=== PATIENT | female | born 1950 | race Caucasian/White ===

== ENCOUNTER → 2017-07-27 16:54 | Outpatient (CLI) | payer MEDICARE, OTHER, SELFPAY | PROVIDERS: Family Provider Family Medicine Geriatric Medicine; PCP Family Medicine Geriatric Medicine; Visit Provider Family Medicine Geriatric Medicine | DX: R68.83 Chills (without fever) (principal) | CPT/HCPCS: 87633 ==

== ENCOUNTER → 2017-08-10 13:49 | Outpatient (CLI) | payer MEDICARE, OTHER, SELFPAY ==
[2017-08-10 16:22] LABS: Absolute Lymphocyte Count 2.77 X10^3/ul (0.83-4.51); Absolute Neutrophil Count 4.8 X10^3/uL (2.0-7.7); Basophil# 0.03 X10^3/uL; Basophil% 0.4 % (0-1); Eosinophil# 0.08 X10^3/uL; Hematocrit 43.8 % (37-47); Hemoglobin 14.6 g/dl (12.0-15.0); Lymphocyte # 2.77 X10^3/ul (4.0); Lymphocyte % 32.9 % (19-41); Mean Corp Hgb Conc 33.3 g/gl (32-36); Mean Corpuscular Hgb 30.9 pg (27.0-32.0); Mean Corpuscular Volume 92.8 fL (81-99); Mean Platelet Vol. 9.9 fl (6.2-12.0); Monocyte# 0.74 X10^3/uL; Monocyte% 8.8 % (0-10); Neutrophil # 4.77 X10^3/uL (2.7-7.7); Neutrophil % 56.5 % (47-70); Platelet Count 322 K/mm3 (150-450); RBC Distribution Width SD 46.1 fl (35.1-43.9); Red Blood Count 4.72 M/mm3 (4.2-5.4); White Blood Count 8.4 K/mm3 (4.4-11.0)
[2017-08-10 16:23] LABS: POSITIVE COUNT NO; POSITIVE DIFFERENTIAL NO; POSITIVE MORPHOLOGY NO
[2017-08-10 16:40] LABS: Vitamin D,25 Hydroxy 31.4 ng/mL (29.95-100.01)
[2017-08-10 16:51] LABS: ALB/GLOB Ratio 1.1 RATIO (0.9-2.4); AST(SGOT) 26 U/L (15-37); Alanine Aminotransfer ALT/SGPT 38 U/L (13-56); Albumin, Serum 4.1 g/dL (3.2-5.0); Alkaline Phosphatase 57 U/L (45-117); Anion Gap 7 (5-15); BUN 14 mg/dL (7-18); BUN/Creat Ratio 15.4 RATIO (10-20); Calcium,Total 9.4 mg/dL (8.5-10.1); Chloride 105 mmol/L (98-107); Creatinine, Serum 0.91 mg/dL (0.55-1.02); EST Glomerular Filtration Rate 65 mL/min (>60); Est Glom Filt Rate - Afr Amer 79 mL/min (>60); Globulin 3.9 g/dL (2.2-4.2); Glucose 89 mg/dL (74-106); Potassium 4.2 mmol/L (3.5-5.1); Sodium Level 140 mmol/L (136-145)
== END ==
PROVIDERS: Family Provider Family Medicine Geriatric Medicine; PCP Family Medicine Geriatric Medicine; Visit Provider Family Medicine Geriatric Medicine
DX: I10 Essential (primary) hypertension (principal); E55.9 Vitamin D deficiency, unspecified
CPT/HCPCS: 36415; 80053; 82306; 84443; 85025

== ENCOUNTER 2017-08-17 18:15 | Observation (INO) | payer MEDICARE, OTHER, SELFPAY ==
[2017-08-17] VITALS (10 sets, daily range): BP systolic 149–161; BP diastolic 74–91; PULSE 78–101; RESP 16–18; TEMP 36.4–36.8; O2SAT 96–98; BMI 26.8; BMI 26.4
--- NOTE | 2017-08-17 18:31 | EKG12_ITS ---
Test Reason : CP Blood Pressure : / mmHG Vent. Rate : 090 BPM Atrial Rate : 090 BPM P-R Int : 138 ms QRS Dur : 082 ms QT Int : 392 ms P-R-T Axes : 065 -27 083 degrees QTc Int : 479 ms Normal sinus rhythm Nonspecific ST and T wave abnormality Abnormal ECG Confirmed by RADHA CAROLINA, GERARDO ([id number]), city editor NICANOR SANCHEZ ([id number]) on 08/23/2017 9:00:01 AM Referred By: DR RAMON Confirmed By:GERARDO GARCIA MD
--- NOTE | 2017-08-17 18:35 | RAD_ITS ---
STUDY: X-RAY CHEST REASON FOR EXAM: Female, 67 years old. Chest pain. TECHNIQUE: Single AP portable upright view of the chest. COMPARISON: PA and lateral chest x-ray December 09, 2016; CT chest/thorax March 30, 2017. FINDINGS: The lungs are clear and expanded. There is no demonstrated pleural abnormality. Normal size heart. Normal mediastinum and thomas. Normal visualized pulmonary arteries. There is stable atherosclerotic calcification of the aortic arch. There is a stable minor S-shaped scoliosis of the thoracic spine. There is an old healed fracture deformity of the posterolateral left seventh rib. There is no demonstrated abnormality of the visualized soft tissue structures of the upper abdomen. RAD/Chest 1 View (Portable) IMPRESSION: No acute cardiopulmonary disease. Electronically Signed: Shawn Mai MD at 19:22 EDT , Service support ,
[2017-08-17 18:43] LABS: Absolute Lymphocyte Count 3.29 X10^3/ul (0.83-4.51); Absolute Neutrophil Count 5.1 X10^3/uL (2.0-7.7); Basophil# 0.03 X10^3/uL; Basophil% 0.3 % (0-1); Eosinophil# 0.08 X10^3/uL; Eosinophils% 0.9 % (0-5); Hematocrit 44.1 % (37-47); Hemoglobin 15.2 g/dl (12.0-15.0); Lymphocyte # 3.29 X10^3/ul (4.0); Lymphocyte % 35.5 % (19-41); Mean Corp Hgb Conc 34.5 g/gl (32-36); Mean Corpuscular Hgb 31.6 pg (27.0-32.0); Mean Corpuscular Volume 91.7 fL (81-99); Mean Platelet Vol. 9.3 fl (6.2-12.0); Monocyte# 0.72 X10^3/uL; Monocyte% 7.8 % (0-10); Neutrophil # 5.13 X10^3/uL (2.7-7.7); Neutrophil % 55.3 % (47-70); POSITIVE COUNT NO; POSITIVE DIFFERENTIAL NO; POSITIVE MORPHOLOGY NO; Platelet Count 307 K/mm3 (150-450); RBC Distribution Width SD 46.2 fl (35.1-43.9); Red Blood Count 4.81 M/mm3 (4.2-5.4); White Blood Count 9.3 K/mm3 (4.4-11.0)
[2017-08-17] MEDS: Aspirin 81 MG TAB.CHEW 324 MG PO (18:49)
[2017-08-17] MEDS: 0.9% Normal Saline 1,000 ML 150 ML IV (18:50)
[2017-08-17 19:00] LABS: D-Dimer Quantitative (DVT/PE) 0.69 FEU/ug/m (0.27-0.49)
[2017-08-17 19:01] LABS: Anion Gap 9 (5-15); BUN 15 mg/dL (7-18); BUN/Creat Ratio 16.5 RATIO (10-20); Calcium,Total 9.3 mg/dL (8.5-10.1); Chloride 108 mmol/L (98-107); Creatinine, Serum 0.91 mg/dL (0.55-1.02); EST Glomerular Filtration Rate 65 mL/min (>60); Est Glom Filt Rate - Afr Amer 79 mL/min (>60); Estimated Creatinine Clearance 44.65 ml/min; Glucose 98 mg/dL (74-106); Lipase 191 U/L (73-393); Potassium 3.6 mmol/L (3.5-5.1); Sodium Level 143 mmol/L (136-145)
--- NOTE | 2017-08-17 19:02 | CT_ITS ---
STUDY: CTA CHEST REASON FOR EXAM: Female, 67 years old. Chest tightness. RADIATION DOSAGE (If Supplied By Facility): CTDIvol = ( 12.67 ) mGy, DLP = ( 508.29 ) mGycm TECHNIQUE: The examination was performed with the intravenous administration of 75ML ml of Isovue 370 contrast material. Post-processing of the angiographic images was performed, with multiplanar reformation and 3D reconstruction. Individualized dose optimization techniques were used for this CT. COMPARISON: September 13, 2016 FINDINGS: There are postsurgical changes within the left hemithorax. There are emphysematous changes present. There is minimal stable dependent atelectasis within the right lower lobe. Normal enhancement of the main pulmonary artery and right and left pulmonary arteries. Normal enhancement of the bilateral peripheral pulmonary arteries. There is no demonstrated pulmonary embolism. There is atherosclerotic calcification of the aortic arch and descending aorta. There is no demonstrated aortic dissection. Normal heart and pericardium. Normal mediastinum. Normal hilar regions. Normal visualized trachea and bronchi. There are degenerative changes of thoracic spine. The bones are appear demineralized. Normal visualized upper abdomen. CT/CTA Chest W/WO Contrast IMPRESSION: No demonstrated pulmonary embolism or arterial dissection. Emphysema. Atherosclerosis. Postsurgical changes within the left hemithorax. Electronically Signed: Birgit Ridley MD at 19:57 EDT Tel , Service support ,
--- NOTE | 2017-08-17 19:05 | ED.RN ---
dr. fernando aware elevated ddimer of 0.69
--- NOTE | 2017-08-17 20:21 | ED.VISSUMM ---
- ER Visit Summary Date of Service: 08/17/17 Chief Complaint: [Chest pain] History of Present Illness: The patient is a 67 F [presents to the emergency department with left-sided chest pain. Patient has had discomfort to the left side of her chest for several years. Patient states that she had her left lower lobe removed due to cancer of the lung. Patient states since that time she has had discomfort underneath her left breast. Symptoms have progressively worsened to the point now where with exertion she is feeling short of breath and having exacerbation of her symptoms. Patient at times feels like there is a band around her chest. Patient denies any nausea or vomiting. Patient denies diaphoresis.] Physical Examination: [HEENT-PERRLA, EOMI. Cranial nerves II through XII grossly intact. TMs clear. Mucous membranes moist. No adenopathy. Cardiovascular-regular rate and rhythm without murmur or ectopy Lungs-clear to auscultation, chest wall stable without crepitus or subcu emphysema. Patient has some tenderness palpation over the left anterior chest wall into the mid axillary region. Abdomen-normoactive bowel sounds, soft. Patient has some tenderness to palpation over the left upper abdomen. No rebound, rigidity, or perineal signs. Extremities-intact ?4, normal range of motion, normal pulses, atraumatic] Test Results: [EKG obtained showed a sinus rhythm with a ventricular rate of 90 bpm with some nonspecific ST changes noted laterally. CBC with differential was normal. Chemistries unremarkable. Troponin was less than 0.02. D-dimer was 0.69. CTA of the chest showed no evidence of PE or dissection.] Emergency Department Course and Treatment: [Patient received aspirin in the emergency department] Treatment Plan: [Case was discussed with hospitalist will evaluate patient for admission] Disposition: [Admit] Impression: [Chest pain-rule out acute coronary syndrome] This note was generated with [employer] dictation software. It may contain incorrect words, spelling, and punctuation that were not noted in review of the chart prior to signing ED Disposition - Plan for ED Patient: Chief Complaint: Chest Pain Referrals: Tim Hernandez Chi, MD [Primary Care Provider] -
--- NOTE | 2017-08-17 20:54 | PCM.HP.STD ---
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 She reports that since that time she has had incisional pain radiating from the thoracic back laterally around to the left upper quadrant, positional, worse when she moves it, with spasm in the left upper quadrant which sometimes radiates to the chest. She called primary care physician and was scheduled for physiotherapy next week, but was advised to come in to the emergency room if the pain worsened. She reports she has tried Tylenol and Advil. She does not like narcotics. She had similar presentation in 2015 for same; CAT scan of abdomen was unrevealing, and she was treated with opioid analgesics for short time. The patient denies exertional chest disomfort, but sometimes feels it when going up stairs. Medications prior to admission include levothyroxine, felodipine, Xanax at bedtime as needed, atorvastatin ED Evaluation: Vital signs stable, 98% room air, BP 149/84, afebrile Lab to include CBC, BMP, troponin, lipase are unrevealing CT chest contrast (indication elevated d-dimer) --> postsurgical changes left hemithorax, COPD changes, right lower lobe atelectasis, no evidence of thromboembolic issue or aortic dissection, no fractures, osteopenia, degenerative changes of thoracic spine EKG reveals normal sinus rhythm with nonspecific ST-T wave changes ED Course: Aspirin 324 mg p.o., fluids Patient is referred for observation. [] Past Medical History Past Medical History (Chronic Problems): Chronic Problems Non-small cell lung cancer (NSCLC) (Chronic) Acquired hypothyroidism (Chronic) Benign essential HTN (Chronic) Dizziness (Chronic) Hypertriglyceridemia (Chronic) Allergies doxycycline Allergy (Verified 08/17/17 18:19) Itching cephalexin Adverse Reaction (Verified 08/17/17 18:19) Other citalopram Adverse Reaction (Verified 08/17/17 18:19) Other metoclopramide [From Reglan] Adverse Reaction (Verified 04/04/18 18:19) Other morphine Adverse Reaction (Verified 08/17/17 18:19) Low blood pressure pregabalin Adverse Reaction (Verified 08/17/17 18:19) Other Home Medications: Ambulatory Orders Medication Instructions Recorded ALPRAZolam [Xanax] 0.5 mg PO QHS PRN 02/13/15 Felodipine [Plendil] 10 mg PO DAILY 02/13/15 Levothyroxine [Synthroid] 50 mcg PO DAILY 02/13/15 Ubidecarenone [Coq10] 50 mg PO DAILY 04/05/17 Atorvastatin Calcium [Lipitor] 10 mg PO QHS 08/17/17 Surgical History: appendectomy, cholecystectomy, hysterectomy Smoking Status: Former smoker - *Family History Paternal History Items: No pertinent history Review of Systems Comment: else as per HPI VTE Information - Inpt Only VTE Present on Admission: No VTE Mechan Device Prophylaxis: SCD's VTE Pharm Prophylaxis ordered?: Yes Patient Problems: Active and Suspected Problems Atypical chest pain (Acute) Thoracic back pain (Acute) - Physical Exam General: Alert, Oriented x3, Cooperative, No apparent distress HEENT: Atraumatic, PERRLA, EOMI Neck: Supple, No JVD, Negative Carotid Bruits Lungs: Clear to auscultation Cardiovascular: Regular rate, Regular Rhythm, Normal S1, Normal S2 Abdomen: Bowel Sounds Present, Soft, Non Tender, Non-Distended Extremities: No edema Musculoskeletal: - - tenderness along L thoracic paraspinal area wtih possible spasm L parathoracic; when she gets spasm pain wraps around to L upper abdomen in to L chest Vital Signs Temp Pulse Resp BP Pulse Ox 98.3 F 87 17 158/74 H 97 08/17/17 18:16 08/17/17 20:22 08/17/17 20:22 08/17/17 20:22 08/17/17 20:22 Oxygen Delivery Method Room Air Weight: 142 lb Body Mass Index (BMI) 26.8 Laboratory Tests Past 24 Hrs 08/17/17 08/17/17 08/17/17 18:25 18:25 18:25 WBC 9.3 RBC 4.81 Hgb 15.2 H Hct 44.1 MCV 91.7 MCH 31.6 MCHC 34.5 RDW 14.0 RDW Differential 46.2 H Plt Count 307 MPV 9.3 Immature Gran % (Auto) 0.200 Neut % (Auto) 55.3 Lymph % (Auto) 35.5 [place] % (Auto) 7.8 Eos % (Auto) 0.9 Baso % (Auto) 0.3 Absolute Neuts (auto) 5.1 Absolute Lymphs (auto) 3.29 Total Counted Not Reportable D-Dimer Quant (PE/DVT) 0.69 H* Sodium 143 Potassium 3.6 Chloride 108 H Carbon Dioxide 26.0 Anion Gap 9 BUN 15 Creatinine 0.91 Estim Creat Clear Calc 44.65 Est GFR (MDRD) Af Amer 79 Est GFR (MDRD) Non-Af 65 BUN/Creatinine Ratio 16.5 Glucose 98 Calcium 9.3 Troponin I < 0.02 Lipase 191 Assessment/Plan Active and Suspected Problems Atypical chest pain (Acute) Thoracic back pain (Acute) 67 year old F past medical history of fibromyalgia, HTN, HPL, back pain, postmenopausal, hypothyroid, status post cholecystectomy, appendectomy, hysterectomy, and 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 She reports that since that time she has had incisional pain radiating from the thoracic back laterally around to the left upper quadrant, positional, worse when she moves it, with spasm in the left upper quadrant which sometimes radiates to the chest. She called primary care physician and was scheduled for physiotherapy next week, but was advised to come in to the emergency room if the pain worsened. She reports she has tried Tylenol and Advil. She does not like narcotics. She had similar presentation in 2015 for same; CAT scan of abdomen was unrevealing, and she was treated with opioid analgesics for short time. Physical exam seems most consistent with musculoskeletal type thoracic back pain, radiating along the incision towards anterior abdomen, worse with positional changes. EKG reveals non specific changes Heart score = 3 - 4 1. chest pain with typical and atypical features (favor musculoskeletal) 2. thoracic back pain/spasm 3. Hypertension 4. Hypothyroidism 5. Hyperlipidemia 6. Status post left lobectomy for squamous cell carcinoma of the lung PLAN: observe telemetry serial cardiac biomarkers Tylenol prn, Advil prn, tizanidine prn, lidoderm patch q12 hr prn PT evaluation given risk factors.heart score, lexiscan in AM
[2017-08-17] MEDS: Atorvastatin Calcium 10 MG Tablet PO (22:05)
[2017-08-17] MEDS: Acetaminophen 325 MG Tablet 650 MG PO (23:12)
[2017-08-17] MEDS: ALPRAZolam 0.5 MG Tablet PO (23:12)
[2017-08-18] VITALS (8 sets, daily range): BP systolic 138–154; BP diastolic 58–86; PULSE 57–69; RESP 16–18; TEMP 36.4–36.6; O2SAT 95–98
[2017-08-18 02:43] LABS: Absolute Lymphocyte Count 2.39 X10^3/ul (0.83-4.51); Absolute Neutrophil Count 3.8 X10^3/uL (2.0-7.7); Basophil# 0.02 X10^3/uL; Basophil% 0.3 % (0-1); Eosinophil# 0.07 X10^3/uL; Hematocrit 38.2 % (37-47); Hemoglobin 12.8 g/dl (12.0-15.0); Lymphocyte # 2.39 X10^3/ul (4.0); Mean Corp Hgb Conc 33.5 g/gl (32-36); Mean Corpuscular Hgb 30.8 pg (27.0-32.0); Mean Platelet Vol. 9.3 fl (6.2-12.0); Monocyte% 7.3 % (0-10); Neutrophil # 3.84 X10^3/uL (2.7-7.7); Neutrophil % 56.3 % (47-70); Platelet Count 232 K/mm3 (150-450); RBC Distribution Width SD 47.2 fl (35.1-43.9); Red Blood Count 4.15 M/mm3 (4.2-5.4); White Blood Count 6.8 K/mm3 (4.4-11.0)
[2017-08-18 02:46] LABS: POSITIVE COUNT NO; POSITIVE DIFFERENTIAL NO; POSITIVE MORPHOLOGY NO
[2017-08-18 02:57] LABS: Prothrombin Time (Protime)PT. 13.4 SECONDS (11.7-14.9)
[2017-08-18 02:58] LABS: Partial Thromboplast Time 35.4 Seconds (24.1-36.2)
[2017-08-18 02:59] LABS: Anion Gap 8 (5-15); BUN 14 mg/dL (7-18); BUN/Creat Ratio 21.5 RATIO (10-20); Calcium,Total 8.4 mg/dL (8.5-10.1); Chloride 109 mmol/L (98-107); Cholesterol 137 mg/dL (200); Creatinine, Serum 0.65 mg/dL (0.55-1.02); EST Glomerular Filtration Rate 96 mL/min (>60); Est Glom Filt Rate - Afr Amer 116 mL/min (>60); Estimated Creatinine Clearance 40.63 ml/min; Glucose 83 mg/dL (74-106); High Density Lipoprotein 51 mg/dL; Potassium 3.7 mmol/L (3.5-5.1); Sodium Level 141 mmol/L (136-145); Triglycerides 273 mg/dL; Very Low Density Lipoprotein 55 mg/dL (5-40)
[2017-08-18] MEDS: Ibuprofen 600 MG Tablet PO ×2 (03:30→11:50)
[2017-08-18] MEDS: Levothyroxine 50 MCG Tablet PO (05:53)
--- NOTE | 2017-08-18 05:55 | EKG12_ITS ---
Test Reason : AM EKG Blood Pressure : / mmHG Vent. Rate : 064 BPM Atrial Rate : 064 BPM P-R Int : 150 ms QRS Dur : 076 ms QT Int : 446 ms P-R-T Axes : 071 -25 063 degrees QTc Int : 460 ms Normal sinus rhythm Nonspecific ST abnormality Abnormal ECG When compared with ECG of 17-AUG-2017 18:24, MANUAL COMPARISON REQUIRED, DATA IS UNCONFIRMED Confirmed by RADHA CAROLINA, GERARDO ([id number]), make up editor NICANOR SANCHEZ ([id number]) on 08/26/2017 12:50:08 PM Referred By: KAMAR Confirmed By:GERARDO GARCIA MD
[2017-08-18] MEDS: amLODIPine 10 MG Tablet PO (09:49)
--- NOTE | 2017-08-18 12:10 | STRESSREP_ITS ---
Stress Test Report Exercise myocardial perfusion stress test. 67-year-old lady with a history of chest pain. Stress protocol: Resting EKG demonstrates normal sinus rhythm with a rate of 61 bpm normal intervals and noted resting blood pressure is 152/84 mmHg. The patient exercised according to the regular Vincent protocol for a total duration of 4 minutes and 16 seconds. The maximum heart rate attained was 142 bpm which was 93% of the maximum predicted heart rate. The maximum workload attained was 6.1 metabolic equivalents. At rest there were no ST or T-wave changes noted suggest ischemia at peak exercise upsloping ST changes were noted we did not meet the criteria for ischemia. The patient did have shortness of breath and tightness in the mid chest though. The importance of the above is unclear at this time. The resting blood pressure is 152/84 with a peak blood pressure 182/ 84 mmHg. Myocardial perfusion protocol. 11.5 mCi of technetium 99m sestamibi was injected at rest. The patient exercised according to regular Vincent protocol for 4 minutes and 15 seconds attaining 93% maximum predicted heart rate and a workload of 6.1 metabolic equivalents. At peak exercise 32.8 mCi of technetium 99m sestamibi was injected stress images were obtained stress and rest images were reconstructed and compared in the short axis vertical long and horizontal long axis. Gated images were also obtained. Perfusion SPECT analysis. Review of the stress images demonstrate normal uptake of tracer noted in all areas of the myocardium. The resting images similarly demonstrate normal uptake of tracer noted in all areas of the myocardium. No areas of reversibility are noted suggest ischemia no previous infarct is noted. Gated SPECT analysis. The gated ejection fraction is noted to be 76%. Conclusion: Exercise stress test with no evidence of ischemia noted at a moderate workload. Shortness of breath and chest discomfort of unknown significance. Preserved ejection fraction.
--- NOTE | 2017-08-18 13:34 | PCM.DC ---
- Discharge Diagnoses Current Active Problems: Current Active and Chronic Problems Atypical chest pain (Acute) Thoracic back pain (Acute) You will use the following diet at home:: Cardiac Your food should be the consistency of: Regular Your liquids should be the consistency of: Regular/Thin Discharge Activity: Return to Normal Activity Allergies/Adverse Reactions: Allergies doxycycline Allergy (Verified 08/17/17 18:19) Itching cephalexin Adverse Reaction (Verified 08/17/17 18:19) Other citalopram Adverse Reaction (Verified 08/17/17 18:19) Other metoclopramide [From Reglan] Adverse Reaction (Verified 08/17/17 18:19) Other morphine Adverse Reaction (Verified 08/17/17 18:19) Low blood pressure pregabalin Adverse Reaction (Verified 08/17/17 18:19) Other Medications to take at Discharge ALPRAZolam [Xanax] 0.5 mg PO QHS PRN 02/13/15 Felodipine [Plendil] 10 mg PO DAILY 02/13/15 Levothyroxine [Synthroid] 50 mcg PO DAILY 02/13/15 Acetaminophen [Tylenol] 500 mg PO QHS PRN PRN 08/17/17 Atorvastatin Calcium [Lipitor] 10 mg PO QHS 08/17/17 Melatonin 5 - 10 mg PO PRN PRN 08/17/17 Primary Care Physician: Tim Hernandez Chi, MD [Primary Care Provider] - Please follow up with your Primary Care Physician in: 2 weeks Proposed Discharge Date: 08/18/17
--- NOTE | 2017-08-18 13:36 | PCM.DC.SUM ---
Discharge Date and Diagnosis - Problem List Patient Problems: Active and Suspected Problems Atypical chest pain (Acute) Thoracic back pain (Acute) Date of Admission: 08/17/17 Date of Discharge: 08/18/17 - Primary Discharge Diagnosis Active and Suspected Problems Atypical chest pain (Acute) - musculoskeletal HTN Hypothyroidism HLD Left squamous cell lung CA in remission s/p left lobectomy. - Secondary Discharge Diagnosis Chronic Problems Non-small cell lung cancer (NSCLC) (Chronic) Acquired hypothyroidism (Chronic) Benign essential HTN (Chronic) Dizziness (Chronic) Hypertriglyceridemia (Chronic) Hospital Course and Treatment Imaging Results: 08/18/17 05:55 Nuclear Stress Test - Treadmil [NM] Routine - negative Conclusion: Exercise stress test with no evidence of ischemia noted at a moderate workload. Shortness of breath and chest discomfort of unknown significance. Preserved ejection fraction. RAD/Chest 1 View (Portable) IMPRESSION: No acute cardiopulmonary disease. CT/CTA Chest W/WO Contrast IMPRESSION: No demonstrated pulmonary embolism or arterial dissection. Emphysema. Atherosclerosis. Postsurgical changes within the left hemithorax. Operations: None Procedures: Stress test Summary of Care Provided: The patient is a 67 year old F with a hx of HLD, HTN, left squamous cell lung cancer in remission status post left lower lobectomy presented to the emergency room with midsternal and left sided chest discomfort and pressure. She reported this was worse with climbing stairs. She had a negative EKG, negative troponin and was admitted for chest pain rule out. She was maintained on telemetry and no abnormalities were seen. EKG in the morning was negative. Stress test in the morning was negative. Troponins were negative ?3. She did develop some chest discomfort and shortness of breath on the treadmill but there is no evidence of ischemia. Her symptoms were felt to be musculoskeletal possibly secondary to prior surgery. She had stated that she had had issues with left-sided chest pain and nerve pain since her prior surgery. She was discharged in stable condition to home. Please follow up with your PCP in 2 weeks. This patient was seen by Shekhar Whiteside PA-C under the supervision of Doctor Persaud. [] Discharge Diet: Low fat/ Low Cholesterol, 2000 mg Sodium Diet Discharge Activity: Return to Normal Activity Home Medications: Medications to take at Discharge ALPRAZolam [Xanax] 0.5 mg PO QHS PRN 02/13/15 Felodipine [Plendil] 10 mg PO DAILY 02/13/15 Levothyroxine [Synthroid] 50 mcg PO DAILY 02/13/15 Acetaminophen [Tylenol] 500 mg PO QHS PRN PRN 08/17/17 Atorvastatin Calcium [Lipitor] 10 mg PO QHS 08/17/17 Melatonin 5 - 10 mg PO PRN PRN 08/17/17 Primary Care Physician: Tim Hernandez Chi, MD [Primary Care Provider] - Please follow up with your Primary Care Physician in: 2 weeks Disposition: Home Minutes spent on discharge:: 35 Patient Condition:: Stable Medical Necessity - Tobacco Use Smoking Status: Former smoker Meaningful Use Info Meaningful Use Diagnoses (Choose all that apply): None applicable
== END 2017-08-18 13:35 | disposition home or self-care (01) ==
LOC: ED 19:53 → PCU 21:02
PROVIDERS: Internal Medicine; Admitting Provider Hospitalist; Emergency Provider Emergency Medicine; Family Provider Family Medicine Geriatric Medicine; PCP Family Medicine Geriatric Medicine; Visit Provider Internal Medicine
DX: R07.89 Other chest pain (principal); M54.6 Pain in thoracic spine; M79.7 Fibromyalgia; I10 Essential (primary) hypertension; E03.9 Hypothyroidism, unspecified; J44.9 Chronic obstructive pulmonary disease, unspecified; R42 Dizziness and giddiness; E78.5 Hyperlipidemia, unspecified; Z85.118 Personal history of other malignant neoplasm of bronchus and lung; Z79.899 Other long term (current) drug therapy; Z87.891 Personal history of nicotine dependence
CPT/HCPCS: 36415; 71045; 71275; 78452; 80048; 80061; 83690; 84484; 85025; 85379; 85610; 85730; 93005; 93017; 96360; 96361; 96372; 99218; 99283; A9500; J7030; Q9967; A4216; G0378; J2785

== ENCOUNTER → 2017-12-20 18:17 | Outpatient (CLI) | payer MEDICARE, OTHER, SELFPAY | PROVIDERS: Family Provider Family Medicine Geriatric Medicine; PCP Family Medicine Geriatric Medicine; Visit Provider Nurse Practitioner Women's Health | DX: N76.0 Acute vaginitis (principal) | CPT/HCPCS: 87070; 87075; 87205 ==

== ENCOUNTER → 2018-01-03 16:44 | Outpatient (CLI) | payer MEDICARE, OTHER, SELFPAY ==
[2018-01-03 17:15] LABS: Absolute Lymphocyte Count 2.66 X10^3/ul (0.83-4.51); Absolute Neutrophil Count 3.8 X10^3/uL (2.0-7.7); Basophil# 0.03 X10^3/uL; Basophil% 0.4 % (0-1); Eosinophil# 0.11 X10^3/uL; Eosinophils% 1.5 % (0-5); Hematocrit 43.2 % (37-47); Hemoglobin 14.3 g/dl (12.0-15.0); Lymphocyte # 2.66 X10^3/ul (4.0); Lymphocyte % 36.4 % (19-41); Mean Corp Hgb Conc 33.1 g/gl (32-36); Mean Corpuscular Hgb 30.5 pg (27.0-32.0); Mean Corpuscular Volume 92.1 fL (81-99); Mean Platelet Vol. 9.5 fl (6.2-12.0); Monocyte# 0.68 X10^3/uL; Monocyte% 9.3 % (0-10); Neutrophil # 3.82 X10^3/uL (2.7-7.7); Neutrophil % 52.3 % (47-70); Platelet Count 296 K/mm3 (150-450); RBC Distribution Width CV 13.2 % (11.6-14.6); RBC Distribution Width SD 43.8 fl (35.1-43.9); Red Blood Count 4.69 M/mm3 (4.2-5.4); White Blood Count 7.3 K/mm3 (4.4-11.0)
[2018-01-03 17:19] LABS: POSITIVE COUNT NO; POSITIVE DIFFERENTIAL NO; POSITIVE MORPHOLOGY NO
[2018-01-03 18:01] LABS: AST(SGOT) 25 U/L (15-37); Alanine Aminotransfer ALT/SGPT 32 U/L (13-56); Albumin, Serum 3.9 g/dL (3.2-5.0); Alkaline Phosphatase 77 U/L (45-117); Anion Gap 12 (5-15); BUN 11 mg/dL (7-18); BUN/Creat Ratio 13.3 RATIO (10-20); Calcium,Total 9.4 mg/dL (8.5-10.1); Chloride 106 mmol/L (98-107); Creatinine, Serum 0.82 mg/dL (0.55-1.02); EST Glomerular Filtration Rate 73 mL/min (>60); Est Glom Filt Rate - Afr Amer 88 mL/min (>60); Globulin 4.1 g/dL (2.2-4.2); Glucose 94 mg/dL (74-106); Potassium 3.8 mmol/L (3.5-5.1); Sodium Level 143 mmol/L (136-145)
== END ==
PROVIDERS: Family Provider Family Medicine Geriatric Medicine; PCP Family Medicine Geriatric Medicine; Visit Provider Family Medicine Geriatric Medicine
DX: R10.9 Unspecified abdominal pain (principal)
CPT/HCPCS: 36415; 80053; 85025

== ENCOUNTER → 2018-01-03 17:00 | Outpatient (CLI) | payer MEDICARE, OTHER, SELFPAY | PROVIDERS: Family Provider Family Medicine Geriatric Medicine; PCP Family Medicine Geriatric Medicine; Visit Provider Family Medicine Geriatric Medicine | DX: N39.0 Urinary tract infection, site not specified (principal) | CPT/HCPCS: 36415; 80053; 85025; 87086; 87088 ==

== ENCOUNTER → 2018-01-03 18:08 | Outpatient (CLI) | payer MEDICARE, OTHER, SELFPAY | PROVIDERS: Family Provider Family Medicine Geriatric Medicine; PCP Family Medicine Geriatric Medicine; Visit Provider Family Medicine Geriatric Medicine | DX: R10.9 Unspecified abdominal pain (principal); N39.0 Urinary tract infection, site not specified | CPT/HCPCS: 36415; 74177; 80053; 85025; 87086; 87088; Q9967 ==

== ENCOUNTER 2018-03-24 16:43 | Inpatient (IN) | payer MEDICARE, OTHER, SELFPAY ==
[2018-03-24 16:44] VITALS: BP 137/52; PULSE 100; RESP 17; TEMP 36.6; O2SAT 96; BMI 27.3
[2018-03-24 16:51] VITALS: BP 150/103; PULSE 111; RESP 22
--- NOTE | 2018-03-24 17:03 | CT_ITS ---
STUDY: CT ABDOMEN AND PELVIS WITH CONTRAST REASON FOR EXAM: Female, 68 years old. Low to mid abdominal pain nausea GI bleed RADIATION DOSAGE (If Supplied By Facility): CTDIvol = ( 15.95 ) mGy, DLP = ( 744.68 ) mGycm TECHNIQUE: Transaxial images were obtained from the dome of the diaphragm to the symphysis pubis without oral contrast. 100ML ml of Isovue 300 contrast was administered. Sagittal and coronal images were reconstructed. Individualized dose optimization techniques were used for this CT. COMPARISON: December 15, 2016 CT scan abdomen and pelvis, January 03, 2018 CT scan abdomen and pelvis FINDINGS: The visualized lung bases are unremarkable. The visualized portions of the heart are within normal limits. Normal liver. There is non-visualization of the gallbladder, which may be secondary to either contraction or a prior cholecystectomy. Normal spleen. Normal pancreas. Normal bilateral adrenal glands. There is [id number] right hydronephrosis and right hydroureter which is new since December 15, 2016 and persisting and worse since January 03, 2018. There is minimal left hydroureter. The bladder is distended. There is a small hiatal hernia. Normal small intestine. There are numerous diverticula present within the descending colon. There is visualized focal mild mucosal thickening and a featureless appearance of the bowel within the distal transverse colon to the distal descending colon. The appendix is visualized and appears normal. The aorta is partially calcified. There is a narrowed appearance of the aortic lumen and caliber measuring approximately 7.0 x 1.0 mm. There is calcification in the bilateral iliac arteries. Normal inferior vena cava. Normal retroperitoneum. The bladder is overdistended. The bladder measures 12 x 5.6 x 10.8 cm. There is absence of the uterus consistent with a prior hysterectomy. Normal abdominal wall. Normal osseous structures. CT/Abdomen/Pelvis WITH Contrast IMPRESSION: There is persistent right-sided hydronephrosis. There is a suggestion of a possible focus of punctate stone or other potentially intraluminal material infection or mass within the distal right ureter image #83 of the axial views. It is at this level that there is abrupt narrowing of the right ureter. Recommend consideration for follow-up urology study consideration for urogram. There is a decompressed mildly thick-walled appearance of the colon from the distal transverse colon to the descending colon. Findings are suspicious for mild colitis. Status post cholecystectomy. Status post hysterectomy. Diverticulosis no visualized diverticulitis. Electronically Signed: Elizabet Quinones MD at 19:17 EST Tel , Service support ,
--- NOTE | 2018-03-24 17:07 | ED.DCSUM_ITS ---
- ER Visit Summary Date of Service: 03/24/18 Chief Complaint: Abdominal pain History of Present Illness: The patient is a 68 F who presents with abdominal pain that began approximate 2 hours prior to arrival. Patient describes the pain is cramping and burning. Patient states the pain is over the lower abd omen. Patient states she did have a bowel movement and noted blood in her stools. She admits to some nausea but denies any vomiting. Patient admits to subjective chills but denies any fevers. Patient denies any dysuria or hematuria. Physical Examination: Vital signs are stable. Patient is afebrile. Patient is in no acute distress. Oral mucosa is pink and moist. Oropharynx is clear. Neck is supple. Trachea is midline. There is no JVD noted. Heart was regular rate and rhythm. Lungs are clear and equal bilaterally. Abdomen is soft. Bowel sounds are normal. There is no tenderness. There is no guarding noted. There are no masses palpated. Rectal exam showed good sphincter tone. There is minimal stool on exam. There is no gross blood noted. There were no masses palpated. Cranial nerves II through XII are intact. There are no focal motor or sensory deficits noted. The remaining physical exam is within normal limits. Test Results: CBC shows a normal hemoglobin at 14.4 and a normal white blood cell count. Comprehensive metabolic profile showed mild hypokalemia of 3.4. Urinalysis was normal. CT scan of the abdomen and pelvis with oral and IV contrast showed mild colitis and a possible stone at the right distal ureter with right hydronephrosis and hydroureter. Emergency Department Course and Treatment: Patient was given Bentyl initially. Patient had minimal relief with this. Patient was then given a dose of Dilaudid and Phenergan. Case was discussed with Dr. Hernandez. He will admit the patient to his service. Case was also discussed with Dr. Hardy. He will see the patient in consultation. Disposition: Admit to hospital Impression: 1. Lower GI bleed 2. Colitis 3. Right distal ureteral calculus This note was generated with [employer] software. It may contain incorrect words, spelling, and punctuation that were not noted in review of the chart prior to signing ED Disposition - Plan for ED Patient: Disposition: Acute Care Hospital [facility] Chief Complaint: GI Bleed Diagnosis: Lower gastrointestinal bleeding, Colitis, Right distal ureteral calculus Referrals: Yadira Alston MD [Primary Care Provider] -
[2018-03-24] MEDS: 0.9% Normal Saline 1,000 ML 1000 ML IV (17:19)
[2018-03-24] MEDS: Dicyclomine 20 MG/2 ML Vial IM (17:19)
[2018-03-24 17:20] LABS: Absolute Lymphocyte Count 3.79 X10^3/ul (0.83-4.51); Absolute Neutrophil Count 4.3 X10^3/uL (2.0-7.7); Basophil# 0.03 X10^3/uL; Basophil% 0.3 % (0-1); Eosinophil# 0.15 X10^3/uL; Eosinophils% 1.6 % (0-5); Hematocrit 43.3 % (37-47); Hemoglobin 14.4 g/dl (12.0-15.0); Lymphocyte # 3.79 X10^3/ul (4.0); Lymphocyte % 41.2 % (19-41); Mean Corp Hgb Conc 33.3 g/gl (32-36); Mean Corpuscular Hgb 30.6 pg (27.0-32.0); Mean Corpuscular Volume 92.1 fL (81-99); Mean Platelet Vol. 9.7 fl (6.2-12.0); Monocyte# 0.87 X10^3/uL; Monocyte% 9.5 % (0-10); Neutrophil # 4.34 X10^3/uL (2.7-7.7); Neutrophil % 47.3 % (47-70); Platelet Count 342 K/mm3 (150-450); RBC Distribution Width CV 13.4 % (11.6-14.6); White Blood Count 9.2 K/mm3 (4.4-11.0)
[2018-03-24 17:25] LABS: POSITIVE COUNT NO; POSITIVE DIFFERENTIAL NO; POSITIVE MORPHOLOGY NO
--- NOTE | 2018-03-24 17:41 | ED.RN ---
occult stool pos called from the lab. dr eagle aware
[2018-03-24 17:57] LABS: BUN 12 mg/dL (7-18); Creatinine, Serum 0.97 mg/dL (0.55-1.02); Glucose 188 mg/dL (74-106)
[2018-03-24 17:58] LABS: AST(SGOT) 23 U/L (15-37); Alanine Aminotransfer ALT/SGPT 34 U/L (13-56); Albumin, Serum 4.1 g/dL (3.2-5.0); Alkaline Phosphatase 94 U/L (45-117); Anion Gap 10 (5-15); BUN/Creat Ratio 12.3 RATIO (10-20); Chloride 106 mmol/L (98-107); EST Glomerular Filtration Rate 60 mL/min (>60); Est Glom Filt Rate - Afr Amer 73 mL/min (>60); Globulin 4.1 g/dL (2.2-4.2); Lipase 170 U/L (73-393); Potassium 3.4 mmol/L (3.5-5.1); Protein, Total 8.2 g/dL (6.4-8.2); Sodium Level 140 mmol/L (136-145)
[2018-03-24 18:03] LABS: Bacteria 0 SEEN /hpf (None Seen); Mucous, Urine 0 SEEN /hpf (<or=2+); Red Blood Cells-Urine 0 SEEN /hpf (0-5); Squamous Epithelial Cells - UA 0 SEEN /hpf (5-10); White Blood Cells 0 SEEN /hpf (0-5)
[2018-03-24 18:15] LABS: Glucose, Dipstick Normal (Normal); Ketone-Dipstick Negative (Negative); Leukocyte Esterase-Dipstick Negative /ul (Negative); Nitrite-Dipstick Negative (Negative); Occult Blood-Urine Negative /ul (Negative); Protein-Dipstick Negative (Negative); Urine Bilirubin Dipstick Negative (Negative); Urine Urobilinogen Normal (Normal); Urine pH 6.5 (5.0 - 8.0)
[2018-03-24 18:25] LABS: Color, Urine Yellow (Yellow); Urine Clarity Clear (Clear)
[2018-03-24 18:53] VITALS: BP 156/67; PULSE 90; RESP 13; O2SAT 96
[2018-03-24] MEDS: HYDROmorphone 0.5 MG/0.5 ML SYRINGE IV (20:08)
[2018-03-24] MEDS: proMETHazine 25 MG/ML Syringe 6.25 MG IV (20:09)
[2018-03-24 20:11] VITALS: BP 159/73; PULSE 97; RESP 22; O2SAT 94
--- NOTE | 2018-03-24 20:57 | HP.PCM_ITS ---
Problem List (1) Left sided colitis Status: Acute (2) Lower gastrointestinal bleeding Status: Acute (3) Right distal ureteral calculus Status: Acute (4) Fibromyalgia Status: Chronic (5) IBS (irritable bowel syndrome) Status: Chronic (6) Thoracic neuritis Status: Chronic (7) Segmental and somatic dysfunction of lumbar region Status: Chronic (8) Segmental and somatic dysfunction of thoracic region Status: Chronic (9) Atypical chest pain Status: Resolved (10) Thoracic back pain Status: Chronic (11) Non-small cell lung cancer (NSCLC) Status: Chronic Qualifiers: (12) Acquired hypothyroidism Status: Chronic (13) Benign essential HTN Status: Chronic (14) Dizziness Status: Chronic (15) Hypertriglyceridemia Status: Chronic (16) Odynophagia Status: Chronic History of Present Illness Date of Admission: 03/24/18 Chief Complaint: Abdominal pain and lower GI bleed The patient is a 68 year old F with multiple comorbidities including left lungs, cell carcinoma, follows Dr. Canas came to ED with abdominal pain and bright red blood per rectum since morning today. Patient further said she felt little nauseated yesterday but today in the morning she started having abdominal pain mainly in the mid abdomen got diffuse with cramps. She had 2-3 loose bowel movements and bright red rectal bleed. She had completed H pylori triple treatment about 3-4 months ago. She also had colonoscopy by Dr. Troy Ochoa about year ago and polypectomy was done which is reported as benign. Patient denies vomiting but has nausea. She feels dehydrated, thirsty. She denies fever or chills. In ED, she is tachycardic heart rate in 110s, respiratory [address] abdomen and pelvis with IV contrast was done and reported as required left-sided colon from the distal transverse to descending colon suspicious of mild colitis. Incidental finding of persistent right-sided hydronephrosis with suggestion of possible focus of punctate stone in the distal right ureter with abrupt narrowing of right ureter beyond this level. The patient denies prior history of urinary tract stone or renal angle pain or hematuria. Patient has not followed any urologist in the past. Patient was further admitted [] Past Medical History Past Medical History (Chronic Problems): Chronic Problems (Last Reviewed 12/20/17 @ 13:48 by Carissa Falcon) Fibromyalgia (Chronic) IBS (irritable bowel syndrome) (Chronic) Thoracic neuritis (Chronic) Segmental and somatic dysfunction of lumbar region (Chronic) Segmental and somatic dysfunction of thoracic region (Chronic) Thoracic back pain (Chronic) Non-small cell lung cancer (NSCLC) (Chronic) Acquired hypothyroidism (Chronic) Benign essential HTN (Chronic) Dizziness (Chronic) Hypertriglyceridemia (Chronic) Odynophagia (Chronic) Medical History: Medical History (Last Reviewed 12/20/17 @ 13:48 by Carissa Falcon) Fibromyalgia (Chronic) M79.7 IBS (irritable bowel syndrome) (Chronic) K58.9 Allergies doxycycline Allergy (Verified 03/24/18 16:44) Itching cephalexin Adverse Reaction (Verified 03/24/18 16:44) Other citalopram Adverse Reaction (Verified 03/24/18 16:44) Other metoclopramide [From Reglan] Adverse Reaction (Verified 03/24/18 16:44) Other morphine Adverse Reaction (Verified 03/24/18 16:44) Low blood pressure pregabalin Adverse Reaction (Verified 03/24/18 16:44) Other Home Medications: Ambulatory Orders Medication Instructions Recorded ALPRAZolam [Xanax] 0.5 mg PO QHS PRN 02/13/15 Felodipine [Plendil] 10 mg PO DAILY 02/13/15 Levothyroxine [Synthroid] 50 mcg PO DAILY 02/13/15 Atorvastatin Calcium [Lipitor] 10 mg PO QHS 08/17/17 Albuterol Sulfate [Ventolin Hfa] 1 - 2 puff INHALATION PRN PRN 03/24/18 Ergocalciferol (Vitamin D2) 50,000 unit PO QMONTH 03/24/18 [Drisdol] Ibuprofen/Diphenhydramine Cit 2 tab PO QHS 03/24/18 [Advil Pm Caplet] Surgical History: Surgical History (Last Reviewed 12/20/17 @ 13:48 by Carissa Falcon) H/O cataract extraction Z98.49 bilateral S/P appendectomy Z90.49 S/P bilateral foot surgery Z98.890 S/P breast biopsy, bilateral Z98.890 with clip in left breast S/P cholecystectomy Z90.49 S/P partial lobectomy of lung Z90.2 left due to lung cancer S/P removal of ovarian cyst Z98.890, Z87.42 Surgical History: appendectomy, cholecystectomy, hysterectomy Smoking Status: Former smoker - *Family History Paternal Family History: Family History (Last Reviewed 12/20/17 @ 13:48 by Carissa Falcon) Mother Diabetes Lung cancer CHF (congestive heart failure) Hypertension Father CHF (congestive heart failure) Hypertension Brother Hypertension Sister Hypertension Diabetes Aunt Breast cancer Other Heart disease History Items: No pertinent history Review of Systems Constitutional: Reports: Anorexia, Weakness, Fatigue. Denies: Chills, Fever, Weight Change HEENT: Denies: Head Aches, Sinus Congestion, Sinus Drainage Cardiovascular: Denies: Chest Pain, Palpitations Respiratory: Denies: Cough, Shortness of breath at rest, Sputum production Gastrointestinal: Reports: Abdominal Pain, Diarrhea, Hematochezia, Nausea. Denies: Vomiting Genitourinary: Denies: Dysuria, Frequency, Hematuria Musculoskeletal: Reports: Back Pain, Joint Pain. Denies: Joint Tenderness Skin: Denies: Rash, Wounds Neurological: Denies: Numbness, Tingling, Focal weakness Psychiatric: Reports: Anxiety. Denies: Depression, Homicidal Ideations, Suicidal Ideations Hematologic/ Lymphatic: Denies: Easy Bruising, Easy Bleeding VTE Information - Inpt Only VTE Present on Admission: No VTE Mechan Device Prophylaxis: SCD's VTE Pharm Prophylaxis ordered?: No Reason prophylaxis not ordered:: Medical Contraindication - Lower GI bleed Patient Problems: Active and Suspected Problems (Last Reviewed 12/20/17 @ 13:48 by Carissa Falcon) Lower gastrointestinal bleeding (Acute) Right distal ureteral calculus (Acute) Left sided colitis (Acute) - Physical Exam General: Alert, Oriented x3, Cooperative HEENT: Atraumatic, PERRLA, EOMI, Normocephalic Oral: Dry Mucosa Neck: Supple, No JVD, Negative Carotid Bruits Lungs: Clear to auscultation, No rhonchi, No wheeze, No rales, Diminished - Air entry diminished in bilateral lung bases Cardiovascular: Regular rate, No murmurs Abdomen: Bowel Sounds Present, Soft, Tender - diffuse tenderness but predominantly over left upper and left lower quadrant. No rebound tenderness/guarding or rigidity. Extremities: Capillary Refill Less than 3 Seconds, Edema Skin: No rashes, No breakdown Musculoskeletal: No Tenderness to Palpation of Joints or Extremities, Arthritic Changes, Muscle Wasting Neurological: Cranial nerves II-XII grossly intact, Deep Tendon Reflexes 2+/4 and Symmetrical, Neuro grossly intact Psych/Mental Status: Normal Affect, Appropriate Vital Signs Temp Pulse Resp BP Pulse Ox 97.9 F 97 22 H 159/73 H 94 03/24/18 16:44 03/24/18 20:11 03/24/18 20:11 03/24/18 20:11 03/24/18 20:11 Oxygen Delivery Method Room Air Weight: 144 lb 9.972 oz Body Mass Index (BMI) 27.3 Microbiology Past 72 Hours 03/24/18 17:00 Stool Occult Blood ([facility]) - Final Stool Occult Blood Positive Laboratory Tests Past 24 Hrs 03/24/18 03/24/18 03/24/18 17:00 17:00 17:54 WBC 9.2 RBC 4.70 Hgb 14.4 Hct 43.3 MCV 92.1 MCH 30.6 MCHC 33.3 RDW 13.4 RDW Differential 45.0 H Plt Count 342 MPV 9.7 Immature Gran % (Auto) 0.100 Neut % (Auto) 47.3 Lymph % (Auto) 41.2 H [place] % (Auto) 9.5 Eos % (Auto) 1.6 Baso % (Auto) 0.3 Absolute Neuts (auto) 4.3 Absolute Lymphs (auto) 3.79 Total Counted Not Reportable Sodium 140 Potassium 3.4 L Chloride 106 Carbon Dioxide 24.0 Anion Gap 10 BUN 12 Creatinine 0.97 Estim Creat Clear Calc 41.30 Est GFR (MDRD) Af Amer 73 Est GFR (MDRD) Non-Af 60 BUN/Creatinine Ratio 12.3 Glucose 188 H Calcium 9.0 Total Bilirubin 0.30 AST 23 ALT 34 Alkaline Phosphatase 94 Total Protein 8.2 Albumin 4.1 Globulin 4.1 Albumin/Globulin Ratio 1.0 Lipase 170 Urine Color Yellow Urine Clarity Clear Urine pH 6.5 Ur Specific [place] 1.010 Urine Protein Negative Urine Glucose (UA) Normal Urine Ketones Negative Urine Occult Blood Negative Urine Nitrite Negative Urine Bilirubin Negative Urine Urobilinogen Normal Ur Leukocyte Esterase Negative Urine RBC 0 SEEN Urine WBC 0 SEEN Ur Squamous Epith Cells 0 SEEN Urine Bacteria 0 SEEN Urine Mucus 0 SEEN Assessment/Plan All Active Problems (Last Reviewed 12/20/17 @ 13:48 by Carissa Falcon) Lower gastrointestinal bleeding (Acute) Right distal ureteral calculus (Acute) Left sided colitis (Acute) Atypical chest pain (Resolved) The patient is a 68 year old F with multiple comorbidities including left lung squamous cell carcinoma, follows Dr. Canas came to ED with abdominal pain and bright red blood per rectum since morning today. Patient further said she felt little nauseated yesterday but today in the morning she started having abdominal pain mainly in the mid abdomen got diffuse with cramps. She had 2-3 loose bowel movements and bright red rectal bleed. She had completed H pylori triple treatment about 3-4 months ago. She also had colonoscopy by Dr. Troy Ochoa about year ago and polypectomy was done which is reported as benign. Patient denies vomiting but has nausea. She feels dehydrated, thirsty. She denies fever or chills. In ED, she is tachycardic heart rate in 110s, respiratory [address] abdomen and pelvis with IV contrast was done and reported as required left-sided colon from the distal transverse to descending colon suspicious of mild colitis. Incidental finding of persistent right-sided hydronephrosis with suggestion of possible focus of punctate stone in the distal right ureter with abrupt narrowing of right ureter beyond this level. The patient denies prior history of urinary tract stone or renal angle pain or hematuria. Patient has not followed any urologist in the past. Patient was further admitted 1. Acute left-sided distal colitis, most probably infectious colitis: Patient is being admitted on the regular [facility] floor. H&H 14.4/43.4. Baseline hemoglobin 12.8/38.2, therefore most likely hemoconcentration. IV fluid normal saline 150 mL/h. ER physician consulted Dr. Keith. Stool studies including leukocytes, C. difficile and enteric [place] panel ordered. Empirically, started on IV Cipro and Flagyl. Monitor intake and output. 2. Acute lower GI bleed, most probably secondary to infectious colitis: Monitor H&H. Rest as above. 3. Mild hypokalemia: Potassium being replaced 4. Right distal ureteric obstruction possible punctate stone with proximal right hydronephrosis: UA is negative of hematuria. Patient is on IV antibiotics. Consult urology for further opinion and recommendation. 5 Left left lung squamous cell carcinoma, follows Dr. Canas. Patient does not have respiratory symptoms now 6. Benign essential hypertension, acquired hypothyroidism: Continue home medication. TSH and free T4 ordered. 7. Mild hyperglycemia: Glucose in [facility] is 188. Previous glucose in [facility] were normal. A1c ordered for tomorrow a.m. 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 DVT prophylaxis: Pharmacological prophylaxis contraindicated because of acute lower GI bleed. Bilateral SCDs This note was generated with [employer] dictation software. Every effort was made to ensure accuracy, however computerized graphic art designer mistakes may persist. Code Visit Inpatient E&M: 71951 Init Hosp L3
[2018-03-24 22:38] VITALS: BP 152/77; PULSE 82; RESP 16; TEMP 36.3; O2SAT 93; BMI 27.6
[2018-03-24] MEDS: 0.9% Normal Saline 1,000 ML 150 ML IV (23:11)
[2018-03-24] MEDS: Tamsulosin HCl 0.4 MG Capsule PO (23:16)
[2018-03-24] MEDS: Atorvastatin Calcium 10 MG Tablet PO (23:17)
[2018-03-25] MEDS: Ciprofloxacin 400 MG/200 ML BAG 200 MG IV ×3 (00:27→21:48)
[2018-03-25 06:00] VITALS: BP 150/68; PULSE 75; RESP 18; TEMP 36.4; O2SAT 97
[2018-03-25] MEDS: Levothyroxine 50 MCG Tablet PO (06:04)
[2018-03-25 07:19] LABS: Absolute Lymphocyte Count 2.02 X10^3/ul (0.83-4.51); Absolute Neutrophil Count 3.8 X10^3/uL (2.0-7.7); Basophil# 0.03 X10^3/uL; Basophil% 0.5 % (0-1); Eosinophil# 0.15 X10^3/uL; Eosinophils% 2.3 % (0-5); Hematocrit 39.1 % (37-47); Hemoglobin 12.7 g/dl (12.0-15.0); Lymphocyte # 2.02 X10^3/ul (4.0); Lymphocyte % 30.6 % (19-41); Mean Corp Hgb Conc 32.5 g/gl (32-36); Mean Corpuscular Hgb 30.1 pg (27.0-32.0); Mean Corpuscular Volume 92.7 fL (81-99); Mean Platelet Vol. 9.9 fl (6.2-12.0); Monocyte# 0.55 X10^3/uL; Monocyte% 8.3 % (0-10); Neutrophil # 3.84 X10^3/uL (2.7-7.7); Neutrophil % 58.1 % (47-70); Platelet Count 261 K/mm3 (150-450); RBC Distribution Width CV 13.4 % (11.6-14.6); RBC Distribution Width SD 44.3 fl (35.1-43.9); Red Blood Count 4.22 M/mm3 (4.2-5.4); White Blood Count 6.6 K/mm3 (4.4-11.0)
[2018-03-25 07:20] LABS: POSITIVE COUNT NO; POSITIVE DIFFERENTIAL NO; POSITIVE MORPHOLOGY NO
--- NOTE | 2018-03-25 07:34 | PCM.PN.HOSP ---
Patient Problems: Active and Suspected Problems (Last Reviewed 12/20/17 @ 13:48 by Carissa Falcon) Lower gastrointestinal bleeding (Acute) Right distal ureteral calculus (Acute) Left sided colitis (Acute) Colitis (Acute) Subjective: Patient is a 68-year-old lady who presented with lower abdominal pain associated with right straight blood per rectum CT of the abdomen on admission demonstrated features consistent with transverse and descending colon colitis. Admitted to regular nursing floor where patient has been managed Objective: GENERAL: cooperative HEENT: Atraumatic; moist oral mucosa EYES; Anicteric, Normal Conjunctiva NECK; supple, normal thyroid, no distended JVD. RESPIRATORY: Diminished to auscultation bilaterally, CARDIOVASCULAR: Regular S1 S2, no audible murmurs GI: soft, non-tender, normoactive bowel sounds, : No Renal angle tenderness; EXTREMITIES: No edema, no clubbing, no cyanosis. MUSCULOSKELETAL: No Joint Tenderness; no muscle waisting NEURO: Awake; no lateralizing signs. SKIN: No Rash PSYCH; Normal affect Vitals/I&O's: Vital Signs Temp Pulse Resp BP Pulse Ox 97.6 F L 75 18 150/68 H 97 03/25/18 06:00 03/25/18 06:00 03/25/18 06:00 03/25/18 06:00 03/25/18 06:00 Oxygen Delivery Method Room Air Weight: 66.451 kg Body Mass Index (BMI) 27.6 Intake and Output for Last 24 Hours 03/23/18 03/24/18 03/25/18 23:59 23:59 23:59 Intake Total 1400 / 1400 Balance 1400 / 1400 Microbiology Past 72 Hours 03/24/18 17:00 Stool Stool Occult Blood ([facility]) - Final Occult Blood Positive Laboratory Results 03/24/18 17:00: WBC 9.2, RBC 4.70, Hgb 14.4, Hct 43.3, MCV 92.1, MCH 30.6, MCHC 33.3, RDW 13.4, RDW Differential 45.0 H, Plt Count 342, MPV 9.7, Immature Gran % (Auto) 0.100, Neut % (Auto) 47.3, Lymph % (Auto) 41.2 H, [place] % (Auto) 9.5, Eos % (Auto) 1.6, Baso % (Auto) 0.3, Absolute Neuts (auto) 4.3, Absolute Lymphs (auto) 3.79, Total Counted Not Reportable 03/24/18 17:00: Sodium 140, Potassium 3.4 L, Chloride 106, Carbon Dioxide 24.0, Anion Gap 10, BUN 12, Creatinine 0.97, Estim Creat Clear Calc 41.30, Est GFR (MDRD) Af Amer 73, Est GFR (MDRD) Non-Af 60, BUN/Creatinine Ratio 12.3, Glucose 188 H, Calcium 9.0, Total Bilirubin 0.30, AST 23, ALT 34, Alkaline Phosphatase 94, Total Protein 8.2, Albumin 4.1, Globulin 4.1, Albumin/Globulin Ratio 1.0, Lipase 170 03/24/18 17:54: Urine Color Yellow, Urine Clarity Clear, Urine pH 6.5, Ur Specific [place] 1.010, Urine Protein Negative, Urine Glucose (UA) Normal, Urine Ketones Negative, Urine Occult Blood Negative, Urine Nitrite Negative, Urine Bilirubin Negative, Urine Urobilinogen Normal, Ur Leukocyte Esterase Negative, Urine RBC 0 SEEN, Urine WBC 0 SEEN, Ur Squamous Epith Cells 0 SEEN, Urine Bacteria 0 SEEN, Urine Mucus 0 SEEN 03/25/18 06:29: WBC 6.6, RBC 4.22, Hgb 12.7, Hct 39.1, MCV 92.7, MCH 30.1, MCHC 32.5, RDW 13.4, RDW Differential 44.3 H, Plt Count 261, MPV 9.9, Immature Gran % (Auto) 0.200, Neut % (Auto) 58.1, Lymph % (Auto) 30.6, [place] % (Auto) 8.3, Eos % (Auto) 2.3, Baso % (Auto) 0.5, Absolute Neuts (auto) 3.8, Absolute Lymphs (auto) 2.02, Total Counted Not Reportable 03/25/18 06:29: Sodium Pending, Potassium Pending, Chloride Pending, Carbon Dioxide Pending, Anion Gap Pending, BUN Pending, Creatinine Pending, Est GFR (MDRD) Af Amer Pending, Est GFR (MDRD) Non-Af Pending, BUN/Creatinine Ratio Pending, Glucose Pending, Calcium Pending, TSH Pending, Free T4 Pending 03/25/18 06:29: Hemoglobin A1c Pending Current Medications Albuterol Sulfate (Ventolin Aerosols) 2.5 mg INHALATION Q4H PRN PRN Alprazolam (Xanax) 0.5 mg PO QHS PRN PRN Reason: ANXIETY Amlodipine Besylate (Norvasc) 10 mg PO DAILY [facility] Atorvastatin Calcium (Lipitor) 10 mg PO QHS [facility] Last Admin: 03/24/18 23:17 Dose: 10 mg Ciprofloxacin (Cipro) 400 mg in 200 mls @ 200 mls/hr IV Q12 [facility] Last Admin: 03/25/18 00:27 Dose: 200 mls/hr Metronidazole (Flagyl) 500 mg in 100 mls @ 100 mls/hr IV Q8 [facility] Last Admin: 03/25/18 06:03 Dose: 100 mls/hr Levothyroxine Sodium (Synthroid) 50 mcg PO DAILY@0600 [facility] Last Admin: 03/25/18 06:04 Dose: 50 mcg Morphine Sulfate () 2 mg IV Q3H PRN PRN PRN Reason: SEVERE PAIN (6-10) Sodium Chloride () 5 - 30 ml IV UD PRN PRN Reason: SALINE FLUSH Tamsulosin HCl (Flomax) 0.4 mg PO DAILY@1730 [facility] Last Admin: 03/24/18 23:16 Dose: 0.4 mg Medical Necessity - Tobacco Use Smoking Status: Former smoker Assessment/Plan All Active Problems (Last Reviewed 12/20/17 @ 13:48 by Carissa Falcon) Lower gastrointestinal bleeding (Acute) Right distal ureteral calculus (Acute) Left sided colitis (Acute) Colitis (Acute) Atypical chest pain (Resolved) Patient is a 68-year-old lady who presented with lower abdominal pain associated with right straight blood per rectum CT of the abdomen on admission demonstrated features consistent with transverse and descending colon colitis. Admitted to regular nursing floor where patient has been managed 1. Acute colitis suspected to be infectious in origin imaging studies demonstrated features consistent with transverse and descending colon colitis consultation was placed to general surgery Dr. Keith in view of patient presenting with hematochezia plan is for endoscopic evaluation prior to patient being discharged 2. Acute lower GI bleed secondary to above 3. Hypokalemia: Corrected per 4. Squamous cell carcinoma involving the lung patient patient was treated with lobectomy has since remained in remission for 3 years. Patient is is followed by oncology Dr. Law as outpatient 5. Essential hypertension-blood pressure controlled, home medications continued with dose adjustment as needed 6. Right distal ureteric obstruction possible punctate stone with proximal right hydronephrosis consult was placed to urology on admission 7. Irritable bowel syndrome 8. History of fibromyalgia 9. Chronic pain syndrome 10. Hypothyroidism-patient is on levothyroxine home dose continued 11. Dyslipidemia-patient is on statin therapy, continued at home dose 12. Depression with anxiety 13. Previous history of H. pylori gastritis 14. DVT prophylaxis SCDs for now Active Medications Albuterol Sulfate (Ventolin Aerosols) 2.5 mg INHALATION Q4H PRN PRN Alprazolam (Xanax) 0.5 mg PO QHS PRN PRN Reason: ANXIETY Amlodipine Besylate (Norvasc) 10 mg PO DAILY [facility] Atorvastatin Calcium (Lipitor) 10 mg PO QHS [facility] Last Admin: 03/24/18 23:17 Dose: 10 mg Ciprofloxacin (Cipro) 400 mg in 200 mls @ 200 mls/hr IV Q12 [facility] Last Admin: 03/25/18 00:27 Dose: 200 mls/hr Metronidazole (Flagyl) 500 mg in 100 mls @ 100 mls/hr IV Q8 [facility] Last Admin: 03/25/18 06:03 Dose: 100 mls/hr Levothyroxine Sodium (Synthroid) 50 mcg PO DAILY@0600 [facility] Last Admin: 03/25/18 06:04 Dose: 50 mcg Morphine Sulfate () 2 mg IV Q3H PRN PRN PRN Reason: SEVERE PAIN (6-10/10) Sodium Chloride () 5 - 30 ml IV UD PRN PRN Reason: SALINE FLUSH Tamsulosin HCl (Flomax) 0.4 mg PO DAILY@1730 [facility] Last Admin: 03/24/18 23:16 Dose: 0.4 mg Clinical Impression(s) from Imaging Studies Abdomen/Pelvis CT 03/24/18 17:03 IMPRESSION: There is persistent right-sided hydronephrosis. There is a suggestion of a possible focus of punctate stone or other potentially intraluminal material infection or mass within the distal right ureter image #83 of the axial views. It is at this level that there is abrupt narrowing of the right ureter. Recommend consideration for follow-up urology study consideration for urogram. There is a decompressed mildly thick-walled appearance of the colon from the distal transverse colon to the descending colon. Findings are suspicious for mild colitis. Status post cholecystectomy. Status post hysterectomy. Diverticulosis no visualized diverticulitis. Electronically Signed: Elizabet Quinones MD at 19:17 EST Tel , Service support , Code Visit Inpatient E&M: 54538 Subs Hosp L3
--- NOTE | 2018-03-25 07:37 | PN_ITS ---
Patient Problems: Active and Suspected Problems (Last Reviewed 12/20/17 @ 13:48 by Carissa Falcon) Lower gastrointestinal bleeding (Acute) Right distal ureteral calculus (Acute) Left sided colitis (Acute) Colitis (Acute) Subjective: Patient is a 68-year-old lady who presented with lower abdominal pain associated with right straight blood per rectum CT of the abdomen on admission demonstrated features consistent with transverse and descending colon colitis. Admitted to regular nursing floor where patient has been managed Objective: GENERAL: cooperative HEENT: Atraumatic; moist oral mucosa EYES; Anicteric, Normal Conjunctiva NECK; supple, normal thyroid, no distended JVD. RESPIRATORY: Diminished to auscultation bilaterally, CARDIOVASCULAR: Regular S1 S2, no audible murmurs GI: soft, non-tender, normoactive bowel sounds, : No Renal angle tenderness; EXTREMITIES: No edema, no clubbing, no cyanosis. MUSCULOSKELETAL: No Joint Tenderness; no muscle waisting NEURO: Awake; no lateralizing signs. SKIN: No Rash PSYCH; Normal affect Vitals/I&O's: Vital Signs Temp Pulse Resp BP Pulse Ox 97.6 F L 75 18 150/68 H 97 03/25/18 06:00 03/25/18 06:00 03/25/18 06:00 03/25/18 06:00 03/25/18 06:00 Oxygen Delivery Method Room Air Weight: 66.451 kg Body Mass Index (BMI) 27.6 Intake and Output for Last 24 Hours 03/23/18 03/24/18 03/25/18 23:59 23:59 23:59 Intake Total 1400 / 1400 Balance 1400 / 1400 Microbiology Past 72 Hours 03/24/18 17:00 Stool Stool Occult Blood ([place]) - Final Occult Blood Positive Laboratory Results 03/24/18 17:00: WBC 9.2, RBC 4.70, Hgb 14.4, Hct 43.3, MCV 92.1, MCH 30.6, MCHC 33.3, RDW 13.4, RDW Differential 45.0 H, Plt Count 342, MPV 9.7, Immature Gran % (Auto) 0.100, Neut % (Auto) 47.3, Lymph % (Auto) 41.2 H, [place] % (Auto) 9.5, Eos % (Auto) 1.6, Baso % (Auto) 0.3, Absolute Neuts (auto) 4.3, Absolute Lymphs (auto) 3.79, Total Counted Not Reportable 03/24/18 17:00: Sodium 140, Potassium 3.4 L, Chloride 106, Carbon Dioxide 24.0, Anion Gap 10, BUN 12, Creatinine 0.97, Estim Creat Clear Calc 41.30, Est GFR (MDRD) Af Amer 73, Est GFR (MDRD) Non-Af 60, BUN/Creatinine Ratio 12.3, Glucose 188 H, Calcium 9.0, Total Bilirubin 0.30, AST 23, ALT 34, Alkaline Phosphatase 94, Total Protein 8.2, Albumin 4.1, Globulin 4.1, Albumin/Globulin Ratio 1.0, Lipase 170 03/24/18 17:54: Urine Color Yellow, Urine Clarity Clear, Urine pH 6.5, Ur Specific [place] 1.010, Urine Protein Negative, Urine Glucose (UA) Normal, Urine Ketones Negative, Urine Occult Blood Negative, Urine Nitrite Negative, Urine Bilirubin Negative, Urine Urobilinogen Normal, Ur Leukocyte Esterase Negative, Urine RBC 0 SEEN, Urine WBC 0 SEEN, Ur Squamous Epith Cells 0 SEEN, Urine Bacteria 0 SEEN, Urine Mucus 0 SEEN 03/25/18 06:29: WBC 6.6, RBC 4.22, Hgb 12.7, Hct 39.1, MCV 92.7, MCH 30.1, MCHC 32.5, RDW 13.4, RDW Differential 44.3 H, Plt Count 261, MPV 9.9, Immature Gran % (Auto) 0.200, Neut % (Auto) 58.1, Lymph % (Auto) 30.6, [place] % (Auto) 8.3, Eos % (Auto) 2.3, Baso % (Auto) 0.5, Absolute Neuts (auto) 3.8, Absolute Lymphs (auto) 2.02, Total Counted Not Reportable 03/25/18 06:29: Sodium Pending, Potassium Pending, Chloride Pending, Carbon Dioxide Pending, Anion Gap Pending, BUN Pending, Creatinine Pending, Est GFR (MDRD) Af Amer Pending, Est GFR (MDRD) Non-Af Pending, BUN/Creatinine Ratio Pending, Glucose Pending, Calcium Pending, TSH Pending, Free T4 Pending 03/25/18 06:29: Hemoglobin A1c Pending Current Medications Albuterol Sulfate (Ventolin Aerosols) 2.5 mg INHALATION Q4H PRN PRN Alprazolam (Xanax) 0.5 mg PO QHS PRN PRN Reason: ANXIETY Amlodipine Besylate (Norvasc) 10 mg PO DAILY [facility] Atorvastatin Calcium (Lipitor) 10 mg PO QHS [facility] Last Admin: 03/24/18 23:17 Dose: 10 mg Ciprofloxacin (Cipro) 400 mg in 200 mls @ 200 mls/hr IV Q12 [facility] Last Admin: 03/25/18 00:27 Dose: 200 mls/hr Metronidazole (Flagyl) 500 mg in 100 mls @ 100 mls/hr IV Q8 [facility] Last Admin: 03/25/18 06:03 Dose: 100 mls/hr Levothyroxine Sodium (Synthroid) 50 mcg PO DAILY@0600 [facility] Last Admin: 03/25/18 06:04 Dose: 50 mcg Morphine Sulfate () 2 mg IV Q3H PRN PRN PRN Reason: SEVERE PAIN (6-10) Sodium Chloride () 5 - 30 ml IV UD PRN PRN Reason: SALINE FLUSH Tamsulosin HCl (Flomax) 0.4 mg PO DAILY@1730 [facility] Last Admin: 03/24/18 23:16 Dose: 0.4 mg Medical Necessity - Tobacco Use Smoking Status: Former smoker Assessment/Plan All Active Problems (Last Reviewed 12/20/17 @ 13:48 by Carissa Falcon) Lower gastrointestinal bleeding (Acute) Right distal ureteral calculus (Acute) Left sided colitis (Acute) Colitis (Acute) Atypical chest pain (Resolved) Patient is a 68-year-old lady who presented with lower abdominal pain associated with right straight blood per rectum CT of the abdomen on admission demonstrated features consistent with transverse and descending colon colitis. Admitted to regular nursing floor where patient has been managed 1. Acute colitis suspected to be infectious in origin imaging studies demonstrated features consistent with transverse and descending colon colitis consultation was placed to general surgery Dr. Keith in view of patient presenting with hematochezia plan is for endoscopic evaluation prior to patient being discharged 2. Acute lower GI bleed secondary to above 3. Hypokalemia: Corrected per 4. Squamous cell carcinoma involving the lung patient patient was treated with lobectomy has since remained in remission for 3 years. Patient is is followed by oncology Dr. Law as outpatient 5. Essential hypertension-blood pressure controlled, home medications continued with dose adjustment as needed 6. Right distal ureteric obstruction possible punctate stone with proximal right hydronephrosis consult was placed to urology on admission 7. Irritable bowel syndrome 8. History of fibromyalgia 9. Chronic pain syndrome 10. Hypothyroidism-patient is on levothyroxine home dose continued 11. Dyslipidemia-patient is on statin therapy, continued at home dose 12. Depression with anxiety 13. Previous history of H. pylori gastritis 14. DVT prophylaxis SCDs for now Active Medications Albuterol Sulfate (Ventolin Aerosols) 2.5 mg INHALATION Q4H PRN PRN Alprazolam (Xanax) 0.5 mg PO QHS PRN PRN Reason: ANXIETY Amlodipine Besylate (Norvasc) 10 mg PO DAILY [facility] Atorvastatin Calcium (Lipitor) 10 mg PO QHS [facility] Last Admin: 03/24/18 23:17 Dose: 10 mg Ciprofloxacin (Cipro) 400 mg in 200 mls @ 200 mls/hr IV Q12 [facility] Last Admin: 03/25/18 00:27 Dose: 200 mls/hr Metronidazole (Flagyl) 500 mg in 100 mls @ 100 mls/hr IV Q8 [facility] Last Admin: 03/25/18 06:03 Dose: 100 mls/hr Levothyroxine Sodium (Synthroid) 50 mcg PO DAILY@0600 [facility] Last Admin: 03/25/18 06:04 Dose: 50 mcg Morphine Sulfate () 2 mg IV Q3H PRN PRN PRN Reason: SEVERE PAIN (6-10/10) Sodium Chloride () 5 - 30 ml IV UD PRN PRN Reason: SALINE FLUSH Tamsulosin HCl (Flomax) 0.4 mg PO DAILY@1730 [facility] Last Admin: 03/24/18 23:16 Dose: 0.4 mg Clinical Impression(s) from Imaging Studies Abdomen/Pelvis CT 03/24/18 17:03 IMPRESSION: There is persistent right-sided hydronephrosis. There is a suggestion of a possible focus of punctate stone or other potentially intraluminal material infection or mass within the distal right ureter image #83 of the axial views. It is at this level that there is abrupt narrowing of the right ureter. Recommend consideration for follow-up urology study consideration for urogram. There is a decompressed mildly thick-walled appearance of the colon from the distal transverse colon to the descending colon. Findings are suspicious for mild colitis. Status post cholecystectomy. Status post hysterectomy. Diverticulosis no visualized diverticulitis. Electronically Signed: Elizabet Quinones MD at 19:17 EST Tel , Service support , Code Visit Inpatient E&M: [id number] Subs Hosp L3
[2018-03-25 07:47] LABS: Anion Gap 8 (5-15); BUN 8 mg/dL (7-18); BUN/Creat Ratio 13.6 RATIO (10-20); Chloride 110 mmol/L (98-107); Creatinine, Serum 0.59 mg/dL (0.55-1.02); EST Glomerular Filtration Rate 107 mL/min (>60); Est Glom Filt Rate - Afr Amer 130 mL/min (>60); Estimated Creatinine Clearance 40.07 ml/min; Glucose 97 mg/dL (74-106); Potassium 3.4 mmol/L (3.5-5.1); Sodium Level 142 mmol/L (136-145); T4 Free Direct 1.06 ng/dL (0.76-1.46); Thyroid Stim Hormone (TSH) 3.66 uIU/mL (0.358-3.74)
--- NOTE | 2018-03-25 09:12 | CON.PCM_ITS ---
Reason for Consult Date of Consultation: 03/25/18 Reason for Consultation: hematochezia History of Present Illness: The patient is a 68 year old F who presents with a complaint of abdominal pain and hematochezia. The patient noted onset of abdominal cramping one half days previously and then noticed bloody diarrhea. She denied dizziness or other diffuse complaints. She presented emergency department. She was noted to have a normal white blood cell count. Digital exam was positive for occult blood. The patient has not had enough stool since presentation the hospital to send for cultures. CT scan of the abdomen and pelvis was obtained which demonstrated transverse colon to descending colon thickening consistent with colitis. This did not seem to be consistent with arterial occlusive colitis. One month previously, the patient had epigastric symptoms evaluated by her primary care provider. She had a stool test she recalls for H. pylori which was positive and treated with antibiotics. She completed those antibiotics at least 3 weeks previously. She notes no other recent antibiotic use. She notes no unusual travel or unusual foods or other people at home with similar illnesses. She does note a prior history again of epigastric complaints. She has never had previous upper endoscopy. She carries a diagnosis of irritable bowel syndrome and fibromyalgia. Interestingly she also has a right sided hydronephrosis on CT scan with a suspicion for a renal stone but is not complaining of right-sided symptoms. Past Medical History Past Medical History (Chronic Problems): Chronic Problems (Last Reviewed 12/20/17 @ 13:48 by Carissa Falcon) Fibromyalgia (Chronic) IBS (irritable bowel syndrome) (Chronic) Thoracic neuritis (Chronic) Segmental and somatic dysfunction of lumbar region (Chronic) Segmental and somatic dysfunction of thoracic region (Chronic) Thoracic back pain (Chronic) Non-small cell lung cancer (NSCLC) (Chronic) Acquired hypothyroidism (Chronic) Benign essential HTN (Chronic) Dizziness (Chronic) Hypertriglyceridemia (Chronic) Odynophagia (Chronic) Medical History: Medical History (Last Reviewed 12/20/17 @ 13:48 by Carissa Falcon) Fibromyalgia (Chronic) M79.7 IBS (irritable bowel syndrome) (Chronic) K58.9 Allergies doxycycline Allergy (Verified 03/24/18 16:44) Itching cephalexin Adverse Reaction (Verified 03/24/18 16:44) Other citalopram Adverse Reaction (Verified 03/24/18 16:44) Other metoclopramide [From Reglan] Adverse Reaction (Verified 03/24/18 16:44) Other morphine Adverse Reaction (Verified 03/24/18 16:44) Low blood pressure pregabalin Adverse Reaction (Verified 03/24/18 16:44) Other Home Medications: Ambulatory Orders Medication Instructions Recorded ALPRAZolam [Xanax] 0.5 mg PO QHS PRN 02/13/15 Felodipine [Plendil] 10 mg PO DAILY 02/13/15 Levothyroxine [Synthroid] 50 mcg PO DAILY 02/13/15 Atorvastatin Calcium [Lipitor] 10 mg PO QHS 08/17/17 Albuterol Sulfate [Ventolin Hfa] 1 - 2 puff INHALATION PRN PRN 03/24/18 Ergocalciferol (Vitamin D2) 50,000 unit PO QMONTH 03/24/18 [Drisdol] Ibuprofen/Diphenhydramine Cit 2 tab PO QHS 03/24/18 [Advil Pm Caplet] Surgical History: Surgical History (Last Reviewed 12/20/17 @ 13:48 by Carissa Falcon) H/O cataract extraction Z98.49 bilateral S/P appendectomy Z90.49 S/P bilateral foot surgery Z98.890 S/P breast biopsy, bilateral Z98.890 with clip in left breast S/P cholecystectomy Z90.49 S/P partial lobectomy of lung Z90.2 left due to lung cancer S/P removal of ovarian cyst Z98.890, Z87.42 Surgical History: appendectomy, cholecystectomy, hysterectomy Smoking Status: Former smoker - *Family History Paternal Family History: Family History (Last Reviewed 12/20/17 @ 13:48 by Carissa Falcon) Mother Diabetes Lung cancer CHF (congestive heart failure) Hypertension Father CHF (congestive heart failure) Hypertension Brother Hypertension Sister Hypertension Diabetes Aunt Breast cancer Other Heart disease History Items: No pertinent history Review of Systems Constitutional: Denies: Chills, Fever, Weight Change HEENT: Denies: Head Aches, Sinus Congestion, Sinus Drainage Cardiovascular: Denies: Chest Pain, Palpitations Respiratory: Denies: Cough, Shortness of breath at rest, Sputum production Gastrointestinal: Reports: Abdominal Pain, Hematochezia. Denies: Nausea, Vomiting Genitourinary: Denies: Dysuria Musculoskeletal: Denies: Joint Pain, Joint Tenderness Skin: Denies: Rash, Wounds Neurological: Denies: Numbness, Tingling, Focal weakness Psychiatric: Denies: Anxiety, Depression, Homicidal Ideations, Suicidal Ideations Hematologic/ Lymphatic: Denies: Easy Bruising, Easy Bleeding Patient Problems: Active and Suspected Problems (Last Reviewed 12/20/17 @ 13:48 by Carissa Falcon) Lower gastrointestinal bleeding (Acute) Right distal ureteral calculus (Acute) Left sided colitis (Acute) Colitis (Acute) - Physical Exam General: Alert, Oriented x3, Cooperative HEENT: Atraumatic, PERRLA, EOMI, Normocephalic Neck: Supple, No JVD, Negative Carotid Bruits Lungs: Clear to auscultation, Normal air movement Cardiovascular: Regular rate, No murmurs Abdomen: Bowel Sounds Present, Soft, Tender - in the epigastrium to the left side-mild, no peritoneal signs Extremities: No edema, Capillary Refill Less than 3 Seconds Skin: No rashes, No breakdown Musculoskeletal: No Tenderness to Palpation of Joints or Extremities Neurological: Cranial nerves II-XII grossly intact Psych/Mental Status: Normal Affect, Appropriate Vital Signs Temp Pulse Resp BP Pulse Ox 97.6 F L 75 18 150/68 H 97 03/25/18 06:00 03/25/18 06:00 03/25/18 06:00 03/25/18 06:00 03/25/18 06:00 Oxygen Delivery Method Room Air Weight: 66.451 kg Body Mass Index (BMI) 27.6 Intake and Output for Last 24 Hours 03/23/18 03/24/18 03/25/18 23:59 23:59 23:59 Intake Total 1400 / 1400 Balance 1400 / 1400 Microbiology Past 72 Hours 03/24/18 17:00 Stool Occult Blood ([place]) - Final Stool Occult Blood Positive Laboratory Tests Past 24 Hrs 03/24/18 03/24/18 03/24/18 17:00 17:00 17:54 WBC 9.2 RBC 4.70 Hgb 14.4 Hct 43.3 MCV 92.1 MCH 30.6 MCHC 33.3 RDW 13.4 RDW Differential 45.0 H Plt Count 342 MPV 9.7 Immature Gran % (Auto) 0.100 Neut % (Auto) 47.3 Lymph % (Auto) 41.2 H [place] % (Auto) 9.5 Eos % (Auto) 1.6 Baso % (Auto) 0.3 Absolute Neuts (auto) 4.3 Absolute Lymphs (auto) 3.79 Total Counted Not Reportable Sodium 140 Potassium 3.4 L Chloride 106 Carbon Dioxide 24.0 Anion Gap 10 BUN 12 Creatinine 0.97 Estim Creat Clear Calc 41.30 Est GFR (MDRD) Af Amer 73 Est GFR (MDRD) Non-Af 60 BUN/Creatinine Ratio 12.3 Glucose 188 H Hemoglobin A1c Calcium 9.0 Total Bilirubin 0.30 AST 23 ALT 34 Alkaline Phosphatase 94 Total Protein 8.2 Albumin 4.1 Globulin 4.1 Albumin/Globulin Ratio 1.0 Lipase 170 TSH Free T4 Urine Color Yellow Urine Clarity Clear Urine pH 6.5 Ur Specific [place] 1.010 Urine Protein Negative Urine Glucose (UA) Normal Urine Ketones Negative Urine Occult Blood Negative Urine Nitrite Negative Urine Bilirubin Negative Urine Urobilinogen Normal Ur Leukocyte Esterase Negative Urine RBC 0 SEEN Urine WBC 0 SEEN Ur Squamous Epith Cells 0 SEEN Urine Bacteria 0 SEEN Urine Mucus 0 SEEN 03/25/18 03/25/18 03/25/18 06:29 06:29 06:29 WBC 6.6 RBC 4.22 Hgb 12.7 Hct 39.1 MCV 92.7 MCH 30.1 MCHC 32.5 RDW 13.4 RDW Differential 44.3 H Plt Count 261 MPV 9.9 Immature Gran % (Auto) 0.200 Neut % (Auto) 58.1 Lymph % (Auto) 30.6 [place] % (Auto) 8.3 Eos % (Auto) 2.3 Baso % (Auto) 0.5 Absolute Neuts (auto) 3.8 Absolute Lymphs (auto) 2.02 Total Counted Not Reportable Sodium 142 Potassium 3.4 L Chloride 110 H Carbon Dioxide 24.0 Anion Gap 8 BUN 8 Creatinine 0.59 Estim Creat Clear Calc 40.07 Est GFR (MDRD) Af Amer 130 Est GFR (MDRD) Non-Af 107 BUN/Creatinine Ratio 13.6 Glucose 97 Hemoglobin A1c 6.0 Calcium 8.0 L Total Bilirubin AST ALT Alkaline Phosphatase Total Protein Albumin Globulin Albumin/Globulin Ratio Lipase TSH 3.66 Free T4 1.06 Urine Color Urine Clarity Urine pH Ur Specific [place] Urine Protein Urine Glucose (UA) Urine Ketones Urine Occult Blood Urine Nitrite Urine Bilirubin Urine Urobilinogen Ur Leukocyte Esterase Urine RBC Urine WBC Ur Squamous Epith Cells Urine Bacteria Urine Mucus Assessment/Plan All Active Problems (Last Reviewed 12/20/17 @ 13:48 by Carissa Falcon) Lower gastrointestinal bleeding (Acute) Right distal ureteral calculus (Acute) Left sided colitis (Acute) Colitis (Acute) Atypical chest pain (Resolved) colitis, hematochezia, epigastric symptoms I would like to see stool cultures-C. difficile, enteric pathogens, fecal WBCs and over and parasites if the patient has a bowel movement. The patient feels hungry. I am comfortable with clear liquids for a lower residue diet currently to provide bowel rest given the colitis of unknown etiology. If the patient remains in the hospital I would plan for bowel prep Tuesday with upper and lower endoscopy on Tuesday. The patient says the risks, benefits, possible complications alternatives to endoscopy and consents to the planned procedures.
[2018-03-25] MEDS: amLODIPine 10 MG Tablet PO (10:45)
[2018-03-25 10:46] VITALS: BP 126/73; PULSE 67; RESP 18; TEMP 36.7; O2SAT 97
--- NOTE | 2018-03-25 11:56 | NURSING ---
pt c/o feeling sick from not eating states her blood glucose drops at home if she doesn't eat and she feels sick. OT checked after primary RN informed. meal tray also came after OT checked. pt denies further needs. call light alessandro abdalla. Primary RN updated.
[2018-03-25 12:01] LABS: Bedside Glucose 103 mg/dL (70-110)
--- NOTE | 2018-03-25 12:01 | CM.UR ---
See attached RN assmt. Met face to face with patient and daughter. Denies any anticipated needs at this time. Patient is aware of diverticulosis. States she used to take a fiber supplement but had stopped. Reinforced dietary considerations to follow for dx of diverticulosis. States the nurse did obtain a stool specimen. Will await specimen results. Plan for scope on Tuesday. Plan: home, no needs anticipated. Norma Chowdhury RN, CCM.
[2018-03-25] MEDS: Tamsulosin HCl 0.4 MG Capsule PO (13:49)
[2018-03-25 15:25] VITALS: BP 138/70; PULSE 70; RESP 18; TEMP 36.7; O2SAT 98
[2018-03-25 20:33] VITALS: BP 154/72; PULSE 72; RESP 18; TEMP 36.5; O2SAT 98
[2018-03-25] MEDS: Atorvastatin Calcium 10 MG Tablet PO (21:48)
[2018-03-25] MEDS: Sodium Chloride 0.65% 1 SPRAY SPRAY.BTL 2 SPRAY NASAL (22:57)
[2018-03-26] MEDS: Mag Hydrox/Al Hydrox/Simeth 30 ML UDC PO (01:00)
[2018-03-26 02:30] VITALS: BP 155/80; PULSE 72; RESP 16; TEMP 36.9; O2SAT 97
[2018-03-26] MEDS: Levothyroxine 50 MCG Tablet PO (06:30)
[2018-03-26 06:51] LABS: Hematocrit 40.3 % (37-47); Hemoglobin 12.9 g/dl (12.0-15.0); Mean Corpuscular Hgb 29.7 pg (27.0-32.0); Mean Corpuscular Volume 92.6 fL (81-99); Mean Platelet Vol. 9.8 fl (6.2-12.0); Platelet Count 240 K/mm3 (150-450); RBC Distribution Width CV 13.5 % (11.6-14.6); RBC Distribution Width SD 46.2 fl (35.1-43.9); Red Blood Count 4.35 M/mm3 (4.2-5.4)
[2018-03-26 07:04] LABS: Scan Indicated on CBC? Y/N NO
[2018-03-26 07:13] LABS: Anion Gap 10 (5-15); BUN 6 mg/dL (7-18); BUN/Creat Ratio 10.7 RATIO (10-20); Calcium,Total 8.5 mg/dL (8.5-10.1); Chloride 110 mmol/L (98-107); Creatinine, Serum 0.56 mg/dL (0.55-1.02); EST Glomerular Filtration Rate 114 mL/min (>60); Est Glom Filt Rate - Afr Amer 138 mL/min (>60); Estimated Creatinine Clearance 40.07 ml/min; Glucose 103 mg/dL (74-106); Magnesium 2.2 mg/dL (1.6-2.6); Potassium 3.5 mmol/L (3.5-5.1); Sodium Level 144 mmol/L (136-145)
[2018-03-26 08:08] VITALS: BP 149/63; PULSE 75; RESP 18; TEMP 36.6; O2SAT 96
--- NOTE | 2018-03-26 08:34 | PN_ITS ---
Patient Problems: Active and Suspected Problems (Last Reviewed 12/20/17 @ 13:48 by Carissa Falcon) Lower gastrointestinal bleeding (Acute) Right distal ureteral calculus (Acute) Left sided colitis (Acute) Colitis (Acute) Subjective: Patient seen still complains of abdominal cramping. Patient is scheduled to undergo endoscopic evaluation with both EGD and colonoscopy on 03/27/2018. Preparation to start this evening. Objective: GENERAL: cooperative HEENT: Atraumatic; moist oral mucosa EYES; Anicteric, Normal Conjunctiva NECK; supple, normal thyroid, no distended JVD. RESPIRATORY: Diminished to auscultation bilaterally, CARDIOVASCULAR: Regular S1 S2, no audible murmurs GI: soft, non-tender, normoactive bowel sounds, : No Renal angle tenderness; EXTREMITIES: No edema, no clubbing, no cyanosis. MUSCULOSKELETAL: No Joint Tenderness; no muscle waisting NEURO: Awake; no lateralizing signs. SKIN: No Rash PSYCH; Normal affect Vitals/I&O's: Vital Signs Temp Pulse Resp BP Pulse Ox 97.8 F 75 18 149/63 H 96 03/26/18 08:08 03/26/18 08:08 03/26/18 08:08 03/26/18 08:08 03/26/18 08:08 Oxygen Delivery Method Room Air Weight: 66.45 kg Body Mass Index (BMI) 27.6 Intake and Output for Last 24 Hours 03/24/18 03/25/18 03/26/18 23:59 23:59 23:59 Intake Total 3205 / 3205 537 / 537 Output Total 200 / 200 Balance 3005 / 3005 537 / 537 Microbiology Past 72 Hours 03/25/18 12:30 Stool Enteric Bacteriology - Final 03/25/18 12:30 Stool C. difficile DNA Amplification - Final 03/25/18 12:30 Stool Stool Lactoferrin - Final 03/24/18 17:00 Stool Stool Occult Blood (SANTIAGO) - Final Occult Blood Positive Laboratory Results 03/25/18 11:56: POC Glucose 103 03/26/18 05:34: WBC 7.0, RBC 4.35, Hgb 12.9, Hct 40.3, MCV 92.6, MCH 29.7, MCHC 32.0, RDW 13.5, RDW Differential 46.2 H, Plt Count 240, MPV 9.8 03/26/18 05:34: Sodium 144, Potassium 3.5, Chloride 110 H, Carbon Dioxide 24.0, Anion Gap 10, BUN 6 L, Creatinine 0.56, Estim Creat Clear Calc 40.07, Est GFR (MDRD) Af Amer 138, Est GFR (MDRD) Non-Af 114, BUN/Creatinine Ratio 10.7, Gl ucose 103, Calcium 8.5, Magnesium 2.2 Current Medications Al Hydroxide/Mg Hydroxide (Mylanta Ii) 30 ml PO Q4H PRN PRN PRN Reason: BELCHING Last Admin: 03/26/18 01:00 Dose: 30 ml Albuterol Sulfate (Ventolin Aerosols) 2.5 mg INHALATION Q4H PRN PRN Alprazolam (Xanax) 0.5 mg PO QHS PRN PRN Reason: ANXIETY Amlodipine Besylate (Norvasc) 10 mg PO DAILY [facility] Last Admin: 03/25/18 10:45 Dose: 10 mg Atorvastatin Calcium (Lipitor) 10 mg PO QHS [facility] Last Admin: 03/25/18 21:48 Dose: 10 mg Ciprofloxacin (Cipro) 400 mg in 200 mls @ 200 mls/hr IV Q12 [facility] Last Admin: 03/25/18 21:48 Dose: 200 mls/hr Metronidazole (Flagyl) 500 mg in 100 mls @ 100 mls/hr IV Q8 [facility] Last Admin: 03/26/18 06:30 Dose: 100 mls/hr Potassium Chloride/Dextrose/Sod Cl (Kcl 20meq In D5.45ns 1000ml) 1,000 mls @ 100 mls/hr IV .Q10H [facility] Levothyroxine Sodium (Synthroid) 50 mcg PO DAILY@0600 [facility] Last Admin: 03/26/18 06:30 Dose: 50 mcg Morphine Sulfate () 2 mg IV Q3H PRN PRN PRN Reason: SEVERE PAIN (-02/22) Potassium Chloride (K-Dur) 20 meq PO BIDCM [facility] Sodium Chloride () 5 - 30 ml IV UD PRN PRN Reason: SALINE FLUSH Sodium Chloride ([place] Nasal Terrell) 2 spray NASAL Q4H PRN PRN Reason: NASAL DRYNESS Last Admin: 03/25/18 22:57 Dose: 2 spray Tamsulosin HCl (Flomax) 0.4 mg PO DAILY@1730 [facility] Last Admin: 03/25/18 13:49 Dose: 0.4 mg Medical Necessity - Tobacco Use Smoking Status: Former smoker Assessment/Plan All Active Problems (Last Reviewed 12/20/17 @ 13:48 by Carissa Falcon) Lower gastrointestinal bleeding (Acute) Right distal ureteral calculus (Acute) Left sided colitis (Acute) Colitis (Acute) Atypical chest pain (Resolved) Patient is a 68-year-old lady who presented with lower abdominal pain associated with right straight blood per rectum CT of the abdomen on admission demonstrated features consistent with transverse and descending colon colitis. Admitted to regular nursing floor where patient has been managed 1. Acute colitis suspected to be infectious in origin imaging studies demonstrated features consistent with transverse and descending colon colitis consultation was placed to general surgery Dr. Keith in view of patient presenting with hematochezia plan is for endoscopic evaluation prior to patient being discharged she had endoscopic evaluation scheduled 03/27/2018 2. Acute lower GI bleed secondary to above 3. Hypokalemia: Corrected per protocol; K 3.5 on the morning of 03/26/2018 4. Squamous cell carcinoma involving the lung patient patient was treated with lobectomy has since remained in remission for 3 years. Patient is is followed by oncology Dr. Canas as outpatient 5. Essential hypertension-blood pressure controlled, home medications continued with dose adjustment as needed 6. Right distal ureteric obstruction possible punctate stone with proximal right hydronephrosis consult was placed to urology on admission 7. Irritable bowel syndrome 8. History of fibromyalgia 9. Chronic pain syndrome 10. Hypothyroidism-patient is on levothyroxine home dose continued 11. Dyslipidemia-patient is on statin therapy, continued at home dose 12. Depression with anxiety 13. Previous history of H. pylori gastritis 14. DVT prophylaxis SCDs for now Active Medications Al Hydroxide/Mg Hydroxide (Mylanta Ii) 30 ml PO Q4H PRN PRN PRN Reason: BELCHING Last Admin: 03/26/18 01:00 Dose: 30 ml Albuterol Sulfate (Ventolin Aerosols) 2.5 mg INHALATION Q4H PRN PRN Alprazolam (Xanax) 0.5 mg PO QHS PRN PRN Reason: ANXIETY Amlodipine Besylate (Norvasc) 10 mg PO DAILY [facility] Last Admin: 03/25/18 10:45 Dose: 10 mg Atorvastatin Calcium (Lipitor) 10 mg PO QHS [facility] Last Admin: 03/25/18 21:48 Dose: 10 mg Ciprofloxacin (Cipro) 400 mg in 200 mls @ 200 mls/hr IV Q12 [facility] Last Admin: 03/25/18 21:48 Dose: 200 mls/hr Metronidazole (Flagyl) 500 mg in 100 mls @ 100 mls/hr IV Q8 [facility] Last Admin: 03/26/18 06:30 Dose: 100 mls/hr Potassium Chloride/Dextrose/Sod Cl (Kcl 20meq In D5.45ns 1000ml) 1,000 mls @ 100 mls/hr IV .Q10H [facility] Levothyroxine Sodium (Synthroid) 50 mcg PO DAILY@0600 [facility] Last Admin: 03/26/18 06:30 Dose: 50 mcg Morphine Sulfate () 2 mg IV Q3H PRN PRN PRN Reason: SEVERE PAIN (-02/22) Potassium Chloride (K-Dur) 20 meq PO BIDCM [facility] Sodium Chloride () 5 - 30 ml IV UD PRN PRN Reason: SALINE FLUSH Sodium Chloride ([place] Nasal Terrell) 2 spray NASAL Q4H PRN PRN Reason: NASAL DRYNESS Last Admin: 03/25/18 22:57 Dose: 2 spray Tamsulosin HCl (Flomax) 0.4 mg PO DAILY@1730 [facility] Last Admin: 03/25/18 13:49 Dose: 0.4 mg Code Visit Inpatient E&M: 64041 Subs Hosp L2
[2018-03-26] MEDS: amLODIPine 10 MG Tablet PO (09:03)
[2018-03-26] MEDS: Ciprofloxacin 400 MG/200 ML BAG 200 MG IV ×2 (09:03→22:47)
[2018-03-26] MEDS: LORazepam 0.5 MG Tablet PO (09:03)
--- NOTE | 2018-03-26 09:56 | PN.SURG_ITS ---
Patient Problems: Active and Suspected Problems (Last Reviewed 12/20/17 @ 13:48 by Carissa Falcon) Lower gastrointestinal bleeding (Acute) Right distal ureteral calculus (Acute) Left sided colitis (Acute) Colitis (Acute) Subjective: patient still complaining of cramping and bloating,patient has anxiety concerning possibility of malignancy given her abdominal symptoms and personal history of malignancy - Physical Exam General: Alert, Oriented x3 Lungs: Clear to auscultation, Normal air movement Cardiovascular: Regular rate, Regular Rhythm Abdomen: Bowel Sounds Present, Soft, Non Tender Vital Signs Temp Pulse Resp BP Pulse Ox 97.8 F 75 18 149/63 H 96 03/26/18 08:08 03/26/18 08:08 03/26/18 08:08 03/26/18 08:08 03/26/18 08:08 Oxygen Delivery Method Room Air Weight: 66.45 kg Body Mass Index (BMI) 27.6 Intake and Output for Last 24 Hours 03/24/18 03/25/18 03/26/18 23:59 23:59 23:59 Intake Total 3205 / 3205 537 / 537 Output Total 200 / 200 Balance 3005 / 3005 537 / 537 Microbiology Past 72 Hours 03/25/18 12:30 Enteric Bacteriology - Final Stool 03/25/18 12:30 C. difficile DNA Amplification - Final Stool 03/25/18 12:30 Stool Lactoferrin - Final Stool 03/24/18 17:00 Stool Occult Blood (SANTIAGO) - Final Stool Occult Blood Positive Laboratory Tests Past 24 Hrs 03/26/18 03/26/18 05:34 05:34 WBC 7.0 RBC 4.35 Hgb 12.9 Hct 40.3 MCV 92.6 MCH 29.7 MCHC 32.0 RDW 13.5 RDW Differential 46.2 H Plt Count 240 MPV 9.8 Sodium 144 Potassium 3.5 Chloride 110 H Carbon Dioxide 24.0 Anion Gap 10 BUN 6 L Creatinine 0.56 Estim Creat Clear Calc 40.07 Est GFR (MDRD) Af Amer 138 Est GFR (MDRD) Non-Af 114 BUN/Creatinine Ratio 10.7 Glucose 103 Calcium 8.5 Magnesium 2.2 POC Glucose 03/25/18 11:56 POC Glucose 103 Medical Necessity - Tobacco Use Smoking Status: Former smoker Assessment/Plan All Active Problems (Last Reviewed 12/20/17 @ 13:48 by Carissa Falcon) Lower gastrointestinal bleeding (Acute) Right distal ureteral calculus (Acute) Left sided colitis (Acute) Colitis (Acute) Atypical chest pain (Resolved) colitis, hematochezia, epigastric symptoms stool cultures negative fecal leukocytes positive. The patient feels hungry but noted bloating and discomfort with clear liquids. patient noted anxiety and overall continued GI symptoms overnight. The patient's anxiety is-given her history of lung cancer does she have intra- abdominal malignancy. I reassured her that I don't believe this is related all and not a malignant process in her abdomen. She seems somewhat relieved by that but still somewhat anxious area at this time, I'm uncertain whether her abdominal symptoms are now anxiety or continued slow bowel transit. I gave her Ativan to see if this improved her overall symptoms and renewed her Xanax for overnight. If her abdominal symptoms improve throughout the day, will try a bowel prep later tonight. Otherwise if she still having bloating with liquids I don't feel she will tolerate an oral prep and we'll postpone endoscopy for now. Patient states she had a left complete pneumonectomy. Review of previous studies seem more consistent with a lower lobectomy. Lung exam is clear If the patient remains in the hospital I would plan for bowel prep Tuesday with upper and lower endoscopy on Tuesday. The patient says the risks, benefits, possible complications alternatives to endoscopy and consents to the planned procedures.
[2018-03-26] MEDS: Tamsulosin HCl 0.4 MG Capsule PO (14:22)
--- NOTE | 2018-03-26 15:48 | NURSING ---
MIKE BRAGG HAS STILL NOT ARRIVED FROM PHARMACY TO START PT PREP
[2018-03-26] MEDS: Electrolyte Solution/Peg's 4000 ML PO (16:36)
[2018-03-26 20:09] VITALS: BP 149/72; PULSE 74; RESP 16; TEMP 36.4; O2SAT 97
[2018-03-26] MEDS: Atorvastatin Calcium 10 MG Tablet PO (21:38)
[2018-03-26] MEDS: ALPRAZolam 0.5 MG Tablet PO (22:46)
[2018-03-27] VITALS (10 sets, daily range): BP systolic 118–138; BP diastolic 45–78; PULSE 65–80; RESP 14–18; TEMP 36.2–37.2; O2SAT 94–98
--- NOTE | 2018-03-27 | IMM_PTH ---
PATIENT: CARYN OCASIO LOC: MS3 U#:[id number] AGE/SX: 68/F ROOM: [facility] – [place] RE03/24/[address]: Dr. Courtney Rodgers MD : 1950 BED: 1 DIS: 03/28/2018 SPEC #: [id number] RECD: 03/29/18 07:53 STATUS: SAMIRA REQ #: [id number] JIMI: 03/27/18 00:[address]: Courtney Rodgers DEPT: IMMUNOHISTOCHEMISTRY RECD BY: Ryan Day ENTERED: 03/29/18 07:53 SP TYPE: IMMUNO OTHR DR: MD Dr. Carlos Alberto Aguirre MD Dr. Prakash Chand, MD Dr. Richard Guttman, MD Tissues: Gastric mucous membrane Procedures: H Pylori (initial) PHYSICIAN & INSTITUTION [place] [id number] SPECIMEN INFORMATION: Tissue Source: Distal esophagus Clinical Info: Epigastric symptoms, and left sided colitis Specimen Number: [id number] CPT code: 00935 METHODOLOGY: Deparaffinized sections of prefer/formalin-fixed tissue or PAP/DQ stained slides are incubated with monoclonal/polyclonal antibodies/oligonucleotide probes. Localization is made via biotin free immunoperoxidase method. Appropriate controls are performed and reacted as expected. Results on target cell population are indicated in the following table: RESULTS: ANTIBODY / CLONE RESULT H Pylori (polyclonal) negative These tests were developed and their performance characteristics determined by [facility]. They may not have been cleared or approved by the U.S. Food and Drug Administration. The FDA has determined that such clearance or approval is not necessary. INTERPRETATION: Distal esophagus: Gastric mucosa fragment is negative for Helicobacter pylori organisms. AM:mary beth
[2018-03-27] MEDS: Levothyroxine 50 MCG Tablet PO (05:16)
[2018-03-27 05:34] LABS: Hematocrit 37.9 % (37-47); Hemoglobin 12.6 g/dl (12.0-15.0); Mean Corp Hgb Conc 33.2 g/gl (32-36); Mean Corpuscular Hgb 30.7 pg (27.0-32.0); Mean Corpuscular Volume 92.2 fL (81-99); Mean Platelet Vol. 9.9 fl (6.2-12.0); Platelet Count 227 K/mm3 (150-450); RBC Distribution Width CV 13.2 % (11.6-14.6); RBC Distribution Width SD 43.9 fl (35.1-43.9); Red Blood Count 4.11 M/mm3 (4.2-5.4); White Blood Count 5.7 K/mm3 (4.4-11.0)
[2018-03-27 05:50] LABS: Anion Gap 7 (5-15); BUN 5 mg/dL (7-18); BUN/Creat Ratio 7.8 RATIO (10-20); Calcium,Total 8.3 mg/dL (8.5-10.1); Chloride 111 mmol/L (98-107); Creatinine, Serum 0.64 mg/dL (0.55-1.02); EST Glomerular Filtration Rate 98 mL/min (>60); Est Glom Filt Rate - Afr Amer 118 mL/min (>60); Estimated Creatinine Clearance 40.07 ml/min; Glucose 131 mg/dL (74-106); Potassium 3.4 mmol/L (3.5-5.1); Sodium Level 144 mmol/L (136-145)
[2018-03-27 06:05] LABS: Scan Indicated on CBC? Y/N NO
--- NOTE | 2018-03-27 08:41 | PN_ITS ---
Patient Problems: Active and Suspected Problems (Last Reviewed 12/20/17 @ 13:48 by Carissa Falcon) Lower gastrointestinal bleeding (Acute) Left sided colitis (Acute) Subjective: Chief complaint: Follow-up after admission for acute colitis of the distal transverse colon and descending colon as well as right-sided hydronephrosis. Patient seen and examined. No acute events overnight. This morning, she mentioned that her lower abdominal pain and left lower quadrant abdominal pain has improved. She denies any more hematochezia. Denied nausea or vomiting. She complains of mild left flank pain. Denies urinary symptoms. Denies fever or chills. Her vital signs stable, afebrile. - Physical Exam General: Alert, Oriented x3, Cooperative, No apparent distress HEENT: Atraumatic, PERRLA, EOMI, Normocephalic Oral: Moist Mucosa, No Gingival or Mucosal Lesions/ Ulcerations Neck: Supple, No JVD, Negative Carotid Bruits, Trachea Midline, Thyroid Normal Size and Texture Lungs: Clear to auscultation, No rhonchi, No wheeze, No rales, Diminished Cardiovascular: Regular rate, Regular Rhythm, Normal S1, Normal S2, PMI Normal Abdomen: Bowel Sounds Present, Soft, Non Tender, Non-Distended, No Hepato- splenomegaly Extremities: No clubbing, No cyanosis, No edema Skin: No rashes, No breakdown Lymphatic: No Cervical, Supraclavicular, or Inguinal Adenopathy Neurological: Cranial nerves II-XII grossly intact, Motor Exam 5/5 strength throughout Psych/Mental Status: Normal Affect, Appropriate, Alert and oriented to time, place, person, mood and affect Vital Signs Temp Pulse Resp BP Pulse Ox 98 F 70 16 130/74 H 96 03/27/18 07:58 03/27/18 08:02 03/27/18 08:02 03/27/18 07:58 03/27/18 08:02 Oxygen Delivery Method Room Air Weight: 146 lb 7.955 oz Body Mass Index (BMI) 27.6 Intake and Output for Last 24 Hours 03/25/18 03/26/18 03/27/18 23:59 23:59 23:59 Intake Total 3205 / 3205 4351 / 4351 870 / 870 Output Total 200 / 200 1600 / 1600 Balance 3005 / 3005 2751 / 2751 870 / 870 Microbiology Past 72 Hours 03/25/18 12:30 Enteric Bacteriology - Final Stool 03/25/18 12:30 C. difficile DNA Amplification - Final Stool 03/25/18 12:30 Stool Lactoferrin - Final Stool 03/24/18 17:00 Stool Occult Blood (SANTIAGO) - Final Stool Occult Blood Positive Laboratory Tests Past 24 Hrs 03/27/18 03/27/18 05:08 05:08 WBC 5.7 RBC 4.11 L Hgb 12.6 Hct 37.9 MCV 92.2 MCH 30.7 MCHC 33.2 RDW 13.2 RDW Differential 43.9 Plt Count 227 MPV 9.9 Sodium 144 Potassium 3.4 L Chloride 111 H Carbon Dioxide 26.0 Anion Gap 7 BUN 5 L Creatinine 0.64 Estim Creat Clear Calc 40.07 Est GFR (MDRD) Af Amer 118 Est GFR (MDRD) Non-Af 98 BUN/Creatinine Ratio 7.8 L Glucose 131 H Calcium 8.3 L Clinical Impression(s) from Imaging Studies Abdomen/Pelvis CT 03/24/18 17:03 IMPRESSION: There is persistent right-sided hydronephrosis. There is a suggestion of a possible focus of punctate stone or other potentially intraluminal material infection or mass within the distal right ureter image #83 of the axial views. It is at this level that there is abrupt narrowing of the right ureter. Recommend consideration for follow-up urology study consideration for urogram. There is a decompressed mildly thick-walled appearance of the colon from the distal transverse colon to the descending colon. Findings are suspicious for mild colitis. Status post cholecystectomy. Status post hysterectomy. Diverticulosis no visualized diverticulitis. Electronically Signed: Elizabet Quinones MD at 19:17 EST Tel , Service support , Medical Necessity - Tobacco Use Smoking Status: Former smoker Assessment/Plan All Active Problems (Last Reviewed 12/20/17 @ 13:48 by Carissa Falcon) Lower gastrointestinal bleeding (Acute) Left sided colitis (Acute) This is a 68 years old female patient presented to the emergency room because of lower abdominal pain and rectal bleeding, found to have findings consistent with acute colitis of the transverse and descending colon and also found to have right hydronephrosis on CT scan abdomen. #1 acute colitis of the distal transverse and descending colon: She is on IV ciprofloxacin and Flagyl. Her vital signs are stable, afebrile. Her symptoms improved. She has been afebrile, no leukocytosis. Stool for C. difficile was negative. Stool for enteric pathogen was negative as well. She was kept on n.p.o. because she is going for colonoscopy today. General surgery on the case. Plan to continue same treatment. #2 lower GI bleed: Secondary to above. Today, she denies any more hematochezia. Her hematocrit and hemoglobin are stable. Plan for colonoscopy and upper EGD today. #3 hypokalemia: She is on potassium replacement. Today's potassium is still 3.4, still low. Plan to increase K Dur to 40 mEq twice daily, repeat BMP tomorrow morning. #4 persistent right-sided hydronephrosis: CT scan abdomen and pelvis with contrast revealed persistent right-sided hydronephrosis, possible punctate stone or mass within the distal right ureter. Her kidney function is normal. Urinalysis revealed no evidence of acute cystitis. Urology was consulted, awaiting recommendations. #5 history of squamous cell carcinoma of the lung: Status post lobectomy, in remission. She has been following up with oncology as outpatient. #6 hypertension: Blood pressure stable, continue Norvasc. #7 hyperlipidemia: Continue statins. #6 irritable bowel syndrome: Stable, no acute issues. #9 hypothyroidism: Continue levothyroxine. #10 chronic pain syndrome/fibromyalgia: She is on IV morphine as needed for pain. #11 DVT prophylaxis: SCDs. This note was generated with [employer]ota[employer] dictation software. It may contain incorrect words, spelling, and punctuation that were not noted in checking the note before signing. Code Visit Inpatient E&M: 86448 Subs Hosp L2
[2018-03-27] MEDS: Ciprofloxacin 400 MG/200 ML BAG 200 MG IV ×2 (08:56→22:25)
[2018-03-27] MEDS: amLODIPine 10 MG Tablet PO (08:58)
--- NOTE | 2018-03-27 13:44 | NURSING ---
Pt off of floor for Upper/ lower scope @ this time
--- NOTE | 2018-03-27 14:00 | EGD_PTH ---
PATIENT: CARYN OCASIO LOC: MS3 U#:[id number] AGE/SX: 68/F [place]OM: [facility] [place]03/24/[address]: Dr. Courtney Rodgers MD : 1950 BED: 1 DIS: 03/28/2018 SPEC #: [id number] RECD: 03/27/18 15:12 STATUS: SAMIRA [place] #: [id number] JIMI: 03/27/18 14:[address]: Courtney Rodgers DEPT: SURGICAL PATHOLOGY RECD BY: Anuj Davis ENTERED: 03/28/18 10:16 SP TYPE: EGD BIOPSY OT DR: MD Dr. Carlos Alberto Aguirre MD Dr. Prakash Chand, MD Dr. Richard Guttman, MD Tissues: A - Jejunum, NOS B - Gastric mucous membrane C - Esophageal mucous membrane D - Esophageal mucous membrane E - Ileum, NOS F - COLON BIOPSY G - SPLENIC FLEXURE Procedures: Surgery Specimen Level IV HEADER OPERATION: Colonoscopy, EGD [place] [place] PRE-OP DIAGNOSIS: Epigastric symptoms, and left sided colitis TISSUE SUBMITTED: A. Jejunum biopsy, B. Antrum biopsy for H. Pylori, C. Distal esophagus biopsy, D. Mid esophagus biopsy, E. Biopsy of terminal ileum, F. Random colon biopsies, G. Splenic flexure biopsy MICROSCOPIC DIAGNOSIS A. Jejunum, biopsy: No pathologic diagnosis. B. Gastric antrum, biopsy: Rare benign glandular epithelium. C. Distal esophagus, biopsy: Focal changes of reflux. Gastroesophageal junction with mild chronic inflammation. D. Mid esophagus, biopsy: Benign fragments of superficial squamous mucosa. E. Terminal ileum, biopsy: No pathologic diagnosis. F. Random biopsy: No pathologic change. G. Splenic flexure, biopsy: No pathologic diagnosis. AM:shaun 03/29/18 COMMENT The results of immunohistochemistry for Helicobacter pylori will be reported separately ([id number]). B. The majority of the specimen appears to have been lost in processing. MICROSCOPIC DESCRIPTION Slides are reviewed. GROSS DESCRIPTION A. Received is one container labeled with the patient name and designated jejunum biopsy. The specimen consists of one irregular fragment of light marquez soft tissue that measures 0.3 x 0.3 x 0.1 cm. The specimen is totally submitted in one cassette. B. Received is one container labeled with the patient name and designated antrum biopsy for H. pylori. The specimen consists of one irregular fragment of light marquez soft tissue that measures 0.4 x 0.3 x 0.1 cm. The specimen is totally submitted in one cassette. C. Received is one container labeled with the patient name and designated distal esophagus biopsy. The specimen consists of two irregular fragments of light marquez soft tissue that in aggregate measure 0.6 x 0.3 x 0.1 cm. The specimen is totally submitted in one cassette. D. Received is one container labeled with the patient name and designated mid esophagus biopsy. The specimen consists of one irregular fragment of light marquez soft tissue that measures 0.4 x 0.3 x 0.1 cm. The specimen is totally submitted in one cassette. E. Received is one container labeled with the patient name and designated biopsy of terminal ileum. The specimen consists of multiple irregular fragments of light marquez soft tissue that in aggregate measure 1 x 0.3 x 0.1 cm. The specimen is totally submitted in one cassette. F. Received is one container labeled with the patient name and designated random biopsy. The specimen consists of two irregular fragments of light marquez soft tissue that measure in aggregate 0.6 x 0.3 x 0.1 cm. The specimen is totally submitted in one cassette. G. Received is one container labeled with the patient name and designated splenic flexure biopsy. The specimen consists of one irregular fragment of light marquez soft tissue that measures 0.6 x 0.2 x 0.1 cm. The specimen is totally submitted in one cassette. SJ:sp 03/28/18 TC: 3 CPT: 52446 x7
--- NOTE | 2018-03-27 14:54 | OP.ENDO_ITS ---
Patient Name: Kathy Smith Procedure Date: 03/27/2018 2:13 PM Date of : 1950 Age: 68 Procedure: Upper GI endoscopy Indications: Epigastric abdominal pain, Suspected esophageal reflux Providers: Willie Villagran MD Medicines: Monitored Anesthesia Care Patient Profile: This is a 68 year old female. Refer to note in patient chart for documentation of history and physical. Patient has symptoms. Complications: No immediate complications. Procedure: Pre-Anesthesia Assessment: - Prior to the procedure, a History and Physical was performed, and patient medications and allergies were reviewed. The patient is competent. The risks and benefits of the procedure and the sedation options and risks were discussed with the patient. All questions were answered and informed consent was obtained. Patient identification and proposed procedure were verified by the physician, the nurse and the audience coordinator in the procedure room. Mental Status Examination: alert and oriented. Airway Examination: normal oropharyngeal airway and neck mobility. Respiratory Examination: clear to auscultation. CV Examination: normal. Prophylactic Antibiotics: The patient does not require prophylactic antibiotics. Prior Anticoagulants: The patient has taken no previous anticoagulant or antiplatelet agents. ASA Grade Assessment: II - A patient with mild systemic disease. After reviewing the risks and benefits, the patient was deemed in satisfactory condition to undergo the procedure. The anesthesia plan was to use monitored anesthesia care (MAC). Immediately prior to administration of medications, the patient was re-assessed for adequacy to receive sedatives. The heart rate, respiratory rate, oxygen saturations, blood pressure, adequacy of pulmonary ventilation, and response to care were monitored throughout the procedure. The physical status of the patient was re-assessed after the procedure. After obtaining informed consent, the endoscope was passed under direct vision. Throughout the procedure, the patient's blood pressure, pulse, and oxygen saturations were monitored continuously. The gastroscope was introduced through the mouth, and advanced to the jejunum. The upper GI endoscopy was accomplished without difficulty. The patient tolerated the procedure well. Scope In: 2:25:49 PM Scope Out: 2:30:56 PM Total Procedure Duration Time 0 hours 5 minutes 7 seconds Findings: The examined jejunum was normal. Biopsies for histology were taken with a cold forceps for evaluation of celiac disease. The examined duodenum was normal. Patchy mild inflammation characterized by erythema and friability was found in the gastric antrum. Biopsies were taken with a cold forceps for Helicobacter pylori testing using PyloriTek test. Biopsies were taken with a cold forceps for histology. Mildly severe esophagitis with no bleeding was found. Biopsies were taken with a cold forceps for histology. The middle third of the esophagus was normal. Biopsies were taken with a cold forceps for histology. Impression: - Normal examined jejunum. Biopsied. - Normal examined duodenum. - Gastritis. Biopsied. - Mildly severe reflux esophagitis. Rule out Llanos's esophagus. Biopsied. - Normal middle third of esophagus. Biopsied. Recommendation: - Return to my office in 1 week. - Continue present medications. Procedure Code(s): --- Professional --- 65007, Esophagogastroduodenoscopy, flexible, transoral; with biopsy, single or multiple CPT copyright 2017 [employer] [place] [employer] [employer]. All rights reserved. The codes documented in this report are preliminary and upon food general manager review may be revised to meet current compliance requirements. Willie Villagran MD 03/27/2018 2:54:10 PM This report has been signed electronically. Number of Addenda: 0 Note Initiated On: 03/27/2018 2:13 PM
--- NOTE | 2018-03-27 14:56 | OP.ENDO_ITS ---
Patient Name: Kathy Smith Procedure Date: 03/27/2018 2:32 PM Date of : 1950 Age: 68 Procedure: Colonoscopy Indications: Hematochezia, Abnormal CT of the GI tract Providers: Willie Villagran MD Medicines: Monitored Anesthesia Care Patient Profile: This is a 68 year old female. Refer to note in patient chart for documentation of history and physical. Patient has symptoms. Last Colonoscopy: date unknown. Complications: No immediate complications. Procedure: Pre-Anesthesia Assessment: - Prior to the procedure, a History and Physical was performed, and patient medications and allergies were reviewed. The patient is competent. The risks and benefits of the procedure and the sedation options and risks were discussed with the patient. All questions were answered and informed consent was obtained. Patient identification and proposed procedure were verified by the physician, the nurse and the finish sander in the procedure room. Mental Status Examination: alert and oriented. Airway Examination: normal oropharyngeal airway and neck mobility. Respiratory Examination: clear to auscultation. CV Examination: normal. Prophylactic Antibiotics: The patient does not require prophylactic antibiotics. Prior Anticoagulants: The patient has taken no previous anticoagulant or antiplatelet agents. ASA Grade Assessment: II - A patient with mild systemic disease. After reviewing the risks and benefits, the patient was deemed in satisfactory condition to undergo the procedure. The anesthesia plan was to use monitored anesthesia care (MAC). Immediately prior to administration of medications, the patient was re-assessed for adequacy to receive sedatives. The heart rate, respiratory rate, oxygen saturations, blood pressure, adequacy of pulmonary ventilation, and response to care were monitored throughout the procedure. The physical status of the patient was re-assessed after the procedure. After I obtained informed consent, the scope was passed under direct vision. Throughout the procedure, the patient's blood pressure, pulse, and oxygen saturations were monitored continuously. The pediatric colonoscope was introduced through the anus and advanced to 5 cm into the ileum. The colonoscopy was performed without difficulty. The patient tolerated the procedure well. The quality of the bowel preparation was good. Scope In: 2:34:14 PM Scope Withdrawal Time 0 hours 10 minutes 49 seconds Scope Out: 2:50:15 PM Total Procedure Duration Time 0 hours 16 minutes 1 second Findings: The perianal and digital rectal examinations were normal. The terminal ileum appeared normal. Biopsies were taken with a cold forceps for histology. The colon (entire examined portion) appeared normal. Biopsies for histology were taken with a cold forceps from the cecum and sigmoid colon for evaluation of microscopic colitis. The splenic flexure appeared normal. Biopsies were taken with a cold forceps for histology. Many small and large-mouthed diverticula were found in the sigmoid colon. The retroflexed view of the distal rectum and anal verge was normal and showed no anal or rectal abnormalities. Impression: - The examined portion of the ileum was normal. Biopsied. - The entire examined colon is normal. Biopsied. - The splenic flexure is normal. Biopsied. - Diverticulosis in the sigmoid colon. - The distal rectum and anal verge are normal on retroflexion view. Recommendation: - Return patient to hospital [facility]. - Resume regular diet. - Continue present medications. - Return to my office in 1 week. - Repeat colonoscopy is recommended. The colonoscopy date will be determined after pathology results from today's exam become available for review. Procedure Code(s): --- Professional --- 21609, Colonoscopy, flexible; with biopsy, single or multiple CPT copyright 2017 [employer]. All rights reserved. The codes documented in this report are preliminary and upon pig lead melter helper review may be revised to meet current compliance requirements. Willie Villagran MD 03/27/2018 2:56:33 PM This report has been signed electronically. Number of Addenda: 0 Note Initiated On: 03/27/2018 2:32 PM
[2018-03-27] MEDS: proMETHazine 25 MG/ML Syringe 6.25 MG IV (16:12)
[2018-03-27] MEDS: Tamsulosin HCl 0.4 MG Capsule PO (16:14)
--- NOTE | 2018-03-27 17:24 | CON.PCM_ITS ---
Reason for Consult Date of Consultation: 03/27/18 Reason for Consultation: Bilateral hydronephrosis History of Present Illness: The patient is a 68 year old female came in with gastrointestinal bleeding she had workup by general surgery. On CAT scan she had a possible stone in the di stal right ureter as read by CAT scan also appears to have dilated both the left and right ureters she does relate having several UTIs this past year has not had a female gynecological exam in the last year. Has a history of prior lung cancer. Currently describes having some lower back pain. Denies any gross hematuria. Past Medical History Past Medical History (Chronic Problems): Chronic Problems (Last Reviewed 12/20/17 @ 13:48 by Carissa Falcon) Fibromyalgia (Chronic) IBS (irritable bowel syndrome) (Chronic) Thoracic neuritis (Chronic) Segmental and somatic dysfunction of lumbar region (Chronic) Segmental and somatic dysfunction of thoracic region (Chronic) Thoracic back pain (Chronic) Non-small cell lung cancer (NSCLC) (Chronic) Acquired hypothyroidism (Chronic) Benign essential HTN (Chronic) Hypertriglyceridemia (Chronic) Odynophagia (Chronic) Medical History: Medical History (Last Reviewed 12/20/17 @ 13:48 by Carissa Falcon) Fibromyalgia (Chronic) M79.7 IBS (irritable bowel syndrome) (Chronic) K58.9 Allergies doxycycline Allergy (Verified 03/24/18 16:44) Itching cephalexin Adverse Reaction (Verified 03/24/18 16:44) Other citalopram Adverse Reaction (Verified 03/24/18 16:44) Other metoclopramide [From Reglan] Adverse Reaction (Verified 03/24/18 16:44) Other morphine Adverse Reaction (Verified 03/24/18 16:44) Low blood pressure pregabalin Adverse Reaction (Verified 03/24/18 16:44) Other Home Medications: Ambulatory Orders Medication Instructions Recorded ALPRAZolam [Xanax] 0.5 mg PO QHS PRN 02/13/15 Felodipine [Plendil] 10 mg PO DAILY 02/13/15 Levothyroxine [Synthroid] 50 mcg PO DAILY 02/13/15 Atorvastatin Calcium [Lipitor] 10 mg PO QHS 08/17/17 Albuterol Sulfate [Ventolin Hfa] 1 - 2 puff INHALATION PRN PRN 03/24/18 Ergocalciferol (Vitamin D2) 50,000 unit PO QMONTH 03/24/18 [Drisdol] Ibuprofen/Diphenhydramine Cit 2 tab PO QHS 03/24/18 [Advil Pm Caplet] Surgical History: Surgical History (Last Reviewed 12/20/17 @ 13:48 by Carissa Falcon) H/O cataract extraction Z98.49 bilateral S/P appendectomy Z90.49 S/P bilateral foot surgery Z98.890 S/P breast biopsy, bilateral Z98.890 with clip in left breast S/P cholecystectomy Z90.49 S/P partial lobectomy of lung Z90.2 left due to lung cancer S/P removal of ovarian cyst Z98.890, Z87.42 Surgical History: appendectomy, cholecystectomy, hysterectomy Psychiatric History: No pertinent psych hx 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 Smoking Status: Former smoker - *Family History Paternal Family History: Family History (Last Reviewed 12/20/17 @ 13:48 by Carissa Falcon) Mother Diabetes Lung cancer CHF (congestive heart failure) Hypertension Father CHF (congestive heart failure) Hypertension Brother Hypertension Sister Hypertension Diabetes Aunt Breast cancer Other Heart disease History Items: No pertinent history Review of Systems Constitutional: Denies: Chills, Fever, Weight Change HEENT: Denies: Head Aches, Sinus Congestion, Sinus Drainage Cardiovascular: Denies: Chest Pain, Palpitations Respiratory: Denies: Cough, Shortness of breath at rest, Sputum production Gastrointestinal: Reports: Abdominal Pain. Denies: Nausea, Vomiting Genitourinary: Denies: Dysuria Musculoskeletal: Reports: Back Pain. Denies: Joint Pain, Joint Tenderness Skin: Denies: Rash, Wounds Neurological: Denies: Numbness, Tingling, Focal weakness Psychiatric: Denies: Anxiety, Depression, Homicidal Ideations, Suicidal Ideations Hematologic/ Lymphatic: Denies: Easy Bruising, Easy Bleeding Physical Exam - Physical Exam Vital Signs Temp 98.2 F 03/27/18 15:49 Pulse 68 03/27/18 15:49 Resp 18 03/27/18 15:49 BP 136/74 H 03/27/18 15:49 Pulse Ox 94 03/27/18 15:49 Intake & Output 03/25/18 03/26/18 03/27/18 23:59 23:59 23:59 Intake Total 3205 / 3205 4351 / 4351 2839 / 2839 Output Total 200 / 200 1600 / 1600 700 / 700 Balance 3005 / 3005 2751 / 2751 2139 / 2139 Weight: 66.45 kg Intake: Oral 1310 / 1310 2400 / 2400 480 / 480 IV fluid/meds 1895 / 1895 1951 / 195 2359 / 2359 IV #1 800 / 800 Output: Urine 200 / 200 1600 / 1600 700 / 700 Other: Number of Voids 2 Incontinent Amount Moderate Number of Bowel Movements 1 3 General: Alert, Oriented x3 HEENT: Atraumatic Oral: Moist Mucosa Neck: Supple Lungs: Normal air movement Cardiovascular: Regular rate Abdomen: Soft, Obese Microbiology Past 72 Hours 03/25/18 12:30 Enteric Bacteriology - Final Stool 03/25/18 12:30 C. difficile DNA Amplification - Final Stool 03/25/18 12:30 Stool Lactoferrin - Final Stool 03/24/18 17:00 Stool Occult Blood ([facility]) - Final Stool Occult Blood Positive Laboratory Tests Past 24 Hrs 03/27/18 03/27/18 05:08 05:08 WBC 5.7 RBC 4.11 L Hgb 12.6 Hct 37.9 MCV 92.2 MCH 30.7 MCHC 33.2 RDW 13.2 RDW Differential 43.9 Plt Count 227 MPV 9.9 Sodium 144 Potassium 3.4 L Chloride 111 H Carbon Dioxide 26.0 Anion Gap 7 BUN 5 L Creatinine 0.64 Estim Creat Clear Calc 40.07 Est GFR (MDRD) Af Amer 118 Est GFR (MDRD) Non-Af 98 BUN/Creatinine Ratio 7.8 L Glucose 131 H Calcium 8.3 L Assessment/Plan All Active Problems (Last Reviewed 12/20/17 @ 13:48 by Carissa Falcon) Lower gastrointestinal bleeding (Acute) Left sided colitis (Acute) 68-year-old female with bilateral hydronephrosis etiology is unclear if possible for the kidney stone recommend she follow-up with me in the office will do further workup may repeat the CAT scan and do CT scan with contrast, he can follow-up in the office probably will repeat the CAT scan with contrast dye to further evaluate she has normal creatinine. May have to do cystoscopy need to do retrogrades and ureteroscopy if he forgot the etiology of the hydronephrosis currently did state able to think she needs to stay in the hospital but she can follow-up in the office.
--- NOTE | 2018-03-27 20:23 | PN.SURG_ITS ---
Patient Problems: Active and Suspected Problems (Last Reviewed 12/20/17 @ 13:48 by Carissa Falcon) Lower gastrointestinal bleeding (Acute) Left sided colitis (Acute) Subjective: was much more relaxed after having been given Ativan yesterday. No current abdominal complaints - Physical Exam General: Alert, Oriented x3, Cooperative Lungs: Clear to auscultation, Normal air movement Cardiovascular: Regular rate, No murmurs Abdomen: Bowel Sounds Present, Soft, Non Tender Vital Signs Temp Pulse Resp BP Pulse Ox 98 F 76 16 118/45 L 96 03/27/18 19:54 03/27/18 19:54 03/27/18 19:54 03/27/18 19:54 03/27/18 19:54 Oxygen Delivery Method Room Air Weight: 66.45 kg Body Mass Index (BMI) 27.6 Intake and Output for Last 24 Hours 03/25/18 03/26/18 03/27/18 23:59 23:59 23:59 Intake Total 3205 / 3205 4351 / 4351 3630 / 3630 Output Total 200 / 200 1600 / 1600 700 / 700 Balance 3005 / 3005 2751 / 2751 2930 / 2930 Microbiology Past 72 Hours 03/25/18 12:30 Enteric Bacteriology - Final Stool 03/25/18 12:30 C. difficile DNA Amplification - Final Stool 03/25/18 12:30 Stool Lactoferrin - Final Stool 03/24/18 17:00 Stool Occult Blood ([facility]) - Final Stool Occult Blood Positive Laboratory Tests Past 24 Hrs 03/27/18 03/27/18 05:08 05:08 WBC 5.7 RBC 4.11 L Hgb 12.6 Hct 37.9 MCV 92.2 MCH 30.7 MCHC 33.2 RDW 13.2 RDW Differential 43.9 Plt Count 227 MPV 9.9 Sodium 144 Potassium 3.4 L Chloride 111 H Carbon Dioxide 26.0 Anion Gap 7 BUN 5 L Creatinine 0.64 Estim Creat Clear Calc 40.07 Est GFR (MDRD) Af Amer 118 Est GFR (MDRD) Non-Af 98 BUN/Creatinine Ratio 7.8 L Glucose 131 H Calcium 8.3 L Medical Necessity - Tobacco Use Smoking Status: Former smoker Assessment/Plan All Active Problems (Last Reviewed 12/20/17 @ 13:48 by Carissa Falcon) Lower gastrointestinal bleeding (Acute) Left sided colitis (Acute) colitis, hematochezia, epigastric symptoms stool cultures negative fecal leukocytes positive. The patient feels hungry but noted bloating and discomfort with clear liquids. patient noted anxiety and overall continued GI symptoms overnight. The patient's anxiety is-given her history of lung cancer does she have intra- abdominal malignancy. I reassured her that I don't believe this is related all and not a malignant process in her abdomen. She seems somewhat relieved by that but still somewhat anxious area at this time, I'm uncertain whether her abdominal symptoms are now anxiety or continued slow bowel transit. I gave her Ativan to see if this improved her overall symptoms and renewed her Xanax for overnight. she called yesterday afternoon stating she was overall feeling much better with minimal abdominal discomfort after she was given the Ativan. She wished undergo the bowel prep and have endoscopy today. She tolerated the bowel prep well. Patient states she had a left complete pneumonectomy. Review of previous studies seem more consistent with a lower lobectomy. Lung exam is clear I performed upper and lower endoscopy. Upper endoscopy demonstrated gastritis and distal esophagitis. Biopsies were taken and are currently pending. Lower endoscopy interestingly enough demonstrated no specific abnormalities. The terminal ileum was intubated and this was normal. Biopsies of the terminal ileum random colon biopsies and specifically biopsies at the splenic flexure given the patient's CT scan findings were obtained. Currently-I recommend the patient was started on a proton pump inhibitor. I'm comfortable with being discharged when this is okay with the medicine service and follow up in my office next week for pathology results.
[2018-03-27] MEDS: Atorvastatin Calcium 10 MG Tablet PO (20:59)
[2018-03-28 02:04] VITALS: BP 110/41; PULSE 73; RESP 16; TEMP 36.8; O2SAT 94
--- NOTE | 2018-03-28 05:55 | PN.SURG_ITS ---
Patient Problems: Active and Suspected Problems (Last Reviewed 12/20/17 @ 13:48 by Carissa Falcon) Lower gastrointestinal bleeding (Acute) Left sided colitis (Acute) Subjective: no complaints - Physical Exam Abdomen: Bowel Sounds Present, Soft, Non Tender Vital Signs Temp Pulse Resp BP Pulse Ox 98.2 F 73 16 110/41 L 94 03/28/18 02:04 03/28/18 02:04 03/28/18 02:04 03/28/18 02:04 03/28/18 02:04 Oxygen Delivery Method Room Air Weight: 66.45 kg Body Mass Index (BMI) 27.6 Intake and Output for Last 24 Hours 03/26/18 03/27/18 03/28/18 23:59 23:59 23:59 Intake Total 4351 / 4351 3630 / 3630 1885 / 1885 Output Total 1600 / 1600 700 / 700 Balance 2751 / 2751 2930 / 2930 1885 / 1885 Microbiology Past 72 Hours 03/25/18 12:30 Enteric Bacteriology - Final Stool 03/25/18 12:30 C. difficile DNA Amplification - Final Stool 03/25/18 12:30 Stool Lactoferrin - Final Stool Laboratory Tests Past 24 Hrs 03/27/18 03/28/18 05:08 05:14 WBC 5.7 RBC 4.11 L Hgb 12.6 Hct 37.9 MCV 92.2 MCH 30.7 MCHC 33.2 RDW 13.2 RDW Differential 43.9 Plt Count 227 MPV 9.9 Sodium Pending Potassium Pending Chloride Pending Carbon Dioxide Pending Anion Gap Pending BUN Pending Creatinine Pending Est GFR (MDRD) Af Amer Pending Est GFR (MDRD) Non-Af Pending BUN/Creatinine Ratio Pending Glucose Pending Calcium Pending Medical Necessity - Tobacco Use Smoking Status: Former smoker Assessment/Plan All Active Problems (Last Reviewed 12/20/17 @ 13:48 by Carissa Falcon) Lower gastrointestinal bleeding (Acute) Left sided colitis (Acute) colitis, hematochezia, epigastric symptoms stool cultures negative fecal leukocytes positive. The patient feels hungry but noted bloating and discomfort with clear liquids. patient noted anxiety and overall continued GI symptoms overnight. The patient's anxiety is-given her history of lung cancer does she have intra- abdominal malignancy. I reassured her that I don't believe this is related all and not a malignant process in her abdomen. She seems somewhat relieved by that but still somewhat anxious area at this time, I'm uncertain whether her abdominal symptoms are now anxiety or continued slow bowel transit. I gave her Ativan to see if this improved her overall symptoms and renewed her Xanax for overnight. she called yesterday afternoon stating she was overall feeling much better with minimal abdominal discomfort after she was given the Ativan. She wished undergo the bowel prep and have endoscopy today. She tolerated the bowel prep well. Patient states she had a left complete pneumonectomy. Review of previous studies seem more consistent with a lower lobectomy. Lung exam is clear I performed upper and lower endoscopy. Upper endoscopy demonstrated gastritis and distal esophagitis. Biopsies were taken and are currently pending. Lower endoscopy interestingly enough demonstrated no specific abnormalities. The terminal ileum was intubated and this was normal. Biopsies of the terminal ileum random colon biopsies and specifically biopsies at the splenic flexure given the patient's CT scan findings were obtained. Currently-I recommend the patient was started on a proton pump inhibitor. I'm comfortable with being discharged when this is okay with the medicine service and follow up in my office next week for pathology results.
[2018-03-28 06:07] LABS: Anion Gap 8 (5-15); BUN 8 mg/dL (7-18); BUN/Creat Ratio 13.3 RATIO (10-20); Chloride 113 mmol/L (98-107); EST Glomerular Filtration Rate 105 mL/min (>60); Est Glom Filt Rate - Afr Amer 127 mL/min (>60); Estimated Creatinine Clearance 40.07 ml/min; Glucose 136 mg/dL (74-106); Potassium 3.8 mmol/L (3.5-5.1); Sodium Level 145 mmol/L (136-145)
[2018-03-28] MEDS: Levothyroxine 50 MCG Tablet PO (06:54)
[2018-03-28 08:05] VITALS: BP 111/56; PULSE 77; RESP 18; TEMP 37.2; O2SAT 96
[2018-03-28] MEDS: amLODIPine 10 MG Tablet PO (08:46)
[2018-03-28] MEDS: Pantoprazole Sodium 40 MG Tablet PO (08:47)
--- NOTE | 2018-03-28 09:04 | DCINST_ITS ---
- Discharge Diagnoses Current Active Problems: Current Active and Chronic Problems (Last Reviewed 12/20/17 @ 13:48 by Carissa Falcon) Lower gastrointestinal bleeding (Acute) Left sided colitis (Acute) You will use the following diet at home:: Cardiac, Other - Light diet, advance as tolerated. Your food should be the consistency of: Soft (bite-sized & easy to chew/swallow) Discharge Activity: Return to Normal Activity Weight Bearing Status: Weight bearing as tolerated Call your doctor if you observe: Fever of 101 or Higher, Shortness of breath, Dizziness, Fainting spells, Chest pain, Increased palpitations (irregular heartbeat), Uncontrolled pain Allergies/Adverse Reactions: Allergies doxycycline Allergy (Verified 03/24/18 16:44) Itching cephalexin Adverse Reaction (Verified 03/24/18 16:44) Other citalopram Adverse Reaction (Verified 03/24/18 16:44) Other metoclopramide [From Reglan] Adverse Reaction (Verified 03/24/18 16:44) Other morphine Adverse Reaction (Verified 03/24/18 16:44) Low blood pressure pregabalin Adverse Reaction (Verified 03/24/18 16:44) Other Medications to take at Discharge ALPRAZolam [Xanax] 0.5 mg PO QHS PRN 02/13/15 Felodipine [Plendil] 10 mg PO DAILY 02/13/15 Levothyroxine [Synthroid] 50 mcg PO DAILY 02/13/15 Atorvastatin Calcium [Lipitor] 10 mg PO QHS 08/17/17 Albuterol Sulfate [Ventolin Hfa] 1 - 2 puff INHALATION PRN PRN 03/24/18 Ergocalciferol (Vitamin D2) [Drisdol] 50,000 unit PO QMONTH 03/24/18 Ibuprofen/Diphenhydramine Cit [Advil Pm Caplet] 2 tab PO QHS 03/24/18 Ciprofloxacin [Cipro] 500 mg PO BID #20 tablet 03/28/18 Metronidazole [Flagyl] 500 mg PO Q8H #30 tablet 03/28/18 Pantoprazole Sodium [Protonix] 40 mg PO DAILY #30 tablet 03/28/18 The following prescriptions were given: Metronidazole [Flagyl] 500 mg PO Q8H #30 tablet Pantoprazole Sodium [Protonix] 40 mg PO DAILY #30 tablet Ciprofloxacin [Cipro] 500 mg PO BID #20 tablet Primary Care Physician: Yadira Alston MD [Primary Care Provider] - Please follow up with your Primary Care Physician in: 1-2 weeks. Test Results: Test results from this visit will be discussed in further detail at your follow- up appointment, if applicable. Please Follow Up With: Willie Villagran MD When: 1 week.
[2018-03-28] MEDS: Mag Hydrox/Al Hydrox/Simeth 30 ML UDC PO (09:33)
[2018-03-28] MEDS: Ciprofloxacin 500 MG Tablet PO (10:25)
--- NOTE | 2018-03-28 11:22 | PCM.DC.SUM ---
Discharge Date and Diagnosis - Problem List Patient Problems: Active and Suspected Problems (Last Reviewed 12/20/17 @ 13:48 by Carissa Falcon) Lower gastrointestinal bleeding (Acute) Left sided colitis (Acute) Date of Admission: 03/24/18 Date of Discharge: 03/28/18 - Primary Discharge Diagnosis Active and Suspected Problems (Last Reviewed 12/20/17 @ 13:48 by Carissa Falcon) #1 acute colitis of the distal transverse and descending colon. #2 gastritis/reflux esophagitis. #3 hypokalemia. #4 persistent right-sided hydronephrosis. - Secondary Discharge Diagnosis Chronic Problems (Last Reviewed 12/20/17 @ 13:48 by Carissa Falcon) Fibromyalgia (Chronic) IBS (irritable bowel syndrome) (Chronic) Thoracic neuritis (Chronic) Segmental and somatic dysfunction of lumbar region (Chronic) Segmental and somatic dysfunction of thoracic region (Chronic) Thoracic back pain (Chronic) Non-small cell lung cancer (NSCLC) (Chronic) Acquired hypothyroidism (Chronic) Benign essential HTN (Chronic) Hypertriglyceridemia (Chronic) Odynophagia (Chronic) Hospital Course and Treatment Imaging Results: Clinical Impression(s) from Imaging Studies Abdomen/Pelvis CT 03/24/18 17:03 IMPRESSION: There is persistent right-sided hydronephrosis. There is a suggestion of a possible focus of punctate stone or other potentially intraluminal material infection or mass within the distal right ureter image #83 of the axial views. It is at this level that there is abrupt narrowing of the right ureter. Recommend consideration for follow-up urology study consideration for urogram. There is a decompressed mildly thick-walled appearance of the colon from the distal transverse colon to the descending colon. Findings are suspicious for mild colitis. Status post cholecystectomy. Status post hysterectomy. Diverticulosis no visualized diverticulitis. Electronically Signed: Elizabet Quinones MD at 19:17 EST Tel , Service support , Dr. Keith, general surgery. Dr. Schultz, urology. Operations: None Procedures: Colonoscopy, EGD Summary of Care Provided: Patient seen and examined on the day of discharge and appeared to be stable to be discharged home. Her abdominal pain significantly improved. She has no more hematochezia. Denied nausea or vomiting. She has been tolerating her diet. Her vital signs are stable. This is a 68 years old female patient presented to the emergency room because of lower abdominal pain and rectal bleeding, found to have findings consistent with acute colitis of the transverse and descending colon and also found to have right hydronephrosis on CT scan abdomen. #1 acute colitis of the distal transverse and descending colon: Presumed to be due to viral etiology. She was treated with IV fluids, IV ciprofloxacin and Flagyl. Stool for C. difficile was negative. Stool for enteric pathogen was negative as well. With treatment, patient symptoms improved and she was able to tolerate regular diet. Patient was discharged home on 10 days of ciprofloxacin and Flagyl. #2 lower GI bleed/gastritis/reflux esophagitis: Secondary to above. Her hematocrit and hemoglobin remained stable throughout admission. Upper EGD revealed gastritis and mildly severe reflux esophagitis. Colonoscopy revealed no evidence of active bleeding, revealed sigmoid diverticulosis, otherwise normal. She was discharged on Protonix. Gastric and colonic biopsies taking, pathology result is pending. Plan to follow-up with general surgery in 1 week regarding the results of the biopsies. #3 hypokalemia: Replaced and corrected per protocol. #4 persistent right-sided hydronephrosis: CT scan abdomen and pelvis with contrast revealed persistent right-sided hydronephrosis, possible punctate stone or mass within the distal right ureter. Her kidney function was normal. Urinalysis revealed no evidence of acute cystitis. Urology was consulted and recommended follow-up as outpatient with plan to repeat CT scan abdomen in the near future. Patient discharged home in a stable medical condition, discharged on Protonix, discharged on 10 days of ciprofloxacin and Flagyl for acute colitis, plan to follow-up with general surgery in 1 week for gastric and colonic biopsy results, follow-up with PCP in 1 week. This note was generated with [employer] dictation software. It may contain incorrect words, spelling, and punctuation that were not noted in checking the note before signing. Patient Problems: Active and Suspected Problems (Last Reviewed 12/20/17 @ 13:48 by Carissa Falcon) Lower gastrointestinal bleeding (Acute) Left sided colitis (Acute) - Physical Exam General: Alert, Oriented x3, Cooperative, No apparent distress HEENT: Atraumatic, PERRLA, EOMI, Normocephalic Oral: Moist Mucosa, No Gingival or Mucosal Lesions/ Ulcerations Neck: Supple, No JVD, Negative Carotid Bruits, Thyroid Normal Size and Texture Lungs: Clear to auscultation, No rhonchi, No wheeze, No rales, Diminished Cardiovascular: Regular rate, Regular Rhythm, Normal S1, Normal S2, PMI Normal Abdomen: Bowel Sounds Present, Soft, Non Tender, Non-Distended, No Hepato-splenomegaly Extremities: No clubbing, No cyanosis, No edema Skin: No rashes, No breakdown Neurological: Cranial nerves II-XII grossly intact, Neuro grossly intact Psych/Mental Status: Normal Affect, Appropriate, Alert and oriented to time, place, person, mood and affect Vital Signs Temp Pulse Resp BP Pulse Ox 99.0 F 77 18 111/56 L 96 03/28/18 08:05 03/28/18 08:05 03/28/18 08:05 03/28/18 08:05 03/28/18 08:05 Oxygen Delivery Method Room Air Weight: 146 lb 7.955 oz Body Mass Index (BMI) 27.6 Intake and Output for Last 24 Hours 03/26/18 03/27/18 03/28/18 23:59 23:59 23:59 Intake Total 4351 / 4351 3630 / 3630 1885 / 1885 Output Total 1600 / 1600 700 / 700 Balance 2751 / 2751 2930 / 2930 1885 / 1885 Microbiology Past 72 Hours 03/25/18 12:30 Enteric Bacteriology - Final Stool 03/25/18 12:30 C. difficile DNA Amplification - Final Stool 03/25/18 12:30 Stool Lactoferrin - Final Stool Laboratory Tests Past 24 Hrs 03/28/18 05:14 Sodium 145 Potassium 3.8 Chloride 113 H Carbon Dioxide 24.0 Anion Gap 8 BUN 8 Creatinine 0.60 Estim Creat Clear Calc 40.07 Est GFR (MDRD) Af Amer 127 Est GFR (MDRD) Non-Af 105 BUN/Creatinine Ratio 13.3 Glucose 136 H Calcium 8.0 L Discharge Activity: Return to Normal Activity Weight Bearing Status: Weight bearing as tolerated Call your doctor if you observe: Fever of 101 or Higher, Shortness of breath, Dizziness, Fainting spells, Chest pain, Increased palpitations (irregular heartbeat), Uncontrolled pain Home Medications: Medications to take at Discharge ALPRAZolam [Xanax] 0.5 mg PO QHS PRN 02/13/15 Felodipine [Plendil] 10 mg PO DAILY 02/13/15 Levothyroxine [Synthroid] 50 mcg PO DAILY 02/13/15 Atorvastatin Calcium [Lipitor] 10 mg PO QHS 08/17/17 Albuterol Sulfate [Ventolin Hfa] 1 - 2 puff INHALATION PRN PRN 03/24/18 Ergocalciferol (Vitamin D2) [Drisdol] 50,000 unit PO QMONTH 03/24/18 Ibuprofen/Diphenhydramine Cit [Advil Pm Caplet] 2 tab PO QHS 03/24/18 Ciprofloxacin [Cipro] 500 mg PO BID #20 tablet 03/28/18 Metronidazole [Flagyl] 500 mg PO Q8H #30 tablet 03/28/18 Pantoprazole Sodium [Protonix] 40 mg PO DAILY #30 tablet 03/28/18 Following Prescrptions Were Given to Patient: Metronidazole [Flagyl] 500 mg PO Q8H #30 tablet Pantoprazole Sodium [Protonix] 40 mg PO DAILY #30 tablet Ciprofloxacin [Cipro] 500 mg PO BID #20 tablet Primary Care Physician: Yadira Alston MD [Primary Care Provider] - Please follow up with your Primary Care Physician in: 1-2 weeks. Please Follow Up With: Willie Villagran MD When: 1 week. Please Follow Up With: YADIRA WEI When: 1 TO 2 WEEKS Disposition: Home Minutes spent on discharge:: 33 Patient Condition:: Stable Medical Necessity - Tobacco Use Smoking Status: Former smoker Meaningful Use Info Meaningful Use Diagnoses (Choose all that apply): None applicable Code Visit Inpatient E&M: 71620 Disch Hosp
--- NOTE | 2018-03-30 16:42 | CASEMGMT ---
RN CM Discharge Follow-up Phone Call: KASANDRA: Lizzie Strata: 4 Call Date: 03/30/18 Discharge Date: 03/28/18 Time of Call: 1640 Duration: 1 min Admitting Diagnosis: Left sided colitis, LGIB RN CM attempted follow-up phone call after recent hospitalization. No answer, voice message left with return contact information.
== END 2018-03-28 13:37 | disposition home or self-care (01) | DRG 392 ==
LOC: ED 20:15 → MS3 20:31
PROVIDERS: Internal Medicine; Surgery; Admitting Provider Internal Medicine; Emergency Provider Emergency Medicine; Family Provider Family Medicine; PCP Family Medicine; Visit Provider Hospitalist
PROC: 0DJD8ZZ Inspection of Lower Intestinal Tract, Via Natural or Artificial Opening Endoscopic (ICD-10-PCS; CPT 45378; principal; 2018-03-27 13:55)
DX: A08.4 Viral intestinal infection, unspecified (principal); C34.92 Malignant neoplasm of unspecified part of left bronchus or lung; N13.30 Unspecified hydronephrosis; K92.2 Gastrointestinal hemorrhage, unspecified; E87.6 Hypokalemia; E03.9 Hypothyroidism, unspecified; F41.8 Other specified anxiety disorders; K29.70 Gastritis, unspecified, without bleeding; K21.0 Gastro-esophageal reflux disease with esophagitis; Z90.2 Acquired absence of lung [part of]; M79.7 Fibromyalgia; I10 Essential (primary) hypertension; Z87.891 Personal history of nicotine dependence; K57.30 Diverticulosis of large intestine without perforation or abscess without bleeding; E78.1 Pure hyperglyceridemia; K58.9 Irritable bowel syndrome, unspecified
CPT/HCPCS: 36415; 74177; 80048; 80053; 81001; 82274; 82962; 83036; 83630; 83690; 83735; 84439; 84443; 85025; 85027; 87493; 87506; 88305; 88342; 97802; 99285; J7030; Q9967; A4216; J0744

== ENCOUNTER → 2018-03-30 12:38 | Outpatient (CLI) | payer MEDICARE, OTHER, SELFPAY ==
--- NOTE | 2018-03-30 12:53 | CT_ITS ---
STUDY: CT CHEST WITH CONTRAST REASON FOR EXAM: Female, 68 years old. Lung cancer follow-up. Prior left lower lobectomy. RADIATION DOSAGE (If Supplied By Facility): DLP = ( 544.81 ) mGycm TECHNIQUE: Transaxial imaging was performed following intravenous administration of 100 ml of Isovue 300 contrast material. : Sagittal 2-D MPR. Individualized dose optimization techniques were used for this CT. COMPARISON: CT abdomen and pelvis 03/24/2018, CTA chest 08/17/2017, CT chest 03/30/2017 and 09/13/2016. FINDINGS: Supraclavicular: Normal thyroid, no mass or lymphadenopathy. Thoracic body wall soft tissues: There is a small circumscribed oval nodular focus within the right central breast, retroareolar, measuring about 12 mm. Nonspecific. This requires direct correlation with patient's mammographic history. If no recent mammography, a follow-up ultrasound of the right breast is recommended. Upper abdomen: Mild pancreatic atrophy. Osseous structures: No acute process. Mild kyphoscoliosis. Osteopenia with minimal thoracic spondylosis. Mediastinum: Small sliding hiatal hernia. Mild circumferential thickening of wall the distal 3rd of the esophagus may reflect the presence of reflux esophagitis. A few shotty lymph nodes are present in the mediastinum paratracheal, none pathologically enlarged. There is no evidence of hilar lymphadenopathy. Cardiovascular: Normal heart size without pericardial effusion. Mild calcifications present in the proximal LAD. Nondilated aorta with mild atherosclerosis, patent three-vessel cervical arch branching. Nondilated central pulmonary arteries with no evidence of large central pulmonary embolus. The study was not optimized for evaluation of peripheral pulmonary emboli but none is observed. Lungs: There is evidence of left lower lobectomy, postsurgical changes in the hilum, mild compensatory hyperinflation of the remaining left upper lobe. The left lung is clear. Right lung is clear. Each lung exhibits mild changes of centrilobular emphysema predominating at the apices. There is no evidence of endobronchial lesion. CT/Chest WITH Contrast IMPRESSION: No acute cardiopulmonary process. There is no evidence of primary malignancy or lymphadenopathy. Centrilobular emphysema. Small sliding hiatal hernia. Minimal coronary atherosclerosis. Mild pancreatic atrophy. Electronically Signed: Willie Quinn, at 11:52 EST Tel , Service support ,
[2018-03-30 12:55] LABS: Absolute Lymphocyte Count 1.57 X10^3/ul (0.83-4.51); Absolute Neutrophil Count 4.4 X10^3/uL (2.0-7.7); Basophil# 0.02 X10^3/uL; Basophil% 0.3 % (0-1); Eosinophil# 0.18 X10^3/uL; Eosinophils% 2.7 % (0-5); Hematocrit 42.3 % (37-47); Hemoglobin 13.6 g/dl (12.0-15.0); Lymphocyte # 1.57 X10^3/ul (4.0); Lymphocyte % 23.5 % (19-41); Mean Corp Hgb Conc 32.2 g/gl (32-36); Mean Corpuscular Hgb 29.9 pg (27.0-32.0); Mean Platelet Vol. 10.2 fl (6.2-12.0); Monocyte# 0.49 X10^3/uL; Monocyte% 7.3 % (0-10); Neutrophil % 66.1 % (47-70); Platelet Count 252 K/mm3 (150-450); RBC Distribution Width CV 13.5 % (11.6-14.6); RBC Distribution Width SD 45.5 fl (35.1-43.9); Red Blood Count 4.55 M/mm3 (4.2-5.4); White Blood Count 6.7 K/mm3 (4.4-11.0)
[2018-03-30 12:56] LABS: POSITIVE COUNT NO; POSITIVE DIFFERENTIAL NO; POSITIVE MORPHOLOGY NO
[2018-03-30 13:09] LABS: ALB/GLOB Ratio 0.9 RATIO (0.9-2.4); AST(SGOT) 62 U/L (15-37); Alanine Aminotransfer ALT/SGPT 77 U/L (13-56); Albumin, Serum 3.6 g/dL (3.2-5.0); Alkaline Phosphatase 85 U/L (45-117); Anion Gap 7 (5-15); BUN 10 mg/dL (7-18); Calcium,Total 8.6 mg/dL (8.5-10.1); Chloride 107 mmol/L (98-107); Creatinine, Serum 0.91 mg/dL (0.55-1.02); EST Glomerular Filtration Rate 65 mL/min (>60); Est Glom Filt Rate - Afr Amer 79 mL/min (>60); Globulin 3.8 g/dL (2.2-4.2); Glucose 144 mg/dL (74-106); Potassium 3.5 mmol/L (3.5-5.1); Protein, Total 7.4 g/dL (6.4-8.2); Sodium Level 142 mmol/L (136-145)
[2018-03-30 20:43] LABS: Xtra Tube EP Lab EXTRA TUBE
== END ==
PROVIDERS: Family Provider Family Medicine; PCP Family Medicine; Referring Provider Internal Medicine Medical Oncology; Visit Provider Internal Medicine Medical Oncology
DX: C34.32 Malignant neoplasm of lower lobe, left bronchus or lung (principal)
CPT/HCPCS: 36415; 71260; 80053; 85025; Q9967

== ENCOUNTER → 2018-04-14 13:13 | Outpatient (CLI) | payer MEDICARE, OTHER, SELFPAY ==
[2018-04-12 15:25] VITALS: BMI 26.6
--- NOTE | 2018-04-14 13:17 | US_ITS ---
STUDY: ULTRASOUND BREAST - RIGHT REASON FOR EXAM: Female, 68 years old. Abnormal screening mammogram. TECHNIQUE: Axial and longitudinal images of the RIGHT breast were performed with a high resolution ultrasound transducer. COMPARISON: Comparison is made with prior mammogram done earlier today. FINDINGS: RIGHT Breast: There is a 1.1 cm x 1.0 cm x 0.5 cm cyst at the 12:00 position breast a 1 cm from the nipple. US/Breast Limited Unilateral IMPRESSION: There is a 1.1 cm x 1.0 cm x 0.5 cm cyst at the 12:00 position of the breast at 1 cm from nipple. ASSESSMENT CATEGORY: BIRADS Category 2: Benign. A letter regarding these results will be sent to the patient by the facility within 30 days. Electronically Signed: Vernon Skinner MD at 14:54 EST Tel [phone], Service support ,
--- NOTE | 2018-04-14 13:17 | BI_ITS ---
MAMMOGRAPHY - BILATERAL DIAGNOSTIC REASON FOR EXAM: Female, 68 years old. Right breast nodule seen on a recent CT scan of the thorax. PERTINENT HISTORY: Aunt with breast cancer. Remote left excisional breast biopsy. TECHNIQUE: Digital bilateral breast derrick (3D mammographic acquisition) in the CC and MLO projections. 2-D mediolateral oblique (MLO) and craniocaudad (CC) views of both breasts were obtained. CAD: Full Field Digital Mammography with Computer Added Detection was performed. COMPARISON: Comparison is made with prior outside examination dated March 29, 2016. FINDINGS: Breast Composition: There are scattered areas of fibroglandular density. There is a 1.3 cm x 1.5 cm well-defined nodular density in the upper retroareolar region of the left breast. Correlation with ultrasound is recommended. No other significant abnormalities are identified. BI/DIAG MAMM W/CAD, BILAT IMPRESSION: 1.3 cm x 1.5 cm well-defined nodular density in the upper retroareolar region of the right breast as described. Correlation with ultrasound is recommended. ASSESSMENT CATEGORY: BIRADS Category 0: Incomplete. Need additional imaging evaluation. A letter regarding these results will be sent to the patient by the facility within 30 days. Approximately 10% of breast cancers are not detected by mammography. A normal mammogram should not delay biopsy of a clinically suspicious abnormality. Electronically Signed: Vernon Skinner MD at 15:04 EST Tel [phone], Service support ,
--- OUTSIDE RECORDS SUMMARY | 2018-06-09 12:14 | XMS RPT_ITS ---
:1950 Author Organization OHIP Support Name Relationship Address Phone PREETI SANCHEZ Unavailable [address] + [facility] [place] [address] R Unavailable Unavailable Unavailable KRPREETI LOFTON Unavailable [address] + [facility] [place] [address] R Unavailable Unavailable Unavailable PREETI SANCHEZ Unavailable [address] + [facility] [place] [address] R Unavailable Unavailable Unavailable KRPREETI LOFTON Unavailable [address] + [place] [address] R Unavailable Unavailable Unavailable PREETI SANCHEZ Unavailable [address] + [facility] [place] [address] R Unavailable Unavailable Unavailable KRPREETI LOFTON Unavailable [address] + [place] [address] R Unavailable Unavailable Unavailable KRPREETI LOFTON Unavailable [address] + [place] [address] R Unavailable Unavailable Unavailable KRPREETI LOFTON Unavailable [address] + [place] [address] R Unavailable Unavailable Unavailable KRPREETI LOFTON Unavailable [address] + [place] [address] R Unavailable Unavailable Unavailable KRUDAPREETI Unavailable [address] + [place] [address] R Unavailable Unavailable Unavailable KRUDAPREETI Unavailable [address] + [place] [address] R Unavailable Unavailable Unavailable KRUDAPREETI Unavailable [address] + [place] [address] R Unavailable Unavailable Unavailable KRPREETI LOFTON Unavailable [address] + [facility] [place] [address] R Unavailable Unavailable Unavailable KRUDAPREETI Unavailable [address] + [place] [address] R Unavailable Unavailable Unavailable KRUDAPREETI Unavailable [address] + [facility] [place] [address] R Unavailable Unavailable Unavailable KRUDAPREETI Unavailable [address] + [place] [address] R Unavailable Unavailable Unavailable KRPREETI LOFTON Unavailable [address] + [place] [address] R Unavailable Unavailable Unavailable KRUDAPREETI Unavailable [address] + [facility] [place] [address] R Unavailable Unavailable Unavailable KRUDAPREETI Unavailable [address] + [facility] [place] [address] R Unavailable Unavailable Unavailable KRPREETI LOFTON Unavailable [address] [phone] [place] [address] R Unavailable Unavailable Unavailable KRPREETI LOFTON Unavailable [address] [phone] [facility] [place] [address] R Unavailable Unavailable Unavailable KRPREETI LOFTON Unavailable [address] [phone] [place] [address] R Unavailable Unavailable Unavailable KRUDAPREETI Unavailable [address] [phone] [facility] [place] [address] R Unavailable Unavailable Unavailable KRPREETI LOFTON Unavailable [address] [phone] [place] [address] R Unavailable Unavailable Unavailable KRPREETI LOFTON Unavailable [address] [phone] [place] [address] R Unavailable Unavailable Unavailable KRUDAPREETI Unavailable [address] [phone] [place] [address] R Unavailable Unavailable Unavailable KRUDAPREETI Unavailable [address] [phone] [place] [address] R Unavailable Unavailable Unavailable KRUDAPREETI Unavailable [address] [phone] [place] [address] R Unavailable Unavailable Unavailable KRPREETI LOFTON Unavailable [address] [phone] [place] [address] R Unavailable Unavailable Unavailable KRUDAPREETI Unavailable [address] [phone] [facility] [place] [address] R Unavailable Unavailable Unavailable KRUDAPREETI Unavailable [address] [phone] [facility] [place] [address] R Unavailable Unavailable Unavailable KRUDAPREETI Unavailable [address] [phone] [facility] [place] [address] R Unavailable Unavailable Unavailable KRUDAPREETI Unavailable [address] [phone] [facility] [place] [address] R Unavailable Unavailable Unavailable KRUDAPREETI Unavailable [address] [phone] [facility] [place] [address] R Unavailable Unavailable Unavailable KRPREETI LOFTON Unavailable [address] [phone] [facility] [place] [address] R Unavailable Unavailable Unavailable KRPREETI LOFTON Unavailable [address] [phone] [facility] [place] [address] R Unavailable Unavailable Unavailable KRUDAPREETI Unavailable [address] [phone] [facility] [place] [address] R Unavailable Unavailable Unavailable KRUDAPREETI Unavailable [address] [phone] [facility] [place] [address] R Unavailable Unavailable Unavailable Care Team Providers Name Role Phone DAYANA COHEN Attending Unavailable DAYANA COHEN Attending Unavailable DAVID, TIM CHI Referring Unavailable Gerardo Canas Attending Unavailable David, Tim Chi Referring Unavailable Yadira Alston Primary Care Unavailable David, Tim Chi Attending Unavailable David, Tim Chi Primary Care Unavailable David, Tim Chi Attending Unavailable David, Tim Chi Primary Care Unavailable David, Tim Chi Primary Care Unavailable Ashelfah, Ghasem Admitting Unavailable Paintsil, Heaters Attending Unavailable Ashelfah, Ghasem Admitting Unavailable David, Tim Chi Primary Care Unavailable Ashelfah, Ghasem Consulting Unavailable Koffi Chapa Attending Unavailable Ashelfah, Ghasem Admitting Unavailable Shekhar Whiteside Attending Unavailable David, Tim Chi Primary Care Unavailable Paintsil, Heaters Consulting Unavailable Carol Choi D.C. Attending Unavailable David, Tim Chi Referring Unavailable David, Tim Chi Primary Care Unavailable Carol Choi D.C. Attending Unavailable David, Tim Chi Referring Unavailable David, Tim Chi Primary Care Unavailable Dossie, Carol Steel Attending Unavailable David, Tim Chi Referring Unavailable David, Tim Chi Primary Care Unavailable DossieCarol D.C. Attending Unavailable David, Tim Chi Referring Unavailable David, Tim Chi Primary Care Unavailable DossieCarol D.C. Attending Unavailable David, Tim Chi Referring Unavailable David, Tim Chi Primary Care Unavailable Dossie, Carol Steel Attending Unavailable David, Tim Chi Referring Unavailable David, Tim Chi Primary Care Unavailable Ethan Dickerson Attending Unavailable Ashelfah, Ghasem Referring Unavailable Dossie, Carol Steel Attending Unavailable David, Tim Chi Referring Unavailable David, Tim Chi Primary Care Unavailable DossieCarol D.C. Attending Unavailable David, Tim Chi Referring Unavailable DossieCarol D.C. Attending Unavailable David, Tim Chi Referring Unavailable David, Tim Chi Primary Care Unavailable DossieCarol D.C. Attending Unavailable David, Tim Chi Referring Unavailable David, Tim Chi Primary Care Unavailable Ethan Dickerson Attending Unavailable Ashelfah, Ghasem Referring Unavailable Dossie, Carol Steel Attending Unavailable David, Tim Chi Referring Unavailable David, Tim Chi Primary Care Unavailable DossieCarol D.C. Attending Unavailable David, Tim Chi Referring Unavailable David, Tim Chi Primary Care Unavailable AlphaKristay Attending Unavailable David, Tim Chi Referring Unavailable AlphaKristay Attending Unavailable David, Itm Chi Referring Unavailable David, Tim Chi Primary Care Unavailable Melissa Merlyn Attending Unavailable David, Tim Chi Primary Care Unavailable Melissa, Merlyn Referring Unavailable David, Tim Chi Attending Unavailable David, Tim Chi Primary Care Unavailable David, Tim Chi Attending Unavailable David, Tim Chi Referring Unavailable David, Tim Chi Primary Care Unavailable David, Tim Chi Attending Unavailable David, Tim Chi Primary Care Unavailable David, Tim Chi Attending Unavailable David, Tim Chi Referring Unavailable David, Tim Chi Primary Care Unavailable Miedel, Yadira Primary Care Unavailable David, Wicho Admitting Unavailable Dayana Cohen Consulting Unavailable Ashelfah, Ghasem Attending Unavailable Carlos Alberto Schultz Consulting Unavailable David, Wicho Admitting Unavailable [facility], Wicho Attending Unavailable [facility], Yadira Primary Care Unavailable David, Wicho Consulting Unavailable David, Wicho Admitting Unavailable Braydon Cline Attending Unavailable [facility] Primary Care Unavailable Dayana Cohen Consulting Unavailable Antoine, Anjum Consulting Unavailable Son, Braydon Consulting Unavailable David, Wicho Admitting Unavailable Braydon Cline Attending Unavailable Mied, Wilton Primary Care Unavailable Dayana Cohen Consulting Unavailable Antoine, Anjum Consulting Unavailable Kittoe, Braydon Consulting Unavailable David, Wicho Admitting Unavailable Ashelfah, Ghasem Attending Unavailable [facility], Wilton Primary Care Unavailable Dayana Cohen Consulting Unavailable Antoine, Carlos Alberto Joyner Consulting Unavailable Ashelfah, Ghasem Consulting Unavailable David, Wicho Admitting Unavailable Ashelfah, Ghasem Attending Unavailable [facility] Primary Care Unavailable Dayana Cohen Consulting Unavailable Antoine, Carlos Alberto Joyner Consulting Unavailable Ashelfah, Ghasem Consulting Unavailable Gerardo Canas Attending Unavailable Gerardo Canas Referring Unavailable [facility], Wilton Primary Care Unavailable Gerardo Canas Attending Unavailable [facility] Primary Care Unavailable Gerardo Canas Consulting Unavailable Troy Ochoa Attending Unavailable Gerardo Canas Referring Unavailable Troy Ochoa Attending Unavailable [facility] Primary Care Unavailable Carlos Alberto Schultz Attending Unavailable Carlos Alberto Schultz Referring Unavailable [facility] Primary Care Unavailable PROBLEMS PROBLEMS DATE TYPE CONDITION / CODE ATTENDING STATUS SOURCE 04/14/2018 Unknown R92.2 - Inconclusive Gabriela Troy Active [facility]ogram / Community R92.2(ICD-10) Hospital Repository 04/14/2018 Unknown R93.89 - Abnormal Gabriela Troy Active [facility] findings on diagnostic Community imaging of other Hospital specified body Repository structures / R93.89(ICD-10) 04/12/2018 Unknown Z12.31 - Encounter for Gabriela Troy Active [facility] screening mammogram Community for malignant neoplasm Hospital of breast / Repository Z12.31(ICD-10) 04/04/2018 Unknown C34.90 - Malignant Gerardo Canas Active [facility] neoplasm of Community unspecified part of Hospital unspecified bronchus Repository or lung / C34.90(ICD-10) 04/04/2018 Unknown C34.32 - Malignant BerekethGerardo Active [facility] neoplasm of lower Community lobe, left bronchus or Hospital lung / C34.32(ICD-10) Repository 12/21/2017 Unknown N76.0 - Acute Alpha, Active [facility] vaginitis / [facility] N76.0(ICD-10) Hospital Repository 10/28/2017 Unknown M54.14 - Dossie, Carol Active [facility] Radiculopathy, D.C. [facility] thoracic region / Hospital M54.14(ICD-10) Repository 10/28/2017 Unknown M99.03 - Segmental and Dossie, Carol Active [facility] somatic dysfunction of [facility] lumbar region / Hospital M99.03(ICD-10) Repository 10/28/2017 Unknown M99.02 - Segmental and Dossie, Carol Active [facility] somatic dysfunction of D.C. [facility] thoracic region / Hospital M99.02(ICD-10) Repository 09/12/2017 Unknown R07.9 - Chest pain, Tuan, [place] Active [facility] unspecified / Community R07.9(ICD-10) Hospital Repository 10/12/2017 Unknown R94.31 - Abnormal Tuan, Ethan Active [facility] electrocardiogram Community [ECG] [EKG] / Hospital R94.31(ICD-10) Repository 08/10/2017 Unknown E55.9 - Vitamin D David, Tim Chi Active [facility] deficiency, Community unspecified / Hospital E55.9(ICD-10) Repository 08/10/2017 Unknown I10 - Essential David, Tim Chi Active [facility] (primary) hypertension Community / I10(ICD-10) Hospital Repository PROCEDURES PROCEDURES No Procedure Records FoundRESULTS RESULTS PROGRESS Observed: 04/20/2018 Status: COMPLETED Source: [place] 7:57 PM [facility] REPOSITORY HNO ID: [id number] Author: Dayana Cohen Service: (none) Author Type: Physician Type: Progress Notes Filed: 04/21/2018 5:51 AM Note Text: FOLLOW UP VISIT - ENDOSCOPY NAME: Kathy Ocasio [facility] NO.: [id number] DATE OF SERVICE: April 20, 2018 : 1950 REFERRING PHYSICIAN: MD Kathy Lowe Chi is a patient I am following for abdominal pain and rectal bleeding. The patient is a 68 year old F who presents with a complaint of abdominal pain and hematochezia. The patient noted onset of abdominal cramping one half days previously and then noticed bloody diarrhea. She denied dizziness or other diffuse complaints. She presented emergency department. She was noted to have a normal white blood cell count. Digital exam was positive for occult blood. The patient has not had enough stool since presentation the hospital to send for cultures. CT scan of the abdomen and pelvis was obtained which demonstrated transverse colon to descending colon thickening consistent with colitis. This did not seem to be consistent with arterial occlusive colitis. One month previously, the patient had epigastric symptoms evaluated by her primary care provider. She had a stool test she recalls for H. pylori which was positive and treated with antibiotics. She completed those antibiotics at least 3 weeks previously. She notes no other recent antibiotic use. She notes no unusual travel or unusual foods or other people at home with similar illnesses. She does note a prior history again of epigastric complaints. She has never had previous upper endoscopy. She carries a diagnosis of irritable bowel syndrome and fibromyalgia. Interestingly she also has a right sided hydronephrosis on CT scan with a suspicion for a renal stone but is not complaining of right-sided symptoms. The patient had stool cultures which were negative but did have Hemoccult positive stools and fecal WBCs were positive. I saw the patient consultation on March 25, 2018. I performed upper and lower endoscopy on March 27, 2018. The patient was found to have moderate gastritis, small hiatal hernia, moderate to significant distal esophagitis. Interestingly, colonoscopy was completely unremarkable.. Pathology demonstrated: MICROSCOPIC DIAGNOSIS A. Jejunum, biopsy: No pathologic diagnosis. B. Gastric antrum, biopsy: Rare benign glandular epithelium. C. Distal esophagus, biopsy: Focal changes of reflux. Gastroesophageal junction with mild chronic inflammation. D. Mid esophagus, biopsy: Benign fragments of superficial squamous mucosa. E. Terminal ileum, biopsy: No pathologic diagnosis. F. Random biopsy: No pathologic change. G. Splenic flexure, biopsy: No pathologic diagnosis. The patient noted continued cramping abdominal issues and epigastric complaints on her first follow-up visit. She was discharged on Protonix, Flagyl, and Cipro. She still notes loose stools. She denies seeing current blood in her stools. She returns now 2 weeks later. She now states she is otherwise doing better her bowels are returning to normal and the cramping has improved. VITALS: Blood pressure 152/70, pulse 76, weight 65.3 kg (144 lb). On examination, the abdomen is benign. Assessment IMPRESSION: Rectal bleeding, abdominal cramping, likely nonspecific gastroenteritis PLAN: If the patient notes any problems or changes in bowel function, the patient should contact me immediately. Otherwise I recommend follow up endoscopy as needed. I recommend she continue her proton pump inhibitor given the degree of gastritis and distal esophagitis. She should follow up as needed. Diagnoses: (K62.5) Rectal bleeding (primary encounter diagnosis) (D50.9) Iron deficiency anemia, unspecified iron deficiency anemia type (K92.1) Hematochezia Return to Clinic: The patient is instructed to follow- up with me as needed. Dayana Cohen MD CYTOSPIN ON FLUID Observed: 04/20/2018 Status: F Source: [place] 2:00 PM [facility] REPOSITORY Patient: KATHY OCASIO : 1950 (68/F) Acct Num: [id number] Phys: Antoine CAROLINA,Anjum Unit Num: [id number] Loc: LABSPEC Specimen: [id number] Received: 04/21/18819 Spec Type: CYSPIN FL TISSUES 1 TISSUES: Urine COMMENT The findings are nonspecific and could represent a variety of conditions including infection, urolithiasis, instrumentation and low grade urothelial neoplasm. Clinical correlation is necessary. CYTOLOGY GROSS Received is 60 ml of clear yellow fluid labeled with the patient's name and and designated per the requisition as urine. Submitted for cytology preparation. / 04/21/18 TC:5 CPT: 55332 CYTOLOGY STUDY Slides are reviewed. DIAGNOSIS CYTOLOGY Urine for cytology (cytospin): Rare atypical urothelial cells present. Rare fungal organisms consistent with rhonda. AM:nuris 04/24/18 HEADER OPERATION: Not noted PRE-OP DIAGNOSIS: Hematuria TISSUE SUBMITTED: Urine for cytology Signed Earnest Fall 04/24/18 <signature on file> Performed By: #### PCYSPIN #### [facility] [address] [place], [address] CYTOLOGY, BODY FLUID / Collected: 04/20/2018 Status: F Source: [place] 2:00 PM [facility] REPOSITORY Order Comment: Specimen Source: URINE TYPE CODE TESTS RESULT OUT OF RANGE REFERENCE UNITS LAB L350.1000 SEE Normal PATHOLOGY CYTOLOGY,BF REPORT /CSF Result Comment: Specimen submitted to Anatomical Pathology Department for testing. Performed By: #### L350.1000 #### [facility] [address] [place], [address] CNOV Observed: 04/20/2018 Status: COMPLETED Source: [place] 10:50 AM [facility] REPOSITORY Office Visit (GENSWS) KATHY OCASIO ([id number]) 1950 F Date Time Provider Department 04/20/18 10:50 AM DAYANA COHEN During your visit today, we recorded the following information about you: Pulse Blood pressure Weight 76/minute 152/70 65.3 kg Dayana Cohen MD 04/21/2018 5:51 AM Signed FOLLOW UP VISIT - ENDOSCOPY NAME: Kathy Ocasio CLINIC NO.: [id number] DATE OF SERVICE: April 20, 2018 : 1950 REFERRING PHYSICIAN: Tim Alexis MD Kathy is a patient I am following for abdominal pain and rectal bleeding. The patient is a 68 year old F who presents with a complaint of abdominal pain and hematochezia. The patient noted onset of abdominal cramping one half days previously and then noticed bloody diarrhea. She denied dizziness or other diffuse complaints. She presented emergency department. She was noted to have a normal white blood cell count. Digital exam was positive for occult blood. The patient has not had enough stool since presentation the hospital to send for cultures. CT scan of the abdomen and pelvis was obtained which demonstrated transverse colon to descending colon thickening consistent with colitis. This did not seem to be consistent with arterial occlusive colitis. One month previously, the patient had epigastric symptoms evaluated by her primary care provider. She had a stool test she recalls for H. pylori which was positive and treated with antibiotics. She completed those antibiotics at least 3 weeks previously. She notes no other recent antibiotic use. She notes no unusual travel or unusual foods or other people at home with similar illnesses. She does note a prior history again of epigastric complaints. She has never had previous upper endoscopy. She carries a diagnosis of irritable bowel syndrome and fibromyalgia. Interestingly she also has a right sided hydronephrosis on CT scan with a suspicion for a renal stone but is not complaining of right-sided symptoms. The patient had stool cultures which were negative but did have Hemoccult positive stools and fecal WBCs were positive. I saw the patient consultation on March 25, 2018. I performed upper and lower endoscopy on March 27, 2018. The patient was found to have moderate gastritis, small hiatal hernia, moderate to significant distal esophagitis. Interestingly, colonoscopy was completely unremarkable.. Pathology demonstrated: MICROSCOPIC DIAGNOSIS A. Jejunum, biopsy: No pathologic diagnosis. B. Gastric antrum, biopsy: Rare benign glandular epithelium. C. Distal esophagus, biopsy: Focal changes of reflux. Gastroesophageal junction with mild chronic inflammation. D. Mid esophagus, biopsy: Benign fragments of superficial squamous mucosa. E. Terminal ileum, biopsy: No pathologic diagnosis. F. Random biopsy: No pathologic change. G. Splenic flexure, biopsy: No pathologic diagnosis. The patient noted continued cramping abdominal issues and epigastric complaints on her first follow-up visit. She was discharged on Protonix, Flagyl, and Cipro. She still notes loose stools. She denies seeing current blood in her stools. She returns now 2 weeks later. She now states she is otherwise doing better her bowels are returning to normal and the cramping has improved. VITALS: Blood pressure 152/70, pulse 76, weight 65.3 kg (144 lb). On examination, the abdomen is benign. Assessment IMPRESSION: Rectal bleeding, abdominal cramping, likely nonspecific gastroenteritis PLAN: If the patient notes any problems or changes in bowel function, the patient should contact me immediately. Otherwise I recommend follow up endoscopy as needed. I recommend she continue her proton pump inhibitor given the degree of gastritis and distal esophagitis. She should follow up as needed. Diagnoses: (K62.5) Rectal bleeding (primary encounter diagnosis) (D50.9) Iron deficiency anemia, unspecified iron deficiency anemia type (K92.1) Hematochezia Return to Clinic: The patient is instructed to follow- up with me as needed. Dayana Cohen MD Referring Provider: TIM ALEXIS CHI [[id number]] Allergies As of Date: 04/20/2018 Noted Allergy Reaction CEPHALEXIN 07/02/2008 5 - Intolerance CITALOPRAM 04/24/2013 1 - Mental Status Change LYRICA (PREGABALIN) 10/10/2008 MORPHINE 03/23/2016 16 - Unknown Date Reviewed: 04/20/2018 Reviewed by: Annamarie Moe RN - Fully Assessed Reason for Visit: Post Op [174] Primary Visit Diagnosis:Rectal bleeding [K62.5] Other Visit Diagnoses:Iron deficiency anemia, unspecified iron deficiency anemia type [D50.9] Hematochezia [K92.1] Prescriptions as of 04/20/2018 Sig: ATORVASTATIN 10 MG TABLET Take 10 mg by mouth once ciera* ERGOCALCIFEROL (VITAMIN D2) 5* EVERY MONTH PANTOPRAZOLE 40 MG TABLET,DEL* PRAVASTATIN 40 MG TABLET ALPRAZOLAM 0.5 MG TABLET Take 1 tablet by mouth at bed* FELODIPINE ER 10 MG TABLET,EX* Take 1 tablet by mouth once d* LEVOTHYROXINE 50 MCG TABLET Take 1 tablet by mouth once d* ALBUTEROL SULFATE HFA 90 MCG/* Inhale 2 Puffs as instructed * SELENIUM SULFIDE 2.5 % SHAMPOO Apply 1 application to affect* IBUPROFEN 200 MG CAPSULE Take by mouth. VITAMIN E 400 UNIT TABLET Take by mouth. 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 Routine Gynecological Examination [Z01.419] INVALID FOR* Class: Chronic More... Asthma [J45.909] INVALID FOR* Adj react-emotion NEC [F43.29] INVALID FOR* Marital conflict [Z63.0] INVALID FOR* Depression [F32.9] INVALID FOR* Hematoma [T14.8XXA] INVALID FOR* Sprain of neck [S13.9XXA] INVALID FOR* Cervicalgia [M54.2] INVALID FOR* Abnormal mammogram, unspecified [R92.8] INVALID FOR* Capsulitis [M77.9] INVALID FOR* Anxiety [F41.9] INVALID FOR* Rhinitis [J31.0] INVALID FOR* Eustachian catarrh [H68.009] INVALID FOR* Hearing loss [H91.90] INVALID FOR* Tinnitus [H93.19] INVALID FOR* Screening for intestinal cancer [Z12.10] INVALID FOR* Bereavement, uncomplicated [Z63.4] INVALID FOR* Letter Text Encounter Status:Closed by DAYANA COHEN MD on 04/21/18 BREAST LIMITED Observed: 04/14/2018 Status: F Source: [place] UNILATERAL 1:18 PM [facility] REPOSITORY [facility] Imaging Services [address] [place] [address] Breast Limited Unilateral MR#: [id number] Acct: [id number] Name: KATHY OCASIO Rep #: [id number] : 1950 F 68 From: Vernon Skinner MD PCP: Yadira Alston MD Status: REG CLI Study: Breast Limited Unilateral Date of Exam: 04/14/18 Exam# [id number] Ordering Dr: Troy Ochoa MD STUDY: ULTRASOUND BREAST - RIGHT REASON FOR EXAM: Female, 68 years old. Abnormal screening mammogram. TECHNIQUE: Axial and longitudinal images of the RIGHT breast were performed with a high resolution ultrasound transducer. COMPARISON: Comparison is made with prior mammogram done earlier today. FINDINGS: RIGHT Breast: There is a 1.1 cm x 1.0 cm x 0.5 cm cyst at the 12:00 position breast a 1 cm from the nipple. US/Breast Limited Unilateral IMPRESSION: There is a 1.1 cm x 1.0 cm x 0.5 cm cyst at the 12:00 position of the breast at 1 cm from nipple. ASSESSMENT CATEGORY: BIRADS Category 2: Benign. A letter regarding these results will be sent to the patient by the facility within 30 days. Electronically Signed: Vernon Skinner MD at 14:54 EST Tel [phone], Service support , CC: Yadira Alston MD; Troy Ochoa MD Seam Taper Machine: Signed DIAG MAMM W/CAD, Observed: 04/14/2018 Status: F Source: [place] BILAT 1:18 PM [facility]POS[facility] Imaging Services [address] [place] [id number] DIAG MAMM W/CAD, BILAT MR#: [id number] Acct: [id number] Name: KATHY OCASIO Rep #: [id number] : 1950 F 68 From: Vernon Skinner MD PCP: Yadira Alston MD Status: [facility] CLI Study: DIAG MAMM W/CAD, BILAT Date of Exam: 04/14/18 Exam# [id number] Ordering Dr: Troy Ochoa MD MAMMOGRAPHY - BILATERAL DIAGNOSTIC REASON FOR EXAM: Female, 68 years old. Right breast nodule seen on a recent CT scan of the thorax. PERTINENT HISTORY: Aunt with breast cancer. Remote left excisional breast biopsy. TECHNIQUE: Digital bilateral breast derrick (3D mammographic acquisition) in the CC and MLO projections. 2-D mediolateral oblique (MLO) and craniocaudad (CC) views of both breasts were obtained. CAD: Full Field Digital Mammography with Computer Added Detection was performed. COMPARISON: Comparison is made with prior outside examination dated March 29, 2016. FINDINGS: Breast Composition: There are scattered areas of fibroglandular density. There is a 1.3 cm x 1.5 cm well-defined nodular density in the upper retroareolar region of the left breast. Correlation with ultrasound is recommended. No other significant abnormalities are identified. BI/DIAG MAMM W/CAD, BILAT IMPRESSION: 1.3 cm x 1.5 cm well-defined nodular density in the upper retroareolar region of the right breast as described. Correlation with ultrasound is recommended. ASSESSMENT CATEGORY: BIRADS Category 0: Incomplete. Need additional imaging evaluation. A letter regarding these results will be sent to the patient by the facility within 30 days. Approximately 10% of breast cancers are not detected by mammography. A normal mammogram should not delay biopsy of a clinically suspicious abnormality. Electronically Signed: Vernon Skinner MD at 15:04 EST Tel [phone], Service support , CC: Yadira Alston MD; Troy Ochoa MD Seam Taper Machine: Signed SURGERY VISIT REPORT Observed: 04/12/2018 Status: F Source: [place] 6:03 PM [facility] REPOSITORY [facility] [address] [place] [address] OFFICE VISIT Date of Service: 04/12/18 MR#: [id number] Acct: [id number] Name: KATHY OCASIO Rep #: [id number] : 1950 Provider: Troy Ochoa MD Age/Sex: 68/F Location: [facility] Status: Signed Intake Vital Signs04/12/18 Body Mass Index (BMI) 26.6 04/12/18 Height 5 ft 1 in 04/12/18 Weight: 142 lb Intake Visit Reasons: L Breast Cyst Chief Complaint: F/u for lung cancer. Coat Finisher Required: No Is patient in pain?: No Allergies doxycycline Allergy (Verified 04/12/18 15:24) Itching cephalexin Adverse Reaction (Verified 04/12/18 15:24) Other citalopram Adverse Reaction (Verified 04/12/18 15:24) Other metoclopramide [From Reglan] Adverse Reaction (Verified 04/12/18 15:24) Other morphine Adverse Reaction (Verified 04/12/18 15:24) Low blood pressure pregabalin Adverse Reaction (Verified 04/12/18 15:24) Other Medications ALPRAZolam [Xanax] 0.5 mg PO QHS PRN 02/13/15 [History Confirmed 04/12/18] Felodipine [Plendil] 10 mg PO DAILY 02/13/15 [History Confirmed 04/12/18] Levothyroxine [Synthroid] 50 mcg PO DAILY 02/13/15 [History Confirmed 04/12/18] Atorvastatin Calcium [Lipitor] 10 mg PO QHS 08/17/17 [History Confirmed 04/12/18] Albuterol Sulfate [Ventolin Hfa] 1 - 2 puff INHALATION PRN PRN 03/24/18 [History Confirmed 04/12/18] Ergocalciferol (Vitamin D2) [Drisdol] 50,000 unit PO QMONTH 03/24/18 [History Confirmed 04/12/18] Ibuprofen/Diphenhydramine Cit [Advil Pm Caplet] 2 tab PO QHS 03/24/18 [History Confirmed 04/12/18] Ciprofloxacin [Cipro] 500 mg PO BID #20 tab 03/28/18 [Rx Confirmed 04/12/18] Pantoprazole Sodium [Protonix] 40 mg PO DAILY #30 tab 03/28/18 [Rx Confirmed 04/12/18] PFSH Medical History Fibromyalgia (Chronic) IBS (irritable bowel syndrome) (Chronic) Surgical History H/O cataract extraction (Resolved) S/P appendectomy (Resolved) S/P bilateral foot surgery (Resolved) S/P breast biopsy, bilateral (Resolved) S/P cholecystectomy (Resolved) S/P partial lobectomy of lung (Resolved) S/P removal of ovarian cyst (Resolved) Family History Mother Diabetes Lung cancer CHF (congestive heart failure) Hypertension Father CHF (congestive heart failure) Hypertension Brother Hypertension Sister Hypertension Diabetes Aunt Breast cancer Other Heart disease Social History Smoking Status: Former smoker alcohol intake: never substance use type: does not use caffeine: Yes what type of physical activity do you participate in: none seatbelt use: always do you feel safe at home: Yes additional social history: -Dayana Patient is retired HPI HPI HPI: KATHY OCASIO, is a 68 F who presents to the office today for surgical consultation regarding a right breast abnormality. The patient was referred by oncologist Dr Canas and a written copy of my surgical consult and recommendations were returned to him 68-year-old female. A0. Menarche at age 11. First child born when she was 16. She reminds me that I have assisted her in the past with breast surgery. I am able to see that stereotactic breast biopsy was done on the right in 2010. Unfortunately cannot get to those pathology results. Family history is only notable for an aunt who had breast cancer. 3 years ago the patient had left pulmonary resection for lung cancer. She has not had breast imaging since 2016. A most recent chest CT scan performed at the [facility] on March 30, 2018 showed among other things a right central breast retroareolar 12 mm small circumscribed oval nodular density. Follow-up was recommended. At this point the patient had not to date wanted follow-up imaging and asked that I evaluate her. ROS General General: No weight change, appetite, fatigue, colon cancer, breast cancer or weakness HEENT HEENT: Yes eye surgery; no difficulty swallowing, eye injury, swollen glands or hoarseness Endo Endocrine: Yes thyroid disease; no diabetes mellitus, thyroid cancer, Hair loss, heat intolerance or cold intolerance Skin Skin: No rash or changing moles Breast Breast: No left breast lump, right breast lump, nipple discharge, breast pain, abnormal mammogram, abnormal US or breast enlargement Additional Details: abnormal chest CT right breast Musc Musculoskeletal: Yes back problems and arthritis; no rheumatoid arthritis, gout or joint pain Cardio Cardiovascular: Yes high blood pressure; no murmur, pacemaker, heart disease, atrial fibrillation, heart attack, heart stent, palpitations, shortness of breat with exertion or chest pain Psych Psychiatric: Yes anxiety; no depression or hearing voices Resp Respiratory: Yes shortness of breath, No sleep apnea, No cough, Yes COPD, Yes asthma, No emphysema, No wheezing Gastro Gastrointestinal: No abdominal pain, No nausea or vomiting, No diarrhea, No constipation, No blood in stool, No acid reflux, No hemorrhoids, No ulcers, No gallbladder problem, No black,tarry stools Jaspreet Hematologic: No blood thinners, No blood disorders, No bleeding, No anemia, No blood clots Neuro Neurologic: No system reviewed and no additional complaints, except as docu, No as per HPI, No abnormal walking, No abnormal hearing, No abnormal movements, No abnormal speech, No behavioral changes, No burning sensations, No confusion, No seizure-like activity, No unsteadiness, No dizziness, No localized weakness, No frequent falls, No headache(s), No lack of coordination, No loss of vision, No memory loss, No numbness, No other visual disturbances, No radiating pain, No restless legs, No sensory deficit, No fainting, No tingling, No tremor(s), No weakness, No other Exam Chest Breast Palpation: No nipple discharge Other: Right breast: No focal mass. No nipple discharge. No axillary clavicular adenopathy I performed ultrasound inspection and in the upper outer right breast periareolar I was able to identify a 1.2 cm diameter density. This appear to have a marking clip in place. Photographs were obtained. Left breast: No focal mass. No nipple discharge. No axillary clavicular adenopathy Cardio Heart Sounds: no murmurs Assessment AND Plan Problems 1. Abnormal CT of the chest R93.89 Plan Based upon the abnormal chest CT scan I have been able to encourage the patient to pursue bilateral breast mammography and right breast ultrasonography. I suspect that this area is an area that has been previously stereotactically biopsied. Fortunately currently I have a lower level of suspicion of malignancy. The patient seemed reassured by that and therefore was willing to pursue the appropriate imaging. She has had an opportunity to ask and have questions answered. Once we obtain that information we will recontact the patient with further surgical instructions. I very much appreciate the ongoing opportunity of assisting with her surgical care CC: Dr. Floresita Ochoa M.D., F.A.C.S. Orders Orders: Plan Detail Goals Decrease thoracic pain and inflammation Increase ROM Barriers Previous surgery Coding Level of Care Code Exp prob focused,strt fwd Diagnoses Abnormal CT of the chest R93.89 04/12/18 1803 <Electronically signed by Troy Ochoa MD> Date Troy Ochoa MD Cosigner Signature: Date (if applicable) CC: Gerardo Canas MD ONCOLOGY VISIT REPORT Observed: 04/05/2018 Status: F Source: [place] 1:37 PM [facility] REPOSITORY [facility] [address] [place] [address] [place] [address] OFFICE VISIT Date of Service: 04/05/18 1310 MR#: [id number] Acct: [id number] Name: KATHY OCASIO Rep #: [id number] : 1950 From: Gerardo Canas MD Age/Sex: 68/F Location: [facility] Status: Signed with Addenda ADDENDUM by Gerardo Canas MD on 04/05/18 at 1337 04/05/18 1337 <Electronically signed by Gerardo Canas MD> Date Gerardo Canas MD cc: Yadira Alston MD * Signed Subjective - Date of Service Date of Service:: 04/05/18 - Chief Complaint F/u for lung cancer. 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 She is on observation, comes in for follow up. Was in the hospital for GI bleed and colitis about a week ago. - Past Medical/Social History Past Medical History Past Medical History: Heart disease,Hypertension,Thyroid disease Other Past Medical History: VERTIGO Cancer: Lung cancer Past Surgical History Surgical: Appendectomy,Cholecystectomy,Hysterectomy Other Surgical History: LUNG SURGERY FOOT SURGERY CYST REMOVED Family History Paternal Past Medical History: Heart disease Maternal Past Medical History: Diabetes mellitus,Heart disease Maternal History of Cancer: Lung cancer Social History Smoking Status Former smoker Review of Systems Constitutional:: Denies: Fever, Sweats, Weight loss, Appetite change, Chills Cardiovascular:: Denies: Chest pain, Palpitations, Dyspnea on exertion, Orthopnea, PND, Shortness of breath Respiratory: Denies: Cough, Hemoptysis, Shortness of Breath, Wheezing Gastrointestinal:: Denies: Abdominal pain, Nausea, Vomiting, Diarrhea, Constipation, Hematochezia Genitourinary: Denies: Dysuria, Hematuria, 15, Flank pain Musculoskeletal:: Denies: Back pain, Myalgia, Arthralgia Skin: Denies: Rash, Skin Changes, Wounds Neurological:: Denies: Headache, Dizziness, Visual changes, Tinnitus, Hearing loss Psychiatric: Denies: Anxiety, Depression, Homicidal Ideations, Suicidal Ideations Vital Signs Height 5 ft 1 in Weight: 63.957 kg Weight in Pounds 141.0 lbs Pulse Ox 93 - Physical Exam General: Alert, Oriented x3, No apparent distress HEENT: Atraumatic, PERRLA, EOMI, Normocephalic Oropharynx:: Dry mucosa Neck:: Supple, Trachea midline. Negative for: JVD, bilateral Cardiac:: Regular rate, Regular rhythm, Normal S1, Normal S2. Negative for: Murmur Lungs: Clear to auscultation, Excusion symmetrical. Negative for: Rhonchi, Wheezes Abdomen:: Bowel sounds x 4, Soft, Non-tender, Non-distended. Negative for: Hepatosplenomegaly Extremities:: Negative for: Cyanosis, Edema Neurological: Neuro grossly intact Skin:: Negative for: Lesions, Rash, Petechiae, Ecchymosis Psychiatric:: Appropriate affect, Euthymic Lymphatics:: Negative for: Cervical lymphadenopathy, Supraclavicular lymphadenopathy, Axillary lymphadenopathy Diagnostic Data: 03/30/[address]/Chest WITH Contrast IMPRESSION: No acute cardiopulmonary process. There is no evidence of primary malignancy or lymphadenopathy. Centrilobular emphysema. Small sliding hiatal hernia. Minimal coronary atherosclerosis. Mild pancreatic atrophy. Electronically Signed: Dayana Quinn, at 11:52 EST Assessment and Plan Left non-small cell lung cancer stage IA, squamous cell type, no evidence of disease clinically. Discussed disease status with patient. Cystic/density R breast. Pt claims Dr. Ochoa knows her and has had so many breast US. Plan is to continue observation. Refer to Dr. Ochoa for R breast density. Return to clinic 1 year with CBC, CMP, CT chest plus Primary Care Provider: Tim Alexis Referring Provider: - Problem List (1) Non-small cell lung cancer (NSCLC) Status: Chronic Qualifiers: Laterality: left (2) Breast density Status: Chronic Code Visit Office Visits / Consults: [id number] OV L3 Est 04/05/18 1335 <Electronically signed by Gerardo Canas MD> Date Gerardo Canas MD Cosigner Signature: Date (if applicable) CC: Yadira Alston MD PROGRESS Observed: 04/04/2018 Status: COMPLETED Source: [place] 9:11 PM [facility] REPOSIT[facility] HNO ID: [id number] Author: Dayana Cohen Service: (none) Author Type: Physician Type: Progress Notes Filed: 04/04/2018 9:16 PM Note Text: OPERATIVE NOTATION FOR [facility] SURGICAL PROCEDURE. March 27, 2018 Kathy Ocasio 1950 [id number] female PROCEDURE: EGD WITH BIOPSY - [id number] and COLONOSCOPY WITH BIOPSY - [id number] SURGEON: Mike Cohen M.D. FACS MANAGER ACCOUNT MANAGEMENT: None DEPT: WQ PROVIDER: [id number] Cohen MD POS: [id number] DIAGNOSIS: (K92.1) Hematochezia (primary encounter diagnosis) ASA CLASS: 2 - mild FINDINGS: COMPLICATIONS: None PMHx - PAST MEDICAL HISTORY Diagnosis Date - Essential hypertension, benign - Fibromyalgia - Lung cancer (HCC) 01/2015 - Other and unspecified hyperlipidemia - PMH - PAST MEDICAL HISTORY OF POLIO - Thyrotoxicosis without mention of goiter or other cause COMORBIDITIES - Chronic Pulmonary and HTN Post Op Occurrences - None Wound Classification - Clean Contaminated Operative note dictated in the [facility] dictation system. Dayana Cohen MD PROGRESS Observed: 04/04/2018 Status: COMPLETED Source: [place] 7:24 PM [facility] [place] REPOSITORY O ID: [id number] Author: Dayana Cohen Service: (none) Author Type: Physician Type: Progress Notes Filed: 04/04/2018 7:31 PM Note Text: FOLLOW UP VISIT - ENDOSCOPY NAME: Kathy Ocasio [facility] NO.: [id number] DATE OF SERVICE: 04/04/2018 : 1950 REFERRING PHYSICIAN: Tim Alexis MD Kathy is a patient I am following for abdominal pain and rectal bleeding. The patient is a 68 year old F who presents with a complaint of abdominal pain and hematochezia. The patient noted onset of abdominal cramping one half days previously and then noticed bloody diarrhea. She denied dizziness or other diffuse complaints. She presented emergency department. She was noted to have a normal white blood cell count. Digital exam was positive for occult blood. The patient has not had enough stool since presentation the hospital to send for cultures. CT scan of the abdomen and pelvis was obtained which demonstrated transverse colon to descending colon thickening consistent with colitis. This did not seem to be consistent with arterial occlusive colitis. One month previously, the patient had epigastric symptoms evaluated by her primary care provider. She had a stool test she recalls for H. pylori which was positive and treated with antibiotics. She completed those antibiotics at least 3 weeks previously. She notes no other recent antibiotic use. She notes no unusual travel or unusual foods or other people at home with similar illnesses. She does note a prior history again of epigastric complaints. She has never had previous upper endoscopy. She carries a diagnosis of irritable bowel syndrome and fibromyalgia. Interestingly she also has a right sided hydronephrosis on CT scan with a suspicion for a renal stone but is not complaining of right-sided symptoms. The patient had stool cultures which were negative but did have Hemoccult positive stools and fecal WBCs were positive. I saw the patient consultation on March 25, 2018. I performed upper and lower endoscopy on March 27, 2018. The patient was found to have moderate gastritis, small hiatal hernia, moderate to significant distal esophagitis. Interestingly, colonoscopy was completely unremarkable.. Pathology demonstrated: MICROSCOPIC DIAGNOSIS A. Jejunum, biopsy: No pathologic diagnosis. B. Gastric antrum, biopsy: Rare benign glandular epithelium. C. Distal esophagus, biopsy: Focal changes of reflux. Gastroesophageal junction with mild chronic inflammation. D. Mid esophagus, biopsy: Benign fragments of superficial squamous mucosa. E. Terminal ileum, biopsy: No pathologic diagnosis. F. Random biopsy: No pathologic change. G. Splenic flexure, biopsy: No pathologic diagnosis. The patient notes cramping abdominal issues and epigastric complaints since the procedure. She was discharged on Protonix, Flagyl, and Cipro. She still notes loose stools. She denies seeing current blood in her stools VITALS: Blood pressure 116/64, pulse 100, height 156.2 cm (5' 1.5), weight 64.1 kg (141 lb 6.4 oz). On examination, the abdomen is benign. Assessment IMPRESSION: Rectal bleeding, abdominal cramping, likely nonspecific gastroenteritis PLAN: If the patient notes any problems or changes in bowel function, the patient should contact me immediately. Otherwise I recommend follow up endoscopy as needed. I recommend she continue her proton pump inhibitor given the degree of gastritis and distal esophagitis. Discussed with the patient was somewhat surprised that the colonoscopy imaging did return as no pathologic diagnosis on biopsy and appeared normal. My impression was given the fecal leukocytes are positive and the blood in her stool lungs her clinical symptoms as well as most likely going to be either an atypical bacterial infection or possibly a degree of viral gastroenteritis. In any event, I feel that her symptoms were indication of a nonspecific colitis picture. If the patient has additional bleeding or lower abdominal symptoms should contact me immediately. Otherwise, I would like her to follow- up with me in 1-2 months to assure that she is doing well and we would consider repeat endoscopy at that time. Diagnoses: (K62.5) Rectal bleeding (primary encounter diagnosis) (D50.9) Iron deficiency anemia, unspecified iron deficiency anemia type (K21.9) Gastroesophageal reflux disease without esophagitis Return to Clinic: The patient is instructed to follow- up with me as needed. Dayana Cohen MD CNOV Observed: 04/04/2018 Status: COMPLETED Source: [place] 1:40 PM [facility] REPOSITORY Office Visit (GENSWS) KATHY OCASIO ([id number]) 1950 F Date Time Provider Department 04/04/18 1:40 PM DAYANA COHEN [facility] During your visit today, we recorded the following information about you: Pulse Blood pressure Weight Height 100/minute 116/64 64.1 kg 1.562 m Dayana Cohen MD 04/04/2018 7:31 PM Signed FOLLOW UP VISIT - ENDOSCOPY NAME: Kathy Ocasio CLINIC NO.: [id number] DATE OF SERVICE: 04/04/2018 : 1950 REFERRING PHYSICIAN: MD Kathy Lowe Chi is a patient I am following for abdominal pain and rectal bleeding. The patient is a 68 year old F who presents with a complaint of abdominal pain and hematochezia. The patient noted onset of abdominal cramping one half days previously and then noticed bloody diarrhea. She denied dizziness or other diffuse complaints. She presented emergency department. She was noted to have a normal white blood cell count. Digital exam was positive for occult blood. The patient has not had enough stool since presentation the hospital to send for cultures. CT scan of the abdomen and pelvis was obtained which demonstrated transverse colon to descending colon thickening consistent with colitis. This did not seem to be consistent with arterial occlusive colitis. One month previously, the patient had epigastric symptoms evaluated by her primary care provider. She had a stool test she recalls for H. pylori which was positive and treated with antibiotics. She completed those antibiotics at least 3 weeks previously. She notes no other recent antibiotic use. She notes no unusual travel or unusual foods or other people at home with similar illnesses. She does note a prior history again of epigastric complaints. She has never had previous upper endoscopy. She carries a diagnosis of irritable bowel syndrome and fibromyalgia. Interestingly she also has a right sided hydronephrosis on CT scan with a suspicion for a renal stone but is not complaining of right-sided symptoms. The patient had stool cultures which were negative but did have Hemoccult positive stools and fecal WBCs were positive. I saw the patient consultation on March 25, 2018. I performed upper and lower endoscopy on March 27, 2018. The patient was found to have moderate gastritis, small hiatal hernia, moderate to significant distal esophagitis. Interestingly, colonoscopy was completely unremarkable.. Pathology demonstrated: MICROSCOPIC DIAGNOSIS A. Jejunum, biopsy: No pathologic diagnosis. B. Gastric antrum, biopsy: Rare benign glandular epithelium. C. Distal esophagus, biopsy: Focal changes of reflux. Gastroesophageal junction with mild chronic inflammation. D. Mid esophagus, biopsy: Benign fragments of superficial squamous mucosa. E. Terminal ileum, biopsy: No pathologic diagnosis. F. Random biopsy: No pathologic change. G. Splenic flexure, biopsy: No pathologic diagnosis. The patient notes cramping abdominal issues and epigastric complaints since the procedure. She was discharged on Protonix, Flagyl, and Cipro. She still notes loose stools. She denies seeing current blood in her stools VITALS: Blood pressure 116/64, pulse 100, height 156.2 cm (5' 1.5), weight 64.1 kg (141 lb 6.4 oz). On examination, the abdomen is benign. Assessment IMPRESSION: Rectal bleeding, abdominal cramping, likely nonspecific gastroenteritis PLAN: If the patient notes any problems or changes in bowel function, the patient should contact me immediately. Otherwise I recommend follow up endoscopy as needed. I recommend she continue her proton pump inhibitor given the degree of gastritis and distal esophagitis. Discussed with the patient was somewhat surprised that the colonoscopy imaging did return as no pathologic diagnosis on biopsy and appeared normal. My impression was given the fecal leukocytes are positive and the blood in her stool lungs her clinical symptoms as well as most likely going to be either an atypical bacterial infection or possibly a degree of viral gastroenteritis. In any event, I feel that her symptoms were indication of a nonspecific colitis picture. If the patient has additional bleeding or lower abdominal symptoms should contact me immediately. Otherwise, I would like her to follow- up with me in 1-2 months to assure that she is doing well and we would consider repeat endoscopy at that time. Diagnoses: (K62.5) Rectal bleeding (primary encounter diagnosis) (D50.9) Iron deficiency anemia, unspecified iron deficiency anemia type (K21.9) Gastroesophageal reflux disease without esophagitis Return to Clinic: The patient is instructed to follow- up with me as needed. Dayana Cohen MD Referring Provider: SELF [200] Allergies As of Date: 04/04/2018 Noted Allergy Reaction CEPHALEXIN 07/02/2008 5 - Intolerance CITALOPRAM 04/24/2013 1 - Mental Status Change LYRICA (PREGABALIN) 10/10/2008 MORPHINE 03/23/2016 16 - Unknown Date Reviewed: 04/04/2018 Reviewed by: Dayana Cohen - Fully Assessed Reason for Visit: Post Op [174] Cmt: f/u [facility] Primary Visit Diagnosis:Rectal bleeding [K62.5] Other Visit Diagnoses:Iron deficiency anemia, unspecified iron deficiency anemia type [D50.9] Gastroesophageal reflux disease without esophagitis [K21.9] Prescriptions as of 04/04/2018 Sig: ATORVASTATIN 10 MG TABLET Take 10 mg by mouth once ciera* ERGOCALCIFEROL (VITAMIN D2) 5* EVERY MONTH ALPRAZOLAM 0.5 MG TABLET Take 1 tablet by mouth at bed* FELODIPINE ER 10 MG TABLET,EX* Take 1 tablet by mouth once d* LEVOTHYROXINE 50 MCG TABLET Take 1 tablet by mouth once d* ALBUTEROL SULFATE HFA 90 MCG/* Inhale 2 Puffs as instructed * SELENIUM SULFIDE 2.5 % SHAMPOO Apply 1 application to affect* CALCIUM 500 MG TABLET Take one(1) tablet twice ciera* CIPROFLOXACIN 500 MG TABLET METRONIDAZOLE 500 MG TABLET PANTOPRAZOLE 40 MG TABLET,DEL* CONJUGATED ESTROGENS 0.625 MG* Use 1 g vaginally 3 times a W* PWAJWOSZWB-IMCWYSWXKR-CSZP VE* Apply 1 application to affect* PRAVASTATIN 40 MG TABLET LORAZEPAM 1 MG TABLET Take 30-45 min prior to proce* CALCIUM CARBONATE 500 MG CALC* Take 1 tablet by mouth as nee* GEMFIBROZIL 600 MG TABLET Take 1 tablet by mouth twice * IBUPROFEN 200 MG CAPSULE Take by mouth. METHYLCELLULOSE (LAXATIVE) 50* Take 1 tablet by mouth twice * NASAL DILATORS STRIPS Apply 1 application to affect* VITAMIN E 400 UNIT TABLET Take by mouth. OMEGA-3 FATTY ACIDS 1,000 MG * Take 1 capsule by mouth twice* Medication notes this encounter CONJUGATED ESTROGENS 0.625 MG/GRAM VAGINAL CREAM >> Gerardo Hartley [facility] 04/04/2018 1:55 PM >> GERARDO HARTLEY LPN TueApr 04, 2018 1:55 PM Please d/c ASJPDSXJRX-YNELRRUAKO-GNSS VERA-VITS A,D,AND E 20 %-3 % TOPICAL CREAM >> Gerardo Hartley [facility] 04/04/2018 1:55 PM >> GERARDO HARTLEY LPN TueApr 04, 2018 1:55 PM Please d/c LORAZEPAM 1 MG TABLET >> Gerardo Hartley [facility] 04/04/2018 1:59 PM >> GERARDO HARTLEY LPN TueApr 04, 2018 1:59 PM Please d/c CALCIUM CARBONATE 500 MG CALCIUM (1,250 MG) CHEWABLE TABLET >> Gerardo Hartley [facility] 04/04/2018 1:58 PM >> GERARDO HARTLEY LPN TueApr 04, 2018 1:58 PM Please d/c duplicate GEMFIBROZIL 600 MG TABLET >> Gerardo Hartley [facility] 04/04/2018 1:59 PM >> GERARDO HARTLEY LPN TueApr 04, 2018 1:59 PM Please d/c METHYLCELLULOSE (LAXATIVE) 500 MG TABLET >> Gerardo Hartley LPN 04/04/2018 1:59 PM >> GERARDO HARTLEY LPN TueApr 04, 2018 1:59 PM Please d/c NASAL DILATORS STRIPS >> Gerardo Hartley LPN 04/04/2018 1:59 PM >> GERARDO HARTLEY LPN Apr 04, 2018 1:59 PM Please d/c Problem List As Of Date 04/04/2018 Noted Resolved 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 Routine Gynecological Examination [Z01.419] INVALID FOR* Class: Chronic More... Asthma [J45.909] INVALID FOR* Adj react-emotion NEC [F43.29] INVALID FOR* Marital conflict [Z63.0] INVALID FOR* Depression [F32.9] INVALID FOR* Hematoma [T14.8XXA] INVALID FOR* Sprain of neck [S13.9XXA] INVALID FOR* Cervicalgia [M54.2] INVALID FOR* Abnormal mammogram, unspecified [R92.8] INVALID FOR* Capsulitis [M77.9] INVALID FOR* Anxiety [F41.9] INVALID FOR* Rhinitis [J31.0] INVALID FOR* Eustachian catarrh [H68.009] INVALID FOR* Hearing loss [H91.90] INVALID FOR* Tinnitus [H93.19] INVALID FOR* Screening for intestinal cancer [Z12.10] INVALID FOR* Bereavement, uncomplicated [Z63.4] INVALID FOR* Letter Text Encounter Status:Closed by DAYANA COHEN MD on 04/04/18 CHEST WITH CONTRAST Observed: 03/30/2018 Status: F Source: [place] 12:53 PM [facility] REPOSITORY [facility] Imaging Services [address] [place] [address] Chest WITH Contrast MR#: [id number] Acct: [id number] Name: KATHY OCASIO Rep #: [id number] : 1950 F 68 From: Dayana Quinn MD PCP: Yadira Alston MD Status: REG CLI Study: Chest WITH Contrast Date of Exam: 03/30/18 Exam# [id number] Ordering Dr: Gerardo Canas MD STUDY: CT CHEST WITH CONTRAST REASON FOR EXAM: Female, 68 years old. Lung cancer follow- up. Prior left lower lobectomy. RADIATION DOSAGE (If Supplied By Facility): DLP = ( 544.81 ) mGycm TECHNIQUE: Transaxial imaging was performed following intravenous administration of 100 ml of Isovue 300 contrast material. : Sagittal 2-D MPR. Individualized dose optimization techniques were used for this CT. COMPARISON: CT abdomen and pelvis 03/24/2018, CTA chest 08/17/2017, CT chest 03/30/2017 and 09/13/2016. FINDINGS: Supraclavicular: Normal thyroid, no mass or lymphadenopathy. Thoracic body wall soft tissues: There is a small circumscribed oval nodular focus within the right central breast, retroareolar, measuring about 12 mm. Nonspecific. This requires direct correlation with patient's mammographic history. If no recent mammography, a follow-up ultrasound of the right breast is recommended. Upper abdomen: Mild pancreatic atrophy. Osseous structures: No acute process. Mild kyphoscoliosis. Osteopenia with minimal thoracic spondylosis. Mediastinum: Small sliding hiatal hernia. Mild circumferential thickening of wall the distal 3rd of the esophagus may reflect the presence of reflux esophagitis. A few shotty lymph nodes are present in the mediastinum paratracheal, none pathologically enlarged. There is no evidence of hilar lymphadenopathy. Cardiovascular: Normal heart size without pericardial effusion. Mild calcifications present in the proximal LAD. Nondilated aorta with mild atherosclerosis, patent three-vessel cervical arch branching. Nondilated central pulmonary arteries with no evidence of large central pulmonary embolus. The study was not optimized for evaluation of peripheral pulmonary emboli but none is observed. Lungs: There is evidence of left lower lobectomy, postsurgical changes in the hilum, mild compensatory hyperinflation of the remaining left upper lobe. The left lung is clear. Right lung is clear. Each lung exhibits mild changes of centrilobular emphysema predominating at the apices. There is no evidence of endobronchial lesion. CT/Chest WITH Contrast IMPRESSION: No acute cardiopulmonary process. There is no evidence of primary malignancy or lymphadenopathy. Centrilobular emphysema. Small sliding hiatal hernia. Minimal coronary atherosclerosis. Mild pancreatic atrophy. Electronically Signed: Dayana Quinn, at 11:52 EST Tel , Service support , CC: Yadira Alston MD; Gerardo Canas MD Seam Taper Machine: Signed CBC W/DIFF, AUTOMATED Collected: 03/30/2018 Status: F Source: [place] 12:42 PM [facility] REPOSITORY Order Comment: Reason for Laboratory Test . TYPE CODE TESTS RESULT OUT OF RANGE REFERENCE UNITS LAB L100.1000 4.4-11.0 K/mm3 Normal WBC 6.7 LAB L100.1200 4.2-5.4 M/mm3 Normal RBC 4.55 LAB L100.1300 12.0-15.0 g/dl Normal HGB 13.6 LAB L100.1400 37-47 % Normal HCT 42.3 LAB L100.1500 81-99 fL Normal MCV 93.0 LAB L100.1600 27.0-32.0 pg Normal MCH 29.9 LAB L100.1700 32-36 g/gl Normal MCHC 32.2 LAB L100.1810 11.6-14.6 % Normal RDW CV 13.5 LAB L100.1820 35.1-43.9 fl High RDW SD 45.5 LAB L100.1900 150-450 K/mm3 Normal PLT 252 LAB L100.2000 6.2-12.0 fl Normal MPV 10.2 LAB L100.2100 47-70 % Normal NEUT% 66.1 LAB L100.2200 19-41 % Normal LY% 23.5 LAB L100.2300 0-10 % Normal MONO% 7.3 LAB L100.2400 0-5 % Normal EO% 2.7 LAB L100.2500 0-1 % Normal BASO% 0.3 LAB L100.2550 0.0-0.9 % Normal IM GRAN % 0.100 Result Comment: IG% - Immature Granulocytes (promyelocytes, myelocytes and metamyelocytes) > 1% indicates that a LEFT SHIFT is Present. LAB L100.2620 2.0-7.7 X10 3/uL Normal Absolute Neut 4.4 LAB L100.2720 0.83-4.51 X10 3/ul Normal Absolute Lymph 1.57 Performed By: #### L100.0100 #### [facility] Laboratory [address] [place], [address] COMPREHENSIVE METABOLIC Collected: 03/30/2018 Status: F Source: [place] [facility] 12:42 PM [facility] REPOSITORY Order Comment: Reason for Laboratory Test . TYPE CODE TESTS RESULT OUT OF RANGE REFERENCE UNITS LAB L501.0100 74-106 mg/dL High GLU 144 Result Comment: Fasting Glucose result greater than or equal to 126 mg/dL suggests DIABETES MELLITUS per A.D.A. criteria. Please note revised GLUCOSE reference range effective 2017. LAB L501.1000 7-18 mg/dL Normal BUN 10 LAB L501.1100 0.55-1.02 mg/dL Normal CREAT,SERUM 0.91 Result Comment: The validity of the calculated GFR AND GFRAA in patients over 70 years has not been determined. Clinical correlation is essential. LAB L501.1110 >60 mL/min Normal EST GFR 65 Result Comment: Non- GFR Calc LAB L501.1115 >60 mL/min Normal EST GFR - AA 79 Result Comment: GFR Calc LAB L501.1300 10-20 RATIO Normal BUN/CRE 11.0 LAB L501.1500 6.4-8.2 g/dL T Normal PROT 7.4 LAB L501.1800 3.2-5.0 g/dL Normal ALB 3.6 LAB L501.1950 2.2-4.2 g/dL Normal GLOB 3.8 LAB L501.2000 0.9-2.4 RATIO Normal A/G 0.9 LAB L501.2200 8.5-10.1 mg/dL CA Normal 8.6 LAB L501.4100 15-37 U/L High AST 62 LAB L501.4305 45-117 U/L Normal ALK P 85 LAB L501.4405 13-56 U/L High ALT 77 LAB L501.4600 0.20-1.00 mg/dL T Normal BILI 0.30 LAB L501.5300 136-145 mmol/L NA Normal 142 LAB L501.5600 3.5-5.1 mmol/L K Normal 3.5 LAB L501.5900 98-107 mmol/L CL Normal 107 LAB L501.6100 21.0-32.0 mmol/L Normal CO2 28.0 LAB L501.6200 5-15 Normal GAP 7 Performed By: #### L500.4050 #### [facility] Laboratory [address] [place], [address] DISCHARGE SUMMARY Observed: 03/28/2018 Status: F Source: [place] 11:32 AM [facility] REPOSITORY [facility] Medical Records Department [address] [place] [address] Discharge Summary 03/28/18 1122 MR#: [id number] Acct: [id number] Name: KATHY OCASIO Rep #: [id number] : 1950 68 From: Courtney Rodgers MD PCP: Yadira Alston MD Status: ADM IN Location: [place] [address] Discharge Date and Diagnosis - Problem List Patient Problems: Active and Suspected Problems (Last Reviewed 12/20/17 @ 13:48 by Carissa Falcon) Lower gastrointestinal bleeding (Acute) Left sided colitis (Acute) Date of Admission: 03/24/18 Date of Discharge: 03/28/18 - Primary Discharge Diagnosis Active and Suspected Problems (Last Reviewed 12/20/17 @ 13:48 by Carissa Falcon) #1 acute colitis of the distal transverse and descending colon. #2 gastritis/reflux esophagitis. #3 hypokalemia. #4 persistent right-sided hydronephrosis. - Secondary Discharge Diagnosis Chronic Problems (Last Reviewed 12/20/17 @ 13:48 by Carissa Falcon) Fibromyalgia (Chronic) IBS (irritable bowel syndrome) (Chronic) Thoracic neuritis (Chronic) Segmental and somatic dysfunction of lumbar region (Chronic) Segmental and somatic dysfunction of thoracic region (Chronic) Thoracic back pain (Chronic) Non-small cell lung cancer (NSCLC) (Chronic) Acquired hypothyroidism (Chronic) Benign essential HTN (Chronic) Hypertriglyceridemia (Chronic) Odynophagia (Chronic) Hospital Course and Treatment Imaging Results: Clinical Impression(s) from Imaging Studies Abdomen/Pelvis CT 03/24/18 17:03 IMPRESSION: There is persistent right-sided hydronephrosis. There is a suggestion of a possible focus of punctate stone or other potentially intraluminal material infection or mass within the distal right ureter image #83 of the axial views. It is at this level that there is abrupt narrowing of the right ureter. Recommend consideration for follow-up urology study consideration for urogram. There is a decompressed mildly thick-walled appearance of the colon from the distal transverse colon to the descending colon. Findings are suspicious for mild colitis. Status post cholecystectomy. Status post hysterectomy. Diverticulosis no visualized diverticulitis. Electronically Signed: Elizabet Quinones MD at 19:17 EST Tel , Service support , Dr. Keith, general surgery. Dr. Schultz, urology. Operations: None Procedures: Colonoscopy, EGD Summary of Care Provided: Patient seen and examined on the day of discharge and appeared to be stable to be discharged home. Her abdominal pain significantly improved. She has no more hematochezia. Denied nausea or vomiting. She has been tolerating her diet. Her vital signs are stable. This is a 68 years old female patient presented to the emergency room because of lower abdominal pain and rectal bleeding, found to have findings consistent with acute colitis of the transverse and descending colon and also found to have right hydronephrosis on CT scan abdomen. #1 acute colitis of the distal transverse and descending colon: Presumed to be due to viral etiology. She was treated with IV fluids, IV ciprofloxacin and Flagyl. Stool for C. difficile was negative. Stool for enteric pathogen was negative as well. With treatment, patient symptoms improved and she was able to tolerate regular diet. Patient was discharged home on 10 days of ciprofloxacin and Flagyl. #2 lower GI bleed/gastritis/reflux esophagitis: Secondary to above. Her hematocrit and hemoglobin remained stable throughout admission. Upper EGD revealed gastritis and mildly severe reflux esophagitis. Colonoscopy revealed no evidence of active bleeding, revealed sigmoid diverticulosis, otherwise normal. She was discharged on Protonix. Gastric and colonic biopsies taking, pathology result is pending. Plan to follow- up with general surgery in 1 week regarding the results of the biopsies. #3 hypokalemia: Replaced and corrected per protocol. #4 persistent right-sided hydronephrosis: CT scan abdomen and pelvis with contrast revealed persistent right-sided hydronephrosis, possible punctate stone or mass within the distal right ureter. Her kidney function was normal. Urinalysis revealed no evidence of acute cystitis. Urology was consulted and recommended follow-up as outpatient with plan to repeat CT scan abdomen in the near future. Patient discharged home in a stable medical condition, discharged on Protonix, discharged on 10 days of ciprofloxacin and Flagyl for acute colitis, plan to follow-up with general surgery in 1 week for gastric and colonic biopsy results, follow-up with PCP in 1 week. This note was generated with [employer] dictation software. It may contain incorrect words, spelling, and punctuation that were not noted in checking the note before signing. Patient Problems: Active and Suspected Problems (Last Reviewed 12/20/17 @ 13:48 by Carissa Falcon) Lower gastrointestinal bleeding (Acute) Left sided colitis (Acute) - Physical Exam General: Alert, Oriented x3, Cooperative, No apparent distress HEENT: Atraumatic, PERRLA, EOMI, Normocephalic Oral: Moist Mucosa, No Gingival or Mucosal Lesions/ Ulcerations Neck: Supple, No JVD, Negative Carotid Bruits, Thyroid Normal Size and Texture Lungs: Clear to auscultation, No rhonchi, No wheeze, No rales, Diminished Cardiovascular: Regular rate, Regular Rhythm, Normal S1, Normal S2, PMI Normal Abdomen: Bowel Sounds Present, Soft, Non Tender, Non-Distended, No Hepato-splenomegaly Extremities: No clubbing, No cyanosis, No edema Skin: No rashes, No breakdown Neurological: Cranial nerves II-XII grossly intact, Neuro grossly intact Psych/Mental Status: Normal Affect, Appropriate, Alert and oriented to time, place, person, mood and affect Vital Signs Temp Pulse Resp BP Pulse Ox 99.0 F 77 18 111/56 L 96 03/28/18 08:05 03/28/18 08:05 03/28/18 08:05 03/28/18 08:05 03/28/18 08:05 Oxygen Delivery Method Room Air Weight: 146 lb 7.955 oz Body Mass Index (BMI) 27.6 Intake and Output for Last 24 Hours Intake Total 4351 / 4351 3630 / 3630 1885 / 1885 Output Total 1600 / 1600 700 / 700 Balance 2751 / 2751 2930 / 2930 188 / 188 Microbiology Past 72 Hours 03/25/18 12:30 Enteric Bacteriology - Final Stool 03/25/18 12:30 C. difficile DNA Amplification - Final Stool 03/25/18 12:30 Stool Lactoferrin - Final Stool Laboratory Tests Past 24 Hrs Sodium 145 Potassium 3.8 Chloride 113 H Carbon Dioxide 24.0 Discharge Activity: Return to Normal Activity Weight Bearing Status: Weight bearing as tolerated Call your doctor if you observe: Fever of 101 or Higher, Shortness of breath, Dizziness, Fainting spells, Chest pain, Increased palpitations (irregular heartbeat), Uncontrolled pain Home Medications: Medications to take at Discharge ALPRAZolam [Xanax] 0.5 mg PO QHS PRN 02/13/15 Felodipine [Plendil] 10 mg PO DAILY 02/13/15 Levothyroxine [Synthroid] 50 mcg PO DAILY 02/13/15 Atorvastatin Calcium [Lipitor] 10 mg PO QHS 08/17/17 Albuterol Sulfate [Ventolin Hfa] 1 - 2 puff INHALATION PRN PRN 03/24/18 Ergocalciferol (Vitamin D2) [Drisdol] 50,000 unit PO QMONTH 03/24/18 Ibuprofen/Diphenhydramine Cit [Advil Pm Caplet] 2 tab PO QHS 03/24/18 Ciprofloxacin [Cipro] 500 mg PO BID #20 tablet 03/28/18 Metronidazole [Flagyl] 500 mg PO Q8H #30 tablet 03/28/18 Pantoprazole Sodium [Protonix] 40 mg PO DAILY #30 tablet 03/28/18 Following Prescrptions Were Given to Patient: Metronidazole [Flagyl] 500 mg PO Q8H #30 tablet Pantoprazole Sodium [Protonix] 40 mg PO DAILY #30 tablet Ciprofloxacin [Cipro] 500 mg PO BID #20 tablet Primary Care Physician: Yadira Alston MD [Primary Care Provider] - Please follow up with your Primary Care Physician in: 1-2 weeks. Please Follow Up With: Dayana Cohen MD When: 1 week. Please Follow Up With: YADIRA WEI When: 1 TO 2 WEEKS Disposition: Home Minutes spent on discharge:: 33 Patient Condition:: Stable Medical Necessity - Tobacco Use Smoking Status: Former smoker Meaningful Use Info Meaningful Use Diagnoses (Choose all that apply): None applicable Code Visit Inpatient E AND M: 33602 Disch Hosp 03/28/18 1132 <Electronically signed by Courtney Rodgers MD> Date Courtney Rodgers MD Cosigner Signature (if applicable): Date CC: Courtney Rodgers; Yadira Alston MD; Dayana Cohen MD Signed DISCHARGE INSTRUCTION Observed: 03/28/2018 Status: F Source: [place] 9:04 AM [facility] REPOSITORY [facility] Medical Records Department [address] [place] [address] Instructions for Home/Discharge Instructions 03/28/18901 MR#: [id number] Acct: [id number] Name: KATHY OCASIO Sajan Rep #: [id number] : 1950 68 From: Courtney Rodgers MD PCP: Yadira Alston MD Status: ADM IN - Discharge Diagnoses Current Active Problems: Current Active and Chronic Problems (Last Reviewed 12/20/17 @ 13:48 by Carissa Falcon) Lower gastrointestinal bleeding (Acute) Left sided colitis (Acute) You will use the following diet at home:: Cardiac, Other - Light diet, advance as tolerated. Your food should be the consistency of: Soft (bite-sized AND easy to chew/swallow) Discharge Activity: Return to Normal Activity Weight Bearing Status: Weight bearing as tolerated Call your doctor if you observe: Fever of 101 or Higher, Shortness of breath, Dizziness, Fainting spells, Chest pain, Increased palpitations (irregular heartbeat), Uncontrolled pain Allergies/Adverse Reactions: Allergies doxycycline Allergy (Verified 03/24/18 16:44) Itching cephalexin Adverse Reaction (Verified 03/24/18 16:44) Other citalopram Adverse Reaction (Verified 03/24/18 16:44) Other metoclopramide [From Reglan] Adverse Reaction (Verified 03/24/18 16:44) Other morphine Adverse Reaction (Verified 03/24/18 16:44) Low blood pressure pregabalin Adverse Reaction (Verified 03/24/18 16:44) Other Medications to take at Discharge ALPRAZolam [Xanax] 0.5 mg PO QHS PRN 02/13/15 Felodipine [Plendil] 10 mg PO DAILY 02/13/15 Levothyroxine [Synthroid] 50 mcg PO DAILY 02/13/15 Atorvastatin Calcium [Lipitor] 10 mg PO QHS 08/17/17 Albuterol Sulfate [Ventolin Hfa] 1 - 2 puff INHALATION PRN PRN 03/24/18 Ergocalciferol (Vitamin D2) [Drisdol] 50,000 unit PO QMONTH 03/24/18 Ibuprofen/Diphenhydramine Cit [Advil Pm Caplet] 2 tab PO QHS 03/24/18 Ciprofloxacin [Cipro] 500 mg PO BID #20 tablet 03/28/18 Metronidazole [Flagyl] 500 mg PO Q8H #30 tablet 03/28/18 Pantoprazole Sodium [Protonix] 40 mg PO DAILY #30 tablet 03/28/18 The following prescriptions were given: Metronidazole [Flagyl] 500 mg PO Q8H #30 tablet Pantoprazole Sodium [Protonix] 40 mg PO DAILY #30 tablet Ciprofloxacin [Cipro] 500 mg PO BID #20 tablet Primary Care Physician: Yadira Alston MD [Primary Care Provider] - Please follow up with your Primary Care Physician in: 1-2 weeks. Test Results: Test results from this visit will be discussed in further detail at your follow-up appointment, if applicable. Please Follow Up With: Dayana Cohen MD When: 1 week. 03/28/18 0904 <Electronically signed by Courtney Rodgers MD> Date Courtney Rodgers MD CC: Yadira Alston MD; Carlos Alberto Schultz MD; Dayana Cohen MD BASIC METABOLIC Collected: 03/28/2018 Status: F Source: [place] PROFILE (BMP) 5:14 AM [facility] REPOSITORY TYPE CODE TESTS RESULT OUT OF RANGE REFERENCE UNITS LAB L501.0100 74-106 mg/dL High GLU 136 Result Comment: Fasting Glucose result greater than or equal to 126 mg/dL suggests DIABETES MELLITUS per A.D.A. criteria. Please note revised GLUCOSE reference range effective 2017. LAB L501.1000 7-18 mg/dL Normal BUN 8 LAB L501.1100 0.55-1.02 mg/dL Normal CREAT,SERUM 0.60 Result Comment: The validity of the calculated GFR AND GFRAA in patients over 70 years has not been determined. Clinical correlation is essential. LAB L501.1110 >60 mL/min Normal EST GFR 105 Result Comment: Non- GFR Calc LAB L501.1115 >60 mL/min Normal EST GFR - AA 127 Result Comment: GFR Calc LAB L501.1255 ml/min Normal Estimated CRCL 40.07 LAB L501.1300 10-20 RATIO Normal BUN/CRE 13.3 LAB L501.2200 8.5-10 mg/dL Low .1 CA 8.0 LAB L501.5300 136-14 mmol/L Normal 5 NA 145 LAB L501.5600 3.5-5. mmol/L Normal 1 K 3.8 LAB L501.5900 98-107 mmol/L High CL 113 LAB L501.6100 21.0-3 mmol/L Normal 2.0 CO2 24.0 LAB L501.6200 5-15 Normal GAP 8 Performed By: #### L500.2500 #### [facility] Laboratory [address] [facility] [facility] [place], [address] CONSULTATION Observed: 03/27/2018 Status: F Source: [place] 5:24 PM [facility] REPOS[facility] Medical Records Department [address] [place] [address] Consultation 03/27/18 1721 MR#: [id number] Acct: [id number] Name: KATHY OCASIO Sajan Rep #: [id number] : 1950 68 From: Carlos Alberto Schultz MD PCP: Yadira Alston MD Status: ADM IN Location: [place] [address] Reason for Consult Date of Consultation: 03/27/18 Reason for Consultation: Bilateral hydronephrosis History of Present Illness: The patient is a 68 year old female came in with gastrointestinal bleeding she had workup by general surgery. On CAT scan she had a possible stone in the distal right ureter as read by CAT scan also appears to have dilated both the left and right ureters she does relate having several UTIs this past year has not had a female gynecological exam in the last year. Has a history of prior lung cancer. Currently describes having some lower back pain. Denies any gross hematuria. Past Medical History Past Medical History (Chronic Problems): Chronic Problems (Last Reviewed 12/20/17 @ 13:48 by Carissa Falcon) Fibromyalgia (Chronic) IBS (irritable bowel syndrome) (Chronic) Thoracic neuritis (Chronic) Segmental and somatic dysfunction of lumbar region (Chronic) Segmental and somatic dysfunction of thoracic region (Chronic) Thoracic back pain (Chronic) Non-small cell lung cancer (NSCLC) (Chronic) Acquired hypothyroidism (Chronic) Benign essential HTN (Chronic) Hypertriglyceridemia (Chronic) Odynophagia (Chronic) Medical History: Medical History (Last Reviewed 12/20/17 @ 13:48 by Carissa Falcon) Fibromyalgia (Chronic) M79.7 IBS (irritable bowel syndrome) (Chronic) K58.9 Allergies doxycycline Allergy (Verified 03/24/18 16:44) Itching cephalexin Adverse Reaction (Verified 03/24/18 16:44) Other citalopram Adverse Reaction (Verified 03/24/18 16:44) Other metoclopramide [From Reglan] Adverse Reaction (Verified 03/24/18 16:44) Other morphine Adverse Reaction (Verified 03/24/18 16:44) Low blood pressure pregabalin Adverse Reaction (Verified 03/24/18 16:44) Other Home Medications: Ambulatory Orders Medication Instructions Recorded ALPRAZolam [Xanax] 0.5 mg PO QHS PRN 02/13/15 Surgical History: Surgical History (Last Reviewed 12/20/17 @ 13:48 by Carissa Falcon) H/O cataract extraction Z98.49 bilateral S/P appendectomy Z90.49 S/P bilateral foot surgery Z98.890 S/P breast biopsy, bilateral Z98.890 with clip in left breast S/P cholecystectomy Z90.49 S/P partial lobectomy of lung Z90.2 left due to lung cancer S/P removal of ovarian cyst Z98.890, Z87.42 Surgical History: appendectomy, cholecystectomy, hysterectomy Psychiatric History: No 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 psych hx 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 Smoking Status: Former smoker - *Family History Paternal Family History: Family History (Last Reviewed 12/20/17 @ 13:48 by Carissa Falcon) Mother Diabetes Lung cancer CHF (congestive heart failure) Hypertension Father CHF (congestive heart failure) Hypertension Brother Hypertension Sister Hypertension Diabetes Aunt Breast cancer Other Heart disease History Items: No pertinent history Review of Systems Constitutional: Denies: Chills, Fever, Weight Change HEENT: Denies: Head Aches, Sinus Congestion, Sinus Drainage Cardiovascular: Denies: Chest Pain, Palpitations Respiratory: Denies: Cough, Shortness of breath at rest, Sputum production Gastrointestinal: Reports: Abdominal Pain. Denies: Nausea, Vomiting Genitourinary: Denies: Dysuria Musculoskeletal: Reports: Back Pain. Denies: Joint Pain, Joint Tenderness Skin: Denies: Rash, Wounds Neurological: Denies: Numbness, Tingling, Focal weakness Psychiatric: Denies: Anxiety, Depression, Homicidal Ideations, Suicidal Ideations Hematologic/ Lymphatic: Denies: Easy Bruising, Easy Bleeding Physical Exam - Physical Exam Vital Signs Temp 98.2 F 03/27/18 15:49 Pulse 68 03/27/18 15:49 Resp 18 03/27/18 15:49 BP 136/74 H 03/27/18 15:49 Pulse Ox 94 03/27/18 15:49 Intake AND Output Intake Total 3205 / 3205 4351 / 4351 2839 / 2839 Output Total 200 / 200 1600 / 1600 700 / 700 General: Alert, Oriented x3 HEENT: Atraumatic Oral: Moist Mucosa Neck: Supple Lungs: Normal air movement Cardiovascular: Regular rate Abdomen: Soft, Obese Microbiology Past 72 Hours 03/25/18 12:30 Enteric Bacteriology - Final Stool 03/25/18 12:30 C. difficile DNA Amplification - Final Laboratory Tests Past 24 Hrs WBC 5.7 RBC 4.11 L Hgb 12.6 Hct 37.9 Assessment/Plan All Active Problems (Last Reviewed 12/20/17 @ 13:48 by Carissa Falcon) Lower gastrointestinal bleeding (Acute) Left sided colitis (Acute) 68-year-old female with bilateral hydronephrosis etiology is unclear if possible for the kidney stone recommend she follow-up with me in the office will do further workup may repeat the CAT scan and do CT scan with contrast, he can follow-up in the office probably will repeat the CAT scan with contrast dye to further evaluate she has normal creatinine. May have to do cystoscopy need to do retrogrades and ureteroscopy if he forgot the etiology of the hydronephrosis currently did state able to think she needs to stay in the hospital but she can follow-up in the office. 03/27/18 1724 <Electronically signed by Carlos Alberto Schultz MD> Date Carlos Alberto Schultz MD Cosigner Signature (if applicable): Date CC: Yadira Alston MD; Carlos Alberto Schultz MD; Dayana Cohen MD Signed OPERATIVE REPORT - Observed: 03/27/2018 Status: F Source: [facility] 2:56 PM [facility] REPOSITORY [facility] Medical Records Department [address] [place] [address] Operative Report - Endoscopy MR#: [id number] Acct: [id number] Name: KATHY OCASIO Rep #: [id number] : 1950 68 From: Dayana Cohen MD PCP: Yadira Alston MD Status: ADM IN Patient Name: Kathy Ocasio Procedure Date: 03/27/2018 2:32 PM Date of : 1950 Age: 68 Procedure: Colonoscopy Indications: Hematochezia, Abnormal CT of the GI tract Providers: Dayana Cohen MD Medicines: Monitored Anesthesia Care Patient Profile: This is a 68 year old female. Refer to note in patient chart for documentation of history and physical. Patient has symptoms. Last Colonoscopy: date unknown. Complications: No immediate complications. Procedure: Pre-Anesthesia Assessment: - Prior to the procedure, a History and Physical was performed, and patient medications and allergies were reviewed. The patient is competent. The risks and benefits of the procedure and the sedation options and risks were discussed with the patient. All questions were answered and informed consent was obtained. Patient identification and proposed procedure were verified by the physician, the nurse and the sports complex attendant in the procedure room. Mental Status Examination: alert and oriented. Airway Examination: normal oropharyngeal airway and neck mobility. Respiratory Examination: clear to auscultation. CV Examination: normal. Prophylactic Antibiotics: The patient does not require prophylactic antibiotics. Prior Anticoagulants: The patient has taken no previous anticoagulant or antiplatelet agents. ASA Grade Assessment: II - A patient with mild systemic disease. After reviewing the risks and benefits, the patient was deemed in satisfactory condition to undergo the procedure. The anesthesia plan was to use monitored anesthesia care (MAC). Immediately prior to administration of medications, the patient was re-assessed for adequacy to receive sedatives. The heart rate, respiratory rate, oxygen saturations, blood pressure, adequacy of pulmonary ventilation, and response to care were monitored throughout the procedure. The physical status of the patient was re-assessed after the procedure. After I obtained informed consent, the scope was passed under direct vision. Throughout the procedure, the patient's blood pressure, pulse, and oxygen saturations were monitored continuously. The pediatric colonoscope was introduced through the anus and advanced to 5 cm into the ileum. The colonoscopy was performed without difficulty. The patient tolerated the procedure well. The quality of the bowel preparation was good. Scope In: 2:34:14 PM Scope Withdrawal Time 0 hours 10 minutes 49 seconds Scope Out: 2:50:15 PM Total Procedure Duration Time 0 hours 16 minutes 1 second Findings: The perianal and digital rectal examinations were normal. The terminal ileum appeared normal. Biopsies were taken with a cold forceps for histology. The colon (entire examined portion) appeared normal. Biopsies for histology were taken with a cold forceps from the cecum and sigmoid colon for evaluation of microscopic colitis. The splenic flexure appeared normal. Biopsies were taken with a cold forceps for histology. Many small and large-mouthed diverticula were found in the sigmoid colon. The retroflexed view of the distal rectum and anal verge was normal and showed no anal or rectal abnormalities. Impression: - The examined portion of the ileum was normal. Biopsied. - The entire examined colon is normal. Biopsied. - The splenic flexure is normal. Biopsied. - Diverticulosis in the sigmoid colon. - The distal rectum and anal verge are normal on retroflexion view. Recommendation: - Return patient to hospital [facility]. - Resume regular diet. - Continue present medications. - Return to my office in 1 week. - Repeat colonoscopy is recommended. The colonoscopy date will be determined after pathology results from today's exam become available for review. Procedure Code(s): --- Professional --- 50838, Colonoscopy, flexible; with biopsy, single or multiple CPT copyright 2017 [employer]. All rights reserved. The codes documented in this report are preliminary and upon timers inspector review may be revised to meet current compliance requirements. Dayana Cohen MD 03/27/2018 2:56:33 PM This report has been signed electronically. Number of Addenda: 0 Note Initiated On: 03/27/2018 2:32 PM 03/27/18 1456 Date Dayana Cohen MD Cosigner Signature: Date (if indicated) CC: Courtney Rodgers; Yadira Alston MD; Carlos Alberto Schultz MD; Dayana Cohen MD Date Dictated: 03/27/18 1432 Date Transcribed: Seam Taper Machine: NURIS Signed OPERATIVE REPORT - Observed: 03/27/2018 Status: F Source: [facility] 2:54 PM [facility] REPOSITORY [facility] Medical Records Department [address] [place] [id number] Operative Report - Endoscopy MR#: [id number] Acct: [id number] Name: KATHY OCASIO Rep #: [id number] : 1950 68 From: Dayana Cohen MD PCP: Yadira Alston MD Status: ADM IN Patient Name: Kathy Ocasio Procedure Date: 03/27/2018 2:13 PM Date of : 1950 Age: 68 Procedure: Upper GI endoscopy Indications: Epigastric abdominal pain, Suspected esophageal reflux Providers: Dayana Cohen MD Medicines: Monitored Anesthesia Care Patient Profile: This is a 68 year old female. Refer to note in patient chart for documentation of history and physical. Patient has symptoms. Complications: No immediate complications. Procedure: Pre-Anesthesia Assessment: - Prior to the procedure, a History and Physical was performed, and patient medications and allergies were reviewed. The patient is competent. The risks and benefits of the procedure and the sedation options and risks were discussed with the patient. All questions were answered and informed consent was obtained. Patient identification and proposed procedure were verified by the physician, the nurse and the sports complex attendant in the procedure room. Mental Status Examination: alert and oriented. Airway Examination: normal oropharyngeal airway and neck mobility. Respiratory Examination: clear to auscultation. CV Examination: normal. Prophylactic Antibiotics: The patient does not require prophylactic antibiotics. Prior Anticoagulants: The patient has taken no previous anticoagulant or antiplatelet agents. ASA Grade Assessment: II - A patient with mild systemic disease. After reviewing the risks and benefits, the patient was deemed in satisfactory condition to undergo the procedure. The anesthesia plan was to use monitored anesthesia care (MAC). Immediately prior to administration of medications, the patient was re-assessed for adequacy to receive sedatives. The heart rate, respiratory rate, oxygen saturations, blood pressure, adequacy of pulmonary ventilation, and response to care were monitored throughout the procedure. The physical status of the patient was re-assessed after the procedure. After obtaining informed consent, the endoscope was passed under direct vision. Throughout the procedure, the patient's blood pressure, pulse, and oxygen saturations were monitored continuously. The gastroscope was introduced through the mouth, and advanced to the jejunum. The upper GI endoscopy was accomplished without difficulty. The patient tolerated the procedure well. Scope In: 2:25:49 PM Scope Out: 2:30:56 PM Total Procedure Duration Time 0 hours 5 minutes 7 seconds Findings: The examined jejunum was normal. Biopsies for histology were taken with a cold forceps for evaluation of celiac disease. The examined duodenum was normal. Patchy mild inflammation characterized by erythema and friability was found in the gastric antrum. Biopsies were taken with a cold forceps for Helicobacter pylori testing using PyloriTek test. Biopsies were taken with a cold forceps for histology. Mildly severe esophagitis with no bleeding was found. Biopsies were taken with a cold forceps for histology. The middle third of the esophagus was normal. Biopsies were taken with a cold forceps for histology. Impression: - Normal examined jejunum. Biopsied. - Normal examined duodenum. - Gastritis. Biopsied. - Mildly severe reflux esophagitis. Rule out Llanos's esophagus. Biopsied. - Normal middle third of esophagus. Biopsied. Recommendation: - Return to my office in 1 week. - Continue present medications. Procedure Code(s): --- Professional --- 14651, Esophagogastroduodenoscopy, flexible, transoral; with biopsy, single or multiple CPT copyright 2017 [employer]. All rights reserved. The codes documented in this report are preliminary and upon timers inspector review may be revised to meet current compliance requirements. Dayana Cohen MD 03/27/2018 2:54:10 PM This report has been signed electronically. Number of Addenda: 0 Note Initiated On: 03/27/2018 2:13 PM 03/27/18 1454 Date Dayana Cohen MD Cosigner Signature: Date (if indicated) CC: Courtney Rodgers; Yadira Alston MD; Carlos Alberto Schultz MD; Dayana Cohen MD Date Dictated: 03/27/18 1413 Date Transcribed: Seam Taper Machine: NURIS Signed EGD ([facility] S[facility]) Observed: 03/27/2018 Status: F Source: [place] 2:00 PM [facility] REPOSITORY Patient: KATHY OCASIO : 1950 (68/F) Acct Num: [id number] Phys: Courtney Rodgers Unit Num: [id number] Loc: MS3 [id number] Specimen: [id number] Received: 03/27/181511 Spec Type: EGD BIOPSY TISSUES 1 TISSUES: A. Jejunum, NOS B. Gastric mucous membrane C. Esophageal mucous membrane D. Esophageal mucous membrane E. Ileum, NOS F. COLON BIOPSY G. SPLENIC FLEXURE COMMENT The results of immunohistochemistry for Helicobacter pylori will be reported separately ([id number]). B. The majority of the specimen appears to have been lost in processing. GROSS DESCRIPTION A. Received is one container labeled with the patient name and designated jejunum biopsy. The specimen consists of one irregular fragment of light marquez soft tissue that measures 0.3 x 0.3 x 0.1 cm. The specimen is totally submitted in one cassette. B. Received is one container labeled with the patient name and designated antrum biopsy for H. pylori. The specimen consists of one irregular fragment of light marquez soft tissue that measures 0.4 x 0.3 x 0.1 cm. The specimen is totally submitted in one cassette. C. Received is one container labeled with the patient name and designated distal esophagus biopsy. The specimen consists of two irregular fragments of light marquez soft tissue that in aggregate measure 0.6 x 0.3 x 0.1 cm. The specimen is totally submitted in one cassette. D. Received is one container labeled with the patient name and designated mid esophagus biopsy. The specimen consists of one irregular fragment of light marquez soft tissue that measures 0.4 x 0.3 x 0.1 cm. The specimen is totally submitted in one cassette. E. Received is one container labeled with the patient name and designated biopsy of terminal ileum. The specimen consists of multiple irregular fragments of light marquez soft tissue that in aggregate measure 1 x 0.3 x 0.1 cm. The specimen is totally submitted in one cassette. F. Received is one container labeled with the patient name and designated random biopsy. The specimen consists of two irregular fragments of light marquez soft tissue that measure in aggregate 0.6 x 0.3 x 0.1 cm. The specimen is totally submitted in one cassette. G. Received is one container labeled with the patient name and designated splenic flexure biopsy. The specimen consists of one irregular fragment of light marquez soft tissue that measures 0.6 x 0.2 x 0.1 cm. The specimen is totally submitted in one cassette. SJ:shaun 03/28/18 TC: 3 CPT: 99020 x7 HEADER OPERATION: Colonoscopy, [place] PRE-OP DIAGNOSIS: Epigastric symptoms, and left sided colitis TISSUE SUBMITTED: A. Jejunum biopsy, B. Antrum biopsy for H. Pylori, C. Distal esophagus biopsy, D. Mid esophagus biopsy, E. Biopsy of terminal ileum, F. Random colon biopsies, G. Splenic flexure biopsy MICROSCOPIC DESCRIPTION Slides are reviewed. MICROSCOPIC DIAGNOSIS A. Jejunum, biopsy: No pathologic diagnosis. B. Gastric antrum, biopsy: Rare benign glandular epithelium. C. Distal esophagus, biopsy: Focal changes of reflux. Gastroesophageal junction with mild chronic inflammation. D. Mid esophagus, biopsy: Benign fragments of superficial squamous mucosa. E. Terminal ileum, biopsy: No pathologic diagnosis. F. Random biopsy: No pathologic change. G. Splenic flexure, biopsy: No pathologic diagnosis. AM:sp 03/29/18 Signed Earnest Eufemia 03/29/18 <signature on file> Performed By: #### PEGD #### [facility] Laboratory [address], [address] BASIC METABOLIC Collected: 03/27/2018 Status: F Source: [place] [facility] ([facility]) 5:08 AM [facility] REPOSITORY TYPE CODE TESTS RESULT OUT OF RANGE REFERENCE UNITS LAB L501.0100 74-106 mg/dL High GLU 131 Result Comment: Fasting Glucose result greater than or equal to 126 mg/dL suggests DIABETES MELLITUS per A.D.A. criteria. Please note revised GLUCOSE reference range effective 2017. LAB L501.1000 7-18 mg/dL Low BUN 5 LAB L501.1100 0.55-1.02 mg/dL Normal CREAT,SERUM 0.64 Result Comment: The validity of the calculated GFR AND GFRAA in patients over 70 years has not been determined. Clinical correlation is essential. LAB L501.1110 >60 mL/min Normal EST GFR 98 Result Comment: Non- GFR Calc LAB L501.1115 >60 mL/min Normal EST GFR - AA 118 Result Comment: GFR Calc LAB L501.1255 ml/min Normal Estimated CRCL 40.07 LAB L501.1300 10-20 RATIO Low BUN/CRE 7.8 LAB L501.2200 8.5-10 mg/dL Low .1 CA 8.3 LAB L501.5300 136-14 mmol/L Normal 5 NA 144 LAB L501.5600 3.5-5. mmol/L Low 1 K 3.4 LAB L501.5900 98-107 mmol/L High CL 111 LAB L501.6100 21.0-3 mmol/L Normal 2.0 CO2 26.0 LAB L501.6200 5-15 Normal GAP 7 Performed By: #### L500.2500 #### [facility] Laboratory [address] [place], [address] CBC-COMPLETE BLOOD CNT Collected: 03/27/2018 Status: F Source: [place] NO DIFF 5:08 AM [facility] REPOSITORY TYPE CODE TESTS RESULT OUT OF RANGE REFERENCE UNITS LAB L100.1000 4.4-11.0 K/mm3 Normal WBC 5.7 LAB L100.1200 4.2-5.4 M/mm3 Low RBC 4.11 LAB L100.1300 12.0-15.0 g/dl Normal HGB 12.6 LAB L100.1400 37-47 % Normal HCT 37.9 LAB L100.1500 81-99 fL Normal MCV 92.2 LAB L100.1600 27.0-32.0 pg Normal MCH 30.7 LAB L100.1700 32-36 g/gl Normal MCHC 33.2 LAB L100.1810 11.6-14.6 % Normal RDW CV 13.2 LAB L100.1820 35.1-43.9 fl Normal RDW SD 43.9 LAB L100.1900 150-450 K/mm3 Normal PLT 227 LAB L100.2000 6.2-12.0 fl Normal MPV 9.9 Performed By: #### L100.0500 #### [facility] Laboratory [address] [place], [address] CNOP Observed: 03/27/2018 Status: COMPLETED Source: [place] 12:00 AM [facility] REPOSITORY Operative Note (Enc) (GENSWS) Progress Notes: Dayana Cohen MD 04/04/2018 9:16 PM Signed OPERATIVE NOTATION FOR [facility] SURGICAL PROCEDURE. March 27, 2018 Kathy Ocasio 1950 [id number] female PROCEDURE: EGD WITH BIOPSY - 84910-014 and COLONOSCOPY WITH BIOPSY - 23652-491 SURGEON: Mike Cohen M.D. 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 Dayana Cohen MD Encounter Status:Closed by DAYANA COHEN MD on 04/04/18 IMMUNOHISTOCHEMISTRY Observed: 03/27/2018 Status: F Source: [place] 12:00 [facility] REPOSITORY Patient: KATHY OCASIO : 1950 (68/F) Acct Num: [id number] Phys: Courtney Rodgers Unit Num: [id number] Loc: MS3 [id number] Specimen: [id number] Received: 03/29/18 - 0753 Spec Type: IMMUNO TISSUES 1 TISSUES: Gastric mucous membrane SPECIMEN INFORMATION: Tissue Source: Distal esophagus Clinical Info: Epigastric symptoms, and left sided colitis Specimen Number: [id number] CPT code: 90375 METHODOLOGY: Deparaffinized sections of prefer/formalin-fixed tissue or PAP/DQ stained slides are incubated with monoclonal/polyclonal antibodies/oligonucleotide probes. Localization is made via biotin free immunoperoxidase method. Appropriate controls are performed and reacted as expected. Results on target cell population are indicated in the following table: RESULTS: ANTIBODY / CLONE RESULT H Pylori (polyclonal) negative These tests were developed and their performance characteristics determined by [facility]. They may not have been cleared or approved by the U.S. Food and Drug Administration. The FDA has determined that such clearance or approval is not necessary. INTERPRETATION: Distal esophagus: Gastric mucosa fragment is negative for Helicobacter pylori organisms. AM:mary beth PHYSICIAN AND INSTITUTION [facility] [address] [place], [place] [address] Signed Earnest Fall 03/30/18 <signature on file> Performed By: #### PIMM #### [facility] Laboratory [address] [facility] [place], [place], [address] CBC-COMPLETE BLOOD CNT Collected: 03/26/2018 Status: F Source: [place] NO DIFF 5:34 AM [facility] REPOSITORY TYPE CODE TESTS RESULT OUT OF RANGE REFERENCE UNITS LAB L100.1000 4.4-11.0 K/mm3 Normal WBC 7.0 LAB L100.1200 4.2-5.4 M/mm3 Normal RBC 4.35 LAB L100.1300 12.0-15.0 g/dl Normal HGB 12.9 LAB L100.1400 37-47 % Normal HCT 40.3 LAB L100.1500 81-99 fL Normal MCV 92.6 LAB L100.1600 27.0-32.0 pg Normal MCH 29.7 LAB L100.1700 32-36 g/gl Normal MCHC 32.0 LAB L100.1810 11.6-14.6 % Normal RDW CV 13.5 LAB L100.1820 35.1-43.9 fl High RDW SD 46.2 LAB L100.1900 150-450 K/mm3 Normal PLT 240 LAB L100.2000 6.2-12.0 fl Normal MPV 9.8 Performed By: #### L100.0500 #### [facility] [address] [place], [place], [address] BASIC METABOLIC Collected: 03/26/2018 Status: F Source: [place] PROFILE ([facility]) 5:34 AM [facility] REPOSITORY TYPE CODE TESTS RESULT OUT OF RANGE REFERENCE UNITS LAB L501.0100 74-106 mg/dL Normal GLU 103 Result Comment: Fasting Glucose result from 100 to 125 mg/dL suggests IMPAIRED HOMEOSTASIS per A.D.A. criteria. Please note revised GLUCOSE reference range effective 2017. LAB L501.1000 7-18 mg/dL Low BUN 6 LAB L501.1100 0.55-1.02 mg/dL Normal CREAT,SERUM 0.56 Result Comment: The validity of the calculated GFR AND GFRAA in patients over 70 years has not been determined. Clinical correlation is essential. LAB L501.1110 >60 mL/min Normal EST GFR 114 Result Comment: Non- GFR Calc LAB L501.1115 >60 mL/min Normal EST GFR - AA 138 Result Comment: GFR Calc LAB L501.1255 ml/min Normal Estimated CRCL 40.07 LAB L501.1300 10-20 RATIO Normal BUN/CRE 10.7 LAB L501.2200 8.5-10 mg/dL Normal .1 CA 8.5 LAB L501.5300 136-14 mmol/L Normal 5 NA 144 LAB L501.5600 3.5-5. mmol/L Normal 1 K 3.5 LAB L501.5900 98-107 mmol/L High CL 110 LAB L501.6100 21.0-3 mmol/L Normal 2.0 CO2 24.0 LAB L501.6200 5-15 Normal GAP 10 Performed By: #### L500.2500, L501.5200 #### [facility] [address] [place], [address] MAGNESIUM Collected: 03/26/2018 Status: F Source: [place] 5:34 AM [facility] REPOSITORY TYPE CODE TESTS RESULT OUT OF RANGE REFERENCE UNITS LAB L501.5200 1.6-2.6 mg/dL Normal MG 2.2 Performed By: #### L500.2500, L501.5200 #### [facility] Laboratory [address] [place], [address] STOOL Observed: 03/25/2018 Status: F Source: [place] LACTOFERRIN/WBC 12:30 PM [facility] REPOSITORY Stool Lacto/WBC Normal Reference Range = Negative Fecal WBC Lactoferrin Positive: Fecal WBC Lactoferrin present Performed By: #### M100.0605 #### [facility] [address] [place], [address] Observed: 03/25/2018 Status: F Source: [place] CDIFF (MOLECULAR) 12:30 PM [facility] REPOSITORY Is the patient receiving laxatives? N New/unexplained onset of 3 or more stools in past 24 hrs? Y Cdiff-Molecular C. Diff DNA Negative- No toxigenic C. Diff DNA Detected NAAT METHOD Testing was performed using nucleic acid amplification Performed By: #### M100.6796 #### [facility] [address] [place] [id number] Observed: 03/25/2018 Status: F Source: [place] ENTERIC PATHOGEN 12:30 PM [facility] PANEL STOOL REPOSITORY EP PANEL STOOL Normal Reference Range = Not Detected Not detected for Campylobacter group, Salmonella species, Shigella species, Vibrio Group, Yersinia enterocolitica, EHEC (Shiga Toxin 1, Shiga Toxin 2), Norovirus Gl/Gll, and Rotavirus A. Other common stool pathogens are not detected on this panel include: Aeromonas/Plesiomonas or parasites. Order testing for these organisms separately if suspected. This is an amplified DNA test which makes it both specific and sensitive. CAMPYLOBACTER Not Detected Salmonella Not Detected Shigella sp. Not Detected Shiga Toxin Not Detected Yersinia Not Detected VIBRIO Not Detected Norovirus Not Detected Rotavirus Not Detected Performed By: #### M100.637 #### [facility] [address] [place] [address] BEDSIDE GLUCOSE Collected: 03/25/2018 Status: F Source: [place] 11:56 AM [facility] REPOSITORY TYPE CODE TESTS RESULT OUT OF RANGE REFERENCE UNITS LAB L501.080 70-110 mg/dL Normal BEDSIDE GLU 103 Result Comment: MANAGEMENT OF PATIENT CARE PER NURSING PROTOCOL Performed By: #### L501.080 #### [facility] Point of Care [address] [place] [id number] CONSULTATION Observed: 03/25/2018 Status: F Source: [place] 9:13 AM [facility] REPOSITORY [facility] Medical Records Department [address] [place] [address] Consultation 03/25/18 0908 MR#: [id number] Acct: [id number] Name: KATHY OCASIO Rep #: [id number] : 1950 68 From: Dayana Cohen MD PCP: Yadira Alston MD Status: ADM IN Y Location: MS3 ML100-5 Reason for Consult Date of Consultation: 03/25/18 Reason for Consultation: hematochezia History of Present Illness: The patient is a 68 year old F who presents with a complaint of abdominal pain and hematochezia. The patient noted onset of abdominal cramping one half days previously and then noticed bloody diarrhea. She denied dizziness or other diffuse complaints. She presented emergency department. She was noted to have a normal white blood cell count. Digital exam was positive for occult blood. The patient has not had enough stool since presentation the hospital to send for cultures. CT scan of the abdomen and pelvis was obtained which demonstrated transverse colon to descending colon thickening consistent with colitis. This did not seem to be consistent with arterial occlusive colitis. One month previously, the patient had epigastric symptoms evaluated by her primary care provider. She had a stool test she recalls for H. pylori which was positive and treated with antibiotics. She completed those antibiotics at least 3 weeks previously. She notes no other recent antibiotic use. She notes no unusual travel or unusual foods or other people at home with similar illnesses. She does note a prior history again of epigastric complaints. She has never had previous upper endoscopy. She carries a diagnosis of irritable bowel syndrome and fibromyalgia. Interestingly she also has a right sided hydronephrosis on CT scan with a suspicion for a renal stone but is not complaining of right-sided symptoms. Past Medical History Past Medical History (Chronic Problems): Chronic Problems (Last Reviewed 12/20/17 @ 13:48 by Carissa Falcon) Fibromyalgia (Chronic) IBS (irritable bowel syndrome) (Chronic) Thoracic neuritis (Chronic) Segmental and somatic dysfunction of lumbar region (Chronic) Segmental and somatic dysfunction of thoracic region (Chronic) Thoracic back pain (Chronic) Non-small cell lung cancer (NSCLC) (Chronic) Acquired hypothyroidism (Chronic) Benign essential HTN (Chronic) Dizziness (Chronic) Hypertriglyceridemia (Chronic) Odynophagia (Chronic) Medical History: Medical History (Last Reviewed 12/20/17 @ 13:48 by Carissa Falcon) Fibromyalgia (Chronic) M79.7 IBS (irritable bowel syndrome) (Chronic) K58.9 Allergies doxycycline Allergy (Verified 03/24/18 16:44) Itching cephalexin Adverse Reaction (Verified 03/24/18 16:44) Other citalopram Adverse Reaction (Verified 03/24/18 16:44) Other metoclopramide [From Reglan] Adverse Reaction (Verified 03/24/18 16:44) Other morphine Adverse Reaction (Verified 03/24/18 16:44) Low blood pressure pregabalin Adverse Reaction (Verified 03/24/18 16:44) Other Home Medications: Ambulatory Orders Medication Instructions Recorded ALPRAZolam [Xanax] 0.5 mg PO QHS PRN 02/13/15 Surgical History: Surgical History (Last Reviewed 12/20/17 @ 13:48 by Carissa Falcon) H/O cataract extraction Z98.49 bilateral S/P appendectomy Z90.49 S/P bilateral foot surgery Z98.890 S/P breast biopsy, bilateral Z98.890 with clip in left breast S/P cholecystectomy Z90.49 S/P partial lobectomy of lung Z90.2 left due to lung cancer S/P removal of ovarian cyst Z98.890, Z87.42 Surgical History: appendectomy, cholecystectomy, hysterectomy Smoking Status: Former smoker - *Family History Paternal Family History: Family History (Last Reviewed 12/20/17 @ 13:48 by Carissa Falcon) Mother Diabetes Lung cancer CHF (congestive heart failure) Hypertension Father CHF (congestive heart failure) Hypertension Brother Hypertension Sister Hypertension Diabetes Aunt Breast cancer Other Heart disease History Items: No pertinent history Review of Systems Constitutional: Denies: Chills, Fever, Weight Change HEENT: Denies: Head Aches, Sinus Congestion, Sinus Drainage Cardiovascular: Denies: Chest Pain, Palpitations Respiratory: Denies: Cough, Shortness of breath at rest, Sputum production Gastrointestinal: Reports: Abdominal Pain, Hematochezia. Denies: Nausea, Vomiting Genitourinary: Denies: Dysuria Musculoskeletal: Denies: Joint Pain, Joint Tenderness Skin: Denies: Rash, Wounds Neurological: Denies: Numbness, Tingling, Focal weakness Psychiatric: Denies: Anxiety, Depression, Homicidal Ideations, Suicidal Ideations Hematologic/ Lymphatic: Denies: Easy Bruising, Easy Bleeding Patient Problems: Active and Suspected Problems (Last Reviewed 12/20/17 @ 13:48 by Carissa Falcon) Lower gastrointestinal bleeding (Acute) Right distal ureteral calculus (Acute) Left sided colitis (Acute) Colitis (Acute) - Physical Exam General: Alert, Oriented x3, Cooperative HEENT: Atraumatic, PERRLA, EOMI, Normocephalic Neck: Supple, No JVD, Negative Carotid Bruits Lungs: Clear to auscultation, Normal air movement Cardiovascular: Regular rate, No murmurs Abdomen: Bowel Sounds Present, Soft, Tender - in the epigastrium to the left side-mild, no peritoneal signs Extremities: No edema, Capillary Refill Less than 3 Seconds Skin: No rashes, No breakdown Musculoskeletal: No Tenderness to Palpation of Joints or Extremities Neurological: Cranial nerves II-XII grossly intact Psych/Mental Status: Normal Affect, Appropriate Vital Signs Temp Pulse Resp BP Pulse Ox 97.6 F L 75 18 150/68 H 97 03/25/18 06:00 03/25/18 06:00 03/25/18 06:00 03/25/18 06:00 03/25/18 06:00 Oxygen Delivery Method Room Air Weight: 66.451 kg Body Mass Index (BMI) 27.6 Intake and Output for Last 24 Hours Intake Total 1400 / 1400 Balance 1400 / 1400 Microbiology Past 72 Hours 03/24/18 17:00 Stool Occult Blood ([place]ANTIAGO) - Final Stool Occult Blood Positive Laboratory Tests Past 24 Hrs WBC 9.2 RBC 4.70 WBC 6.6 RBC 4.22 Hgb 12.7 Hct 39.1 MCV 92.7 MCH 30.1 Assessment/Plan All Active Problems (Last Reviewed 12/20/17 @ 13:48 by Carissa Falcon) Lower gastrointestinal bleeding (Acute) Right distal ureteral calculus (Acute) Left sided colitis (Acute) Colitis (Acute) Atypical chest pain (Resolved) colitis, hematochezia, epigastric symptoms I would like to see stool cultures-C. difficile, enteric pathogens, fecal WBCs and over and parasites if the patient has a bowel movement. The patient feels hungry. I am comfortable with clear liquids for a lower residue diet currently to provide bowel rest given the colitis of unknown etiology. If the patient remains in the hospital I would plan for bowel prep Tuesday with upper and lower endoscopy on Tuesday. The patient says the risks, benefits, possible complications alternatives to endoscopy and consents to the planned procedures. 03/25/18 0913 <Electronically signed by Dayana Cohen MD> Date Dayana Cohen MD Cosigner Signature (if applicable): Date CC: Yadira Alston MD; Carlos Alberto Schultz MD; Dayana Cohen MD Signed CBC W/DIFF, AUTOMATED Collected: 03/25/2018 Status: F Source: [place] 6:29 AM [facility] REPOSITORY TYPE CODE TESTS RESULT OUT OF RANGE REFERENCE UNITS LAB L100.1000 4.4-11.0 K/mm3 Normal WBC 6.6 LAB L100.1200 4.2-5.4 M/mm3 Normal RBC 4.22 LAB L100.1300 12.0-15.0 g/dl Normal HGB 12.7 LAB L100.1400 37-47 % Normal HCT 39.1 LAB L100.1500 81-99 fL Normal MCV 92.7 LAB L100.1600 27.0-32.0 pg Normal MCH 30.1 LAB L100.1700 32-36 g/gl Normal MCHC 32.5 LAB L100.1810 11.6-14.6 % Normal RDW CV 13.4 LAB L100.1820 35.1-43.9 fl High RDW SD 44.3 LAB L100.1900 150-450 K/mm3 Normal PLT 261 LAB L100.2000 6.2-12.0 fl Normal MPV 9.9 LAB L100.2100 47-70 % Normal NEUT% 58.1 LAB L100.2200 19-41 % Normal LY% 30.6 LAB L100.2300 0-10 % Normal MONO% 8.3 LAB L100.2400 0-5 % Normal EO% 2.3 LAB L100.2500 0-1 % Normal BASO% 0.5 LAB L100.2550 0.0-0.9 % Normal IM GRAN % 0.200 Result Comment: IG% - Immature Granulocytes (promyelocytes, myelocytes and metamyelocytes) > 1% indicates that a LEFT SHIFT is Present. LAB L100.2620 2.0-7.7 X10 3/uL Normal Absolute Neut 3.8 LAB L100.2720 0.83-4.51 X10 3/ul Normal Absolute Lymph 2.02 Performed By: #### L100.0100 #### [facility] [address] [place], [place], [address] BASIC METABOLIC Collected: 03/25/2018 Status: F Source: [place] PROFILE (BMP) 6:29 AM [facility] REPOSITORY TYPE CODE TESTS RESULT OUT OF RANGE REFERENCE UNITS LAB L501.0100 74-106 mg/dL Normal GLU 97 Result Comment: Please note revised GLUCOSE reference range effective 2017. LAB L501.1000 7-18 mg/dL Normal BUN 8 LAB L501.1100 0.55-1.02 mg/dL Normal CREAT,SERUM 0.59 Result Comment: The validity of the calculated GFR AND GFRAA in patients over 70 years has not been determined. Clinical correlation is essential. LAB L501.1110 >60 mL/min Normal EST GFR 107 Result Comment: Non- GFR Calc LAB L501.1115 >60 mL/min Normal EST GFR - AA 130 Result Comment: GFR Calc LAB L501.1255 ml/min Normal Estimated CRCL 40.07 LAB L501.1300 10-20 RATIO Normal BUN/CRE 13.6 LAB L501.2200 8.5-10 mg/dL Low .1 CA 8.0 LAB L501.5300 136-14 mmol/L Normal 5 NA 142 LAB L501.5600 3.5-5. mmol/L Low 1 K 3.4 LAB L501.5900 98-107 mmol/L High CL 110 LAB L501.6100 21.0-3 mmol/L Normal 2.0 CO2 24.0 LAB L501.6200 5-15 Normal GAP 8 Performed By: #### L500.2500, L501.9520, L506.0400 #### [facility] [address] [place], [address] THYROID STIM HORMONE Collected: 03/25/2018 Status: F Source: [place] (TSH) 6:29 AM [facility] REPOSITORY TYPE CODE TESTS RESULT OUT OF RANGE REFERENCE UNITS LAB L501.9520 0.358-3.74 uIU/mL Normal TSH 3.66 Performed By: #### L500.2500, L501.9520, L506.0400 #### [facility] [address] [facility] [facility] [place], [address] T4 FREE DIRECT Collected: 03/25/2018 Status: F Source: [place] 6:29 AM [facility] REPOSITORY TYPE CODE TESTS RESULT OUT OF RANGE REFERENCE UNITS LAB L506.0400 0.76-1.46 ng/dL Normal T4 FREE 1.06 DIRECT Performed By: #### L500.2500, L501.9520, L506.0400 #### [facility] [address] [place], [address] HEMOGLOBIN A1C Collected: 03/25/2018 Status: F Source: [place] 6:29 AM [facility] REPOSITORY TYPE CODE TESTS RESULT OUT OF RANGE REFERENCE UNITS LAB L501.9985 4.2-6.3 % Normal HGB A1C 6.0 Performed By: #### L501.9985 #### [facility] [address] [place], [address] HISTORY AND PHYSICAL Observed: 03/24/2018 Status: F Source: [place] EXAM 9:06 PM [facility] REPOSITORY [facility] Medical Records Department [address] [place] [address] History and Physical 03/24/182049 MR#: [id number] Acct: [id number] Name: KATHY OCASIO Rep #: [id number] : 1950 68 From: Wicho Hernandez MD PCP: Yadira Alston MD Status: ADM IN Y Location: MS3 NT912-6 Problem List (1) Left sided colitis Status: Acute (2) Lower gastrointestinal bleeding Status: Acute (3) Right distal ureteral calculus Status: Acute (4) Fibromyalgia Status: Chronic (5) IBS (irritable bowel syndrome) Status: Chronic (6) Thoracic neuritis Status: Chronic (7) Segmental and somatic dysfunction of lumbar region Status: Chronic (8) Segmental and somatic dysfunction of thoracic region Status: Chronic (9) Atypical chest pain Status: Resolved (10) Thoracic back pain Status: Chronic (11) Non-small cell lung cancer (NSCLC) Status: Chronic Qualifiers: (12) Acquired hypothyroidism Status: Chronic (13) Benign essential HTN Status: Chronic (14) Dizziness Status: Chronic (15) Hypertriglyceridemia Status: Chronic (16) Odynophagia Status: Chronic History of Present Illness Date of Admission: 03/24/18 Chief Complaint: Abdominal pain and lower GI bleed The patient is a 68 year old F with multiple comorbidities including left lungs, cell carcinoma, follows Dr. Canas came to ED with abdominal pain and bright red blood per rectum since morning today. Patient further said she felt little nauseated yesterday but today in the morning she started having abdominal pain mainly in the mid abdomen got diffuse with cramps. She had 2-3 loose bowel movements and bright red rectal bleed. She had completed H pylori triple treatment about 3-4 months ago. She also had colonoscopy by Dr. Troy Ochoa about year ago and polypectomy was done which is reported as benign. Patient denies vomiting but has nausea. She feels dehydrated, thirsty. She denies fever or chills. In ED, she is tachycardic heart rate in 110s, respiratory [address] abdomen and pelvis with IV contrast was done and reported as required left-sided colon from the distal transverse to descending colon suspicious of mild colitis. Incidental finding of persistent right-sided hydronephrosis with suggestion of possible focus of punctate stone in the distal right ureter with abrupt narrowing of right ureter beyond this level. The patient denies prior history of urinary tract stone or renal angle pain or hematuria. Patient has not followed any urologist in the past. Patient was further admitted [] Past Medical History Past Medical History (Chronic Problems): Chronic Problems (Last Reviewed 12/20/17 @ 13:48 by Carissa Falcon) Fibromyalgia (Chronic) IBS (irritable bowel syndrome) (Chronic) Thoracic neuritis (Chronic) Segmental and somatic dysfunction of lumbar region (Chronic) Segmental and somatic dysfunction of thoracic region (Chronic) Thoracic back pain (Chronic) Non-small cell lung cancer (NSCLC) (Chronic) Acquired hypothyroidism (Chronic) Benign essential HTN (Chronic) Dizziness (Chronic) Hypertriglyceridemia (Chronic) Odynophagia (Chronic) Medical History: Medical History (Last Reviewed 12/20/17 @ 13:48 by Carissa Falcon) Fibromyalgia (Chronic) M79.7 IBS (irritable bowel syndrome) (Chronic) K58.9 Allergies doxycycline Allergy (Verified 03/24/18 16:44) Itching cephalexin Adverse Reaction (Verified 03/24/18 16:44) Other citalopram Adverse Reaction (Verified 03/24/18 16:44) Other metoclopramide [From Reglan] Adverse Reaction (Verified 03/24/18 16:44) Other morphine Adverse Reaction (Verified 03/24/18 16:44) Low blood pressure pregabalin Adverse Reaction (Verified 03/24/18 16:44) Other Home Medications: Ambulatory Orders Medication Instructions Recorded ALPRAZolam [Xanax] 0.5 mg PO QHS PRN 02/13/15 Surgical History: Surgical History (Last Reviewed 12/20/17 @ 13:48 by Carissa Falcon) H/O cataract extraction Z98.49 bilateral S/P appendectomy Z90.49 S/P bilateral foot surgery Z98.890 S/P breast biopsy, bilateral Z98.890 with clip in left breast S/P cholecystectomy Z90.49 S/P partial lobectomy of lung Z90.2 left due to lung cancer S/P removal of ovarian cyst Z98.890, Z87.42 Surgical History: appendectomy, cholecystectomy, hysterectomy Smoking Status: Former smoker - *Family History Paternal Family History: Family History (Last Reviewed 12/20/17 @ 13:48 by Carissa Falcon) Mother Diabetes Lung cancer CHF (congestive heart failure) Hypertension Father CHF (congestive heart failure) Hypertension Brother Hypertension Sister Hypertension Diabetes Aunt Breast cancer Other Heart disease History Items: No pertinent history Review of Systems Constitutional: Reports: Anorexia, Weakness, Fatigue. Denies: Chills, Fever, Weight Change HEENT: Denies: Head Aches, Sinus Congestion, Sinus Drainage Cardiovascular: Denies: Chest Pain, Palpitations Respiratory: Denies: Cough, Shortness of breath at rest, Sputum production Gastrointestinal: Reports: Abdominal Pain, Diarrhea, Hematochezia, Nausea. Denies: Vomiting Genitourinary: Denies: Dysuria, Frequency, Hematuria Musculoskeletal: Reports: Back Pain, Joint Pain. Denies: Joint Tenderness Skin: Denies: Rash, Wounds Neurological: Denies: Numbness, Tingling, Focal weakness Psychiatric: Reports: Anxiety. Denies: Depression, Homicidal Ideations, Suicidal Ideations Hematologic/ Lymphatic: Denies: Easy Bruising, Easy Bleeding VTE Information - Inpt Only VTE Present on Admission: No VTE Mechan Device Prophylaxis: SCD's VTE Pharm Prophylaxis ordered?: No Reason prophylaxis not ordered:: Medical Contraindication - Lower GI bleed Patient Problems: Active and Suspected Problems (Last Reviewed 12/20/17 @ 13:48 by Carissa Falcon) Lower gastrointestinal bleeding (Acute) Right distal ureteral calculus (Acute) Left sided colitis (Acute) - Physical Exam General: Alert, Oriented x3, Cooperative HEENT: Atraumatic, PERRLA, EOMI, Normocephalic Oral: Dry Mucosa Neck: Supple, No JVD, Negative Carotid Bruits Lungs: Clear to auscultation, No rhonchi, No wheeze, No rales, Diminished - Air entry diminished in bilateral lung bases Cardiovascular: Regular rate, No murmurs Abdomen: Bowel Sounds Present, Soft, Tender - diffuse tenderness but predominantly over left upper and left lower quadrant. No rebound tenderness/guarding or rigidity. Extremities: Capillary Refill Less than 3 Seconds, Edema Skin: No rashes, No breakdown Musculoskeletal: No Tenderness to Palpation of Joints or Extremities, Arthritic Changes, Muscle Wasting Neurological: Cranial nerves II-XII grossly intact, Deep Tendon Reflexes 2+/4 and Symmetrical, Neuro grossly intact Psych/Mental Status: Normal Affect, Appropriate Vital Signs Temp Pulse Resp BP Pulse Ox 97.9 F 97 22 H 159/73 H 94 03/24/18 16:44 03/24/18 20:11 03/24/18 20:11 03/24/18 20:11 03/24/18 20:11 Oxygen Delivery Method Room Air Weight: 144 lb 9.972 oz Body Mass Index (BMI) 27.3 Microbiology Past 72 Hours 03/24/18 17:00 Stool Occult Blood (S[place]IAGO) - Final Stool Occult Blood Positive Laboratory Tests Past 24 Hrs Assessment/Plan All Active Problems (Last Reviewed 12/20/17 @ 13:48 by Carissa Falcon) Lower gastrointestinal bleeding (Acute) Right distal ureteral calculus (Acute) Left sided colitis (Acute) Atypical chest pain (Resolved) The patient is a 68 year old F with multiple comorbidities including left lung squamous cell carcinoma, follows Dr. Canas came to ED with abdominal pain and bright red blood per rectum since morning today. Patient further said she felt little nauseated yesterday but today in the morning she started having abdominal pain mainly in the mid abdomen got diffuse with cramps. She had 2-3 loose bowel movements and bright red rectal bleed. She had completed H pylori triple treatment about 3-4 months ago. She also had colonoscopy by Dr. Troy Ochoa about year ago and polypectomy was done which is reported as benign. Patient denies vomiting but has nausea. She feels dehydrated, thirsty. She denies fever or chills. In ED, she is tachycardic heart rate in 110s, respiratory [address] abdomen and pelvis with IV contrast was done and reported as required left-sided colon from the distal transverse to descending colon suspicious of mild colitis. Incidental finding of persistent right-sided hydronephrosis with suggestion of possible focus of punctate stone in the distal right ureter with abrupt narrowing of right ureter beyond this level. The patient denies prior history of urinary tract stone or renal angle pain or hematuria. Patient has not followed any urologist in the past. Patient was further admitted 1. Acute left-sided distal colitis, most probably infectious colitis: Patient is being admitted on the regular [facility] floor. H AND H 14.4/43.4. Baseline hemoglobin 12.8/38.2, therefore most likely hemoconcentration. IV fluid normal saline 150 mL/h. ER physician consulted Dr. Keith. Stool studies including leukocytes, C. difficile and enteric [place] panel ordered. Empirically, started on IV Cipro and Flagyl. Monitor intake and output. 2. Acute lower GI bleed, most probably secondary to infectious colitis: Monitor H AND H. Rest as above. 3. Mild hypokalemia: Potassium being replaced 4. Right distal ureteric obstruction possible punctate stone with proximal right hydronephrosis: UA is negative of hematuria. Patient is on IV antibiotics. Consult urology for further opinion and recommendation. 5 Left left lung squamous cell carcinoma, follows Dr. Canas. Patient does not have respiratory symptoms now 6. Benign essential hypertension, acquired hypothyroidism: Continue home medication. TSH and free T4 ordered. 7. Mild hyperglycemia: Glucose in [facility] is 188. Previous glucose in [facility] were normal. A1c ordered for tomorrow a.m. 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 DVT prophylaxis: Pharmacological prophylaxis contraindicated because of acute lower GI bleed. Bilateral SCDs This note was generated with [employer] dictation software. Every effort was made to ensure accuracy, however computerized observer gravity prospecting mistakes may persist. Code Visit Inpatient E AND M: 76885 Init Hosp L3 03/24/182105 <Electronically signed by Wicho Hernandez MD> Date Wicho Hernandez MD Cosigner Signature: Date (if applicable) CC: Yadira Alston MD; Wicho Hernandez MD Signed EMERGENCY DEPARTMENT Observed: 03/24/2018 Status: F Source: [place] SUMMARY 8:17 PM [facility] REPOSITORY [facility] Medical Records Department [address] [place] [address] Emergency Department Summary 03/24/18 1705 MR#: [id number] Acct: [id number] Name: KATHY OCASIO Rep #: [id number] : 1950 68 From: Sebastián Chase DO PCP: Yadira Alston MD Status: REG ER - ER Visit Summary Date of Service: 03/24/18 Chief Complaint: Abdominal pain History of Present Illness: The patient is a 68 F who presents with abdominal pain that began approximate 2 hours prior to arrival. Patient describes the pain is cramping and burning. Patient states the pain is over the lower abdomen. Patient states she did have a bowel movement and noted blood in her stools. She admits to some nausea but denies any vomiting. Patient admits to subjective chills but denies any fevers. Patient denies any dysuria or hematuria. Physical Examination: Vital signs are stable. Patient is afebrile. Patient is in no acute distress. Oral mucosa is pink and moist. Oropharynx is clear. Neck is supple. Trachea is midline. There is no JVD noted. Heart was regular rate and rhythm. Lungs are clear and equal bilaterally. Abdomen is soft. Bowel sounds are normal. There is no tenderness. There is no guarding noted. There are no masses palpated. Rectal exam showed good sphincter tone. There is minimal stool on exam. There is no gross blood noted. There were no masses palpated. Cranial nerves II through XII are intact. There are no focal motor or sensory deficits noted. The remaining physical exam is within normal limits. Test Results: CBC shows a normal hemoglobin at 14.4 and a normal white blood cell count. Comprehensive metabolic profile showed mild hypokalemia of 3.4. Urinalysis was normal. CT scan of the abdomen and pelvis with oral and IV contrast showed mild colitis and a possible stone at the right distal ureter with right hydronephrosis and hydroureter. Emergency Department Course and Treatment: Patient was given Bentyl initially. Patient had minimal relief with this. Patient was then given a dose of Dilaudid and Phenergan. Case was discussed with Dr. Hernandez. He will admit the patient to his service. Case was also discussed with Dr. Hardy. He will see the patient in consultation. Disposition: Admit to hospital Impression: 1. Lower GI bleed 2. Colitis 3. Right distal ureteral calculus This note was generated with [employer] dictation software. It may contain incorrect words, spelling, and punctuation that were not noted in review of the chart prior to signing ED Disposition - Plan for ED Patient: Disposition: Acute Care Hospital [facility] Chief Complaint: GI Bleed Diagnosis: Lower gastrointestinal bleeding, Colitis, Right distal ureteral calculus Referrals: Yadira Alston MD [Primary Care Provider] - What to do if you have Problems For any increased pain, shortness of breath, bleeding, nausea or vomiting, chest pain, or any unexpected problems, contact your Primary Care Provider. Call [facility] ([phone]) or report to the closest Emergency Room. Call 911 if necessary. 03/24/182016 <Electronically signed by Sebastián Chase DO> Date Sebastián Chase DO Cosigner Signature (If Indicated): Date CC: Yadira Alston MD URINALYSIS, COMPLETE Collected: 03/24/2018 Status: F Source: [place] 5:54 PM [facility] REPOSITORY Order Comment: Order Date: 03/24/18 How was Urine Obtained? CLEAN CATCH TYPE CODE TESTS RESULT OUT OF RANGE REFERENCE UNITS LAB L400.3000 Yellow COLOR Normal Yellow LAB L400.3050 Clear Normal CLARITY Clear LAB L400.3200 Normal mg/dl Normal GLUCOSE, UR Normal LAB L400.3300 Negative mg/dL Normal BILIRUBIN URINE Negative LAB L400.3400 Negative mg/dl Normal KETONE UR Negative LAB L400.3465 1.002-1.030 Normal SP.GR. DIPSTX 1.010 LAB L400.3550 5.0 - 8.0 pH UR Normal 6.5 LAB L400.3600 Negative mg/dl PROT Normal DIPSTX Negative LAB L400.3700 Normal mg/dl Normal UROBILI Normal LAB L400.3750 Negative Normal NITRITE UR Negative LAB L400.3780 Negative /ul Normal OCCULT BLOOD-UR Negative LAB L400.3800 Negative /ul LEUK Normal ESTERASE Negative LAB L400.4050 0-5 /hpf WBC 0 Normal SEEN LAB L400.4100 0-5 /hpf 0 Normal RBC-UA SEEN LAB L400.4150 5-10 /hpf SQUAM 0 Normal EPI SEEN LAB L400.4300 None Seen /hpf 0 Normal BACTERIA SEEN LAB L400.4350 <or=2+ /hpf 0 Normal MUCUS, URINE SEEN Performed By: #### L400.0001 #### [facility] Laboratory [address] [facility] [place], [address] ABDOMEN/PELVIS WITH Observed: 03/24/2018 Status: F Source: [place] CONTRAST 5:05 PM [facility] REPOSITORY [facility] Imaging Services [address] [place] [address] Abdomen/Pelvis WITH Contrast MR#: [id number] Acct: [id number] Name: KATHY OCASIO Rep #: [id number] : 1950 F 68 From: Elizabet Quinones MD PCP: Yadira Alston MD Status: REG ER Study: Abdomen/Pelvis WITH Contrast Date of Exam: 03/24/18 Exam# [id number] Ordering Dr: Sebastián Chase DO STUDY: CT ABDOMEN AND PELVIS WITH CONTRAST REASON FOR EXAM: Female, 68 years old. Low to mid abdominal pain nausea GI bleed RADIATION DOSAGE (If Supplied By Facility): CTDIvol = ( 15.95 ) mGy, DLP = ( 744.68 ) mGycm TECHNIQUE: Transaxial images were obtained from the dome of the diaphragm to the symphysis pubis without oral contrast. 100ML ml of Isovue 300 contrast was administered. Sagittal and coronal images were reconstructed. Individualized dose optimization techniques were used for this CT. COMPARISON: December 15, 2016 CT scan abdomen and pelvis, January 03, 2018 CT scan abdomen and pelvis FINDINGS: The visualized lung bases are unremarkable. The visualized portions of the heart are within normal limits. Normal liver. There is non-visualization of the gallbladder, which may be secondary to either contraction or a prior cholecystectomy. Normal spleen. Normal pancreas. Normal bilateral adrenal glands. There is [id number] right hydronephrosis and right hydroureter which is new since December 15, 2016 and persisting and worse since January 03, 2018. There is minimal left hydroureter. The bladder is distended. There is a small hiatal hernia. Normal small intestine. There are numerous diverticula present within the descending colon. There is visualized focal mild mucosal thickening and a featureless appearance of the bowel within the distal transverse colon to the distal descending colon. The appendix is visualized and appears normal. The aorta is partially calcified. There is a narrowed appearance of the aortic lumen and caliber measuring approximately 7.0 x 1.0 mm. There is calcification in the bilateral iliac arteries. Normal inferior vena cava. Normal retroperitoneum. The bladder is overdistended. The bladder measures 12 x 5.6 x 10.8 cm. There is absence of the uterus consistent with a prior hysterectomy. Normal abdominal wall. Normal osseous structures. CT/Abdomen/Pelvis WITH Contrast IMPRESSION: There is persistent right-sided hydronephrosis. There is a suggestion of a possible focus of punctate stone or other potentially intraluminal material infection or mass within the distal right ureter image #83 of the axial views. It is at this level that there is abrupt narrowing of the right ureter. Recommend consideration for follow-up urology study consideration for urogram. There is a decompressed mildly thick-walled appearance of the colon from the distal transverse colon to the descending colon. Findings are suspicious for mild colitis. Status post cholecystectomy. Status post hysterectomy. Diverticulosis no visualized diverticulitis. Electronically Signed: Elizabet Quinones MD at 19:17 EST Tel , Service support , CC: Sebastián Chase DO; Yadira Alston MD Seam Taper Machine: Signed CBC W/DIFF, AUTOMATED Collected: 03/24/2018 Status: F Source: [place] 5:00 PM [facility] REPOSITORY TYPE CODE TESTS RESULT OUT OF RANGE REFERENCE UNITS LAB L100.1000 4.4-11.0 K/mm3 Normal WBC 9.2 LAB L100.1200 4.2-5.4 M/mm3 Normal RBC 4.70 LAB L100.1300 12.0-15.0 g/dl Normal HGB 14.4 LAB L100.1400 37-47 % Normal HCT 43.3 LAB L100.1500 81-99 fL Normal MCV 92.1 LAB L100.1600 27.0-32.0 pg Normal MCH 30.6 LAB L100.1700 32-36 g/gl Normal MCHC 33.3 LAB L100.1810 11.6-14.6 % Normal RDW CV 13.4 LAB L100.1820 35.1-43.9 fl High RDW SD 45.0 LAB L100.1900 150-450 K/mm3 Normal PLT 342 LAB L100.2000 6.2-12.0 fl Normal MPV 9.7 LAB L100.2100 47-70 % Normal NEUT% 47.3 LAB L100.2200 19-41 % High LY% 41.2 LAB L100.2300 0-10 % Normal MONO% 9.5 LAB L100.2400 0-5 % Normal EO% 1.6 LAB L100.2500 0-1 % Normal BASO% 0.3 LAB L100.2550 0.0-0.9 % Normal IM GRAN % 0.100 Result Comment: IG% - Immature Granulocytes (promyelocytes, myelocytes and metamyelocytes) > 1% indicates that a LEFT SHIFT is Present. LAB L100.2620 2.0-7.7 X10 3/uL Normal Absolute Neut 4.3 LAB L100.2720 0.83-4.51 X10 3/ul Normal Absolute Lymph 3.79 Performed By: #### L100.0100 #### [facility] [address] [place], [address] Observed: 03/24/2018 Status: F Source: [place] STOOL OCCULT BLOOD 5:00 PM [facility] REPOSITORY Order Date: 03/24/18 Has pt arrived? Y STOB iFOB Normal Reference Range = Negative CRITICAL VALUE VERIFIED. CALLED TO RAND SALMERON 03/24/18 1740 Michele Beck. RESULTS READ BACK BY RAND . Occult Blood Positive ORGANISM 1: OCCULT BLOOD POSITIVE Performed By: #### M100.7900 #### [facility] Laboratory [address] [place], [address] COMPREHENSIVE METABOLIC Collected: 03/24/2018 Status: F Source: [place] PROFIL 5:00 PM [facility] REPOSITORY TYPE CODE TESTS RESULT OUT OF RANGE REFERENCE UNITS LAB L501.0100 74-106 mg/dL High GLU 188 Result Comment: Fasting Glucose result greater than or equal to 126 mg/dL suggests DIABETES MELLITUS per A.D.A. criteria. Please note revised GLUCOSE reference range effective 2017. LAB L501.1000 7-18 mg/dL Normal BUN 12 LAB L501.1100 0.55-1.02 mg/dL Normal CREAT,SERUM 0.97 Result Comment: The validity of the calculated GFR AND GFRAA in patients over 70 years has not been determined. Clinical correlation is essential. LAB L501.1110 >60 mL/min Normal EST GFR 60 Result Comment: Non- GFR Calc LAB L501.1115 >60 mL/min Normal EST GFR - AA 73 Result Comment: GFR Calc LAB L501.1255 ml/min Normal Estimated CRCL 41.30 LAB L501.1300 10-20 RATIO Normal BUN/CRE 12.3 LAB L501.1500 6.4-8. g/dL Normal 2 T PROT 8.2 LAB L501.1800 3.2-5. g/dL Normal 0 ALB 4.1 LAB L501.1950 2.2-4. g/dL Normal 2 GLOB 4.1 LAB L501.2000 0.9-2. RATIO Normal 4 A/G 1.0 LAB L501.2200 8.5-10 mg/dL Normal .1 CA 9.0 LAB L501.4100 15-37 U/L Normal AST 23 LAB L501.4305 45-117 U/L Normal ALK P 94 LAB L501.4405 13-56 U/L Normal ALT 34 LAB L501.4600 0.20-1 mg/dL Normal .00 T BILI 0.30 LAB L501.5300 136-14 mmol/L Normal 5 NA 140 LAB L501.5600 3.5-5. mmol/L Low 1 K 3.4 LAB L501.5900 98-107 mmol/L Normal CL 106 LAB L501.6100 21.0-3 mmol/L Normal 2.0 CO2 24.0 LAB L501.6200 5-15 Normal GAP 10 Performed By: #### L500.4050, L501.2450 #### [facility] [address] [place], [address] LIPASE Collected: 03/24/2018 Status: F Source: [place] 5:00 PM [facility] REPOSITORY TYPE CODE TESTS RESULT OUT OF RANGE REFERENCE UNITS LAB L501.2450 73-393 U/L Normal LIPASE 170 Performed By: #### L500.4050, L501.2450 #### [facility] [address] [place], [address] ABDOMEN/PELVIS WITH Observed: 01/03/2018 Status: F Source: [place] CONTRAST 6:13 PM [facility] REPOSITORY [facility] Imaging Services [address] [place] [address] Abdomen/Pelvis WITH Contrast MR#: [id number] Acct: [id number] Name: KATHY OCASIO Rep #: [id number] : 1950 F 67 From: Cayden Brown MD PCP: Tim Alexis MD, Chi Status: REG CLI Study: Abdomen/Pelvis WITH Contrast Date of Exam: 01/03/18 Exam# [id number] Ordering Dr: Tim Alexis MD STUDY: CT ABDOMEN AND PELVIS WITH CONTRAST REASON FOR EXAM: Female, 67 years old. Abdominal pain. RADIATION DOSAGE (If Supplied By Facility): CTDIvol = ( 17.35 ) mGy, DLP = ( 726.03 ) mGycm TECHNIQUE: Transaxial images were obtained from the dome of the diaphragm to the symphysis pubis without oral contrast. 100ML ml of Isovue 300 contrast was administered. Sagittal and coronal images were reconstructed. Individualized dose optimization techniques were used for this CT. COMPARISON: 04/09/2017 FINDINGS: The visualized lung bases are clear. The visualized portions of the heart and pericardium are within normal limits. The patient is status post cholecystectomy. The liver is within normal limits. There are no suspicious hepatic lesions. The spleen is normal in size. The pancreas is within normal limits. The adrenal glands are within normal limits. There is mild right hydroureteronephrosis with no cause identified on this study. There are no renal or ureteral stones. There is no left hydronephrosis. There are no focal renal lesions. Normal visualized stomach. There is no bowel obstruction or inflammation. The patient is status post appendectomy. The aorta is normal in caliber. There are atherosclerotic calcifications noted in the aorta and its branches. There is no abdominal or pelvic free air, free fluid, fluid collection or lymphadenopathy. The patient is status post hysterectomy. There are no destructive osseous lesions. CT/Abdomen/Pelvis WITH Contrast IMPRESSION: Mild right hydroureteronephrosis with no cause identified on this study. No urinary calculi. No left hydronephrosis. No bowel obstruction or inflammation. Status post appendectomy. Status post cholecystectomy. Atherosclerosis. Electronically Signed: Cayden Brown, at 19:06 EDT Tel , Service support , CC: Tim Alexis MD Seam Taper Machine: Signed Observed: 01/03/2018 Status: F Source: [place] CULTURE, URINE 5:00 PM [facility] REPOSITORY Urine Culture ORGANISM 1: Mixed Gram Positive Organisms [place] Count 1000-10,000 Performed By: #### M100.0650 #### [facility] [place], [address] CBC W/DIFF, AUTOMATED Collected: 01/03/2018 Status: F Source: [place] 4:45 PM [facility] REPOSITORY TYPE CODE TESTS RESULT OUT OF RANGE REFERENCE UNITS LAB L100.1000 4.4-11.0 K/mm3 Normal WBC 7.3 LAB L100.1200 4.2-5.4 M/mm3 Normal RBC 4.69 LAB L100.1300 12.0-15.0 g/dl Normal HGB 14.3 LAB L100.1400 37-47 % Normal HCT 43.2 LAB L100.1500 81-99 fL Normal MCV 92.1 LAB L100.1600 27.0-32.0 pg Normal MCH 30.5 LAB L100.1700 32-36 g/gl Normal MCHC 33.1 LAB L100.1810 11.6-14.6 % Normal RDW CV 13.2 LAB L100.1820 35.1-43.9 fl Normal RDW SD 43.8 LAB L100.1900 150-450 K/mm3 Normal PLT 296 LAB L100.2000 6.2-12.0 fl Normal MPV 9.5 LAB L100.2100 47-70 % Normal NEUT% 52.3 LAB L100.2200 19-41 % Normal LY% 36.4 LAB L100.2300 0-10 % Normal MONO% 9.3 LAB L100.2400 0-5 % Normal EO% 1.5 LAB L100.2500 0-1 % Normal BASO% 0.4 LAB L100.2550 0.0-0.9 % Normal IM GRAN % 0.100 Result Comment: IG% - Immature Granulocytes (promyelocytes, myelocytes and metamyelocytes) > 1% indicates that a LEFT SHIFT is Present. LAB L100.2620 2.0-7.7 X10 3/uL Normal Absolute Neut 3.8 LAB L100.2720 0.83-4.51 X10 3/ul Normal Absolute Lymph 2.66 Performed By: #### L100.0100 #### [facility] [place], [address] COMPREHENSIVE METABOLIC Collected: 01/03/2018 Status: F [facility] REPOSITORY TYPE CODE TESTS RESULT OUT OF RANGE REFERENCE UNITS LAB L501.0100 74-106 mg/dL Normal GLU 94 Result Comment: Please note revised GLUCOSE reference range effective 2017. LAB L501.1000 7-18 mg/dL Normal BUN 11 LAB L501.1100 0.55-1.02 mg/dL Normal CREAT,SERUM 0.82 Result Comment: The validity of the calculated GFR AND GFRAA in patients over 70 years has not been determined. Clinical correlation is essential. LAB L501.1110 >60 mL/min Normal EST GFR 73 Result Comment: Non- GFR Calc LAB L501.1115 >60 mL/min Normal EST GFR - AA 88 Result Comment: GFR Calc LAB L501.1300 10-20 RATIO Normal BUN/CRE 13.3 LAB L501.1500 6.4-8.2 g/dL T Normal PROT 8.0 LAB L501.1800 3.2-5.0 g/dL Normal ALB 3.9 LAB L501.1950 2.2-4.2 g/dL Normal GLOB 4.1 LAB L501.2000 0.9-2.4 RATIO Normal A/G 1.0 LAB L501.2200 8.5-10.1 mg/dL CA Normal 9.4 LAB L501.4100 15-37 U/L Normal AST 25 Result Comment: Slight Hemolysis, Result may be falsely increased. LAB L501.4305 45-117 U/L Normal ALK P 77 LAB L501.4405 13-56 U/L Normal ALT 32 LAB L501.4600 0.20-1.00 mg/dL Normal T BILI 0.20 LAB L501.5300 136-145 mmol/L Normal NA 143 LAB L501.5600 3.5-5.1 mmol/L Normal K 3.8 Result Comment: Slight Hemolysis, Result may be falsely increased. LAB L501.5900 98-107 mmol/L Normal CL 106 LAB L501.6100 21.0-32.0 mmol/L Normal CO2 25.0 LAB L501.6200 5-15 Normal GAP 12 Performed By: #### L500.4050 #### [facility] [address] [place], [address] Observed: 12/20/2017 Status: F Source: [place] CULTURE, DEEP WOUND 6:18 PM [facility] REPOSITORY Gram Stain Gram Stain No Gram negative diplococci No Yeast Like Organisms No organisms seen Wound Culture No growth aerobically. Cult, Anaerobic Studies have confirmed that Anaerobic Gram Positive Cocci are routinely susceptible to: Penicillin/Ampicillin, Ampicillin/Sulbactam, Piperacillin/Tazobactam, Cefoxatin, Ertapenem, Imipenem, Meropenem and Metronidazole and vary in resistance to: Clindamycin and Moxifloxacin. ORGANISM 1: Anaerobic cocci Performed By: #### M100.1500 #### [facility] [address] [place], [address] EMERGENCY DEPARTMENT COORDINATOR OFFICE VISIT Observed: 12/20/2017 Status: F Source: [place] REPORT 2:42 PM [facility] REPOSITORY [facility] [address] [place], [place] [address]. [address] [place] [address] OFFICE VISIT Date of Service: 12/20/17 MR#: [id number] Acct: [id number] Name: KATHY OCASIO Rep #: [id number] : 1950 Provider: MARCO ANTONIO Torres Age/Sex: 67/F Location: [facility] [place] Status: Signed Intake Vital Signs12/20/17 Height 5 ft 1 in 12/20/17 Weight: 142 lb 2 oz 12/20/17 Body Mass Index (BMI) 26.8 12/20/17 Blood Pressure 139/73 Intake Visit Reasons: vaginal sore not getting better Allergies doxycycline Allergy (Verified 12/20/17 13:47) Itching cephalexin Adverse Reaction (Verified 12/20/17 13:47) Other citalopram Adverse Reaction (Verified 12/20/17 13:47) Other metoclopramide [From Reglan] Adverse Reaction (Verified 12/20/17 13:47) Other morphine Adverse Reaction (Verified 12/20/17 13:47) Low blood pressure pregabalin Adverse Reaction (Verified 12/20/17 13:47) Other Medications ALPRAZolam [Xanax] 0.5 mg PO QHS PRN 02/13/15 [History Confirmed 12/20/17] Felodipine [Plendil] 10 mg PO DAILY 02/13/15 [History Confirmed 12/20/17] Levothyroxine [Synthroid] 50 mcg PO DAILY 02/13/15 [History Confirmed 12/20/17] Acetaminophen [Tylenol] 500 mg PO QHS PRN PRN 08/17/17 [History Confirmed 12/20/17] Atorvastatin Calcium [Lipitor] 10 mg PO QHS 08/17/17 [History Confirmed 12/20/17] Melatonin 5 - 10 mg PO PRN PRN 08/17/17 [History Confirmed 12/20/17] fluconazole 150 mg tablet 150 mg PO .COMPLEX #2 tab 12/20/17 [Rx Confirmed 12/20/17] sulfamethoxazole 800 mg-trimethoprim 160 mg tablet 1 tab PO BID 10 Days #20 tab 12/20/17 [Rx Confirmed 12/20/17] Is last menstrual period known: No Post menopausal: No Patient : No : No PFSH Medical History Fibromyalgia (Chronic) IBS (irritable bowel syndrome) (Chronic) Surgical History H/O cataract extraction (Resolved) S/P appendectomy (Resolved) S/P bilateral foot surgery (Resolved) S/P breast biopsy, bilateral (Resolved) S/P cholecystectomy (Resolved) S/P partial lobectomy of lung (Resolved) S/P removal of ovarian cyst (Resolved) Family History Mother Diabetes Lung cancer CHF (congestive heart failure) Hypertension Father CHF (congestive heart failure) Hypertension Brother Hypertension Sister Hypertension Diabetes Aunt Breast cancer Other Heart disease Social History Smoking Status: Former smoker alcohol intake: never substance use type: does not use caffeine: Yes what type of physical activity do you participate in: none seatbelt use: always do you feel safe at home: Yes additional social history: -[place] Patient is retired HPI vaginal sore not getting better: Details: KATHY OCASIO is a 67 year old who presents for Pregancy History 3 Elective abortions Hx Para 3 Spontaneous abortions Past Pregnancies Del. DateName GA/Weeks Outcome Route Bth WeighInfant GeLabor LgtAnesthesiDel LocatProvider FOB t n h a n Unknown Angelina Unknown Preeti Unknown Prince Exam Other: Right side of mons with persistent 2cm indurated and erythematous lesion, minimal drainage. No flatulence. Wound culture collected Assessment AND Plan Problems 1. Hydradenitis L73.2 Plan Stop clindamycin. Start bactrim. Warm soaks, loose clothing RTO prn, worsening symptoms Orders Orders: Medications New: fluconazole 150 mg PO take one po now and repeat in 3 day s sulfamethoxazole-trimethoprim 800-160 mg (Bac1 tab PO BID 10 days trim DS) Discontinued: Plan Detail Goals Decrease thoracic pain and inflammation Increase ROM Barriers Previous surgery Coding Level of Care Code Off vis,est,level 3 Diagnoses Hydradenitis L73.2 12/20/17 1442 <Electronically signed by Merlyn CEBALLOS> Date Merlyn CEBALLOS Cosigner Signature: Date (if applicable) CC: EMERGENCY DEPARTMENT COORDINATOR OFFICE VISIT Observed: 12/13/2017 Status: F Source: [place] REPORT 2:23 PM [facility] REPOSITORY [facility] [address] [place] [address] [address] [place]HAEL Barb[place] [address] OFFICE VISIT Date of Service: 12/13/17 MR#: [id number] Acct: [id number] Name: KATHY OCASIO Rep #: [id number] : 1950 Provider: MARCO ANTONIO Torres Age/Sex: 67/F Location: [facility] [place] Status: Signed Intake Vital Signs12/13/17 Height 5 ft 1 in 12/13/17 Weight: 143 lb 2 oz 12/13/17 Body Mass Index (BMI) 27.0 12/13/17 Blood Pressure 120/68 Intake Visit Reasons: VAGINAL SORE Coat Finisher Required: No Is patient in pain?: No Allergies doxycycline Allergy (Verified 12/13/17 14:04) Itching cephalexin Adverse Reaction (Verified 12/13/17 14:04) Other citalopram Adverse Reaction (Verified 12/13/17 14:04) Other metoclopramide [From Reglan] Adverse Reaction (Verified 12/13/17 14:04) Other morphine Adverse Reaction (Verified 12/13/17 14:04) Low blood pressure pregabalin Adverse Reaction (Verified 12/13/17 14:04) Other Medications ALPRAZolam [Xanax] 0.5 mg PO QHS PRN 02/13/15 [History Confirmed 12/13/17] Felodipine [Plendil] 10 mg PO DAILY 02/13/15 [History Confirmed 12/13/17] Levothyroxine [Synthroid] 50 mcg PO DAILY 02/13/15 [History Confirmed 12/13/17] Acetaminophen [Tylenol] 500 mg PO QHS PRN PRN 08/17/17 [History Confirmed 12/13/17] Atorvastatin Calcium [Lipitor] 10 mg PO QHS 08/17/17 [History Confirmed 12/13/17] Melatonin 5 - 10 mg PO PRN PRN 08/17/17 [History Confirmed 12/13/17] clindamycin HCl 300 mg capsule 300 mg PO TID #30 cap 12/13/17 [Rx Confirmed 12/13/17] Is last menstrual period known: No Post menopausal: Yes Patient : No : No PFSH Medical History Fibromyalgia (Chronic) IBS (irritable bowel syndrome) (Chronic) Surgical History H/O cataract extraction (Resolved) S/P appendectomy (Resolved) S/P bilateral foot surgery (Resolved) S/P breast biopsy, bilateral (Resolved) S/P cholecystectomy (Resolved) S/P partial lobectomy of lung (Resolved) S/P removal of ovarian cyst (Resolved) Family History Mother Diabetes Lung cancer CHF (congestive heart failure) Hypertension Father CHF (congestive heart failure) Hypertension Brother Hypertension Sister Hypertension Diabetes Aunt Breast cancer Other Heart disease Social History Smoking Status: Former smoker alcohol intake: never substance use type: does not use caffeine: Yes what type of physical activity do you participate in: none seatbelt use: always do you feel safe at home: Yes additional social history: -[place] Patient is retired HPI VAGINAL SORE: Details: KATHY OCASIO is a 67 year old who presents new patient for sore lump in right groin X 3 weeks. States small amount drainage to area last night Pregancy History 3 Elective abortions Hx Para 3 Spontaneous abortions Past Pregnancies Del. DateName GA/Weeks Outcome Route Bth WeighInfant GeLabor LgtAnesthesiDel LocatProvider FOB t n h a n Unknown Angelina Unknown Preeti Unknown Prince Exam Other: Right groin with raised erythematous firm 1cm mass consistent with hydradenitis Assessment AND Plan Problems 1. Hydradenitis L73.2 Plan Rx clindamycin Warm compresses RTO prn Medications New: Plan Detail Goals Decrease thoracic pain and inflammation Increase ROM Barriers Previous surgery Coding Level of Care Code Off vis,new,level 3 Diagnoses Hydradenitis L73.2 12/13/17 1423 <Electronically signed by Merlyn CEBALLOS> Date Merlyn CEBALLOS Cosigner Signature: Date (if applicable) CC: CHIROPRACTIC REPORT Observed: 10/27/2017 Status: F Source: [place] 2:13 PM [facility] [address] [place] [id number] OFFICE VISIT Date of Service: 10/27/17 MR#: [id number] Acct: [id number] Name: KATHY OCASIO Rep #: [id number] : 1950 Provider: Carol Cisneros D.C. Age/Sex: 67/F Location: [facility] Status: Signed Intake Vital Signs10/27/17 Height 5 ft 1 in 10/27/17 Weight: 139 lb 10/27/17 Body Mass Index (BMI) 26.2 Intake Visit Reasons: back pain Chief Complaint: back pain Is patient in pain?: Yes Allergies doxycycline Allergy (Verified 08/17/17 18:19) Itching cephalexin Adverse Reaction (Verified 08/17/17 18:19) Other citalopram Adverse Reaction (Verified 08/17/17 18:19) Other metoclopramide [From Reglan] Adverse Reaction (Verified 08/17/17 18:19) Other morphine Adverse Reaction (Verified 08/17/17 18:19) Low blood pressure pregabalin Adverse Reaction (Verified 08/17/17 18:19) Other Medications ALPRAZolam [Xanax] 0.5 mg PO QHS PRN 02/13/15 [History Confirmed 08/17/17] Felodipine [Plendil] 10 mg PO DAILY 02/13/15 [History Confirmed 08/17/17] Levothyroxine [Synthroid] 50 mcg PO DAILY 02/13/15 [History Confirmed 08/17/17] Acetaminophen [Tylenol] 500 mg PO QHS PRN PRN 08/17/17 [History Confirmed 08/17/17] Atorvastatin Calcium [Lipitor] 10 mg PO QHS 08/17/17 [History Confirmed 08/17/17] Melatonin 5 - 10 mg PO PRN PRN 08/17/17 [History Confirmed 08/17/17] PFS Medical History IBS (irritable bowel syndrome) (Acute) Social History Smoking Status: Former smoker alcohol intake: never substance use type: does not use what type of physical activity do you participate in: none HPI back pain : Chief Complaint: back pain Visit Number: 10 Details: KATHY OCASIO is a 67 year old F who presents with R sided thoracic pain. She states that overall her pain has been doing better until two days ago when she began having a slight twinge and ache in the mid back, towards the R side. Still when mowing the yard or doing any frequent bending the pain does increase. Today the patient rates her pain a 3/10 and describes it as a dull ache that wraps around the L rib cage area, she denies any numbness, tingling or radiculopathy. Her back pain has since subsided leaving her with only a ache after doing frequent bending and walking. Onset: 10/20/17 Location: L thoracic Duration: infrequent Aggravating or associated factors: twisting, pushing and leannig forward Relieving factors: chiro Pain Quality: aching, dull, sharp Exam Musc General: Yes joint tenderness (T5, T6, T7) and normal gait; no normal posture (high right shoulder) Thoracic/Lumbar Spine: pain with thoraco-lumbar ROM (improved), scoliosis, thor and lumb spine abnorm to inspection, thoraco-lumbar spasm (slightly improved) on the left in the mid thoracic and in the lower thoracic, thoraco-lumbar ROM normal Office Procedures Chiropractic Treatments Procedures Manipulation: 1-2 regions (T5, T6, T7) Traction, Mechanical: Yes Details: Lumbar traction 15 min Assessment AND Plan 1. Thoracic neuritis M54.14 Orders Orders: 2. Segmental and somatic dysfunction of thoracic region M99.02 Orders Orders: 3. Segmental and somatic dysfunction of lumbar region M99.03 Orders Orders: Plan Detail Additional Comments Release patient from acute treatment plan. She has improved greatly and has been instructed to follow up should an exacerbation occur. Due to her previous lung surgery, the prognosis suggests that the pain may return. Goals Decrease thoracic pain and inflammation Increase ROM Barriers Previous surgery Follow Up PRN Coding Level of Care Code No Charge Diagnoses Thoracic neuritis M54.14 Segmental and somatic dysfunction of thoracic region M99.02 Segmental and somatic dysfunction of lumbar region M99.03 Additional Codes Procedures - Traction, Mechanical: Yes (33059) Procedures - Manipulation: 1-2 regions (79370) 10/27/17 1413 <Electronically signed by Carol Cisneros D.C.> Date Carol Cisneros D.C. Cosigner Signature: Date (if applicable) CC: CHIROPRACTIC REPORT Observed: 10/13/2017 Status: F Source: [place] 3:45 PM [facility] [address] [place] [address] OFFICE VISIT Date of Service: 10/13/17 MR#: [id number] Acct: [id number] Name: KATHY OCASIO Rep #: [id number] : 1950 Provider: Carol Cisneros D.C. Age/Sex: 67/F Location: [facility] Status: Signed Intake Vital Signs10/13/17 Height 5 ft 1 in 10/13/17 Weight: 139 lb 10/13/17 Body Mass Index (BMI) 26.2 Intake Visit Reasons: back pain Is patient in pain?: Yes Allergies doxycycline Allergy (Verified 08/17/17 18:19) Itching cephalexin Adverse Reaction (Verified 08/17/17 18:19) Other citalopram Adverse Reaction (Verified 08/17/17 18:19) Other metoclopramide [From Reglan] Adverse Reaction (Verified 08/17/17 18:19) Other morphine Adverse Reaction (Verified 08/17/17 18:19) Low blood pressure pregabalin Adverse Reaction (Verified 08/17/17 18:19) Other Medications ALPRAZolam [Xanax] 0.5 mg PO QHS PRN 02/13/15 [History Confirmed 08/17/17] Felodipine [Plendil] 10 mg PO DAILY 02/13/15 [History Confirmed 08/17/17] Levothyroxine [Synthroid] 50 mcg PO DAILY 02/13/15 [History Confirmed 08/17/17] Acetaminophen [Tylenol] 500 mg PO QHS PRN PRN 08/17/17 [History Confirmed 08/17/17] Atorvastatin Calcium [Lipitor] 10 mg PO QHS 08/17/17 [History Confirmed 08/17/17] Melatonin 5 - 10 mg PO PRN PRN 08/17/17 [History Confirmed 08/17/17] PFSH Medical History IBS (irritable bowel syndrome) (Acute) Social History Smoking Status: Former smoker alcohol intake: never substance use type: does not use what type of physical activity do you participate in: none HPI back pain : Chief Complaint: back pain Visit Number: 9 Details: KATHY OCASIO is a 67 year old F who presents with mid back pain. She states that over the weekend she was weeding which caused increased mid back pain. Today the patient rates her pain a 3/10 and describes it as a dull ache that comes and goes. Bending, lifting, twisting and rotation causes a slight increase in achiness. Kathy denies any numbness, tingling or sharp pain. She also states that her L sided rib pain is gone. Onset: 10/09/17 Location: mid back Duration: occasional Aggravating or associated factors: bending, lifting and twisting Relieving factors: chiro Pain Quality: aching, dull, cramping Exam Musc General: Yes joint tenderness (T5, T6, T7), decreased ROM and normal gait; no normal posture (high right shoulder) Thoracic/Lumbar Spine: pain with thoraco-lumbar ROM (slightly improved) with rotation to the right, with rotation to the left and other (extension), thoraco- lumbar ROM limited (normal range w pain), scoliosis, thor and lumb spine abnorm to inspection, thoraco-lumbar spasm (slightly improved) on the left in the mid thoracic and in the lower thoracic Office Procedures Chiropractic Treatments Procedures Manipulation: 1-2 regions (T5, T6, T7) Traction, Mechanical: Yes Details: Lumbar traction 15 min Assessment AND Plan 1. Thoracic neuritis M54.14 Orders Orders: 2. Segmental and somatic dysfunction of lumbar region M99.03 Orders Orders: 3. Segmental and somatic dysfunction of thoracic region M99.02 Orders Orders: Plan Detail Additional Comments Monitor for exacerbation as visit frequency is decreased. Goals Decrease thoracic pain and inflammation Increase ROM Barriers Previous surgery Follow Up 2 Weeks Coding Level of Care Code No Charge Diagnoses Thoracic neuritis M54.14 Segmental and somatic dysfunction of lumbar region M99.03 Segmental and somatic dysfunction of thoracic region M99.02 Additional Codes Procedures - Traction, Mechanical: Yes (28818) Procedures - Manipulation: 1-2 regions (63761) 10/13/17 1542 <Electronically signed by Carol Cisneros D.C.> Date Carol Cisneros D.C. Cosign Signature: Date (if applicable) CC: CHIROPRACTIC REPORT Observed: 10/03/2017 Status: F Source: [place] 8:43 AM [facility] [address] [place] [address] OFFICE VISIT Date of Service: 09/29/17 MR#: [id number] Acct: [id number] Name: KATHY OCASIO Rep #: [id number] : 1950 Provider: Carol Cisneros D.C. Age/Sex: 67/F Location: [facility] Status: Signed Intake Vital Signs09/29/17 Height 5 ft 1 in 09/29/17 Weight: 139 lb 09/29/17 Body Mass Index (BMI) 26.2 Intake Visit Reasons: back pain Chief Complaint: chest pain Is patient in pain?: Yes Allergies doxycycline Allergy (Verified 08/17/17 18:19) Itching cephalexin Adverse Reaction (Verified 08/17/17 18:19) Other citalopram Adverse Reaction (Verified 08/17/17 18:19) Other metoclopramide [From Reglan] Adverse Reaction (Verified 08/17/17 18:19) Other morphine Adverse Reaction (Verified 08/17/17 18:19) Low blood pressure pregabalin Adverse Reaction (Verified 08/17/17 18:19) Other Medications ALPRAZolam [Xanax] 0.5 mg PO QHS PRN 02/13/15 [History Confirmed 08/17/17] Felodipine [Plendil] 10 mg PO DAILY 02/13/15 [History Confirmed 08/17/17] Levothyroxine [Synthroid] 50 mcg PO DAILY 02/13/15 [History Confirmed 08/17/17] Acetaminophen [Tylenol] 500 mg PO QHS PRN PRN 08/17/17 [History Confirmed 08/17/17] Atorvastatin Calcium [Lipitor] 10 mg PO QHS 08/17/17 [History Confirmed 08/17/17] Melatonin 5 - 10 mg PO PRN PRN 08/17/17 [History Confirmed 08/17/17] [facility] Medical History IBS (irritable bowel syndrome) (Acute) Social History Smoking Status: Former smoker alcohol intake: never substance use type: does not use what type of physical activity do you participate in: none HPI back pain: Chief Complaint: back pain Visit Number: 9 Details: KATHY OCASIO is a 67 year old F here today for low back pain. Today she states she only has a slight ache in the low back, she denies any rib or chest pain. The patient was able to walk two miles yesterday without any increased pain. Today the patient rates her pain a 2/10 and describes it as a slight dull ache in the low back, she denies any numbness, tingling, or radiculopathy. Location: low back Duration: occasional Aggravating or associated factors: frequent bending and lifting Relieving factors: adjustment Pain Quality: aching, dull Exam Musc General: Yes joint tenderness (T5, T6, T7), decreased ROM and normal gait; no normal posture (high right shoulder) Thoracic/Lumbar Spine: pain with thoraco-lumbar ROM (slightly improved) with rotation to the right, with rotation to the left and other (extension), thoraco- lumbar ROM limited (normal range w pain), scoliosis, thor and lumb spine abnorm to inspection, thoraco-lumbar spasm (slightly improved) on the left in the mid thoracic and in the lower thoracic Neuro General: alert, awake, oriented x3, gait normal, no focal motor deficits Ortho Test CERVICAL THORACIC [place]: Positive, [place] pain: Negative [place]: Negative LUMBAR Office Procedures Chiropractic Treatments Procedures Manipulation: 1-2 regions (T6, T7) Traction, Mechanical: Yes Details: Lumbar traction 15 min Assessment AND Plan 1. Thoracic neuritis M54.14 Orders Orders: 2. Segmental and somatic dysfunction of thoracic region M99.02 Orders Orders: Plan Detail Other Orders Orders: Additional Comments Performed re-evaluation today. ROM improving. Pain decreasing. Reduce patient frequency to 1x/week and monitor for exacerbation. Goals Decrease thoracic pain and inflammation Increase ROM Barriers Previous surgery Follow Up 1 Week Coding Level of Care Code Off vis,est,level 1 Diagnoses Thoracic neuritis M54.14 Segmental and somatic dysfunction of thoracic region M99.02 Additional Codes Procedures - Traction, Mechanical: Yes (69173) Procedures - Manipulation: 1-2 regions (04141) 10/03/17 0843 <Electronically signed by Carol Cisneros D.C.> Date Carol Cisneros D.C. Cosigner Signature: Date (if applicable) CC: CHIROPRACTIC REPORT Observed: 09/26/2017 Status: F Source: [place] 9:21 AM [facility] [address] [place] [address] OFFICE VISIT Date of Service: 09/26/17 MR#: [id number] Acct: [id number] Name: KATHY OCASIO Rep #: [id number] : 1950 Provider: aCrol Cisneros D.C. Age/Sex: 67/F Location: [facility] Status: Signed Intake Vital Signs09/26/17 Height 5 ft 1 in 09/26/17 Weight: 139 lb 09/26/17 Body Mass Index (BMI) 26.2 Intake Visit Reasons: back pain Chief Complaint: chest pain Is patient in pain?: Yes Allergies doxycycline Allergy (Verified 08/17/17 18:19) Itching cephalexin Adverse Reaction (Verified 08/17/17 18:19) Other citalopram Adverse Reaction (Verified 08/17/17 18:19) Other metoclopramide [From Reglan] Adverse Reaction (Verified 08/17/17 18:19) Other morphine Adverse Reaction (Verified 08/17/17 18:19) Low blood pressure pregabalin Adverse Reaction (Verified 08/17/17 18:19) Other Medications ALPRAZolam [Xanax] 0.5 mg PO QHS PRN 02/13/15 [History Confirmed 08/17/17] Felodipine [Plendil] 10 mg PO DAILY 02/13/15 [History Confirmed 08/17/17] Levothyroxine [Synthroid] 50 mcg PO DAILY 02/13/15 [History Confirmed 08/17/17] Acetaminophen [Tylenol] 500 mg PO QHS PRN PRN 08/17/17 [History Confirmed 08/17/17] Atorvastatin Calcium [Lipitor] 10 mg PO QHS 08/17/17 [History Confirmed 08/17/17] Melatonin 5 - 10 mg PO PRN PRN 08/17/17 [History Confirmed 08/17/17] PFSH Medical History IBS (irritable bowel syndrome) (Acute) Social History Smoking Status: Former smoker alcohol intake: never substance use type: does not use what type of physical activity do you participate in: none HPI back pain : Chief Complaint: back pain Visit Number: 8 Details: KATHY OCASIO is a 67 year old F who presents with mid and low back pain. She states that since her last treatment her low back pain has been decreased, although her mid back and thoracic pain has slightly increased. Over the weekend the patient did mow her yard and run the sweeper causing increased tightness in the L rib cage area. When twisting, bending, or leaning forward she experiences a sharp shooting pain the bands across the ribs, today she rates her pain a 5/10 although she denies any numbness, or tingling. Onset: 09/22/17 Location: mid and low back Duration: constant Aggravating or associated factors: bending, leaning and rotation Relieving factors: chiro Pain Quality: aching, dull, sharp, radiating Exam Musc General: Yes joint tenderness (T5, T6, T7, T11, L1, L2), decreased ROM and normal gait; no normal posture (high right shoulder) Thoracic/Lumbar Spine: pain with thoraco-lumbar ROM (slightly improved) with rotation to the right, with rotation to the left, with forward flexion and other (extension), thoraco-lumbar ROM limited (slightly improved) with rotation to the left, with rotation to the right and with forward flexion, scoliosis, thor and lumb spine abnorm to inspection, thoraco-lumbar spasm (slightly improved) on the left in the mid thoracic, in the lower thoracic and in the upper lumbar Office Procedures Chiropractic Treatments Procedures Manipulation: 1-2 regions (T5, T6, T7) Assessment AND Plan Problems 1. Thoracic neuritis M54.14 2. Segmental and somatic dysfunction of thoracic region M99.02 Plan Patient is showing slow improvement and symptom stabilization. Orders Orders: Plan Detail Goals Decrease thoracic pain and inflammation Increase ROM Barriers Previous surgery Follow Up 2 Days Coding Level of Care Code No Charge Diagnoses Thoracic neuritis M54.14 Segmental and somatic dysfunction of thoracic region M99.02 Additional Codes Procedures - Manipulation: 1-2 regions (46075) 09/26/17 0921 <Electronically signed by Carol Cisneros D.C.> Date Carol Cisneros D.C. Cosigner Signature: Date (if applicable) CC: CHIROPRACTIC REPORT Observed: 09/13/2017 Status: F Source: [place] 2:02 PM [facility] [address] [place] [address] OFFICE VISIT Date of Service: 09/12/17 MR#: [id number] Acct: [id number] Name: KATHY OCASIO Rep #: [id number] : 1950 Provider: Carol Cisneros D.C. Age/Sex: 67/F Location: [facility] Status: Signed Intake Vital Signs09/12/17 Height 5 ft 1 in 09/12/17 Weight: 139 lb 09/12/17 Body Mass Index (BMI) 26.2 Intake Visit Reasons: back pain Chief Complaint: chest pain Is patient in pain?: Yes Allergies doxycycline Allergy (Verified 08/17/17 18:19) Itching cephalexin Adverse Reaction (Verified 08/17/17 18:19) Other citalopram Adverse Reaction (Verified 08/17/17 18:19) Other metoclopramide [From Reglan] Adverse Reaction (Verified 08/17/17 18:19) Other morphine Adverse Reaction (Verified 08/17/17 18:19) Low blood pressure pregabalin Adverse Reaction (Verified 08/17/17 18:19) Other Medications ALPRAZolam [Xanax] 0.5 mg PO QHS PRN 02/13/15 [History Confirmed 08/17/17] Felodipine [Plendil] 10 mg PO DAILY 02/13/15 [History Confirmed 08/17/17] Levothyroxine [Synthroid] 50 mcg PO DAILY 02/13/15 [History Confirmed 08/17/17] Acetaminophen [Tylenol] 500 mg PO QHS PRN PRN 08/17/17 [History Confirmed 08/17/17] Atorvastatin Calcium [Lipitor] 10 mg PO QHS 08/17/17 [History Confirmed 08/17/17] Melatonin 5 - 10 mg PO PRN PRN 08/17/17 [History Confirmed 08/17/17] [facility] Medical History IBS (irritable bowel syndrome) (Acute) Social History Smoking Status: Former smoker alcohol intake: never substance use type: does not use what type of physical activity do you participate in: none HPI back pain : Chief Complaint: back pain Visit Number: 7 Details: KATHY OCASIO is a 67 year old F who presents with decreased mid and low back pain. Today the patient rates her pain a 3/10 and describes it as a sore ache in the mid back, the pain is no longer radiating into the rib cage. Bending, lifting, and standing cause a sharp pain at times, although her thoracic muscles no longer feel tight and stiff. The patient denies any numbness, tingling, burning or radiculopathy. Location: mid and low back Duration: intermittent Aggravating or associated factors: bending, lifting, standing and twisting Relieving factors: heat, adjustment Pain Quality: aching, dull, sharp Exam Musc General: Yes joint tenderness (T5, T6, T7, T11, L1, L2), decreased ROM and normal gait; no normal posture (high right shoulder) Thoracic/Lumbar Spine: pain with thoraco-lumbar ROM (slightly improved) with rotation to the right, with rotation to the left, with forward flexion and other (extension), thoraco-lumbar ROM limited (slightly improved) with rotation to the left, with rotation to the right and with forward flexion, scoliosis, thor and lumb spine abnorm to inspection, thoraco-lumbar spasm (slightly improved) on the left in the mid thoracic, in the lower thoracic and in the upper lumbar Office Procedures Chiropractic Treatments Procedures Manipulation: 1-2 regions (T6, T7) Traction, Mechanical: Yes Details: Traction lumbar 15 min Assessment AND Plan 1. Thoracic neuritis M54.14 Orders Orders: 2. Segmental and somatic dysfunction of lumbar region M99.03 Orders Orders: 3. Segmental and somatic dysfunction of thoracic region M99.02 Orders Orders: Plan Detail Goals Decrease thoracic pain and inflammation Increase ROM Barriers Previous surgery Follow Up 2 x week Coding Level of Care Code No Charge Diagnoses Thoracic neuritis M54.14 Segmental and somatic dysfunction of lumbar region M99.03 Segmental and somatic dysfunction of thoracic region M99.02 Additional Codes Procedures - Traction, Mechanical: Yes (10832) Procedures - Manipulation: 1-2 regions (22363) 09/13/17 1402 <Electronically signed by Carol Cisneros D.C.> Date Carol Cisneros D.C. Cosigner Signature: Date (if applicable) CC: CHIROPRACTIC REPORT Observed: 09/12/2017 Status: F Source: [place] 10:43 AM [facility] [place] [address] OFFICE VISIT Date of Service: 09/08/17 MR#: [id number] Acct: [id number] Name: KATHY OCASIO Rep #: [id number] : 1950 Provider: Carol Cisneros D.C. Age/Sex: 67/F Location: [facility] Status: Signed Intake Vital Signs09/08/17 Height 5 ft 1 in 09/08/17 Weight: 139 lb 09/08/17 Body Mass Index (BMI) 26.2 Intake Visit Reasons: back pain Is patient in pain?: Yes Allergies doxycycline Allergy (Verified 08/17/17 18:19) Itching cephalexin Adverse Reaction (Verified 08/17/17 18:19) Other citalopram Adverse Reaction (Verified 08/17/17 18:19) Other metoclopramide [From Reglan] Adverse Reaction (Verified 08/17/17 18:19) Other morphine Adverse Reaction (Verified 08/17/17 18:19) Low blood pressure pregabalin Adverse Reaction (Verified 08/17/17 18:19) Other Medications ALPRAZolam [Xanax] 0.5 mg PO QHS PRN 02/13/15 [History Confirmed 08/17/17] Felodipine [Plendil] 10 mg PO DAILY 02/13/15 [History Confirmed 08/17/17] Levothyroxine [Synthroid] 50 mcg PO DAILY 02/13/15 [History Confirmed 08/17/17] Acetaminophen [Tylenol] 500 mg PO QHS PRN PRN 08/17/17 [History Confirmed 08/17/17] Atorvastatin Calcium [Lipitor] 10 mg PO QHS 08/17/17 [History Confirmed 08/17/17] Melatonin 5 - 10 mg PO PRN PRN 08/17/17 [History Confirmed 08/17/17] [facility] Medical History IBS (irritable bowel syndrome) (Acute) Social History Smoking Status: Former smoker alcohol intake: never substance use type: does not use what type of physical activity do you participate in: none HPI back pain : Chief Complaint: back pain Visit Number: 6 Details: KATHY OCASIO is a 67 year old F who presents with increased low back pain. She states that over the past few days she has noticed an increase of sharp achiness banding across the low back and into the mid back at times. Today she rates her pain a 5/10, bending, lifting and prolonged standing increase the patients pain, although she denies any numbness or tingling. Location: mid-low back Duration: constant Aggravating or associated factors: bending, lifting, and prolonged standing Relieving factors: adjustment and stretching Pain Quality: aching, dull, sharp Exam Musc General: Yes joint tenderness (T5, T6, T7, T11, L1, L2), decreased ROM and normal gait; no normal posture (high right shoulder) Thoracic/Lumbar Spine: pain with thoraco-lumbar ROM (slightly improved) with rotation to the right, with rotation to the left, with forward flexion and other (extension), thoraco-lumbar ROM limited (slightly improved) with rotation to the left, with rotation to the right and with forward flexion, scoliosis, thor and lumb spine abnorm to inspection, thoraco-lumbar spasm (slightly improved) on the left in the mid thoracic, in the lower thoracic and in the upper lumbar Office Procedures Chiropractic Treatments Procedures Manipulation: 1-2 regions (T5,T6,T7, T11) Traction, Mechanical: Yes Details: Lumbar traction 15 min Assessment AND Plan 1. Thoracic neuritis M54.14 Orders Orders: 2. Segmental and somatic dysfunction of thoracic region M99.02 Orders Orders: 3. Segmental and somatic dysfunction of lumbar region M99.03 Orders Orders: Plan Detail Goals Decrease thoracic pain and inflammation Increase ROM Barriers Previous surgery Follow Up 1 Week Coding Level of Care Code No Charge Diagnoses Thoracic neuritis M54.14 Segmental and somatic dysfunction of thoracic region M99.02 Segmental and somatic dysfunction of lumbar region M99.03 Additional Codes Procedures - Traction, Mechanical: Yes (28966) Procedures - Manipulation: 1-2 regions (60289) 09/12/17 1043 <Electronically signed by Carol Cisneros D.C.> Date Carol Cisneros D.C. Cosigner Signature: Date (if applicable) CC: CHIROPRACTIC REPORT Observed: 09/07/2017 Status: F Source: [place] 10:40 AM [facility] [address] [place] [address] OFFICE VISIT Date of Service: 09/07/17 MR#: [id number] Acct: [id number] Name: KATHY OCASIO Rep #: [id number] : 1950 Provider: Carlo Cisneros D.C. Age/Sex: 67/F Location: [facility] Status: Signed Intake Vital Signs09/07/17 Height 5 ft 1 in 09/07/17 Weight: 139 lb 09/07/17 Body Mass Index (BMI) 26.2 Intake Visit Reasons: back pain Chief Complaint: chest pain Is patient in pain?: Yes Allergies doxycycline Allergy (Verified 08/17/17 18:19) Itching cephalexin Adverse Reaction (Verified 08/17/17 18:19) Other citalopram Adverse Reaction (Verified 08/17/17 18:19) Other metoclopramide [From Reglan] Adverse Reaction (Verified 08/17/17 18:19) Other morphine Adverse Reaction (Verified 08/17/17 18:19) Low blood pressure pregabalin Adverse Reaction (Verified 08/17/17 18:19) Other Medications ALPRAZolam [Xanax] 0.5 mg PO QHS PRN 02/13/15 [History Confirmed 08/17/17] Felodipine [Plendil] 10 mg PO DAILY 02/13/15 [History Confirmed 08/17/17] Levothyroxine [Synthroid] 50 mcg PO DAILY 02/13/15 [History Confirmed 08/17/17] Acetaminophen [Tylenol] 500 mg PO QHS PRN PRN 08/17/17 [History Confirmed 08/17/17] Atorvastatin Calcium [Lipitor] 10 mg PO QHS 08/17/17 [History Confirmed 08/17/17] Melatonin 5 - 10 mg PO PRN PRN 08/17/17 [History Confirmed 08/17/17] PFSH Medical History IBS (irritable bowel syndrome) (Acute) Social History Smoking Status: Former smoker alcohol intake: never substance use type: does not use what type of physical activity do you participate in: none HPI back pain : Chief Complaint: back pain Visit Number: 5 Details: KATHY OCASIO is a 67 year old F who presents with decreased back pain. She states that upon rising in the morning she is still experience tightness in the L chest cavity area. Kathy is able to stand for a longer period of time before her pain begins, today she rates her pain a 3/10. The pain is described as a dull ache that increases with prolonged walking and frequent bending, she denies any numbness or tingling. Location: mid and low back Duration: intermittent Aggravating or associated factors: prolonged walking and bending Relieving factors: heat and adjustment Pain Quality: aching, dull, sharp Exam Musc General: Yes joint tenderness (T5, T6, T7, T11, L1, L2), decreased ROM and normal gait; no normal posture (high right shoulder) Thoracic/Lumbar Spine: pain with thoraco-lumbar ROM (slightly improved) with rotation to the right, with rotation to the left, with forward flexion and other (extension), thoraco-lumbar ROM limited (slightly improved) with rotation to the left, with rotation to the right and with forward flexion, scoliosis, thor and lumb spine abnorm to inspection, thoraco-lumbar spasm (slightly improved) on the left in the mid thoracic, in the lower thoracic and in the upper lumbar Office Procedures Chiropractic Treatments Procedures Manipulation: 1-2 regions (T5, T8) Assessment AND Plan 1. Thoracic neuritis M54.14 Orders Orders: 2. Segmental and somatic dysfunction of lumbar region M99.03 Orders Orders: 3. Segmental and somatic dysfunction of thoracic region M99.02 Orders Orders: Plan Detail Goals Decrease thoracic pain and inflammation Increase ROM Barriers Previous surgery Follow Up 2x/wk Coding Level of Care Code No Charge Diagnoses Thoracic neuritis M54.14 Segmental and somatic dysfunction of lumbar region M99.03 Segmental and somatic dysfunction of thoracic region M99.02 Additional Codes Procedures - Manipulation: 1-2 regions (36819) 09/07/17 1040 <Electronically signed by Carol Cisneros D.C.> Date Carol Cisneros D.C. Cosign Signature: Date (if applicable) CC: CHIROPRACTIC REPORT Observed: 09/01/2017 Status: F Source: [place] 9:26 AM [facility] [address] [place] [address] OFFICE VISIT Date of Service: 09/01/17 MR#: [id number] Acct: [id number] Name: KATHY OCASIO Rep #: [id number] : 1950 Provider: Carol Cisneros D.C. Age/Sex: 67/F Location: [facility] Status: Signed Intake Vital Signs09/01/17 Height 5 ft 1 in 09/01/17 Weight: 139 lb 09/01/17 Body Mass Index (BMI) 26.2 Intake Visit Reasons: back pain Chief Complaint: chest pain Is patient in pain?: Yes Allergies doxycycline Allergy (Verified 08/17/17 18:19) Itching cephalexin Adverse Reaction (Verified 08/17/17 18:19) Other citalopram Adverse Reaction (Verified 08/17/17 18:19) Other metoclopramide [From Reglan] Adverse Reaction (Verified 08/17/17 18:19) Other morphine Adverse Reaction (Verified 08/17/17 18:19) Low blood pressure pregabalin Adverse Reaction (Verified 08/17/17 18:19) Other Medications ALPRAZolam [Xanax] 0.5 mg PO QHS PRN 02/13/15 [History Confirmed 08/17/17] Felodipine [Plendil] 10 mg PO DAILY 02/13/15 [History Confirmed 08/17/17] Levothyroxine [Synthroid] 50 mcg PO DAILY 02/13/15 [History Confirmed 08/17/17] Acetaminophen [Tylenol] 500 mg PO QHS PRN PRN 08/17/17 [History Confirmed 08/17/17] Atorvastatin Calcium [Lipitor] 10 mg PO QHS 08/17/17 [History Confirmed 08/17/17] Melatonin 5 - 10 mg PO PRN PRN 08/17/17 [History Confirmed 08/17/17] [facility] Medical History IBS (irritable bowel syndrome) (Acute) Social History Smoking Status: Former smoker alcohol intake: never substance use type: does not use what type of physical activity do you participate in: none HPI back pain : Chief Complaint: back pain Visit Number: 4 Details: KATHY OCASIO is a 67 year old F who presents with increased mid back pain. She states that yesterday upon rising she began experiencing sharp pain in the upper L mid back, banding into the chest area. Today Kathy rates her pain a 5/10 and describes it as a tight sharp ache, she explains that the muscles in her upper rib cage are tight and stiff again, but denies any numbness, tingling or radiculopathy. Onset: 08/31/17 Location: mid back Duration: frequent Aggravating or associated factors: twisting, leaning forward and lifting Relieving factors: heat and adjustment Pain Quality: aching, dull, sharp, cramping Exam Musc General: Yes joint tenderness (T5, T6, T7, T11, L1, L2), decreased ROM and normal gait; no normal posture (high right shoulder) Thoracic/Lumbar Spine: pain with thoraco-lumbar ROM (slightly improved) with rotation to the right, with rotation to the left, with forward flexion and other (extension), thoraco-lumbar ROM limited (slightly improved) with rotation to the left, with rotation to the right and with forward flexion, scoliosis, thor and lumb spine abnorm to inspection, thoraco-lumbar spasm (slightly improved) on the left in the mid thoracic, in the lower thoracic and in the upper lumbar Office Procedures Chiropractic Treatments Procedures Manipulation: 1-2 regions (T5, T11, L1) Assessment AND Plan 1. Thoracic neuritis M54.14 Orders Orders: 2. Segmental and somatic dysfunction of lumbar region M99.03 Orders Orders: 3. Segmental and somatic dysfunction of thoracic region M99.02 Orders Orders: Plan Detail Goals Decrease thoracic pain and inflammation Increase ROM Barriers Previous surgery Follow Up 3 x week Coding Level of Care Code No Charge Diagnoses Thoracic neuritis M54.14 Segmental and somatic dysfunction of lumbar region M99.03 Segmental and somatic dysfunction of thoracic region M99.02 Additional Codes Procedures - Manipulation: 1-2 regions (16618) 09/01/17 0926 <Electronically signed by Carol Cisneros D.C.> Date Carol Cisneros D.C. Cosigner Signature: Date (if applicable) CC: CHIROPRACTIC REPORT Observed: 08/30/2017 Status: F Source: [place] 2:17 PM [facility] [address] [place] [address] OFFICE VISIT Date of Service: 08/30/17 MR#: [id number] Acct: [id number] Name: KATHY OCASIO Rep #: [id number] : 1950 Provider: Carol Cisneros D.C. Age/Sex: 67/F Location: [facility] Status: Signed Intake Vital Signs08/30/17 Height 5 ft 1 in 08/30/17 Weight: 139 lb 08/30/17 Body Mass Index (BMI) 26.2 Intake Visit Reasons: back pain Chief Complaint: chest pain Is patient in pain?: Yes Allergies doxycycline Allergy (Verified 08/17/17 18:19) Itching cephalexin Adverse Reaction (Verified 08/17/17 18:19) Other citalopram Adverse Reaction (Verified 08/17/17 18:19) Other metoclopramide [From Reglan] Adverse Reaction (Verified 08/17/17 18:19) Other morphine Adverse Reaction (Verified 08/17/17 18:19) Low blood pressure pregabalin Adverse Reaction (Verified 08/17/17 18:19) Other Medications ALPRAZolam [Xanax] 0.5 mg PO QHS PRN 02/13/15 [History Confirmed 08/17/17] Felodipine [Plendil] 10 mg PO DAILY 02/13/15 [History Confirmed 08/17/17] Levothyroxine [Synthroid] 50 mcg PO DAILY 02/13/15 [History Confirmed 08/17/17] Acetaminophen [Tylenol] 500 mg PO QHS PRN PRN 08/17/17 [History Confirmed 08/17/17] Atorvastatin Calcium [Lipitor] 10 mg PO QHS 08/17/17 [History Confirmed 08/17/17] Melatonin 5 - 10 mg PO PRN PRN 08/17/17 [History Confirmed 08/17/17] [facility] Medical History IBS (irritable bowel syndrome) (Acute) Social History Smoking Status: Former smoker alcohol intake: never substance use type: does not use what type of physical activity do you participate in: none HPI back pain : Chief Complaint: back pain Visit Number: 3 Details: KATHY OCASIO is a 67 year old F who presents with decreased thoracic pain. She states that it is easier to breath and that the muscle and knot located under the L rib is no longer tight. Today she rates her pain a 3/10 and describes it as a sore ache across the thoracic and lumbar area. Twisting, bending and leaning still causes increased pain although Kathy denies any numbness or tingling. Location: thoracic and lumbar Duration: constant Aggravating or associated factors: twisting, bending and leaning Relieving factors: adjustment and sitting Pain Quality: aching, dull, cramping Exam Musc General: Yes joint tenderness (T5, T6, T7, T11, L1, L2), decreased ROM and normal gait; no normal posture (high right shoulder) Thoracic/Lumbar Spine: pain with thoraco-lumbar ROM (slightly improved) with rotation to the right, with rotation to the left, with forward flexion and other (extension), thoraco-lumbar ROM limited (slightly improved) with rotation to the left, with rotation to the right and with forward flexion, scoliosis, thor and lumb spine abnorm to inspection, thoraco-lumbar spasm (slightly improved) on the left in the mid thoracic, in the lower thoracic and in the upper lumbar Office Procedures Chiropractic Treatments Procedures Manipulation: 1-2 regions (T5, T7, T11, L2) Assessment AND Plan 1. Thoracic neuritis M54.14 Orders Orders: 2. Segmental and somatic dysfunction of lumbar region M99.03 Orders Orders: 3. Segmental and somatic dysfunction of thoracic region M99.02 Orders Orders: Plan Detail Additional Comments Patient is showing positive improvement with her therapy. Goals Decrease thoracic pain and inflammation Increase ROM Barriers Previous surgery Follow Up 3 x week Coding Level of Care Code No Charge Diagnoses Thoracic neuritis M54.14 Segmental and somatic dysfunction of lumbar region M99.03 Segmental and somatic dysfunction of thoracic region M99.02 Additional Codes Procedures - Manipulation: 1-2 regions (68825) 08/30/17 1417 <Electronically signed by Carol Cisneros D.C.> Date Carol Cisneros D.C. Cosigner Signature: Date (if applicable) CC: CHIROPRACTIC REPORT Observed: 08/30/2017 Status: F Source: [place] 8:42 AM [facility] [address] [place] [address] OFFICE VISIT Date of Service: 08/29/17 MR#: [id number] Acct: [id number] Name: KATHY OCASIO Sajan Rep #: [id number] : 1950 Provider: Carol Cisneros D.C. Age/Sex: 67/F Location: [facility] Status: Signed Intake Vital Signs08/29/17 Height 5 ft 1 in 08/29/17 Weight: 139 lb 08/29/17 Body Mass Index (BMI) 26.2 Intake Visit Reasons: back pain Is patient in pain?: Yes Allergies doxycycline Allergy (Verified 08/17/17 18:19) Itching cephalexin Adverse Reaction (Verified 08/17/17 18:19) Other citalopram Adverse Reaction (Verified 08/17/17 18:19) Other metoclopramide [From Reglan] Adverse Reaction (Verified 08/17/17 18:19) Other morphine Adverse Reaction (Verified 08/17/17 18:19) Low blood pressure pregabalin Adverse Reaction (Verified 08/17/17 18:19) Other Medications ALPRAZolam [Xanax] 0.5 mg PO QHS PRN 02/13/15 [History Confirmed 08/17/17] Felodipine [Plendil] 10 mg PO DAILY 02/13/15 [History Confirmed 08/17/17] Levothyroxine [Synthroid] 50 mcg PO DAILY 02/13/15 [History Confirmed 08/17/17] Acetaminophen [Tylenol] 500 mg PO QHS PRN PRN 08/17/17 [History Confirmed 08/17/17] Atorvastatin Calcium [Lipitor] 10 mg PO QHS 08/17/17 [History Confirmed 08/17/17] Melatonin 5 - 10 mg PO PRN PRN 08/17/17 [History Confirmed 08/17/17] [facility] Medical History IBS (irritable bowel syndrome) (Acute) Social History Smoking Status: Former smoker alcohol intake: never substance use type: does not use what type of physical activity do you participate in: none HPI back pain : Chief Complaint: back pain Visit Number: 2 Details: KATHY OCASIO is a 67 year old F who presents with decreased low back and thoracic pain. She states that after her last adjustment her pain slightly subsided for roughly two days, although today she rates her pain a 5/10. Kathy describes her pain a sharp ache that bands across the low back, along with her L sided thoracic pain although she states it is not getting tight and sharp. At times the patient still complains of slight numbness and tingling in the L rib cage area, bending, twisting and taking a deep breath in still cause increased pain. Location: thoracic and low back Duration: frequent Aggravating or associated factors: bending, twisting, taking a deep breath Relieving factors: chiro Pain Quality: aching, dull, sharp, radiating Exam Musc General: Yes joint tenderness (T5, T6, T7, T11, L1, L2), decreased ROM and normal gait; no normal posture (high right shoulder) Thoracic/Lumbar Spine: pain with thoraco-lumbar ROM with rotation to the right, with rotation to the left, with forward flexion and other (extension), thoraco- lumbar ROM limited with rotation to the left, with rotation to the right and with forward flexion, scoliosis, thor and lumb spine abnorm to inspection, thoraco-lumbar spasm on the left in the mid thoracic, in the lower thoracic and in the upper lumbar Office Procedures Chiropractic Treatments Procedures Manipulation: 1-2 regions (T5, T6, T11, L2) Assessment AND Plan 1. Thoracic neuritis M54.14 Orders Orders: 2. Segmental and somatic dysfunction of lumbar region M99.03 Orders Orders: 3. Segmental and somatic dysfunction of thoracic region M99.02 Orders Orders: Plan Detail Goals Decrease thoracic pain and inflammation Increase ROM Barriers Previous surgery Follow Up 3 x week Coding Level of Care Code No Charge Diagnoses Thoracic neuritis M54.14 Segmental and somatic dysfunction of lumbar region M99.03 Segmental and somatic dysfunction of thoracic region M99.02 Additional Codes Procedures - Manipulation: 1-2 regions (80807) 08/30/17 0842 <Electronically signed by Carol Cisneros D.C.> Date Carol Cisneros D.C. Cosigner Signature: Date (if applicable) CC: 12 LEAD ELECTROCARDIOGRAM Observed: 08/26/2017 Status: F Source: [place] 12:50 PM [facility] Cardiovascular Services [address] [place] [id number] 12 Lead EKG 08/18/17 0534 MR#: [id number] Acct: [id number] Name: KATHY OCASIO Rep #: [id number] : 1950 67 From: Ethan Dickerson MD Attending Dr: Selena Persaud MD Status: DIS JUAN Ordering Dr: Kyra Callejas MD Date: 08/18/17 Location: [facility] Sex: F C Admitted: 08/17/17 Test Reason : AM EKG Blood Pressure : / mmHG Vent. Rate : 064 BPM Atrial Rate : 064 BPM P-R Int : 150 ms QRS Dur : 076 ms QT Int : 446 ms P-R-T Axes : 071 -25 063 degrees QTc Int : 460 ms Normal sinus rhythm Nonspecific ST abnormality Abnormal ECG When compared with ECG of 17-AUG-2017 18:24, MANUAL COMPARISON REQUIRED, DATA IS UNCONFIRMED Confirmed by ETHAN DICKERSON MD ([id number]), general expeditor NICANOR SANCHEZ ([id number]) on 08/26/2017 12:50:08 PM Referred By: KAMAR Confirmed By:ETHAN DICKERSON MD 08/26/17 1250 Date Ethan Dickerson MD CC: Selena Persaud MD; Kyra Callejas MD; Tim Alexis MD Signed CHIROPRACTIC REPORT Observed: 08/25/2017 Status: F Source: [place] 3:39 PM [facility] [address] [place] [address] OFFICE VISIT Date of Service: 08/23/17 MR#: [id number] Acct: [id number] Name: KATHY OCASIO Sajan Rep #: [id number] : 1950 Provider: Carol Cisneros D.C. Age/Sex: 67/F Location: [facility] Status: Signed Intake Vital Signs08/23/17 Height 5 ft 1 in 08/23/17 Weight: 139 lb 08/23/17 Body Mass Index (BMI) 26.2 Intake Visit Reasons: back pain Is patient in pain?: Yes Allergies doxycycline Allergy (Verified 08/17/17 18:19) Itching cephalexin Adverse Reaction (Verified 08/17/17 18:19) Other citalopram Adverse Reaction (Verified 08/17/17 18:19) Other metoclopramide [From Reglan] Adverse Reaction (Verified 08/17/17 18:19) Other morphine Adverse Reaction (Verified 08/17/17 18:19) Low blood pressure pregabalin Adverse Reaction (Verified 08/17/17 18:19) Other Medications ALPRAZolam [Xanax] 0.5 mg PO QHS PRN 02/13/15 [History Confirmed 08/17/17] Felodipine [Plendil] 10 mg PO DAILY 02/13/15 [History Confirmed 08/17/17] Levothyroxine [Synthroid] 50 mcg PO DAILY 02/13/15 [History Confirmed 08/17/17] Acetaminophen [Tylenol] 500 mg PO QHS PRN PRN 08/17/17 [History Confirmed 08/17/17] Atorvastatin Calcium [Lipitor] 10 mg PO QHS 08/17/17 [History Confirmed 08/17/17] Melatonin 5 - 10 mg PO PRN PRN 08/17/17 [History Confirmed 08/17/17] PFSH Medical History IBS (irritable bowel syndrome) (Acute) Social History Smoking Status: Former smoker alcohol intake: never substance use type: does not use what type of physical activity do you participate in: none HPI back pain : Chief Complaint: BACK PAIN Visit Number: 1 Referral source: Details: KATHY OCASIO is a 67 year old F who presents with L sided mid back pain. She states that roughly two years ago she had a procedure to remove the bottom part of the lung, since she has had pain in the L rib cage and mid back area. The pain is described as a deep sharp ache that wraps around the entire L thoracic area. Sweeping, going down stairs, and getting out of the car all cause increased pain. At times the patient is unable to wear a bra due to the tenderness around the rib area, at times the L upper quadrant can become tight and with increased pressure when breathing. Onset: 05/16/15 Location: L mid back Duration: constant Aggravating or associated factors: sweeping, stairs, and geting out of the car Relieving factors: N/A Pain Quality: aching, dull, sharp, radiating Exam Musc General: Yes joint tenderness (T5, T6, T7, T11, L1, L2), decreased ROM and normal gait; no normal posture (high right shoulder) Thoracic/Lumbar Spine: pain with thoraco-lumbar ROM with rotation to the right, with rotation to the left, with forward flexion and other (extension), thoraco- lumbar ROM limited with rotation to the left, with rotation to the right and with forward flexion, scoliosis, thor and lumb spine abnorm to inspection, thoraco-lumbar spasm on the left in the mid thoracic, in the lower thoracic and in the upper lumbar Neuro General: alert, awake, oriented x3, gait normal, normal light touch, pain and propioception Ortho Test CERVICAL THORACIC Kemps: Positive, Le Schepelmanns pain: Left Ponce: Positive (R scapular winging) LUMBAR Kemps: Positive, Le Valsalvas: Negative SLR: Negative Iliac Compression: Negative Office Procedures Chiropractic Treatments Procedures Manipulation: 1-2 regions (T6, T11, L1) Assessment AND Plan Problems 1. Segmental and somatic dysfunction of thoracic region M99.02 2. Segmental and somatic dysfunction of lumbar region M99.03 3. Thoracic neuritis M54.14 Plan Begin acute care treatment plan. Orders Orders: Plan Detail Goals Decrease thoracic pain and inflammation Increase ROM Barriers Previous surgery Follow Up 2x/wk Coding Level of Care Code Off vis,new,level 3 Diagnoses Segmental and somatic dysfunction of thoracic region M99.02 Segmental and somatic dysfunction of lumbar region M99.03 Thoracic neuritis M54.14 Additional Codes Procedures - Manipulation: 1-2 regions (51195) 08/25/17 1539 <Electronically signed by Carol Cisneros D.C.> Date Carol Cisneros D.C. Cosigner Signature: Date (if applicable) CC: 12 LEAD ELECTROCARDIOGRAM Observed: 08/23/2017 Status: F Source: [place] 9:00 AM [facility] Cardiovascular Services [address] [place] [address] 12 Lead EKG 08/17/17 1824 MR#: [id number] Acct: [id number] Name: KATHY OCASIO Sajan Rep #: [id number] : 1950 67 From: Ethan Dickerson MD Attending Dr: Selena Persaud MD Status: DIS JUAN Ordering Dr: Josué Ramon DO Date: 08/17/17 Location: [facility] Sex: F C Admitted: 08/17/17 Test Reason : CP Blood Pressure : / mmHG Vent. Rate : 090 BPM Atrial Rate : 090 BPM P-R Int : 138 ms QRS Dur : 082 ms QT Int : 392 ms P-R-T Axes : 065 -27 083 degrees QTc Int : 479 ms Normal sinus rhythm Nonspecific ST and T wave abnormality Abnormal ECG Confirmed by ETHAN DICKERSON MD ([id number]), general expeditor NICANOR SANCHEZ ([id number]) on 08/23/2017 9:00:01 AM Referred By: DR RAMON Confirmed By:ETHAN DICKERSON MD 08/23/17 0900 Date Ethan Dickerson MD CC: Selena Persaud MD; Josué Ramon DO; Tim Alexis MD Signed DISCHARGE SUMMARY Observed: 08/18/2017 Status: F Source: [place] 2:37 PM [facility] Medical Records Department [address] [place] [address] Discharge Summary 08/18/17 1336 MR#: [id number] Acct: [id number] Name: KATHY OCASIO Rep #: [id number] : 1950 67 From: Shekhar JIMENEZ PCP: Tim Alexis MD, Chi Status: DIS JUAN Y Location: [place] [id number] ADDENDUM by Selena Persaud MD on 08/18/17 at 1437 Code Visit OBSV E AND M: [id number] Observation care discharge 08/18/17 1437 <Electronically signed by Selena Persaud MD> Date Selena Persaud MD cc: TONY Whiteside; Selena Persaud MD; Tim Alexis MD * Signed Discharge Date and Diagnosis - Problem List Patient Problems: Active and Suspected Problems Atypical chest pain (Acute) Thoracic back pain (Acute) Date of Admission: 08/17/17 Date of Discharge: 08/18/17 - Primary Discharge Diagnosis Active and Suspected Problems Atypical chest pain (Acute) - musculoskeletal HTN Hypothyroidism HLD Left squamous cell lung CA in remission s/p left lobectomy. - Secondary Discharge Diagnosis Chronic Problems Non-small cell lung cancer (NSCLC) (Chronic) Acquired hypothyroidism (Chronic) Benign essential HTN (Chronic) Dizziness (Chronic) Hypertriglyceridemia (Chronic) Hospital Course and Treatment Imaging Results: 08/18/17 05:55 Nuclear Stress Test - Treadmil [NM] Routine - negative Conclusion: Exercise stress test with no evidence of ischemia noted at a moderate workload. Shortness of breath and chest discomfort of unknown significance. Preserved ejection fraction. RAD/Chest 1 View (Portable) IMPRESSION: No acute cardiopulmonary disease. CT/CTA Chest W/WO Contrast IMPRESSION: No demonstrated pulmonary embolism or arterial dissection. Emphysema. Atherosclerosis. Postsurgical changes within the left hemithorax. Operations: None Procedures: Stress test Summary of Care Provided: The patient is a 67 year old F with a hx of HLD, HTN, left squamous cell lung cancer in remission status post left lower lobectomy presented to the emergency room with midsternal and left sided chest discomfort and pressure. She reported this was worse with climbing stairs. She had a negative EKG, negative troponin and was admitted for chest pain rule out. She was maintained on telemetry and no abnormalities were seen. EKG in the morning was negative. Stress test in the morning was negative. Troponins were negative 3. She did develop some chest discomfort and shortness of breath on the treadmill but there is no evidence of ischemia. Her symptoms were felt to be musculoskeletal possibly secondary to prior surgery. She had stated that she had had issues with left-sided chest pain and nerve pain since her prior surgery. She was discharged in stable condition to home. Please follow up with your PCP in 2 weeks. This patient was seen by Shekhar Whiteside PA-C under the supervision of Doctor Persaud. [] Discharge Diet: Low fat/ Low Cholesterol, 2000 mg Sodium Diet Discharge Activity: Return to Normal Activity Home Medications: Medications to take at Discharge ALPRAZolam [Xanax] 0.5 mg PO QHS PRN 02/13/15 Felodipine [Plendil] 10 mg PO DAILY 02/13/15 Levothyroxine [Synthroid] 50 mcg PO DAILY 02/13/15 Acetaminophen [Tylenol] 500 mg PO QHS PRN PRN 08/17/17 Atorvastatin Calcium [Lipitor] 10 mg PO QHS 08/17/17 Melatonin 5 - 10 mg PO PRN PRN 08/17/17 Primary Care Physician: Tim Alexis Chi, MD [Primary Care Provider] - Please follow up with your Primary Care Physician in: 2 weeks Disposition: Home Minutes spent on discharge:: 35 Patient Condition:: Stable Medical Necessity - Tobacco Use Smoking Status: Former smoker Meaningful Use Info Meaningful Use Diagnoses (Choose all that apply): None applicable 08/18/17 1341 <Electronically signed by Shekhar JIMENEZ> Date Shekhar JIMENEZ 08/18/17 1413<Electronically signed by Selena Persaud MD> Cosigner Signature (if applicable): Date Selena Persaud MD CC: TONY Whiteside; Selena Persaud MD; Tim Alexis MD Signed DISCHARGE INSTRUCTION Observed: 08/18/2017 Status: F Source: [place] 1:35 PM [facility] REPOSITORY [facility] Medical Records Department [address] [place] [id number] Instructions for Home/Discharge Instructions 08/18/17 1334 MR#: [id number] Acct: [id number] Name: KATHY OCASIO Rep #: [id number] : 1950 67 From: Shekhar JIMENEZ PCP: David CAROLINA,Tim Ag Status: ADM JUAN - Discharge Diagnoses Current Active Problems: Current Active and Chronic Problems Atypical chest pain (Acute) Thoracic back pain (Acute) You will use the following diet at home:: Cardiac Your food should be the consistency of: Regular Your liquids should be the consistency of: Regular/Thin Discharge Activity: Return to Normal Activity Allergies/Adverse Reactions: Allergies doxycycline Allergy (Verified 08/17/17 18:19) Itching cephalexin Adverse Reaction (Verified 08/17/17 18:19) Other citalopram Adverse Reaction (Verified 08/17/17 18:19) Other metoclopramide [From Reglan] Adverse Reaction (Verified 08/17/17 18:19) Other morphine Adverse Reaction (Verified 08/17/17 18:19) Low blood pressure pregabalin Adverse Reaction (Verified 08/17/17 18:19) Other Medications to take at Discharge ALPRAZolam [Xanax] 0.5 mg PO QHS PRN 02/13/15 Felodipine [Plendil] 10 mg PO DAILY 02/13/15 Levothyroxine [Synthroid] 50 mcg PO DAILY 02/13/15 Acetaminophen [Tylenol] 500 mg PO QHS PRN PRN 08/17/17 Atorvastatin Calcium [Lipitor] 10 mg PO QHS 08/17/17 Melatonin 5 - 10 mg PO PRN PRN 08/17/17 Primary Care Physician: Tim Alexis Chi, MD [Primary Care Provider] - Please follow up with your Primary Care Physician in: 2 weeks Proposed Discharge Date: 08/18/17 08/18/17 1335 <Electronically signed by Shekhar JIMENEZ> Date Shekhar JIMENEZ CC: Tim Alexis MD STRESS REPORT Observed: 08/18/2017 Status: F Source: [place] 12:10 PM [facility] REPOSITORY [facility] Cardiovascular Services [address] [place] [address] MR#: [id number] Acct: [id number] Name: KATHY OCASIO Rep #: [id number] : 1950 67 From: Ethan Dickerson MD Primary Care: Tim Alxeis MD, Chi Status: ADM JUAN Ordering Dr: Sex: F C Stress Test Report Exercise myocardial perfusion stress test. 67-year-old lady with a history of chest pain. Stress protocol: Resting EKG demonstrates normal sinus rhythm with a rate of 61 bpm normal intervals and noted resting blood pressure is 152/84 mmHg. The patient exercised according to the regular Vincent protocol for a total duration of 4 minutes and 16 seconds. The maximum heart rate attained was 142 bpm which was 93% of the maximum predicted heart rate. The maximum workload attained was 6.1 metabolic equivalents. At rest there were no ST or T- wave changes noted suggest ischemia at peak exercise upsloping ST changes were noted we did not meet the criteria for ischemia. The patient did have shortness of breath and tightness in the mid chest though. The importance of the above is unclear at this time. The resting blood pressure is 152/84 with a peak blood pressure 182/84 mmHg. Myocardial perfusion protocol. 11.5 mCi of technetium 99m sestamibi was injected at rest. The patient exercised according to regular Vincent protocol for 4 minutes and 15 seconds attaining 93% maximum predicted heart rate and a workload of 6.1 metabolic equivalents. At peak exercise 32.8 mCi of technetium 99m sestamibi was injected stress images were obtained stress and rest images were reconstructed and compared in the short axis vertical long and horizontal long axis. Gated images were also obtained. Perfusion SPECT analysis. Review of the stress images demonstrate normal uptake of tracer noted in all areas of the myocardium. The resting images similarly demonstrate normal uptake of tracer noted in all areas of the myocardium. No areas of reversibility are noted suggest ischemia no previous infarct is noted. Gated SPECT analysis. The gated ejection fraction is noted to be 76%. Conclusion: Exercise stress test with no evidence of ischemia noted at a moderate workload. Shortness of breath and chest discomfort of unknown significance. Preserved ejection fraction. 08/18/17 1210 <Electronically signed by Ethan Dickerson MD> Date Ethan Dickerson MD CC: Selena Persaud MD; Tim Alexis MD Date Dictated: 08/18/171206 Date Transcribed: 08/18/171206 Seam Taper Machine: CO Signed TROPONIN-I Collected: 08/18/2017 Status: F Source: [place] 9:05 [facility] REPOSITORY Order Comment: PT IN STRESS TEST FWC. WHEN PT RETURNS TO FLOOR. 'TROP' Serial specimen #1, #2, #3, or #4: 4 TYPE CODE TESTS RESULT OUT OF RANGE REFERENCE UNITS LAB L501.4010 <0.06 ng/mL Normal < 0.02 TROPONIN-I Result Comment: TROPONIN-I EXPECTED VALUES <0.05 NEGATIVE 0.06 - 0.59 AT RISK OF MO > OR = 0.60 SUGGEST MO Performed By: #### L501.4010 #### [facility] [address] [place], [address] CBC W/DIFF, AUTOMATED Collected: 08/18/2017 Status: F Source: [place] 2:15 AM [facility] REPOSITORY TYPE CODE TESTS RESULT OUT OF RANGE REFERENCE UNITS LAB L100.1000 4.4-11.0 K/mm3 Normal WBC 6.8 LAB L100.1200 4.2-5.4 M/mm3 Low RBC 4.15 LAB L100.1300 12.0-15.0 g/dl Normal HGB 12.8 LAB L100.1400 37-47 % Normal HCT 38.2 LAB L100.1500 81-99 fL Normal MCV 92.0 LAB L100.1600 27.0-32.0 pg Normal MCH 30.8 LAB L100.1700 32-36 g/gl Normal MCHC 33.5 LAB L100.1810 11.6-14.6 % Normal RDW CV 14.0 LAB L100.1820 35.1-43.9 fl High RDW SD 47.2 LAB L100.1900 150-450 K/mm3 Normal PLT 232 LAB L100.2000 6.2-12.0 fl Normal MPV 9.3 LAB L100.2100 47-70 % Normal NEUT% 56.3 LAB L100.2200 19-41 % Normal LY% 35.0 LAB L100.2300 0-10 % Normal MONO% 7.3 LAB L100.2400 0-5 % Normal EO% 1.0 LAB L100.2500 0-1 % Normal BASO% 0.3 LAB L100.2550 0.0-0.9 % Normal IM GRAN % 0.100 Result Comment: IG% - Immature Granulocytes (promyelocytes, myelocytes and metamyelocytes) > 1% indicates that a LEFT SHIFT is Present. LAB L100.2620 2.0-7.7 X10 3/uL Normal Absolute Neut 3.8 LAB L100.2720 0.83-4.51 X10 3/ul Normal Absolute Lymph 2.39 Performed By: #### L100.0100 #### [facility] [address] [place], [address] PROTHROMBIN TIME W/INR Collected: 08/18/2017 Status: F Source: [place] 2:15 AM [facility] REPOSITORY TYPE CODE TESTS RESULT OUT OF RANGE REFERENCE UNITS LAB L300.4150 11.7-14.9 SECONDS Normal PROTIME 13.4 LAB L300.4200 Normal INR 1.0 Performed By: #### L300.3900, L300.4310 #### [facility] [address] [place], [address] PARTIAL THROMBOPLAST Collected: 08/18/2017 Status: F Source: [place] TIME 2:15 AM [facility] REPOSITORY TYPE CODE TESTS RESULT OUT OF RANGE REFERENCE UNITS LAB L300.4310 24.1-36.2 Seconds Normal PTT 35.4 Performed By: #### L300.3900, L300.4310 #### [facility] [address] [place], [address] BASIC METABOLIC Collected: 08/18/2017 Status: F Source: [place] PROFILE (BMP) 2:15 AM [facility] REPOSITORY Order Comment: 'TROP' Serial specimen #1, #2, #3, or #4: 3 TYPE CODE TESTS RESULT OUT OF RANGE REFERENCE UNITS LAB L501.0100 74-106 mg/dL Normal GLU 83 Result Comment: Please note revised GLUCOSE reference range effective 2017. LAB L501.1000 7-18 mg/dL Normal BUN 14 LAB L501.1100 0.55-1.02 mg/dL Normal CREAT,SERUM 0.65 Result Comment: The validity of the calculated GFR AND GFRAA in patients over 70 years has not been determined. Clinical correlation is essential. LAB L501.1110 >60 mL/min Normal EST GFR 96 Result Comment: Non- GFR Calc LAB L501.1115 >60 mL/min Normal EST GFR - AA 116 Result Comment: GFR Calc LAB L501.1255 ml/min Normal Estimated CRCL 40.63 LAB L501.1300 10-20 RATIO High BUN/CRE 21.5 LAB L501.2200 8.5-10 mg/dL Low .1 CA 8.4 LAB L501.5300 136-14 mmol/L Normal 5 NA 141 LAB L501.5600 3.5-5. mmol/L Normal 1 K 3.7 LAB L501.5900 98-107 mmol/L High CL 109 LAB L501.6100 21.0-3 mmol/L Normal 2.0 CO2 24.0 LAB L501.6200 5-15 Normal GAP 8 Performed By: #### L500.2500, L500.4100, L501.4010 #### [facility] [address] [place], [place], [id number] LIPID PROFILE Collected: 08/18/2017 Status: F Source: [place] 2:15 AM [facility] REPOSITORY Order Comment: 'TROP' Serial specimen #1, #2, #3, or #4: 3 TYPE CODE TESTS RESULT OUT OF RANGE REFERENCE UNITS LAB L501.4900 200 mg/dL Normal CHOL 137 Result Comment: <200 mg/dL Desirable 200-240 mg/dL Borderline >240 mg/dL High Risk LAB L501.5000 mg/dL High TRIG 273 Result Comment: The drugs N-Acetylcysteine and Metamizole may falsely depress this assay. Serum Triglycerides Reference Interval Normal <150 mg/dL Borderline high 150 - 199 mg/dL High 200 - 499 mg/dL Very High > or = 500 mg/dL LAB L501.6400 mg/dL Normal HDL 51 Result Comment: The drugs N-Acetylcysteine and Metamizole may falsely depress this assay. Reference Range HDL <40 mg/dL Low HDL Cholesterol HDL >or= 60 mg/dL High HDL Cholesterol LAB L501.6500 0-130 mg/dL Normal LDL 31 LAB L501.6600 5-40 mg/dL High VLDL 55 Performed By: #### L500.2500, L500.4100, L501.4010 #### [facility] [address] [place], [place], [id number] TROPONIN-I Collected: 08/18/2017 Status: F Source: [place] 2:15 AM [facility] REPOSITORY Order Comment: 'TROP' Serial specimen #1, #2, #3, or #4: 3 TYPE CODE TESTS RESULT OUT OF RANGE REFERENCE UNITS LAB L501.4010 <0.06 ng/mL Normal < 0.02 TROPONIN-I Result Comment: TROPONIN-I EXPECTED VALUES <0.05 NEGATIVE 0.06 - 0.59 AT RISK OF MO > OR = 0.60 SUGGEST MO Performed By: #### L500.2500, L500.4100, L501.4010 #### [facility] [address] [place], [address] TROPONIN-I Collected: 08/17/2017 Status: F Source: [place] 10:32 PM [facility] REPOSITORY Order Comment: 'TROP' Serial specimen #1, #2, #3, or #4: 2 TYPE CODE TESTS RESULT OUT OF RANGE REFERENCE UNITS LAB L501.4010 <0.06 ng/mL Normal < 0.02 TROPONIN-I Result Comment: TROPONIN-I EXPECTED VALUES <0.05 NEGATIVE 0.06 - 0.59 AT RISK OF MO > OR = 0.60 SUGGEST MO Performed By: #### L501.4010 #### [facility] [address] [facility] [place], [address] HISTORY AND PHYSICAL Observed: 08/17/2017 Status: F Source: [place] EXAM 9:10 PM [facility] REPOSITORY [facility] Medical Records Department [address] [place] [address] History and Physical 08/17/172053 MR#: [id number] Acct: [id number] Name: KATHY OCASIO Sajan Rep #: [id number] : 1950 67 From: Kyra Callejas MD PCP: David CAROLINA,Tim Ag Status: ADM JUAN Y Location: [place] [address] Problem List (1) Atypical chest pain Status: Acute (2) Thoracic back pain Status: Acute History of Present Illness Date of Admission: 08/17/17 Chief Complaint: L thoracic wrap around pain , The patient is a 67 year old F past medical history of fibromyalgia, HTN, HPL, back pain, postmenopausal, hypothyroid, status post cholecystectomy, appendectomy, hysterectomy, and 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 She reports that since that time she has had incisional pain radiating from the thoracic back laterally around to the left upper quadrant, positional, worse when she moves it, with spasm in the left upper quadrant which sometimes radiates to the chest. She called primary care physician and was scheduled for physiotherapy next week, but was advised to come in to the emergency room if the pain worsened. She reports she has tried Tylenol and Advil. She does not like narcotics. She had similar presentation in 2015 for same; CAT scan of abdomen was unrevealing, and she was treated with opioid analgesics for short time. The patient denies exertional chest disomfort, but sometimes feels it when going up stairs. Medications prior to admission include levothyroxine, felodipine, Xanax at bedtime as needed, atorvastatin ED Evaluation: Vital signs stable, 98% room air, BP 149/84, afebrile Lab to include CBC, BMP, troponin, lipase are unrevealing CT chest contrast (indication elevated d-dimer) --> postsurgical changes left hemithorax, COPD changes, right lower lobe atelectasis, no evidence of thromboembolic issue or aortic dissection, no fractures, osteopenia, degenerative changes of thoracic spine EKG reveals normal sinus rhythm with nonspecific ST-T wave changes ED Course: Aspirin 324 mg p.o., fluids Patient is referred for observation. [] Past Medical History Past Medical History (Chronic Problems): Chronic Problems Non-small cell lung cancer (NSCLC) (Chronic) Acquired hypothyroidism (Chronic) Benign essential HTN (Chronic) Dizziness (Chronic) Hypertriglyceridemia (Chronic) Allergies doxycycline Allergy (Verified 08/17/17 18:19) Itching cephalexin Adverse Reaction (Verified 08/17/17 18:19) Other citalopram Adverse Reaction (Verified 08/17/17 18:19) Other metoclopramide [From Reglan] Adverse Reaction (Verified 08/17/17 18:19) Other morphine Adverse Reaction (Verified 08/17/17 18:19) Low blood pressure pregabalin Adverse Reaction (Verified 08/17/17 18:19) Other Home Medications: Ambulatory Orders Medication Instructions Recorded ALPRAZolam [Xanax] 0.5 mg PO QHS PRN 02/13/15 Felodipine [Plendil] 10 mg PO DAILY 02/13/15 Surgical History: appendectomy, cholecystectomy, hysterectomy Smoking Status: Former smoker - *Family History Paternal History Items: No pertinent history Review of Systems Comment: else as per HPI VTE Information - Inpt Only VTE Present on Admission: No VTE Mechan Device Prophylaxis: SCD's VTE Pharm Prophylaxis ordered?: Yes Patient Problems: Active and Suspected Problems Atypical chest pain (Acute) Thoracic back pain (Acute) - Physical Exam General: Alert, Oriented x3, Cooperative, No apparent distress HEENT: Atraumatic, PERRLA, EOMI Neck: Supple, No JVD, Negative Carotid Bruits Lungs: Clear to auscultation Cardiovascular: Regular rate, Regular Rhythm, Normal S1, Normal S2 Abdomen: Bowel Sounds Present, Soft, Non Tender, Non-Distended Extremities: No edema Musculoskeletal: - - tenderness along L thoracic paraspinal area wtih possible spasm L parathoracic; when she gets spasm pain wraps around to L upper abdomen in to L chest Vital Signs Temp Pulse Resp BP Pulse Ox 98.3 F 87 17 158/74 H 97 08/17/17 18:16 08/17/17 20:22 08/17/17 20:22 08/17/17 20:22 08/17/17 20:22 Oxygen Delivery Method Room Air Weight: 142 lb Body Mass Index (BMI) 26.8 Laboratory Tests Past 24 Hrs Assessment/Plan Active and Suspected Problems Atypical chest pain (Acute) Thoracic back pain (Acute) 67 year old F past medical history of fibromyalgia, HTN, HPL, back pain, postmenopausal, hypothyroid, status post cholecystectomy, appendectomy, hysterectomy, and 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 She reports that since that time she has had incisional pain radiating from the thoracic back laterally around to the left upper quadrant, positional, worse when she moves it, with spasm in the left upper quadrant which sometimes radiates to the chest. She called primary care physician and was scheduled for physiotherapy next week, but was advised to come in to the emergency room if the pain worsened. She reports she has tried Tylenol and Advil. She does not like narcotics. She had similar presentation in 2015 for same; CAT scan of abdomen was unrevealing, and she was treated with opioid analgesics for short time. Physical exam seems most consistent with musculoskeletal type thoracic back pain, radiating along the incision towards anterior abdomen, worse with positional changes. EKG reveals non specific changes Heart score = 3 - 4 1. chest pain with typical and atypical features (favor musculoskeletal) 2. thoracic back pain/spasm 3. Hypertension 4. Hypothyroidism 5. Hyperlipidemia 6. Status post left lobectomy for squamous cell carcinoma of the lung PLAN: observe telemetry serial cardiac biomarkers Tylenol prn, Advil prn, tizanidine prn, lidoderm patch q12 hr prn PT evaluation given risk factors.heart score, lexiscan in AM 08/17/170 <Electronically signed by Kyra Callejas MD> Date Kyra Callejas MD Cosigner Signature: Date (if applicable) CC: Kyra Callejas MD; Tim Alexis MD Signed EMERGENCY DEPARTMENT Observed: 08/17/2017 Status: F Source: [place] SUMMARY 8:25 PM [facility] REPOSITORY [facility] Medical Records Department [address] [place] [address] Emergency Department Summary 08/17/172020 MR#: [id number] Acct: [id number] Name: KATHY OCASIO Rep #: [id number] : 1950 67 From: Josué Ramon DO PCP: Tim Alexis MD, Chi Status: REG ER - ER Visit Summary Date of Service: 08/17/17 Chief Complaint: [Chest pain] History of Present Illness: The patient is a 67 F [presents to the emergency department with left-sided chest pain. Patient has had discomfort to the left side of her chest for several years. Patient states that she had her left lower lobe removed due to cancer of the lung. Patient states since that time she has had discomfort underneath her left breast. Symptoms have progressively worsened to the point now where with exertion she is feeling short of breath and having exacerbation of her symptoms. Patient at times feels like there is a band around her chest. Patient denies any nausea or vomiting. Patient denies diaphoresis.] Physical Examination: [HEKAYCE-PERRLA, EOMI. Cranial nerves II through XII grossly intact. TMs clear. Mucous membranes moist. No adenopathy. Cardiovascular-regular rate and rhythm without murmur or ectopy Lungs-clear to auscultation, chest wall stable without crepitus or subcu emphysema. Patient has some tenderness palpation over the left anterior chest wall into the mid axillary region. Abdomen-normoactive bowel sounds, soft. Patient has some tenderness to palpation over the left upper abdomen. No rebound, rigidity, or perineal signs. Extremities-intact 4, normal range of motion, normal pulses, atraumatic] Test Results: [EKG obtained showed a sinus rhythm with a ventricular rate of 90 bpm with some nonspecific ST changes noted laterally. CBC with differential was normal. Chemistries unremarkable. Troponin was less than 0.02. D-dimer was 0.69. CTA of the chest showed no evidence of PE or dissection.] Emergency Department Course and Treatment: [Patient received aspirin in the emergency department] Treatment Plan: [Case was discussed with hospitalist will evaluate patient for admission] Disposition: [Admit] Impression: [Chest pain-rule out acute coronary syndrome] This note was generated with [employer] dictation software. It may contain incorrect words, spelling, and punctuation that were not noted in review of the chart prior to signing ED Disposition - Plan for ED Patient: Chief Complaint: Chest Pain Referrals: Tim Alexis Chi, MD [Primary Care Provider] - What to do if you have Problems For any increased pain, shortness of breath, bleeding, nausea or vomiting, chest pain, or any unexpected problems, contact your Primary Care Provider. Call [facility] ([phone]) or report to the closest Emergency Room. Call 911 if necessary. 08/17/172024 <Electronically signed by oJsué Ramon DO> Date Josué Ramon DO Cosigner Signature (If Indicated): Date CC: Tim Alexis MD CTA CHEST W/WO Observed: 08/17/2017 Status: F Source: [place] CONTRAST 7:03 PM [facility] REPOSITORY [facility] Imaging Services [address] [place] [address] CTA Chest W/WO Contrast MR#: [id number] Acct: [id number] Name: KATHY OCASIO Rep #: [id number] : 1950 F 67 From: Birgit Ridley MD PCP: Tim Alexis MD, Chi Status: REG ER Study: CTA Chest W/WO Contrast Date of Exam: 08/17/17 Exam# [id number] Ordering Dr: Josué Ramon DO STUDY: CTA CHEST REASON FOR EXAM: Female, 67 years old. Chest tightness. RADIATION DOSAGE (If Supplied By Facility): CTDIvol = ( 12.67 ) mGy, DLP = ( 508.29 ) mGycm TECHNIQUE: The examination was performed with the intravenous administration of 75ML ml of Isovue 370 contrast material. Post-processing of the angiographic images was performed, with multiplanar reformation and 3D reconstruction. Individualized dose optimization techniques were used for this CT. COMPARISON: September 13, 2016 FINDINGS: There are postsurgical changes within the left hemithorax. There are emphysematous changes present. There is minimal stable dependent atelectasis within the right lower lobe. Normal enhancement of the main pulmonary artery and right and left pulmonary arteries. Normal enhancement of the bilateral peripheral pulmonary arteries. There is no demonstrated pulmonary embolism. There is atherosclerotic calcification of the aortic arch and descending aorta. There is no demonstrated aortic dissection. Normal heart and pericardium. Normal mediastinum. Normal hilar regions. Normal visualized trachea and bronchi. There are degenerative changes of thoracic spine. The bones are appear demineralized. Normal visualized upper abdomen. CT/CTA Chest W/WO Contrast IMPRESSION: No demonstrated pulmonary embolism or arterial dissection. Emphysema. Atherosclerosis. Postsurgical changes within the left hemithorax. Electronically Signed: Birgit Ridley MD at 19:57 EDT Tel , Service support , CC: Josué Ramon DO; Tim Alexis MD Seam Taper Machine: Signed CHEST 1 VIEW Observed: 08/17/2017 Status: F Source: [place] (PORTABLE) 6:33 PM [facility] REPOSITORY [facility] Imaging Services [address] [place] [address] Chest 1 View (Portable) MR#: [id number] Acct: [id number] Name: KATHY OCASIO Rep #: [id number] : 1950 F 67 From: Corey Mai MD PCP: Tim Alexis MD, Chi Status: REG ER Study: Chest 1 View (Portable) Date of Exam: 08/17/17 Exam# [id number] Ordering Dr: Josué Ramon DO STUDY: X-RAY CHEST REASON FOR EXAM: Female, 67 years old. Chest pain. TECHNIQUE: Single AP portable upright view of the chest. COMPARISON: PA and lateral chest x-ray December 09, 2016; CT chest/thorax March 30, 2017. FINDINGS: The lungs are clear and expanded. There is no demonstrated pleural abnormality. Normal size heart. Normal mediastinum and thoams. Normal visualized pulmonary arteries. There is stable atherosclerotic calcification of the aortic arch. There is a stable minor S-shaped scoliosis of the thoracic spine. There is an old healed fracture deformity of the posterolateral left seventh rib. There is no demonstrated abnormality of the visualized soft tissue structures of the upper abdomen. RAD/Chest 1 View (Portable) IMPRESSION: No acute cardiopulmonary disease. Electronically Signed: Shawn Mai MD at 19:22 EDT , Service support , CC: Josué Ramon DO; Tim Alexis MD Seam Taper Machine: Signed CBC W/DIFF, AUTOMATED Collected: 08/17/2017 Status: F Source: [place] 6:25 PM [facility] REPOSITORY TYPE CODE TESTS RESULT OUT OF RANGE REFERENCE UNITS LAB L100.1000 4.4-11.0 K/mm3 Normal WBC 9.3 LAB L100.1200 4.2-5.4 M/mm3 Normal RBC 4.81 LAB L100.1300 12.0-15.0 g/dl High HGB 15.2 LAB L100.1400 37-47 % Normal HCT 44.1 LAB L100.1500 81-99 fL Normal MCV 91.7 LAB L100.1600 27.0-32.0 pg Normal MCH 31.6 LAB L100.1700 32-36 g/gl Normal MCHC 34.5 LAB L100.1810 11.6-14.6 % Normal RDW CV 14.0 LAB L100.1820 35.1-43.9 fl High RDW SD 46.2 LAB L100.1900 150-450 K/mm3 Normal PLT 307 LAB L100.2000 6.2-12.0 fl Normal MPV 9.3 LAB L100.2100 47-70 % Normal NEUT% 55.3 LAB L100.2200 19-41 % Normal LY% 35.5 LAB L100.2300 0-10 % Normal MONO% 7.8 LAB L100.2400 0-5 % Normal EO% 0.9 LAB L100.2500 0-1 % Normal BASO% 0.3 LAB L100.2550 0.0-0.9 % Normal IM GRAN % 0.200 Result Comment: IG% - Immature Granulocytes (promyelocytes, myelocytes and metamyelocytes) > 1% indicates that a LEFT SHIFT is Present. LAB L100.2620 2.0-7.7 X10 3/uL Normal Absolute Neut 5.1 LAB L100.2720 0.83-4.51 X10 3/ul Normal Absolute Lymph 3.29 Performed By: #### L100.0100 #### [facility] Laboratory [address] [place], [address] D-DIMER QUANTITATIVE Collected: 08/17/2017 Status: F Source: [place] (DVT/PE) 6:25 PM [facility] REPOSITORY TYPE CODE TESTS RESULT OUT OF RANGE REFERENCE UNITS LAB L300.8000 0.27-0.49 FEU/ug/m High alert D-DIMER 0.69 QUANT Result Comment: D-Dimer ELEVATED (>0.49): Additional studies and clinical assessments are indicated to conclude diagnosis of: Deep Vein Thrombosis (DVT) or Pulmonary Embolism (PE) CRITICAL VALUE VERIFIED. CALLED TO [facility] 08/17/17 1900 Julianna Saavedra. RESULTS READ BACK BY SAME . Performed By: #### L300.8000 #### [facility] Laboratory [address] [place], [address] BASIC METABOLIC Collected: 08/17/2017 Status: F Source: [place] PROFILE (BMP) 6:25 PM [facility] REPOSITORY Order Comment: 'TROP' Serial specimen #1, #2, #3, or #4: 1 TYPE CODE TESTS RESULT OUT OF RANGE REFERENCE UNITS LAB L501.0100 74-106 mg/dL Normal GLU 98 Result Comment: Please note revised GLUCOSE reference range effective 2017. LAB L501.1000 7-18 mg/dL Normal BUN 15 LAB L501.1100 0.55-1.02 mg/dL Normal CREAT,SERUM 0.91 Result Comment: The validity of the calculated GFR AND GFRAA in patients over 70 years has not been determined. Clinical correlation is essential. LAB L501.1110 >60 mL/min Normal EST GFR 65 Result Comment: Non- GFR Calc LAB L501.1115 >60 mL/min Normal EST GFR - AA 79 Result Comment: GFR Calc LAB L501.1255 ml/min Normal Estimated CRCL 44.65 LAB L501.1300 10-20 RATIO Normal BUN/CRE 16.5 LAB L501.2200 8.5-10 mg/dL Normal .1 CA 9.3 LAB L501.5300 136-14 mmol/L Normal 5 NA 143 LAB L501.5600 3.5-5. mmol/L Normal 1 K 3.6 LAB L501.5900 98-107 mmol/L High CL 108 LAB L501.6100 21.0-3 mmol/L Normal 2.0 CO2 26.0 LAB L501.6200 5-15 Normal GAP 9 Performed By: #### L500.2500, L501.2450, L501.4010 #### [facility] [address] [place], [address] LIPASE Collected: 08/17/2017 Status: F Source: [place] 6:25 PM [facility] REPOSITORY Order Comment: 'TROP' Serial specimen #1, #2, #3, or #4: 1 TYPE CODE TESTS RESULT OUT OF RANGE REFERENCE UNITS LAB L501.2450 73-393 U/L Normal LIPASE 191 Performed By: #### L500.2500, L501.2450, L501.4010 #### [facility] [address] [place], [address] TROPONIN-I Collected: 08/17/2017 Status: F Source: [place] 6:25 PM [facility] REPOSITORY Order Comment: 'TROP' Serial specimen #1, #2, #3, or #4: 1 TYPE CODE TESTS RESULT OUT OF RANGE REFERENCE UNITS LAB L501.4010 <0.06 ng/mL Normal < 0.02 TROPONIN-I Result Comment: TROPONIN-I EXPECTED VALUES <0.05 NEGATIVE 0.06 - 0.59 AT RISK OF MO > OR = 0.60 SUGGEST MO Performed By: #### L500.2500, L501.2450, L501.4010 #### [facility] [address] [facility] [place], [place], [address] CBC W/DIFF, AUTOMATED Collected: 08/10/2017 Status: F Source: [place] 1:52 PM [facility] REPOSITORY TYPE CODE TESTS RESULT OUT OF RANGE REFERENCE UNITS LAB L100.1000 4.4-11.0 K/mm3 Normal WBC 8.4 LAB L100.1200 4.2-5.4 M/mm3 Normal RBC 4.72 LAB L100.1300 12.0-15.0 g/dl Normal HGB 14.6 LAB L100.1400 37-47 % Normal HCT 43.8 LAB L100.1500 81-99 fL Normal MCV 92.8 LAB L100.1600 27.0-32.0 pg Normal MCH 30.9 LAB L100.1700 32-36 g/gl Normal MCHC 33.3 LAB L100.1810 11.6-14.6 % Normal RDW CV 14.0 LAB L100.1820 35.1-43.9 fl High RDW SD 46.1 LAB L100.1900 150-450 K/mm3 Normal PLT 322 LAB L100.2000 6.2-12.0 fl Normal MPV 9.9 LAB L100.2100 47-70 % Normal NEUT% 56.5 LAB L100.2200 19-41 % Normal LY% 32.9 LAB L100.2300 0-10 % Normal MONO% 8.8 LAB L100.2400 0-5 % Normal EO% 1.0 LAB L100.2500 0-1 % Normal BASO% 0.4 LAB L100.2550 0.0-0.9 % Normal IM GRAN % 0.400 Result Comment: IG% - Immature Granulocytes (promyelocytes, myelocytes and metamyelocytes) > 1% indicates that a LEFT SHIFT is Present. LAB L100.2620 2.0-7.7 X10 3/uL Normal Absolute Neut 4.8 LAB L100.2720 0.83-4.51 X10 3/ul Normal Absolute Lymph 2.77 Performed By: #### L100.0100 #### [facility] [address] [place], [place], [address] VITAMIN D,25 HYDROXY Collected: 08/10/2017 Status: F Source: [place] 1:52 PM [facility] REPOSITORY TYPE CODE TESTS RESULT OUT OF RANGE REFERENCE UNITS LAB L506.1000 29.95-100.01 ng/mL Normal Vitamin D 31.4 25-OH Result Comment: Vitamin D 25(OH) Status Range Deficiency <20 ng/mL (50nmol/L) Insuffciency 20 - 30 ng/mL (50 - 75 nmol/L) Sufficiency 30 - 100 ng/mL (75 - 250 nmol/L) Toxicity >100 ng/mL (>250 nmol/L) Performed By: #### L506.1000 #### [facility] [address] [facility] [place], [address] COMPREHENSIVE METABOLIC Collected: 08/10/2017 Status: F Source: [facility] 1:52 PM [facility] REPOSITORY TYPE CODE TESTS RESULT OUT OF RANGE REFERENCE UNITS LAB L501.0100 74-106 mg/dL Normal GLU 89 Result Comment: Please note revised GLUCOSE reference range effective 2017. LAB L501.1000 7-18 mg/dL Normal BUN 14 LAB L501.1100 0.55-1.02 mg/dL Normal CREAT,SERUM 0.91 Result Comment: The validity of the calculated GFR AND GFRAA in patients over 70 years has not been determined. Clinical correlation is essential. LAB L501.1110 >60 mL/min Normal EST GFR 65 Result Comment: Non- GFR Calc LAB L501.1115 >60 mL/min Normal EST GFR - AA 79 Result Comment: GFR Calc LAB L501.1300 10-20 RATIO Normal BUN/CRE 15.4 LAB L501.1500 6.4-8.2 g/dL T Normal PROT 8.0 LAB L501.1800 3.2-5.0 g/dL Normal ALB 4.1 LAB L501.1950 2.2-4.2 g/dL Normal GLOB 3.9 LAB L501.2000 0.9-2.4 RATIO Normal A/G 1.1 LAB L501.2200 8.5-10.1 mg/dL CA Normal 9.4 LAB L501.4100 15-37 U/L Normal AST 26 LAB L501.4305 45-117 U/L Normal ALK P 57 LAB L501.4405 13-56 U/L Normal ALT 38 Result Comment: Please note revised ALT reference range effective 2017. LAB L501.4600 0.20-1.00 mg/dL Normal T BILI 0.30 LAB L501.5300 136-145 mmol/L Normal NA 140 LAB L501.5600 3.5-5.1 mmol/L Normal K 4.2 LAB L501.5900 98-107 mmol/L Normal CL 105 LAB L501.6100 21.0-32.0 mmol/L Normal CO2 28.0 LAB L501.6200 5-15 Normal GAP 7 Performed By: #### L500.4050, L501.9520 #### [facility] Laboratory [address] [place], [address] THYROID STIM HORMONE Collected: 08/10/2017 Status: F Source: [place] (TSH) 1:52 PM [facility] REPOSITORY TYPE CODE TESTS RESULT OUT OF RANGE REFERENCE UNITS LAB L501.9520 0.358-3.74 uIU/mL Normal TSH 0.80 Performed By: #### L500.4050, L501.9520 #### [facility] [address] [place], [address] Observed: 07/27/2017 Status: F Source: [place] RESPIRATORY PANEL 5:11 PM [facility] MOLECULAR REPOSITORY RP PANEL ADENOVIRUS Not Detected HUMAN METAPHNEUMO Not Detected INFLUENZA A Not Detected INFLUENZA A (SUBTYPE H1) Not Detected INFLUENZA A (SUBTYPE H3) Not Detected INFLUENZA B Not Detected PARAINFLUENZA 1 Not Detected PARAINFLUENZA 2 Not Detected PARAINFLUENZA 3 Not Detected PARAINFLUENZA 4 Not Detected RHINOVIRUS Not Detected RSV A Not Detected RSV B Not Detected NAAT METHOD Testing was performed using nucleic acid amplification Performed By: #### M100.638 #### [facility] [address] [place], [address] ALLERGIES ALLERGIES DATE TYPE / CODE NAME / CODE REACTION SEVERITY SOURCE 04/12/2018 Drug morphine/[id number] Low blood Unknown [place] Allergy/416 545(RXNORM) pressure [facility] 779115([facility] ED CT) Repository 04/12/2018 Drug cephalexin/F0060 Other Unknown [place] Allergy/416 52749(RXNORM) [facility] 533300([facility] ED CT) Repository 04/12/2018 Drug doxycycline/F006 Itching Unknown [place] Allergy/416 846950(RXNORM) [facility] 252782([facility] ED CT) Repository 04/12/2018 Drug metoclopramide/F Other Unknown [place] Allergy/416 068171538(RXNORM [facility] 738912[facility]) Repository 04/12/2018 Drug citalopram/F0060 Other Unknown [place] Allergy/416 82444(RXNORM) [facility] 045449([facility] ED CT) Repository 04/12/2018 Drug pregabalin/F0060 Other Unknown [place] Allergy/416 70928(RXNORM) [facility] 626066([facility] ED CT) Repository 03/23/2016 DRUG MORPHINE UNKNOWN [facility] INGREDI/419 [facility] 432951(SNOM Repository ED CT) 04/24/2013 DRUG CITALOPRAM Mental Chg [facility] INGREDI/[address] [place] [address] 494903(SNOM Repository ED CT) 10/10/2008 DRUG PREGABALIN [address] 422197(SNOM Repository ED CT) 07/02/2008 DRUG CEPHALEXIN INTOLERANCE [address] 498955(SNOM Repository ED CT) ENCOUNTERS ENCOUNTERS ADMIT/DISCHARGE ACCOUNT ADMITTING ENCOUNTER LOCATION SOURCE NUMBER CLASS 04/20/2018 [id number] Ambulatory [facility] ing:LABSPEC Repository 04/20/2018/04/24/20 [id number] Ambulatory [address] Repository 04/14/2018 [id number] [facility] ing:OPBI Repository 04/12/2018/04/12/20 [id number] Ambulatory BMSBuilding:B [place] 18 [facility] Repository 04/05/2018 [id number] Ambulatory BMSBuilding:B [place] MS.[facility] Repository 04/05/2018 [id number] [facility] ing:OMD Repository 04/04/2018/04/05/20 [id number] Ambulatory [address] Repository 03/30/2018 [id number] [facility] ing:CT Repository 03/24/2018/03/28/20 [id number] [facility], Inpatient [place] [address] [facility] ing:PI3Ykma: Repository [id number]: 1 03/24/2018 [id number] [place], Ambulatory BMSBuilding:B [place].Critical access hospital Repository 03/24/2018 [id number] [place], Ambulatory BMSBuilding:B [place] [facility].Critical access hospital Repository 03/24/2018 [id number] [place], Ambulatory BMSBuilding:B [place] [facility].Critical access hospital Repository 03/24/2018 [id number] [place], Ambulatory BMSBuilding:B [place] [facility].Critical access hospital Repository 03/24/2018 [id number] [place], Ambulatory BMSBuilding:B [place] MS.[facility] Repository 02/02/2018 [id number] [facility] ing:PSN Repository 01/03/2018 [id number] [facility] ing:CT Repository 01/03/2018 [id number] [facility] ing:POLAB3 Repository 01/03/2018 [id number] [facility] ing:POLAB3 Repository 12/20/2017 [id number] [facility] ing:LABSPEC Repository 12/20/2017/12/21/19 [id number] Ambulatory BMSBuilding:B [place] 18 MS.[facility] Repository 12/13/2017/12/14/19 [id number] Ambulatory BMSBuilding:B [place] 18 MS.[facility] Repository 10/27/2017/10/28/19 [id number] Ambulatory BMSBuilding:B [place] 18 MS.[facility] Repository 10/13/2017/10/14/19 [id number] Ambulatory BMSBuilding:B [place] 18 [facility] Repository 09/29/2017/09/30/19 [id number] Ambulatory BMSBuilding:B [place] 18 MS.On license of [facility] Repository 09/26/2017/09/27/19 [id number] Ambulatory BMSBuilding:B [place] 18 MS.On license of [facility] Repository 09/22/2017 [id number] Ambulatory BMSBuilding:B [place].On license of [facility] Repository 09/12/2017/09/13/19 [id number] Ambulatory BMSBuilding:B [place] 18 MS.On license of [facility] Repository 09/08/2017/09/09/19 [id number] Ambulatory BMSBuilding:B [place] 18 MS.On license of [facility] Repository 09/07/2017/09/08/19 [id number] Ambulatory BMSBuilding:B [place] 18 [place].On license of [facility] Repository 09/01/2017/09/02/19 [id number] Ambulatory BMSBuilding:B [place] 18 [place].On license of [facility] Repository 08/30/2017/08/31/19 [id number] Ambulatory BMSBuilding:B [place] 18 [facility] Repository 08/29/2017/08/30/19 [id number] Ambulatory BMSBuilding:B [place] 18 [facility] Repository 08/23/2017/08/24/19 [id number] Ambulatory BMSBuilding:B [place] 18 [facility] Repository 08/18/2017/08/19/19 [id number] Ambulatory BMSBuilding:W [place] 18 [facility] Repository 08/18/2017/08/19/19 [id number] Ambulatory BMSBuilding:W [place] 18 [facility] Repository 08/17/2017/08/19/19 [id number] [facility], Ambulatory [place] 18 [facility] ing:PCURoom: Repository SRH604Has: 1 08/17/2017 [id number] [facility], Ambulatory BMSBuilding:B [place] Ghasem MS.Critical access hospital Repository 08/17/2017 [id number] [facility], Ambulatory BMSBuilding:B [place] Kayasem MS.Critical access hospital Repository 08/10/2017 [id number] Ambulatory [facility] ing:POLAB3 Repository 07/27/2017 [id number] Ambulatory [facility] ing:PSN Repository PAYERS PAYERS ENCOUNTER GUARANTOR PAYER SUBSCRIBER SOURCE 04/20/2018 KATHY R Primary KATHY R [place] [id number] Insurance:MEDICARE SHEDRONDOB: Community CARRIAGE PART A BPolicy Number: [id number], [place] [id number] Repository 29452Okk: 330) Date:2018-04-20 [phone] () 04/20/2018 Secondary KATHY R [place] Insurance:HUMANA SHEDRONDOB: Community COMMERCIALPolicy [id number] Hospital Number: Repository [id number] Date:6202-79-35RA [address] [place] [address]SU: 04/20/2018 Tertiary NOT GIVENUNK [place] Insurance:SELF PAY [facility] Number: Effective Repository Date:2018-04-20 04/14/2018 KATHY R Primary KATHY R [place] [id number] Insurance:MEDICARE SHEDRONDOB: Community CARRIAGE PART A BPolicy Number: [id number], [place] [id number] Repository 610[address]Jxf: (330) Date:2018-04-12 [phone] () 04/14/2018 Secondary KATHY R [place] Insurance:HUMANA SHEDRONDOB: Community COMMERCIALPolicy [id number] Hospital Number: Repository [id number] Date:0576-71-78PQ [address] [place] [address]FJ: 04/14/2018 Tertiary NOT GIVENUNK [place] Insurance:SELF PAY [facility] Hospital Number: Effective Repository Date:2018-04-12 04/12/2018 KATHY R Primary KATHY R [place] [id number] Insurance:MEDICARE SHEDRONDOB: Community CARRIAGE PART A BPolicy Number: [id number], [place] [id number] Repository [address]Bsl: 330) Date:2018-04-05 [phone] () 04/12/2018 Secondary KATHY R [place] Insurance:HUMANA SHEDRONDOB: [facility] [id number] Hospital Number: Repository [id number] Date:4428-70-93NI [address] [place] [address]HD: 04/12/2018 Tertiary NOT GIVENUNK [place] Insurance:SELF PAY [facility] Hospital Number: Effective Repository Date:2018-04-11 04/05/2018 KATHY R Primary KATHY R [place] [id number] Insurance:MEDICARE SHEDRONDOB: Community CARRIAGE PART A BPolicy Number: [id number], [place] [id number] Repository [address]89[address]Qcy: (330) Date:2013-12-14 [phone] () 04/05/2018 Secondary KATHY R [place] Insurance:HUMANA SHEDRONDOB: Community COMMERCIALPolicy [id number] Hospital Number: Repository [id number] Date:6529-22-91[address] [address]DH: 04/05/2018 Tertiary NOT GIVENUNK [place] Insurance:SELF PAY [facility] Hospital Number: Effective Repository Date:2018-04-05 04/05/2018 KATHY R Primary KATHY R [place] [id number] Insurance:MEDICARE SHEDRONDOB: Community CARRIAGE PART A BPolicy Number: [id number], [place] [id number] Repository [address]25[address]Liw: (278) Date:2013-12-14 [phone] () 04/05/2018 Secondary KATHY R [place] Insurance:HUMANA SHEDRONDOB: [facility] [id number] Hospital Number: Repository [id number] Date:7468-01-07PP[address] [address]OO: 04/05/2018 Tertiary NOT GIVENUNK [place] Insurance:SELF PAY [facility] Hospital Number: Effective Repository Date:2016-08-03 03/30/2018 KATHY R Primary KATHY R [place] [id number] Insurance:MEDICARE SHEDRONDOB: Community CARRIAGE PART A BPolicy Number: [id number], [place] [id number] Repository 21182Mzd: (805) Date:2018-01-25 [phone] (HP) 03/30/2018 Secondary KATHY R [place] Insurance:HUMANA SHEDRONDOB: [facility] [id number] Hospital Number: Repository [id number] Date:4884-87-83BK [address] [address]QA: 03/30/2018 Tertiary NOT GIVENUNK [place] Insurance:SELF PAY [facility] Hospital Number: Effective Repository Date:2018-01-25 03/24/2018 KATHY R Primary KATHY R [place] [id number] Insurance:MEDICARE SHEDRONDOB: Community CARRIAGE PART A BPolicy Number: [id number], [place] [id number] Repository 43528Jbu: (717) Date:2018-03-24 [phone] () 03/24/2018 Secondary KATHY R [place] Insurance:HUMANA SHEDRONDOB: [facility] [id number] Hospital Number: Repository [id number] Date:8099-35-44AC [address] [address]KM: 03/24/2018 Tertiary NOT GIVENUNK [place] Insurance:SELF PAY [facility] Hospital Number: Effective Repository Date:2018-03-24 03/24/2018 KATHY R Primary KATHY R [place] [id number] Insurance:MEDICARE SHEDRONDOB: Community CARRIAGE PART A BPolicy Number: [id number], [place] [id number] Repository 380[address]Wvc: 330) Date:2018-03-24 [phone] () 03/24/2018 Secondary KATHY R [place] Insurance:HUMANA SHEDRONDOB: [facility] [id number] Hospital Number: Repository [id number] Date:0938-89-20ZB[address] [address]TF: 03/24/2018 Tertiary NOT GIVENUNK [place] Insurance:SELF PAY [facility] Hospital Number: Effective Repository Date:2018-03-24 03/24/2018 KATHY R Primary KATHY R [place] [id number] Insurance:MEDICARE SHEDRONDOB: Community CARRIAGE PART A BPolicy Number: [id number], [place] [id number] Repository 17[address]Rey: 330) Date:2018-03-24 [phone] () 03/24/2018 Secondary KATHY R [place] Insurance:HUMANA SHEDRONDOB: [facility] [id number] Hospital Number: Repository [id number] Date:7866-34-02ZD [address] [place] [address]EK: 03/24/2018 Tertiary NOT GIVENUNK [place] Insurance:SELF PAY [facility] Number: Effective Repository Date:2018-03-24 03/24/2018 KATHY R Primary KATHY R [place] [id number] Insurance:MEDICARE SHEDRONDOB: Community CARRIAGE PART A BPolicy Number: [id number], [place] [id number] Repository 01529Zpk: (628) Date:2018-03-24 [phone] () 03/24/2018 Secondary KATHY R [place] Insurance:HUMANA SHEDRONDOB: [facility] [id number] Hospital Number: Repository [id number] Date:6667-99-93XS[address] [address]XI: 03/24/2018 Tertiary NOT GIVENUNK [place] Insurance:SELF PAY [facility] Number: Effective Repository Date:2018-03-24 03/24/2018 KATHY R Primary KATHY R [place] [id number] Insurance:MEDICARE SHEDRONDOB: Community CARRIAGE PART A BPolicy Number: [id number], [place] [id number] Repository [address]Icj: (879) Date:2018-03-24 [phone] () 03/24/2018 Secondary KATHY R [place] Insurance:HUMANA SHEDRONDOB: [facility] [id number] Hospital Number: Repository [id number] Date:2659-79-46KQ [address] [address]AO: 03/24/2018 Tertiary NOT GIVENUNK [place] Insurance:SELF PAY [facility] Number: Effective Repository Date:2018-03-24 03/24/2018 KATHY R Primary KATHY R [place] [id number] Insurance:MEDICARE SHEDRONDOB: Community CARRIAGE PART A BPolicy Number: [id number], [place] [id number] Repository [address]Bwz: (488) Date:2018-03-24 [phone] () 03/24/2018 Secondary KATHY R [place] Insurance:HUMANA SHEDRONDOB: Community [facility] [id number] Hospital Number: Repository [id number] Date:9375-22-10HZ [address] [place] [address]TJ: 03/24/2018 Tertiary NOT GIVENUNK [place] Insurance:SELF PAY [facility] Hospital Number: Effective Repository Date:2018-03-24 02/02/2018 KATHY R Primary KATHY R [place] [id number] Insurance:MEDICARE SHEDRONDOB: Community CARRIAGE PART A BPolicy Number: [id number] [id number] Repository 86360Dbs: 330) Date:2018-01-02 [phone] () 02/02/2018 Secondary KATHY R Chelsey Insurance:HUMANA SHEDRONDOB: [facility] [id number] Hospital Number: Repository [id number] Date:5346-56-67BD [address] [place] [address]JW: 02/02/2018 Tertiary NOT GIVENUNK [place] Insurance:SELF PAY [facility] Number: Effective Repository Date:2018-01-02 01/03/2018 KATHY R Primary KATHY R [place] [id number] Insurance:MEDICARE SHEDRONDOB: Community CARRIAGE PART A BPolicy Number: [id number], [place] [id number] Repository 68244Gpd: (994) Date:2018-01-03 [phone] () 01/03/2018 Secondary KATHY R Chelsey Insurance:HUMANA SHEDRONDOB: [facility] [id number] Hospital Number: Repository [id number] Date:6693-90-04WJ [address] [place] [address]JM: 01/03/2018 Tertiary NOT GIVENUNK [place] Insurance:SELF PAY [facility] Number: Effective Repository Date:2018-01-03 01/03/2018 Kathy R Primary Kathy R Vallejo [id number] Insurance:MEDICARE ShedronDOB: Community Carriage PART A BPolicy Number: [id number] [place], [place] [id number] Repository [address]Hsn: (330) Date:2018-01-03 [phone] () 01/03/2018 Secondary Kathy R Chelsey Insurance:HUMANA ShedronDOB: Community COMMERCIALPolicy [id number] Hospital Number: Repository [id number] Date:3812-37-03PE [address] [place] [address]BV: 01/03/2018 Tertiary NOT GIVENUNK [place] Insurance:SELF PAY [facility] Number: Effective Repository Date:2018-01-03 01/03/2018 Kathy R Primary Kathy R Chelsey [id number] Insurance:MEDICARE ShedronDOB: Community Carriage PART A BPolicy Number: [id number] [place], [place] [id number] Repository 6[address]Sgb: (884) Date:2018-01-03 [phone] () 01/03/2018 Secondary Kathy R [place] Insurance:HUMANA ShedronDOB: [facility] [id number] Hospital Number: Repository [id number] Date:9907-79-00DC [address] [place] [address]XD: 01/03/2018 Tertiary NOT GIVENUNK [place] Insurance:SELF PAY [facility] Number: Effective Repository Date:2018-01-03 12/20/2017 Akthy R Primary Kathy R [place] [id number] Insurance:MEDICARE ShedronDOB: Community Carriage PART A BPolicy Number: [id number] [place], [place] [id number] Repository 160[address]Sbz: (330) Date:2017-12-20 [phone] (HP) 12/20/2017 Secondary Kathy R [place]lejo Insurance:HUMANA ShedronDOB: Community COMMERCIALPolicy [id number] Hospital Number: Repository [id number] Date:0861-05-16PI [address] [place] [address]IC: 12/20/2017 Tertiary NOT GIVENUNK [place] Insurance:SELF PAY [facility]: Effective Repository Date:2017-12-20 12/20/2017 Kathy R Primary Kathy R Chelsey [id number] Insurance:MEDICARE ShedronDOB: Community Carriage PART A BPolicy Number: [id number] [place], [place] [id number] Repository 89717Kae: (881) Date:2017-12-19 [phone] () 12/20/2017 Secondary Kathy R [place] Insurance:HUMANA ShedronDOB: [facility] [id number] Hospital Number: Repository [id number] Date:3960-08-94NK[address] [address]SP: 12/20/2017 Tertiary NOT GIVENUNK [place] Insurance:SELF PAY [facility] Hospital Number: Effective Repository Date:2017-12-20 12/13/2017 Kathy R Primary Kathy R Chelsey [id number] Insurance:MEDICARE ShedronDOB: Community Carriage PART A BPolicy Number: [id number] [place], [place] [id number] Repository 43731Eiv: (125) Date:2017-12-12 [phone] () 12/13/2017 Secondary Kathy R Chelsey Insurance:HUMANA ShedronDOB: [facility] [id number] Hospital Number: Repository [id number] Date:1981-90-96VE [address] [address]JO: 12/13/2017 Tertiary NOT GIVENUNK [place] Insurance:SELF PAY [facility] Hospital Number: Effective Repository Date:2017-12-13 10/27/2017 Kathy R Primary Kathy R [place]jo [id number] Insurance:MEDICARE ShedronDOB: Community Carriage PART A BPolicy Number: [id number] [place], [place] [id number] Repository 64255Bbf: (330) Date:2017-10-13 [phone] () 10/27/2017 Secondary Kathy R Chelsey Insurance:HUMANA ShedronDOB: Community COMMERCIALPolicy [id number] Hospital Number: Repository [id number] Date:2279-27-09EH [address] [address]UW: 10/27/2017 Tertiary NOT GIVENUNK [place] Insurance:SELF PAY [facility] Hospital Number: Effective Repository Date:2017-10-27 10/13/2017 Kathy R Primary Kathy R [place] [id number] Insurance:MEDICARE ShedronDOB: Community Carriage PART A BPolicy Number: [id number] [place], [place] [id number] Repository 516[address]Dvf: 330) Date:2017-09-29 [phone] () 10/13/2017 Secondary Kathy R [place]jo Insurance:HUMANA ShedronDOB: [facility] [id number] Hospital Number: Repository [id number] Date:1845-51-78VG[address] [address]UU: 10/13/2017 Tertiary NOT GIVENUNK [place] Insurance:SELF PAY [facility] Number: Effective Repository Date:2017-10-13 09/29/2017 Kathy R Primary Kathy R Chelsey [id number] Insurance:MEDICARE ShedronDOB: Community Carriage PART A BPolicy Number: [id number] [place], [place] [id number] Repository 80647Xug: (330) Date:2017-09-12 [phone] () 09/29/2017 Secondary Kathy R Chelsey Insurance:HUMANA ShedronDOB: [facility] COMMERCIALPolicy [id number] Hospital Number: Repository [id number] Date:3578-13-25MB [address] [place] [address]KZ: 09/29/2017 Tertiary NOT GIVENUNK [place] Insurance:SELF PAY [facility] Hospital Number: Effective Repository Date:2017-09-29 09/26/2017 Kathy R Primary Kathy R Chelsey [id number] Insurance:MEDICARE ShedronDOB: Community Carriage PART A BPolicy Number: [id number] [place], [place] [id number] Repository 473[address]Zia: (260) Date:2017-09-07 [phone] () 09/26/2017 Secondary Kathy R [place] Insurance:HUMANA ShedronDOB: Community [facility] [id number] Hospital Number: Repository [id number] Date:1680-96-77EX [address] [address]KK: 09/26/2017 Tertiary NOT GIVENUNK [place] Insurance:SELF PAY [facility] Hospital Number: Effective Repository Date:2017-09-26 09/22/2017 Kathy R Primary Kathy R [place] [id number] Insurance:MEDICARE ShedronDOB: Community Carriage PART A BPolicy Number: [id number] [place], [place] [id number] Repository 30784Boo: (292) Date:2017-09-12 [phone] () 09/22/2017 Secondary Kathy R Chelsey Insurance:HUMANA ShedronDOB: Community [facility] [id number] Hospital Number: Repository [id number] Date:2409-42-28FY [address] [address]SL: 09/22/2017 Tertiary NOT GIVENUNK [place] Insurance:SELF PAY [facility] Hospital Number: Effective Repository Date:2017-09-12 09/12/2017 Kathy R Primary Kathy R [place] [id number] Insurance:MEDICARE ShedronDOB: Community Carriage PART A BPolicy Number: [id number] [place], [place] [id number] Repository 68506Ogh: ([phone]) Date:2017-09-01 [phone] () 09/12/2017 Secondary Kathy R [place] Insurance:HUMANA ShedronDOB: Community COMMERCIALPolic [id number] Hospital Number: Repository [id number] Date:8190-82-03LP[address] [address]HO: 09/12/2017 Tertiary NOT GIVENUNK [place] Insurance:SELF PAY [facility] Hospital Number: Effective Repository Date:2017-09-12 09/08/2017 Kathy R Primary Kathy R [place] [id number] Insurance:MEDICARE ShedronDOB: Community Carriage PART A BPolicy Number: [id number] [place], [place] [id number] Repository 32177Bos: (790) Date:2017-09-01 [phone] () 09/08/2017 Secondary Kathy R Chelsey Insurance:HUMANA ShedronDOB: [facility] [id number] Hospital Number: Repository [id number] Date:8164-76-66BH[address] [address]WF: 09/08/2017 Tertiary NOT GIVENUNK [place] Insurance:SELF PAY [facility] Hospital Number: Effective Repository Date:2017-09-08 09/07/2017 Kathy R Primary Kathy R Chelsey [id number] Insurance:MEDICARE ShedronDOB: Community Carriage PART A BPolicy Number: [id number] [place], [place] [id number] Repository 32702Hho: 330) Date:2017-09-01 [phone] () 09/07/2017 Secondary Kathy R [place] Insurance:HUMANA ShedronDOB: [facility] [id number] Hospital Number: Repository [id number] Date:4568-61-46ID[address] [address]EJ: 09/07/2017 Tertiary NOT GIVENUNK [place] Insurance:SELF PAY [facility] Number: Effective Repository Date:2017-09-07 09/01/2017 Kathy R Primary Kathy R [place] [id number] Insurance:MEDICARE ShedronDOB: Community Carriage PART A BPolicy Number: [id number] [place], [place] [id number] Repository 81842Cyi: ([phone]) Date:2017-08-29 [phone] () 09/01/2017 Secondary Kathy R [place] Insurance:HUMANA ShedronDOB: [facility] [id number] Hospital Number: Repository [id number] Date:0098-98-82KB[address] [address]LT: 09/01/2017 Tertiary NOT GIVENUNK [place] Insurance:SELF PAY [facility] Number: Effective Repository Date:2017-09-01 08/30/2017 Kathy R Primary Kathy R Chelsey [id number] Insurance:MEDICARE ShedronDOB: Community Carriage PART A BPolicy Number: [id number] [place], [place] [id number] Repository 01180Blv: (516) Date:2017-08-29 [phone] () 08/30/2017 Secondary Kathy R [place] Insurance:HUMANA ShedronDOB: [facility] [id number] Hospital Number: Repository [id number] Date:6837-22-64SO[address] [address]LN: 08/30/2017 Tertiary NOT GIVENUNK [place] Insurance:SELF PAY [facility] Number: Effective Repository Date:2017-08-30 08/29/2017 Kathy R Primary Kathy R Chelsey [id number] Insurance:MEDICARE ShedronDOB: Community Carriage PART A BPolicy Number: [id number] [place], [place] [id number] Repository 53986Sgm: ([phone]) Date:2017-08-23 [phone] () 08/29/2017 Secondary Kathy R Chelsey Insurance:HUMANA ShedronDOB: [facility] [id number] Hospital Number: Repository [id number] Date:3553-78-00OY [address] [place] [address]FB: 08/29/2017 Tertiary NOT GIVENUNK Cehlsey Insurance:SELF PAY [facility] Number: Effective Repository Date:2017-08-29 08/23/2017 Kathy R Primary Kathy R [place] [id number] Insurance:MEDICARE ShedronDOB: Community Carriage PART A BPolicy Number: [id number] [place], [place] [id number] Repository 495[address]Xpz: (870) Date:2017-08-17 [phone] () 08/23/2017 Secondary Kathy R Chelsey Insurance:HUMANA ShedronDOB: [facility] [id number] Hospital Number: Repository [id number] Date:0885-66-02SJ[address] [address]BH: 08/23/2017 Tertiary NOT GIVENUNK [place] Insurance:SELF PAY [facility] Number: Effective Repository Date:2017-08-23 08/18/2017 Kathy R Primary Kathy R Chelsey [id number] Insurance:MEDICARE ShedronDOB: Community Carriage PART A BPolicy Number: [id number] [place], [place] [id number] Repository 52982Bgm: (249) Date:2017-08-17 [phone] () 08/18/2017 Secondary Kathy R [place] Insurance:HUMANA ShedronDOB: [facility] [id number] Hospital Number: Repository [id number] Date:8566-99-09WO [address] [place] [address]AT: 08/18/2017 Tertiary NOT GIVENUNK [place] Insurance:SELF PAY [facility] Hospital Number: Effective Repository Date:2017-08-18 08/18/2017 Kathy R Primary Kathy R [place] [id number] Insurance:MEDICARE ShedronDOB: Community Carriage PART A BPolicy Number: [id number] [place], [place] [id number] Repository 35131Jmn: (763) Date:2017-08-17 [phone] () 08/18/2017 Secondary Kathy R Chelsey Insurance:HUMANA ShedronDOB: [facility] [id number] Hospital Number: Repository [id number] Date:5671-23-84WH [address] [place] [address]QU: 08/18/2017 Tertiary NOT GIVENUNK [place] Insurance:SELF PAY [facility] Number: Effective Repository Date:2017-08-18 08/17/2017 Kathy R Primary Kathy R [place]jo [id number] Insurance:MEDICARE ShedronDOB: Community Carriage PART A BPolicy Number: [id number] [place], [place] [id number] Repository 98458Ybv: (228) Date:2017-08-17 [phone] () 08/17/2017 Secondary Kathy R Chelsey Insurance:HUMANA ShedronDOB: [facility] [id number] Hospital Number: Repository [id number] Date:2806-57-18HI [address] [place] [address]VR: 08/17/2017 Tertiary NOT GIVENUNK [place] Insurance:SELF PAY [facility] Number: Effective Repository Date:2017-08-17 08/17/2017 Kathy R Primary Kathy R Chelsey [id number] Insurance:MEDICARE ShedronDOB: Community Carriage PART A BPolicy Number: [id number] [place], [place] [id number] Repository 60442Jpt: (703) Date:2017-08-17 [phone] () 08/17/2017 Secondary Kathy R [place] Insurance:HUMANA ShedronDOB: [facility] 1088-10-20VCZ Hospital Number: Repository [id number] Date:2561-02-84VW [address] [place] [address]NA: 08/17/2017 Tertiary NOT GIVENUNK [place] Insurance:SELF PAY [facility] Hospital Number: Effective Repository Date:2017-08-17 08/17/2017 Kathy R Primary Kathy R Chelsey [id number] Insurance:MEDICARE ShedronDOB: Community Carriage PART A BPolicy Number: [id number] [place], [place] [id number] Repository 06355Aaw: (330) Date:2017-08-17 [phone] () 08/17/2017 Secondary Kathy R Chelsey Insurance:HUMANA ShedronDOB: Community COMMERCIALPolicy [id number] Hospital Number: Repository [id number] Date:1750-95-47IV [address] [address]BS: 08/17/2017 Tertiary NOT GIVENUNK [place] Insurance:SELF PAY [facility] Hospital Number: Effective Repository Date:2017-08-17 08/10/2017 Kathy R Primary Kathy R [place] [id number] Insurance:MEDICARE ShedronDOB: Community Carriage PART A BPolicy Number: [id number] [place], [place] [id number] Repository 64492Yft: (330) Date:2017-08-10 [phone] () 08/10/2017 Secondary Kathy R Chelsey Insurance:HUMANA ShedronDOB: [facility] [id number] Hospital Number: Repository [id number] Date:4985-90-89CX [address] [place] [address]YM: 08/10/2017 Tertiary NOT GIVENUNK [place] Insurance:SELF PAY [facility] Hospital Number: Effective Repository Date:2017-08-10 07/27/2017 Kathy R Primary Kathy R [place]jo [id number] Insurance:MEDICARE ShedronDOB: Community Carriage PART A BPolicy Number: [id number] [place], [place] [id number] Repository 43330Ucs: (330) Date:2017-07-27 [phone] (HP) 07/27/2017 Secondary Kathy R Chelsey Insurance:HUMANA ShedronDOB: Community COMMERCIALPolicy [id number] Hospital Number: Repository [id number] Date:3266-28-49[address]QRAJSKK, [place] [address]BR: 07/27/2017 Tertiary NOT GIVENUNK [place] Insurance:SELF PAY [facility] Hospital Number: Effective Repository Date:2017-07-27
== END ==
PROVIDERS: Family Provider Family Medicine; PCP Family Medicine; Visit Provider Surgery
DX: R92.8 Other abnormal and inconclusive findings on diagnostic imaging of breast (principal); N63.10 Unspecified lump in the right breast, unspecified quadrant
CPT/HCPCS: 76642; 77062; 77066; G0279

== ENCOUNTER → 2018-04-20 16:48 | Outpatient (CLI) | payer MEDICARE, OTHER, SELFPAY ==
[2018-04-12 15:25] VITALS: BMI 26.6
--- NOTE | 2018-04-20 14:00 | CYSPIN_PTH ---
PATIENT: CARYN OCASIO LOC: [facility] U#:[id number] AGE/SX: 75/F ROOM: RE04/20/[address]: Dr. Carlos Alberto Schultz MD : 1950 BED: DIS: SPEC #: [id number] RECD: 04/21/18 08:20 STATUS: SAMIRA [facility] #: [id number] JIMI: 04/20/18 14:[address]: Carlos Alberto Schultz DEPT: CYTOLOGY RECD BY: Anuj Davis ENTERED: 04/21/18 08:20 SP TYPE: CYSPIN FL OTHR DR: Dr. Yadira Alston MD Tissues: Urine Procedures: Pap Stain (control) Special Stain Group II Cytospin Fluid HEADER OPERATION: Not noted PRE-OP DIAGNOSIS: Hematuria TISSUE SUBMITTED: Urine for cytology DIAGNOSIS CYTOLOGY Urine for cytology (cytospin): Rare atypical urothelial cells present. Rare fungal organisms consistent with rhonda. AM:nuris 04/24/18 COMMENT The findings are nonspecific and could represent a variety of conditions including infection, urolithiasis, instrumentation and low grade urothelial neoplasm. Clinical correlation is necessary. CYTOLOGY STUDY Slides are reviewed. CYTOLOGY GROSS Received is 60 ml of clear yellow fluid labeled with the patient's name and and designated per the requisition as urine. Submitted for cytology preparation. / 04/21/18 TC:5 CPT: 65429
[2018-04-20 18:08] LABS: Cytology, Body Fluid / CSF SEE PATHOLOGY REPORT
== END ==
PROVIDERS: Family Provider Family Medicine; PCP Family Medicine; Referring Provider Urology; Visit Provider Urology
DX: R31.9 Hematuria, unspecified (principal)
CPT/HCPCS: 88108; 88313

== ENCOUNTER → 2018-06-06 14:51 | Outpatient (CLI) | payer MEDICARE, OTHER, SELFPAY ==
[2018-04-12 15:25] VITALS: BMI 26.6
--- NOTE | 2018-06-06 15:03 | CT_ITS ---
STUDY: CT ABDOMEN AND PELVIS WITH AND WITHOUT CONTRAST REASON FOR EXAM: Female, 68 years old. Left flank pain and abdominal pain. RADIATION DOSAGE (If Supplied By Facility): CTDIvol = ( 15.16 ) mGy, DLP = ( 900.91 ) mGycm TECHNIQUE: Transaxial images were obtained from the dome of the diaphragm to the symphysis pubis with oral contrast. 100 ml of Isovue 300 contrast was administered. Sagittal and coronal images were reconstructed. Individualized dose optimization techniques were used for this CT. COMPARISON: Comparison is made with prior study dated March 24, 2018. FINDINGS: Minimal increased markings at the lung bases suggestive of scarring. The visualized portions of the heart are within normal limits. Normal liver. There is a 5.4 mm cyst in the edge of the left lobe of the liver. The patient is status post cholecystectomy. Normal spleen. Normal pancreas. Normal bilateral adrenal glands. Normal right kidney. The previously seen right-sided hydronephrosis is not present at this time. Mild residual dilatation of the right ureter. Normal left kidney. There is a small hiatal hernia. Normal small intestine. There are multiple colonic diverticula consistent with diverticulosis. There is non-visualization of the appendix. There is diffuse atherosclerotic calcification of the abdominal aorta, without a demonstrated aneurysm. The abdominal aorta has a small caliber. Normal inferior vena cava. Normal retroperitoneum. Normal urinary bladder. There is absence of the uterus consistent with a prior hysterectomy. Normal abdominal wall. There are mild degenerative changes of the visualized lumbar spine. CT/CT Abd/Pelvis W/WO Contrast IMPRESSION: The right-sided hydronephrosis is clear. Mild residual dilatation of the right ureter. Electronically Signed: Vernon Skinner MD at 15:59 EST Tel [phone], Service support ,
[2018-06-06 15:30] LABS: CREATININE FINGERSTICK 1.2 mg/dL (0.55-1.02)
--- OUTSIDE RECORDS SUMMARY | 2018-08-08 21:01 | XMS RPT_ITS ---
:1950 Author Organization OHIP Support Name Relationship Address Phone PREETI SANCHEZ Unavailable CHANELLE + [place] [address] R Unavailable Unavailable Unavailable KRPREETI LOFTON Unavailable [address] + [place] [address] R Unavailable Unavailable Unavailable KRPREETI LOFTON Unavailable [address] + [place] [address] R Unavailable Unavailable Unavailable KRPREETI LOFTON Unavailable [address] + [place] [address] R Unavailable Unavailable Unavailable KRPREETI LOFTON Unavailable [address] + [place] [address] R Unavailable Unavailable Unavailable KRUDAPREETI Unavailable [address] + [place] [address] R Unavailable Unavailable Unavailable KRUDAPREETI Unavailable [address] + [place] [address] R Unavailable Unavailable Unavailable KRUDAPREETI Unavailable [address] + [place] [address] R Unavailable Unavailable Unavailable KRPREETI LOFTON Unavailable [address] + [place] [address] R Unavailable Unavailable Unavailable KRUDAPREETI Unavailable [address] + [place] [address] R Unavailable Unavailable Unavailable KRUDAPREETI Unavailable [address] + [place] [address] R Unavailable Unavailable Unavailable KRUDAPREETI Unavailable [address] + [place] [address] R Unavailable Unavailable Unavailable KRPREETI LOFTON Unavailable [address] + [place] [address] R Unavailable Unavailable Unavailable KRPREETI LOFTON Unavailable [address] + [place] [address] R Unavailable Unavailable Unavailable KRPREETI LOFTON Unavailable [address] + [facility] [place] [address] R Unavailable Unavailable Unavailable KRUDAPREETI Unavailable [address] + [facility]PL[facility] [place] [address] R Unavailable Unavailable Unavailable KRPREETI LOFTON Unavailable [address] + [facility] [place] [address] R Unavailable Unavailable Unavailable KRUDAPREETI Unavailable [address] + [facility] BY [facility] [address] R Unavailable Unavailable Unavailable KRPREETI LOFTON Unavailable [address] + [facility] [place] [address] R Unavailable Unavailable Unavailable KRPREETI LOFTON Unavailable [address] + [facility] [place] [address] R Unavailable Unavailable Unavailable PREETI SANCHEZ Unavailable [address] [phone] [facility] [place] [address] R Unavailable Unavailable Unavailable KRPREETI LOFTON Unavailable [address] [phone] [facility] BY [facility] [address] R Unavailable Unavailable Unavailable KRPREETI LOFTON Unavailable [address] [phone] [facility]ED BY [facility] [address] R Unavailable Unavailable Unavailable PREETI SANCHEZ Unavailable [address] [phone] RE[facility]ACED BY [facility] [address] R Unavailable Unavailable Unavailable PREETI SANCHEZ Unavailable [address] [phone] RE[facility]ACED BY [facility] [address] R Unavailable Unavailable Unavailable KRUDAPREETI Unavailable [address] [phone] RE[facility]ACED BY [facility] [address] R Unavailable Unavailable Unavailable KRPREETI LOFTON Unavailable [address] [phone] REPLACED BY [facility] [address] R Unavailable Unavailable Unavailable KRUDAPREETI Unavailable [address] [phone] REPLACED BY [facility] [address] R Unavailable Unavailable Unavailable KRPREETI LOFTON Unavailable [address] [phone] REPLACED BY [facility] [address] R Unavailable Unavailable Unavailable KRPREETI LOFTON Unavailable [address] [phone] [facility] [place] [address] R Unavailable Unavailable Unavailable KRUDA PREETI Unavailable [address] [phone] [facility] [place] [address] R Unavailable Unavailable Unavailable KRUDA PREETI Unavailable [address] [phone] RE[facility]ACED [facility] [address] R Unavailable Unavailable Unavailable KRUDA PREETI Unavailable [address] [phone] REPLACED BY [facility] [address] R Unavailable Unavailable Unavailable KRUDA PREETI Unavailable [address] [phone] RE[facility]ACED BY [facility] [address] R Unavailable Unavailable Unavailable KRUDA PREETI Unavailable [address] [phone] [facility] [place] [address] R Unavailable Unavailable Unavailable KRUDA PREETI Unavailable [address] [phone] [facility] [place] [address] R Unavailable Unavailable Unavailable KRUDAPREETI Unavailable [address] [phone] [facility] [place] [address] R Unavailable Unavailable Unavailable KRUDAPREETI Unavailable [address] [phone] [facility] [place] [address] R Unavailable Unavailable Unavailable KRUDA PREETI Unavailable [address] [phone] [facility] [place] [address] R Unavailable Unavailable Unavailable Care Team Providers Name Role Phone DAYANA COHEN Attending Unavailable DAYANA COHEN Attending Unavailable DAVID, TIM CHI Referring Unavailable Erna Wagner Attending Unavailable Erna Wagner Referring Unavailable Miedel, Yadira Primary Care Unavailable David, Tim Chi Primary Care Unavailable Ashelfah, Ghasem Admitting Unavailable Juliustsil, Neola Attending Unavailable Carol Choi D.C. Attending Unavailable David, Tim Chi Referring Unavailable David, Tim Chi Primary Care Unavailable Ethan Dickerson Attending Unavailable Ashelfah, Ghasem Referring Unavailable Merlyn Torres Attending Unavailable David, Tim Chi Referring Unavailable Merlyn Torres Attending Unavailable David, Tim Chi Referring Unavailable David, Tim Chi Primary Care Unavailable Merlyn Torres Attending Unavailable David, Tim Chi Primary Care Unavailable SevierMerlyn Referring Unavailable David, Tim Chi Attending Unavailable David, Tim Chi Primary Care Unavailable David, Tim Chi Attending Unavailable David, Tim Chi Referring Unavailable David, Tim Chi Primary Care Unavailable David, Tim Chi Attending Unavailable David, Tim Chi Primary Care Unavailable David Wicho Admitting Unavailable Ashelfah, Ghasem Attending Unavailable Miedel, Yadira Primary Care Unavailable Dayana Cohen Consulting Unavailable Carlos Alberto Schultz Consulting Unavailable Ashelfah, Ghasem Consulting Unavailable Troy Ochoa Attending Unavailable Miedel, Yadira Primary Care Unavailable Dossie, Carol Steel Attending [...] Attending Unavailable David, Tim Chi Referring Unavailable Dossie, Carol Steel Attending Unavailable [...] Primary Care Unavailable Ashelfah, Ghasem Admitting Unavailable David, Tim Chi Primary Care Unavailable Ashelfah, Ghasem Consulting Unavailable Koffi Chapa Attending Unavailable David, Tim Chi Attending Unavailable David, Tim Chi Primary Care Unavailable David, Tim Chi Attending Unavailable David, Tim Chi Primary Care Unavailable Gerardo Canas Attending Unavailable David, Tim Chi Referring Unavailable Miedel, Yadira Primary Care Unavailable Carlos Alberto Schultz Attending Unavailable AntoineCarlos Alberto Referring Unavailable Miedel, Yadira Primary Care Unavailable Gerardo Canas Attending Unavailable [facility], Yadira Primary Care Unavailable Gerardo Canas Consulting Unavailable Gerardo Canas Attending Unavailable Gerardo Canas Referring Unavailable Mied, Yadira Primary Care Unavailable David, Wicho Admitting Unavailable Ashelfah, Ghasem Attending Unavailable [facility], Yadira Primary Care Unavailable Tyshawn, Dayaan Consulting Unavailable Antoine, Anjum Consulting Unavailable Ashelfah, Ghasem Consulting Unavailable David, Wicho Admitting Unavailable Braydon Cline Attending Unavailable Mied, Yadira Primary Care Unavailable Tyshawn, Dayana Consulting Unavailable Antoine, Anujm Consulting Unavailable Kittoe, Braydon Consulting Unavailable David, Wicho Admitting Unavailable Braydon Cline Attending Unavailable Mied, Yadira Primary Care Unavailable Tyshawn, Dayana Consulting Unavailable Antoine, Anjum Consulting Unavailable Kittoe, Braydon Consulting Unavailable David, Wicho Admitting Unavailable David, Wicho Attending Unavailable Mied, Yadira Primary Care Unavailable David, Wicho Consulting Unavailable Miedel, Yadira Primary Care Unavailable David, Wicho Admitting Unavailable Tyshawn, Dayana Consulting Unavailable Ashelfah, Ghasem Attending Unavailable Antoine, Anjum Consulting Unavailable David, Tim Chi Attending Unavailable David, Tim Chi Referring Unavailable David, Tim Chi Primary Care Unavailable Carol Choi D.C. Attending Unavailable David, Tim Chi Referring Unavailable David, Tim Chi Primary Care Unavailable Ashelfah, Ghasem Admitting Unavailable Shekhar Whiteside Attending Unavailable David, Tim Chi Primary Care Unavailable Paintsil, Neola Consulting Unavailable Troy Ochoa Attending Unavailable Gerardo Canas Referring Unavailable Ethan Dickerson Attending Unavailable Ashelfah, Ghasem Referring Unavailable PROBLEMS PROBLEMS DATE TYPE CONDITION / CODE ATTENDING STATUS SOURCE 04/14/2018 Unknown R92.2 - Inconclusive Troy Ochoa mammogram / Community R92.2(ICD-10) Hospital Repository 04/14/2018 Unknown R93.89 - Abnormal Troy Ochoa findings on diagnostic Community imaging of other Hospital specified body Repository structures / R93.89(ICD-10) 04/12/2018 Unknown Z12.31 - Encounter for Troy Ochoa screening mammogram Community for malignant neoplasm Hospital of breast / Repository Z12.31(ICD-10) 04/04/2018 Unknown C34.90 - Malignant PraGerardo renae Active [facility] neoplasm of Community unspecified part of Hospital unspecified bronchus Repository or lung / C34.90(ICD-10) 04/04/2018 Unknown C34.32 - Malignant PraGerardo renae Active [facility] neoplasm of lower Community lobe, left bronchus or Hospital lung / C34.32(ICD-10) Repository 12/21/2017 Unknown N76.0 - Acute Melissa, Active [facility] vaginitis / Mer[facility] Community N76.0(ICD-10) Hospital Repository 10/28/2017 Unknown M54.14 - Dossie, Carol Active [facility] Radiculopathy, D.C. [facility] thoracic region / Hospital M54.14(ICD-10) Repository 10/28/2017 Unknown M99.03 - Segmental and Dossie, Carol Active [facility] somatic dysfunction of D.[facility] lumbar region / Hospital M99.03(ICD-10) Repository 10/28/2017 Unknown M99.02 - Segmental and Dossie, Carol Active [facility] somatic dysfunction of D.C. [facility] thoracic region / Hospital M99.02(ICD-10) Repository 09/12/2017 Unknown R07.9 - Chest pain, Tuan, Ethan Active [facility] unspecified / Community R07.9(ICD-10) Hospital Repository 10/12/2017 Unknown R94.31 - Abnormal Tuan, Ethan Active [facility] electrocardiogram Community [ECG] [EKG] / Hospital R94.31(ICD-10) Repository 08/10/2017 Unknown E55.9 - Vitamin D David, Tim Chi Active [facility] deficiency, Community unspecified / Hospital E55.9(ICD-10) Repository 08/10/2017 Unknown I10 - Essential David, Tim Chi Active [facility] (primary) hypertension Community / I10(ICD-10) Hospital Repository PROCEDURES PROCEDURES No Procedure Records FoundRESULTS RESULTS CREATININE FINGERSTICK Collected: 06/06/2018 Status: F Source: [place] 3:19 PM [facility] REPOSITORY TYPE CODE TESTS RESULT OUT OF REFERENCE UNITS RANGE LAB L9100.0210 0.55-1.02 mg/dL High CREATININE WB 1.2 Performed By: #### L9100.0200 #### [facility] Point of Care [address] [place] [address] CT ABD/PELVIS W/WO Observed: 06/06/2018 Status: F Source: [place] CONTRAST 3:03 PM [facility] REPOSITORY [facility] Imaging Services [address] [place] [address] CT Abd/Pelvis W/WO Contrast MR#: [id number] Acct: [id number] Name: KATHY OCASIO Rep #: [id number] : 1950 F 68 From: Vernon Skinner MD PCP: Yadira Alston MD Status: REG CLI Study: CT Abd/Pelvis W/WO Contrast Date of Exam: 06/06/18 Exam# [id number] Ordering Dr: Erna Wagner MOTHER'S HELPER-C STUDY: CT ABDOMEN AND PELVIS WITH AND WITHOUT CONTRAST REASON FOR EXAM: Female, 68 years old. Left flank pain and abdominal pain. RADIATION DOSAGE (If Supplied By Facility): CTDIvol = ( 15.16 ) mGy, DLP = ( 900.91 ) mGycm TECHNIQUE: Transaxial images were obtained from the dome of the diaphragm to the symphysis pubis with oral contrast. 100 ml of Isovue 300 contrast was administered. Sagittal and coronal images were reconstructed. Individualized dose optimization techniques were used for this CT. COMPARISON: Comparison is made with prior study dated March 24, 2018. FINDINGS: Minimal increased markings at the lung bases suggestive of scarring. The visualized portions of the heart are within normal limits. Normal liver. There is a 5.4 mm cyst in the edge of the left lobe of the liver. The patient is status post cholecystectomy. Normal spleen. Normal pancreas. Normal bilateral adrenal glands. Normal right kidney. The previously seen right-sided hydronephrosis is not present at this time. Mild residual dilatation of the right ureter. Normal left kidney. There is a small hiatal hernia. Normal small intestine. There are multiple colonic diverticula consistent with diverticulosis. There is non-visualization of the appendix. There is diffuse atherosclerotic calcification of the abdominal aorta, without a demonstrated aneurysm. The abdominal aorta has a small caliber. Normal inferior vena cava. Normal retroperitoneum. Normal urinary bladder. There is absence of the uterus consistent with a prior hysterectomy. Normal abdominal wall. There are mild degenerative changes of the visualized lumbar spine. CT/CT Abd/Pelvis W/WO Contrast IMPRESSION: The right-sided hydronephrosis is clear. Mild residual dilatation of the right ureter. Electronically Signed: Vernon Skinner MD at 15:59 EST Tel [phone], Service support , CC: Yadira Alston MD; Erna Wagner NP Investigation Specialist: Signed PROGRESS Observed: 04/20/2018 Status: COMPLETED Source: [place] 7:57 PM [facility] [place] REPOSITORY HNO ID: [id number] Author: Dayana Cohen Service: (none) Author Type: Physician Type: Progress Notes Filed: 04/21/2018 5:51 AM Note Text: FOLLOW UP VISIT - ENDOSCOPY NAME: Kathy Moeller [facility] NO.: [id number] DATE OF SERVICE: April 20, 2018 : [...] ON FLUID Observed: 04/20/2018 Status: F Source: [place] 2:00 PM [facility] REPOSITORY Patient: KATHY OCASIO : 1950 (68/F) Acct Num: [id number] Phys: Antoine CAROLINA,Anjum Unit Num: [id number] Loc: LABSPEC Specimen: [id number] Received: 04/21/18819 Spec [...] for cytology preparation. / 04/21/18 TC:5 CPT: 27943 CYTOLOGY STUDY Slides are reviewed. DIAGNOSIS CYTOLOGY Urine for cytology (cytospin): Rare atypical urothelial cells present. Rare fungal organisms consistent with rhonda. AM:rg 04/24/18 HEADER OPERATION: Not noted PRE-OP DIAGNOSIS: Hematuria TISSUE SUBMITTED: Urine for cytology Signed Earnest Fall 04/24/18 <signature on file> Performed By: #### PCYSPIN #### [facility] [address] [place], [address] CYTOLOGY, BODY FLUID / Collected: 04/20/2018 Status: F Source: [place] CSF 2:00 PM [facility] REPOSITORY Order Comment: Specimen Source: URINE TYPE CODE TESTS RESULT OUT OF RANGE REFERENCE UNITS LAB L350.1000 SEE Normal PATHOLOGY CYTOLOGY,BF REPORT /CSF Result Comment: Specimen submitted to Anatomical Pathology Department for testing. Performed By: #### L350.1000 #### [facility] [address] [place], [address] CNOV Observed: 04/20/2018 Status: COMPLETED Source: [place] 10:50 AM [facility] REPOSITORY Office Visit (GENSWS) KATHY OCASIO ([id number]) 1950 F Date Time Provider Department 04/20/18 10:50 AM DAYANA COHEN During your visit today, we recorded the following information about you: Pulse Blood pressure Weight 76/minute 152/70 65.3 kg Dayana Cohen MD 04/21/2018 5:51 AM Signed FOLLOW UP VISIT - ENDOSCOPY NAME: Kathy Ocasio CLINIC NO.: [id number] DATE OF SERVICE: April 20, 2018 : [...] Cohen MD Referring Provider: TIM ALEXIS CHI [[id number]] Allergies As of Date: 04/20/2018 Noted Allergy [...] 1 g vaginally 3 times a W* [id number]-CICLACCOPQ-XUBP VE* Apply 1 application to affect* LORAZEPAM [...] [E03.8] INVALID FOR* Unspecified Myalgia and Myositis [API6200] INVALID FOR* Mixed Hyperlipidemia [E78.2] INVALID FOR* [...] BREAST LIMITED Observed: 04/14/2018 Status: F Source: [facility] 1:18 PM [facility] REPOSITORY [facility] Imaging Services [address] [place] [address] Breast Limited Unilateral MR#: [id number] Acct: [id number] Name: KATHY OCASIO Rep #: [id number] : 1950 F 68 From: Vernon Skinner MD PCP: Yadira Alston MD Status: REG CLI Study: Breast Limited Unilateral Date of Exam: 04/14/18 Exam# [id number] Ordering Dr: Troy Ochoa MD STUDY: ULTRASOUND [...] Vernon Skinner MD at 14:54 EST Tel [phone], Service support , CC: Yadira Alston MD; Troy Ochoa MD Investigation Specialist: Signed DIAG MAMM W/CAD, Observed: 04/14/2018 Status: F Source: [place] BILAT 1:18 PM [facility] REPOSITORY [facility] Imaging Services [address] [place] [address] DIAG MAMM W/CAD, BILAT MR#: [id number] Acct: [id number] Name: KATHY OCASIO Rep #: [id number] : 1950 F 68 From: Vernon Skinner MD PCP: Yadira Alston MD Status: REG CLI Study: DIAG MAMM W/CAD, BILAT Date of Exam: 04/14/18 Exam# [id number] Ordering Dr: Troy Ochoa MD MAMMOGRAPHY - [...] Vernon Skinner MD at 15:04 EST Tel [phone], Service support , CC: Yadira Alston MD; Troy Ochoa MD Investigation Specialist: Signed SURGERY VISIT REPORT Observed: 04/12/2018 Status: F Source: [place] 6:03 PM [facility] REPOSITORY [facility] [address] [place] [address] [place] [address] OFFICE VISIT Date of Service: 04/12/18 MR#: [id number] Acct: [id number] Name: KATHY OCASIO Rep #: [id number] : 1950 Provider: Troy Ochoa MD Age/Sex: 68/F Location: [facility] Status: Signed Intake Vital Signs04/12/18 Body Mass Index (BMI) 26.6 04/12/18 Height 5 ft 1 in 04/12/18 Weight: 142 lb Intake Visit Reasons: L Breast Cyst Chief Complaint: F/u for lung cancer. Aviation Operations Specialist Required: No Is patient in pain?: No [...] recent chest CT scan performed at the [facility] on March 30, 2018 showed among other [...] VISIT REPORT Observed: 04/05/2018 Status: F Source: [place] 1:37 PM [facility] REPOSITORY [facility] [address] [place] [address] [place] [address] OFFICE VISIT Date of Service: 04/05/18 1310 MR#: [id number] Acct: [id number] Name: KATHY OCASIO Rep #: [id number] : 1950 From: Gerardo Canas MD Age/Sex: 68/F Location: D Status: Signed with Addenda ADDENDUM by Gerardo Canas MD on 04/05/18 at 1337 04/05/18 1337 <Electronically signed by Gerardo Canas MD> Date Gerardo Canas MD cc: Yadira Alston MD * Signed Subjective - Date of Service Date of Service:: 04/05/18 - Chief Complaint F/u for lung cancer. 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 Cystic/density R breast. Pt claims Dr. Ochao knows her and has had so many [...] Chronic Code Visit Office Visits / Consults: 37662 OV L3 Est 04/05/18 1335 <Electronically signed by Gerardo Canas MD> Date Gerardo Canas MD Cosigner Signature: Date (if applicable) CC: Yadira Alston MD PROGRESS Observed: 04/04/2018 Status: COMPLETED Source: [place] 9:11 PM [facility] [place] REPOSITORY HNO ID: [id number] Author: Dayana Cohen Service: (none) Author Type: Physician Type: Progress Notes Filed: 04/04/2018 9:16 PM Note Text: OPERATIVE NOTATION FOR [facility] SURGICAL PROCEDURE. March 27, 2018 Kathy Royrosa 1950 [id number] female PROCEDURE: EGD WITH BIOPSY - 07891-855 and COLONOSCOPY WITH BIOPSY - 55678-089 SURGEON: Mike Cohen M.D. FACS POCKETBOOK MAKER: None DEPT: WQ PROVIDER: [id number] Cohen MD POS: [id number] DIAGNOSIS: (K92.1) Hematochezia (primary encounter diagnosis) ASA [...] Clean Contaminated Operative note dictated in the [facility] dictation system. Dayana Cohen MD PROGRESS Observed: 04/04/2018 Status: COMPLETED Source: [place] 7:24 PM [facility] REPOSITORY HNO ID: [id number] Author: Dayana Cohen Service: (none) Author Type: Physician Type: Progress Notes Filed: 04/04/2018 7:31 PM Note Text: FOLLOW UP VISIT - ENDOSCOPY NAME: Kathy Ocasio [facility] NO.: [id number] DATE OF SERVICE: 04/04/2018 : 1950 REFERRING [...] MD CNOV Observed: 04/04/2018 Status: COMPLETED Source: [place] 1:40 PM [facility] [place] REPOSITORY Office Visit (GENSWS) PUSHPAKATHY MARQUEZ ([id number]) 1950 F Date Time Provider Department 04/04/18 1:40 PM DAYANA COHEN During your visit today, we recorded the following information about you: Pulse Blood pressure Weight Height 100/minute 116/64 64.1 kg 1.562 m Dayana Cohen MD 04/04/2018 7:31 PM Signed FOLLOW UP VISIT - ENDOSCOPY NAME: Kathy Ocasio CLINIC NO.: [id number] DATE OF SERVICE: 04/04/2018 : 1950 REFERRING [...] for Visit: Post Op [174] Cmt: f/u [facility] Primary Visit Diagnosis:Rectal bleeding [K62.5] Other Visit [...] 1 g vaginally 3 times a W* GQQSHVLRWK-WBKVADCJKR-CWBU VE* Apply 1 application to affect* PRAVASTATIN [...] 0.625 MG/GRAM VAGINAL CREAM >> Gerardo Hartley [facility] 04/04/2018 1:55 PM >> GERARDO HARTLEY LPN TueApr 04, 2018 1:55 PM Please d/c EMRABEGRXG-JBAVOQAPWP-LYGJ VERA-VITS A,D,AND E 20 %-3 % TOPICAL CREAM >> Gerardo Hartley [facility] 04/04/2018 1:55 PM >> GERARDO HARTLEY LPN TueApr 04, 2018 1:55 PM Please d/c LORAZEPAM 1 MG TABLET >> Gerardo Hartley [facility] 04/04/2018 1:59 PM >> GERARDO HARTLEY LPN TueApr 04, 2018 1:59 PM Please d/c CALCIUM CARBONATE 500 MG CALCIUM (1,250 MG) CHEWABLE TABLET >> Gerardo Hartley [facility] 04/04/2018 1:58 PM >> GERARDO HARTLEY LPN TueApr 04, 2018 1:58 PM Please d/c duplicate GEMFIBROZIL 600 MG TABLET >> Gerardo Hartley [facility] 04/04/2018 1:59 PM >> GERARDO HARTLEY LPN TueApr 04, 2018 1:59 PM Please d/c METHYLCELLULOSE (LAXATIVE) 500 MG TABLET >> Gerardo Hartley [facility] 04/04/2018 1:59 PM >> GERARDO HARTLEY LPN TueApr 04, 2018 1:59 PM Please d/c NASAL DILATORS STRIPS >> Gerardo Hartley [facility] 04/04/2018 1:59 PM >> GERARDO HARTLEY LPN TueApr 04, 2018 1:59 PM Please d/c Problem List As Of Date 04/04/2018 Noted Resolved 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] INVALID FOR* Other Specified Acquired Hypothyroidism [E03.8] INVALID FOR* Priority: A Unspecified Myalgia and Myositis [FEA7334] INVALID FOR* Priority: B Mixed Hyperlipidemia [E78.2] [...] WITH CONTRAST Observed: 03/30/2018 Status: F Source: [place] 12:53 PM [facility] REPOSITORY [facility] Imaging Services [address] [place] [address] Chest WITH Contrast MR#: [id number] Acct: [id number] Name: KATHY OCASIO Rep #: [id number] : 1950 F 68 From: Dayana Quinn MD PCP: Yadira Alston MD Status: REG CLI Study: Chest WITH Contrast Date of Exam: 03/30/18 Exam# [id number] Ordering Dr: Gerardo Canas MD STUDY: CT [...] CC: Yadira Alston MD; Gerardo Canas MD Investigation Specialist: Signed CBC W/DIFF, AUTOMATED Collected: 03/30/2018 Status: F Source: [place] 12:42 PM [facility] REPOSITORY Order Comment: Reason for Laboratory Test [...] Lymph 1.57 Performed By: #### L100.0100 #### [facility] [address] [place], [place], [address] COMPREHENSIVE METABOLIC Collected: 03/30/2018 Status: F Source: [facility] 12:42 PM [facility] REPOSITORY Order Comment: Reason for Laboratory Test [...] GAP 7 Performed By: #### L500.4050 #### [facility] [address] [place], [place], [address] DISCHARGE SUMMARY Observed: 03/28/2018 Status: F Source: [place] 11:32 AM [facility] REPOSITORY [facility] Medical Records Department [address] [place] [address] Discharge Summary 03/28/18 1122 MR#: [id number] Acct: [id number] Name: KATHY OCASIO Rep #: [id number] : 1950 68 From: Courtney Rodgers MD PCP: Yadira Alston MD Status: ADM IN Y Location: MS3 [id number] Discharge Date and Diagnosis - Problem List [...] 1 week. This note was generated with Daily Secret dictation software. It may contain incorrect words, [...] / 2751 2930 / 2930 188 / 1885 Microbiology Past 72 Hours 03/25/18 12:30 Enteric [...] applicable Code Visit Inpatient E AND M: 63230 Disch Hosp 03/28/18 1132 <Electronically signed by Courtney Rodgers MD> Date Courtney Rodgers MD Cosigner Signature (if applicable): Date CC: Courtney Rodgers; Yadira Alston MD; Dayana Cohen MD Signed DISCHARGE INSTRUCTION Observed: 03/28/2018 Status: F Source: [place] 9:04 AM [facility] REPOSITORY [facility] Medical Records Department [address] [place] [address] Instructions for Home/Discharge Instructions 03/28/18901 MR#: [id number] Acct: [id number] Name: KATHY OCASIO Rep #: [id number] : 1950 68 From: Courtney Rodgers MD PCP: Yadira Alsotn MD Status: ADM IN - Discharge Diagnoses [...] F Source: [place] PROFILE (BMP) 5:14 AM [facility] REPOSITORY TYPE CODE TESTS RESULT OUT OF [...] GAP 8 Performed By: #### L500.2500 #### [facility] [address] [place], [address] CONSULTATION Observed: 03/27/2018 Status: F Source: [place] 5:24 PM [facility] REPOSITORY [facility] Medical Records Department [address] [place] [address] Consultation 03/27/18 1721 MR#: [id number] Acct: [id number] Name: KATHY OCASIO Sajan Rep #: [id number] : 1950 68 From: Carlos Alberto Schultz MD PCP: Yadira Alston MD Status: ADM IN Y Location: [place] [address]-1 Reason for Consult Date of Consultation: 03/27/18 [...] hysterectomy Psychiatric History: No pertinent psych hx BUFFER CHROME History: No pertinent BUFFER CHROME history Smoking Status: Former smoker - *Family [...] she can follow-up in the office. 03/27/18 8524 <Electronically signed by Carlos Alberto Schultz MD> Date Carlos Alberto Schultz MD Cosigner Signature (if applicable): Date CC: Yadira Alston MD; Carlos Alberto Schultz MD; Dayana Cohen MD Signed OPERATIVE REPORT - Observed: 03/27/2018 Status: F Source: [place] [facility] 2:56 PM [facility] REPOSITORY [facility] Medical Records Department [address] [place] [address] Operative Report - Endoscopy MR#: [id number] Acct: [id number] Name: KATHY OCASIO Rep #: [id number] : 1950 68 From: Dayana Cohen MD [...] by the physician, the nurse and the awning craftsman in the procedure room. Mental Status Examination: [...] for review. Procedure Code(s): --- Professional --- 02261, Colonoscopy, flexible; with biopsy, single or multiple CPT copyright 2017 [employer]. All rights reserved. The codes documented in this report are preliminary and upon medical biller coder review may be revised to meet current compliance requirements. Dayana Cohen MD 03/27/2018 2:56:33 PM This report has been signed electronically. Number of Addenda: 0 Note Initiated On: 03/27/2018 2:32 PM 03/27/18 1456 Date Day[facility] Cohen MD [facility] Signature: Date (if indicated) CC: Courtney Rodgers; Yadira Alston MD; Carlos Alberto Schultz MD; Dayana Cohen MD Date Dictated: 03/27/18 1432 Date Transcribed: Investigation Specialist: RG Signed OPERATIVE REPORT - Observed: 03/27/2018 Status: F Source: [place] [facility] 2:54 PM [facility] REPOSITORY [facility] Medical Records Department [address] [place] [address] [place] [address] Operative Report - Endoscopy MR#: [id number] Acct: [id number] Name: KATHY OCASIO Rep #: [id number] : 1950 68 From: Dayana Cohen MD [...] by the physician, the nurse and the awning craftsman in the procedure room. Mental Status Examination: [...] present medications. Procedure Code(s): --- Professional --- 59756, Esophagogastroduodenoscopy, flexible, transoral; with biopsy, single or multiple CPT copyright 2017 [employer]. All rights reserved. The codes documented in this report are preliminary and upon medical biller coder review may be revised to meet current compliance requirements. Dayana Cohen MD 03/27/2018 2:54:10 PM This report has been signed electronically. Number of Addenda: 0 Note Initiated On: 03/27/2018 2:13 PM 03/27/18 1454 Date Dayana Cohen MD [facility] Signature: Date (if indicated) CC: Courtney Rodgers; Yadira Alston MD; Carlos Alberto Schultz MD; Dayana Cohen MD Date Dictated: 03/27/18 1413 Date Transcribed: Investigation Specialist: KWAME Signed EGD (PICK SITE) Observed: 03/27/2018 Status: F Source: [place] 2:00 PM [facility] REPOSITORY Patient: KATHY OCASIO : 1950 (68/F) Acct Num: [id number] Phys: Courtney Rodgers Unit Num: [id number] Loc: MS3 CF461-6 Specimen: [id number] Received: 03/27/18 - 826 Spec Type: EGD BIOPSY TISSUES 1 TISSUES: A. Jejunum, NOS B. Gastric mucous membrane C. Esophageal mucous membrane D. Esophageal mucous membrane E. Ileum, NOS F. COLON BIOPSY G. SPLENIC FLEXURE COMMENT The results of immunohistochemistry for Helicobacter pylori will be reported separately ([id number]). B. The majority of the specimen appears [...] one cassette. SJ:shaun 03/28/18 TC: 3 CPT: 31720 x7 HEADER OPERATION: Colonoscopy, EGD ([facility] [place] [place]) PRE-OP DIAGNOSIS: Epigastric symptoms, and left sided [...] G. Splenic flexure, biopsy: No pathologic diagnosis. AM:shaun 03/29/18 Signed Earnest Fall 03/29/18 <signature on file> Performed By: #### PEGD #### [facility] [address] [place], [address] BASIC METABOLIC Collected: 03/27/2018 Status: F Source: [place] PROFILE (BMP) 5:08 AM [facility] REPOSITORY TYPE CODE TESTS RESULT OUT OF [...] GAP 7 Performed By: #### L500.2500 #### [facility] [address] [place], [address] CBC-COMPLETE BLOOD CNT Collected: 03/27/2018 Status: F Source: [place] NO DIFF 5:08 AM [facility] REPOSITORY TYPE CODE TESTS RESULT OUT OF [...] MPV 9.9 Performed By: #### L100.0500 #### [facility] [address] [place], [address] CNOP Observed: 03/27/2018 Status: COMPLETED Source: [place] 12:00 AM [facility] REPOSITORY Operative Note (Enc) (GENSWS) Progress Notes: Dayana Cohen MD 04/04/2018 9:16 PM Signed OPERATIVE NOTATION FOR [facility] SURGICAL PROCEDURE. March 27, 2018 Kathy Moeller Ninfa 1950 [id number] female PROCEDURE: EGD WITH BIOPSY - 08682-139 and COLONOSCOPY WITH BIOPSY - 55333-877 SURGEON: Mike Cohen M.D. FACS POCKETBOOK MAKER: None DEPT: WQ PROVIDER: L63=TopdjpkDayana Cohen MD POS: [id number]=[id number] DIAGNOSIS: (K92.1) Hematochezia (primary encounter diagnosis) ASA [...] Clean Contaminated Operative note dictated in the [facility] dictation system. Dayana Cohen MD Encounter Status:Closed by DAYANA COHEN MD on 04/04/18 IMMUNOHISTOCHEMISTRY Observed: 03/27/2018 Status: F Source: [place] 12:00 AM [facility] REPOSITORY Patient: KATHY OCASIO : 1950 (68/F) Acct Num: [id number] Phys: Courtney Rodgers Unit Num: [id number] Loc: MS3 [id number] Specimen: [id number] Received: 03/29/18 0753 Spec Type: IMMUNO TISSUES 1 TISSUES: Gastric mucous membrane SPECIMEN INFORMATION: Tissue Source: Distal esophagus Clinical Info: Epigastric symptoms, and left sided colitis Specimen Number: [id number] CPT code: 29198 METHODOLOGY: Deparaffinized sections of prefer/formalin-fixed tissue or PAP/DQ stained slides are incubated with monoclonal/polyclonal antibodies/oligonucleotide probes. Localization is made via biotin free immunoperoxidase method. Appropriate controls are performed and reacted as expected. Results on target cell population are indicated in the following table: RESULTS: ANTIBODY / CLONE RESULT H Pylori (polyclonal) negative These tests were developed and their performance characteristics determined by [facility]. They may not have been cleared or approved by the U.S. Food and Drug Administration. The FDA has determined that such clearance or approval is not necessary. INTERPRETATION: Distal esophagus: Gastric mucosa fragment is negative for Helicobacter pylori organisms. AM:cc [facility] [address] [address] Signed Earnest [facility] 03/30/18 <signature on file> Performed By: #### PIMM #### [facility] [address] [place] [address]. [place], [address] CBC-COMPLETE BLOOD CNT Collected: 03/26/2018 Status: F Source: [place] NO DIFF 5:34 AM [facility] REPOSITORY TYPE CODE TESTS RESULT OUT OF [...] MPV 9.8 Performed By: #### L100.0500 #### [facility] [address] [place], [place], [address] BASIC METABOLIC Collected: 03/26/2018 Status: F Source: [place] PROFILE (BMP) 5:34 AM [facility] REPOSITORY TYPE CODE TESTS RESULT OUT OF [...] 10 Performed By: #### L500.2500, L501.5200 #### [facility] [address] [place], [address] MAGNESIUM Collected: 03/26/2018 Status: F Source: [place] 5:34 AM [facility] REPOSITORY TYPE CODE TESTS RESULT OUT OF RANGE REFERENCE UNITS LAB L501.5200 1.6-2.6 mg/dL Normal MG 2.2 Performed By: #### L500.2500, L501.5200 #### [facility] [address] [place], [address] STOOL Observed: 03/25/2018 Status: F Source: [place] LACTOFERRIN/WBC 12:30 PM [facility] REPOSITORY Stool Lacto/WBC Normal Reference Range = Negative Fecal WBC Lactoferrin Positive: Fecal WBC Lactoferrin present Performed By: #### M100.0605 #### [facility] [address] [place], [address] Observed: 03/25/2018 Status: F Source: [place] CDIFF (MOLECULAR) 12:30 PM [facility] REPOSITORY Is the patient receiving laxatives? N New/unexplained onset of 3 or more stools in past 24 hrs? Y Cdiff-Molecular C. Diff DNA Negative- No toxigenic C. Diff DNA Detected NAAT METHOD Testing was performed using nucleic acid amplification Performed By: #### M100.6796 #### [facility] [address] [place], [address] Observed: 03/25/2018 Status: F Source: [place] ENTERIC PATHOGEN 12:30 PM [facility] PANEL STOOL REPOSITORY EP PANEL STOOL Normal [...] Not Detected Performed By: #### M100.637 #### [facility] [address] [place], [address] BEDSIDE GLUCOSE Collected: 03/25/2018 Status: F Source: [place] 11:56 AM [facility] REPOSITORY TYPE CODE TESTS RESULT OUT OF RANGE REFERENCE UNITS LAB L501.080 70-110 mg/dL Normal BEDSIDE GLU 103 Result Comment: MANAGEMENT OF PATIENT CARE PER NURSING PROTOCOL Performed By: #### L501.080 #### [facility] Point of Care [address] [place] [address] CONSULTATION Observed: 03/25/2018 Status: F Source: [place] 9:13 AM [facility] REPOSITORY [facility] Medical Records Department [address] [place] [address] Consultation 03/25/18 0908 MR#: [id number] Acct: [id number] Name: KATHY OCASIO Rep #: [id number] : 1950 68 From: Dayana Cohen MD PCP: Yadira Alston MD Status: ADM IN Location: [address] Reason for Consult Date of Consultation: 03/25/18 [...] endoscopy and consents to the planned procedures. 03/25/18912 <Electronically signed by Dayana Cohen MD> Date Dayana Cohen MD Cosigner Signature (if applicable): Date CC: Yadira Alston MD; Carlos Alberto Schultz MD; Dayana Cohen MD Signed CBC W/DIFF, AUTOMATED Collected: 03/25/2018 Status: F Source: [place] 6:29 AM [facility] REPOSITORY TYPE CODE TESTS RESULT OUT OF [...] Lymph 2.02 Performed By: #### L100.0100 #### [facility] [address] [place], [address] BASIC METABOLIC Collected: 03/25/2018 Status: F Source: [place] PROFILE ([place]) 6:29 AM [facility] REPOSITORY TYPE CODE TESTS RESULT OUT OF [...] Performed By: #### L500.2500, L501.9520, L506.0400 #### [facility] [address] [place], [place], [address] THYROID STIM HORMONE Collected: 03/25/2018 Status: F Source: [place] (TSH) 6:29 AM [facility] REPOSITORY TYPE CODE TESTS RESULT OUT OF RANGE REFERENCE UNITS LAB L501.9520 0.358-3.74 uIU/mL Normal TSH 3.66 Performed By: #### L500.2500, L501.9520, L506.0400 #### [facility] [address] [place], [address] T4 FREE DIRECT Collected: 03/25/2018 Status: F Source: [place] 6:29 AM [facility] REPOSITORY TYPE CODE TESTS RESULT OUT OF RANGE REFERENCE UNITS LAB L506.0400 0.76-1.46 ng/dL Normal T4 FREE 1.06 DIRECT Performed By: #### L500.2500, L501.9520, L506.0400 #### [facility] [address] [place], [address] HEMOGLOBIN A1C Collected: 03/25/2018 Status: F Source: [place] 6:29 AM [facility] REPOSITORY TYPE CODE TESTS RESULT OUT OF RANGE REFERENCE UNITS LAB L501.9985 4.2-6.3 % Normal HGB A1C 6.0 Performed By: #### L501.9985 #### [facility] [address] [place], [address] HISTORY AND PHYSICAL Observed: 03/24/2018 Status: F Source: [place] EXAM 9:06 PM [facility] REPOSITORY [facility] Medical Records Department [address] [place] [address] History and Physical 03/24/182049 MR#: [id number] Acct: [id number] Name: KATHY OCASIO Rep #: [id number] : 1950 68 From: Wicho Hernandez MD PCP: Yadira Alston MD Status: ADM IN Y Location: [place] [address] Problem List (1) Left sided colitis Status: [...] Patient is being admitted on the regular [facility] floor. H AND H 14.4/43.4. Baseline [...] T4 ordered. 7. Mild hyperglycemia: Glucose in BMP is 188. Previous glucose in BMP were normal. A1c ordered for tomorrow a.m. 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 DVT prophylaxis: Pharmacological prophylaxis contraindicated because of acute lower GI bleed. Bilateral SCDs This note was generated with Daily Secret dictation software. Every effort was made to ensure accuracy, however computerized currency exchange specialist mistakes may persist. Code Visit Inpatient E AND M: 09824 Init Hosp L3 03/24/18 7193 <Electronically signed by Wicho Hernandez MD> Date Wicho Hernandez MD Cosigner Signature: Date (if applicable) CC: Yadira Alston MD; Wicho Hernandez MD Signed EMERGENCY DEPARTMENT Observed: 03/24/2018 Status: F Source: [place] SUMMARY 8:17 PM [facility] REPOSITORY [facility] Medical Records Department [address] [place] [address] Emergency Department Summary 03/24/18 1705 MR#: [id number] Acct: [id number] Name: KATHY OCASIO Rep #: [id number] : 1950 68 From: Sebastián Chase DO [...] ureteral calculus This note was generated with Home Leasingation software. It may contain incorrect words, spelling, and punctuation that were not noted in review of the chart prior to signing ED Disposition - Plan for ED Patient: Disposition: Acute Care Hospital [facility] Chief Complaint: GI Bleed Diagnosis: Lower gastrointestinal bleeding, Colitis, Right distal ureteral calculus Referrals: Yadira Alston MD [Primary Care Provider] - What to do if you have Problems For any increased pain, shortness of breath, bleeding, nausea or vomiting, chest pain, or any unexpected problems, contact your Primary Care Provider. Call [facility] ([phone]) or report to the closest Emergency Room. Call 911 if necessary. 03/24/18 2017 <Electronically signed by Sebastián Chase DO> Date Sebastián Chase DO Cosigner Signature (If Indicated): Date CC: Yadira Alston MD URINALYSIS, COMPLETE Collected: 03/24/2018 Status: F Source: [place] 5:54 PM [facility] REPOSITORY Order Comment: Order Date: 03/24/18 How [...] URINE SEEN Performed By: #### L400.0001 #### [facility] [address] [place], [address] ABDOMEN/PELVIS WITH Observed: 03/24/2018 Status: F Source: [place] CONTRAST 5:05 PM [facility] REPOSITORY [facility] Imaging Services [address] [place] [address] Abdomen/Pelvis WITH Contrast MR#: [id number] Acct: [id number] Name: KATHY OCASIO Sajan Rep #: [id number] : 1950 F 68 From: Elizabet Quinones MD PCP: Yadira Alston MD Status: REG ER Study: Abdomen/Pelvis WITH Contrast Date of Exam: 03/24/18 Exam# [id number] Ordering Dr: Sebastián Chase DO STUDY: CT [...] pancreas. Normal bilateral adrenal glands. There is tuet-vv-xbmjscrg right hydronephrosis and right hydroureter which is [...] CC: Sebastián Chase DO; Yadira Alston MD Investigation Specialist: Signed CBC W/DIFF, AUTOMATED Collected: 03/24/2018 Status: F Source: [place] 5:00 PM [facility] REPOSITORY TYPE CODE TESTS RESULT OUT OF [...] Lymph 3.79 Performed By: #### L100.0100 #### [facility] [address] [place], [address] Observed: 03/24/2018 Status: F Source: [place] STOOL OCCULT BLOOD 5:00 PM [facility] IFOB REPOSITORY Order Date: 03/24/18 Has pt arrived? Y STOB iFOB Normal Reference Range = Negative CRITICAL VALUE VERIFIED. CALLED TO RAND SALMERON 03/24/18 1740 Michele Kiran. RESULTS READ BACK BY RAND . Occult Blood Positive ORGANISM 1: OCCULT BLOOD POSITIVE Performed By: #### M100.7900 #### [facility] [address] [place], [address] COMPREHENSIVE METABOLIC Collected: 03/24/2018 Status: F Source: [place] [facility] 5:00 PM [facility] REPOSITORY TYPE CODE TESTS RESULT OUT OF [...] 10 Performed By: #### L500.4050, L501.2450 #### [facility] [address] [place], [address] LIPASE Collected: 03/24/2018 Status: F Source: [place] 5:00 PM [facility] REPOSITORY TYPE CODE TESTS RESULT OUT OF RANGE REFERENCE UNITS LAB L501.2450 73-393 U/L Normal LIPASE 170 Performed By: #### L500.4050, L501.2450 #### [facility] [address] [place], [address] ABDOMEN/PELVIS WITH Observed: 01/03/2018 Status: F Source: [place] CONTRAST 6:13 PM [facility] REPOSITORY [facility] Imaging Services [address] [place] [address] Abdomen/Pelvis WITH Contrast MR#: [id number] Acct: [id number] Name: KATHY OCASIO Rep #: [id number] : 1950 F 67 From: Cayden Brown MD PCP: Tim Alexis MD, Chi Status: REG CLI Study: Abdomen/Pelvis WITH Contrast Date of Exam: 01/03/18 Exam# [id number] Ordering Dr: Tim Alexis MD STUDY: CT [...] Service support , CC: Tim Alexis MD Investigation Specialist: Signed Observed: 01/03/2018 Status: F Source: [place] CULTURE, URINE 5:00 PM [facility] REPOSITORY Urine Culture ORGANISM 1: Mixed Gram Positive Organisms [place] Count 1000-10,000 Performed By: #### M100.0650 #### [facility] [address] [place], [address] CBC W/DIFF, AUTOMATED Collected: 01/03/2018 Status: F Source: [place] 4:45 PM [facility] REPOSITORY TYPE CODE TESTS RESULT OUT OF [...] Lymph 2.66 Performed By: #### L100.0100 #### [facility] [address] [place], [address] COMPREHENSIVE METABOLIC Collected: 01/03/2018 Status: F Source: [place] 4:45 PM [facility] REPOSITORY TYPE CODE TESTS RESULT OUT OF [...] GAP 12 Performed By: #### L500.4050 #### [facility] [address] [place], [place], [address] Observed: 12/20/2017 Status: F Source: [place] CULTURE, DEEP WOUND 6:18 PM [facility] REPOSITORY Gram Stain Gram Stain No Gram negative diplococci No Yeast Like Organisms No organisms seen Wound Culture No growth aerobically. Cult, Anaerobic Studies have confirmed that Anaerobic Gram Positive Cocci are routinely susceptible to: Penicillin/Ampicillin, Ampicillin/Sulbactam, Piperacillin/Tazobactam, Cefoxatin, Ertapenem, Imipenem, Meropenem and Metronidazole and vary in resistance to: Clindamycin and Moxifloxacin. ORGANISM 1: Anaerobic cocci Performed By: #### M100.1500 #### [facility] [address] [place], [address] QUALITY CONTROL CLERK OFFICE VISIT Observed: 12/20/2017 Status: F Source: [place] REPORT 2:42 PM [facility] REPOSITORY [facility] [address] [place] [address] OFFICE VISIT Date of Service: 12/20/17 MR#: [id number] Acct: [id number] Name: KATHY OCASIO Rep #: [id number] : 1950 Provider: MARCO ANTONIO Torres Age/Sex: 67/F [place] [facility]: Signed Intake Vital Signs12/20/17 Height 5 [...] CEBALLOS Cosigner Signature: Date (if applicable) CC: QUALITY CONTROL CLERK OFFICE VISIT Observed: 12/13/2017 Status: F Source: [place] REPORT 2:23 PM [facility] [address] [place] [address] OFFICE VISIT Date of Service: 12/13/17 MR#: [id number] Acct: [id number] Name: KATHY OCASIO Sajan Rep #: [id number] : 1950 Provider: MARCO ANTONIO Torres Age/Sex: 67/F [place] [facility]: Signed Intake Vital Signs12/13/17 Height 5 ft 1 in 12/13/17 Weight: 143 lb 2 oz 12/13/17 Body Mass Index (BMI) 27.0 12/13/17 Blood Pressure 120/68 Intake Visit Reasons: VAGINAL SORE Aviation Operations Specialist Required: No Is patient in pain?: No [...] <Electronically signed by Merlyn CEBALLOS> Date Merlyn GRECOC Cosigner Signature: Date (if applicable) CC: CHIROPRACTIC REPORT Observed: 10/27/2017 Status: F Source: [place] 2:13 PM [facility] [address] [place] [address] OFFICE VISIT Date of Service: 10/27/17 MR#: [id number] Acct: [id number] Name: KATHY OCASIO Rep #: [id number] : 1950 Provider: Carol Cisneros D.C. Age/Sex: 67/F Location: [facility] Status: Signed Intake Vital Signs10/27/17 Height 5 [...] PRN PRN 08/17/17 [History Confirmed 08/17/17] [facility] Medical History IBS (irritable bowel syndrome) (Acute) [...] Additional Codes Procedures - Traction, Mechanical: Yes (49112) Procedures - Manipulation: 1-2 regions (42678) 10/27/17 1413 <Electronically signed by Carol Cisneros D.C.> Date Carol Cisneros D.C. Cosigner Signature: Date (if applicable) CC: CHIROPRACTIC REPORT Observed: 10/13/2017 Status: F Source: [place] 3:45 PM [facility] [address] [place], [place] [address] OFFICE VISIT Date of Service: 10/13/17 MR#: [id number] Acct: [id number] Name: KATHY OCASIO Sajan Rep #: [id number] : 1950 Provider: Carol Cisneros D.C. Age/Sex: 67/F Location: [facility] Status: Signed Intake Vital Signs10/13/17 Height 5 [...] Additional Codes Procedures - Traction, Mechanical: Yes (10853) Procedures - Manipulation: 1-2 regions (09509) 10/13/17 1545 <Electronically signed by Carol Cisneros D.C.> Date Carol Cisneros D.C. Cosigner Signature: Date (if applicable) CC: CHIROPRACTIC REPORT Observed: 10/03/2017 Status: F Source: [place] 8:43 AM [facility] [address] [place] [address] OFFICE VISIT Date of Service: 09/29/17 MR#: [id number] Acct: [id number] Name: KATHY OCASIO Rep #: [id number] : 1950 Provider: Craol Cisneros D.C. Age/Sex: 67/F Location: [facility] Status: Signed Intake Vital Signs09/29/17 Height 5 [...] PRN PRN 08/17/17 [History Confirmed 08/17/17] [facility] Medical History IBS (irritable bowel syndrome) (Acute) [...] Additional Codes Procedures - Traction, Mechanical: Yes (62790) Procedures - Manipulation: 1-2 regions (86578) 10/03/17 0843 <Electronically signed by Carol Cisneros D.C.> Date Carol Richterign Signature: Date (if applicable) CC: CHIROPRACTIC REPORT Observed: 09/26/2017 Status: F Source: [place] 9:21 AM [facility] [address] [place] [address] OFFICE VISIT Date of Service: 09/26/17 MR#: [id number] Acct: [id number] Name: KATHY OCASIO Rep #: [id number] : 1950 Provider: Carol Cisneros D.C. Age/Sex: 67/F Location: [facility] Status: Signed Intake Vital Signs09/26/17 Height 5 [...] PRN PRN 08/17/17 [History Confirmed 08/17/17] [facility] Medical History IBS (irritable bowel syndrome) (Acute) [...] Additional Codes Procedures - Manipulation: 1-2 regions (12254) 09/26/17 0921 <Electronically signed by Carol Cisneros D.C.> Date Carol Cisneros D.C. Cosigner Signature: Date (if applicable) CC: CHIROPRACTIC REPORT Observed: 09/13/2017 Status: F Source: [place] 2:02 PM [facility] [address] [place] [address] OFFICE VISIT Date of Service: 09/12/17 MR#: [id number] Acct: [id number] Name: KATHY OCASIO Rep #: [id number] : 1950 Provider: Carol Cisneros D.C. Age/Sex: 67/F Location: [facility] Status: Signed Intake Vital Signs09/12/17 Height 5 [...] Additional Codes Procedures - Traction, Mechanical: Yes (72613) Procedures - Manipulation: 1-2 regions (26982) 09/13/17 1402 <Electronically signed by Carol Cisneros D.C.> Date Carol Cisneros D.C. Cosigner Signature: Date (if applicable) CC: CHIROPRACTIC REPORT Observed: 09/12/2017 Status: F Source: [place] 10:43 AM [facility] [address] [place] [address] OFFICE VISIT Date of Service: 09/08/17 MR#: [id number] Acct: [id number] Name: KATHY OCASIO Sajan Rep #: [id number] : 1950 Provider: Carol Cisneros D.C. Age/Sex: 67/F Location: [facility] Status: Signed Intake Vital Signs09/08/17 Height 5 [...] PRN PRN 08/17/17 [History Confirmed 08/17/17] [facility] Medical History IBS (irritable bowel syndrome) (Acute) [...] Additional Codes Procedures - Traction, Mechanical: Yes (47651) Procedures - Manipulation: 1-2 regions (44664) 09/12/17 1043 <Electronically signed by Carol Cisneros D.C.> Date Carol Cisneros D.C. Cosigner Signature: Date (if applicable) CC: CHIROPRACTIC REPORT Observed: 09/07/2017 Status: F Source: [place] 10:40 AM [facility] [address] [place] [address] OFFICE VISIT Date of Service: 09/07/17 MR#: [id number] Acct: [id number] Name: NINFATHIERRYKATHY R Rep #: [id number] : 1950 Provider: Carol Cisneros D.C. Age/Sex: 67/F Location: [facility] Status: Signed Intake Vital Signs09/07/17 Height 5 [...] PRN PRN 08/17/17 [History Confirmed 08/17/17] [facility] Medical History IBS (irritable bowel syndrome) (Acute) [...] Additional Codes Procedures - Manipulation: 1-2 regions (36318) 09/07/17 1040 <Electronically signed by Carol Cisneros D.C.> Date Carol Cisneros D.C. Cosigner Signature: Date (if applicable) CC: CHIROPRACTIC REPORT Observed: 09/01/2017 Status: F Source: [place] 9:26 AM [facility] [address] [place] [address] OFFICE VISIT Date of Service: 09/01/17 MR#: [id number] Acct: [id number] Name: KATHY OCASIO Rep #: [id number] : 1950 Provider: Carol Dossi, D.C. Age/Sex: 67/F Location: [facility] Status: Signed Intake Vital Signs09/01/17 Height 5 [...] Additional Codes Procedures - Manipulation: 1-2 regions (65821) 09/01/17 0926 <Electronically signed by Carol Cisneros D.C.> Date Carol Richterigngal Signature: Date (if applicable) CC: CHIROPRACTIC REPORT Observed: 08/30/2017 Status: F Source: [place] 2:17 PM [facility] [address] [place] [address] OFFICE VISIT Date of Service: 08/30/17 MR#: [id number] Acct: [id number] Name: KATHY OCASIO Rep #: [id number] : 1950 Provider: Carol Cisneros D.C. Age/Sex: 67/F Location: [facility] Status: Signed Intake Vital Signs08/30/17 Height 5 [...] PRN PRN 08/17/17 [History Confirmed 08/17/17] [facility] Medical History IBS (irritable bowel syndrome) (Acute) [...] Additional Codes Procedures - Manipulation: 1-2 regions (88036) 08/30/17 1417 <Electronically signed by Carol Cisneros D.C.> Date Carol Cisneros D.C. Cosigner Signature: Date (if applicable) CC: CHIROPRACTIC REPORT Observed: 08/30/2017 Status: F Source: [place] 8:42 AM [facility] [address] [place] [address] OFFICE VISIT Date of Service: 08/29/17 MR#: [id number] Acct: [id number] Name: KATHY OCASIO Rep #: [id number] : 1950 Provider: Carol Cisneros D.C. Age/Sex: 67/F Location: [facility] Status: Signed Intake Vital Signs08/29/17 Height 5 [...] Additional Codes Procedures - Manipulation: 1-2 regions (33674) 08/30/17 0842 <Electronically signed by Carol Cisneros D.C.> Date Carol Cisneros D.C. Cosigner Signature: Date (if applicable) CC: 12 LEAD ELECTROCARDIOGRAM Observed: 08/26/2017 Status: F Source: [place] 12:50 PM [facility] REPOSITORY [facility] Cardiovascular Services [address] [place], [place] [address] [address] 12 Lead EKG 08/18/17 0534 MR#: [id number] Acct: [id number] Name: KATHY OCASIO Rep #: [id number] : 1950 67 From: Ethan Dickerson MD Attending Dr: Selena Persaud MD Status: DIS JUAN Ordering Dr: Kyra Callejas MD Date: 08/18/17 Location: [facility] Sex: F C Admitted: 08/17/17 Test Reason [...] COMPARISON REQUIRED, DATA IS UNCONFIRMED Confirmed by TUAN CAROLINA, ETHAN ([id number]), technical writer and editor NICANOR SANCHEZ (56) on 08/26/2017 12:50:08 PM Referred By: KAMAR Confirmed By:ETHAN DICKERSON MD 08/26/17 7811 Date Ethan Dickerson MD CC: Selena Persaud MD; Kyra Callejas MD; Tim Alexis MD Signed CHIROPRACTIC REPORT Observed: 08/25/2017 Status: F Source: [place] 3:39 PM [facility] [address] [place] [address] OFFICE VISIT Date of Service: 08/23/17 MR#: [id number] Acct: [id number] Name: KATHY OCASIO Rep #: [id number] : 1950 Provider: Carol Cisneros D.C. Age/Sex: 67/F Location: [facility] Status: Signed Intake Vital Signs08/23/17 Height 5 [...] Additional Codes Procedures - Manipulation: 1-2 regions (68351) 08/25/17 1539 <Electronically signed by Carol Cisneros D.C.> Date Carol Cisneros D.C. Cosigner Signature: Date (if applicable) CC: 12 LEAD ELECTROCARDIOGRAM Observed: 08/23/2017 Status: F Source: [place] 9:00 AM [facility] Cardiovascular Services [address] [place] [address] 12 Lead EKG 08/17/17 1824 MR#: [id number] Acct: [id number] Name: KATHY OCASIO Rep #: [id number] : 1950 67 From: Ethan Dickerson MD Attending Dr: Selena Persaud MD Status: DIS UJAN Ordering Dr: Josué Ramon DO Date: 08/17/17 Location: [facility] Sex: F C Admitted: 08/17/17 Test Reason [...] T wave abnormality Abnormal ECG Confirmed by TUAN CAROLINA, ETHAN ([id number]), technical writer and editor NICANOR SANCHEZ (56) on 08/23/2017 9:00:01 AM Referred By: DR RAMON Confirmed By:ETHAN DICKERSON MD 08/23/17 0900 Date Ethan Dickerson MD CC: Selena Persaud MD; Josué Ramon DO; Tim Alexis MD Signed DISCHARGE SUMMARY Observed: 08/18/2017 Status: F Source: [place] 2:37 PM [facility] REPOSITORY [facility] Medical Records Department [address] [place] [address] Discharge Summary 08/18/17 1336 MR#: [id number] Acct: [id number] Name: KATHY OCASIO Rep #: [id number] : 1950 67 From: Shekhar JIMENEZ PCP: David CAROLINA,Tim Ag Status: DIS JUAN Y Location: [place] [address] ADDENDUM by Selena Persaud MD on 08/18/17 at 1437 Code Visit OBSV E AND M: 32228 Observation care discharge 08/18/17 1437 <Electronically signed [...] DISCHARGE INSTRUCTION Observed: 08/18/2017 Status: F Source: [place] 1:35 PM [facility] REPOSITORY [facility] Medical Records Department [address] [place] [address] Instructions for Home/Discharge Instructions 08/18/17 1334 MR#: [id number] Acct: [id number] Name: KATHY OCASIO Rep #: [id number] : 1950 67 From: Shekhar JIMENEZ PCP: Tim Alexis MD, Chi Status: ADM JUAN - Discharge Diagnoses Current [...] STRESS REPORT Observed: 08/18/2017 Status: F Source: [place] 12:10 PM [facility] REPOSITORY [facility] Cardiovascular Services [address] [place] [address] MR#: [id number] Acct: [id number] Name: KATHY OCASIO Rep #: [id number] : 1950 67 From: Ethan Dickerson MD Primary Care: Tim Alexis MD, Chi Status: ADM JUAN Ordering Dr: [...] MD Date Dictated: 08/18/171206 Date Transcribed: 08/18/171206 Investigation Specialist: CO Signed TROPONIN-I Collected: 08/18/2017 Status: F Source: [place] 9:05 AM [facility] REPOSITORY Order Comment: PT IN STRESS TEST FWC. WHEN PT RETURNS TO FLOOR. 'TROP' Serial specimen #1, #2, #3, or #4: 4 TYPE CODE TESTS RESULT OUT OF RANGE REFERENCE UNITS LAB L501.4010 <0.06 ng/mL Normal < 0.02 TROPONIN-I Result Comment: TROPONIN-I EXPECTED VALUES <0.05 NEGATIVE 0.06 - 0.59 AT RISK OF AR > OR = 0.60 SUGGEST AR Performed By: #### L501.4010 #### [facility] [place], [address] CBC W/DIFF, AUTOMATED Collected: 08/18/2017 Status: F Source: [place] 2:15 AM [facility] REPOSITORY TYPE CODE TESTS RESULT OUT OF [...] Lymph 2.39 Performed By: #### L100.0100 #### [facility] [address] [place], [place], [address] PROTHROMBIN TIME W/INR Collected: 08/18/2017 Status: F Source: [place] 2:15 AM [facility] REPOSITORY TYPE CODE TESTS RESULT OUT OF RANGE REFERENCE UNITS LAB L300.4150 11.7-14.9 SECONDS Normal PROTIME 13.4 LAB L300.4200 Normal INR 1.0 Performed By: #### L300.3900, L300.4310 #### [facility] [address] [place], [place], [address] PARTIAL THROMBOPLAST Collected: 08/18/2017 Status: F Source: [place] TIME 2:15 AM [facility] REPOSITORY TYPE CODE TESTS RESULT OUT OF RANGE REFERENCE UNITS LAB L300.4310 24.1-36.2 Seconds Normal PTT 35.4 Performed By: #### L300.3900, L300.4310 #### [facility] [address] [place], [place], [address] BASIC METABOLIC Collected: 08/18/2017 Status: F Source: [place] PROFILE (BMP) 2:15 AM [facility] REPOSITORY Order Comment: 'TROP' Serial specimen #1, [...] Performed By: #### L500.2500, L500.4100, L501.4010 #### [facility] [address] [place], [place], [address] LIPID PROFILE Collected: 08/18/2017 Status: F Source: [place] 2:15 AM [facility] REPOSITORY Order Comment: 'TROP' Serial specimen #1, [...] Performed By: #### L500.2500, L500.4100, L501.4010 #### [facility] [address] [place], [place], [address] TROPONIN-I Collected: 08/18/2017 Status: F Source: [place] 2:15 AM [facility] REPOSITORY Order Comment: 'TROP' Serial specimen #1, #2, #3, or #4: 3 TYPE CODE TESTS RESULT OUT OF RANGE REFERENCE UNITS LAB L501.4010 <0.06 ng/mL Normal < 0.02 TROPONIN-I Result Comment: TROPONIN-I EXPECTED VALUES <0.05 NEGATIVE 0.06 - 0.59 AT RISK OF AR > OR = 0.60 SUGGEST AR Performed By: #### L500.2500, L500.4100, L501.4010 #### [facility] [address] [place], [place], [address] TROPONIN-I Collected: 08/17/2017 Status: F Source: [place] 10:32 PM [facility] REPOSITORY Order Comment: 'TROP' Serial specimen #1, #2, #3, or #4: 2 TYPE CODE TESTS RESULT OUT OF RANGE REFERENCE UNITS LAB L501.4010 <0.06 ng/mL Normal < 0.02 TROPONIN-I Result Comment: TROPONIN-I EXPECTED VALUES <0.05 NEGATIVE 0.06 - 0.59 AT RISK OF AR > OR = 0.60 SUGGEST AR Performed By: #### L501.4010 #### [facility] [address] [place], [address] HISTORY AND PHYSICAL Observed: 08/17/2017 Status: F Source: [place] EXAM 9:10 PM [facility] REPOSITORY [facility] Medical Records Department [address] [place] [address] History and Physical 08/17/172053 MR#: [id number] Acct: [id number] Name: KATHY OCASIO Rep #: [id number] : 1950 67 From: Kyra Callejas MD PCP: David CAROLINA,Tim Ag Status: ADM JUAN Y Location: [place] [address] Problem List (1) Atypical chest pain Status: [...] given risk factors.heart score, lexiscan in AM 08/17/172109 <Electronically signed by Kyra Callejas MD> Date Kyra Callejas MD Cosigner Signature: Date (if applicable) CC: Kyra Callejas MD; Tim Alexis MD Signed EMERGENCY DEPARTMENT Observed: 08/17/2017 Status: F Source: [place] SUMMARY 8:25 PM [facility] REPOSITORY [facility] Medical Records Department [address] [place] [address] Emergency Department Summary 08/17/172020 MR#: [id number] Acct: [id number] Name: KATHY OCASIO Rep #: [id number] : 1950 67 From: Josué Ramon DO PCP: David CAROLINA,Tim Ag Status: REG ER - ER Visit Summary [...] or vomiting. Patient denies diaphoresis.] Physical Examination: [HEENT-PERRLA, EOMI. Cranial nerves II through XII grossly [...] coronary syndrome] This note was generated with [employer] dictation software. It may contain incorrect words, [...] problems, contact your Primary Care Provider. Call [facility] ([phone]) or report to the closest Emergency Room. Call 911 if necessary. 08/17/172024 <Electronically signed by Josué Ramon DO> Date Josué Ramon DO Cosigner Signature (If Indicated): Date CC: Tim Alexis MD CTA CHEST W/WO Observed: 08/17/2017 Status: F Source: [place] CONTRAST 7:03 PM [facility] REPOSITORY [facility] Imaging Services [address] [place] [address] CTA Chest W/WO Contrast MR#: [id number] Acct: [id number] Name: KATHY OCASIO Rep #: [id number] : 1950 F 67 From: Birgit Ridley MD PCP: Tim Alexis MD, Chi Status: REG ER Study: CTA Chest W/WO Contrast Date of Exam: 08/17/17 Exam# [id number] Ordering Dr: Josué Ramon DO STUDY: CTA [...] CC: Josué Ramon DO; Tim Alexis MD Investigation Specialist: Signed CHEST 1 VIEW Observed: 08/17/2017 Status: F Source: [place] (PORTABLE) 6:33 PM [facility] REPOSITORY [facility] Imaging Services [address] [place] [address] Chest 1 View (Portable) MR#: [id number] Acct: [id number] Name: KATHY OCASIO Rep #: [id number] : 1950 F 67 From: Corey Mai MD PCP: Tim Alexis MD, Chi Status: REG ER Study: Chest 1 View (Portable) Date of Exam: 08/17/17 Exam# [id number] Ordering Dr: Josué Ramon DO STUDY: X-RAY CHEST REASON FOR EXAM: Female, 67 years old. Chest pain. TECHNIQUE: Single AP portable upright view of the chest. COMPARISON: PA and lateral chest x-ray December 09, 2016; CT chest/thorax March 30, 2017. FINDINGS: The lungs are clear and expanded. There is no demonstrated pleural abnormality. Normal size heart. Normal mediastinum and thomas. Normal visualized pulmonary arteries. There is stable [...] CC: Josué Ramon DO; Tim Alexis MD Investigation Specialist: Signed CBC W/DIFF, AUTOMATED Collected: 08/17/2017 Status: F Source: [place] 6:25 PM [facility] REPOSITORY TYPE CODE TESTS RESULT OUT OF [...] Lymph 3.29 Performed By: #### L100.0100 #### [facility] [address] [place], [place], [address] D-DIMER QUANTITATIVE Collected: 08/17/2017 Status: F Source: [place] (DVT/PE) 6:25 PM [facility] REPOSITORY TYPE CODE TESTS RESULT OUT OF RANGE REFERENCE UNITS LAB L300.8000 0.27-0.49 FEU/ug/m High alert D-DIMER 0.69 QUANT Result Comment: D-Dimer ELEVATED (>0.49): Additional studies and clinical assessments are indicated to conclude diagnosis of: Deep Vein Thrombosis (DVT) or Pulmonary Embolism (PE) CRITICAL VALUE VERIFIED. [facility] Luc Saaved[place]. RESULTS READ BACK BY SAME . Performed By: #### L300.8000 #### [facility] [address] [place], [place], [address] BASIC METABOLIC Collected: 08/17/2017 Status: F Source: [place] PROFILE (BMP) 6:25 PM [facility] REPOSITORY Order Comment: 'TROP' Serial specimen #1, [...] Performed By: #### L500.2500, L501.2450, L501.4010 #### [facility] [address] [place], [place], [address] LIPASE Collected: 08/17/2017 Status: F Source: [place] 6:25 PM [facility] REPOSITORY Order Comment: 'TROP' Serial specimen #1, #2, #3, or #4: 1 TYPE CODE TESTS RESULT OUT OF RANGE REFERENCE UNITS LAB L501.2450 73-393 U/L Normal LIPASE 191 Performed By: #### L500.2500, L501.2450, L501.4010 #### [facility] [address] [place], [place], [address] TROPONIN-I Collected: 08/17/2017 Status: F Source: [place] 6:25 PM [facility] REPOSITORY Order Comment: 'TROP' Serial specimen #1, #2, #3, or #4: 1 TYPE CODE TESTS RESULT OUT OF RANGE REFERENCE UNITS LAB L501.4010 <0.06 ng/mL Normal < 0.02 TROPONIN-I Result Comment: TROPONIN-I EXPECTED VALUES <0.05 NEGATIVE 0.06 - 0.59 AT RISK OF AR > OR = 0.60 SUGGEST AR Performed By: #### L500.2500, L501.2450, L501.4010 #### [facility] [address] [place], [address] CBC W/DIFF, AUTOMATED Collected: 08/10/2017 Status: F Source: [place] 1:52 PM [facility] REPOSITORY TYPE CODE TESTS RESULT OUT OF [...] Lymph 2.77 Performed By: #### L100.0100 #### [facility] [address] [place], [place], [address] VITAMIN D,25 HYDROXY Collected: 08/10/2017 Status: F Source: [place] 1:52 PM [facility] REPOSITORY TYPE CODE TESTS RESULT OUT OF RANGE REFERENCE UNITS LAB L506.1000 29.95-100.01 ng/mL Normal Vitamin D 31.4 25-OH Result Comment: Vitamin D 25(OH) Status Range Deficiency <20 ng/mL (50nmol/L) Insuffciency 20 - 30 ng/mL (50 - 75 nmol/L) Sufficiency 30 - 100 ng/mL (75 - 250 nmol/L) Toxicity >100 ng/mL (>250 nmol/L) Performed By: #### L506.1000 #### [facility] [address] [place], [place], [address] COMPREHENSIVE METABOLIC Collected: 08/10/2017 Status: F Source: [facility] 1:52 PM [facility] REPOSITORY TYPE CODE TESTS RESULT OUT OF [...] 7 Performed By: #### L500.4050, L501.9520 #### [facility] [place], [place], [address] THYROID STIM HORMONE Collected: 08/10/2017 Status: F Source: [place] (TSH) 1:52 PM [facility] REPOSITORY TYPE CODE TESTS RESULT OUT OF RANGE REFERENCE UNITS LAB L501.9520 0.358-3.74 uIU/mL Normal TSH 0.80 Performed By: #### L500.4050, L501.9520 #### [facility] [address] [place], [place], [address] Observed: 07/27/2017 Status: F Source: [place] RESPIRATORY PANEL 5:11 PM [facility] MOLECULAR REPOSITORY RP PANEL ADENOVIRUS Not Detected [...] acid amplification Performed By: #### M100.638 #### [facility] [address] [place], [place], [address] ALLERGIES ALLERGIES DATE TYPE / CODE NAME / CODE REACTION SEVERITY SOURCE 04/12/2018 Drug morphine/[id number] Low blood Unknown [place] Allergy/416 545(RXNORM) pressure Community 003125([facility] ED CT) Repository 04/12/2018 Drug cephalexin/F0060 Other Unknown [place] Allergy/416 37643(RXNORM) Community 766593([facility] ED CT) Repository 04/12/2018 Drug doxycycline/F006 Itching Unknown [place] Allergy/416 574864(RXNORM) Community 129692([facility] ED CT) Repository 04/12/2018 Drug metoclopramide/F Other Unknown [place] Allergy/416 745882751(RXNORM Community 728583([facility] ED CT) Repository 04/12/2018 Drug citalopram/F0060 Other Unknown [place] Allergy/416 88641(RXNORM) Community 682001([facility] ED CT) Repository 04/12/2018 Drug pregabalin/F0060 Other Unknown [place] Allergy/416 49132(RXNORM) Community 129268([facility] ED CT) Repository 03/23/2016 DRUG MORPHINE UNKNOWN [facility] INGREDI/[address] [place] 362689(SNOM Repository ED CT) 04/24/2013 DRUG CITALOPRAM Mental Chg [facility] [place] 211111(SNOM Repository ED CT) 10/10/2008 DRUG PREGABALIN [facility] [place] 863991(SNOM Repository ED CT) 07/02/2008 DRUG CEPHALEXIN INTOLERANCE [place] [address] [address] [place] 050237(SNOM Repository ED CT) ENCOUNTERS ENCOUNTERS ADMIT/DISCHARGE ACCOUNT ADMITTING ENCOUNTER LOCATION SOURCE NUMBER CLASS 06/06/2018 [id number] [facility] ing:CT Repository 04/20/2018 [id number] [facility] ing:LABSPEC Repository 04/20/2018/04/24/20 [id number] Ambulatory [address] [place] Repository 04/14/2018 [id number] Ambulatory [facility] Hospital ing:OPBI Repository 04/12/2018/04/12/20 [id number] Ambulatory BMSBuilding:B [place] [address] [facility] Repository 04/05/2018 [id number] Ambulatory BMSBuilding:B [place] .CF.[facility] Repository 04/05/2018 [id number] Ambulatory [facility] Hospital ing:OMD Repository 04/04/2018/04/05/20 [id number] Ambulatory [place] [facility] Repository 03/30/2018 [id number] Ambulatory [facility] Hospital ing:CT Repository 03/24/2018 [id number] David, Ambulatory BMSBuilding:B [place] MS.[facility] Repository 03/24/2018 [id number] David, Ambulatory BMSBuilding:B [place] MS.[facility] Repository 03/24/2018 [id number] David, Ambulatory BMSBuilding:B [place] MS.[facility] Repository 03/24/2018 [id number] David, Ambulatory BMSBuilding:B [place] MS.[facility] Repository 03/24/2018 [id number] David, Ambulatory BMSBuilding:B [place]seyk[place]ia [place] MS.[facility] Repository 03/24/2018/03/28/20 [id number] David, Inpatient [place] [address] [place] [facility] Hospital ing:QX2Ztbu: Repository GI417Fyg: 1 02/02/2018 [id number] Ambulatory [facility] Hospital ing:PSN Repository 01/03/2018 [id number] Ambulatory [facility] Hospital ing:CT Repository 01/03/2018 [id number] Ambulatory [facility] Hospital ing:POLAB3 Repository 01/03/2018 [id number] Ambulatory [facility] Hospital ing:POLAB3 Repository 12/20/2017 [id number] Ambulatory [facility] [facility] ing:LABSPEC Repository 12/20/2017/12/21/19 [id number] Ambulatory BMSBuilding:B Chelsey 18 [place].[facility] Repository 12/13/2017/12/14/19 [id number] Ambulatory BMSBuilding:B Carmel 18 MS.[facility] Repository 10/27/2017/10/28/19 [id number] Ambulatory BMSBuilding:B Chelsey 18 [place].[facility] Repository 10/13/2017/10/14/19 [id number] Ambulatory BMSBuilding:B Carmel 18 [place].[facility] Repository 09/29/2017/09/30/19 [id number] Ambulatory BMSBuilding:B Chelsey 18 [place].[facility] Repository 09/26/2017/09/27/19 [id number] Ambulatory BMSBuilding:B Carmel 18 [place].[facility] Repository 09/22/2017 [id number] Ambulatory BMSBuilding:B Carmel MS.[facility] Repository 09/12/2017/09/13/19 [id number] Ambulatory BMSBuilding:B Chelsey 18 [place].[facility] Repository 09/08/2017/09/09/19 [id number] Ambulatory BMSBuilding:B Chelsey 18 [place].[facility] Repository 09/07/2017/09/08/19 [id number] Ambulatory BMSBuilding:B Chelsey 18 [place].[facility] Repository 09/01/2017/09/02/19 [id number] Ambulatory BMSBuilding:B Chelsey 18 [place].[facility] Repository 08/30/2017/08/31/19 [id number] Ambulatory BMSBuilding:B Chelsey 18 [place].[facility] Repository 08/29/2017/08/30/19 [id number] Ambulatory BMSBuilding:B Chelsey 18 [place].[facility] Repository 08/23/2017/08/24/19 [id number] Ambulatory BMSBuilding:B Chelsey 18 [place].[facility] Repository 08/18/2017/08/19/19 [id number] Ambulatory BMSBuilding:W Chelsey 18 [facility] Repository 08/18/2017/08/19/19 [id number] Ambulatory BMSBuilding:W Carmel 18 [facility] Repository 08/17/2017/08/19/19 [id number] [place], Ambulatory Chelsey Chelsey [address] [facility] ing:PCURoom: Repository PDT643Vsp: 1 08/17/2017 [id number] Ashyoselyn, Ambulatory BMSBuilding:Jacob Carmelkathia Valdez MS.[facility] Repository 08/17/2017 [id number] Worthyoselyn, Ambulatory BMSBuilding:B Carmelkathia Valdez MS.[facility] Repository 08/10/2017 [id number] [facility] ing:POLAB3 Repository 07/27/2017 [id number] [facility] ing:PSN Repository PAYERS PAYERS ENCOUNTER GUARANTOR PAYER SUBSCRIBER SOURCE 06/06/2018 KATHY R Primary KATHY R Chelsey [id number] Insurance:MEDICARE SHEDRONDOB: Community CARRIAGE PART A BPolicy [place]: [id number] [id number] Repository 24814Vtp: (330) Date:2018-06-06 [phone] (HP) 06/06/2018 Secondary KATHY R Chelsey Insurance:HUMANA SHEDRONDOB: [facility] [id number] Hospital Number: Repository [id number] Date:7044-90-14SU[address] [address]GL: 06/06/2018 Tertiary NOT GIVENUNK Carmel Insurance:SELF PAY [facility] Number: Effective Repository Date:2018-06-06 04/20/2018 KATHY R Primary KATHY R Chelsey [id number] Insurance:MEDICARE SHEDRONDOB: Community CARRIAGE PART A BPolicy Number: [id number], [place] [id number] Repository 92094Sic: (330) Date:2018-04-20 [phone] (HP) 04/20/2018 Secondary KATHY R Carmel Insurance:HUMANA SHEDRONDOB: [facility] [id number] Hospital Number: Repository [id number] Date:4253-10-84OG [address] [place] [address]HU: 04/20/2018 Tertiary NOT GIVENUNK Chelsey Insurance:SELF PAY [facility]: Effective Repository Date:2018-04-20 04/14/2018 KATHY R Primary KATHY R Carmel [id number] Insurance:MEDICARE SHEDRONDOB: Community CARRIAGE PART A BPolicy Number: [id number], [place] [id number] Repository 99115Xih: (877) Date:2018-04-12 [phone] () 04/14/2018 Secondary KATHY R Carmel Insurance:HUMANA SHEDRONDOB: [facility] [id number] Hospital Number: Repository [id number] Date:6131-65-41ZH [address] [place] [address]ID: 04/14/2018 Tertiary NOT GIVENUNK Chelsey Insurance:SELF PAY [facility] Number: Effective Repository Date:2018-04-12 04/12/2018 KATHY R Primary KATHY R Carmel [id number] Insurance:MEDICARE SHEDRONDOB: Community CARRIAGE PART A BPolicy Number: [id number], [place] [id number] Repository 84542Ytf: (943) Date:2018-04-05 [phone] () 04/12/2018 Secondary KATHY R Chelsey Insurance:HUMANA SHEDRONDOB: [facility] [id number] Hospital Number: Repository [id number] Date:8171-11-30HG [address] [place] [address]OP: 04/12/2018 Tertiary NOT GIVENUNK Carmel Insurance:SELF PAY [facility] Hospital Number: Effective Repository Date:2018-04-11 04/05/2018 KATHY R Primary KATHY R Carmel [id number] Insurance:MEDICARE SHEDRONDOB: Community CARRIAGE PART A BPolicy Number: [id number], [place] [id number] Repository 64572Fgv: 330) Date:2013-12-14 [phone] () 04/05/2018 Secondary KATHY R Chelsey Insurance:HUMANA SHEDRONDOB: [facility] [id number] Hospital Number: Repository [id number] Date:6455-64-95IS [address] [place] [address]AB: 04/05/2018 Tertiary NOT GIVENUNK Carmel Insurance:SELF PAY [facility] Number: Effective Repository Date:2018-04-05 04/05/2018 KATHY R Primary KATHY R Carmel [id number] Insurance:MEDICARE SHEDRONDOB: Community CARRIAGE PART A BPolicy Number: [id number], [place] [id number] Repository 58498Rhy: (117) Date:2013-12-14 [phone] () 04/05/2018 Secondary KATHY R Chelsey Insurance:HUMANA SHEDRONDOB: [facility] [id number] Hospital Number: Repository [id number] Date:5327-08-23GO [address] [place] [address]UB: 04/05/2018 Tertiary NOT GIVENUNK Chelsey Insurance:SELF PAY [facility] Hospital Number: Effective Repository Date:2016-08-03 03/30/2018 KATHY R Primary KATHY R Carmel [id number] Insurance:MEDICARE SHEDRONDOB: Community CARRIAGE PART A BPolicy Number: [id number], [place] [id number] Repository 65342Xzb: (824) Date:2018-01-25 [phone] () 03/30/2018 Secondary KATHY R Carmel Insurance:HUMANA SHEDRONDOB: [facility] [id number] Hospital Number: Repository [id number] Date:5751-91-56YH [address] [address]DO: 03/30/2018 Tertiary NOT GIVENUNK Chelsey Insurance:SELF PAY [facility] Number: Effective Repository Date:2018-01-25 03/24/2018 KATHY R Primary KATHY R Carmel [id number] Insurance:MEDICARE SHEDRONDOB: Community CARRIAGE PART A BPolicy Number: [id number], [place] [id number] Repository 31997Mna: (567) Date:2018-03-24 [phone] () 03/24/2018 Secondary KATHY R Chelsey Insurance:HUMANA SHEDRONDOB: Community COMMERCIALPolicy [id number] Hospital Number: Repository [id number] Date:7663-06-14PR[address] [address]XN: 03/24/2018 Tertiary NOT GIVENUNK Carmel Insurance:SELF PAY [facility] Number: Effective Repository Date:2018-03-24 03/24/2018 KATHY R Primary KATHY R Chelsey [id number] Insurance:MEDICARE SHEDRONDOB: Community CARRIAGE PART A BPolicy Number: [id number], [place] [id number] Repository 46397Zrt: (038) Date:2018-03-24 [phone] () 03/24/2018 Secondary KATHY R Carmel Insurance:HUMANA SHEDRONDOB: Community COMMERCIALPolicy [id number] Hospital Number: Repository [id number] Date:3354-42-75IU[address] [address]FX: 03/24/2018 Tertiary NOT GIVENUNK Carmel Insurance:SELF PAY [facility] Number: Effective Repository Date:2018-03-24 03/24/2018 KATHY R Primary KATHY R Carmel [id number] Insurance:MEDICARE SHEDRONDOB: Community CARRIAGE PART A BPolicy Number: [id number], [place] [id number] Repository 54754Mep: (330) Date:2018-03-24 [phone] () 03/24/2018 Secondary KATHY R Carmel Insurance:HUMANA SHEDRONDOB: Community COMMERCIALPolicy [id number] Hospital Number: Repository [id number] Date:7852-17-38BO [address] [place] [address]XU: 03/24/2018 Tertiary NOT GIVENUNK Carmel Insurance:SELF PAY [facility] Number: Effective Repository Date:2018-03-24 03/24/2018 KATHY R Primary KATHY R Carmel [id number] Insurance:MEDICARE SHEDRONDOB: Community CARRIAGE PART A BPolicy Number: [id number], [place] [id number] Repository 51060Dxd: (048) Date:2018-03-24 [phone] () 03/24/2018 Secondary KATHY R Chelsey Insurance:HUMANA SHEDRONDOB: Community COMMERCIALPolic [id number] Hospital Number: Repository [id number] Date:0164-36-22IM [address] [place] [address]DP: 03/24/2018 Tertiary NOT GIVENUNK Carmel Insurance:SELF PAY [facility] Number: Effective Repository Date:2018-03-24 03/24/2018 KATHY R Primary KATHY R Chelsey [id number] Insurance:MEDICARE SHEDRONDOB: Community CARRIAGE PART A BPolicy Number: [id number], [place] [id number] Repository 25265Khp: (838) Date:2018-03-24 [phone] () 03/24/2018 Secondary KATHY R Chelsey Insurance:HUMANA SHEDRONDOB: Community COMMERCIALPolicy [id number] Hospital Number: Repository [id number] Date:7468-76-11DP[address] [address]BP: 03/24/2018 Tertiary NOT GIVENUNK Chelsey Insurance:SELF PAY [facility] Number: Effective Repository Date:2018-03-24 03/24/2018 KATHY R Primary KATHY R Carmel [id number] Insurance:MEDICARE SHEDRONDOB: Community CARRIAGE PART A BPolicy Number: [id number], [place] [id number] Repository 26718Ybz: (791) Date:2018-03-24 [phone] () 03/24/2018 Secondary KATHY R Carmel Insurance:HUMANA SHEDRONDOB: [facility] [id number] Hospital Number: Repository [id number] Date:6033-48-36QL [address] [place] [address]FV: 03/24/2018 Tertiary NOT GIVENUNK Chelsey Insurance:SELF PAY [facility] Hospital Number: Effective Repository Date:2018-03-24 02/02/2018 KATHY R Primary KATHY R Carmel [id number] Insurance:MEDICARE SHEDRONDOB: Community CARRIAGE PART A BPolicy Number: [id number], [place] [id number] Repository 96675Xnv: 330) Date:2018-01-02 [phone] () 02/02/2018 Secondary KATHY R Carmel Insurance:HUMANA SHEDRONDOB: [facility] [id number] Hospital Number: Repository [id number] Date:4350-29-36RV[address] [address]RV: 02/02/2018 Tertiary NOT GIVENUNK Carmel Insurance:SELF PAY [facility] Hospital Number: Effective Repository Date:2018-01-02 01/03/2018 KATHY R Primary KATHY R Carmel [id number] Insurance:MEDICARE SHEDRONDOB: Community CARRIAGE PART A BPolicy Number: [id number], [place] [id number] Repository 33100Gld: (874) Date:2018-01-03 [phone] () 01/03/2018 Secondary KATHY R Carmel Insurance:HUMANA SHEDRONDOB: [facility] [id number] Hospital Number: Repository [id number] Date:0654-23-01EH[address] [address]TT: 01/03/2018 Tertiary NOT GIVENUNK Chelsey Insurance:SELF PAY [facility] Number: Effective Repository Date:2018-01-03 01/03/2018 Kathy R Primary Kathy R Chelsey [id number] Insurance:MEDICARE ShedronDOB: Community Carriage PART A BPolicy Number: [id number], [place] [id number] Repository 04602Uds: (768) Date:2018-01-03 [phone] () 01/03/2018 Secondary Kathy R Carmel Insurance:HUMANA ShedronDOB: [facility] [id number] Hospital Number: Repository [id number] Date:9686-94-77CB[address] [address]CU: 01/03/2018 Tertiary NOT GIVENUNK Carmel Insurance:SELF PAY [facility] Hospital Number: Effective Repository Date:2018-01-03 01/03/2018 Kathy R Primary Kathy R Carmel [id number] Insurance:MEDICARE ShedronDOB: Community Carriage PART A BPolicy Number: [id number], [place] [id number] Repository 05215Roh: (988) Date:2018-01-03 [phone] () 01/03/2018 Secondary Kathy R Chelsey Insurance:HUMANA ShedronDOB: [facility] [id number] Hospital Number: Repository [id number] Date:2447-41-51TK [address] [address]GJ: 01/03/2018 Tertiary NOT GIVENUNK Carmel Insurance:SELF PAY [facility] Number: Effective Repository Date:2018-01-03 12/20/2017 Kathy R Primary Kathy R Carmel [id number] Insurance:MEDICARE ShedronDOB: Community Carriage PART A BPolicy Number: [id number], [place] [id number] Repository 22163Bcx: (930) Date:2017-12-20 [phone] () 12/20/2017 Secondary Kathy R Chelsey Insurance:HUMANA ShedronDOB: Community [facility] [id number] Hospital Number: Repository [id number] Date:6965-76-51JO [address] [place] [address]TF: 12/20/2017 Tertiary NOT GIVENUNK Carmel Insurance:SELF PAY [facility] Number: Effective Repository Date:2017-12-20 12/20/2017 Kathy R Primary Kathy R Chelsey [id number] Insurance:MEDICARE ShedronDOB: Community Carriage PART A BPolicy Number: [id number], [place] [id number] Repository 85123Hle: 330) Date:2017-12-19 [phone] () 12/20/2017 Secondary Kathy R Carmel Insurance:HUMANA ShedronDOB: [facility] [id number] Hospital Number: Repository [id number] Date:0705-01-95TW [address] [place] [address]SK: 12/20/2017 Tertiary NOT GIVENUNK Chelsey Insurance:SELF PAY [facility] Hospital Number: Effective Repository Date:2017-12-20 12/13/2017 Kathy R Primary Kathy R Chelsey [id number] Insurance:MEDICARE ShedronDOB: Community Carriage PART A BPolicy Number: [id number], [place] [id number] Repository 02641Ahz: (330) Date:2017-12-12 [phone] () 12/13/2017 Secondary Kathy R Chelsey Insurance:HUMANA ShedronDOB: [facility] [id number] Hospital Number: Repository [id number] Date:6151-15-16LV [address] [place] [address]FD: 12/13/2017 Tertiary NOT GIVENUNK Chelsey Insurance:SELF PAY [facility] Hospital Number: Effective Repository Date:2017-12-13 10/27/2017 Kathy R Primary Kathy R Chelsey [id number] Insurance:MEDICARE ShedronDOB: Community Carriage PART A BPolicy Number: [id number], [place] [id number] Repository 99978Xrm: (388) Date:2017-10-13 [phone] () 10/27/2017 Secondary Kathy R Carmel Insurance:HUMANA ShedronDOB: Community COMMERCIALPolicy [id number] Hospital Number: Repository [id number] Date:3274-65-39TO [address] [address]XF: 10/27/2017 Tertiary NOT GIVENUNK Chelsey Insurance:SELF PAY [facility] Number: Effective Repository Date:2017-10-27 10/13/2017 Kathy R Primary Kathy R Chelsey [id number] Insurance:MEDICARE ShedronDOB: Community Carriage PART A olicy Number: [id number], [place] [id number] Repository 87137Lku: (093) Date:2017-09-29 [phone] () 10/13/2017 Secondary Kathy R Carmel Insurance:HUMANA ShedronDOB: [facility] [id number] Hospital Number: Repository [id number] Date:9548-34-28JM [address] [address]AZ: 10/13/2017 Tertiary NOT GIVENUNK Carmel Insurance:SELF PAY [facility] Hospital Number: Effective Repository Date:2017-10-13 09/29/2017 Kathy R Primary Kathy R Chelsey [id number] Insurance:MEDICARE ShedronDOB: Community Carriage PART A olicy Number: [id number], [place] [id number] Repository 45713Goj: (574) Date:2017-09-12 [phone] (HP) 09/29/2017 Secondary Kathy R Chelsey Insurance:HUMANA ShedronDOB: Community COMMERCIALPolicy [id number] Hospital Number: Repository [id number] Date:2089-32-33YS [address] [place] [address]SK: 09/29/2017 Tertiary NOT GIVENUNK Carmel Insurance:SELF PAY [facility] Number: Effective Repository Date:2017-09-29 09/26/2017 Kathy R Primary Kathy R Carmel [id number] Insurance:MEDICARE ShedronDOB: Community Carriage PART A BPolicy Number: [id number], [place] [id number] Repository 67713Msk: (875) Date:2017-09-07 [phone] () 09/26/2017 Secondary Kathy R Chelsey Insurance:HUMANA ShedronDOB: [facility] [id number] Hospital Number: Repository [id number] Date:3197-48-19JQ [address] [place] [address]VL: 09/26/2017 Tertiary NOT GIVENUNK Chelsey Insurance:SELF PAY [facility] Number: Effective Repository Date:2017-09-26 09/22/2017 Kathy R Primary Kathy R Carmel [id number] Insurance:MEDICARE ShedronDOB: Community Carriage PART A BPolicy Number: [id number], [place] [id number] Repository 44943Xzd: (358) Date:2017-09-12 [phone] () 09/22/2017 Secondary Kathy R Chelsey Insurance:HUMANA ShedronDOB: Community [facility] [id number] Hospital Number: Repository [id number] Date:3909-80-49CN [address] [place] [address]GQ: 09/22/2017 Tertiary NOT GIVENUNK Chelsey Insurance:SELF PAY [facility] Number: Effective Repository Date:2017-09-12 09/12/2017 Kathy R Primary Kathy R Chelsey [id number] Insurance:MEDICARE ShedronDOB: Community Carriage PART A BPolicy Number: [id number], [place] [id number] Repository 97313Dle: 330) Date:2017-09-01 [phone] () 09/12/2017 Secondary Kathy R Chelsey Insurance:HUMANA ShedronDOB: Community COMMERCIALPolicy [id number] Hospital Number: Repository [id number] Date:7529-65-71CN[address] [address]NU: 09/12/2017 Tertiary NOT GIVENUNK Carmel Insurance:SELF PAY [facility] Number: Effective Repository Date:2017-09-12 09/08/2017 Kathy R Primary Kathy R Chelsey [id number] Insurance:MEDICARE ShedronDOB: Community Carriage PART A BPolicy Number: [id number], [place] [id number] Repository 66441Ven: 330) Date:2017-09-01 [phone] () 09/08/2017 Secondary Kathy R Chelsey Insurance:HUMANA ShedronDOB: Community COMMERCIALPolicy [id number] Hospital Number: Repository [id number] Date:0863-29-53CE [address] [place] [address]IV: 09/08/2017 Tertiary NOT GIVENUNK Chelsey Insurance:SELF PAY [facility] Number: Effective Repository Date:2017-09-08 09/07/2017 Kathy R Primary Kathy R Chelsey [id number] Insurance:MEDICARE ShedronDOB: Community Carriage PART A BPolicy Number: [id number], [place] [id number] Repository 22493Qaj: (330) Date:2017-09-01 [phone] () 09/07/2017 Secondary Kathy R Carmel Insurance:HUMANA ShedronDOB: Community COMMERCIALPolicy [id number] Hospital Number: Repository [id number] Date:7852-88-29IN [address] [place] [address]TZ: 09/07/2017 Tertiary NOT GIVENUNK Chel[place] Insurance:SELF PAY [facility] Number: Effective Repository Date:2017-09-07 09/01/2017 Kathy R Primary Kathy R Chelsey [id number] Insurance:MEDICARE ShedronDOB: Community Carriage PART A BPolicy Number: [id number], [place] [id number] Repository 44325Bvg: (921) Date:2017-08-29 [phone] () 09/01/2017 Secondary Kathy R Carmel Insurance:HUMANA ShedronDOB: [facility] [id number] Hospital Number: Repository [id number] Date:9444-58-92MI [address] [place] [address]CY: 09/01/2017 Tertiary NOT GIVENUNK Chelsey Insurance:SELF PAY [facility] Number: Effective Repository Date:2017-09-01 08/30/2017 Kathy R Primary Kathy R Chelsey [id number] Insurance:MEDICARE ShedronDOB: Community Carriage PART A BPolicy Number: [id number], [place] [id number] Repository 24706Tbk: (798) Date:2017-08-29 [phone] () 08/30/2017 Secondary Kathy R Carmel Insurance:HUMANA ShedronDOB: Community [facility] [id number] Hospital Number: Repository [id number] Date:3578-52-60PV[address] [address]BI: 08/30/2017 Tertiary NOT GIVENUNK [place] Insurance:SELF PAY [facility] Number: Effective Repository Date:2017-08-30 08/29/2017 Kathy R Primary Kathy R Carmel [id number] Insurance:MEDICARE ShedronDOB: Community Carriage PART A BPolicy Number: [id number], [place] [id number] Repository 01668Ouc: (620) Date:2017-08-23 [phone] () 08/29/2017 Secondary Kathy R Carmel Insurance:HUMANA ShedronDOB: Community COMMERCIALPolic [id number] Hospital Number: Repository [id number] Date:4078-99-27RJ[address] [address]RV: 08/29/2017 Tertiary NOT GIVENUNK [place] Insurance:SELF PAY [facility] Number: Effective Repository Date:2017-08-29 08/23/2017 Kathy R Primary Kathy R Carmel [id number] Insurance:MEDICARE ShedronDOB: Community Carriage PART A BPolicy Number: [id number], [place] [id number] Repository 01842Iyp: (360) Date:2017-08-17 [phone] () 08/23/2017 Secondary Kathy R Carmel Insurance:HUMANA ShedronDOB: [facility] COMMERCIALPolic [id number] Hospital Number: Repository [id number] Date:6507-39-87CG[address] [address]LQ: 08/23/2017 Tertiary NOT GIVENUNK [place] Insurance:SELF PAY [facility] Number: Effective Repository Date:2017-08-23 08/18/2017 Kathy R Primary Kathy R Chelsey [id number] Insurance:MEDICARE ShedronDOB: Community Carriage PART A BPolicy Number: [id number], [place] [id number] Repository 08675Hwf: 330) Date:2017-08-17 [phone] () 08/18/2017 Secondary Kathy R Carmel Insurance:HUMANA ShedronDOB: [facility] COMMERCIALPolic [id number] Hospital Number: Repository [id number] Date:2979-21-96AG[address] [address]YN: 08/18/2017 Tertiary NOT GIVENUNK [place] Insurance:SELF PAY [facility] Number: Effective Repository Date:2017-08-18 08/18/2017 Kathy R Primary Kathy R Carmel [id number] Insurance:MEDICARE ShedronDOB: Community Carriage PART A BPolicy Number: [id number], [place] [id number] Repository 90742Mag: (086) Date:2017-08-17 [phone] (HP) 08/18/2017 Secondary Kathy R Carmel Insurance:HUMANA ShedronDOB: [facility] [facility] [id number] Hospital Number: Repository [id number] Date:[id number] [address] [address]KV: 08/18/2017 Tertiary NOT GIVENUNK Chelsey Insurance:SELF PAY [facility] Number: Effective Repository Date:2017-08-18 08/17/2017 Kathy R Primary Kathy R Chelsey [id number] Insurance:MEDICARE ShedronDOB: Community Carriage PART A BPolicy Number: [id number], [place] [id number] Repository [address]Abv: ([phone]) Date:2017-08-17 [phone] (HP) 08/17/2017 Secondary Kathy R Chelsey Insurance:HUMANA ShedronDOB: [facility] [id number] Hospital Number: Repository [id number] Date:[id number] [address]FK: 08/17/2017 Tertiary NOT GIVENUNK Chelsey Insurance:SELF PAY [facility] Number: Effective Repository Date:2017-08-17 08/17/2017 Kathy R Primary Kathy R Carmel [id number] Insurance:MEDICARE ShedronDOB: Community Carriage PART A BPolicy Number: [id number], [place] [id number] Repository [address]Ciq: ([phone]) Date:2017-08-17 [phone] (HP) 08/17/2017 Secondary Kathy R Carmel Insurance:HUMANA ShedronDOB: [facility] [id number] Hospital Number: Repository [id number] Date:4814-53-90LZ [address] [place] [address]XL: 08/17/2017 Tertiary NOT GIVENUNK Carmel Insurance:SELF PAY [facility] Rep[facility] Date:2017-08-17 08/17/2017 Kathy R Primary Kathy R Chelsey [id number] Insurance:MEDICARE ShedronDOB: Community Carriage PART A BPolicy Number: [id number], [place] [id number] Repository [address]Jli: ([phone]) Date:2017-08-17 [phone] (HP) 08/17/2017 Secondary Kathy R Chelsey Insurance:HUMANA ShedronDOB: [facility] [id number] Hospital Number: Repository [id number] Date:[id number] [address] [address]LC: 08/17/2017 Tertiary NOT GIVENUNK Carmel Insurance:SELF PAY [facility] Number: Effective Repository Date:2017-08-17 08/10/2017 Kathy R Primary Kathy R Carmel [id number] Insurance:MEDICARE ShedronDOB: Community Carriage PART A BPolicy Number: [id number], [place] [id number] Repository [address]Qxv: ([phone]) Date:2017-08-10 [phone] (HP) 08/10/2017 Secondary Kathy R Carmel Insurance:HUMANA ShedronDOB: [facility] [id number] Hospital Number: Repository [id number] Date:6482-97-22WE [address] [place] [address]MY: 08/10/2017 Tertiary NOT GIVENUNK Carmel Insurance:SELF PAY [facility] Number: Effective Repository Date:2017-08-10 07/27/2017 Kathy R Primary Kathy R Carmel [id number] Insurance:MEDICARE ShedronDOB: Community Carriage PART A BPolicy Number: [id number], [place] [id number] Repository [address]Wkq: [phone]) Date:2017-07-27 [phone] () 07/27/2017 Secondary Kathy Barbosa Insurance:HUMANA ShedronDOB: [facility] COMMERCIALPolicy [id number] Hospital Number: Repository [id number] Date:9401-99-38PP [address] [place] [address]MG: 07/27/2017 Tertiary NOT GIVENUNK Carmel Insurance:SELF PAY [facility] Number: Effective Repository Date:2017-07-27
== END ==
PROVIDERS: Family Provider Family Medicine; PCP Family Medicine; Referring Provider Nurse Practitioner Adult Health; Visit Provider Nurse Practitioner Adult Health
DX: Z01.812 Encounter for preprocedural laboratory examination (principal); R10.9 Unspecified abdominal pain
CPT/HCPCS: 74178; Q9967

== ENCOUNTER 2018-07-15 07:57 | Emergency (ER) | payer MEDICARE, OTHER, SELFPAY ==
[2018-04-12 15:25] VITALS: BMI 26.6
[2018-07-15 07:58] VITALS: BP 154/78; PULSE 92; RESP 17; TEMP 36.4; O2SAT 95; BMI 28.3
[2018-07-15] MEDS: Tetracaine 0.5% Ophthalmic Bottle 1 DRP EACH EYE (08:20)
[2018-07-15] MEDS: Fluorescein 1 MG STRIP 1 STRIP LEFT EYE (08:20)
[2018-07-15 08:24] VITALS: O2SAT 97
--- NOTE | 2018-07-15 08:24 | CT_ITS ---
STUDY: CT BRAIN WITHOUT CONTRAST REASON FOR EXAM: Female, 68 years old. Headache. RADIATION DOSAGE (If Supplied By Facility): CTDIvol = ( 44.99 ) mGy, DLP = ( 779.24 ) mGycm TECHNIQUE: Transaxial CT imaging of the brain was performed without administration of intravenous contrast material. Individualized dose optimization techniques were used for this CT. COMPARISON: MRI brain April 08, 2015 FINDINGS: Normal soft tissue structures. 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 There are small ill-defined areas of low density consistent with chronic vascular ischemic change along the interfaces of the anterior horns of the bilateral internal capsules and anterior margins of the lentiform nuclei. Otherwise, normal basal ganglia and thalami. Normal brainstem. Normal cerebellum. There is no intracranial hemorrhage. There are no findings of an acute ischemic infarction. 2 foci of mucoperiosteal thickening or small polyps noted in the inferior right maxillary sinus. CT/Brain/Head without Contrast IMPRESSION: Chronic microvascular ischemic changes of the brain, as noted. No acute intracranial pathology. Electronically Signed: Shawn Mai MD at 9:46 EST , Service support ,
--- NOTE | 2018-07-15 08:28 | ED.DCSUM_ITS ---
- ER Visit Summary Date of Service: 07/15/18 Chief Complaint: Facial pain History of Present Illness: The patient is a 68 F who presents to the emergency department 3-4-day duration of left periorbital pain. Patient states that it is a burning-like pain. She notes that the left eye is watery. She notes some redness. She denies any visual changes. She states it is causing her left gumline to hurt. She notes chronic tinnitus in the left ear. She denies any lesions. She notes that she had a bloody nose this morning as well as some postnasal drip. She states the postnasal drip makes her cough and sometimes feels it in her chest. There is been no fevers. Physical Examination: Afebrile vital signs stable Gen: Well-nourished well-developed Head: Normocephalic atraumatic Eyes: Perrl EOMI there is some lateral injection to the eye. The eye is tearing. With fluorescein staining there is no dendritic lesions or corneal abrasion seen. There are no foreign bodies with eversion of the eyelids. There is diffuse tenderness to the skin in the periorbital region on the left. There are no cords along the temporal artery. ENT: TMs clear no rhinorrhea moist mucous membranes postnasal drip Neck: Supple no lymphadenopathy no JVD nontender CVS: Regular rate rhythm no murmurs normal S1-S2 Respiratory: No distress clear to auscultation bilaterally chest nontender Abdomen: Soft nontender nondistended normal bowel sounds no masses Back: Nontender Extremity: Nontender no edema Skin: Normal color no rash Neuro: alert orientated ?3 CN II-XII intact normal strength sensation reflexes gait cerebellar Psych: Normal affect normal mood Test Results: CT brain showed no intracranial or obvious sed rate moderately elevated at 34. Normal white count. Emergency Department Course and Treatment: I pressures were measured x3 and were equal bilaterally with all readings less than 20. Average for the left eye was 18. Differential would include temporal arteritis, zoster, or other eye pathology. I spoke with Dr. García from ophthalmology and she will leave here and go directly to his office. Impression: 1. Right eye pain This note was generated with [email or web address] dictation software. It may contain incorrect words, spelling, and punctuation that were not noted in review of the chart prior to signing ED Disposition - Plan for ED Patient: Disposition: Home or Assisted Living Instructions: ED Arteritis Temporal, ED Shingles Referrals: Yadira Alston MD [Primary Care Provider] - 2 Days Jus García MD [STAFF PHYSICIAN] - 2 Days
[2018-07-15 09:02] LABS: Absolute Lymphocyte Count 2.18 X10^3/ul (0.83-4.51); Absolute Neutrophil Count 3.4 X10^3/uL (2.0-7.7); Basophil# 0.03 X10^3/uL; Basophil% 0.5 % (0-1); Eosinophil# 0.15 X10^3/uL; Eosinophils% 2.4 % (0-5); Hematocrit 44.4 % (37-47); Hemoglobin 14.4 g/dl (12.0-15.0); Lymphocyte # 2.18 X10^3/ul (4.0); Lymphocyte % 35.3 % (19-41); Mean Corp Hgb Conc 32.4 g/gl (32-36); Mean Corpuscular Hgb 29.3 pg (27.0-32.0); Mean Corpuscular Volume 90.4 fL (81-99); Mean Platelet Vol. 9.7 fl (6.2-12.0); Monocyte# 0.42 X10^3/uL; Monocyte% 6.8 % (0-10); Neutrophil # 3.39 X10^3/uL (2.7-7.7); Platelet Count 264 K/mm3 (150-450); RBC Distribution Width CV 13.6 % (11.6-14.6); RBC Distribution Width SD 45.1 fl (35.1-43.9); Red Blood Count 4.91 M/mm3 (4.2-5.4); White Blood Count 6.2 K/mm3 (4.4-11.0)
[2018-07-15 09:07] LABS: Anion Gap 8 (5-15); BUN 15 mg/dL (7-18); BUN/Creat Ratio 16.3 RATIO (10-20); Calcium,Total 9.2 mg/dL (8.5-10.1); Chloride 106 mmol/L (98-107); Creatinine, Serum 0.92 mg/dL (0.55-1.02); EST Glomerular Filtration Rate 64 mL/min (>60); Est Glom Filt Rate - Afr Amer 78 mL/min (>60); Estimated Creatinine Clearance 43.55 ml/min; Glucose 178 mg/dL (74-106); Potassium 3.2 mmol/L (3.5-5.1); Sodium Level 138 mmol/L (136-145)
[2018-07-15 09:13] LABS: Erythrocyte Sedimentation Rate 34 mm/hr (0-30); POSITIVE COUNT NO; POSITIVE DIFFERENTIAL NO; POSITIVE MORPHOLOGY NO
[2018-07-15 09:57] VITALS: RESP 14
[2018-07-15 11:14] VITALS: BP 147/87; PULSE 87; RESP 14; O2SAT 97
== END 2018-07-15 11:15 | disposition home or self-care (01) ==
PROVIDERS: Emergency Provider Emergency Medicine; Family Provider Family Medicine; PCP Family Medicine
DX: H57.12 Ocular pain, left eye (principal); H93.12 Tinnitus, left ear; I10 Essential (primary) hypertension; R05 Cough; M79.7 Fibromyalgia; R70.0 Elevated erythrocyte sedimentation rate; K58.9 Irritable bowel syndrome, unspecified; Z87.891 Personal history of nicotine dependence; Z79.899 Other long term (current) drug therapy
CPT/HCPCS: 70450; 80048; 85025; 85652; 99284; A4216

== ENCOUNTER → 2018-07-21 16:15 | Outpatient (CLI) | payer MEDICARE, OTHER, SELFPAY ==
[2018-07-15 07:58] VITALS: BMI 28.3
[2018-07-21 17:51] LABS: CRP 3.63 mg/L (0.0-3.0)
[2018-07-21 17:52] LABS: Erythrocyte Sedimentation Rate 18 mm/hr (0-30)
== END ==
PROVIDERS: Family Provider Family Medicine; PCP Family Medicine; Referring Provider Ophthalmology; Visit Provider Ophthalmology
DX: H05.122 Orbital myositis, left orbit (principal)
CPT/HCPCS: 36415; 85652; 86140

== ENCOUNTER 2018-08-17 15:28 | Inpatient (IN) | payer MEDICARE, OTHER, SELFPAY ==
[2018-08-17] VITALS (14 sets, daily range): BP systolic 115–169; BP diastolic 57–74; PULSE 89–116; RESP 18–24; TEMP 36.7–37.6; O2SAT 92–98; BMI 28.1; BMI 28.2; BMI 27.1
--- NOTE | 2018-08-17 15:48 | RAD_ITS ---
STUDY: X-RAY CHEST REASON FOR EXAM: Female, 68 years old. Cough and fever TECHNIQUE: PA and lateral views of the chest. Chest x-ray COMPARISON: Chest x-ray performed earlier the same day and 12/09/2016 FINDINGS: The lungs are clear and expanded. There is no demonstrated pleural abnormality. Normal size heart. Normal mediastinum and thomas. Normal visualized pulmonary arteries. Normal visualized aortic arch and descending thoracic aorta. Normal visualized thoracic spine. Normal visualized ribs, clavicles, and shoulders. There is no demonstrated abnormality of the visualized soft tissue structures of the upper abdomen. RAD/Chest PA and Lateral IMPRESSION: Normal x-ray examination of the chest. Electronically Signed: Susie Lomax, at 17:02 EDT Tel , Service support ,
[2018-08-17] MEDS: Ipratropium/Albuterol Sulfate 3 ML AMPUL.NEB INHALATION ×2 (15:50→23:39)
--- NOTE | 2018-08-17 15:51 | ED.VISSUMM ---
- ER Visit Summary Date of Service: 08/17/18 Chief Complaint: Short of breath and cough History of Present Illness: The patient is a 68 F with shortness of breath and a cough that started this morning. It came on gradually. She had some sputum in the morning but her cough is now dry. She has muscle aches and a sore throat. She also reports feeling dizzy this morning but that has resolved. She has some eye and face pain 2. She is requesting a breathing treatment. She does have a rescue inhaler at home but is not using it or steroids or antibiotics currently. No chest pain or fevers. No history of blood clots. Physical Examination: Afebrile and vital signs unremarkable except for a heart rate of 105. The patient is sitting and appears ill but not toxic or in distress. Alert and oriented. Skin appears normal without diaphoresis or pallor. Heart regular. Lungs are diminished in all kenny. No wheezing noted. Abdomen soft. Extremities soft and nontender. No edema. Test Results: Chest x-ray and influenza swab pending. Emergency Department Course and Treatment: Patient treated with a DuoNeb treatment while awaiting results. Will reassess. While patient was in the emergency department she began having left-sided chest pain that radiated down into her left arm. She never had this before. She has a history of hypertension and hyperlipidemia. EKG was done and showed sinus tachycardia but no sign of ischemia or infarction pattern. Labs were added on. Her potassium was 3.0. Glucose 154. Troponin normal. D-dimer was normal. Influenza test was negative. Chest x-ray was normal. Patient was also complaining of a headache. She received Tylenol and then Toradol. She has been dealing with headaches and facial pain for the past month. She has had eye burning. She has had imaging which was unremarkable. She saw an eye doctor and was told she had a normal eye exam. Her doctors considered temporal arteritis, but testing was unremarkable and she did not need a biopsy. She is planning to have an MRI on Tuesday. I see no evidence of stroke or seizure. I do not believe that this is an emergent process. I had an extensive conversation with the patient. I believe that she should follow-up with the MRI, but this can be managed as an outpatient. She had no further emergent symptoms regarding her facial or head pain. Regarding her chest pain. She had continued chest pain and palpitations. She has a heart score of 4. Hospitalist was contacted for cardiac evaluation. Treatment Plan: As above Disposition: Admission Impression: 1. Chest pain 2. Cough This note was generated with [employer] dictation software. It may contain incorrect words, spelling, and punctuation that were not noted in review of the chart prior to signing ED Disposition - Plan for ED Patient: Referrals: Yadira Alston MD [Primary Care Provider] -
--- NOTE | 2018-08-17 16:31 | EKG12_ITS ---
Test Reason : CP Blood Pressure : / mmHG Vent. Rate : 121 BPM Atrial Rate : 121 BPM P-R Int : 128 ms QRS Dur : 078 ms QT Int : 360 ms P-R-T Axes : 070 -20 084 degrees QTc Int : 511 ms Sinus tachycardia with Premature atrial complexes Nonspecific ST and T wave abnormality Abnormal ECG Confirmed by RADHA CAROLINA, GERARDO ([id number]), index editor MIA LAWSON ([id number]) on 08/21/2018 11:08:11 AM Referred By: LIANG Confirmed By:GERARDO GARCIA MD
--- NOTE | 2018-08-17 16:59 | ED.RN ---
PT CALLED OUT SAYING HAD CHEST PAIN WITH RADIATION LT SHOULDER. PT ALSO STATED, I CANT STOP SHAKING AND PT WITH MOD ANXIETY OBS. AWARE AND SL PLACED AND EKG DONE. PT WITH HR 130 THOUGH DOWN TO 116 WITH DEEP BREATHNG EXERCISES TO CALM. LABS DRAWN BUT NO ORDER.
[2018-08-17] MEDS: Acetaminophen 500 MG Tablet 1000 MG PO (17:05)
--- NOTE | 2018-08-17 17:29 | ED.RN ---
daughter of pt upset over not having a diagnosis and just sending her home with noone there. foam charger aware of family concerns. talked with pt and daughter previously and explained that if labs and xray ok pt will prob be dc'd home. daughter worried that pts face really red and that shes still shaking off and on tylenol given for c/o ecspedes and eye pain
[2018-08-17 18:19] LABS: Absolute Lymphocyte Count 1.76 X10^3/ul (0.83-4.51); Absolute Neutrophil Count 7.5 X10^3/uL (2.0-7.7); Basophil# 0.02 X10^3/uL; Basophil% 0.2 % (0-1); Eosinophil# 0.06 X10^3/uL; Eosinophils% 0.6 % (0-5); Hematocrit 44.9 % (37-47); Hemoglobin 14.9 g/dl (12.0-15.0); Lymphocyte # 1.76 X10^3/ul (4.0); Lymphocyte % 18.1 % (19-41); Mean Corp Hgb Conc 33.2 g/gl (32-36); Mean Corpuscular Volume 90.3 fL (81-99); Mean Platelet Vol. 10.1 fl (6.2-12.0); Monocyte# 0.39 X10^3/uL; Neutrophil # 7.46 X10^3/uL (2.7-7.7); Platelet Count 269 K/mm3 (150-450); RBC Distribution Width SD 45.8 fl (35.1-43.9); Red Blood Count 4.97 M/mm3 (4.2-5.4); White Blood Count 9.7 K/mm3 (4.4-11.0)
[2018-08-17 18:21] LABS: POSITIVE COUNT NO; POSITIVE DIFFERENTIAL NO; POSITIVE MORPHOLOGY NO
[2018-08-17 18:29] LABS: D-Dimer Quantitative (DVT/PE) 0.49 FEU/ug/m (0.27-0.49)
[2018-08-17 18:38] LABS: Anion Gap 11 (5-15); BUN 13 mg/dL (7-18); BUN/Creat Ratio 14.3 RATIO (10-20); Calcium,Total 9.2 mg/dL (8.5-10.1); Chloride 103 mmol/L (98-107); Creatinine, Serum 0.91 mg/dL (0.55-1.02); EST Glomerular Filtration Rate 65 mL/min (>60); Est Glom Filt Rate - Afr Amer 79 mL/min (>60); Estimated Creatinine Clearance 44.03 ml/min; Glucose 154 mg/dL (74-106); Sodium Level 138 mmol/L (136-145)
--- NOTE | 2018-08-17 19:07 | HP.PCM_ITS ---
Problem List (1) COPD exacerbation Status: Chronic History of Present Illness Date of Admission: 08/17/18 Chief Complaint: chest tightness The patient is a 68 year old F with a significant history of COPD/asthma; IBS; fibromyalgia who presented to the emergency department with chest tightness that started on the same day of her admission. Her chest pain radiates to her left back. Her chest pain is aggravated with coughing. Associated with her symptoms is throat pain and productive cough of greenish sputum. Also patient has shortness of breath with mild exertion. ED nurse reports that patient was very short of breath with ambulation at the ED. She reports a chronic headache with vertigo for which she is scheduled to see her PCP on 08/21/2018. At emergency department patient was hypokalemic and she received potassium. Also she received a breathing treatment. Past Medical History Past Medical History (Chronic Problems): Chronic Problems (Last Reviewed 08/17/18 @ 20:24 by Gerardo Gates MD) Breast density (Chronic) COPD exacerbation (Chronic) Fibromyalgia (Chronic) IBS (irritable bowel syndrome) (Chronic) Thoracic neuritis (Chronic) Segmental and somatic dysfunction of lumbar region (Chronic) Segmental and somatic dysfunction of thoracic region (Chronic) Thoracic back pain (Chronic) Non-small cell lung cancer (NSCLC) (Chronic) Acquired hypothyroidism (Chronic) Benign essential HTN (Chronic) Hypertriglyceridemia (Chronic) Odynophagia (Chronic) Medical History: Medical History (Last Reviewed 08/17/18 @ 20:24 by Gerardo Gates MD) Abnormal CT of the chest (Acute) R93.89 Fibromyalgia (Chronic) M79.7 IBS (irritable bowel syndrome) (Chronic) K58.9 Allergies doxycycline Allergy (Verified 08/17/18 15:29) Itching cephalexin Adverse Reaction (Verified 08/17/18 15:29) Other citalopram Adverse Reaction (Verified 08/17/18 15:29) Other metoclopramide [From Reglan] Adverse Reaction (Verified 08/17/18 15:29) Other morphine Adverse Reaction (Verified 08/17/18 15:29) Low blood pressure pregabalin Adverse Reaction (Verified 08/17/18 15:29) Other Home Medications: Ambulatory Orders Medication Instructions Recorded ALPRAZolam [Xanax] 0.5 mg PO PRN PRN 02/13/15 Felodipine [Plendil] 10 mg PO DAILY 02/13/15 Levothyroxine [Synthroid] 50 mcg PO DAILY 02/13/15 Atorvastatin Calcium [Lipitor] 10 mg PO QHS 08/17/17 Albuterol Sulfate [Ventolin Hfa] 1 - 2 puff INHALATION PRN PRN 03/24/18 Pantoprazole Sodium [Protonix] 40 mg PO DAILY #30 tab 03/28/18 Surgical History: Surgical History (Last Reviewed 08/17/18 @ 20:34 by Gerardo Gates MD) H/O cataract extraction Z98.49 bilateral S/P appendectomy Z90.49 S/P bilateral foot surgery Z98.890 S/P breast biopsy, bilateral Z98.890 with clip in left breast S/P cholecystectomy Z90.49 S/P partial lobectomy of lung Z90.2 left due to lung cancer S/P removal of ovarian cyst Z98.890, Z87.42 Surgical History: appendectomy, cholecystectomy, hysterectomy Psychiatric History: No pertinent psych hx 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 Denies: Sinus Congestion, Sinus Drainage Cardiovascular: Reports: Chest Pain. Denies: Palpitations Respiratory: Reports: Cough, Shortness of breath upon exertion. Denies: Shortness of breath at rest, Sputum production Gastrointestinal: Denies: Abdominal Pain, Nausea, Vomiting Genitourinary: Denies: Dysuria Musculoskeletal: Denies: Joint Pain, Joint Tenderness Skin: Denies: Rash, Wounds Neurological: Denies: Numbness, Tingling, Focal weakness Psychiatric: Denies: Anxiety, Depression, Homicidal Ideations, Suicidal Ideations Hematologic/ Lymphatic: Denies: Easy Bruising, Easy Bleeding VTE Information - Inpt Only VTE Present on Admission: No VTE Mechan Device Prophylaxis: SCD's VTE Pharm Prophylaxis ordered?: No - Physical Exam General: Alert, Oriented x3, Cooperative HEENT: Atraumatic, PERRLA, EOMI, Normocephalic Neck: Supple, No JVD, Negative Carotid Bruits Lungs: - - Coarse Cardiovascular: No murmurs, Tachycardic Abdomen: Bowel Sounds Present, Soft, Non Tender Extremities: No edema, Capillary Refill Less than 3 Seconds Skin: No rashes, No breakdown Musculoskeletal: No Tenderness to Palpation of Joints or Extremities Neurological: Neuro grossly intact Psych/Mental Status: Anxious Vital Signs Temp Pulse Resp BP Pulse Ox 98.5 F 108 H 18 169/71 H 93 08/17/18 18:32 08/17/18 18:53 08/17/18 18:53 08/17/18 18:53 08/17/18 18:53 Oxygen Delivery Method Room Air Weight: 67.6 kg Body Mass Index (BMI) 28.1 Microbiology Past 72 Hours 08/17/18 15:55 Influenza Types A,B Direct FA ([place]) - Final Mucosa - Nasopharyngeal Laboratory Tests Past 24 Hrs 08/17/18 08/17/18 08/17/18 18:10 18:10 18:10 WBC 9.7 RBC 4.97 Hgb 14.9 Hct 44.9 MCV 90.3 MCH 30.0 MCHC 33.2 RDW 14.0 RDW Differential 45.8 H Plt Count 269 MPV 10.1 Immature Gran % (Auto) 0.100 Neut % (Auto) 77.0 H Lymph % (Auto) 18.1 L [place] % (Auto) 4.0 Eos % (Auto) 0.6 Baso % (Auto) 0.2 Absolute Neuts (auto) 7.5 Absolute Lymphs (auto) 1.76 Total Counted Not Reportable D-Dimer Quant (PE/DVT) 0.49 Sodium 138 Potassium 3.0 L Chloride 103 Carbon Dioxide 24.0 Anion Gap 11 BUN 13 Creatinine 0.91 Estim Creat Clear Calc 44.03 Est GFR (MDRD) Af Amer 79 Est GFR (MDRD) Non-Af 65 BUN/Creatinine Ratio 14.3 Glucose 154 H Calcium 9.2 Troponin I < 0.015 Assessment/Plan All Active Problems (Last Reviewed 08/17/18 @ 20:24 by Gerardo Gates MD) Abnormal CT of the chest (Acute) Lower gastrointestinal bleeding (Acute) Left sided colitis (Acute) The patient is a 68 year old F with a significant history of COPD/asthma; IBS; fibromyalgia who presented to the emergency department with chest tightness; cough productive for greenish sputum; throat pain; with probable acute bronch itis Acute bronchitis/COPD exacerbation/asthma exacerbation Patient reported that she gets agitated with steroids and she has a swelling of joints. Received DuoNeb at emergency department Scheduled DuoNeb. Albuterol prn. Azithromycin ordered. Will get a comprehensive respiratory pathogen panel. Mucinex ordered Chest pain Her chest pain most likely is from acute bronchitis/COPD extubation/asthma extubation Admit to a monitored bed on PCU CXR independently reviewed confirms no acute cardiopulmonary process. EKG independently reviewed confirms sinus tach with PACs Received aspirin 325 mg in the emergency department ASA 81 mg p.o. daily SL NTG 0.4 mg prn as needed for chest pain Morphine as needed for pain We will check lipid panel. Serial cardiac enzymes Stat EKG as needed for chest pain Chemical Stress test in the AM if the cardiac enzymes are negative. Patient reports she can run on the treadmill Hypokalemia His potassium at presentation was 3.0. She was given K-Dur 40meq at the ED. Will give additional 40meq x1 BMP in am. Anxiety disorder Xanax as needed continued Hyperlipidemia Lipitor continued Hypertension On presentation her blood pressure was not within goal. Felodipine continued As needed Catapres ordered. Hypothyroidism Synthroid continued GERD Protonix continued DVT prophylaxis Subcutaneous Lovenox ordered.. Code Visit OBSV E&M: 62517 Initial observation care L3
[2018-08-17] MEDS: Ondansetron 4 MG/2 ML Vial IV (19:22)
[2018-08-17] MEDS: Ketorolac 15 MG/ML Vial IV (19:22)
[2018-08-17] MEDS: Aspirin 81 MG TAB.CHEW 324 MG PO (19:32)
--- NOTE | 2018-08-17 20:07 | EKG12_ITS ---
Test Reason : ADMISSION Blood Pressure : / mmHG Vent. Rate : 097 BPM Atrial Rate : 097 BPM P-R Int : 132 ms QRS Dur : 080 ms QT Int : 354 ms P-R-T Axes : 069 -19 093 degrees QTc Int : 449 ms Normal sinus rhythm Abnormal QRS-T angle, consider primary T wave abnormality Abnormal ECG When compared with ECG of 17-AUG-2018 16:32, MANUAL COMPARISON REQUIRED, DATA IS UNCONFIRMED Confirmed by RADHA CAROLINA, GERARDO ([id number]), editor publications MIA LAWSON ([id number]) on 08/22/2018 8:16:35 AM Referred By: Confirmed By:GERARDO GARCIA MD
[2018-08-17] MEDS: Azithromycin 250 MG Tablet 500 MG PO (21:51)
[2018-08-17] MEDS: guaiFENesin 1,200 MG Tablet 1200 MG PO (21:52)
[2018-08-18] VITALS (19 sets, daily range): BP systolic 106–164; BP diastolic 49–68; PULSE 82–118; RESP 16–20; TEMP 36.7–38.3; O2SAT 88–98
[2018-08-18] MEDS: Acetaminophen 325 MG Tablet 650 MG PO ×4 (00:56→20:59)
[2018-08-18] MEDS: guaiFENesin/Codeine 5 ML UDC PO (00:57)
--- NOTE | 2018-08-18 02:31 | NURSING ---
This RN took patient to restroom, she returned and stated her privates burn and hurt after urinating. She stated this was the first time she felt this.
--- NOTE | 2018-08-18 05:55 | EKG12_ITS ---
Test Reason : AM EKG Blood Pressure : / mmHG Vent. Rate : 093 BPM Atrial Rate : 093 BPM P-R Int : 136 ms QRS Dur : 074 ms QT Int : 364 ms P-R-T Axes : 069 -20 073 degrees QTc Int : 452 ms Normal sinus rhythm Normal ECG When compared with ECG of 17-AUG-2018 21:32, MANUAL COMPARISON REQUIRED, DATA IS UNCONFIRMED Confirmed by RADHA CAROLINA, GERARDO ([id number]), news editor MIA LAWSON ([id number]) on 08/22/2018 8:15:01 AM Referred By: DR KOHLER Confirmed By:GERARDO GARCIA MD
[2018-08-18 06:18] LABS: Absolute Lymphocyte Count 0.53 X10^3/ul (0.83-4.51); Absolute Neutrophil Count 3.9 X10^3/uL (2.0-7.7); Basophil# 0.01 X10^3/uL; Basophil% 0.2 % (0-1); Eosinophil# 0.02 X10^3/uL; Eosinophils% 0.4 % (0-5); Hematocrit 37.1 % (37-47); Lymphocyte # 0.53 X10^3/ul (4.0); Lymphocyte % 10.7 % (19-41); Mean Corp Hgb Conc 32.3 g/gl (32-36); Mean Corpuscular Volume 89.6 fL (81-99); Mean Platelet Vol. 10.3 fl (6.2-12.0); Monocyte% 10.1 % (0-10); Neutrophil # 3.89 X10^3/uL (2.7-7.7); Neutrophil % 78.6 % (47-70); Platelet Count 188 K/mm3 (150-450); RBC Distribution Width CV 14.4 % (11.6-14.6); RBC Distribution Width SD 46.5 fl (35.1-43.9); Red Blood Count 4.14 M/mm3 (4.2-5.4)
[2018-08-18 06:19] LABS: Differential Indicated SCAN CRITERIA MET; POSITIVE COUNT NO; POSITIVE DIFFERENTIAL YES; POSITIVE MORPHOLOGY NO
[2018-08-18] MEDS: Levothyroxine 50 MCG Tablet PO (06:26)
[2018-08-18 06:28] LABS: International Normalized Ratio 1.1; Prothrombin Time (Protime)PT. 14.1 SECONDS (11.7-14.9)
[2018-08-18 06:29] LABS: Partial Thromboplast Time 36.6 Seconds (24.1-36.2)
[2018-08-18 06:39] LABS: Anion Gap 7 (5-15); BUN 12 mg/dL (7-18); BUN/Creat Ratio 12.7 RATIO (10-20); Calcium,Total 8.4 mg/dL (8.5-10.1); Chloride 112 mmol/L (98-107); Cholesterol 122 mg/dL (200); Creatinine, Serum 0.95 mg/dL (0.55-1.02); EST Glomerular Filtration Rate 62 mL/min (>60); Est Glom Filt Rate - Afr Amer 75 mL/min (>60); Estimated Creatinine Clearance 42.17 ml/min; Glucose 90 mg/dL (74-106); High Density Lipoprotein 48 mg/dL; Potassium 4.4 mmol/L (3.5-5.1); Sodium Level 142 mmol/L (136-145); Triglycerides 146 mg/dL; Very Low Density Lipoprotein 29 mg/dL (5-40)
[2018-08-18 06:50] LABS: Differential Comment SCANNED
[2018-08-18 07:33] LABS: Lactic Acid 1.5 mmol/L (0.4-2.0)
[2018-08-18] MEDS: Ipratropium/Albuterol Sulfate 3 ML AMPUL.NEB INHALATION ×4 (07:35→23:31)
[2018-08-18 09:39] LABS: Color, Urine Amber (Yellow); Glucose, Dipstick Normal (Normal); Ketone-Dipstick 5 mg/dl (Negative); Leukocyte Esterase-Dipstick 25 /ul (Negative); Nitrite-Dipstick Negative (Negative); Occult Blood-Urine 10 /ul (Negative); Protein-Dipstick 15 mg/dl (Negative); Urine Clarity Sl. Cloudy (Clear); Urine Urobilinogen 1 mg/dl (Normal)
[2018-08-18] MEDS: 0.9% Normal Saline 1,000 ML 100 ML IV (09:39)
[2018-08-18] MEDS: levoFLOXacin IV 750 MG/150 ML BAG 100 MG IV (09:39)
[2018-08-18 09:48] LABS: Urine Bilirubin Dipstick 1 mg/dL (Negative)
[2018-08-18 09:50] LABS: Bacteria RARE /hpf (None Seen); Mucous, Urine 2+ /hpf (<or=2+); Red Blood Cells-Urine 0-5 SEEN /hpf (0-5); Squamous Epithelial Cells - UA 0-5 SEEN /hpf (5-10); White Blood Cells 0-5 SEEN /hpf (0-5)
[2018-08-18] MEDS: guaiFENesin 1,200 MG Tablet 1200 MG PO ×2 (10:01→21:56)
[2018-08-18] MEDS: Aspirin E.C. 81 MG Tablet PO (10:01)
[2018-08-18] MEDS: Pantoprazole Sodium 40 MG Tablet PO (10:01)
[2018-08-18] MEDS: Enoxaparin 40 MG/0.4 ML Syringe SC (10:02)
[2018-08-18] MEDS: amLODIPine 10 MG Tablet PO (11:35)
--- NOTE | 2018-08-18 12:32 | PCM.PN.HOSP ---
Subjective: States she is feeling a little bit better though has not slept well continues to have some myalgias that she has been experiencing a couple days prior to admission. Vitals/I&O's: Vital Signs Temp Pulse Resp BP Pulse Ox 98.1 F 100 18 133/53 H 98 08/18/18 11:29 08/18/18 11:29 08/18/18 11:29 08/18/18 11:29 08/18/18 11:29 Oxygen Flow Rate (L/min) 2 Oxygen Delivery Method Nasal Cannula Weight: 143 lb 15.39 oz Body Mass Index (BMI) 27.1 Intake and Output for Last 24 Hours 08/16/18 08/17/18 08/18/18 23:59 23:59 23:59 Intake Total 518 / 518 Balance 518 / 518 General: Alert, Oriented x3, Cooperative, No apparent distress HEENT: Atraumatic, PERRLA, EOMI, Normocephalic Oral: Moist Mucosa Neck: Supple, No JVD, Trachea Midline Lungs: Clear to auscultation, Normal air movement, No rhonchi, No wheeze, No rales, Diminished Cardiovascular: Regular rate, Regular Rhythm, Normal S1, Normal S2, No murmurs Abdomen: Soft, Non Tender, Non-Distended, No Hepato-splenomegaly Extremities: No edema, Capillary Refill Less than 3 Seconds Skin: No rashes, No breakdown Neurological: Neuro grossly intact, Sensory exam intact to light touch and pain Psych/Mental Status: Normal Affect, Appropriate Microbiology Past 72 Hours 08/17/18 15:55 Mucosa - Nasopharyngeal Influenza Types A,B Direct FA ([place]) - Final Laboratory Results 08/17/18 18:10: WBC 9.7, RBC 4.97, Hgb 14.9, Hct 44.9, MCV 90.3, MCH 30.0, MCHC 33.2, RDW 14.0, RDW Differential 45.8 H, Plt Count 269, MPV 10.1, Immature Gran % (Auto) 0.100, Neut % (Auto) 77.0 H, Lymph % (Auto) 18.1 L, [place] % (Auto) 4.0, Eos % (Auto) 0.6, Baso % (Auto) 0.2, Absolute Neuts (auto) 7.5, Absolute Lymphs (auto) 1.76, Total Counted Not Reportable 08/17/18 18:10: D-Dimer Quant (PE/DVT) 0.49 08/17/18 18:10: Sodium 138, Potassium 3.0 L, Chloride 103, Carbon Dioxide 24.0, Anion Gap 11, BUN 13, Creatinine 0.91, Estim Creat Clear Calc 44.03, Est GFR (MDRD) Af Amer 79, Est GFR (MDRD) Non-Af 65, BUN/Creatinine Ratio 14.3, Glucose 154 H, Calcium 9.2, Troponin I < 0.015 08/17/18 21:40: Troponin I < 0.015 08/18/18 00:36: Troponin I < 0.015 08/18/18 05:58: Sodium 142, Potassium 4.4, Chloride 112 H, Carbon Dioxide 23.0, Anion Gap 7, BUN 12, Creatinine 0.95, Estim Creat Clear Calc 42.17, Est GFR (MDRD) Af Amer 75, Est GFR (MDRD) Non-Af 62, BUN/Creatinine Ratio 12.7, Glucose 90, Calcium 8.4 L, Triglycerides 146, Cholesterol 122, LDL Cholesterol 45, VLDL Cholesterol 29, HDL Cholesterol 48 08/18/18 05:58: PT 14.1, INR 1.1, APTT 36.6 H 08/18/18 05:58: WBC 5.0, RBC 4.14 L, Hgb 12.0, Hct 37.1, MCV 89.6, MCH 29.0, MCHC 32.3, RDW 14.4, RDW Differential 46.5 H, Plt Count 188, MPV 10.3, Immature Gran % (Auto) 0.000, Neut % (Auto) 78.6 H, Lymph % (Auto) 10.7 L, [place] % (Auto) 10.1 H, Eos % (Auto) 0.4, Baso % (Auto) 0.2, Absolute Neuts (auto) 3.9, Absolute Lymphs (auto) 0.53 L, Total Counted Not Reportable, Differential Comment SCANNED 08/18/18 06:55: Urine Color Reyna, Urine Clarity Sl. Cloudy, Urine pH 5.0, Ur Specific [place] 1.020, Urine Protein 15 H, Urine Glucose (UA) Normal, Urine Ketones 5 H, Urine Occult Blood 10 H, Urine Nitrite Negative, Urine Bilirubin 1 H, Urine Urobilinogen 1 H, Ur Leukocyte Esterase 25 H, Urine RBC 0-5 SEEN, Urine WBC 0-5 SEEN, Ur Squamous Epith Cells 0-5 SEEN, Urine Bacteria RARE, Urine Mucus 2+ 08/18/18 07:04: Lactic Acid 1.5 Current Medications Acetaminophen (Tylenol) 650 mg PO Q6H PRN PRN PRN Reason: PAIN Last Admin: 08/18/18 07:26 Dose: 650 mg Albuterol Sulfate (Ventolin Aerosols) 2.5 mg INHALATION Q2H PRN PRN PRN Reason: SHORTNESS OF BREATH Albuterol/Ipratropium (Duoneb) 3 ml INHALATION Q4H.RT [facility] Last Admin: 08/18/18 11:30 Dose: Not Given Alprazolam (Xanax) 0.5 mg PO QHS PRN PRN PRN Reason: ANXIETY Amlodipine Besylate (Norvasc) 10 mg PO DAILY [facility] Last Admin: 08/18/18 11:35 Dose: 10 mg Aspirin (Ecotrin) 81 mg PO DAILY@0800 [facility] Last Admin: 08/18/18 10:01 Dose: 81 mg Atorvastatin Calcium (Lipitor) 10 mg PO QHS [facility] Clonidine (Catapres) 0.1 mg PO Q6H PRN PRN PRN Reason: SBP > 160 Enoxaparin Sodium (Lovenox) 40 mg SC DAILY@1000 [facility] Last Admin: 08/18/18 10:02 Dose: 40 mg Guaifenesin (Mucinex) 1,200 mg PO BID [facility] Last Admin: 08/18/18 10:01 Dose: 1,200 mg Guaifenesin/Codeine Phosphate (Robitussin Ac) 5 ml PO Q6H PRN PRN PRN Reason: COUGH Last Admin: 08/18/18 00:57 Dose: 5 ml Sodium Chloride () 1,000 mls @ 100 mls/hr IV .Q10H [facility] Stop: 08/18/18 16:54 Last Admin: 08/18/18 09:39 Dose: 100 mls/hr Levofloxacin (Levaquin Iv) 750 mg in 150 mls @ 100 mls/hr IV Q48 [facility] Last Admin: 08/18/18 09:39 Dose: 100 mls/hr Levothyroxine Sodium (Synthroid) 50 mcg PO DAILY@0600 [facility] Last Admin: 08/18/18 06:26 Dose: 50 mcg Magnesium Hydroxide (Milk Of Magnesia) 30 ml PO DAILY PRN PRN Reason: Constipation Nitroglycerin (Nitrostat) 0.4 mg SUBLINGUAL Q5M PRN PRN Reason: CHEST PAIN Ondansetron HCl (Zofran) 4 mg IV Q8H PRN PRN PRN Reason: NAUSEA Pantoprazole Sodium (Protonix) 40 mg PO DAILY [facility] Last Admin: 08/18/18 10:01 Dose: 40 mg Simethicone (Mylicon) 80 mg PO Q8H PRN PRN PRN Reason: Heart burn Last Admin: 08/18/18 00:56 Dose: 80 mg Sodium Chloride () 5 - 15 ml IV UD PRN PRN Reason: SALINE FLUSH Zolpidem Tartrate (Ambien (Generic)) 5 mg PO QHS PRN PRN PRN Reason: INSOMNIA Medical Necessity - Tobacco Use Smoking Status: Former smoker Tobacco Use: Cigarettes Assessment/Plan All Active Problems (Last Reviewed 08/17/18 @ 20:24 by Gerardo Gates MD) Abnormal CT of the chest (Acute) Lower gastrointestinal bleeding (Acute) Left sided colitis (Acute) 1. Acute on chronic COPD exacerbation with possible acute bronchitis secondary to a virus?chest pain -On examination she was on room air and doing well -She still has some of the pain in her chest from coughing but states that this is gotten a little bit better. -We will continue with DuoNeb, she is only on albuterol as needed -She also has a possible UTI, she was started on Levaquin for possible pneumonia and to cover any urine while the urine culture is pending -Initial troponin rule out was normal and her stress test was canceled as this was felt to be mostly pulmonary in origin. -Prior to this chest pain she had been having what sounds like a viral syndrome with nasal congestion and runny nose and cough and sputum production and sore throat and therefore this chest pain is more than likely costochondritis 2. HLD/HTN -Stable -continue with her home medications 3. Hypokalemia?resolved 4. Hypothyroidism -Stable -Continue with Synthroid 5. Anxiety -Stable -She is on Xanax as needed 6. GERD -Stable -Continue with Protonix DVT: Lovenox Code Visit OBSV E&M: 90662 Initial observation care L2
--- NOTE | 2018-08-18 13:01 | PN_ITS ---
Subjective: States she is feeling a little bit better though has not slept well continues to have some myalgias that she has been experiencing a couple days prior to admission. Vitals/I&O's: Vital Signs Temp Pulse Resp BP Pulse Ox 98.1 F 100 18 133/53 H 98 08/18/18 11:29 08/18/18 11:29 08/18/18 11:29 08/18/18 11:29 08/18/18 11:29 Oxygen Flow Rate (L/min) 2 Oxygen Delivery Method Nasal Cannula Weight: 143 lb 15.39 oz Body Mass Index (BMI) 27.1 Intake and Output for Last 24 Hours 08/16/18 08/17/18 08/18/18 23:59 23:59 23:59 Intake Total 518 / 518 Balance 518 / 518 General: Alert, Oriented x3, Cooperative, No apparent distress HEENT: Atraumatic, PERRLA, EOMI, Normocephalic Oral: Moist Mucosa Neck: Supple, No JVD, Trachea Midline Lungs: Clear to auscultation, Normal air movement, No rhonchi, No wheeze, No rales, Diminished Cardiovascular: Regular rate, Regular Rhythm, Normal S1, Normal S2, No murmurs Abdomen: Soft, Non Tender, Non-Distended, No Hepato-splenomegaly Extremities: No edema, Capillary Refill Less than 3 Seconds Skin: No rashes, No breakdown Neurological: Neuro grossly intact, Sensory exam intact to light touch and pain Psych/Mental Status: Normal Affect, Appropriate Microbiology Past 72 Hours 08/17/18 15:55 Mucosa - Nasopharyngeal Influenza Types A,B Direct FA ([place]) - Final Laboratory Results 08/17/18 18:10: WBC 9.7, RBC 4.97, Hgb 14.9, Hct 44.9, MCV 90.3, MCH 30.0, MCHC 33.2, RDW 14.0, RDW Differential 45.8 H, Plt Count 269, MPV 10.1, Immature Gran % (Auto) 0.100, Neut % (Auto) 77.0 H, Lymph % (Auto) 18.1 L, [place] % (Auto) 4.0, Eos % (Auto) 0.6, Baso % (Auto) 0.2, Absolute Neuts (auto) 7.5, Absolute Lymphs (auto) 1.76, Total Counted Not Reportable 08/17/18 18:10: D-Dimer Quant (PE/DVT) 0.49 08/17/18 18:10: Sodium 138, Potassium 3.0 L, Chloride 103, Carbon Dioxide 24.0, Anion Gap 11, BUN 13, Creatinine 0.91, Estim Creat Clear Calc 44.03, Est GFR (MDRD) Af Amer 79, Est GFR (MDRD) Non-Af 65, BUN/Creatinine Ratio 14.3, Glucose 154 H, Calcium 9.2, Troponin I < 0.015 08/17/18 21:40: Troponin I < 0.015 08/18/18 00:36: Troponin I < 0.015 08/18/18 05:58: Sodium 142, Potassium 4.4, Chloride 112 H, Carbon Dioxide 23.0, Anion Gap 7, BUN 12, Creatinine 0.95, Estim Creat Clear Calc 42.17, Est GFR (MDRD) Af Amer 75, Est GFR (MDRD) Non-Af 62, BUN/Creatinine Ratio 12.7, Glucose 90, Calcium 8.4 L, Triglycerides 146, Cholesterol 122, LDL Cholesterol 45, VLDL Cholesterol 29, HDL Cholesterol 48 08/18/18 05:58: PT 14.1, INR 1.1, APTT 36.6 H 08/18/18 05:58: WBC 5.0, RBC 4.14 L, Hgb 12.0, Hct 37.1, MCV 89.6, MCH 29.0, MCHC 32.3, RDW 14.4, RDW Differential 46.5 H, Plt Count 188, MPV 10.3, Immature Gran % (Auto) 0.000, Neut % (Auto) 78.6 H, Lymph % (Auto) 10.7 L, [place] % (Auto) 10.1 H, Eos % (Auto) 0.4, Baso % (Auto) 0.2, Absolute Neuts (auto) 3.9, Absolute Lymphs (auto) 0.53 L, Total Counted Not Reportable, Differential Comment SCANNED 08/18/18 06:55: Urine Color Reyna, Urine Clarity Sl. Cloudy, Urine pH 5.0, Ur Specific [place] 1.020, Urine Protein 15 H, Urine Glucose (UA) Normal, Urine Ketones 5 H, Urine Occult Blood 10 H, Urine Nitrite Negative, Urine Bilirubin 1 H, Urine Urobilinogen 1 H, Ur Leukocyte Esterase 25 H, Urine RBC 0-5 SEEN, Urine WBC 0-5 SEEN, Ur Squamous Epith Cells 0-5 SEEN, Urine Bacteria RARE, Urine Mucus 2+ 08/18/18 07:04: Lactic Acid 1.5 Current Medications Acetaminophen (Tylenol) 650 mg PO Q6H PRN PRN PRN Reason: PAIN Last Admin: 08/18/18 07:26 Dose: 650 mg Albuterol Sulfate (Ventolin Aerosols) 2.5 mg INHALATION Q2H PRN PRN PRN Reason: SHORTNESS OF BREATH Albuterol/Ipratropium (Duoneb) 3 ml INHALATION Q4H.RT [facility] Last Admin: 08/18/18 11:30 Dose: Not Given Alprazolam (Xanax) 0.5 mg PO QHS PRN PRN PRN Reason: ANXIETY Amlodipine Besylate (Norvasc) 10 mg PO DAILY [facility] Last Admin: 08/18/18 11:35 Dose: 10 mg Aspirin (Ecotrin) 81 mg PO DAILY@0800 [facility] Last Admin: 08/18/18 10:01 Dose: 81 mg Atorvastatin Calcium (Lipitor) 10 mg PO QHS [facility] Clonidine (Catapres) 0.1 mg PO Q6H PRN PRN PRN Reason: SBP > 160 Enoxaparin Sodium (Lovenox) 40 mg SC DAILY@1000 [facility] Last Admin: 08/18/18 10:02 Dose: 40 mg Guaifenesin (Mucinex) 1,200 mg PO BID [facility] Last Admin: 08/18/18 10:01 Dose: 1,200 mg Guaifenesin/Codeine Phosphate (Robitussin Ac) 5 ml PO Q6H PRN PRN PRN Reason: COUGH Last Admin: 08/18/18 00:57 Dose: 5 ml Sodium Chloride () 1,000 mls @ 100 mls/hr IV .Q10H [facility] Stop: 08/18/18 16:54 Last Admin: 08/18/18 09:39 Dose: 100 mls/hr Levofloxacin (Levaquin Iv) 750 mg in 150 mls @ 100 mls/hr IV Q48 [facility] Last Admin: 08/18/18 09:39 Dose: 100 mls/hr Levothyroxine Sodium (Synthroid) 50 mcg PO DAILY@0600 [facility] Last Admin: 08/18/18 06:26 Dose: 50 mcg Magnesium Hydroxide (Milk Of Magnesia) 30 ml PO DAILY PRN PRN Reason: Constipation Nitroglycerin (Nitrostat) 0.4 mg SUBLINGUAL Q5M PRN PRN Reason: CHEST PAIN Ondansetron HCl (Zofran) 4 mg IV Q8H PRN PRN PRN Reason: NAUSEA Pantoprazole Sodium (Protonix) 40 mg PO DAILY [facility] Last Admin: 08/18/18 10:01 Dose: 40 mg Simethicone (Mylicon) 80 mg PO Q8H PRN PRN PRN Reason: Heart burn Last Admin: 08/18/18 00:56 Dose: 80 mg Sodium Chloride () 5 - 15 ml IV UD PRN PRN Reason: SALINE FLUSH Zolpidem Tartrate (Ambien (Generic)) 5 mg PO QHS PRN PRN PRN Reason: INSOMNIA Medical Necessity - Tobacco Use Smoking Status: Former smoker Tobacco Use: Cigarettes Assessment/Plan All Active Problems (Last Reviewed 08/17/18 @ 20:24 by Gerardo Gates MD) Abnormal CT of the chest (Acute) Lower gastrointestinal bleeding (Acute) Left sided colitis (Acute) 1. Acute on chronic COPD exacerbation with possible acute bronchitis secondary to a virus?chest pain -On examination she was on room air and doing well -She still has some of the pain in her chest from coughing but states that this is gotten a little bit better. -We will continue with DuoNeb, she is only on albuterol as needed -She also has a possible UTI, she was started on Levaquin for possible pneumonia and to cover any urine while the urine culture is pending -Initial troponin rule out was normal and her stress test was canceled as this was felt to be mostly pulmonary in origin. -Prior to this chest pain she had been having what sounds like a viral syndrome with nasal congestion and runny nose and cough and sputum production and sore throat and therefore this chest pain is more than likely costochondritis 2. HLD/HTN -Stable -continue with her home medications 3. Hypokalemia?resolved 4. Hypothyroidism -Stable -Continue with Synthroid 5. Anxiety -Stable -She is on Xanax as needed 6. GERD -Stable -Continue with Protonix DVT: Lovenox Code Visit OBSV E&M: 47835 Initial observation care L2
--- NOTE | 2018-08-18 13:28 | CHAPLAIN ---
Type of Pastoral Visit _x__ Initial Visit ___ Follow-up Visit ___ On-call Visit ___ General Patient Visit ___ Spiritual Assessment ___ Family Conference ___ Bereavement ___ Rapid Response ___ Code Blue ___ Other (describe below) Pastoral Care Referral From _x__ Patient ___ Family ___ Nurse ___ Physician ___ [employer] ___ Agriculture Research Director ___ Other (describe below) Sacrament/Intervention _x__ Active listening ___ Anointing ___ Mu-Ism ___ Bereavement ___ Communion _x__ Julieta exploration ___ ___ Life review _x__ Prayer ___ Reconciliation ___ Sacrament of Sick _x__ Supportive presence ___ Wedding ___ Other (describe below) Pastoral Comments patient shared a concern over not being able to find a parking spot last night in ED parking lot when she could hardly breathe; pt said that nursing care has been outstanding and offered an admission that she might have been rude to people; pt reports feeling some better today and welcomes the visit and a prayer; pt says that she lives alone but has good family support except that they all work
[2018-08-18] MEDS: cloNIDine HCl 0.1 MG Tablet PO (19:03)
[2018-08-18] MEDS: Atorvastatin Calcium 10 MG Tablet PO (21:56)
[2018-08-19] VITALS (8 sets, daily range): BP systolic 149–151; BP diastolic 56–64; PULSE 70–89; RESP 18; TEMP 36.8–37.2; O2SAT 91–95
[2018-08-19] MEDS: Acetaminophen 325 MG Tablet 650 MG PO ×2 (03:50→09:53)
[2018-08-19] MEDS: Levothyroxine 50 MCG Tablet PO (05:26)
[2018-08-19 06:56] LABS: Anion Gap 8 (5-15); BUN 8 mg/dL (7-18); Calcium,Total 8.3 mg/dL (8.5-10.1); Chloride 111 mmol/L (98-107); EST Glomerular Filtration Rate 76 mL/min (>60); Est Glom Filt Rate - Afr Amer 92 mL/min (>60); Estimated Creatinine Clearance 50.08 ml/min; Glucose 144 mg/dL (74-106); Potassium 3.7 mmol/L (3.5-5.1); Sodium Level 142 mmol/L (136-145)
[2018-08-19] MEDS: Ipratropium/Albuterol Sulfate 3 ML AMPUL.NEB INHALATION (07:26)
[2018-08-19] MEDS: amLODIPine 10 MG Tablet PO (09:19)
[2018-08-19] MEDS: guaiFENesin 1,200 MG Tablet 1200 MG PO (09:19)
[2018-08-19] MEDS: Aspirin E.C. 81 MG Tablet PO (09:19)
[2018-08-19] MEDS: Pantoprazole Sodium 40 MG Tablet PO (09:19)
[2018-08-19] MEDS: Enoxaparin 40 MG/0.4 ML Syringe SC (09:20)
--- NOTE | 2018-08-19 10:11 | NURSING ---
Student nurse charting reviewed.
--- NOTE | 2018-08-19 10:49 | DCINST_ITS ---
- Discharge Diagnoses Current Active Problems: Current Active and Chronic Problems (Last Reviewed 08/17/18 @ 20:24 by Gerardo Gates MD) COPD exacerbation (Chronic) You will use the following diet at home:: Cardiac Your food should be the consistency of: Regular Your liquids should be the consistency of: Regular/Thin Discharge Activity: Return to Normal Activity Call your doctor if you observe: Fever of 101 or Higher, Shortness of breath, Dizziness, Fainting spells, Swelling in the ankles, Chest pain, Increased palpitations (irregular heartbeat) Allergies/Adverse Reactions: Allergies doxycycline Allergy (Verified 08/17/18 15:29) Itching cephalexin Adverse Reaction (Verified 08/17/18 15:29) Other citalopram Adverse Reaction (Verified 08/17/18 15:29) Other metoclopramide [From Reglan] Adverse Reaction (Verified 08/17/18 15:29) Other morphine Adverse Reaction (Verified 08/17/18 15:29) Low blood pressure pregabalin Adverse Reaction (Verified 08/17/18 15:29) Other Medications to take at Discharge ALPRAZolam [Xanax] 0.5 mg PO PRN PRN 02/13/15 Felodipine [Plendil] 10 mg PO DAILY 02/13/15 Levothyroxine [Synthroid] 50 mcg PO DAILY 02/13/15 Atorvastatin Calcium [Lipitor] 10 mg PO QHS 08/17/17 Albuterol Sulfate [Ventolin Hfa] 1 - 2 puff INHALATION PRN PRN 03/24/18 Pantoprazole Sodium [Protonix] 40 mg PO DAILY #30 tab 03/28/18 Levofloxacin [Levaquin] 750 mg PO QODAY #2 tablet 08/19/18 The following prescriptions were given: Levofloxacin [Levaquin] 750 mg PO QODAY #2 tablet Primary Care Physician: Yadira Alston MD [Primary Care Provider] - Please follow up with your Primary Care Physician in: 3-5 days Test Results: Test results from this visit will be discussed in further detail at your follow- up appointment, if applicable.
--- NOTE | 2018-08-19 10:54 | DS.PCM_ITS ---
Discharge Date and Diagnosis Date of Admission: 08/17/18 Date of Discharge: 08/19/18 - Secondary Discharge Diagnosis Chronic Problems (Last Reviewed 08/17/18 @ 20:24 by Gerardo Gates MD) Breast density (Chronic) COPD exacerbation (Chronic) Fibromyalgia (Chronic) IBS (irritable bowel syndrome) (Chronic) Thoracic neuritis (Chronic) Segmental and somatic dysfunction of lumbar region (Chronic) Segmental and somatic dysfunction of thoracic region (Chronic) Thoracic back pain (Chronic) Non-small cell lung cancer (NSCLC) (Chronic) Acquired hypothyroidism (Chronic) Benign essential HTN (Chronic) Hypertriglyceridemia (Chronic) Odynophagia (Chronic) Hospital Course and Treatment Imaging Results: CXR: IMPRESSION: Normal x-ray examination of the chest. Consults: None Operations: None Procedures: None Summary of Care Provided: Per HPI: The patient is a 68 year old F with a significant history of COPD/asthma; IBS; fibromyalgia who presented to the emergency department with chest tightness that started on the same day of her admission. Her chest pain radiates to her left back. Her chest pain is aggravated with coughing. Associated with her symptoms is throat pain and productive cough of greenish sputum. Also patient has shortness of breath with mild exertion. ED nurse reports that patient was very short of breath with ambulation at the ED. She reports a chronic headache with vertigo for which she is scheduled to see her PCP on 08/21/2018. At emergency department patient was hypokalemic and she received potassium. Also she received a breathing treatment. Hospital Course: 1. Acute on chronic COPD exacerbation secondary to acute bronchitis with cos tochondritis/extremely mild sepsis secondary to questionable [id number] female presenting with chest pain which is aggravated with coughing. She stated that she started having a productive cough as well as a sore throat a couple days prior to admission and that she was getting short of breath with ambulation. Initially on exam she was found to have rhonchorous right breath sounds however with albuterol treatments she has been doing well. She was also started on Levaquin for possible pneumonia and possible UTI. Chest x-ray is negative for pneumonia and there are no abnormal lung sounds on exam these last 2 days. She does feel much better today and would like to go home. Unfortunately for some reason culture data is not back so we will discharge her with 2 more days of Levaquin 750 mg every 48 hours, and I will call her if she has culture positive UTI and Levaquin will not work. Cardiac workup was negative with a normal troponin, and she has significant pain to palpation which reproduces her chest pain exactly. 2. Her other medical diagnoses were evaluated and her home medications were continued where appropriate Objective: General: Alert, Oriented x3, Cooperative, No apparent distress HEENT: Atraumatic, PERRLA, EOMI, Normocephalic Oral: Moist Mucosa Neck: Supple, No JVD, Trachea Midline Lungs: Clear to auscultation, Normal air movement, No rhonchi, No wheeze, No rales, Diminished Cardiovascular: Regular rate, Regular Rhythm, Normal S1, Normal S2, No murmurs Abdomen: Soft, Non Tender, Non-Distended, No Hepato-splenomegaly Extremities: No edema, Capillary Refill Less than 3 Seconds Skin: No rashes, No breakdown Neurological: Neuro grossly intact, Sensory exam intact to light touch and pain Psych/Mental Status: Normal Affect, Appropriate - Physical Exam Vital Signs Temp Pulse Resp BP Pulse Ox 98.2 F 86 18 149/56 H 95 08/19/18 09:02 08/19/18 09:02 08/19/18 09:02 08/19/18 09:02 08/19/18 09:02 Oxygen Flow Rate (L/min) 2 Oxygen Delivery Method Room Air Weight: 143 lb 15.39 oz Body Mass Index (BMI) 27.1 Intake and Output for Last 24 Hours 08/17/18 08/18/18 08/19/18 23:59 23:59 23:59 Intake Total 1665 / 1665 1100 / 1100 Output Total 400 / 400 Balance 1265 / 1265 1100 / 1100 Microbiology Past 72 Hours 08/17/18 15:55 Respiratory Panel (PCR) - Final Interface Orders 08/17/18 15:55 Influenza Types A,B Direct FA ([place]) - Final Mucosa - Nasopharyngeal Laboratory Tests Past 24 Hrs 08/19/18 06:00 Sodium 142 Potassium 3.7 Chloride 111 H Carbon Dioxide 23.0 Anion Gap 8 BUN 8 Creatinine 0.80 Estim Creat Clear Calc 50.08 Est GFR (MDRD) Af Amer 92 Est GFR (MDRD) Non-Af 76 BUN/Creatinine Ratio 10.0 Glucose 144 H Calcium 8.3 L Discharge Activity: Return to Normal Activity Call your doctor if you observe: Fever of 101 or Higher, Shortness of breath, Dizziness, Fainting spells, Swelling in the ankles, Chest pain, Increased palpitations (irregular heartbeat) Home Medications: Medications to take at Discharge ALPRAZolam [Xanax] 0.5 mg PO PRN PRN 02/13/15 Felodipine [Plendil] 10 mg PO DAILY 02/13/15 Levothyroxine [Synthroid] 50 mcg PO DAILY 02/13/15 Atorvastatin Calcium [Lipitor] 10 mg PO QHS 08/17/17 Albuterol Sulfate [Ventolin Hfa] 1 - 2 puff INHALATION PRN PRN 03/24/18 Pantoprazole Sodium [Protonix] 40 mg PO DAILY #30 tab 03/28/18 Levofloxacin [Levaquin] 750 mg PO QODAY #2 tablet 08/19/18 Following Prescrptions Were Given to Patient: Levofloxacin [Levaquin] 750 mg PO QODAY #2 tablet Primary Care Physician: Yadira Alston MD [Primary Care Provider] - Please follow up with your Primary Care Physician in: 3-5 days Disposition: Home Minutes spent on discharge:: 35 Patient Condition:: Stable Medical Necessity - Tobacco Use Smoking Status: Former smoker Tobacco Use: Cigarettes Meaningful Use Info Meaningful Use Diagnoses (Choose all that apply): None applicable Code Visit Inpatient E&M: 39535 Disch Hosp
--- NOTE | 2018-08-21 14:09 | CASEMGMT ---
FRANCISCO HEIN DC PHONE CALL DC DATE: 08/19/18 DC Disposition: Home LACE/STRATA: 03/18 Intro role of CM to patient via phone. Pt states she is still not feeling well and feels weak. Reviewed symptoms listed on dc instructions and pt does not have shortness of breath, fever, dizziness. Pt states she is just tired. FRANCISCO HEIN reviewed for her to call her physician's nurse if symptoms worsen. F/U appointment is this . Pt is taking her prescriptions as prescribed, including antibiotic. No care improvement suggestions were given. Stephen BARILLASN RN ACM
== END 2018-08-19 11:36 | disposition home or self-care (01) | DRG 190 ==
LOC: ED 17:39 → PCU 19:37
PROVIDERS: Admitting Provider Hospitalist; Emergency Provider Emergency Medicine; Family Provider Family Medicine; PCP Family Medicine; Visit Provider Family Medicine
DX: J44.0 Chronic obstructive pulmonary disease with (acute) lower respiratory infection (principal); A41.9 Sepsis, unspecified organism; J45.901 Unspecified asthma with (acute) exacerbation; N39.0 Urinary tract infection, site not specified; E87.6 Hypokalemia; J44.1 Chronic obstructive pulmonary disease with (acute) exacerbation; J20.9 Acute bronchitis, unspecified; M94.0 Chondrocostal junction syndrome [Tietze]; E78.5 Hyperlipidemia, unspecified; E03.9 Hypothyroidism, unspecified; K21.9 Gastro-esophageal reflux disease without esophagitis; I10 Essential (primary) hypertension; K58.9 Irritable bowel syndrome, unspecified; R51 Headache; R42 Dizziness and giddiness; Z87.891 Personal history of nicotine dependence
CPT/HCPCS: 36415; 71046; 80048; 80061; 81001; 83605; 84484; 85025; 85379; 85610; 85730; 87040; 87086; 87088; 87633; 87804; 93005; 94640; 94668; 94760; 97161; 97165; 99285; J7030; A4216; J2405

== ENCOUNTER → 2018-09-01 | Outpatient (CLI) | payer MEDICARE, OTHER, SELFPAY ==
[2018-08-17 19:51] VITALS: BMI 27.1
--- NOTE | 2018-09-01 13:45 | MRI_ITS ---
We are attempting to reach GAGE SKAGGS to discuss findings. An addendum with communication details will be sent when the communication is complete. STUDY: MRI BRAIN WITH AND WITHOUT CONTRAST REASON FOR EXAM: Female, 68 years old. Facial pressure and periorbital pain TECHNIQUE: Standardized multiplanar fat and water weighted pulse sequences were obtained. 12 IV Dotarem was administered for the contrast portion of the examination. COMPARISON: CT of the brain on July 15, 2018. FINDINGS: Scattered periventricular white matter ischemic changes are seen without mass effect or restricted diffusion.. There is a heterogeneous mass in left temporal parietal region measuring approximately 3.68 x 2.58 cm demonstrating heterogeneous rim and septations and enhancement Chronic pontine ischemic changes on the right Normal bilateral basal ganglia. Normal thalami. There is no extra-axial fluid accumulation. Normal flow voids within the major intracranial circulation suggesting patency by spin echo criteria. Normal venous enhancement. There is no enhancing intra-axial or extra-axial abnormality. Normal sella turcica, pituitary gland, infundibular stalk, optic chiasm and hypothalamus. Normal tectal plate and pineal gland. Normal midbrain, and medulla. Normal cerebellum. Normal basal cisterns. Normal bilateral temporal bones. Normal bilateral internal auditory canals. Postsurgical changes of the orbits.. Mild left maxillary ethmoid and left sphenoid sinus disease.. Normal calvarium and skull base. Normal visualized soft tissue structures. Normal visualized upper cervical spine. MRI/Brain W/WO Contrast IMPRESSION: Enhancing mass in left temporal parietal region most likely representing solitary metastatic lesion. Primary neoplasm not excluded Periventricular white matter ischemic changes without evidence for acute infarct. Electronically Signed: Jus Davila MD at 16:09 EDT , Service support ,
== END | disposition home or self-care (01) ==
LOC: MRI 13:01
PROVIDERS: Family Provider Family Medicine; PCP Family Medicine; Referring Provider Family Medicine; Visit Provider Family Medicine
DX: R51 Headache (principal)
CPT/HCPCS: 70553; A9575

== ENCOUNTER 2018-09-22 14:27 | Inpatient (IN) | payer MEDICARE, OTHER, SELFPAY ==
[2018-08-17 19:51] VITALS: BMI 27.1
[2018-09-22 14:31] VITALS: BP 160/75; PULSE 72; RESP 18; TEMP 36.6; O2SAT 93; BMI 26.9; BMI 27.0
--- NOTE | 2018-09-22 15:24 | PCM.RU.PYE ---
Admission Information Status Changes from Prescreening?: No changes Identified Actual Problem List:: Mobility Impaired, Self Care Deficit, Ineffective Communication Potential Problem List:: DVT, Bleeding, Infection, UTI, Aspiration, Falls, Skin Integrity, Depression Risk of Complications DVT: LMWH, MONIK Hose, Sequential Compression Device Bleeding: Monitor Lab Values, Nursing to Teach Precautions for anti-coagulation therapy., Wound, if applicable, to be assessed every shift., Stroke patients assessed for lethargy or change in status. Infection: Clinical Staff to Monitor for S/S of infection:, S/S of infection include fever, redness, warmth, etc. Urinary Tract Infection: Monitor for frequency, burning, discomfort, or incontinence., Nursing will obtain urine sample for urinalysis and C&S when ordered. Aspiration: Clinical staff will monitor for coughing, drooling, congestion., Speech will evaluate swallowing and dsyphasia., Nursing will monitor patient swallowing during meals. Falls: Patient will be evaluated for Fall Precautions, Patient will be placed on Fall Precautions as indicated per protocol. Skin Breakdown: Nursing will assess skin daily using assessment tool., Nursing will place on Skin Breakdown Precautions as indicated. Pain: Clinical staff will assess patient's pain level per protocol., Medications will be given, if needed, and the pain level reassessed., Other methods: Massage, distraction, decrease stimulus, etc. used PRN. Plan of Care Patient requires physician specializing in physical medicine and rehab oversight to provide close medical supervision of rehab issues including: Pain Management, Sleep Problems, Bowel and Bladder, Medical and co-morbidity Management, DVT prophylaxis, Rehabilitation Leadership, Coordination of treatment team Patient needs Physical Therapy: For a minimum of 1 hour, At least 5 out of 7 days Patient needs Physical Therapy to improve:: Mobility, Mobility, Mobility, Strengthening, Transfers, Stretching, ROM, Endurance, Stairs, Gait, Balance Patient needs Occupational Therapy: For a minimum of 1 hour, At least 5 out of 7 days Patient needs Occupational Therapy to improve ADL's incl.: Eating, Grooming, Bathing, Dressing, Toileting, Toilet transfers, Community Reintegration, Higher functioning activities, Household tasks, Adaptive Equipment, Splinting, Other activities as determined Patient requires speech therapy: For a minimum of 1 hour, At least 5 out of 7 days Patient requires speech therapy for: Swallowing, Cognition, Language Skills, Compensatory Strategies Patient requires 06/12 Rehabilitation Nursing for: Pain Issues, Identifying and preventing risk factors, Monitoring and reporting current medical conditions, Assisting with ambulation, transfer, and all ADL's, Teaching patients about disease process and medications, Family teaching, Providing safe environment, Bowel and Bladder Issues, Skin integrity, Medication Management Patient needs Rn Clinical Documentation/ Case Management for: Discharge Planning, Arranging Home Equipment or Services, Family Interventions Patient needs Dietary and Nutrition Services for: Adequate Nutrition, Nutritional Supplements, Nutritional Education Goals Patient will remain: free from falls, or injury at time of discharge. Patient will perform bed mobility at: MOD I level of assist. Patient will complete transfers from bed to chair at: MOD I level of assist. Patient will ambulate: 100 feet, with MOD I assist, with LRD Patient will complete upper body dressing at: MOD I level of assist. Patient will complete lower body dressing at: MOD I level of assist. Patient will complete toileting at: MOD I level of assist. Patient will perform bathing at: MOD I level of assist. Patient will complete grooming at: MOD I level of assist. Patient will complete home management skills at: MOD I level of assist. Patient will achieve: 12 stairs, at MOD I assist Patient will have pain level of: of 3 or less Patient's skin will: remain intact, free from infection. Patient will receive: adequate nutrition. Discharge Planning Pt Prognosis for Sig. Practical Improv. w/in Reasonable Time: Fair Estimated Length of stay (days): 16 Anticipated D/C Destination: Home Was Preadmission Assessment Accurate?: Yes
--- NOTE | 2018-09-22 15:37 | PCM.HP.COS ---
History of Present Illness Date of Admission: 09/22/18 The patient is a 68 year old F with PMH hypertension, hyperlipidemia, COPD, IHSAN, depression, anxiety, asthma, anemia, HX of lung cancer post thoracotomy in 2014 admitted to inpatient rehab on 09/22/2018 for debility secondary s/p left sided craniotomy for tumor resection for greater of 3 hours of therapy daily with a goal of returning back home at or near her prior level of functional dependence. Patient has had a history of headaches, word finding difficulties and blurred vision and a MRI was obtained which revealed enhancing lesion in the left posterior superior lobe with surrounding edema measuring 2.6 x 1.6 cm in size. Patient was referred to Dr. Aaron Lamar at [facility] where he performed a left-sided craniotomy with 5 ALA for tumor resection on September 19, 2018. Postoperative diagnosis per report malignant glioma. A postop CT scan was done on July 22, 20192018 Impression: postoperative changes at the craniotomy and within the margins of the left posterior temporal cortical resection site there were no evidence of focal infarction or hemorrhage or no evidence of residual or recurrent tumor. Prior to surgery patient lived at home alone she is independent with all of her mobility and ADL needs and was driving. Patient lives in 1 level house with first-floor set up and 2 steps to enter the house Has a flight of steps to the basement, which she does not usually go down to the basement. Past Medical History Past Medical History (Chronic Problems): Chronic Problems (Last Updated 09/22/18 @ 15:58 by Alyce Coffman NP-Annabella) Breast density (Chronic) COPD exacerbation (Chronic) Fibromyalgia (Chronic) IBS (irritable bowel syndrome) (Chronic) Thoracic neuritis (Chronic) Segmental and somatic dysfunction of lumbar region (Chronic) Segmental and somatic dysfunction of thoracic region (Chronic) Thoracic back pain (Chronic) Non-small cell lung cancer (NSCLC) (Chronic) Acquired hypothyroidism (Chronic) Benign essential HTN (Chronic) Hypertriglyceridemia (Chronic) Odynophagia (Chronic) Medical History: Medical History (Last Updated 09/22/18 @ 16:24 by ANGUS JaramilloC) IBS (irritable bowel syndrome) (Chronic) K58.9 Fibromyalgia (Chronic) M79.[address] of the chest (Acute) R93.89 Brain tumor D49.6 GERD (gastroesophageal reflux disease) E78.5 Hypothyroidism I10 Anemia D64.9 Asthma J45.909 IHSAN (obstructive sleep apnea) G47.33 Allergies doxycycline Allergy (Verified 08/17/18 15:29) Itching cephalexin Adverse Reaction (Verified 08/17/18 15:29) Other citalopram Adverse Reaction (Verified 08/17/18 15:29) Other metoclopramide [From Reglan] Adverse Reaction (Verified 08/17/18 15:29) Other morphine Adverse Reaction (Verified 08/17/18 15:29) Low blood pressure pregabalin Adverse Reaction (Verified 08/17/18 15:29) Other Home Medications: Ambulatory Orders Medication Instructions Recorded ALPRAZolam [Xanax] 0.25 mg PO Q8H PRN PRN 02/13/15 Felodipine [Plendil] 10 mg PO DAILY 02/13/15 Levothyroxine [Synthroid] 50 mcg PO DAILY 02/13/15 Atorvastatin Calcium [Lipitor] 10 mg PO QHS 08/17/17 Albuterol Sulfate [Ventolin Hfa] 1 - 2 puff INHALATION PRN PRN 03/24/18 Levofloxacin [Levaquin] 750 mg PO BID 09/22/18 Pantoprazole Sodium [Protonix] 40 mg PO DAILY 09/22/18 Surgical History: Surgical History (Last Updated 09/22/18 @ 15:59 by Alyce Coffman CHART CHANGER-C) Status post craniotomy (Acute) Z98.890 H/O cataract extraction Z98.49 bilateral S/P appendectomy Z90.49 S/P bilateral foot surgery Z98.890 S/P breast biopsy, bilateral Z98.890 with clip in left breast S/P cholecystectomy Z90.49 S/P partial lobectomy of lung Z90.2 left due to lung cancer S/P removal of ovarian cyst Z98.890, Z87.42 Surgical History: appendectomy, cholecystectomy, hysterectomy Psychiatric History: Anxiety, Depression MANAGER SHAREPOINT History: No pertinent MANAGER SHAREPOINT history Lives: Alone Smoking Status: Former smoker Alcohol: None Drugs: None - *Family History Paternal Family History: Family History (Last Reviewed 08/17/18 @ 20:24 by Gerardo Gates MD) Mother Diabetes Lung cancer CHF (congestive heart failure) Hypertension Father CHF (congestive heart failure) Hypertension Brother Hypertension Sister Hypertension Diabetes Aunt Breast cancer Other Heart disease History Items: No pertinent history Review of Systems Constitutional: Denies: Chills, Fever, Weight Change Eyes: Reports: - - c/o burning pain to right eye HEENT: Reports: Dysphasia. Denies: Difficulty Hearing, Difficulty Swallowing, Visual Changes Cardiovascular: Reports: Edema - c/o swelling to left cheek. Denies: Chest Pain, Palpitations Respiratory: Denies: Cough, Shortness of breath at rest, Sputum production Gastrointestinal: Reports: Abdominal Pain Genitourinary: Reports: - - stress incontinence Musculoskeletal: Denies: Joint Pain, Joint Tenderness Skin: Reports: - - DTR noted Neurological: Reports: Change in Speech. Denies: Blurred vision, Double vision, Seizures Psychiatric: Reports: Anxiety, Depression VTE Information - Inpt Only VTE Present on Admission: No VTE Mechan Device Prophylaxis: SCD's, Knee High MONIK Hose VTE Pharm Prophylaxis ordered?: Yes Patient Problems: Active and Suspected Problems (Last Updated 09/22/18 @ 15:59 by Alyce Coffman, CHART CHANGER-C) Status post craniotomy (Acute) - Physical Exam General: Alert, Cooperative, Disoriented - Only can state name, subject changed at times speech nonsensical HEENT: Atraumatic, PERRLA, - - upper right eye lid reddened Oral: - - thrush noted on tongue, left side of tip of tongue small ecchyomotic area Neck: Supple, No JVD Lungs: Clear to auscultation, Normal air movement Cardiovascular: Regular rate, Regular Rhythm Abdomen: Bowel Sounds Present, Soft, Non Tender Extremities: No clubbing, No cyanosis, Edema - left cheek, left temporal lobe Skin: Incision - sutures intact to left temporal lobe post cranitomy, dried drng around incision site, no redness or active drng, mild edema, - - ecchymotic area to left cheek and under chin Neurological: Cranial nerves II-XII grossly intact, Motor Exam 5/5 strength throughout, - - receptive aphasia and takes more time to process and follow simple commands Psych/Mental Status: Normal Affect - a/o x1 self only, has receptive aphasia, able to follow simple commands, - Vital Signs Temp Pulse Resp BP Pulse Ox 98 F 72 18 160/75 H 93 09/22/18 14:31 09/22/18 14:31 09/22/18 14:31 09/22/18 14:31 09/22/18 14:31 Oxygen Delivery Method Room Air Weight: 64.77 kg Body Mass Index (BMI) 26.9 Assessment/Plan All Active Problems (Last Updated 09/22/18 @ 15:58 by Alyce Coffman, CHART CHANGER-C) Status post craniotomy (Acute) Abnormal CT of the chest (Acute) Lower gastrointestinal bleeding (Acute) Left sided colitis (Acute) The patient is a 68 year old F with PMH hypertension, hyperlipidemia, COPD, IHSAN, depression, anxiety, asthma, anemia, hypothyroidism, GERD, HX of lung cancer post thoracotomy in 2014 admitted to inpatient rehab on 09/22/2018 for debility secondary s/p left sided craniotomy for tumor resection for greater of 3 hours of therapy daily with a goal of returning back home at or near her prior level of functional dependence. Patient has had a history of headaches, word finding difficulties and blurred vision and a MRI was obtained which revealed enhancing lesion in the left posterior superior lobe with surrounding edema measuring 2.6 x 1.6 cm in size. Patient was referred to Dr. Aaron Lamar at [facility] where he performed a left-sided craniotomy with 5 ALA for tumor resection on September 19, 2018. Postoperative diagnosis per report malignant glioma. A postop CT scan was done on July 22, 20192018 Impression: postoperative changes at the craniotomy and within the margins of the left posterior temporal cortical resection site there were no evidence of focal infarction or hemorrhage or no evidence of residual or recurrent tumor. Prior to surgery patient lived at home alone she is independent with all of her mobility and ADL needs and was driving. Patient lives in 1 level house with first-floor set up and 2 steps to enter the house Has a flight of steps to the basement, which she does not usually go down to the basement. Plan - PT for mobility - OT for ADLs - ST for cognition/speech - Bowel protocol - Analgesics as needed - S/P craniotomy on dexamethasone taper, levetiracetam has appt on September with Dr. Lamar - HTN on felodipine - Anxiety on Xanax prn - Depression not on anything current - Hypothyroidism on levothyroxine - GERD on Protonix - Hyperlipidemia on atorvastatin - GI/DVT prophylaxis on Protonix/Heparin 5,000 SQ TID, knee high teds, SCDs, - Fall precautions - Further medical management per hospitalist recommendation, hospitalist consult - F/U with PCP and Neurosurgeon
--- NOTE | 2018-09-22 15:41 | HP.PCM.COS_ITS ---
History of Present Illness Date of Admission: 09/22/18 The patient is a 68 year old F with PMH hypertension, hyperlipidemia, COPD, IHSAN, depression, anxiety, asthma, anemia, HX of lung cancer post thoracotomy in 2014 admitted to inpatient rehab on 09/22/2018 for debility secondary s/p left sided craniotomy for tumor resection for greater of 3 hours of therapy daily with a goal of returning back home at or near her prior level of functional dependence. Patient has had a history of headaches, word finding difficulties and blurred v ision and a MRI was obtained which revealed enhancing lesion in the left posterior superior lobe with surrounding edema measuring 2.6 x 1.6 cm in size. Patient was referred to Dr. Aaron Lamar at [facility] where he performed a left-sided craniotomy with 5 ALA for tumor resection on September 19, 2018. Postoperative diagnosis per report malignant glioma. A postop CT scan was done on July 22, 20192018 Impression: postoperative changes at the craniotomy and within the margins of the left posterior temporal cortical resection site there were no evidence of focal infarction or hemorrhage or no evidence of residual or recurrent tumor. Prior to surgery patient lived at home alone she is independent with all of her mobility and ADL needs and was driving. Patient lives in 1 level house with first-floor set up and 2 steps to enter the house Has a flight of steps to the basement, which she does not usually go down to the basement. Past Medical History Past Medical History (Chronic Problems): Chronic Problems (Last Updated 09/22/18 @ 15:58 by Alyce Coffman NP-C) Breast density (Chronic) COPD exacerbation (Chronic) Fibromyalgia (Chronic) IBS (irritable bowel syndrome) (Chronic) Thoracic neuritis (Chronic) Segmental and somatic dysfunction of lumbar region (Chronic) Segmental and somatic dysfunction of thoracic region (Chronic) Thoracic back pain (Chronic) Non-small cell lung cancer (NSCLC) (Chronic) Acquired hypothyroidism (Chronic) Benign essential HTN (Chronic) Hypertriglyceridemia (Chronic) Odynophagia (Chronic) Medical History: Medical History (Last Updated 09/22/18 @ 16:24 by Alyce Coffman NP-C) IBS (irritable bowel syndrome) (Chronic) K58.9 Fibromyalgia (Chronic) M79.[address] of the chest (Acute) R93.89 Brain tumor D49.6 GERD (gastroesophageal reflux disease) E78.5 Hypothyroidism I10 Anemia D64.9 Asthma J45.909 IHSAN (obstructive sleep apnea) G47.33 Allergies doxycycline Allergy (Verified 08/17/18 15:29) Itching cephalexin Adverse Reaction (Verified 08/17/18 15:29) Other citalopram Adverse Reaction (Verified 08/17/18 15:29) Other metoclopramide [From Reglan] Adverse Reaction (Verified 08/17/18 15:29) Other morphine Adverse Reaction (Verified 08/17/18 15:29) Low blood pressure pregabalin Adverse Reaction (Verified 08/17/18 15:29) Other Home Medications: Ambulatory Orders Medication Instructions Recorded ALPRAZolam [Xanax] 0.25 mg PO Q8H PRN PRN 02/13/15 Felodipine [Plendil] 10 mg PO DAILY 02/13/15 Levothyroxine [Synthroid] 50 mcg PO DAILY 02/13/15 Atorvastatin Calcium [Lipitor] 10 mg PO QHS 08/17/17 Albuterol Sulfate [Ventolin Hfa] 1 - 2 puff INHALATION PRN PRN 03/24/18 Levofloxacin [Levaquin] 750 mg PO BID 09/22/18 Pantoprazole Sodium [Protonix] 40 mg PO DAILY 09/22/18 Surgical History: Surgical History (Last Updated 09/22/18 @ 15:59 by Alyce Coffman, HYDROGEN PLANT OPERATIONS MANAGER-C) Status post craniotomy (Acute) Z98.890 H/O cataract extraction Z98.49 bilateral S/P appendectomy Z90.49 S/P bilateral foot surgery Z98.890 S/P breast biopsy, bilateral Z98.890 with clip in left breast S/P cholecystectomy Z90.49 S/P partial lobectomy of lung Z90.2 left due to lung cancer S/P removal of ovarian cyst Z98.890, Z87.42 Surgical History: appendectomy, cholecystectomy, hysterectomy Psychiatric History: Anxiety, Depression SURGICAL PHYSICIAN ASSISTANT History: No pertinent SURGICAL PHYSICIAN ASSISTANT history Lives: Alone Smoking Status: Former smoker Alcohol: None Drugs: None - *Family History Paternal Family History: Family History (Last Reviewed 08/17/18 @ 20:24 by Gerardo Gates MD) Mother Diabetes Lung cancer CHF (congestive heart failure) Hypertension Father CHF (congestive heart failure) Hypertension Brother Hypertension Sister Hypertension Diabetes Aunt Breast cancer Other Heart disease History Items: No pertinent history Review of Systems Constitutional: Denies: Chills, Fever, Weight Change Eyes: Reports: - - c/o burning pain to right eye HEENT: Reports: Dysphasia. Denies: Difficulty Hearing, Difficulty Swallowing, Visual Changes Cardiovascular: Reports: Edema - c/o swelling to left cheek. Denies: Chest Pain, Palpitations Respiratory: Denies: Cough, Shortness of breath at rest, Sputum production Gastrointestinal: Reports: Abdominal Pain Genitourinary: Reports: - - stress incontinence Musculoskeletal: Denies: Joint Pain, Joint Tenderness Skin: Reports: - - DTR noted Neurological: Reports: Change in Speech. Denies: Blurred vision, Double vision, Seizures Psychiatric: Reports: Anxiety, Depression VTE Information - Inpt Only VTE Present on Admission: No VTE Mechan Device Prophylaxis: SCD's, Knee High MONIK Hose VTE Pharm Prophylaxis ordered?: Yes Patient Problems: Active and Suspected Problems (Last Updated 09/22/18 @ 15:59 by Alyce Coffman, HYDROGEN PLANT OPERATIONS MANAGER-C) Status post craniotomy (Acute) - Physical Exam General: Alert, Cooperative, Disoriented - Only can state name, subject changed at times speech nonsensical HEENT: Atraumatic, PERRLA, - - upper right eye lid reddened Oral: - - thrush noted on tongue, left side of tip of tongue small ecchyomotic area Neck: Supple, No JVD Lungs: Clear to auscultation, Normal air movement Cardiovascular: Regular rate, Regular Rhythm Abdomen: Bowel Sounds Present, Soft, Non Tender Extremities: No clubbing, No cyanosis, Edema - left cheek, left temporal lobe Skin: Incision - sutures intact to left temporal lobe post cranitomy, dried drng around incision site, no redness or active drng, mild edema, - - ecchymotic area to left cheek and under chin Neurological: Cranial nerves II-XII grossly intact, Motor Exam 5/5 strength throughout, - - receptive aphasia and takes more time to process and follow simple commands Psych/Mental Status: Normal Affect - a/o x1 self only, has receptive aphasia, able to follow simple commands, - Vital Signs Temp Pulse Resp BP Pulse Ox 98 F 72 18 160/75 H 93 09/22/18 14:31 09/22/18 14:31 09/22/18 14:31 09/22/18 14:31 09/22/18 14:31 Oxygen Delivery Method Room Air Weight: 64.77 kg Body Mass Index (BMI) 26.9 Assessment/Plan All Active Problems (Last Updated 09/22/18 @ 15:58 by Alyce Coffman, HYDROGEN PLANT OPERATIONS MANAGER-C) Status post craniotomy (Acute) Abnormal CT of the chest (Acute) Lower gastrointestinal bleeding (Acute) Left sided colitis (Acute) The patient is a 68 year old F with PMH hypertension, hyperlipidemia, COPD, IHSAN, depression, anxiety, asthma, anemia, hypothyroidism, GERD, HX of lung cancer post thoracotomy in 2014 admitted to inpatient rehab on 09/22/2018 for debility secondary s/p left sided craniotomy for tumor resection for greater of 3 hours of therapy daily with a goal of returning back home at or near her prior level of functional dependence. Patient has had a history of headaches, word finding difficulties and blurred vision and a MRI was obtained which revealed enhancing lesion in the left posterior superior lobe with surrounding edema measuring 2.6 x 1.6 cm in size. Patient was referred to Dr. Aaron Lamar at [facility] where he performed a left-sided craniotomy with 5 ALA for tumor resection on September 19, 2018. Postoperative diagnosis per report malignant glioma. A postop CT scan was done on July 22, 20192018 Impression: postoperative changes at the craniotomy and within the margins of the left posterior temporal cortical resection site there were no evidence of focal infarction or hemorrhage or no evidence of residual or recurrent tumor. Prior to surgery patient lived at home alone she is independent with all of her mobility and ADL needs and was driving. Patient lives in 1 level house with first-floor set up and 2 steps to enter the house Has a flight of steps to the basement, which she does not us ually go down to the basement. Plan - PT for mobility - OT for ADLs - ST for cognition/speech - Bowel protocol - Analgesics as needed - S/P craniotomy on dexamethasone taper, levetiracetam has appt on September with Dr. Lamar - HTN on felodipine - Anxiety on Xanax prn - Depression not on anything current - Hypothyroidism on levothyroxine - GERD on Protonix - Hyperlipidemia on atorvastatin - GI/DVT prophylaxis on Protonix/Heparin 5,000 SQ TID, knee high teds, SCDs, - Fall precautions - Further medical management per hospitalist recommendation, hospitalist consult - F/U with PCP and Neurosurgeon
--- NOTE | 2018-09-22 17:03 | PN_ITS ---
Patient Problems: Active and Suspected Problems (Last Updated 09/22/18 @ 15:59 by Alyce Cfofman NP-C) Status post craniotomy (Acute) Subjective: Patient seen and examined. Transfer to rehab unit from [facility] following craniotomy/tumor resection 09/19/2018. Patient confused at time of assessment, most of speech incoherent. Family at bedside. Patient denies specific complaints. - Physical Exam General: Alert, Cooperative, No apparent distress, Confused HEENT: Atraumatic, PERRLA, EOMI, Normocephalic, - - Right eyelid ecchymosis. Neck: Supple, No JVD, Negative Carotid Bruits Lungs: Clear to auscultation, Normal air movement Cardiovascular: Regular rate, Regular Rhythm, Normal S1, Normal S2, No murmurs Abdomen: Bowel Sounds Present, Soft, Non Tender, Non-Distended Extremities: No clubbing, No cyanosis, No edema, Capillary Refill Less than 3 Seconds Skin: No rashes, No breakdown, - - Left temporal craniotomy incision sutures intact, dried blood. No signs of active infection. Musculoskeletal: No Tenderness to Palpation of Joints or Extremities Neurological: Cranial nerves II-XII grossly intact, - - Receptive/expressive aphasia. Psych/Mental Status: Normal Affect, Appropriate Vital Signs Temp Pulse Resp BP Pulse Ox 98 F 72 18 160/75 H 93 09/22/18 14:31 09/22/18 14:31 09/22/18 14:31 09/22/18 14:31 09/22/18 14:31 Oxygen Delivery Method Room Air Weight: 142 lb 12.694 oz Body Mass Index (BMI) 26.9 Medical Necessity - Tobacco Use Smoking Status: Former smoker Assessment/Plan All Active Problems (Last Updated 09/22/18 @ 15:59 by Alyce Coffman NP-C) Lower gastrointestinal bleeding (Acute) Left sided colitis (Acute) Abnormal CT of the chest (Acute) Status post craniotomy (Acute) 1. Debility, cognitive impairment following craniotomy/tumor resection 09/19/18 at [id number] with neurosurgery as scheduled. PT/OT/ST. on dexamethasone taper, levetiracetam. PRN pain regimen. 2. History of NSCLC status post left lower lobectomy- followed with Dr. Canas in the past. 3. Chronic COPD-no acute exacerbation. As needed albuterol aerosol. 4. Hypertension-continue felodipine regimen. 5. Hyperlipidemia-continue statin. 6. Hypothyroidism-continue Synthroid regimen. 7. Anxiety/depression-continue Xanax as needed regimen. 8. IHSAN 9. GERD-continue PPI. DVT prophylaxis-heparin subcu This patient was seen by LIN Collazo under the supervision of Dr. Chapa.
[2018-09-22 17:05] VITALS: O2SAT 94
[2018-09-22] MEDS: dexAMETHasone 4 MG Tablet 8 MG PO (18:52)
[2018-09-22] MEDS: Magnesium Hydroxide 30 ML UDC PO (18:52)
[2018-09-22] MEDS: NYSTATIN 500,000 UNIT/5 ML UDC 500000 UNIT PO ×2 (18:52→20:59)
[2018-09-22] MEDS: levETIRAcetam 500 MG Tablet PO (20:58)
[2018-09-22] MEDS: Atorvastatin Calcium 10 MG Tablet PO (20:58)
[2018-09-22] MEDS: Heparin Injection (Vial) 5,000 UNIT/ML VIAL 5000 UNIT SC (20:58)
[2018-09-22] MEDS: ALPRAZolam 0.25 MG Tablet PO (20:59)
[2018-09-22] MEDS: Senna/Docusate Sodium 1 Tablet 2 TABLET PO (20:59)
[2018-09-22 21:43] VITALS: BP 135/64; PULSE 70; RESP 18; TEMP 36.6; O2SAT 95
[2018-09-22 22:00] LABS: Bedside Glucose 143 mg/dL (70-110)
--- NOTE | 2018-09-23 00:54 | NURSING ---
Reviewed and agree with LPNs fims and handoff
[2018-09-23] MEDS: Levothyroxine 50 MCG Tablet PO (06:19)
[2018-09-23] MEDS: Heparin Injection (Vial) 5,000 UNIT/ML VIAL 5000 UNIT SC (06:19)
[2018-09-23 06:40] LABS: Bedside Glucose 164 mg/dL (70-110)
[2018-09-23 07:34] LABS: Absolute Lymphocyte Count 0.75 X10^3/ul (0.83-4.51); Absolute Neutrophil Count 11.2 X10^3/uL (2.0-7.7); Basophil# 0.01 X10^3/uL; Basophil% 0.1 % (0-1); Hematocrit 36.1 % (37-47); Hemoglobin 11.7 g/dl (12.0-15.0); Lymphocyte # 0.75 X10^3/ul (4.0); Lymphocyte % 5.9 % (19-41); Mean Corp Hgb Conc 32.4 g/gl (32-36); Mean Corpuscular Hgb 29.3 pg (27.0-32.0); Mean Corpuscular Volume 90.3 fL (81-99); Mean Platelet Vol. 11.3 fl (6.2-12.0); Monocyte# 0.63 X10^3/uL; Neutrophil # 11.24 X10^3/uL (2.7-7.7); Neutrophil % 88.5 % (47-70); Platelet Count 112 K/mm3 (150-450); RBC Distribution Width CV 14.7 % (11.6-14.6); RBC Distribution Width SD 48.1 fl (35.1-43.9); White Blood Count 12.7 K/mm3 (4.4-11.0)
[2018-09-23] MEDS: levETIRAcetam 500 MG Tablet PO ×2 (07:37→20:55)
[2018-09-23] MEDS: dexAMETHasone 4 MG Tablet 8 MG PO ×3 (07:37→17:19)
[2018-09-23] MEDS: Senna/Docusate Sodium 1 Tablet 2 TABLET PO ×2 (07:37→20:55)
[2018-09-23] MEDS: Pantoprazole Sodium 40 MG Tablet PO (07:37)
[2018-09-23] MEDS: amLODIPine 10 MG Tablet PO (07:37)
[2018-09-23] MEDS: Ondansetron ODT 4 MG Tablet PO (07:38)
[2018-09-23] MEDS: oxyCODONE 5 MG Tablet PO (07:38)
[2018-09-23 07:47] LABS: ALB/GLOB Ratio 0.6 RATIO (0.9-2.4); AST(SGOT) 29 U/L (15-37); Alanine Aminotransfer ALT/SGPT 83 U/L (13-56); Albumin, Serum 2.3 g/dL (3.2-5.0); Alkaline Phosphatase 69 U/L (45-117); Anion Gap 8 (5-15); BUN 24 mg/dL (7-18); BUN/Creat Ratio 45.2 RATIO (10-20); Calcium,Total 8.1 mg/dL (8.5-10.1); Chloride 104 mmol/L (98-107); Creatinine, Serum 0.53 mg/dL (0.55-1.02); EST Glomerular Filtration Rate 121 mL/min (>60); Est Glom Filt Rate - Afr Amer 147 mL/min (>60); Estimated Creatinine Clearance 40.07 ml/min; Globulin 3.8 g/dL (2.2-4.2); Glucose 149 mg/dL (74-106); Potassium 4.2 mmol/L (3.5-5.1); Protein, Total 6.1 g/dL (6.4-8.2); Sodium Level 138 mmol/L (136-145)
[2018-09-23 07:56] LABS: POSITIVE COUNT NO; POSITIVE DIFFERENTIAL NO; POSITIVE MORPHOLOGY NO
[2018-09-23 10:00] VITALS: BP 158/81; PULSE 69; RESP 18; TEMP 36.6; O2SAT 95
[2018-09-23] MEDS: NYSTATIN 500,000 UNIT/5 ML UDC 500000 UNIT PO ×4 (10:23→20:55)
[2018-09-23 12:15] LABS: Bedside Glucose 202 mg/dL (70-110)
[2018-09-23 17:16] LABS: Bedside Glucose 169 mg/dL (70-110)
[2018-09-23 21:20] LABS: Bedside Glucose 215 mg/dL (70-110)
[2018-09-23 22:00] VITALS: BP 143/69; PULSE 79; RESP 16; TEMP 36.6; O2SAT 94; O2SAT 97
[2018-09-23] MEDS: ALPRAZolam 0.25 MG Tablet PO (22:10)
--- NOTE | 2018-09-23 23:36 | NURSING ---
Dtr expressed concern about pt medication & stopped DIRECTOR MARKETING COMMUNICATIONS to discuss her issue. DIRECTOR MARKETING COMMUNICATIONS saw this nurse and relayed the concern. Nurse found Pt in recliner resting and dtr awakens pt to clarify xanax admin. Dtr also told pt that she would wake up pt since dtr took her own medication late. This nurse advised pt and dtr of importance for rest while recovering. (Dtr responded by saying that she is using reverse psychology with pt in telling pt she'd be waking her up.) Pt was repositioned into bed and closed her eyes after xanax admin. Staff will continue to monitor pt.
[2018-09-24] MEDS: Levothyroxine 50 MCG Tablet PO (06:38)
[2018-09-24 06:45] LABS: Bedside Glucose 156 mg/dL (70-110)
[2018-09-24 07:35] VITALS: BP 144/97; PULSE 66; RESP 16; TEMP 36.6; O2SAT 95
[2018-09-24] MEDS: Senna/Docusate Sodium 1 Tablet 2 TABLET PO ×2 (07:58→20:26)
[2018-09-24] MEDS: Pantoprazole Sodium 40 MG Tablet PO (07:59)
[2018-09-24] MEDS: levETIRAcetam 500 MG Tablet PO ×2 (07:59→20:27)
[2018-09-24] MEDS: dexAMETHasone 4 MG Tablet 8 MG PO ×2 (07:59→17:00)
[2018-09-24] MEDS: amLODIPine 10 MG Tablet PO (07:59)
[2018-09-24 08:34] LABS: AST(SGOT) 22 U/L (15-37); Alanine Aminotransfer ALT/SGPT 83 U/L (13-56)
[2018-09-24] MEDS: Enoxaparin 40 MG/0.4 ML Syringe SC (09:44)
[2018-09-24] MEDS: NYSTATIN 500,000 UNIT/5 ML UDC 500000 UNIT PO ×4 (09:45→20:27)
[2018-09-24] MEDS: Glycerin/Hypromellose/PEG400 15 ml Bottle 1 DRP EACH EYE (10:46)
[2018-09-24] MEDS: Acetaminophen 325 MG Tablet 650 MG PO ×2 (10:46→20:13)
[2018-09-24 12:15] LABS: Bedside Glucose 168 mg/dL (70-110)
[2018-09-24 16:41] LABS: Bedside Glucose 184 mg/dL (70-110)
[2018-09-24 19:19] VITALS: BP 150/74; PULSE 76; RESP 16; TEMP 36.4; O2SAT 95
--- NOTE | 2018-09-24 20:39 | NURSING ---
Dtr, AMANDA, Preeti is present in room this hs. Dtr stated that they will be restricting visitors to x2 at a time with 10 minute limits for pt recovery. Xanax was also discussed with nurse and pt expressed concern about taking the Xanax. Pt understands it is prescribed for anxiety PRN. Pt states that sounds good and she doesn't like taking it so will alert us to when she feels the need for it. Dtr also stated if her other sister is becomes too overbearing regarding the Xanax, staff is to remind her that she will be asked to leave. Pt was very relaxed this hs and spee.ch improvement exhibited in sentence form.
[2018-09-24 20:51] LABS: Bedside Glucose 200 mg/dL (70-110)
[2018-09-24 22:00] VITALS: PULSE 76; RESP 17; O2SAT 95
--- NOTE | 2018-09-25 05:55 | US_ITS ---
STUDY: ABDOMINAL ULTRASOUND - RIGHT UPPER QUADRANT REASON FOR VISIT: Female, 68 years old. Elevated liver function tests. TECHNIQUE: Ultrasound evaluation of the right upper quadrant was performed with real-time and static leon-scale imaging. TECHNICAL QUALITY: Adequate. Examination limited by bowel gas. COMPARISON: CT of abdomen and pelvis dated June 06, 2018. FINDINGS: Liver: The liver measures 13.2 cm. There is a heterogeneous echogenicity of the liver. The bile ducts are within normal limits. There is hepatic color flow. The direction of portal flow is hepatopetal. Tiny cyst is visible in the left lobe of liver measuring 6 mm Gallbladder: The patient is status post cholecystectomy. Common Bile Duct (C.B.D.): The common bile duct measures 4.8 mm. Pancreas: Normal size of the head and body of the pancreas. The pancreatic tail is not visualized secondary to bowel gas. There is normal echogenicity of the pancreas. There is no demonstrated pancreatic mass or cyst. Right Kidney: Normal size of the right kidney. The right kidney measures 9.5 x 5.0 x 5.0 cm. Normal renal cortex. The right cortex measures 1.5 cm. There is no demonstrated renal mass or cyst. There is no right hydronephrosis. US/Abdomen Limited IMPRESSION: 1. Status post cholecystectomy. 2. Mild hepatic steatosis. 3. Tiny hepatic cyst. 4. Nonvisualization of pancreatic tail. Electronically Signed: Thelma Salazar MD at 17:17 EDT , Service support ,
[2018-09-25 06:14] LABS: CPK Total, Creatine Kinase 38 U/L (26-192)
[2018-09-25] MEDS: Acetaminophen 325 MG Tablet 650 MG PO ×2 (06:28→16:10)
[2018-09-25] MEDS: Levothyroxine 50 MCG Tablet PO (06:29)
[2018-09-25 06:32] VITALS: O2SAT 95
[2018-09-25 07:00] LABS: Bedside Glucose 116 mg/dL (70-110)
[2018-09-25 08:05] VITALS: BP 143/75; PULSE 66; RESP 16; TEMP 36.8; O2SAT 96
[2018-09-25] MEDS: dexAMETHasone 4 MG Tablet 8 MG PO ×2 (08:11→16:11)
[2018-09-25] MEDS: Pantoprazole Sodium 40 MG Tablet PO (08:11)
[2018-09-25] MEDS: levETIRAcetam 500 MG Tablet PO ×2 (08:11)
[2018-09-25] MEDS: amLODIPine 10 MG Tablet PO (08:11)
[2018-09-25] MEDS: Senna/Docusate Sodium 1 Tablet 2 TABLET PO ×2 (08:11→22:09)
[2018-09-25] MEDS: Enoxaparin 40 MG/0.4 ML Syringe SC (09:13)
--- NOTE | 2018-09-25 10:40 | PCM.PN.NEU ---
Patient Problems: Active and Suspected Problems (Last Updated 09/22/18 @ 15:59 by Alyce Coffman, CHIEF ULTRASOUND TECHNOLOGIST-C) Status post craniotomy (Acute) Subjective: Per nursing, Dr. Hernandez ordered Abdominal U.S. d/t ALT level 83 and further lab work for today, patient is NPO. Patient is tolerating therapy well per therapist. Patient is able to state her name only and can follow simple commands, but needs extra time to process. - Physical Exam General: Alert, Cooperative - self only HEENT: Atraumatic, PERRLA Oral: - - thrush Neck: Supple, No JVD Lungs: Clear to auscultation, Normal air movement Cardiovascular: Regular rate, Regular Rhythm Abdomen: Bowel Sounds Present, Soft, Non Tender Extremities: No clubbing, No cyanosis, Edema - left temporal and minimal to left cheek Skin: Incision - post craniotomy-sutures intact to left temporal area without redness or drng, - - ecchymotic area to left cheek and under chin Musculoskeletal: No Tenderness to Palpation of Joints or Extremities Neurological: - - Cranial nerves II-XII grossly intact, Motor Exam 5/5 strength throughout, - - receptive aphasia and takes more time to process and follow simple commands Psych/Mental Status: Normal Affect, Appropriate, - - Normal Affect - a/o x1 self only, has receptive aphasia, able to follow simple commands Vital Signs Temp Pulse Resp BP Pulse Ox 98.2 F 66 16 143/75 H 96 09/25/18 08:05 09/25/18 08:05 09/25/18 08:05 09/25/18 08:05 09/25/18 08:05 Oxygen Delivery Method Room Air Weight: 64.7 kg Body Mass Index (BMI) 26.9 Intake and Output for Last 24 Hours 09/23/18 09/24/18 09/25/18 23:59 23:59 23:59 Output Total 150 / 150 Balance -150 / -150 Laboratory Tests Past 24 Hrs 09/25/18 09/25/18 09/25/18 05:20 05:20 05:20 Total Creatine Kinase 38 C-React Prot Ext Range 12.00 H SITA Screen Pending c-ANCA Antibody Pending p-ANCA Antibody Pending BRYCE-1 Antibody Pending SS-A/Ro IgG Antibody Pending SS-B/La IgG Antibody Pending Sm (Marsh) Antibody Pending [employer] Antibody Pending Scl-70 Scleroderma Ab Pending Double Strand DNA Ab Pending Centromere B Antibody Pending Anti-Mitochondrial Ab Pending Anti-Smooth Muscle Ab Pending Hepatitis A IgM Ab Pending Hep Bs Antigen Pending Hep B Core IgM Ab Pending Hepatitis C Ab (EIA) Pending 09/25/18 05:20 Total Creatine Kinase C-React Prot Ext Range SITA Screen c-ANCA Antibody p-ANCA Antibody BRYCE-1 Antibody SS-A/Ro IgG Antibody SS-B/La IgG Antibody Sm (Marsh) Antibody [employer] Antibody Scl-70 Scleroderma Ab Double Strand DNA Ab Centromere B Antibody Anti-Mitochondrial Ab Anti-Smooth Muscle Ab Hepatitis A IgM Ab Cancelled Hep Bs Antigen Cancelled Hep B Core IgM Ab Cancelled Hepatitis C Ab (EIA) Cancelled POC Glucose 09/25/18 09/24/18 09/24/18 06:51 20:44 16:27 POC Glucose 116 H 200 H 184 H 09/24/18 12:04 POC Glucose 168 H Medical Necessity - Tobacco Use Smoking Status: Former smoker Assessment/Plan All Active Problems (Last Updated 09/22/18 @ 15:59 by Alyce Coffman, CHIEF ULTRASOUND TECHNOLOGIST-C) Lower gastrointestinal bleeding (Acute) Left sided colitis (Acute) Abnormal CT of the chest (Acute) Status post craniotomy (Acute) The patient is a 68 year old F with PMH hypertension, hyperlipidemia, COPD, IHSAN, depression, anxiety, asthma, anemia, hypothyroidism, GERD, HX of lung cancer post thoracotomy in 2014 admitted to inpatient rehab on 09/22/2018 for debility secondary s/p left sided craniotomy for tumor resection for greater of 3 hours of therapy daily with a goal of returning back home at or near her prior level of functional dependence. Patient has had a history of headaches, word finding difficulties and blurred vision and a MRI was obtained which revealed enhancing lesion in the left posterior superior lobe with surrounding edema measuring 2.6 x 1.6 cm in size. Patient was referred to Dr. Aaron Lamar at [facility] where he performed a left-sided craniotomy with 5 ALA for tumor resection on September 19, 2018. Postoperative diagnosis per report malignant glioma. A postop CT scan was done on July 22, 20192018 Impression: postoperative changes at the craniotomy and within the margins of the left posterior temporal cortical resection site there were no evidence of focal infarction or hemorrhage or no evidence of residual or recurrent tumor. Prior to surgery patient lived at home alone she is independent with all of her mobility and ADL needs and was driving. Patient lives in 1 level house with first-floor set up and 2 steps to enter the house Has a flight of steps to the basement, which she does not usually go down to the basement. Plan - PT for mobility - OT for ADLs - ST for cognition/speech - Bowel protocol - Analgesics as needed - S/P craniotomy on dexamethasone taper, levetiracetam has appt on September with Dr. Lamar - HTN on felodipine - Anxiety on Xanax prn - Depression not on anything current - Hypothyroidism on levothyroxine - GERD on Protonix - Hyperlipidemia on atorvastatin - GI/DVT prophylaxis on Protonix/Heparin 5,000 SQ TID, knee high teds, SCDs, - Fall precautions - Further medical management per hospitalist recommendation, hospitalist consult - F/U with PCP and Neurosurgeon
--- NOTE | 2018-09-25 10:45 | PN.NEURO_ITS ---
Patient Problems: Active and Suspected Problems (Last Updated 09/22/18 @ 15:59 by Alyce Coffman, HUMAN RESOURCES RECEPTIONIST-C) Status post craniotomy (Acute) Subjective: Per nursing, Dr. Hernandez ordered Abdominal U.S. d/t ALT level 83 and further lab work for today, patient is NPO. Patient is tolerating therapy well per therapist. Patient is able to state her name only and can follow simple commands, but needs extra time to process. - Physical Exam General: Alert, Cooperative - self only HEENT: Atraumatic, PERRLA Oral: - - thrush Neck: Supple, No JVD Lungs: Clear to auscultation, Normal air movement Cardiovascular: Regular rate, Regular Rhythm Abdomen: Bowel Sounds Present, Soft, Non Tender Extremities: No clubbing, No cyanosis, Edema - left temporal and minimal to left cheek Skin: Incision - post craniotomy-sutures intact to left temporal area without redness or drng, - - ecchymotic area to left cheek and under chin Musculoskeletal: No Tenderness to Palpation of Joints or Extremities Neurological: - - Cranial nerves II-XII grossly intact, Motor Exam 5/5 strength throughout, - - receptive aphasia and takes more time to process and follow simple commands Psych/Mental Status: Normal Affect, Appropriate, - - Normal Affect - a/o x1 self only, has receptive aphasia, able to follow simple commands Vital Signs Temp Pulse Resp BP Pulse Ox 98.2 F 66 16 143/75 H 96 09/25/18 08:05 09/25/18 08:05 09/25/18 08:05 09/25/18 08:05 09/25/18 08:05 Oxygen Delivery Method Room Air Weight: 64.7 kg Body Mass Index (BMI) 26.9 Intake and Output for Last 24 Hours 09/23/18 09/24/18 09/25/18 23:59 23:59 23:59 Output Total 150 / 150 Balance -150 / -150 Laboratory Tests Past 24 Hrs 09/25/18 09/25/18 09/25/18 05:20 05:20 05:20 Total Creatine Kinase 38 C-React Prot Ext Range 12.00 H SITA Screen Pending c-ANCA Antibody Pending p-ANCA Antibody Pending BRYCE-1 Antibody Pending SS-A/Ro IgG Antibody Pending SS-B/La IgG Antibody Pending Sm (Marsh) Antibody Pending [employer] Antibody Pending Scl-70 Scleroderma Ab Pending Double Strand DNA Ab Pending Centromere B Antibody Pending Anti-Mitochondrial Ab Pending Anti-Smooth Muscle Ab Pending Hepatitis A IgM Ab Pending Hep Bs Antigen Pending Hep B Core IgM Ab Pending Hepatitis C Ab (EIA) Pending 09/25/18 05:20 Total Creatine Kinase C-React Prot Ext Range SITA Screen c-ANCA Antibody p-ANCA Antibody BRYCE-1 Antibody SS-A/Ro IgG Antibody SS-B/La IgG Antibody Sm (Marsh) Antibody [employer] Antibody Scl-70 Scleroderma Ab Double Strand DNA Ab Centromere B Antibody Anti-Mitochondrial Ab Anti-Smooth Muscle Ab Hepatitis A IgM Ab Cancelled Hep Bs Antigen Cancelled Hep B Core IgM Ab Cancelled Hepatitis C Ab (EIA) Cancelled POC Glucose 09/25/18 09/24/18 09/24/18 06:51 20:44 16:27 POC Glucose 116 H 200 H 184 H 09/24/18 12:04 POC Glucose 168 H Medical Necessity - Tobacco Use Smoking Status: Former smoker Assessment/Plan All Active Problems (Last Updated 09/22/18 @ 15:59 by Alyce Coffman, HUMAN RESOURCES RECEPTIONIST-C) Lower gastrointestinal bleeding (Acute) Left sided colitis (Acute) Abnormal CT of the chest (Acute) Status post craniotomy (Acute) The patient is a 68 year old F with PMH hypertension, hyperlipidemia, COPD, IHSAN, depression, anxiety, asthma, anemia, hypothyroidism, GERD, HX of lung cancer post thoracotomy in 2014 admitted to inpatient rehab on 09/22/2018 for debility secondary s/p left sided craniotomy for tumor resection for greater of 3 hours of therapy daily with a goal of returning back home at or near her prior level of functional dependence. Patient has had a history of headaches, word finding difficulties and blurred vision and a MRI was obtained which revealed enhancing lesion in the left posterior superior lobe with surrounding edema measuring 2.6 x 1.6 cm in size. Patient was referred to Dr. Aaron Lamar at [facility] where he performed a left-sided craniotomy with 5 ALA for tumor resection on September 19, 2018. Postoperative diagnosis per report malignant glioma. A postop CT scan was done on July 22, 20192018 Impression: postoperative changes at the craniotomy and within the margins of the left posterior temporal cortical resection site there were no evidence of focal infarction or hemorrhage or no evidence of residual or recurrent tumor. Prior to surgery patient lived at home alone she is independent with all of her mobility and ADL needs and was driving. Patient lives in 1 level house with first-floor set up and 2 steps to enter the house Has a flight of steps to the basement, which she does not usually go down to the basement. Plan - PT for mobility - OT for ADLs - ST for cognition/speech - Bowel protocol - Analgesics as needed - S/P craniotomy on dexamethasone taper, levetiracetam has appt on September with Dr. Lamar - HTN on felodipine - Anxiety on Xanax prn - Depression not on anything current - Hypothyroidism on levothyroxine - GERD on Protonix - Hyperlipidemia on atorvastatin - GI/DVT prophylaxis on Protonix/Heparin 5,000 SQ TID, knee high teds, SCDs, - Fall precautions - Further medical management per hospitalist recommendation, hospitalist consult - F/U with PCP and Neurosurgeon
[2018-09-25 11:26] LABS: Bedside Glucose 108 mg/dL (70-110)
--- NOTE | 2018-09-25 13:30 | NURSING ---
don message with Dr Lamar's (Neuro surgery) office in regards to pathology results.
--- NOTE | 2018-09-25 14:04 | PCM.PN.HOSP ---
Patient Problems: Active and Suspected Problems (Last Updated 09/22/18 @ 15:59 by Alyce Coffman, PHYSICIAN PRACTICE CONSULTANT-C) Status post craniotomy (Acute) Subjective: Denies any complaint. Vitals/I&O's: Vital Signs Temp Pulse Resp BP Pulse Ox 36.8 C 66 16 143/75 H 96 09/25/18 08:05 09/25/18 08:05 09/25/18 08:05 09/25/18 08:05 09/25/18 08:05 Oxygen Delivery Method Room Air Weight: 64.7 kg Body Mass Index (BMI) 26.9 Intake and Output for Last 24 Hours 09/23/18 09/24/18 09/25/18 23:59 23:59 23:59 Output Total 150 / 150 Balance -150 / -150 General: - - expressive aphasia. alert. NAD. afebrile Neck: No Nodes, Thyroid Normal Size and Texture Lungs: Clear to auscultation, Normal air movement, No rhonchi, No wheeze Cardiovascular: Regular rate, Regular Rhythm, Normal S1, Normal S2, No murmurs Abdomen: Bowel Sounds Present, Soft, Non Tender, Non-Distended, No Hepato-splenomegaly Extremities: No edema, No Calf Tenderness Psych/Mental Status: Normal Affect, Appropriate Laboratory Results 09/24/18 16:27: POC Glucose 184 H 09/24/18 20:44: POC Glucose 200 H 09/25/18 05:20: Total Creatine Kinase 38, C-React Prot Ext Range 12.00 H 09/25/18 05:20: SITA Screen Pending, BRYCE-1 Antibody Pending, SS-A/Ro IgG Antibody Pending, SS-B/La IgG Antibody Pending, Sm (Marsh) Antibody Pending, [employer]ARD Antibody Pending, Scl-70 Scleroderma Ab Pending, Double Strand DNA Ab Pending, Centromere B Antibody Pending, Anti-Mitochondrial Ab Pending 09/25/18 05:20: c-ANCA Antibody Pending, p-ANCA Antibody Pending, Anti-Smooth Muscle Ab Pending, Hepatitis A IgM Ab Pending, Hep Bs Antigen Pending, Hep B Core IgM Ab Pending, Hepatitis C Ab (EIA) Pending 09/25/18 05:20: Hepatitis A IgM Ab Cancelled, Hep Bs Antigen Cancelled, Hep B Core IgM Ab Cancelled, Hepatitis C Ab (EIA) Cancelled 09/25/18 06:51: POC Glucose 116 H 09/25/18 11:13: POC Glucose 108 Current Medications Acetaminophen (Tylenol) 650 mg PO Q6H PRN PRN PRN Reason: Mild Pain (0-3/10)/Headache Last Admin: 09/25/18 06:28 Dose: 650 mg Alprazolam (Xanax) 0.25 mg PO Q8H PRN PRN PRN Reason: ANXIETY Last Admin: 09/23/18 22:10 Dose: 0.25 mg Amlodipine Besylate (Norvasc) 10 mg PO DAILY [facility] Last Admin: 09/25/18 08:11 Dose: 10 mg Atorvastatin Calcium (Lipitor) 10 mg PO QHS [facility] Last Admin: 09/22/18 20:58 Dose: 10 mg Bisacodyl (Dulcolax) 10 mg RECTAL .PRN X 1 PRN PRN Reason: Constipation Dexamethasone (Decadron) 8 mg PO BIDCM [facility] Stop: 09/26/18 17:01 Last Admin: 09/25/18 08:11 Dose: 8 mg Dexamethasone (Decadron) 6 mg PO BIDCM [facility] Stop: 09/29/18 17:01 [facility]: 10/02/18 17:01 Dexamethasone ([facility]adron) [facility] Enoxaparin Sodium (Lovenox) 40 mg SC DAILY [facility] Last Admin: 09/25/18 09:13 Dose: 40 mg Levetiracetam (Keppra Tablet) 500 mg PO BID [facility] Last Admin: 09/25/18 08:11 Dose: 500 mg Levothyroxine Sodium (Synthroid) 50 mcg PO DAILY@0600 [facility] Last Admin: 09/25/18 06:29 Dose: 50 mcg Magnesium Hydroxide (Milk Of Magnesia) 30 ml PO .PRN X 1 PRN PRN Reason: Constipation Last Admin: 09/22/18 18:52 Dose: 30 ml Nutritional Formula (Lactose Free) (Ensure Enlive) 120 ml PO 4X/DAY [facility] Last Admin: 09/25/18 11:22 Dose: Not Given Nystatin (Nystatin) 500,000 unit PO 4X/DAY [facility] Last Admin: 09/25/18 11:22 Dose: Not Given Ondansetron HCl (Zofran Odt) 4 mg PO Q8H PRN PRN PRN Reason: NAUSEA Last Admin: 09/23/18 07:38 Dose: 4 mg Oxycodone HCl (Oxyir) 5 mg PO Q6H PRN PRN PRN Reason: SEVERE PAIN (6-02/22) Last Admin: 09/23/18 07:38 Dose: 5 mg Pantoprazole Sodium (Protonix) 40 mg PO DAILY [facility] Last Admin: 09/25/18 08:11 Dose: 40 mg Senna/Docusate Sodium (Senokot-S, Yulissa-Colace) 2 tablet PO BID [facility] Last Admin: 09/25/18 08:11 Dose: 2 tablet Medical Necessity - Tobacco Use Smoking Status: Former smoker Assessment/Plan All Active Problems (Last Updated 09/22/18 @ 15:59 by Alyce Coffman, PHYSICIAN PRACTICE CONSULTANT-C) Lower gastrointestinal bleeding (Acute) Left sided colitis (Acute) Abnormal CT of the chest (Acute) Status post craniotomy (Acute) 1. S/P left craniotomy malingant glioma follow up with Dr. Lamar at on the on Decadron taper Keppra for szr prophylaxis 2. DM2 exacerbated by steroids start moderate dosing SSI and monitor 4. VTE prophy: LMWH Code Visit Inpatient E&M: 18077 Subs Hosp L2
--- NOTE | 2018-09-25 14:08 | PN_ITS ---
Patient Problems: Active and Suspected Problems (Last Updated 09/22/18 @ 15:59 by Alyce Coffman, MEDICAL STAFF PHYSICIAN-C) Status post craniotomy (Acute) Subjective: Denies any complaint. Vitals/I&O's: Vital Signs Temp Pulse Resp BP Pulse Ox 36.8 C 66 16 143/75 H 96 09/25/18 08:05 09/25/18 08:05 09/25/18 08:05 09/25/18 08:05 09/25/18 08:05 Oxygen Delivery Method Room Air Weight: 64.7 kg Body Mass Index (BMI) 26.9 Intake and Output for Last 24 Hours 09/23/18 09/24/18 09/25/18 23:59 23:59 23:59 Output Total 150 / 150 Balance -150 / -150 General: - - expressive aphasia. alert. NAD. afebrile Neck: No Nodes, Thyroid Normal Size and Texture Lungs: Clear to auscultation, Normal air movement, No rhonchi, No wheeze Cardiovascular: Regular rate, Regular Rhythm, Normal S1, Normal S2, No murmurs Abdomen: Bowel Sounds Present, Soft, Non Tender, Non-Distended, No Hepato- splenomegaly Extremities: No edema, No Calf Tenderness Psych/Mental Status: Normal Affect, Appropriate Laboratory Results 09/24/18 16:27: POC Glucose 184 H 09/24/18 20:44: POC Glucose 200 H 09/25/18 05:20: Total Creatine Kinase 38, C-React Prot Ext Range 12.00 H 09/25/18 05:20: SITA Screen Pending, BRYCE-1 Antibody Pending, SS-A/Ro IgG Antibody Pending, SS-B/La IgG Antibody Pending, Sm (Marsh) Antibody Pending, TRIAL COURT JUDGE Antibody Pending, Scl-70 Scleroderma Ab Pending, Double Strand DNA Ab Pending, Centromere B Antibody Pending, Anti-Mitochondrial Ab Pending 09/25/18 05:20: c-ANCA Antibody Pending, p-ANCA Antibody Pending, Anti-Smooth Muscle Ab Pending, Hepatitis A IgM Ab Pending, Hep Bs Antigen Pending, Hep B Core IgM Ab Pending, Hepatitis C Ab (EIA) Pending 09/25/18 05:20: Hepatitis A IgM Ab Cancelled, Hep Bs Antigen Cancelled, Hep B Core IgM Ab Cancelled, Hepatitis C Ab (EIA) Cancelled 09/25/18 06:51: POC Glucose 116 H 09/25/18 11:13: POC Glucose 108 Current Medications Acetaminophen (Tylenol) 650 mg PO Q6H PRN PRN PRN Reason: Mild Pain (0-3/10)/Headache Last Admin: 09/25/18 06:28 Dose: 650 mg Alprazolam (Xanax) 0.25 mg PO Q8H PRN PRN PRN Reason: ANXIETY Last Admin: 09/23/18 22:10 Dose: 0.25 mg Amlodipine Besylate (Norvasc) 10 mg PO DAILY [facility] Last Admin: 09/25/18 08:11 Dose: 10 mg Atorvastatin Calcium (Lipitor) 10 mg PO QHS [facility] Last Admin: 09/22/18 20:58 Dose: 10 mg Bisacodyl (Dulcolax) 10 mg RECTAL .PRN X 1 PRN PRN Reason: Constipation Dexamethasone (Decadron) 8 mg PO BIDCM [facility] Stop: 09/26/18 17:01 Last Admin: 09/25/18 08:11 Dose: 8 mg Dexamethasone (Decadron) 6 mg PO BIDCM [facility] Stop: 09/29/18 17:01 [facility] Stop: 10/02/18 17:01 [facility] Enoxaparin Sodium (Lovenox) 40 mg SC DAILY [facility] Last Admin: 09/25/18 09:13 Dose: 40 mg Levetiracetam (Keppra Tablet) 500 mg PO BID [facility] Last Admin: 09/25/18 08:11 Dose: 500 mg Levothyroxine Sodium (Synthroid) 50 mcg PO DAILY@0600 [facility] Last Admin: 09/25/18 06:29 Dose: 50 mcg Magnesium Hydroxide (Milk Of Magnesia) 30 ml PO .PRN X 1 PRN PRN Reason: Constipation Last Admin: 09/22/18 18:52 Dose: 30 ml Nutritional Formula (Lactose Free) (Ensure Enlive) 120 ml PO 4X/DAY [facility] Last Admin: 09/25/18 11:22 Dose: Not Given Nystatin (Nystatin) 500,000 unit PO 4X/DAY [facility] Last Admin: 09/25/18 11:22 Dose: Not Given Ondansetron HCl (Zofran Odt) 4 mg PO Q8H PRN PRN PRN Reason: NAUSEA Last Admin: 09/23/18 07:38 Dose: 4 mg Oxycodone HCl (Oxyir) 5 mg PO Q6H PRN PRN PRN Reason: SEVERE PAIN (6-02/22) Last Admin: 09/23/18 07:38 Dose: 5 mg Pantoprazole Sodium (Protonix) 40 mg PO DAILY [facility] Last Admin: 09/25/18 08:11 Dose: 40 mg Senna/Docusate Sodium (Senokot-S, Yulissa-Colace) 2 tablet PO BID [facility] Last Admin: 09/25/18 08:11 Dose: 2 tablet Medical Necessity - Tobacco Use Smoking Status: Former smoker Assessment/Plan All Active Problems (Last Updated 09/22/18 @ 15:59 by Alyce Coffman, MEDICAL STAFF PHYSICIAN-C) Lower gastrointestinal bleeding (Acute) Left sided colitis (Acute) Abnormal CT of the chest (Acute) Status post craniotomy (Acute) 1. S/P left craniotomy * malingant glioma * follow up with Dr. Lamar at on the * on Decadron taper * Severiano for szr prophylaxis 2. DM2 * exacerbated by steroids * start moderate dosing SSI and monitor 4. VTE prophy: LMWH Code Visit Inpatient E&M: 63548 Subs Hosp L2
[2018-09-25] MEDS: Glycerin/Hypromellose/PEG400 15 ml Bottle 1 DRP EACH EYE (16:13)
[2018-09-25 16:36] LABS: Bedside Glucose 123 mg/dL (70-110)
[2018-09-25] MEDS: NYSTATIN 500,000 UNIT/5 ML UDC 500000 UNIT PO ×2 (17:13→22:10)
--- NOTE | 2018-09-25 18:12 | NURSING ---
reviewed and agree with WATER QUALITY TESTER's FIMS and charting
[2018-09-25 19:24] VITALS: BP 130/77; PULSE 73; RESP 16; TEMP 36.9; O2SAT 93
[2018-09-25 21:41] LABS: Bedside Glucose 280 mg/dL (70-110)
[2018-09-25 22:00] VITALS: PULSE 73; RESP 16; O2SAT 94
[2018-09-26] MEDS: Levothyroxine 50 MCG Tablet PO (05:25)
[2018-09-26] MEDS: Acetaminophen 325 MG Tablet 650 MG PO ×2 (05:25→14:21)
[2018-09-26 06:51] LABS: Bedside Glucose 98 mg/dL (70-110)
[2018-09-26 07:06] VITALS: BP 132/74; PULSE 76; RESP 18; TEMP 36.5; O2SAT 94
[2018-09-26] MEDS: Enoxaparin 40 MG/0.4 ML Syringe SC (09:20)
[2018-09-26] MEDS: NYSTATIN 500,000 UNIT/5 ML UDC 500000 UNIT PO ×4 (09:20→20:47)
[2018-09-26] MEDS: amLODIPine 10 MG Tablet PO (09:20)
[2018-09-26] MEDS: dexAMETHasone 4 MG Tablet 8 MG PO ×2 (09:20→17:28)
[2018-09-26] MEDS: Pantoprazole Sodium 40 MG Tablet PO (09:20)
[2018-09-26] MEDS: levETIRAcetam 500 MG Tablet PO ×2 (09:20→20:48)
[2018-09-26 11:26] LABS: Bedside Glucose 79 mg/dL (70-110)
--- NOTE | 2018-09-26 12:54 | PN.NEURO_ITS ---
Patient Problems: Active and Suspected Problems (Last Updated 09/22/18 @ 15:59 by Alyce Coffman NP-C) Status post craniotomy (Acute) Subjective: Per nursing yesterday daughter did not want patient taking xanax PRN and would rarely take it at home, per nursing pt ok to discontinue. Per therapy, patient is tolerating therapies well and following simple commands. - Physical Exam General: Alert - x1 self expressive aphasia, Cooperative HEENT: Atraumatic, PERRLA Oral: Moist Mucosa Neck: Supple, No JVD Lungs: Clear to auscultation, Normal air movement Cardiovascular: Regular rate, Regular Rhythm Abdomen: Bowel Sounds Present, Soft, Non Tender Extremities: No clubbing, No cyanosis, Edema - minimal to left temporal area and left cheek Skin: Incision - sutures intact to left temporal area, without redness or active drng., - - ecchymotic area to left cheek and under chin Musculoskeletal: No Tenderness to Palpation of Joints or Extremities Neurological: - - Cranial nerves II-XII grossly intact, Motor Exam 5/5 strength throughout, - receptive and expressive aphasia and takes more time to process and follow simple commands. Speech improving Psych/Mental Status: Normal Affect, Appropriate, - - a/o x1 able to speek last name, has recpetive and expressive aphasia Vital Signs Temp Pulse Resp BP Pulse Ox 97.7 F L 76 18 132/74 H 94 09/26/18 07:06 09/26/18 07:06 09/26/18 07:06 09/26/18 07:06 09/26/18 07:06 Oxygen Delivery Method Room Air Weight: 64.7 kg Body Mass Index (BMI) 26.9 Intake and Output for Last 24 Hours 09/24/18 09/25/18 09/26/18 23:59 23:59 23:59 Intake Total 120 / 120 Balance 120 / 120 POC Glucose 09/26/18 09/26/18 09/25/18 11:19 06:33 21:13 POC Glucose 79 98 280 H 09/25/18 16:17 POC Glucose 123 H Medical Necessity - Tobacco Use Smoking Status: Former smoker Assessment/Plan All Active Problems (Last Updated 09/22/18 @ 15:59 by Alyce Coffman NP-C) Lower gastrointestinal bleeding (Acute) Left sided colitis (Acute) Abnormal CT of the chest (Acute) Status post craniotomy (Acute) The patient is a 68 year old F with PMH hypertension, hyperlipidemia, COPD, IHSAN, depression, anxiety, asthma, anemia, hypothyroidism, GERD, HX of lung cancer post thoracotomy in 2014 admitted to inpatient rehab on 09/22/2018 for debility secondary s/p left sided craniotomy for tumor resection for greater of 3 hours of therapy daily with a goal of returning back home at or near her prior level of functional dependence. Patient has had a history of headaches, word finding difficulties and blurred vision and a MRI was obtained which revealed enhancing lesion in the left posterior superior lobe with surrounding edema measuring 2.6 x 1.6 cm in size. Patient was referred to Dr. Aaron Lamar at [facility] where he performed a left-sided craniotomy with 5 ALA for tumor resection on September 19, 2018. Postoperative diagnosis per report malignant glioma. A postop CT scan was done on July 22, 2019 2019 Impression: postoperative changes at the craniotomy and within the margins of the left posterior temporal cortical resection site there were no evidence of focal infarction or hemorrhage or no evidence of residual or recurrent tumor. Prior to surgery patient lived at home alone she is independent with all of her mobility and ADL needs and was driving. Patient lives in 1 level house with first-floor set up and 2 steps to enter the house Has a flight of steps to the basement, which she does not usually go down to the basement. Plan - PT for mobility - OT for ADLs - ST for cognition/speech - Bowel protocol - Analgesics as needed - S/P craniotomy on dexamethasone taper, levetiracetam has appt on September with Dr. Lamar - HTN on felodipine - Anxiety on Xanax prn - Depression not on anything current - Hypothyroidism on levothyroxine - GERD on Protonix - Hyperlipidemia on atorvastatin - GI/DVT prophylaxis on Protonix/Heparin 5,000 SQ TID, knee high teds, SCDs, - Fall precautions - Further medical management per hospitalist recommendation, hospitalist consult - F/U with PCP and Neurosurgeon
[2018-09-26 16:07] LABS: Cytoplasmic Ab (C-ANCA) <1:20 titer (Neg:<1:20); HEPATITIS B SURFACE AG Negative (Negative); Hepatitis A IgM Antibody Negative (Negative); Hepatitis B Core AB IgM Negative (Negative)
[2018-09-26 16:16] LABS: Bedside Glucose 234 mg/dL (70-110)
--- NOTE | 2018-09-26 17:11 | CASEMGMT ---
SW met with pt in room. Pt currently has family in room and pt denying talking to SW at this time. Pt requesting SW return tomorrow. SW will visit pt tomorrow to complete psychosocial assessment. KODAK Estrada
[2018-09-26] MEDS: Insulin Lispro 100 UNIT/ML INSULN.PEN SQ (17:25)
[2018-09-26 19:35] VITALS: BP 146/60; PULSE 84; RESP 16; TEMP 36.7; O2SAT 93
[2018-09-26 20:30] LABS: Bedside Glucose 262 mg/dL (70-110)
[2018-09-26 22:00] VITALS: PULSE 86; RESP 16; O2SAT 93
[2018-09-26] MEDS: LORazepam 0.5 MG Tablet PO (22:32)
[2018-09-27] MEDS: Levothyroxine 50 MCG Tablet PO (05:03)
[2018-09-27 06:31] LABS: Bedside Glucose 242 mg/dL (70-110)
[2018-09-27 07:07] VITALS: BP 151/78; PULSE 69; RESP 17; TEMP 36.5; O2SAT 93
[2018-09-27] MEDS: levETIRAcetam 500 MG Tablet PO ×2 (08:17→22:44)
[2018-09-27] MEDS: amLODIPine 10 MG Tablet PO (08:17)
[2018-09-27] MEDS: NYSTATIN 500,000 UNIT/5 ML UDC 500000 UNIT PO ×4 (08:17→22:45)
[2018-09-27] MEDS: Insulin Lispro 100 UNIT/ML INSULN.PEN SQ ×2 (08:18→17:24)
[2018-09-27] MEDS: Enoxaparin 40 MG/0.4 ML Syringe SC (08:18)
[2018-09-27] MEDS: dexAMETHasone 4 MG Tablet 6 MG PO ×2 (08:18→17:24)
[2018-09-27] MEDS: Pantoprazole Sodium 40 MG Tablet PO (08:19)
[2018-09-27] MEDS: Senna/Docusate Sodium 1 Tablet 2 TABLET PO (08:19)
--- NOTE | 2018-09-27 09:21 | PCM.PN.NEU ---
<Alyce Coffman - Last Filed: 09/27/18 09:21> Patient Problems: Active and Suspected Problems (Last Updated 09/22/18 @ 15:59 by LIN Jaramillo) Status post craniotomy (Acute) Subjective: Per nursing no issues overnight. Per therapy patient is tolerating well in therapy and with participation and can continue follow simple commands. Patient in no acute distress and is pleasant and talkative, receptive and expressive aphasia continues. - Physical Exam General: Alert - x2 was able to state name and city, Cooperative HEENT: Atraumatic, PERRLA Oral: Moist Mucosa Neck: Supple, No JVD Lungs: Clear to auscultation, Normal air movement Cardiovascular: Regular rate, Regular Rhythm Abdomen: Bowel Sounds Present, Soft, Non Tender Extremities: No clubbing, No cyanosis, Edema - minimal to left temporal area and left cheek Skin: Incision - sutures intact to left temporal area, without redness or drng Musculoskeletal: No Tenderness to Palpation of Joints or Extremities Neurological: Cranial nerves II-XII grossly intact - receptive and expressive aphasia and takes more time to process and follow simple commands. Speech improving, Deep Tendon Reflexes 2+/4 and Symmetrical, Motor Exam 5/5 strength throughout Psych/Mental Status: Normal Affect, Appropriate - a/o x2 self and place Vital Signs Temp Pulse Resp BP Pulse Ox 97.7 F L 69 17 151/78 H 93 09/27/18 07:07 09/27/18 07:07 09/27/18 07:07 09/27/18 07:07 09/27/18 07:07 Oxygen Delivery Method Room Air Weight: 62.2 kg Body Mass Index (BMI) 26.9 Intake and Output for Last 24 Hours 09/25/18 09/26/18 09/27/18 23:59 23:59 23:59 Intake Total 480 / 480 240 / 240 Output Total 200 / 200 Balance -200 / -200 480 / 480 240 / 240 POC Glucose 09/27/18 09/26/18 09/26/18 06:23 20:02 16:05 POC Glucose 242 H 262 H 234 H 09/26/18 11:19 POC Glucose 79 Medical Necessity - Tobacco Use Smoking Status: Former smoker Assessment/Plan All Active Problems (Last Updated 09/22/18 @ 15:59 by LIN Jaramillo) Lower gastrointestinal bleeding (Acute) Left sided colitis (Acute) Abnormal CT of the chest (Acute) Status post craniotomy (Acute) The patient is a 68 year old F with PMH hypertension, hyperlipidemia, COPD, IHSAN, depression, anxiety, asthma, anemia, hypothyroidism, GERD, HX of lung cancer post thoracotomy in 2014 admitted to inpatient rehab on 09/22/2018 for debility secondary s/p left sided craniotomy for tumor resection for greater of 3 hours of therapy daily with a goal of returning back home at or near her prior level of functional dependence. Patient has had a history of headaches, word finding difficulties and blurred vision and a MRI was obtained which revealed enhancing lesion in the left posterior superior lobe with surrounding edema measuring 2.6 x 1.6 cm in size. Patient was referred to Dr. Aaron Lamar at [facility] where he performed a left-sided craniotomy with 5 ALA for tumor resection on September 19, 2018. Postoperative diagnosis per report malignant glioma. A postop CT scan was done on July 22, 20192018 Impression: postoperative changes at the craniotomy and within the margins of the left posterior temporal cortical resection site there were no evidence of focal infarction or hemorrhage or no evidence of residual or recurrent tumor. Prior to surgery patient lived at home alone she is independent with all of her mobility and ADL needs and was driving. Patient lives in 1 level house with first-floor set up and 2 steps to enter the house Has a flight of steps to the basement, which she does not usually go down to the basement. Plan - PT for mobility - OT for ADLs - ST for cognition/speech - Bowel protocol - Analgesics as needed - S/P craniotomy on dexamethasone taper, levetiracetam has appt on September with Dr. Lamar - HTN on felodipine - Anxiety on Xanax prn - Depression not on anything current - Hypothyroidism on levothyroxine - GERD on Protonix - Hyperlipidemia on atorvastatin - GI/DVT prophylaxis on Protonix/Heparin 5,000 SQ TID, knee high teds, SCDs, - Fall precautions - Further medical management per hospitalist recommendation, hospitalist consult - F/U with PCP and Neurosurgeon <Carlo Shah - Last Filed: 09/27/18 12:11> - Physical Exam Vital Signs Temp Pulse Resp BP Pulse Ox 36.5 C L 69 17 151/78 H 93 05/15/19 07:07 09/27/18 07:07 09/27/18 07:07 09/27/18 07:07 09/27/18 07:07 Oxygen Delivery Method Room Air Weight: 62.2 kg Body Mass Index (BMI) 26.9 Intake and Output for Last 24 Hours 09/25/18 09/26/18 09/27/18 23:59 23:59 23:59 Intake Total 480 / 480 240 / 240 Output Total 200 / 200 Balance -200 / -200 480 / 480 240 / 240 POC Glucose 09/27/18 09/26/18 09/26/18 06:23 20:02 16:05 POC Glucose 242 H 262 H 234 H Assessment/Plan Patient interviewed and examined. Agree with CAMP [employer] notes and plan as above. Plan for team meeting tomorrow. Her neurologic examination appears stable with severe aphasia. Pathology report does confirm glioblastoma. This will be discussed with the patient and family in team meeting tomorrow, with plan for outpatient follow-up with hematology/oncology to initiate treatment as needed.
--- NOTE | 2018-09-27 09:25 | PN.NEURO_ITS ---
<Alyce Coffman - Last Filed: 09/27/18 09:21> Patient Problems: Active and Suspected Problems (Last Updated 09/22/18 @ 15:59 by Alyce Butler ndt, VAN DRIVER HELPER-C) Status post craniotomy (Acute) Subjective: Per nursing no issues overnight. Per therapy patient is tolerating well in therapy and with participation and can continue follow simple commands. Patient in no acute distress and is pleasant and talkative, receptive and expressive aphasia continues. - Physical Exam General: Alert - x2 was able to state name and city, Cooperative HEENT: Atraumatic, PERRLA Oral: Moist Mucosa Neck: Supple, No JVD Lungs: Clear to auscultation, Normal air movement Cardiovascular: Regular rate, Regular Rhythm Abdomen: Bowel Sounds Present, Soft, Non Tender Extremities: No clubbing, No cyanosis, Edema - minimal to left temporal area and left cheek Skin: Incision - sutures intact to left temporal area, without redness or drng Musculoskeletal: No Tenderness to Palpation of Joints or Extremities Neurological: Cranial nerves II-XII grossly intact - receptive and expressive aphasia and takes more time to process and follow simple commands. Speech improving, Deep Tendon Reflexes 2+/4 and Symmetrical, Motor Exam 5/5 strength throughout Psych/Mental Status: Normal Affect, Appropriate - a/o x2 self and place Vital Signs Temp Pulse Resp BP Pulse Ox 97.7 F L 69 17 151/78 H 93 09/27/18 07:07 09/27/18 07:07 09/27/18 07:07 09/27/18 07:07 09/27/18 07:07 Oxygen Delivery Method Room Air Weight: 62.2 kg Body Mass Index (BMI) 26.9 Intake and Output for Last 24 Hours 09/25/18 09/26/18 09/27/18 23:59 23:59 23:59 Intake Total 480 / 480 240 / 240 Output Total 200 / 200 Balance -200 / -200 480 / 480 240 / 240 POC Glucose 09/27/18 09/26/18 09/26/18 06:23 20:02 16:05 POC Glucose 242 H 262 H 234 H 09/26/18 11:19 POC Glucose 79 Medical Necessity - Tobacco Use Smoking Status: Former smoker Assessment/Plan All Active Problems (Last Updated 09/22/18 @ 15:59 by Alyce Coffman NP-C) Lower gastrointestinal bleeding (Acute) Left sided colitis (Acute) Abnormal CT of the chest (Acute) Status post craniotomy (Acute) The patient is a 68 year old F with PMH hypertension, hyperlipidemia, COPD, IHSAN, depression, anxiety, asthma, anemia, hypothyroidism, GERD, HX of lung cancer post thoracotomy in 2014 admitted to inpatient rehab on 09/22/2018 for debility secondary s/p left sided craniotomy for tumor resection for greater of 3 hours of therapy daily with a goal of returning back home at or near her prior level of functional dependence. Patient has had a history of headaches, word finding difficulties and blurred vision and a MRI was obtained which revealed enhancing lesion in the left posterior superior lobe with surrounding edema measuring 2.6 x 1.6 cm in size. Patient was referred to Dr. Aaron Lamar at [facility] where he performed a left-sided craniotomy with 5 ALA for tumor resection on September 19, 2018. Postoperative diagnosis per report malignant glioma. A postop CT scan was done on July 22, 20192018 Impression: postoperative changes at the craniotomy and within the margins of the left posterior temporal cortical resection site there were no evidence of focal infarction or hemorrhage or no evidence of residual or recurrent tumor. Prior to surgery patient lived at home alone she is independent with all of her mobility and ADL needs and was driving. Patient lives in 1 level house with first-floor set up and 2 steps to enter the house Has a flight of steps to the basement, which she does not usually go down to the basement. Plan - PT for mobility - OT for ADLs - ST for cognition/speech - Bowel protocol - Analgesics as needed - S/P craniotomy on dexamethasone taper, levetiracetam has appt on September with Dr. Lamar - HTN on felodipine - Anxiety on Xanax prn - Depression not on anything current - Hypothyroidism on levothyroxine - GERD on Protonix - Hyperlipidemia on atorvastatin - GI/DVT prophylaxis on Protonix/Heparin 5,000 SQ TID, knee high teds, SCDs, - Fall precautions - Further medical management per hospitalist recommendation, hospitalist consult - F/U with PCP and Neurosurgeon <Carlo Shah - Last Filed: 09/27/18 12:11> - Physical Exam Vital Signs Temp Pulse Resp BP Pulse Ox 36.5 C L 69 17 151/78 H 93 09/27/18 07:07 09/27/18 07:07 09/27/18 07:07 09/27/18 07:07 09/27/18 07:07 Oxygen Delivery Method Room Air Weight: 62.2 kg Body Mass Index (BMI) 26.9 Intake and Output for Last 24 Hours 09/25/18 09/26/18 09/27/18 23:59 23:59 23:59 Intake Total 480 / 480 240 / 240 Output Total 200 / 200 Balance -200 / -200 480 / 480 240 / 240 POC Glucose 09/27/18 09/26/18 09/26/18 06:23 20:02 16:05 POC Glucose 242 H 262 H 234 H Assessment/Plan Patient interviewed and examined. Agree with VAN DRIVER HELPER notes and plan as above. Plan for team meeting tomorrow. Her neurologic examination appears stable with severe aphasia. Pathology report does confirm glioblastoma. This will be discussed with the patient and family in team meeting tomorrow, with plan for outpatient follow-up with hematology/oncology to initiate treatment as needed.
--- NOTE | 2018-09-27 10:30 | NURSING ---
spoke with ilan at dr maxwell office. pathology report faxed per dr zapata request. per her f/u appointment on 10/05 is for suture removal and to discuss pathology report with family.
--- NOTE | 2018-09-27 11:56 | NURSING ---
Spoke to Ivy at Oncology she is going to call Dr. Lamar order the medical records and call us back with an outpt. appt. [phone]
[2018-09-27 13:02] LABS: Bedside Glucose 106 mg/dL (70-110)
[2018-09-27] MEDS: Acetaminophen 325 MG Tablet 650 MG PO (13:14)
[2018-09-27 13:34] LABS: ANTINUCLEAR ANTIBODIES DIRECT Negative (Negative); Anti-Mitochondrial AB <20.0 Units (0.0-20.0); Anti-Smooth Muscle ABS 7 Units (0-19); Hep C Antibodies <0.1 s/co ratio (0.0-0.9); Perinuclear Ab (P-ANCA) <1:20 titer (Neg:<1:20)
--- NOTE | 2018-09-27 14:54 | PCM.PN.HOSP ---
Patient Problems: Active and Suspected Problems (Last Updated 09/22/18 @ 15:59 by Alyce Coffman, PUMP OILER-C) Status post craniotomy (Acute) Subjective: Denies any new complaints. Vitals/I&O's: Vital Signs Temp Pulse Resp BP Pulse Ox 36.5 C L 69 17 151/78 H 93 09/27/18 07:07 09/27/18 07:07 09/27/18 07:07 09/27/18 07:07 09/27/18 07:07 Oxygen Delivery Method Room Air Weight: 62.2 kg Body Mass Index (BMI) 26.9 Intake and Output for Last 24 Hours 09/25/18 09/26/18 09/27/18 23:59 23:59 23:59 Intake Total 480 / 480 360 / 360 Output Total 200 / 200 Balance -200 / -200 480 / 480 360 / 360 General: Alert, - - expressive aphasia. pleasant. afebrile. HEENT: Atraumatic, Normocephalic Oral: Moist Mucosa, No Gingival or Mucosal Lesions/ Ulcerations Neck: No Nodes, Thyroid Normal Size and Texture Lungs: Clear to auscultation, Normal air movement, No rhonchi, No wheeze Cardiovascular: Regular rate, Regular Rhythm, Normal S1, Normal S2, No murmurs Abdomen: Bowel Sounds Present, Soft, Non Tender, Non-Distended, No Hepato-splenomegaly Extremities: No edema, No Calf Tenderness Skin: No rashes, No breakdown Musculoskeletal: No Tenderness to Palpation of Joints or Extremities, No Muscle Wasting Psych/Mental Status: Normal Affect, Appropriate Laboratory Results 09/25/18 05:20: SITA Screen Negative, BRYCE-1 Antibody Not Reportable, SS-A/Ro IgG Antibody Not Reportable, SS-B/La IgG Antibody Not Reportable, Sm (Marsh) Antibody Not Reportable, OUTREACH AND EDUCATION SOCIAL WORKER Antibody Not Reportable, Scl-70 Scleroderma Ab Not Reportable, Double Strand DNA Ab Not Reportable, Centromere B Antibody Not Reportable, Anti-Mitochondrial Ab <20.0 09/25/18 05:20: c-ANCA Antibody <1:20, Atypical p-ANCA <1:20, p-ANCA Antibody <1:20, Anti-Smooth Muscle Ab 7, Hepatitis A IgM Ab Negative, Hep Bs Antigen Negative, Hep B Core IgM Ab Negative, Hepatitis C Ab (EIA) <0.1 09/26/18 16:05: POC Glucose 234 H 09/26/18 20:02: POC Glucose 262 H 09/27/18 06:23: POC Glucose 242 H 09/27/18 11:50: POC Glucose 106 Current Medications Acetaminophen (Tylenol) 650 mg PO Q6H PRN PRN PRN Reason: Mild Pain (0-3/10)/Headache Last Admin: 09/27/18 13:14 Dose: 650 mg Amlodipine Besylate (Norvasc) 10 mg PO DAILY [facility] Last Admin: 09/27/18 08:17 Dose: 10 mg Atorvastatin Calcium (Lipitor) 10 mg PO QHS [facility] Last Admin: 09/22/18 20:58 Dose: 10 mg Bisacodyl (Dulcolax) 10 mg RECTAL .PRN X 1 PRN PRN Reason: Constipation [facility] Stop: 09/29/18 17:01 Last Admin: 09/27/18 08:18 Dose: 6 mg Dexamethasone (Decadron) [facility] Stop: 10/02/18 17:01 Dexamethasone (Decadron) [facility] Dextrose (D50w Syringe) 0 gm IV X1 PRN; Protocol PRN Reason: Hypoglycemia Enoxaparin Sodium (Lovenox) 40 mg SC DAILY [facility] Last Admin: 09/27/18 08:18 Dose: 40 mg Glucagon () 1 mg IM .X1 PRN PRN Reason: Hypoglycemia Insulin Glargine (Lantus (Bkc)) 10 units SC QHS [facility] Insulin Human Lispro (Humalog Kwikpen (Bk)) 0 unit SQ TIDAC [facility]; Protocol Last Admin: 09/27/18 12:16 Dose: Not Given Levetiracetam (Keppra Tablet) 500 mg PO BID [facility] Last Admin: 09/27/18 08:17 Dose: 500 mg Levothyroxine Sodium (Synthroid) 50 mcg PO DAILY@0600 [facility] Last Admin: 09/27/18 05:03 Dose: 50 mcg Lorazepam (Ativan) 0.5 mg PO QHS PRN PRN PRN Reason: restlessness Last Admin: 09/26/18 22:32 Dose: 0.5 mg Magnesium Hydroxide (Milk Of Magnesia) 30 ml PO .PRN X 1 PRN PRN Reason: Constipation Last Admin: 09/22/18 18:52 Dose: 30 ml Nutritional Formula (Lactose Free) (Ensure Enlive) 120 ml PO 4X/DAY [facility] Last Admin: 09/27/18 13:15 Dose: 120 ml Nystatin (Nystatin) 500,000 unit PO 4X/DAY [facility] Last Admin: 09/27/18 13:14 Dose: 500,000 unit Ondansetron HCl (Zofran Odt) 4 mg PO Q8H PRN PRN PRN Reason: NAUSEA Last Admin: 09/23/18 07:38 Dose: 4 mg Oxycodone HCl (Oxyir) 5 mg PO Q6H PRN PRN PRN Reason: SEVERE PAIN (-02/22) Last Admin: 09/23/18 07:38 Dose: 5 mg Pantoprazole Sodium (Protonix) 40 mg PO DAILY [facility] Last Admin: 09/27/18 08:19 Dose: 40 mg Senna/Docusate Sodium (Senokot-S, Yulissa-Colace) 2 tablet PO BID [facility] Last Admin: 09/27/18 08:19 Dose: 2 tablet Medical Necessity - Tobacco Use Smoking Status: Former smoker Assessment/Plan All Active Problems (Last Updated 09/22/18 @ 15:59 by Alyce Coffman, PUMP OILER-C) Lower gastrointestinal bleeding (Acute) Left sided colitis (Acute) Abnormal CT of the chest (Acute) Status post craniotomy (Acute) 1. S/P left craniotomy informed it was GBM oncology consulted follow up with Dr. Lamar at on the on Decadron taper Keppra for szr prophylaxis still with expressive aphasia (able to speak fluidly, but confabulatory at times) 2. DM2 exacerbated by steroids start basal insulin 10 units QHS and monitor. 4. VTE prophy: LMWH Code Visit Inpatient E&M: 84112 Subs Hosp L2
--- NOTE | 2018-09-27 14:58 | PN_ITS ---
Patient Problems: Active and Suspected Problems (Last Updated 09/22/18 @ 15:59 by Alyce Coffman, ART FRAMING MANAGER-C) Status post craniotomy (Acute) Subjective: Denies any new complaints. Vitals/I&O's: Vital Signs Temp Pulse Resp BP Pulse Ox 36.5 C L 69 17 151/78 H 93 09/27/18 07:07 09/27/18 07:07 09/27/18 07:07 09/27/18 07:07 09/27/18 07:07 Oxygen Delivery Method Room Air Weight: 62.2 kg Body Mass Index (BMI) 26.9 Intake and Output for Last 24 Hours 09/25/18 09/26/18 09/27/18 23:59 23:59 23:59 Intake Total 480 / 480 360 / 360 Output Total 200 / 200 Balance -200 / -200 480 / 480 360 / 360 General: Alert, - - expressive aphasia. pleasant. afebrile. HEENT: Atraumatic, Normocephalic Oral: Moist Mucosa, No Gingival or Mucosal Lesions/ Ulcerations Neck: No Nodes, Thyroid Normal Size and Texture Lungs: Clear to auscultation, Normal air movement, No rhonchi, No wheeze Cardiovascular: Regular rate, Regular Rhythm, Normal S1, Normal S2, No murmurs Abdomen: Bowel Sounds Present, Soft, Non Tender, Non-Distended, No Hepato- splenomegaly Extremities: No edema, No Calf Tenderness Skin: No rashes, No breakdown Musculoskeletal: No Tenderness to Palpation of Joints or Extremities, No Muscle Wasting Psych/Mental Status: Normal Affect, Appropriate Laboratory Results 09/25/18 05:20: SITA Screen Negative, BRYCE-1 Antibody Not Reportable, SS-A/Ro IgG Antibody Not Reportable, SS-B/La IgG Antibody Not Reportable, Sm (Marsh) Antibody Not Reportable, OIL BAY TECHNICIAN Antibody Not Reportable, Scl-70 Scleroderma Ab Not Reportable, Double Strand DNA Ab Not Reportable, Centromere B Antibody Not Reportable, Anti-Mitochondrial Ab <20.0 09/25/18 05:20: c-ANCA Antibody <1:20, Atypical p-ANCA <1:20, p-ANCA Antibody <1:20, Anti-Smooth Muscle Ab 7, Hepatitis A IgM Ab Negative, Hep Bs Antigen Negative, Hep B Core IgM Ab Negative, Hepatitis C Ab (EIA) <0.1 09/26/18 16:05: POC Glucose 234 H 09/26/18 20:02: POC Glucose 262 H 09/27/18 06:23: POC Glucose 242 H 09/27/18 11:50: POC Glucose 106 Current Medications Acetaminophen (Tylenol) 650 mg PO Q6H PRN PRN PRN Reason: Mild Pain (0-3/10)/Headache Last Admin: 09/27/18 13:14 Dose: 650 mg Amlodipine Besylate (Norvasc) 10 mg PO DAILY [facility] Last Admin: 09/27/18 08:17 Dose: 10 mg Atorvastatin Calcium (Lipitor) 10 mg PO QHS [facility] Last Admin: 09/22/18 20:58 Dose: 10 mg Bisacodyl (Dulcolax) 10 mg RECTAL .PRN X 1 PRN PRN Reason: Constipation [facility] Stop: 09/29/18 17:01 Last Admin: 09/27/18 08:18 Dose: 6 mg [facility]amethasone ([facility]adron) [facility] Stop: 10/02/18 17:01 [facility] Dextrose (D50w Syringe) 0 gm IV X1 PRN; Protocol PRN Reason: Hypoglycemia Enoxaparin Sodium (Lovenox) 40 mg SC DAILY [facility] Last Admin: 09/27/18 08:18 Dose: 40 mg Glucagon () 1 mg IM .X1 PRN PRN Reason: Hypoglycemia Insulin Glargine (Lantus (Bkc)) 10 units SC QHS [facility] Insulin Human Lispro (Humalog Kwikpen (Bk)) 0 unit SQ TIDAC [facility]; Protocol Last Admin: 09/27/18 12:16 Dose: Not Given Levetiracetam (Keppra Tablet) 500 mg PO BID [facility] Last Admin: 09/27/18 08:17 Dose: 500 mg Levothyroxine Sodium (Synthroid) 50 mcg PO DAILY@0600 [facility] Last Admin: 09/27/18 05:03 Dose: 50 mcg Lorazepam (Ativan) 0.5 mg PO QHS PRN PRN PRN Reason: restlessness Last Admin: 09/26/18 22:32 Dose: 0.5 mg Magnesium Hydroxide (Milk Of Magnesia) 30 ml PO .PRN X 1 PRN PRN Reason: Constipation Last Admin: 09/22/18 18:52 Dose: 30 ml Nutritional Formula (Lactose Free) (Ensure Enlive) 120 ml PO 4X/DAY [facility] Last Admin: 09/27/18 13:15 Dose: 120 ml Nystatin (Nystatin) 500,000 unit PO 4X/DAY [facility] Last Admin: 09/27/18 13:14 Dose: 500,000 unit Ondansetron HCl (Zofran Odt) 4 mg PO Q8H PRN PRN PRN Reason: NAUSEA Last Admin: 09/23/18 07:38 Dose: 4 mg Oxycodone HCl (Oxyir) 5 mg PO Q6H PRN PRN PRN Reason: SEVERE PAIN (-02/22) Last Admin: 09/23/18 07:38 Dose: 5 mg Pantoprazole Sodium (Protonix) 40 mg PO DAILY [facility] Last Admin: 09/27/18 08:19 Dose: 40 mg Senna/Docusate Sodium (Senokot-S, Yulissa-Colace) 2 tablet PO BID [facility] Last Admin: 09/27/18 08:19 Dose: 2 tablet Medical Necessity - Tobacco Use Smoking Status: Former smoker Assessment/Plan All Active Problems (Last Updated 09/22/18 @ 15:59 by Alyce Coffman, ART FRAMING MANAGER-C) Lower gastrointestinal bleeding (Acute) Left sided colitis (Acute) Abnormal CT of the chest (Acute) Status post craniotomy (Acute) 1. S/P left craniotomy * informed it was GBM * oncology consulted * follow up with Dr. Lamar at on the * on Decadron taper * Severiano for szr prophylaxis * still with expressive aphasia (able to speak fluidly, but confabulatory at times) 2. DM2 * exacerbated by steroids * start basal insulin 10 units QHS and monitor. 4. VTE prophy: LMWH Code Visit Inpatient E&M: 38239 Subs Hosp L2
[2018-09-27 16:56] LABS: Bedside Glucose 214 mg/dL (70-110)
[2018-09-27 19:59] VITALS: BP 134/57; PULSE 91; RESP 18; TEMP 36.6; O2SAT 96
[2018-09-27 22:56] LABS: Bedside Glucose 200 mg/dL (70-110)
[2018-09-27] MEDS: LORazepam 0.5 MG Tablet PO (23:15)
[2018-09-28] MEDS: Levothyroxine 50 MCG Tablet PO (06:00)
[2018-09-28 07:01] LABS: Bedside Glucose 227 mg/dL (70-110)
[2018-09-28] MEDS: Insulin Lispro 100 UNIT/ML INSULN.PEN SQ ×2 (08:07→17:08)
[2018-09-28] MEDS: dexAMETHasone 4 MG Tablet 6 MG PO ×2 (08:08→17:08)
[2018-09-28] MEDS: levETIRAcetam 500 MG Tablet PO ×2 (08:08→21:06)
[2018-09-28] MEDS: Pantoprazole Sodium 40 MG Tablet PO (08:08)
[2018-09-28] MEDS: Enoxaparin 40 MG/0.4 ML Syringe SC (08:09)
[2018-09-28] MEDS: amLODIPine 10 MG Tablet PO (08:09)
[2018-09-28 08:54] VITALS: BP 151/78; PULSE 83; RESP 20; TEMP 36.6; O2SAT 97
[2018-09-28] MEDS: Acetaminophen 325 MG Tablet 650 MG PO (10:28)
--- NOTE | 2018-09-28 10:50 | CASEMGMT ---
Team meeting held today with pt and two daughters present. Pt is receiving PT/OT/ST. Pt is progressing with PT/OT completing dressing and bathing at [facility] and transferring and ambulating with WW at [facility]. Pt continues with auditory comprehension and verbal expression deficits. At this time pt will not be safe to be home alone due to cognitive changes. Pt dgt stating pt will not ever be alone at home but will have 24 hour care of family members. Will continue with treatment plan and reteam next week. After team meeting SW spoke with pt dgt. Pt with new diagosis. Pt dgt emotional and upset. SW provided emotional support. Will continue to follow for support and d/c planning. KODAK Estrada
[2018-09-28 12:15] LABS: Bedside Glucose 116 mg/dL (70-110)
--- NOTE | 2018-09-28 12:45 | PN.NEURO_ITS ---
Patient Problems: Active and Suspected Problems (Last Updated 09/22/18 @ 15:59 by Alyce Coffman, APPLICATION DEVELOPER-C) Status post craniotomy (Acute) Subjective: Per nursing no issues overnight. Team meeting held this am. Daughters present. Per OT/PT increased in mobility. Per ST comprehension 70% accuracy with responses and 50-90% with identification. Receptive and expressive aphasia improving. Dr. Shah discussed pathology report of glioblastoma stage IV with daughters and patient. Patient and daughters verbalized understanding and wants to f/u with oncology at [place]. Dr. Maguire office notified and requested Dr. [place] documentation. Patient to be re-teamed next week. - Physical Exam General: Alert, Cooperative - oreinted x 2, self and place HEENT: Atraumatic Oral: Moist Mucosa Neck: Supple, No JVD Lungs: Clear to auscultation, Normal air movement Cardiovascular: Regular rate, Regular Rhythm Abdomen: Bowel Sounds Present, Soft, Non Tender Extremities: No clubbing, No cyanosis, Edema - minimal edema to left temporal and left cheek Skin: Incision - sutures intact to left temporal area, without redness or drng. Musculoskeletal: No Tenderness to Palpation of Joints or Extremities Neurological: - - Cranial nerves II-XII grossly intact - receptive and expressive aphasia and takes more time to process and follow simple commands. Speech improving, Deep Tendon Reflexes 2+/4 and Symmetrical, Motor Exam 5/5 strength throughout Psych/Mental Status: Normal Affect, Appropriate - a/o x2 self and place, easily redirects Vital Signs Temp Pulse Resp BP Pulse Ox 97.9 F 83 20 H 151/78 H 97 09/28/18 08:54 09/28/18 08:54 09/28/18 08:54 09/28/18 08:54 09/28/18 08:54 Oxygen Delivery Method Room Air Weight: 62.2 kg Body Mass Index (BMI) 26.9 Intake and Output for Last 24 Hours 09/26/18 09/27/18 09/28/18 23:59 23:59 23:59 Intake Total 480 / 480 360 / 360 Balance 480 / 480 360 / 360 Laboratory Tests Past 24 Hrs 09/25/18 09/25/18 05:20 05:20 SITA Screen Negative c-ANCA Antibody <1:20 Atypical p-ANCA <1:20 p-ANCA Antibody <1:20 BRYCE-1 Antibody Not Reportable SS-A/Ro IgG Antibody Not Reportable SS-B/La IgG Antibody Not Reportable Sm (Marsh) Antibody Not Reportable PSYCHOLOGY TECH Antibody Not Reportable Scl-70 Scleroderma Ab Not Reportable Double Strand DNA Ab Not Reportable Centromere B Antibody Not Reportable Anti-Mitochondrial Ab <20.0 Anti-Smooth Muscle Ab 7 Hepatitis A IgM Ab Negative Hep Bs Antigen Negative Hep B Core IgM Ab Negative Hepatitis C Ab (EIA) <0.1 POC Glucose 09/28/18 09/28/18 09/27/18 11:21 06:49 22:43 POC Glucose 116 H 227 H 200 H 09/27/18 09/27/18 16:44 11:50 POC Glucose 214 H 106 Medical Necessity - Tobacco Use Smoking Status: Former smoker Assessment/Plan All Active Problems (Last Updated 09/22/18 @ 15:59 by Alyce Coffman, APPLICATION DEVELOPER-C) Lower gastrointestinal bleeding (Acute) Left sided colitis (Acute) Abnormal CT of the chest (Acute) Status post craniotomy (Acute) The patient is a 68 year old F with PMH hypertension, hyperlipidemia, COPD, IHSAN, depression, anxiety, asthma, anemia, hypothyroidism, GERD, HX of lung cancer post thoracotomy in 2014 admitted to inpatient rehab on 09/22/2018 for debility secondary s/p left sided craniotomy for tumor resection for greater of 3 hours of therapy daily with a goal of returning back home at or near her prior level of functional dependence. Patient has had a history of headaches, word finding difficulties and blurred vision and a MRI was obtained which revealed enhancing lesion in the left posterior superior lobe with surrounding edema measuring 2.6 x 1.6 cm in size. Patient was referred to Dr. Aaron Lamar at [facility] where he performed a left-sided craniotomy with 5 ALA for tumor resection on September 19, 2018. Postoperative diagnosis per report malignant glioma. A postop CT scan was done on July 22, 2019 2019 Impression: postoperative changes at the craniotomy and within the margins of the left posterior temporal cortical resection site there were no evidence of focal infarction or hemorrhage or no evidence of residual or recurrent tumor. Prior to surgery patient lived at home alone she is independent with all of her mobility and ADL needs and was driving. Patient lives in 1 level house with first-floor set up and 2 steps to enter the house Has a flight of steps to the basement, which she does not usually go down to the basement. Plan - PT for mobility - OT for ADLs - ST for cognition/speech - Bowel protocol - Analgesics as needed - S/P craniotomy on dexamethasone taper, levetiracetam has appt on September with Dr. Lamar - HTN on felodipine - Anxiety on Xanax prn - Depression not on anything current - Hypothyroidism on levothyroxine - GERD on Protonix - Hyperlipidemia on atorvastatin - Glioblastoma stage IV per pathology report follow with Dr. Maguire - GI/DVT prophylaxis on Protonix/Heparin 5,000 SQ TID, knee high teds, SCDs, - Fall precautions - Further medical management per hospitalist recommendation, hospitalist consult - F/U with PCP and Neurosurgeon
[2018-09-28 17:35] LABS: Bedside Glucose 167 mg/dL (70-110)
[2018-09-28 20:57] VITALS: BP 146/74; PULSE 88; RESP 16; TEMP 36.6; O2SAT 95
[2018-09-28] MEDS: Senna/Docusate Sodium 1 Tablet 2 TABLET PO (21:06)
[2018-09-28] MEDS: LORazepam 0.5 MG Tablet PO ×2 (21:07→21:48)
[2018-09-28 22:01] LABS: Bedside Glucose 228 mg/dL (70-110)
[2018-09-29 06:11] LABS: Bedside Glucose 234 mg/dL (70-110)
[2018-09-29] MEDS: Insulin Lispro 100 UNIT/ML INSULN.PEN SQ ×3 (06:19→17:28)
[2018-09-29] MEDS: Levothyroxine 50 MCG Tablet PO (06:19)
[2018-09-29 07:35] VITALS: BP 151/79; PULSE 65; RESP 18; TEMP 36.7; O2SAT 94
[2018-09-29] MEDS: Pantoprazole Sodium 40 MG Tablet PO (08:10)
[2018-09-29] MEDS: amLODIPine 10 MG Tablet PO (08:11)
[2018-09-29] MEDS: Enoxaparin 40 MG/0.4 ML Syringe SC (08:11)
[2018-09-29] MEDS: levETIRAcetam 500 MG Tablet PO ×2 (08:11→20:49)
[2018-09-29] MEDS: dexAMETHasone 4 MG Tablet 6 MG PO ×2 (08:11→18:16)
--- NOTE | 2018-09-29 09:25 | PN.NEURO_ITS ---
Patient Problems: Active and Suspected Problems (Last Updated 09/22/18 @ 15:59 by Alyce Coffman NP-C) Status post craniotomy (Acute) Subjective: Per nursing patient prn Ativan for insomnia was effective for patient to rest. Per nursing patient increased tearfulness D/T pathology results that had been discussed previously. Per daughter POA and pt ok to start lexapro and history of depression. Patient or dtr denied further questions or concerns. - Physical Exam General: Alert - x2 self and place, redirects easily HEENT: Atraumatic, PERRLA Oral: Moist Mucosa Neck: Supple, No JVD Lungs: Clear to auscultation, Normal air movement Cardiovascular: Regular rate, Regular Rhythm Abdomen: Bowel Sounds Present, Soft, Non Tender Extremities: No clubbing, No cyanosis, Edema - minimal edema to left temporal and left cheek Skin: Incision - sutures intact to left temporal area, without redness or drng. Musculoskeletal: No Tenderness to Palpation of Joints or Extremities Neurological: - - Cranial nerves II-XII grossly intact - receptive and expressive aphasia and takes more time to process and follow simple commands. Speech improving, Deep Tendon Reflexes 2+/4 and Symmetrical, Motor Exam 5/5 strength throughout Psych/Mental Status: Normal Affect, Appropriate, - - a/o x2 self and place, easily redirects Vital Signs Temp Pulse Resp BP Pulse Ox 98.0 F 65 18 151/79 H 94 09/29/18 07:35 09/29/18 07:35 09/29/18 07:35 09/29/18 07:35 09/29/18 07:35 Oxygen Delivery Method Room Air Weight: 62.2 kg Body Mass Index (BMI) 26.9 Intake and Output for Last 24 Hours 09/27/18 09/28/18 09/29/18 23:59 23:59 23:59 Intake Total 360 / 360 360 / 360 Balance 360 / 360 360 / 360 POC Glucose 09/29/18 09/28/18 09/28/18 06:02 21:04 16:56 POC Glucose 234 H 228 H 167 H 09/28/18 11:21 POC Glucose 116 H Medical Necessity - Tobacco Use Smoking Status: Former smoker Assessment/Plan All Active Problems (Last Updated 09/22/18 @ 15:59 by Alyce Coffman NP-C) Lower gastrointestinal bleeding (Acute) Left sided colitis (Acute) Abnormal CT of the chest (Acute) Status post craniotomy (Acute) The patient is a 68 year old F with PMH hypertension, hyperlipidemia, COPD, IHSAN, depression, anxiety, asthma, anemia, hypothyroidism, GERD, HX of lung cancer post thoracotomy in 2015 admitted to inpatient rehab on 09/22/2018 for debility secondary s/p left sided craniotomy for tumor resection for greater of 3 hours of therapy daily with a goal of returning back home at or near her prior level of functional dependence. Patient has had a history of headaches, word finding difficulties and blurred vision and a MRI was obtained which revealed enhancing lesion in the left posterior superior lobe with surrounding edema measuring 2.6 x 1.6 cm in size. Patient was referred to Dr. Aaron Lamar at [facility] where he performed a left-sided craniotomy with 5 ALA for tumor resection on September 19, 2018. Postoperative diagnosis per report malignant glioma. A postop CT scan was done on July 22, 20192018 Impression: postoperative changes at the craniotomy and within the margins of the left posterior temporal cortical resection site there were no evidence of focal infarction or hemorrhage or no evidence of residual or recurrent tumor. Prior to surgery patient lived at home alone she is independent with all of her mobility and ADL needs and was driving. Patient lives in 1 level house with first-floor set up and 2 steps to enter the house Has a flight of steps to the basement, which she does not usually go down to the basement. Plan - PT for mobility - OT for ADLs - ST for cognition/speech - Bowel protocol - Analgesics as needed - S/P craniotomy on dexamethasone taper, levetiracetam has appt on September with Dr. Lamar - HTN on felodipine - Anxiety on lexapro - Depression start lexapro - Hypothyroidism on levothyroxine - GERD on Protonix - Hyperlipidemia on atorvastatin - Glioblastoma stage IV per pathology report follow with Dr. Maguire - GI/DVT prophylaxis on Protonix/Heparin 5,000 SQ TID, knee high teds, SCDs, - Fall precautions - Further medical management per hospitalist recommendation, hospitalist consult - F/U with PCP and Neurosurgeon
[2018-09-29] MEDS: Escitalopram Oxalate 10 MG Tablet PO (11:22)
[2018-09-29 11:35] LABS: Bedside Glucose 181 mg/dL (70-110)
[2018-09-29] MEDS: Glucerna Shake 120 ML LIQUID PO ×2 (13:51→20:49)
[2018-09-29 17:35] LABS: Bedside Glucose 255 mg/dL (70-110)
[2018-09-29] MEDS: Acetaminophen 325 MG Tablet 650 MG PO (19:43)
[2018-09-29] MEDS: Senna/Docusate Sodium 1 Tablet 2 TABLET PO (20:49)
[2018-09-29] MEDS: LORazepam 0.5 MG Tablet PO (20:49)
[2018-09-29] MEDS: Glycerin/Hypromellose/PEG400 15 ml Bottle 1 DRP EACH EYE (20:51)
[2018-09-29 21:25] LABS: Bedside Glucose 276 mg/dL (70-110)
[2018-09-29 22:00] VITALS: BP 129/70; PULSE 91; RESP 16; TEMP 36.3; O2SAT 97
--- NOTE | 2018-09-30 00:46 | NURSING ---
Reviewed and agree with LPNs fims and handoff
[2018-09-30] MEDS: Levothyroxine 50 MCG Tablet PO (05:41)
[2018-09-30 06:36] LABS: Bedside Glucose 143 mg/dL (70-110)
[2018-09-30 07:00] VITALS: BP 119/74; PULSE 71; RESP 18; TEMP 36.6; O2SAT 96
[2018-09-30] MEDS: Enoxaparin 40 MG/0.4 ML Syringe SC (08:21)
[2018-09-30] MEDS: dexAMETHasone 4 MG Tablet PO ×2 (08:21→17:18)
[2018-09-30] MEDS: levETIRAcetam 500 MG Tablet PO ×2 (08:22→21:25)
[2018-09-30] MEDS: Escitalopram Oxalate 10 MG Tablet PO (08:22)
[2018-09-30] MEDS: amLODIPine 10 MG Tablet PO (08:23)
[2018-09-30] MEDS: Pantoprazole Sodium 40 MG Tablet PO (08:23)
[2018-09-30] MEDS: Insulin Lispro 100 UNIT/ML INSULN.PEN SQ ×2 (11:57→17:17)
[2018-09-30 12:11] LABS: Bedside Glucose 162 mg/dL (70-110)
--- NOTE | 2018-09-30 13:41 | PCM.PN.HOSP ---
Patient Problems: Active and Suspected Problems (Last Updated 09/22/18 @ 15:59 by Alyce Coffman, SURGICAL ASSISTANT CERTIFIED-C) Status post craniotomy (Acute) Subjective: No new complaints. Vitals/I&O's: Vital Signs Temp Pulse Resp BP Pulse Ox 36.6 C 71 18 119/74 96 09/30/18 07:00 09/30/18 07:00 09/30/18 07:00 09/30/18 07:00 09/30/18 07:00 Oxygen Delivery Method Room Air Weight: 62.2 kg Body Mass Index (BMI) 26.9 Intake and Output for Last 24 Hours 09/28/18 09/29/18 09/30/18 23:59 23:59 23:59 Intake Total 720 / 720 720 / 720 Balance 720 / 720 720 / 720 General: Alert, No apparent distress, - - expressive aphasia HEENT: Atraumatic, Normocephalic Oral: Moist Mucosa, No Gingival or Mucosal Lesions/ Ulcerations Neck: No Nodes, Thyroid Normal Size and Texture Lungs: Clear to auscultation, Normal air movement, No rhonchi, No wheeze Cardiovascular: Regular rate, Regular Rhythm, Normal S1, Normal S2, No murmurs Abdomen: Bowel Sounds Present, Soft, Non Tender, Non-Distended, No Hepato-splenomegaly Extremities: No edema, No Calf Tenderness Skin: No rashes, No breakdown Laboratory Results 09/29/18 17:24: POC Glucose 255 H 09/29/18 20:53: POC Glucose 276 H 09/30/18 06:29: POC Glucose 143 H 09/30/18 11:57: POC Glucose 162 H Current Medications Acetaminophen (Tylenol) 650 mg PO Q6H PRN PRN PRN Reason: Mild Pain (0-3/10)/Headache Last Admin: 09/29/18 19:43 Dose: 650 mg Amlodipine Besylate (Norvasc) 10 mg PO DAILY [facility] Last Admin: 09/30/18 08:23 Dose: 10 mg Atorvastatin Calcium (Lipitor) 10 mg PO QHS [facility] Last Admin: 09/22/18 20:58 Dose: 10 mg Bisacodyl (Dulcolax) 10 mg RECTAL .PRN X 1 PRN PRN Reason: Constipation [facility] Stop: 10/02/18 17:01 Last Admin: 09/30/18 08:21 Dose: 4 mg [facility]) [facility] Dextrose (D50w Syringe) 0 gm IV X1 PRN; Protocol PRN Reason: Hypoglycemia Enoxaparin Sodium (Lovenox) 40 mg SC DAILY [facility] Last Admin: 09/30/18 08:21 Dose: 40 mg Escitalopram Oxalate (Lexapro) 10 mg PO DAILY [facility] Last Admin: 09/30/18 08:22 Dose: 10 mg Glucagon () 1 mg IM .X1 PRN PRN Reason: Hypoglycemia Insulin Glargine (Lantus (Bk)) 15 units SC QHS [facility] Insulin Human Lispro (Humalog Kwikpen ([facility])) 0 unit SQ TIDAC [facility]; Protocol Last Admin: 09/30/18 11:57 Dose: 1 u Levetiracetam (Keppra Tablet) 500 mg PO BID [facility] Last Admin: 09/30/18 08:22 Dose: 500 mg Levothyroxine Sodium (Synthroid) 50 mcg PO DAILY@0600 [facility] Last Admin: 09/30/18 05:41 Dose: 50 mcg Lorazepam (Ativan) 0.5 mg PO QHS PRN PRN PRN Reason: RESTLESSNESS Last Admin: 09/29/18 20:49 Dose: 0.5 mg Magnesium Hydroxide (Milk Of Magnesia) 30 ml PO .PRN X 1 PRN PRN Reason: Constipation Last Admin: 09/22/18 18:52 Dose: 30 ml Nutritional Formula (Lactose Free) (Glucerna Shake) 120 ml PO 4X/DAY [facility] Last Admin: 09/30/18 13:39 Dose: Not Given Ondansetron HCl (Zofran Odt) 4 mg PO Q8H PRN PRN PRN Reason: NAUSEA Last Admin: 09/23/18 07:38 Dose: 4 mg Oxycodone HCl (Oxyir) 5 mg PO Q6H PRN PRN PRN Reason: SEVERE PAIN (6-10/10) Last Admin: 09/23/18 07:38 Dose: 5 mg Pantoprazole Sodium (Protonix) 40 mg PO DAILY [facility] Last Admin: 09/30/18 08:23 Dose: 40 mg Senna/Docusate Sodium (Senokot-S, Yulissa-Colace) 2 tablet PO BID [facility] Last Admin: 09/30/18 08:23 Dose: Not Given Medical Necessity - Tobacco Use Smoking Status: Former smoker Assessment/Plan All Active Problems (Last Updated 09/22/18 @ 15:59 by Alyce Coffman, SURGICAL ASSISTANT CERTIFIED-C) Lower gastrointestinal bleeding (Acute) Left sided colitis (Acute) Abnormal CT of the chest (Acute) Status post craniotomy (Acute) 1. S/P left craniotomy informed it was GBM oncology consulted follow up with Dr. Lamar at on the on Decadron taper Keppra for szr prophylaxis still with expressive aphasia (able to speak fluidly, but confabulatory at times) 2. DM2 exacerbated by steroids still high, so will increase basal from 10 to 15. 3. VTE prophy: LMWH DW family at bedside. Code Visit Inpatient E&M: 97285 Subs Hosp L2
[2018-09-30 15:19] VITALS: BP 151/84; PULSE 80; RESP 18; TEMP 36.6; O2SAT 98
--- NOTE | 2018-09-30 15:20 | NURSING ---
Patient c/o feeling shaky, nauseated, and sweaty. BS and VS WNL and neuro assessment wnl. HR regular rhythm. This nurse discussed with family about starting lexapro yesterday and that patient and daughter who was present unaware of why she had an allergy to Celexa from prior and that allergy was dc'd and Lexapro started by ASSOCIATE LOAN OFFICER yesterday. Family and patient wished for med to be dc'd due to this may be why she feels funny as patient stated.
--- NOTE | 2018-09-30 15:28 | NURSING ---
Dr. Fuchs aware of patient's symptoms and Lexapro dc'd. Patient currently resting in bed after assisted by staff to rest. No further complaints.
[2018-09-30 15:56] LABS: Bedside Glucose 250 mg/dL (70-110)
[2018-09-30 17:25] LABS: Bedside Glucose 160 mg/dL (70-110)
[2018-09-30 21:16] LABS: Bedside Glucose 308 mg/dL (70-110)
[2018-09-30 21:23] VITALS: BP 145/69; PULSE 83; RESP 18; TEMP 36.6; O2SAT 95
[2018-09-30] MEDS: Glucerna Shake 120 ML LIQUID PO (21:25)
[2018-09-30] MEDS: Senna/Docusate Sodium 1 Tablet 2 TABLET PO (21:26)
[2018-09-30] MEDS: LORazepam 0.5 MG Tablet PO (21:28)
[2018-09-30] MEDS: Glycerin/Hypromellose/PEG400 15 ml Bottle 1 DRP EACH EYE (21:29)
--- NOTE | 2018-09-30 22:25 | NURSING ---
Reviewed and agree with LPNs fim and handoff
[2018-10-01] MEDS: Levothyroxine 50 MCG Tablet PO (05:52)
[2018-10-01 06:30] LABS: Bedside Glucose 204 mg/dL (70-110)
[2018-10-01 08:04] VITALS: BP 149/69; PULSE 74; RESP 16; TEMP 36.8; O2SAT 94
[2018-10-01] MEDS: Insulin Lispro 100 UNIT/ML INSULN.PEN SQ ×2 (08:11→16:54)
[2018-10-01] MEDS: Enoxaparin 40 MG/0.4 ML Syringe SC (08:12)
[2018-10-01] MEDS: Glucerna Shake 120 ML LIQUID PO ×3 (08:12→16:55)
[2018-10-01] MEDS: dexAMETHasone 4 MG Tablet PO ×2 (08:12→16:53)
[2018-10-01] MEDS: Pantoprazole Sodium 40 MG Tablet PO (08:12)
[2018-10-01] MEDS: amLODIPine 10 MG Tablet PO (08:12)
[2018-10-01] MEDS: Senna/Docusate Sodium 1 Tablet 2 TABLET PO (08:12)
[2018-10-01] MEDS: levETIRAcetam 500 MG Tablet PO ×2 (08:12→21:22)
[2018-10-01 11:55] LABS: Bedside Glucose 94 mg/dL (70-110)
--- NOTE | 2018-10-01 13:43 | NURSING ---
assisted into WC, daughter took outside.
[2018-10-01 17:06] LABS: Bedside Glucose 248 mg/dL (70-110)
--- NOTE | 2018-10-01 17:23 | NURSING ---
reviewed and agree with LINE ERECTOR APPRENTICE's FIMS and charting.
[2018-10-01 20:00] VITALS: BP 145/87; PULSE 78; RESP 16; TEMP 37.1; O2SAT 93
[2018-10-01] MEDS: LORazepam 0.5 MG Tablet PO (21:22)
[2018-10-01 21:40] LABS: Bedside Glucose 236 mg/dL (70-110)
[2018-10-02] MEDS: Levothyroxine 50 MCG Tablet PO (05:39)
[2018-10-02 06:55] LABS: Bedside Glucose 91 mg/dL (70-110)
[2018-10-02 08:11] VITALS: BP 156/74; PULSE 74; RESP 18; TEMP 36.4; O2SAT 93
[2018-10-02] MEDS: dexAMETHasone 4 MG Tablet PO ×2 (08:16→17:03)
[2018-10-02] MEDS: Glucerna Shake 120 ML LIQUID PO ×2 (08:16→13:22)
[2018-10-02] MEDS: levETIRAcetam 500 MG Tablet PO ×2 (08:17→20:58)
[2018-10-02] MEDS: Enoxaparin 40 MG/0.4 ML Syringe SC (08:17)
[2018-10-02] MEDS: Pantoprazole Sodium 40 MG Tablet PO (08:17)
[2018-10-02] MEDS: amLODIPine 10 MG Tablet PO (08:17)
--- NOTE | 2018-10-02 10:57 | PN.NEURO_ITS ---
Patient Problems: Active and Suspected Problems (Last Updated 09/22/18 @ 15:59 by Alyce Coffman, BULLDOZER ENGINEER-C) Status post craniotomy (Acute) Subjective: Per nursing no issues overnight. On 09/30/2018 Evan was d/c d/t c/o feeling shaky, nauseated, and sweaty. Bedside glucose was 250 and had no further symptoms. Per patient she slept well. Patient's speech and flow is improving during conversation. Patient verbalized she is tolerating therapy well and denied further questions or concerns. - Physical Exam General: Alert - x2, self and place, unaware of date/year reorients easiily HEENT: Atraumatic Oral: Moist Mucosa Neck: Supple, No JVD Lungs: Clear to auscultation, Normal air movement Cardiovascular: Regular rate, Regular Rhythm Abdomen: Bowel Sounds Present, Soft, Non Tender Extremities: No clubbing, No cyanosis, Edema - minimal to left cheek and neck. Skin: Incision - sutures intact to left temporal area, without redness or drng, - - ecchymotic area improving to left cheek and neck Musculoskeletal: No Tenderness to Palpation of Joints or Extremities Neurological: Cranial nerves II-XII grossly intact, Deep Tendon Reflexes 2+/4 and Symmetrical, Motor Exam 5/5 strength throughout, - - receptive and expressive aphasia and needs little extra time to process and follow simple commands. Speech improving. Psych/Mental Status: Normal Affect, Appropriate, - - self and place only, redirects easily Vital Signs Temp Pulse Resp BP Pulse Ox 97.5 F L 74 18 156/74 H 93 10/02/18 08:11 10/02/18 08:11 10/02/18 08:11 10/02/18 08:11 10/02/18 08:11 Oxygen Delivery Method Room Air Weight: 62.2 kg Body Mass Index (BMI) 26.9 Intake and Output for Last 24 Hours 09/30/18 10/01/18 10/02/18 23:59 23:59 23:59 Intake Total 1080 / 1080 720 / 720 240 / 240 Balance 1080 / 1080 720 / 720 240 / 240 POC Glucose 10/02/18 10/01/18 10/01/18 06:45 19:51 16:52 POC Glucose 91 236 H 248 H 10/01/18 11:10 POC Glucose 94 Medical Necessity - Tobacco Use Smoking Status: Former smoker Assessment/Plan All Active Problems (Last Updated 09/22/18 @ 15:59 by Alyce Coffman, BULLDOZER ENGINEER-C) Lower gastrointestinal bleeding (Acute) Left sided colitis (Acute) Abnormal CT of the chest (Acute) Status post craniotomy (Acute) The patient is a 68 year old F with PMH hypertension, hyperlipidemia, COPD, IHSAN, depression, anxiety, asthma, anemia, hypothyroidism, GERD, HX of lung cancer post thoracotomy in 2014 admitted to inpatient rehab on 09/22/2018 for debility secondary s/p left sided craniotomy for tumor resection for greater of 3 hours of therapy daily with a goal of returning back home at or near her prior level o f functional dependence. Patient has had a history of headaches, word finding difficulties and blurred vision and a MRI was obtained which revealed enhancing lesion in the left posterior superior lobe with surrounding edema measuring 2.6 x 1.6 cm in size. Patient was referred to Dr. Aaron Lamar at [facility] where he performed a left-sided craniotomy with 5 ALA for tumor resection on September 19, 2018. Postoperative diagnosis per report malignant glioma. A postop CT scan was done on July 22, 20192018 Impression: postoperative changes at the craniotomy and within the margins of the left posterior temporal cortical resection site there were no evidence of focal infarction or hemorrhage or no evidence of residual or recurrent tumor. Prior to surgery patient lived at home alone she is independent with all of her mobility and ADL needs and was driving. Patient lives in 1 level house with first-floor set up and 2 steps to enter the house Has a flight of steps to the basement, which she does not usually go down to the basement. Plan - PT for mobility - OT for ADLs - ST for cognition/speech - Bowel protocol - Analgesics as needed - S/P craniotomy on dexamethasone taper, levetiracetam has appt on September with Dr. Lamar - HTN on felodipine - Anxiety - Depression lexapro d/c - Hypothyroidism on levothyroxine - GERD on Protonix - Hyperlipidemia on atorvastatin - Glioblastoma stage IV per pathology report follow with Dr. 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 Lantus added - hospitalist following - GI/DVT prophylaxis on Protonix/Heparin 5,000 SQ TID, knee high teds, SCDs, - Fall precautions - Further medical management per hospitalist recommendation, hospitalist consult - F/U with PCP and Neurosurgeon
--- NOTE | 2018-10-02 11:21 | PCM.PN.HOSP ---
Patient Problems: Active and Suspected Problems (Last Updated 09/22/18 @ 15:59 by Alyce Coffman, WASTE WATER PLANT OPERATOR-C) Status post craniotomy (Acute) Subjective: Patient seen and examined. She had no complaints. Review of systems otherwise negative. Vitals/I&O's: Vital Signs Temp Pulse Resp BP Pulse Ox 97.5 F L 74 18 156/74 H 93 10/02/18 08:11 10/02/18 08:11 10/02/18 08:11 10/02/18 08:11 10/02/18 08:11 Oxygen Delivery Method Room Air Weight: 137 lb 2.04 oz Body Mass Index (BMI) 26.9 Intake and Output for Last 24 Hours 09/30/18 10/01/18 10/02/18 23:59 23:59 23:59 Intake Total 1080 / 1080 720 / 720 240 / 240 Balance 1080 / 1080 720 / 720 240 / 240 General: Alert, Oriented x3, Cooperative, No apparent distress HEENT: Atraumatic, PERRLA, EOMI, Normocephalic Oral: Moist Mucosa Neck: Supple, No JVD, Negative Carotid Bruits Lungs: Clear to auscultation, Normal air movement, No rhonchi, No wheeze, No rales Cardiovascular: Regular rate, Regular Rhythm, Normal S1, Normal S2, No murmurs Abdomen: Bowel Sounds Present, Soft, Non Tender, Non-Distended, No Hepato-splenomegaly Extremities: No clubbing, No cyanosis, No edema, Capillary Refill Less than 3 Seconds Skin: No rashes Musculoskeletal: No Tenderness to Palpation of Joints or Extremities Lymphatic: No Cervical, Supraclavicular, or Inguinal Adenopathy Neurological: Cranial nerves II-XII grossly intact, - - minimal expressive aphasia Psych/Mental Status: Normal Affect, Appropriate, Alert and oriented to time, place, person, mood and affect Laboratory Results 10/01/18 11:10: POC Glucose 94 10/01/18 16:52: POC Glucose 248 H 10/01/18 19:51: POC Glucose 236 H 10/02/18 06:45: POC Glucose 91 Current Medications Acetaminophen (Tylenol) 650 mg PO Q6H PRN PRN PRN Reason: Mild Pain (0-3/10)/Headache Last Admin: 09/29/18 19:43 Dose: 650 mg Amlodipine Besylate (Norvasc) 10 mg PO DAILY [facility] Last Admin: 10/02/18 08:17 Dose: 10 mg Atorvastatin Calcium (Lipitor) 10 mg PO QHS [facility] Last Admin: 09/22/18 20:58 Dose: 10 mg Bisacodyl (Dulcolax) 10 mg RECTAL .PRN X 1 PRN PRN Reason: Constipation Dexamethasone (Decadron) 4 mg PO BIDCM [facility] Stop: 10/02/18 17:01 Last Admin: 10/02/18 08:16 Dose: [facility] Dextrose (D50w Syringe) 0 gm IV X1 PRN; Protocol PRN Reason: Hypoglycemia Enoxaparin Sodium (Lovenox) 40 mg SC DAILY [facility] Last Admin: 10/02/18 08:17 Dose: 40 mg Glucagon () 1 mg IM .X1 PRN PRN Reason: Hypoglycemia Insulin Glargine (Lantus (Bk)) 15 units SC QHS [facility] Last Admin: 10/01/18 21:22 Dose: 15 u Insulin Human Lispro (Humalog Kwikpen (Bk)) 0 unit SQ TIDAC [facility]; Protocol Last Admin: 10/02/18 07:43 Dose: Not Given Levetiracetam (Keppra Tablet) 500 mg PO BID [facility] Last Admin: 10/02/18 08:17 Dose: 500 mg Levothyroxine Sodium (Synthroid) 50 mcg PO DAILY@0600 [facility] Last Admin: 10/02/18 05:39 Dose: 50 mcg Lorazepam (Ativan) 0.5 mg PO QHS PRN PRN PRN Reason: RESTLESSNESS Last Admin: 10/01/18 21:22 Dose: 0.5 mg Magnesium Hydroxide (Milk Of Magnesia) 30 ml PO .PRN X 1 PRN PRN Reason: Constipation Last Admin: 09/22/18 18:52 Dose: 30 ml Nutritional Formula (Lactose Free) (Glucerna Shake) 120 ml PO 4X/DAY [facility] Last Admin: 10/02/18 08:16 Dose: 120 ml Ondansetron HCl (Zofran Odt) 4 mg PO Q8H PRN PRN PRN Reason: NAUSEA Last Admin: 09/23/18 07:38 Dose: 4 mg Oxycodone HCl (Oxyir) 5 mg PO Q6H PRN PRN PRN Reason: SEVERE PAIN (-02/22) Last Admin: 09/23/18 07:38 Dose: 5 mg Pantoprazole Sodium (Protonix) 40 mg PO DAILY [facility] Last Admin: 10/02/18 08:17 Dose: 40 mg Senna/Docusate Sodium (Senokot-S, Yulissa-Colace) 2 tablet PO BID [facility] Last Admin: 10/02/18 08:17 Dose: Not Given Medical Necessity - Tobacco Use Smoking Status: Former smoker Assessment/Plan All Active Problems (Last Updated 09/22/18 @ 15:59 by Alyce Coffman, WASTE WATER PLANT OPERATOR-C) Lower gastrointestinal bleeding (Acute) Left sided colitis (Acute) Abnormal CT of the chest (Acute) Status post craniotomy (Acute) 1. S/P left craniotomy due to glioblastoma multiforme oncology consulted follow up with Dr. Lamar at on the on Decadron taper Keppra for seizure prophylaxis 2. DM2 has been having hyperglycemia due to her being on decadrone basal insulin icreased from 10Iu to 15Iu qhs ISS. Accuchecks ACHs 3. Hypertension: On amlodipine 4. Hyperlipidemia: On statin. 5. Hypothyroidism: On Synthroid. DVT prophylaxis: lovenox Code Visit Inpatient E&M: 96011 Subs Hosp L2
[2018-10-02 11:55] LABS: Bedside Glucose 103 mg/dL (70-110)
--- NOTE | 2018-10-02 14:31 | NURSING ---
pt off floor and outside with therapist when pt tripped and had to be lowered to the ground to knee. pt has no c/o pain or discomfort. Vitals obtained and WNL. pt has no visible injuries, and stated that she was okay. will continue to monitor.
[2018-10-02 14:35] VITALS: BP 139/75; PULSE 86; RESP 18; TEMP 36.6; O2SAT 97
--- NOTE | 2018-10-02 15:00 | NURSING ---
Dr. Parsons and Alyce Coffman WREATH AND GARLAND MAKER HAND notified of patient's assisted fall and family also aware. Patient has xrays ordered, Continues to deny pain. Family also aware of upcoming appts with surgeon on 10/[address] Maguire on 10/04.
--- NOTE | 2018-10-02 15:03 | RAD_ITS ---
STUDY: X-RAY - LEFT KNEE REASON FOR EXAM: Female, 68 years old. Knee pain TECHNIQUE: 4 view(s) of the knee. COMPARISON: None. FINDINGS: There are small osteophytes. There are no fractures. There is mild osteopenia.. There is no soft tissue edema. RAD/Knee 4 or More Views IMPRESSION: Mild soft tissue edema, no fractures Mild osteoarthrosis Generalized osteopenia Electronically Signed: Troy Torres, at 16:04 EDT Tel , Service support ,
--- NOTE | 2018-10-02 15:13 | RAD_ITS ---
STUDY: X-RAY - RIGHT KNEE REASON FOR EXAM: Female, 68 years old. Pain TECHNIQUE: 4 view(s) of the knee. COMPARISON: None. FINDINGS: There is mild soft tissue edema. There are small osteophytes. There are no acute fractures. There is mild osteopenia. RAD/Knee 4 or More Views IMPRESSION: Mild soft tissue edema Mild osteoarthrosis Generalized osteopenia No fractures Electronically Signed: Troy Torres, at 16:06 EDT Tel , Service support ,
--- NOTE | 2018-10-02 15:29 | RAD_ITS ---
STUDY: X-RAY - PELVIS AND BILATERAL HIPS REASON FOR EXAM: Female, 68 years old. Pain, TECHNIQUE: AP view of the pelvis.? 2 views of the right hip, and 2 views of the left hip were obtained. COMPARISON: None. FINDINGS: There is a non-specific bowel gas pattern. Normal visualized soft tissue structures. Normal bilateral iliac wings, sacroiliac joints and visualized sacrum. Normal bilateral superior and inferior pubic rami. There is mild sclerosis of the pubic symphysis. There is mild osteopenia. Normal bilateral ischial tuberosities. Normal visualized right femoral head. Normal right acetabulum. Normal right hip joint. Normal visualized left femoral head. Normal left acetabulum. Normal left hip joint. There is mild sclerosis lower lumbar spine. RAD/Hips B/L min 2 views w/ Pelvis IMPRESSION: Mild degenerative changes of the pubic symphysis and mild degenerative changes of the lower lumbar spine No fractures Electronically Signed: Troy Torres, at 16:10 EDT Tel , Service support ,
[2018-10-02] MEDS: Insulin Lispro 100 UNIT/ML INSULN.PEN SQ (17:12)
[2018-10-02 18:30] LABS: Bedside Glucose 241 mg/dL (70-110)
[2018-10-02 18:36] VITALS: BP 149/76; PULSE 78; RESP 16; TEMP 36.8; O2SAT 97
[2018-10-02 20:21] LABS: Bedside Glucose 197 mg/dL (70-110)
[2018-10-02] MEDS: LORazepam 0.5 MG Tablet PO (20:58)
[2018-10-02 21:00] VITALS: PULSE 78; RESP 16; O2SAT 97
--- NOTE | 2018-10-03 01:48 | NURSING ---
Reviewed and agree with ROUTER TENDER documentation and FIMs charting.
[2018-10-03] MEDS: Levothyroxine 50 MCG Tablet PO (05:26)
[2018-10-03 06:01] LABS: Bedside Glucose 124 mg/dL (70-110)
[2018-10-03 07:01] VITALS: BP 150/80; PULSE 79; RESP 17; TEMP 36.7; O2SAT 94
[2018-10-03] MEDS: Enoxaparin 40 MG/0.4 ML Syringe SC (07:52)
[2018-10-03] MEDS: Pantoprazole Sodium 40 MG Tablet PO (07:52)
[2018-10-03] MEDS: dexAMETHasone 4 MG Tablet 2 MG PO ×2 (07:52→17:29)
[2018-10-03] MEDS: amLODIPine 10 MG Tablet PO (07:52)
[2018-10-03] MEDS: levETIRAcetam 500 MG Tablet PO ×2 (07:53→21:12)
--- NOTE | 2018-10-03 11:00 | PCM.PN.NEU ---
Patient Problems: Active and Suspected Problems (Last Updated 09/22/18 @ 15:59 by Alyce Coffman, MARCO ANTONIO-C) Status post craniotomy (Acute) Subjective: Per nursing on 10/02/18, during therapy, patient was ambulating outside with walker with therapist and tripped and was assisted to lowering on knees. Patient denied pain or injury, nor none noted. X-rays obtained. Left knee x-ray Mild soft tissue edema, no fractures, Mild osteoarthrosis, Generalized osteopenia. Right knee x-ray; Mild soft tissue edema, Mild osteoarthrosis, Generalized osteopenia, No fractures. Bilateral hip/pelvis x-ray; Mild degenerative changes of the pubic symphysis and mild degenerative changes of the lower lumbar spine, No fractures. Patient will be discharged home with family on 10/04/2018. - Physical Exam General: Alert - self and city only, unaware of date, Cooperative HEENT: Atraumatic, PERRLA Oral: Moist Mucosa Neck: Supple, No JVD Lungs: Clear to auscultation, Normal air movement Cardiovascular: Regular rate, Regular Rhythm Abdomen: Bowel Sounds Present, Soft, Non Tender Extremities: No clubbing, No cyanosis, Edema - minimal to left cheek and neck Skin: Incision - sutures intact, without redness or drng, - - ecchymotic areas to left cheek and neck- healing Neurological: Cranial nerves II-XII grossly intact, Deep Tendon Reflexes 2+/4 and Symmetrical, Motor Exam 5/5 strength throughout, - - receptive and expressive aphasia and needs little extra time to process and follow simple commands. Speech improving Psych/Mental Status: Normal Affect, Appropriate, - - oriented to self and city, uanware of date/month. reorients and redirects easily Vital Signs Temp Pulse Resp BP Pulse Ox 98.0 F 79 17 150/80 H 94 10/03/18 07:01 10/03/18 07:01 10/03/18 07:01 10/03/18 07:01 10/03/18 07:01 Oxygen Delivery Method Room Air Weight: 62.2 kg Body Mass Index (BMI) 26.9 Intake and Output for Last 24 Hours 10/01/18 10/02/18 10/03/18 23:59 23:59 23:59 Intake Total 720 / 720 240 / 240 240 / 240 Balance 720 / 720 240 / 240 240 / 240 POC Glucose 10/03/18 10/02/18 10/02/18 05:51 20:00 17:12 POC Glucose 124 H 197 H 241 H 10/02/18 11:21 POC Glucose 103 Medical Necessity - Tobacco Use Smoking Status: Former smoker Assessment/Plan All Active Problems (Last Updated 09/22/18 @ 15:59 by Alyce Coffman, SINGLE END SEWER-C) Lower gastrointestinal bleeding (Acute) Left sided colitis (Acute) Abnormal CT of the chest (Acute) Status post craniotomy (Acute) The patient is a 68 year old F with PMH hypertension, hyperlipidemia, COPD, IHSAN, depression, anxiety, asthma, anemia, hypothyroidism, GERD, HX of lung cancer post thoracotomy in 2014 admitted to inpatient rehab on 09/22/2018 for debility secondary s/p left sided craniotomy for tumor resection for greater of 3 hours of therapy daily with a goal of returning back home at or near her prior level of functional dependence. Patient has had a history of headaches, word finding difficulties and blurred vision and a MRI was obtained which revealed enhancing lesion in the left posterior superior lobe with surrounding edema measuring 2.6 x 1.6 cm in size. Patient was referred to Dr. Aaron Lamar at [facility] where he performed a left-sided craniotomy with 5 ALA for tumor resection on September 19, 2018. Postoperative diagnosis per report malignant glioma. A postop CT scan was done on July 22, 2019 2019 Impression: postoperative changes at the craniotomy and within the margins of the left posterior temporal cortical resection site there were no evidence of focal infarction or hemorrhage or no evidence of residual or recurrent tumor. Prior to surgery patient lived at home alone she is independent with all of her mobility and ADL needs and was driving. Patient lives in 1 level house with first-floor set up and 2 steps to enter the house Has a flight of steps to the basement, which she does not usually go down to the basement. Plan - PT for mobility - OT for ADLs - ST for cognition/speech - Bowel protocol - Analgesics as needed - S/P craniotomy on dexamethasone taper, levetiracetam has appt on September with Dr. Lamar - HTN on felodipine - Anxiety - Depression lexapro d/c - Hypothyroidism on levothyroxine - GERD on Protonix - Hyperlipidemia on atorvastatin - Glioblastoma stage IV per pathology report follow with Dr. 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 Lantus added - hospitalist following script for glucometer, lancets and strips provided to daughter - GI/DVT prophylaxis on Protonix/Heparin 5,000 SQ TID, knee high teds, SCDs, - Fall precautions - Further medical management per hospitalist recommendation, hospitalist consult - F/U with PCP, Oncology, Neurosurgeon discharge home on 10/04/18
[2018-10-03 12:15] LABS: Bedside Glucose 145 mg/dL (70-110)
[2018-10-03] MEDS: Acetaminophen 325 MG Tablet 650 MG PO (17:29)
[2018-10-03 17:30] LABS: Bedside Glucose 165 mg/dL (70-110)
[2018-10-03] MEDS: Insulin Lispro 100 UNIT/ML INSULN.PEN SQ (17:31)
--- NOTE | 2018-10-03 18:12 | NURSING ---
CARIDADAna noriega given education on taking her mothers blood sugars and she reported she knows how to take blood sugars and is a diabetic herself so she does not need teaching. MARCO ANTONIO Mead informed daughter to record blood sugar readings while at home and if over 2-300 to call her PCP.
[2018-10-03 18:58] VITALS: BP 145/73; PULSE 77; RESP 16; TEMP 36.7; O2SAT 97
[2018-10-03 20:10] LABS: Bedside Glucose 251 mg/dL (70-110)
[2018-10-03] MEDS: Glucerna Shake 120 ML LIQUID PO (21:12)
[2018-10-03] MEDS: LORazepam 0.5 MG Tablet PO (21:20)
[2018-10-03 22:00] VITALS: PULSE 77; RESP 16; O2SAT 96
[2018-10-04] MEDS: Levothyroxine 50 MCG Tablet PO (05:47)
[2018-10-04 06:30] LABS: Bedside Glucose 110 mg/dL (70-110)
[2018-10-04 07:00] VITALS: BP 145/80; PULSE 75; RESP 17; TEMP 36.6; O2SAT 93
[2018-10-04] MEDS: levETIRAcetam 500 MG Tablet PO ×2 (07:47→21:25)
[2018-10-04] MEDS: Pantoprazole Sodium 40 MG Tablet PO (07:47)
[2018-10-04] MEDS: amLODIPine 10 MG Tablet PO (07:47)
[2018-10-04] MEDS: dexAMETHasone 4 MG Tablet 2 MG PO ×2 (07:47→17:35)
[2018-10-04] MEDS: Enoxaparin 40 MG/0.4 ML Syringe SC (07:48)
[2018-10-04] MEDS: Acetaminophen 325 MG Tablet 650 MG PO (07:48)
[2018-10-04] MEDS: Insulin Lispro 100 UNIT/ML INSULN.PEN SQ ×2 (11:52→17:35)
[2018-10-04 12:10] LABS: Bedside Glucose 153 mg/dL (70-110)
--- NOTE | 2018-10-04 12:58 | PN.NEURO_ITS ---
Patient Problems: Active and Suspected Problems (Last Updated 09/22/18 @ 15:59 by Alyce Coffman NP-C) Status post craniotomy (Acute) Subjective: Per nursing no issues overnight, but noted today white coating starting on patient's tongue and under upper lip. Patient is tolerating therapy well. Patient has appt with Dr. Maguire today. Denies further questions or concerns. - Physical Exam General: Alert - place and name, unware of date/year HEENT: Atraumatic, PERRLA Oral: - - white coating on tongue and under upper lip Neck: Supple, No JVD Lungs: Clear to auscultation, Normal air movement Cardiovascular: Regular rate, Regular Rhythm Abdomen: Bowel Sounds Present, Soft, Non Tender Extremities: No clubbing, No cyanosis, Edema - minimal to left cheek and neck Skin: Incision - sutures intact, without redness or drng Neurological: - - Cranial nerves II-XII grossly intact, Deep Tendon Reflexes 2+/4 and Symmetrical, Motor Exam 5/5 strength throughout, - - receptive and expressive aphasia and needs little extra time to process and follow simple commands. Speech improving Psych/Mental Status: Normal Affect, Appropriate, - - alert to self and place, unware of date/year, easily redirects Vital Signs Temp Pulse Resp BP Pulse Ox 97.9 F 75 17 145/80 H 93 10/04/18 07:00 10/04/18 07:00 10/04/18 07:00 10/04/18 07:00 10/04/18 07:00 Oxygen Delivery Method Room Air Weight: 61.7 kg Body Mass Index (BMI) 26.9 Intake and Output for Last 24 Hours 10/02/18 10/03/18 10/04/18 23:59 23:59 23:59 Intake Total 240 / 240 480 / 480 360 / 360 Balance 240 / 240 480 / 480 360 / 360 POC Glucose 10/04/18 10/04/18 10/03/18 11:50 06:27 20:04 POC Glucose 153 H 110 251 H 10/03/18 17:03 POC Glucose 165 H Medical Necessity - Tobacco Use Smoking Status: Former smoker Assessment/Plan All Active Problems (Last Updated 09/22/18 @ 15:59 by Alyce Coffman NP-C) Lower gastrointestinal bleeding (Acute) Left sided colitis (Acute) Abnormal CT of the chest (Acute) Status post craniotomy (Acute) The patient is a 68 year old F with PMH hypertension, hyperlipidemia, COPD, IHSAN, depression, anxiety, asthma, anemia, hypothyroidism, GERD, HX of lung cancer post thoracotomy in 2014 admitted to inpatient rehab on 09/22/2018 for debility secondary s/p left sided craniotomy for tumor resection for greater of 3 hours of therapy daily with a goal of returning back home at or near her prior level of functional dependence. Patient has had a history of headaches, word finding difficulties and blurred vision and a MRI was obtained which revealed enhancing lesion in the left posterior superior lobe with surrounding edema measuring 2.6 x 1.6 cm in size. Patient was referred to Dr. Aaron Lamar at [facility] where he performed a left-sided craniotomy with 5 ALA for tumor resection on September 19, 2018. Postoperative diagnosis per report malignant glioma. A postop CT scan was done on July 22, 20192018 Impression: postoperative changes at the craniotomy and within the margins of the left posterior temporal cortical resection site there were no evidence of focal infarction or hemorrhage or no evidence of residual or recurrent tumor. Prior to surgery patient lived at home alone she is independent with all of her mobility and ADL needs and was driving. Patient lives in 1 level house with first-floor set up and 2 steps to enter the house Has a flight of steps to the basement, which she does not usually go down to the basement. Plan - PT for mobility - OT for ADLs - ST for cognition/speech - Bowel protocol - Analgesics as needed - S/P craniotomy on dexamethasone taper, levetiracetam has appt on September with Dr. Lamar - HTN on felodipine - Anxiety - Depression lexapro d/c - Hypothyroidism on levothyroxine - GERD on Protonix - Hyperlipidemia on atorvastatin - Glioblastoma stage IV per pathology report follow with Dr. 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 Lantus added - hospitalist following script for glucometer, lancets and strips provided to daughter - GI/DVT prophylaxis on Protonix/Heparin 5,000 SQ TID, knee high teds, SCDs, - Thrush started on nystatin 4x/day - Fall precautions - Further medical management per hospitalist recommendation, hospitalist consult - F/U with PCP, Oncology, Neurosurgeon discharge home on 10/05/18
[2018-10-04] MEDS: NYSTATIN 500,000 UNIT/5 ML UDC 500000 UNIT PO ×3 (14:05→21:25)
--- NOTE | 2018-10-04 14:19 | CASEMGMT ---
Social Work Per staff, pt and family have opted for d/c on 10/05/18. Pt will be returning to her home and daughters will be providing 24 hour care. Therapy is recommending additional outpt PT/OT/ST and pt and family are choosing [facility]. Ref[facility] made and [facility] call pt kathy Preeti to schedule the appointments. Pt has all needed DME. No further SW needs. Plan: D/C 10/05/18 with 24 hour care of family and outpt PT/OT/ST. KODAK Estrada
--- NOTE | 2018-10-04 16:02 | PN_ITS ---
Patient Problems: Active and Suspected Problems (Last Updated 09/22/18 @ 15:59 by Alyce Coffman, STONE BANKER-C) Status post craniotomy (Acute) Subjective: Patient seen and examined. Has no complaints. Review of systems otherwise negative. Vitals/I&O's: Vital Signs Temp Pulse Resp BP Pulse Ox 97.9 F 75 17 145/80 H 93 10/04/18 07:00 10/04/18 07:00 10/04/18 07:00 10/04/18 07:00 10/04/18 07:00 Oxygen Delivery Method Room Air Weight: 136 lb 0.403 oz Body Mass Index (BMI) 26.9 Intake and Output for Last 24 Hours 10/02/18 10/03/18 10/04/18 23:59 23:59 23:59 Intake Total 240 / 240 480 / 480 360 / 360 Balance 240 / 240 480 / 480 360 / 360 General: Alert, Oriented x3, Cooperative, No apparent distress HEENT: Atraumatic, PERRLA, EOMI, Normocephalic Oral: Moist Mucosa Neck: Supple, No JVD, Negative Carotid Bruits Lungs: Clear to auscultation, Normal air movement, No rhonchi, No wheeze, No rales Cardiovascular: Regular rate, Regular Rhythm, Normal S1, Normal S2, No murmurs Abdomen: Bowel Sounds Present, Soft, Non Tender, Non-Distended, No Hepato- splenomegaly Extremities: No clubbing, No cyanosis, No edema, Capillary Refill Less than 3 Seconds Skin: No rashes Musculoskeletal: No Tenderness to Palpation of Joints or Extremities Lymphatic: No Cervical, Supraclavicular, or Inguinal Adenopathy Neurological: Cranial nerves II-XII grossly intact, - - minimal expressive aphasia Psych/Mental Status: Normal Affect, Appropriate, Alert and oriented to time, place, person, mood and affect Laboratory Results 10/03/18 17:03: POC Glucose 165 H 10/03/18 20:04: POC Glucose 251 H 10/04/18 06:27: POC Glucose 110 10/04/18 11:50: POC Glucose 153 H Current Medications Acetaminophen (Tylenol) 650 mg PO Q6H PRN PRN PRN Reason: Mild Pain (0-3/10)/Headache Last Admin: 10/04/18 07:48 Dose: 650 mg Amlodipine Besylate (Norvasc) 10 mg PO DAILY [facility] Last Admin: 10/04/18 07:47 Dose: 10 mg Atorvastatin Calcium (Lipitor) 10 mg PO QHS [facility] Last Admin: 09/22/18 20:58 Dose: 10 mg Bisacodyl (Dulcolax) 10 mg RECTAL .PRN X 1 PRN PRN Reason: Constipation Dexamethasone (Decadron) 2 mg PO BIDCM [facility] Last Admin: 10/04/18 07:47 Dose: 2 mg Dextrose (D50w Syringe) 0 gm IV X1 PRN; Protocol PRN Reason: Hypoglycemia Enoxaparin Sodium (Lovenox) 40 mg SC DAILY [facility] Last Admin: 10/04/18 07:48 Dose: 40 mg Glucagon () 1 mg IM .X1 PRN PRN Reason: Hypoglycemia Insulin Glargine (Lantus (Bk)) 15 units SC QHS [facility] Last Admin: 10/03/18 21:13 Dose: 15 u Insulin Human Lispro (Humalog Kwikpen ([facility])) 0 unit SQ TIDAC [facility]; Protocol Last Admin: 10/04/18 11:52 Dose: 1 u Levetiracetam (Keppra Tablet) 500 mg PO BID [facility] Last Admin: 10/04/18 07:47 Dose: 500 mg Levothyroxine Sodium (Synthroid) 50 mcg PO DAILY@0600 [facility] Last Admin: 10/04/18 05:47 Dose: 50 mcg Lorazepam (Ativan) 0.5 mg PO QHS PRN PRN PRN Reason: RESTLESSNESS Last Admin: 10/03/18 21:20 Dose: 0.5 mg Magnesium Hydroxide (Milk Of Magnesia) 30 ml PO .PRN X 1 PRN PRN Reason: Constipation Last Admin: 09/22/18 18:52 Dose: 30 ml Nutritional Formula (Lactose Free) (Glucerna Shake) 120 ml PO 4X/DAY [facility] Last Admin: 10/04/18 14:04 Dose: Not Given Nystatin (Nystatin) 500,000 unit PO 4X/DAY [facility] Last Admin: 10/04/18 14:05 Dose: 500,000 unit Ondansetron HCl (Zofran Odt) 4 mg PO Q8H PRN PRN PRN Reason: NAUSEA Last Admin: 09/23/18 07:38 Dose: 4 mg Oxycodone HCl (Oxyir) 5 mg PO Q6H PRN PRN PRN Reason: SEVERE PAIN (-02/22) Last Admin: 09/23/18 07:38 Dose: 5 mg Pantoprazole Sodium (Protonix) 40 mg PO DAILY [facility] Last Admin: 10/04/18 07:47 Dose: 40 mg Senna/Docusate Sodium (Senokot-S, Yulissa-Colace) 2 tablet PO BID [facility] Last Admin: 10/04/18 07:48 Dose: Not Given Medical Necessity - Tobacco Use Smoking Status: Former smoker Assessment/Plan All Active Problems (Last Updated 09/22/18 @ 15:59 by Alyce Coffman, STONE BANKER-C) Lower gastrointestinal bleeding (Acute) Left sided colitis (Acute) Abnormal CT of the chest (Acute) Status post craniotomy (Acute) 1. S/P left craniotomy * due to glioblastoma multiforme * oncology consulted * follow up with Dr. Lamar at on the * on Decadron taper * Severiano for seizure prophylaxis * 2. DM2 * has been having hyperglycemia due to her being on decadrone * now on lantus 15IU qhs * ISS. Accuchecks ACHs * 3. Hypertension: On amlodipine 4. Hyperlipidemia: On statin. 5. Hypothyroidism: On Synthroid. DVT prophylaxis: lovenox For likely DC tomorrow Code Visit Inpatient E&M: 54431 Subs Hosp L2
--- NOTE | 2018-10-04 16:16 | DCINST_ITS ---
- Discharge Diagnoses Current Active Problems: Current Active and Chronic Problems (Last Updated 09/22/18 @ 15:59 by Alyce Coffman NP-C) Status post craniotomy (Acute) You will use the following diet at home:: Regular Your food should be the consistency of: Regular Your liquids should be the consistency of: Regular/Thin Discharge Activity: May Not Drive, May Shower, Use Walker Weight Bearing Status: Weight bearing as tolerated Call your doctor if your incision/area has: Continuous Slow Oozing, Sudden Increased Bleeding, Increased Pain/ Swelling, Increased Redness, Foul Smelling Discharge, Swelling at the incision site Call your doctor if you observe: Fever of 101 or Higher, Coldness, Increased Pain, Numbness or Tingling, Change in Color, Inability to urinate, Inability to have a bowel movement, Shortness of breath, Dizziness, Fainting spells, Swelling in the ankles, Chest pain, Prolonged hiccoughing, Increased palpitations (irregular heartbeat), Calf discomfort Additional Instructions: Peniding Liver profile labs, please discuss with your primary care physcian if can start back lipitor Pending Tests on Discharge: Liver function tests Allergies/Adverse Reactions: Allergies doxycycline Allergy (Verified 08/17/18 15:29) Itching cephalexin Adverse Reaction (Verified 08/17/18 15:29) Other escitalopram [From Lexapro] Adverse Reaction (Verified 09/30/18 15:30) Nausea shaky, sweating, tired metoclopramide [From Reglan] Adverse Reaction (Verified 08/17/18 15:29) Other morphine Adverse Reaction (Verified 08/17/18 15:29) Low blood pressure pregabalin Adverse Reaction (Verified 08/17/18 15:29) Other Medications to take at Discharge Felodipine [Plendil] 10 mg PO DAILY 02/13/15 Acetaminophen [Tylenol Tablet] 650 mg PO Q6H PRN PRN tablet 10/04/18 Amlodipine [Norvasc] 10 mg PO DAILY #30 tablet 10/04/18 Dexamethasone [Decadron] 2 mg PO BIDCM #60 tablet 10/04/18 Glucerna Shake 120 ml PO 4X/DAY liquid 10/04/18 Insulin Glargine [Lantus SoloStar Pen] 15 units SC QHS #1 pen 10/04/18 Levothyroxine [Synthroid] 50 mcg PO DAILY@0600 tablet 10/04/18 Nystatin 500,000 unit PO 4X/DAY 7 Days #1 bottle 10/04/18 Pantoprazole Sodium [Protonix] 40 mg PO DAILY #30 tablet 10/04/18 Peg 400/Hypromellose/Glycerin [Artificial Tears] 1 drop EACH EYE Q1H PRN bottle 10/04/18 levETIRAcetam tablet [Keppra tablet] 500 mg PO BID #60 tablet 10/04/18 The following prescriptions were given: Amlodipine [Norvasc] 10 mg PO DAILY #30 tablet Insulin Glargine [Lantus SoloStar Pen] 15 units SC QHS #1 pen Pantoprazole Sodium [Protonix] 40 mg PO DAILY #30 tablet Dexamethasone [Decadron] 2 mg PO BIDCM #60 tablet levETIRAcetam tablet [Keppra tablet] 500 mg PO BID #60 tablet Nystatin 500,000 unit PO 4X/DAY 7 Days #1 bottle Primary Care Physician: Yadira Alston MD [Primary Care Provider] - Test Results: Test results from this visit will be discussed in further detail at your follow- up appointment, if applicable. Please Follow Up With: Dr Alston Please Follow Up With: Dr Lamar When: 10/05/18 Please Follow Up With: [facility] - Physical, Occupational, Speech Therapy When: They will call you to set up an appointment Please Follow Up With: Dr. Maguire Proposed Discharge Date: 10/05/18
--- NOTE | 2018-10-04 16:34 | DS.PCM_ITS ---
Rehab Discharge Summary DATE OF ADMISSION: 09/22/18 DATE OF DISCHARGE: 10/05/18 - Rehab Diagnosis Debility secondary to s/p craniotomy Patient Problems: Active and Suspected Problems (Last Updated 09/22/18 @ 15:59 by Alyce Coffman, OXYGEN PLANT OPERATOR-C) Status post craniotomy (Acute) Subjective: Patient tolerated therapies well and increased strength and mobility. Patient will be discharged home with family on 10/05/18 with outpatient PT/OT/ST. - Physical Exam General: Alert - self and city, not date/year HEENT: Atraumatic, PERRLA Oral: - - white coating on tongue and under upper lip Lungs: Clear to auscultation, Normal air movement Cardiovascular: Regular rate, Regular Rhythm Abdomen: Bowel Sounds Present, Soft, Non Tender Extremities: No clubbing, No cyanosis, Edema - minimal to left cheek and under chin Skin: Incision - sutures intact without redness or drng Neurological: - - Cranial nerves II-XII grossly intact, Deep Tendon Reflexes 2+/4 and Symmetrical, Motor Exam 5/5 strength throughout, - - receptive and expressive aphasia and needs little extra time to process and follow simple commands. Speech improving Psych/Mental Status: Normal Affect, Appropriate, - - alert to self and place, unaware of date/year, easily redirects Vital Signs Temp Pulse Resp BP Pulse Ox 97.9 F 75 17 145/80 H 93 10/04/18 07:00 10/04/18 07:00 10/04/18 07:00 10/04/18 07:00 10/04/18 07:00 Oxygen Delivery Method Room Air Weight: 61.7 kg Body Mass Index (BMI) 26.9 Intake and Output for Last 24 Hours 10/02/18 10/03/18 10/04/18 23:59 23:59 23:59 Intake Total 240 / 240 480 / 480 360 / 360 Balance 240 / 240 480 / 480 360 / 360 POC Glucose 10/04/18 10/04/18 10/03/18 11:50 06:27 20:04 POC Glucose 153 H 110 251 H 10/03/18 17:03 POC Glucose 165 H Discharge Diet: No Restrictions Discharge Activity: May Not Drive, May Shower, Use Walker Weight Bearing Status: Weight bearing as tolerated Call your doctor if your incision/area has: Continuous Slow Oozing, Sudden Increased Bleeding, Increased Pain/ Swelling, Increased Redness, Foul Smelling Discharge, Swelling at the incision site Call your doctor if you observe: Fever of 101 or Higher, Coldness, Increased Pain, Numbness or Tingling, Change in Color, Inability to urinate, Inability to have a bowel movement, Shortness of breath, Dizziness, Fainting spells, Swelling in the ankles, Chest pain, Prolonged hiccoughing, Increased palpitations (irregular heartbeat), Calf discomfort Cleanse incision/area with: Soap & Water Home Medications: Medications to take at Discharge Felodipine [Plendil] 10 mg PO DAILY 02/13/15 Acetaminophen [Tylenol Tablet] 650 mg PO Q6H PRN PRN tablet 10/04/18 Amlodipine [Norvasc] 10 mg PO DAILY #30 tablet 10/04/18 Dexamethasone [Decadron] 2 mg PO BIDCM #60 tablet 10/04/18 Glucerna Shake 120 ml PO 4X/DAY liquid 10/04/18 Insulin Glargine [Lantus SoloStar Pen] 15 units SC QHS #1 pen 10/04/18 Levothyroxine [Synthroid] 50 mcg PO DAILY@0600 tablet 10/04/18 Nystatin 500,000 unit PO 4X/DAY 7 Days #1 bottle 10/04/18 Pantoprazole Sodium [Protonix] 40 mg PO DAILY #30 tablet 10/04/18 Peg 400/Hypromellose/Glycerin [Artificial Tears] 1 drop EACH EYE Q1H PRN bottle 10/04/18 levETIRAcetam tablet [Keppra tablet] 500 mg PO BID #60 tablet 10/04/18 Following Prescrptions Were Given to Patient: Amlodipine [Norvasc] 10 mg PO DAILY #30 tablet Insulin Glargine [Lantus SoloStar Pen] 15 units SC QHS #1 pen Pantoprazole Sodium [Protonix] 40 mg PO DAILY #30 tablet Dexamethasone [Decadron] 2 mg PO BIDCM #60 tablet levETIRAcetam tablet [Keppra tablet] 500 mg PO BID #60 tablet Nystatin 500,000 unit PO 4X/DAY 7 Days #1 bottle Primary Care Physician: Yadira Alston MD [Primary Care Provider] - Please Follow Up With: Dr Alston Please Follow Up With: Dr Lamar When: 10/05/18 Please Follow Up With: [facility] - Physical, Occupational, Speech Therapy When: They will call you to set up an appointment Please Follow Up With: Dr. Maguire Additional Instructions: Lipitor to be restarted at primary care physician discretion, LFTs pending Disposition: Home Patient Condition:: Stable Rehab Course The patient is a 68 year old F with PMH hypertension, hyperlipidemia, COPD, IHSAN, depression, anxiety, asthma, anemia, hypothyroidism, GERD, HX of lung cancer post thoracotomy in 2014 admitted to inpatient rehab on 09/22/2018 for debility secondary s/p left sided craniotomy for tumor resection for greater of 3 hours of therapy daily with a goal of returning back home at or near her prior level of functional dependence. Patient has had a history of headaches, word finding difficulties and blurred vision and a MRI was obtained which revealed enhancing lesion in the left posterior superior lobe with surrounding edema measuring 2.6 x 1.6 cm in size. Patient was referred to Dr. Aaron Lamar at [facility] where he performed a left-sided craniotomy with 5 ALA for tumor resection on September 19, 2018. Postoperative diagnosis per report malignant glioma. A postop CT scan was done on July 22, 20192018 Impression: postoperative changes at the craniotomy and within the margins of the left posterior temporal cortical resection site there were no evidence of focal infarction or hemorrhage or no evidence of residual or recurrent tumor. During Rehab course patient's pathology report; Glioblastoma stage IV, patient had appointment with Oncologist Dr. Maguire on 10/04/18. Patient speech improving with receptive and expressive. Lipitor was held because of ALT level 83, liver functions tests reordered, PCP to follow for possible restart. Patient developed thrush and started on nystatin swish and swallow. Patient was started on Lantus due to DM secondary to steroids. Family training was completed. Patient to continue on dexamethasone and levetiracetam and will F/U with Dr. Lamar on 10/05/18, which then sutures would be removed. On 10/02/18, during therapy, patient was ambulating outside with walker with therapist and tripped and was assisted lowering on knees. Patient denied pain or injury, nor none noted. X-rays obtained. Left knee x-ray Mild soft tissue edema, no fractures, Mild osteoarthrosis, Generalized osteopenia. Right knee x- ray; Mild soft tissue edema, Mild osteoarthrosis, Generalized osteopenia, No fractures. Bilateral hip/pelvis x-ray; Mild degenerative changes of the pubic symphysis and mild degenerative changes of the lower lumbar spine, No fr actures.. Prior to surgery patient lived at home alone, independent with all of her mobility and ADL needs and was driving. Patient lives in 1 level house with first-floor set up and 2 steps to enter the house and a flight of steps to the basement, which she does not usually go down to the basement. Patient will be discharged home with family on 10/05/2018 with outpatient PT/OT/ST, F/U with PCP, Oncology and Neurosurgeon. Meaningful Use Info Meaningful Use Diagnoses (Choose all that apply): None applicable
[2018-10-04 17:56] LABS: Bedside Glucose 205 mg/dL (70-110)
[2018-10-04 19:25] VITALS: BP 118/58; PULSE 90; RESP 16; TEMP 36.8; O2SAT 95
[2018-10-04 20:28] LABS: AST(SGOT) 10 U/L (15-37); Alanine Aminotransfer ALT/SGPT 70 U/L (13-56); Albumin, Serum 2.6 g/dL (3.2-5.0); Alkaline Phosphatase 52 U/L (45-117); Bilirubin, Direct 0.08 mg/dL (0.00-0.30); Globulin 2.7 g/dL (2.2-4.2); Protein, Total 5.3 g/dL (6.4-8.2)
[2018-10-04] MEDS: LORazepam 0.5 MG Tablet PO (21:25)
[2018-10-04 21:36] LABS: Bedside Glucose 187 mg/dL (70-110)
--- NOTE | 2018-10-05 02:48 | NURSING ---
Reviewed and agree with MERCHANDISE FLOW TEAM LEADER documentation and FIMs charting
[2018-10-05] MEDS: Levothyroxine 50 MCG Tablet PO (05:36)
[2018-10-05 06:30] LABS: Bedside Glucose 185 mg/dL (70-110)
[2018-10-05] MEDS: amLODIPine 10 MG Tablet PO (08:17)
[2018-10-05] MEDS: Pantoprazole Sodium 40 MG Tablet PO (08:17)
[2018-10-05] MEDS: dexAMETHasone 4 MG Tablet 2 MG PO (08:17)
[2018-10-05] MEDS: NYSTATIN 500,000 UNIT/5 ML UDC 500000 UNIT PO (08:17)
[2018-10-05] MEDS: levETIRAcetam 500 MG Tablet PO (08:17)
[2018-10-05] MEDS: Insulin Lispro 100 UNIT/ML INSULN.PEN SQ (08:18)
[2018-10-05] MEDS: Enoxaparin 40 MG/0.4 ML Syringe SC (08:18)
[2018-10-05 08:44] VITALS: BP 145/70; PULSE 87; RESP 16; TEMP 36.6; O2SAT 95
[2018-10-05 13:45] VITALS: BP 145/70; PULSE 87; RESP 16; TEMP 36.6; O2SAT 95
--- NOTE | 2018-10-05 13:48 | NURSING ---
This RN went over discharge instructions, medications and appts. with daughter. Daughter verbalized understanding, pt had all personal belongings upon discharge.
== END 2018-10-05 08:30 | disposition home or self-care (01) | DRG 949 ==
PROVIDERS: Internal Medicine; Nurse Practitioner Family; Admitting Provider Psychiatry & Neurology Neurology; Family Provider Family Medicine; PCP Family Medicine; Referring Provider Psychiatry & Neurology Neurology; Visit Provider Student in an Organized Health Care Education/Training Program
DX: Z48.811 Encounter for surgical aftercare following surgery on the nervous system (principal); C71.9 Malignant neoplasm of brain, unspecified; R47.01 Aphasia; B37.0 Candidal stomatitis; K21.9 Gastro-esophageal reflux disease without esophagitis; J44.9 Chronic obstructive pulmonary disease, unspecified; I10 Essential (primary) hypertension; G47.33 Obstructive sleep apnea (adult) (pediatric); E78.5 Hyperlipidemia, unspecified; E03.9 Hypothyroidism, unspecified; F41.9 Anxiety disorder, unspecified; F32.9 Major depressive disorder, single episode, unspecified; Z85.118 Personal history of other malignant neoplasm of bronchus and lung; M79.7 Fibromyalgia; K58.9 Irritable bowel syndrome, unspecified; Z87.891 Personal history of nicotine dependence; E09.65 Drug or chemical induced diabetes mellitus with hyperglycemia; T38.0X5A Adverse effect of glucocorticoids and synthetic analogues, initial encounter
CPT/HCPCS: 36415; 73521; 73564; 76705; 80053; 80074; 80076; 82550; 82962; 83516; 84450; 84460; 85025; 86038; 86140; 86225; 86235; 86256; 92507; 92523; 92526; 92610; 97110; 97112; 97116; 97127; 97162; 97166; 97530; 97535; G0515

== ENCOUNTER 2018-10-20 20:47 | Emergency (ER) | payer MEDICARE, OTHER, SELFPAY ==
[2018-09-22 14:31] VITALS: BMI 26.9
[2018-10-20 20:47] VITALS: BP 125/63; PULSE 94; RESP 18; TEMP 36.4; O2SAT 97; BMI 26.5
--- NOTE | 2018-10-20 22:27 | CT_ITS ---
STUDY: CT ABDOMEN AND PELVIS WITHOUT CONTRAST REASON FOR EXAM: Female, 68 years old. Abdominal tightness and constipation RADIATION DOSAGE (If Supplied By Facility): CTDIvol = ( 7.95 ) mGy, DLP = ( 399.04 ) mGycm TECHNIQUE: Transaxial images were obtained from the dome of the diaphragm to the symphysis pubis without oral contrast, and without intravenous contrast. Sagittal and coronal images were reconstructed. Individualized dose optimization techniques were used for this CT. COMPARISON: June 06, 2018 FINDINGS: Mild emphysematous changes in the lung bases. The liver is normal. No dilated intrahepatic biliary radicles. The gallbladder is normal with no calcifications within it. There is no pericholecystic fluid collection or streakiness The spleen is normal. The pancreas is normal. Both adrenals are normal. The kidneys are normal with no masses, calculi or hydronephrosis The stomach is normal. There is no bowel distention, acute appendicitis or diverticulitis. No constricting lesions are seen in large bowel. The abdominal wall is intact with no hernias. There is no ascites or any free intraperitoneal air. No indication of epiploic appendagitis The aorta is heavily calcified in its vergara. No focal aneurysmal There is no retrocrural, retroperitoneal or mesenteric adenopathy. The bones and joints are normal. The urinary bladder is normal.--Previous hysterectomy. There is no inguinal or pelvic adenopathy. There is no inguinal hernia. . CT/Abdomen/Pelvis without Cont IMPRESSION: No acute findings in the abdomen or pelvis. Specifically there is no acute appendicitis or diverticulitis Electronically Signed: Davis Vallejo MD at 0:09 EDT Tel , Service support ,
[2018-10-20] MEDS: 0.9% Normal Saline 1,000 ML 1000 ML IV (22:43)
[2018-10-20 22:57] LABS: Hematocrit 36.6 % (37-47); Hemoglobin 12.2 g/dl (12.0-15.0); Mean Corp Hgb Conc 33.3 g/gl (32-36); Mean Corpuscular Hgb 30.4 pg (27.0-32.0); Mean Corpuscular Volume 91.3 fL (81-99); Mean Platelet Vol. 8.9 fl (6.2-12.0); Platelet Count 161 K/mm3 (150-450); RBC Distribution Width CV 16.5 % (11.6-14.6); RBC Distribution Width SD 54.4 fl (35.1-43.9); Red Blood Count 4.01 M/mm3 (4.2-5.4); White Blood Count 7.1 K/mm3 (4.4-11.0)
[2018-10-20 22:59] LABS: Differential Indicated MANUAL DIFF; POSITIVE COUNT YES; POSITIVE DIFFERENTIAL NO; POSITIVE MORPHOLOGY YES
[2018-10-20 23:00] VITALS: PULSE 88; RESP 14
[2018-10-20 23:07] LABS: Mucous, Urine 0 SEEN /hpf (<or=2+)
[2018-10-20 23:08] LABS: AST(SGOT) 8 U/L (15-37); Alanine Aminotransfer ALT/SGPT 44 U/L (13-56); Albumin, Serum 2.9 g/dL (3.2-5.0); Alkaline Phosphatase 50 U/L (45-117); Anion Gap 9 (5-15); BUN 18 mg/dL (7-18); BUN/Creat Ratio 24.3 RATIO (10-20); Chloride 109 mmol/L (98-107); Creatinine, Serum 0.74 mg/dL (0.55-1.02); EST Glomerular Filtration Rate 83 mL/min (>60); Est Glom Filt Rate - Afr Amer 100 mL/min (>60); Estimated Creatinine Clearance 40.07 ml/min; Glucose 134 mg/dL (74-106); Lipase 117 U/L (73-393); Potassium 3.2 mmol/L (3.5-5.1); Protein, Total 5.9 g/dL (6.4-8.2); Sodium Level 142 mmol/L (136-145)
[2018-10-20 23:11] LABS: Color, Urine Yellow (Yellow); Glucose, Dipstick Normal (Normal); Ketone-Dipstick Negative (Negative); Leukocyte Esterase-Dipstick 500 /ul (Negative); Nitrite-Dipstick Positive (Negative); Occult Blood-Urine 250 /ul (Negative); Protein-Dipstick 30 mg/dl (Negative); Specific Gravity, Urine 1.015 (1.002-1.030); Urine Bilirubin Dipstick Negative (Negative); Urine Clarity Sl. Cloudy (Clear); Urine Urobilinogen Normal (Normal)
[2018-10-20 23:19] LABS: Amorphous Sediment 1+ URATE; Bacteria 1+ /hpf (None Seen); Red Blood Cells-Urine 5-10 SEEN /hpf (0-5); Squamous Epithelial Cells - UA 0-5 SEEN /hpf (5-10); White Blood Cells 50-100 SEEN /hpf (0-5)
[2018-10-20 23:19] LABS: Eosinophil 2 % (0-5); Lymphocyte 34 % (19-41); Monocyte 9 % (0-10); Neutrophil-Band 2 % (0-5); Neutrophil-Segmented 53 % (47-70); Total Cells Counted 100 (MANUAL DIFF)
[2018-10-20 23:20] LABS: Platelet Estimate ADEQUATE (ADEQ); Red Cell Morphology NORM C+C NORMAL (NORM C&C)
[2018-10-21 00:39] LABS: Absolute Lymphocyte Count 2.41 X10^3/ul (0.83-4.51); Absolute Neutrophil Count 3.9 X10^3/uL (2.0-7.7)
--- NOTE | 2018-10-21 00:41 | ED.DCSUM_ITS ---
- ER Visit Summary Date of Service: 10/21/18 Chief Complaint: Constipation History of Present Illness: The patient is a 68 F who presents with constipation that has been getting worse over the past several days. Patient had abdominal x-rays done which showed some stool in her rectum. Patient states that she has not had a normal bowel movement in the past couple weeks. Patient states that she has had 2 watery bowel movements today. Patient states she has been taking stool softeners but thinks this is just causing some liquid stool to go around her solid stool which she feels is still in her colon. Patient admits to some nausea but denies any vomiting. Patient denies any fevers or chills. Family today noted some redness over the tailbone. Family also noticed a superficial ulceration on the left gluteal area. Patient had recent brain surgery and has been having problems with her stool since. Physical Examination: Vital signs vital signs are stable. Patient is afebrile. Patient is in no acute distress. Oral mucosa is pink and moist. Neck is supple. Trachea is midline. There is no JVD noted. Heart was regular rate and rhythm. Lungs are clear and equal bilateral. Abdomen is soft. Bowel sounds are normal. There is no tenderness. There is no guarding noted. Cranial nerves II through XII are grossly intact. There are no focal motor or sensory deficits noted. Skin is warm dry. There is 1 cm grade 2 ulceration of the left gluteal fold. There is some erythema in the perineum. There is no discharge or drainage. Test Results: CBC was normal. Conference of metabolic profile showed a potassium 3.2 and a chloride of 109. The remainder was within normal limits. Urinalysis showed leukocyte esterase of 500 with positive nitrites and 50-100 white blood cells and 1+ bacteria. CT scan of the abdomen pelvis was ordered. There is no acute abnormality. There is no fecal impaction noted. There is no obstruction noted. Emergency Department Course and Treatment: Patient was given IV fluids. Patient was feeling better after this. Patient attempted to have a bowel movement but was unsuccessful. Patient requested to have an enema done. Patient was given a soapsuds enema. Patient was given her first dose of Bactrim here. Patient was given a prescription for Bactrim. Patient was also given a prescription for Silvadene cream to apply to the decubitus ulcer. Patient was instructed to follow-up with her primary care physician in 5 to 7 days. Patient and her family understood and was agreeable with the plan. All questions were answered. Disposition: Discharge home Impression: 1. Urinary tract infection 2. Constipation This note was generated with Immediately dictation software. It may contain incorrect words, spelling, and punctuation that were not noted in review of the chart prior to signing ED Disposition - Plan for ED Patient: Disposition: Home or Assisted Living Diagnosis: Urinary tract infection, Constipation, Sacral ulcer Instructions: ED Constipation, ED UTI Cystitis Female, ED Ulcer Skin Simple Prescriptions: Silver Sulfadiazine 1% Crm [Silvadene (BKC)] 1 applic TOPICAL BID #1 bottle Smz/Tmp Ds [Bactrim Ds] 1 tab PO BID #6 tab Referrals: Yadira Alston MD [Primary Care Provider] - 3-5 Days
[2018-10-21 01:00] VITALS: BP 124/61; PULSE 88; RESP 16; O2SAT 97
[2018-10-21] MEDS: Smz/Tmp Ds Tablet 1 TABLET PO (02:05)
[2018-10-21 02:13] VITALS: BP 122/65
[2018-10-23 13:03] LABS: Pathologist Review Reviewed
== END 2018-10-21 02:14 | disposition home or self-care (01) ==
PROVIDERS: Emergency Provider Emergency Medicine; Family Provider Family Medicine; PCP Family Medicine
DX: N39.0 Urinary tract infection, site not specified (principal); K59.00 Constipation, unspecified; L89.322 Pressure ulcer of left buttock, stage 2; R11.0 Nausea; Z79.4 Long term (current) use of insulin; Z79.899 Other long term (current) drug therapy
CPT/HCPCS: 74176; 80053; 81001; 83690; 85025; 87077; 87086; 87088; 87186; 96360; 96361; 99285; J7030

== ENCOUNTER 2018-11-22 14:30 | Outpatient (RCR) | payer MEDICARE, OTHER, SELFPAY ==
[2018-09-22 14:31] VITALS: BMI 26.9
--- NOTE | 2018-10-19 17:29 | HP.OTEVAL_ITS ---
Patient's Visit Information CARYN OCASIO is a 68 year old F, referred to Occupational Therapy by Yadira Alston MD, with a diagnosis of GBD. Date of Evaluation: 10/18/18 Occupational Therapist: Carissa Cruz, OTR/Marija, CHT - Subjective Subjective: This 68 year old female was seen for initial OT eval with dx. of GBM. pt states she gets weak. was d/c from [facility] rehab unit 10/04/18. pt was d/c with rec'd use of gait belt with ambulation. Pt and family states, she lives in a one-story home with entry steps. Pt states she uses rail to get up and down the 3 entry steps. pt states she does it very slowly. if out shopping she uses motorized cart. Pt states she has a walk-in shower with grab bar. states she has a shower chair she can use with her shower. pt states PLOF she was alway on the go. pt is right handed, lives with both dtrs. pt states she is trying to do laundry. etc. PMH hypertension, hyperlipidemia, COPD, IHSAN, depression, anxiety, asthma, anemia, HX of lung cancer post thoracotomy in 2014 admitted to inpatient rehab on 09/22/2018 for debility secondary s/p left sided craniotomy for tumor resection. Patient has had a history of headaches, word finding difficulties and blurred vision and a MRI was obtained which revealed enhancing lesion in the left posterior superior lobe with surrounding edema measuring 2.6 x 1.6 cm in size. Patient was referred to Dr. Aaron Lamar at [facility] where he performed a left-sided craniotomy with 5 ALA for tumor resection on September 19, 2018. Postoperative diagnosis per report malignant glioma. A postop CT scan was done on July 22, 20192018 Impression: postoperative changes at the craniotomy and within the margins of the left posterior temporal cortical resection site there were no evidence of focal infarction or hemorrhage or no evidence of residual or recurrent tumor. During Rehab course patient's pathology report; Glioblastoma stage IV, patient had appointment with Oncologist Dr. Maguire on. 10/04/18. Patient speech improving with receptive and expressive will see speech for eval at later date. - ROM ROM Comments: pt demo all UB ROM WNL - Strength Shoulder: R/L 4/5 Elbow: R/L 4/5 Forearm: R/L 4/5 [employer] Flour: Right 35# left 40# Lateral Pinch: right 6# left 10# Tripod Pinch: right 8# left 10# - Sensation Sensation Comments: denies - Quick DASH-Disab of Arm,Shoulder& Hand Quick DASH Score: 50.0000 - Goals Goal:: Pt will demo a increase in MMT by 1 MM grade to increase pts ind. with ADLs and IADLs by D/C. PT will demo an increase in machine group leader strength by 20# to increase independent with basic occupations of daily living to return pt to PLOF by D/C. Pt will demo an increase in lateral and tripod pinch by 2# to increase pts independent with opening baggies, containers at PLOF by D/C. Goal:: pt and family will report pt is MOD I with alll ADLs and IADLS with ad. eq. use for safety by d/c - Rehabilitation General Assessment: This 68 year old female was seen for initial OT eval demo BUE weakness and difficulty with ADLs and IADLS. Pt would benefit from skilled OT services 2x week for 4 weeks to challenge UB strength and endurance to return pt to PLOF. Today therapist reviewed t-band HEP for UB with pt and pts dtrs. both demo understanding and agree to POC. Rehabilitation Potential: Good - Anticipated Interventions Anticipated Interventions: A/AAROM/PROM, Strengthening, Caregiver Training, Home Program Other Interventions: home modification - Visit Plan Frequency: 2x /Week Duration: 4 Weeks TEXT: Thank you for the opportunity to evaluate your patient. For Medicare and Medicare HMO plans, please review the plan of care and approve it. It will need to be FAXED BACK to us at [phone] for Medicare purposes. Please let me know if there are questions or concerns regarding this plan of care. Physician Signature: Date:
--- NOTE | 2018-11-22 14:53 | HP.OTDCSUM ---
HP - OT D/C Summary It has been my pleasure to treat CARYN OCASIO under orders from Yadira Alston MD, for the diagnosis of GBD for a total of 6 visit(s). Please see the following information for a summary of their discharge status. - Overall Improvement % Improvement: 90 - Objective Objective/Function: pt demo with right vice president sales and marketing strength at 40# a increase from 35#, left vice president sales and marketing is at 40# no change from initial eval- right lateral pinch 10# a increase from 6# and right tripod 9# a increase from 8#, left lateral pinch 12# a increase from 10# and left tripod pinch 14# a increase from 10#. pt MMT of UB right 4+/5 left 5/5 shoulder and elbow- pt has demo a increase in her functional stregth- pt and her dtr. are reporting she is performing IADLs, washing dishes, doing laundry, making her bed, packing her home because she is moving. - Goals Patient Goals: Regain Strength, Use Hand/Wrist/Arm Normally Again, Be More Independent in ADLS, Resume Former Household Responsibilities (Cooking,Cleaning,Yard, etc.) Goal:: Pt will demo a increase in MMT by 1 MM grade to increase pts ind. with ADLs and IADLs by D/C. PT will demo an increase in vice president sales and marketing strength by 20# to increase independent with basic occupations of daily living to return pt to PLOF by D/C. Pt will demo an increase in lateral and tripod pinch by 2# to increase pts independent with opening baggies, containers at PLOF by D/C. Goal:: pt and family will report pt is MOD I with alll ADLs and IADLS with ad. eq. use for safety by d/c - Plan Plan: D/C - D/C Information Discharge Comments: pt was seen for 6 OT sessions to increase her functional strength. Pt has made great progress and met OT goals and is D/C with home ex.s.pt and pts dtr agreee with POC. If there are questions or concerns regarding this patient's occupational therapy, please fell free to call me at [phone]. Thank you for the referral of this patient. Sincerely, Carissa Cruz, OTR/L, CHT
== END 2018-11-22 19:00 | disposition home or self-care (01) ==
LOC: OT 14:30
PROVIDERS: Family Provider Family Medicine; PCP Family Medicine; Referring Provider Family Medicine; Visit Provider Family Medicine
DX: C71.9 Malignant neoplasm of brain, unspecified (principal); R47.89 Other speech disturbances
CPT/HCPCS: 92523; 97110; 97162; 97166; 97530

== ENCOUNTER 2018-11-27 21:20 | Inpatient (IN) | payer MEDICARE, OTHER, SELFPAY ==
[2018-11-27 21:21] VITALS: BP 126/66; PULSE 116; RESP 16; TEMP 36.6; O2SAT 94; BMI 27.9
--- NOTE | 2018-11-27 22:45 | CT_ITS ---
STUDY: CT BRAIN WITHOUT CONTRAST REASON FOR EXAM: Female, 68 years old. Recent fall. Patient has been treated for brain tumor. RADIATION DOSAGE (If Supplied By Facility): CTDIvol = ( 44.99 ) mGy, DLP = ( 779.26 ) mGycm TECHNIQUE: Transaxial CT imaging of the brain was performed without administration of intravenous contrast material. Individualized dose optimization techniques were used for this CT. COMPARISON: MRI of the brain dated September 01, 2018 is NOT available for comparison at the time of dictation despite special request for this study. Report from the study is reviewed. FINDINGS: Normal soft tissue structures. Patient has had a left lateral temporal and parietal craniotomy. There is mild cerebral atrophy with widening of the extra-axial spaces and ventricular dilatation. There are areas of decreased attenuation within the white matter tracts of the supratentorial brain, consistent with microvascular disease changes. There is a operative defect within the posterior left temporal lobe consistent with the surgical resection of a mass. There are small lucencies within the basal ganglia that probably represents sequela of old infarcts. There is a focal area of lucency in the right paramedian bill is probably related to old infarct. Normal cerebellum. There is no intracranial hemorrhage. There is minimal atherosclerotic calcification of the intracranial arteries. There are small mucous retention cysts in the right maxillary sinus. CT/Brain/Head without Contrast IMPRESSION: Postoperative changes of the left temporal lobe probably related to surgical resection of a neoplasm. Electronically Signed: Thelma Salazar MD at 1:31 EDT , Service support ,
--- NOTE | 2018-11-27 22:46 | EKG12_ITS ---
Test Reason : DYSRYTHMIA Blood Pressure : / mmHG Vent. Rate : 114 BPM Atrial Rate : 114 BPM P-R Int : 114 ms QRS Dur : 074 ms QT Int : 306 ms P-R-T Axes : 059 -31 099 degrees QTc Int : 421 ms Sinus tachycardia with Premature supraventricular complexes Left axis deviation Nonspecific ST and T wave abnormality Abnormal ECG Confirmed by ROHIT CAROLINA, VANESSA ([id number]), editor managing newspaper JAJA FLORES ([id number]) on 11/29/2018 11:36:21 AM Referred By: Gerardo Gates Confirmed By:VANESSA BEE MD
--- NOTE | 2018-11-27 22:48 | ED.DCSUM_ITS ---
- ER Visit Summary Date of Service: 11/27/18 Chief Complaint: Fall History of Present Illness: The patient is a 68 F who presents after a fall. She fell about 9 hours ago. She states that she had slippery she was on. She fell onto her butt and then rolled onto her back. She was found by family immediately. She does not believe she injured anything in the fall. There was no loss of consciousness, she does remember the fall. She was helped up by family. Since that time she is just complaining of feeling very tired and wanting to sleep. She also complains of feeling cold. Family reports that she seems more confused than baseline. She has a history of glioblastoma. She has had brain surgery at [facility]. She is currently taking a chemo pill every day. She is also getting radiation. She complains of a mild headache. She otherwise denies recent illness such as fevers chest pain shortness of breath abdominal pain nausea vomiting diarrhea. Physical Examination: Heart rate 116 vitals otherwise normal Patient drowsy but easily arousable to voice she is oriented to self able to say that she is at hospital but does not know which one, she knows her birthday but cannot tell me the month. She has normal strength and sensation of the ex tremities no ataxia, clear speech Heart regular tachycardia Lungs clear Abdomen soft Extremities nontender Test Results: EKG shows sinus rhythm at a rate of 114. Chest x-ray is normal. CT of the head shows postoperative changes of the left temporal lobe. Blood and urine cultures were sent. Labs notable for positive nitrites and 3+ bacteria in the urine. Lactic acid is normal. Emergency Department Course and Treatment: My initial concern was for cerebral edema given her history of brain cancer with radiation. CT of the head does not show any acute abnormality. While here she developed a fever of 101.2. At this point we added on cultures and lactic acid. Urinalysis is consistent with infection. She was treated with Cipro, she has a cephalosporin allergy. Also when she fell asleep she desaturated and was still on the oxygenating 85% on 4 L nasal cannula so was put on a Ventimask. She also is more confused than moshe milan. Therefore I do feel she requires hospitalization. She will be discussed with the hospitalist and admitted for further care. Treatment Plan: [] Disposition: Admit Impression: Cystitis Confusion Sepsis syndrome This note was generated with Jose dictation software. It may contain incorrect words, spelling, and punctuation that were not noted in review of the chart prior to signing ED Disposition - Plan for ED Patient: Referrals: Yadira Alston MD [Primary Care Provider] -
--- NOTE | 2018-11-27 23:00 | RAD_ITS ---
STUDY: X-RAY CHEST REASON FOR EXAM: Female, 68 years old. Chest pain status post fall TECHNIQUE: Single frontal view of the chest. COMPARISON: August 17, 2018 FINDINGS: The lungs are clear and expanded. There is no demonstrated pleural abnormality. Normal size heart. Normal mediastinum and thomas. Normal visualized pulmonary arteries. Normal visualized aortic arch and descending thoracic aorta. Normal visualized thoracic spine. Possible old rib fractures on the left. There is no demonstrated abnormality of the visualized soft tissue structures of the upper abdomen. RAD/Chest 1 View (Portable) IMPRESSION: Normal x-ray examination of the chest. Electronically Signed: Russ Tong MD at 23:20 EDT , Service support ,
[2018-11-27 23:43] LABS: Absolute Lymphocyte Count 0.84 X10^3/ul (0.83-4.51); Absolute Neutrophil Count 4.6 X10^3/uL (2.0-7.7); Basophil# 0.01 X10^3/uL; Basophil% 0.2 % (0-1); Eosinophil# 0.05 X10^3/uL; Eosinophils% 0.8 % (0-5); Hematocrit 34.8 % (37-47); Hemoglobin 11.4 g/dl (12.0-15.0); Lymphocyte # 0.84 X10^3/ul (4.0); Lymphocyte % 13.8 % (19-41); Mean Corp Hgb Conc 32.8 g/gl (32-36); Mean Corpuscular Hgb 31.5 pg (27.0-32.0); Mean Corpuscular Volume 96.1 fL (81-99); Mean Platelet Vol. 8.7 fl (6.2-12.0); Monocyte# 0.58 X10^3/uL; Monocyte% 9.5 % (0-10); Neutrophil # 4.56 X10^3/uL (2.7-7.7); Neutrophil % 74.9 % (47-70); Platelet Count 132 K/mm3 (150-450); RBC Distribution Width CV 17.3 % (11.6-14.6); RBC Distribution Width SD 61.3 fl (35.1-43.9); Red Blood Count 3.62 M/mm3 (4.2-5.4); White Blood Count 6.1 K/mm3 (4.4-11.0)
[2018-11-27 23:44] VITALS: BP 145/74; PULSE 118; RESP 21; O2SAT 87
[2018-11-27 23:44] LABS: POSITIVE COUNT NO; POSITIVE DIFFERENTIAL NO; POSITIVE MORPHOLOGY NO
[2018-11-28] VITALS (20 sets, daily range): BP systolic 110–145; BP diastolic 56–107; PULSE 83–112; RESP 16–22; TEMP 36.3–38.7; O2SAT 94–99; BMI 28.7
[2018-11-28 00:01] LABS: ALB/GLOB Ratio 0.9 RATIO (0.9-2.4); AST(SGOT) 13 U/L (15-37); Alanine Aminotransfer ALT/SGPT 34 U/L (13-56); Albumin, Serum 2.9 g/dL (3.2-5.0); Alkaline Phosphatase 53 U/L (45-117); Anion Gap 7 (5-15); BUN 16 mg/dL (7-18); BUN/Creat Ratio 16.2 RATIO (10-20); Calcium,Total 8.3 mg/dL (8.5-10.1); Chloride 105 mmol/L (98-107); Creatinine, Serum 0.98 mg/dL (0.55-1.02); EST Glomerular Filtration Rate 59 mL/min (>60); Est Glom Filt Rate - Afr Amer 72 mL/min (>60); Estimated Creatinine Clearance 40.88 ml/min; Globulin 3.3 g/dL (2.2-4.2); Glucose 108 mg/dL (74-106); Potassium 3.5 mmol/L (3.5-5.1); Protein, Total 6.2 g/dL (6.4-8.2); Sodium Level 139 mmol/L (136-145)
[2018-11-28 00:30] LABS: Mucous, Urine 0 SEEN /hpf (<or=2+); Red Blood Cells-Urine 0 SEEN /hpf (0-5); Squamous Epithelial Cells - UA 0 SEEN /hpf (5-10)
[2018-11-28 00:38] LABS: Color, Urine Yellow (Yellow); Glucose, Dipstick Normal (Normal); Ketone-Dipstick Negative (Negative); Leukocyte Esterase-Dipstick 25 /ul (Negative); Nitrite-Dipstick Positive (Negative); Occult Blood-Urine Negative /ul (Negative); Protein-Dipstick Negative (Negative); Urine Bilirubin Dipstick Negative (Negative); Urine Clarity Clear (Clear); Urine Urobilinogen Normal (Normal)
[2018-11-28 00:45] LABS: Bacteria 3+ /hpf (None Seen); White Blood Cells 0-5 SEEN /hpf (0-5)
[2018-11-28 01:58] LABS: Lactic Acid 1.4 mmol/L (0.4-2.0)
--- NOTE | 2018-11-28 02:14 | PCM.HP.STD ---
Problem List (1) Sepsis Status: Acute History of Present Illness Date of Admission: 11/28/18 Chief Complaint: fall The patient is a 68 year old F with a significant history of obstructive sleep apnea; fibromyalgia; non-small cell lung cancer status post partial lobectomy; brain tumor; and hypothyroidism who presented to the emergency department because of a fall. Associated with her symptoms is lethargy and chills. At the emergency department patient was found to have tachycardia and tachypnea. Because of low oxygenation she was put on Venturi mask. Because her urinalysis is abnormal so she was started on ciprofloxacin at the ED. However patient denies any urinary symptoms. Per family, patient has been confused after a craniotomy but her confusion increased on the day of presentation. Past Medical History Past Medical History (Chronic Problems): Chronic Problems (Last Reviewed 11/28/18 @ 03:20 by Gerardo Gates MD) Acquired hypothyroidism (Chronic) Benign essential HTN (Chronic) Hypertriglyceridemia (Chronic) Odynophagia (Chronic) Non-small cell lung cancer (NSCLC) (Chronic) Thoracic back pain (Chronic) IBS (irritable bowel syndrome) (Chronic) Segmental and somatic dysfunction of thoracic region (Chronic) Segmental and somatic dysfunction of lumbar region (Chronic) Thoracic neuritis (Chronic) Fibromyalgia (Chronic) Breast density (Chronic) COPD exacerbation (Chronic) Medical History: Medical History (Last Reviewed 11/28/18 @ 03:20 by Gerardo Gates MD) IBS (irritable bowel syndrome) (Chronic) K58.9 Fibromyalgia (Chronic) M79.[address] of the chest (Acute) R93.89 Brain tumor D49.6 GERD (gastroesophageal reflux disease) E78.5 Hypothyroidism I10 Anemia D64.9 Asthma J45.909 IHSAN (obstructive sleep apnea) G47.33 Allergies doxycycline Allergy (Verified 11/27/18 21:23) Itching cephalexin Adverse Reaction (Verified 11/27/18 21:23) Other escitalopram [From Lexapro] Adverse Reaction (Verified 11/27/18 21:23) Nausea shaky, sweating, tired metoclopramide [From Reglan] Adverse Reaction (Verified 11/27/18 21:23) Other morphine Adverse Reaction (Verified 11/27/18 21:23) Low blood pressure pregabalin Adverse Reaction (Verified 11/27/18 21:23) Other Home Medications: Ambulatory Orders Medication Instructions Recorded Felodipine [Plendil] 10 mg PO DAILY 02/13/15 Acetaminophen [Tylenol Tablet] 650 mg PO Q6H PRN PRN tablet 10/04/18 Amlodipine [Norvasc] 10 mg PO DAILY #30 tablet 10/04/18 Insulin Glargine [Lantus SoloStar 15 units SC QHS #1 pen 10/04/18 Pen] Levothyroxine [Synthroid] 50 mcg PO DAILY@0600 tablet 10/04/18 Pantoprazole Sodium [Protonix] 40 mg PO DAILY #30 tablet 10/04/18 Peg 400/Hypromellose/Glycerin 1 drop EACH EYE Q1H PRN bottle 10/04/18 [Artificial Tears] levETIRAcetam tablet [Keppra 500 mg PO BID #60 tablet 10/04/18 tablet] Silver Sulfadiazine 1% Crm 1 applic TOPICAL BID #1 bottle 10/21/18 [Silvadene (BKC)] Dexamethasone [Decadron] 2 mg PO DAILY 11/27/18 Surgical History: Surgical History (Last Reviewed 11/28/18 @ 03:20 by Gerardo Gates MD) Status post craniotomy (Acute) Z98.890 H/O cataract extraction Z98.49 bilateral S/P appendectomy Z90.49 S/P bilateral foot surgery Z98.890 S/P breast biopsy, bilateral Z98.890 with clip in left breast S/P cholecystectomy Z90.49 S/P partial lobectomy of lung Z90.2 left due to lung cancer S/P removal of ovarian cyst Z98.890, Z87.42 Surgical History: appendectomy, cholecystectomy, hysterectomy Psychiatric History: Anxiety, Depression [employer]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 Denies: Weight Change HEENT: Denies: Head Aches, Sinus Congestion, Sinus Drainage Cardiovascular: Denies: Chest Pain, Palpitations Respiratory: Denies: Cough, Sputum production Gastrointestinal: Denies: Abdominal Pain, Nausea, Vomiting Genitourinary: Denies: Dysuria Musculoskeletal: Denies: Joint Pain, Joint Tenderness Skin: Denies: Rash, Wounds Neurological: Reports: Confusion. Denies: Focal weakness, Numbness, Tingling Psychiatric: Denies: Anxiety, Depression, Homicidal Ideations, Suicidal Ideations Hematologic/ Lymphatic: Denies: Easy Bruising, Easy Bleeding VTE Information - Inpt Only VTE Present on Admission: No VTE Mechan Device Prophylaxis: None VTE Pharm Prophylaxis ordered?: Yes Patient Problems: Active and Suspected Problems (Last Reviewed 11/28/18 @ 03:20 by Gerardo Gates MD) Sepsis (Acute) - Physical Exam General: Alert, - - Patient did not know the state. She thought that she was at [place] instead of [place]. HEENT: - - Healed surgical incision on head. Neck: Supple, No JVD, Negative Carotid Bruits Lungs: Clear to auscultation, Normal air movement, Tachypneic Cardiovascular: No murmurs, Tachycardic Abdomen: Bowel Sounds Present, Soft, Non Tender Extremities: No edema, Capillary Refill Less than 3 Seconds Skin: Excoriated - and redness at coccyx, - Musculoskeletal: No Tenderness to Palpation of Joints or Extremities Neurological: Cranial nerves II-XII grossly intact Psych/Mental Status: Normal Affect, Appropriate Vital Signs Temp Pulse Resp BP Pulse Ox 101.2 F H 109 H 22 H 145/76 H 98 11/28/18 01:00 11/28/18 01:00 11/28/18 01:00 11/28/18 01:00 11/28/18 02:03 Oxygen Delivery Method Venturi Mask Weight: 67.132 kg Body Mass Index (BMI) 27.9 Laboratory Tests Past 24 Hrs 11/27/18 11/27/18 11/28/18 23:37 23:37 00:25 WBC 6.1 RBC 3.62 L Hgb 11.4 L Hct 34.8 L MCV 96.1 MCH 31.5 MCHC 32.8 RDW 17.3 H RDW Differential 61.3 H Plt Count 132 L MPV 8.7 Immature Gran % (Auto) 0.800 Neut % (Auto) 74.9 H Lymph % (Auto) 13.8 L [place] % (Auto) 9.5 Eos % (Auto) 0.8 Baso % (Auto) 0.2 Absolute Neuts (auto) 4.6 Absolute Lymphs (auto) 0.84 Sodium 139 Potassium 3.5 Chloride 105 Carbon Dioxide 27.0 Anion Gap 7 BUN 16 Creatinine 0.98 Estim Creat Clear Calc 40.88 Est GFR (MDRD) Af Amer 72 Est GFR (MDRD) Non-Af 59 L BUN/Creatinine Ratio 16.2 Glucose 108 H Lactic Acid Calcium 8.3 L Total Bilirubin 0.50 AST 13 L ALT 34 Alkaline Phosphatase 53 Total Protein 6.2 L Albumin 2.9 L Globulin 3.3 Albumin/Globulin Ratio 0.9 Urine Color Yellow Urine Clarity Clear Urine pH 7.0 Ur Specific [place] 1.010 Urine Protein Negative Urine Glucose (UA) Normal Urine Ketones Negative Urine Occult Blood Negative Urine Nitrite Positive H Urine Bilirubin Negative Urine Urobilinogen Normal Ur Leukocyte Esterase 25 H Urine RBC 0 SEEN Urine WBC 0-5 SEEN Ur Squamous Epith Cells 0 SEEN Urine Bacteria 3+ Urine Mucus 0 SEEN 11/28/18 01:19 WBC RBC Hgb Hct MCV MCH MCHC RDW RDW Differential Plt Count MPV Immature Gran % (Auto) Neut % (Auto) Lymph % (Auto) [place] % (Auto) Eos % (Auto) Baso % (Auto) Absolute Neuts (auto) Absolute Lymphs (auto) Sodium Potassium Chloride Carbon Dioxide Anion Gap BUN Creatinine Estim Creat Clear Calc Est GFR (MDRD) Af Amer Est GFR (MDRD) Non-Af BUN/Creatinine Ratio Glucose Lactic Acid 1.4 Calcium Total Bilirubin AST ALT Alkaline Phosphatase Total Protein Albumin Globulin Albumin/Globulin Ratio Urine Color Urine Clarity Urine pH Ur Specific [place] Urine Protein Urine Glucose (UA) Urine Ketones Urine Occult Blood Urine Nitrite Urine Bilirubin Urine Urobilinogen Ur Leukocyte Esterase Urine RBC Urine WBC Ur Squamous Epith Cells Urine Bacteria Urine Mucus Assessment/Plan All Active Problems (Last Reviewed 11/28/18 @ 03:20 by Gerardo Gates MD) Lower gastrointestinal bleeding (Acute) Left sided colitis (Acute) Abnormal CT of the chest (Acute) Status post craniotomy (Acute) Sepsis (Acute) The patient is a 68 year old F with a significant history of obstructive sleep apnea; fibromyalgia; brain tumor; non-small cell lung cancer status post partial lobectomy; and hypothyroidism who presented to the emergency department because of a fall; and also with lethargy; chills and altered mental status and found to have tachycardia; tachypnea; fever and abnormal urinalysis consistent with sepsis secondary to probable urinary tract infection. Sepsis Patient meets sirs criteria with tachycardia with heart rate of 109 to 118; tachypnea with highest respiratory rate of 22. Suspect infection is probably from her urine. Blood culture x2 was ordered at the emergency department. Urine culture was ordered emergency department. Lactic acid is unremarkable. Patient has allergy to cephalosporins so she was empirically started on ciprofloxacin. We will continue patient on ciprofloxacin. Follow urine and blood cultures. Other differential diagnoses include acute encephalopathy secondary to brain tumor. Acute encephalopathy May be due to sepsis or brain tumor. Treatment as above. If patient is not improving consider MRI of the brain. CT head did not show acute pathology. Brain tumor status post craniotomy ? Glioblastoma Reportedly patient has last radiation scheduled for this week of presentation. On a chemo pill which she takes daily Acute hypoxemic respiratory failure Patient requiring to maintain appropriate saturation. Because of tachycardia would hold of albuterol at this time. Ipratropium ordered. Continue Venturi mask. Transition to nasal oxygen as necessary. Of note patient has a history of non-small cell lung cancer. Her acute hypoxemic failure could also be due to sepsis. If patient is not improving while on therapy consider CT scan of the chest. Chest x-ray was unremarkable. Fall This could be secondary to her acute encephalopathy and sepsis. PT and OT to work the patient for strengthening and balance training. Stage II pressure ulcer Calmoseptine ordered DVT prophylaxis Subcutaneous Lovenox ordered Code Visit Inpatient E&M: 97736 Init Hosp L3
[2018-11-28] MEDS: Ciprofloxacin 400 MG/200 ML BAG 200 MG IV ×3 (03:13→22:01)
[2018-11-28 06:21] LABS: Absolute Lymphocyte Count 0.66 X10^3/ul (0.83-4.51); Basophil# 0.02 X10^3/uL; Basophil% 0.4 % (0-1); Eosinophil# 0.04 X10^3/uL; Eosinophils% 0.8 % (0-5); Hematocrit 34.1 % (37-47); Hemoglobin 11.2 g/dl (12.0-15.0); Lymphocyte # 0.66 X10^3/ul (4.0); Lymphocyte % 12.7 % (19-41); Mean Corp Hgb Conc 32.8 g/gl (32-36); Mean Corpuscular Hgb 31.7 pg (27.0-32.0); Mean Corpuscular Volume 96.6 fL (81-99); Mean Platelet Vol. 8.8 fl (6.2-12.0); Monocyte# 0.48 X10^3/uL; Monocyte% 9.2 % (0-10); Neutrophil # 3.95 X10^3/uL (2.7-7.7); Neutrophil % 76.1 % (47-70); POSITIVE COUNT NO; POSITIVE DIFFERENTIAL NO; POSITIVE MORPHOLOGY NO; Platelet Count 125 K/mm3 (150-450); RBC Distribution Width CV 17.5 % (11.6-14.6); RBC Distribution Width SD 62.1 fl (35.1-43.9); Red Blood Count 3.53 M/mm3 (4.2-5.4); White Blood Count 5.2 K/mm3 (4.4-11.0)
[2018-11-28] MEDS: Levothyroxine 50 MCG Tablet PO (06:25)
[2018-11-28 06:36] LABS: Bedside Glucose 82 mg/dL (70-110)
[2018-11-28] MEDS: Ipratropium 0.5 MG/2.5 ML SOLUTION INHALATION ×3 (06:45→19:14)
[2018-11-28] MEDS: Acetaminophen 325 MG Tablet 650 MG PO (08:55)
[2018-11-28] MEDS: dexAMETHasone 4 MG Tablet 2 MG PO (08:56)
[2018-11-28] MEDS: Pantoprazole Sodium 40 MG Tablet PO (08:56)
[2018-11-28] MEDS: amLODIPine 10 MG Tablet PO (08:56)
[2018-11-28] MEDS: levETIRAcetam 500 MG Tablet PO ×2 (08:56→22:01)
--- NOTE | 2018-11-28 10:22 | CASEMGMT ---
RN CM Assessment Presentation: Sepsis, Resp failure. tachycardia. BC x2 Hx of brain tumor, s/p craniotomy Intro role of CM and purpose of RN CM assessment to daughter Preeti. Pt is sleeping in chair, did not participate in assessment. Daughter Preeti states she and her stay with pt 06/12 and pt is not left alone; was able to provide assessment information. Demographics, PCP and Pharmacy verified. Per daughter she and her have been caring for her mother since discharge from [facility] Rehab unit in September 2018. Daughter requested referral for Palliative Care. RN CM discussed process that SW could make referral and Palliative Care liason would call her to discuss setting up appt. Daughter is agreeable. PCP: Dr. Alston Preferred Pharmacy: [facility] Insurance: [facility] Prescription Benefit: yes LNOK: Daughter Onesimo Álvarez Living Arrangements: Lives in one story home with her daughter. Daughter assists with care needs. Transportation: Family provides transportation DME: Walker, Wheelchair, cane, grab bars, shower chair HHC: none SW Referral: Palliative Care referral Patient DC goals: Home DC PLAN: Anticipate Home with family support. Palliative Care referral and if needed, possible HHC referral. Stephen BARILLASN RN ACM
[2018-11-28] MEDS: 0.9% Normal Saline 1,000 ML 100 ML IV (14:00)
[2018-11-28] MEDS: 0.9% NaCl Peripheral Flush Adult/Peds IV (14:01)
--- NOTE | 2018-11-28 14:49 | CASEMGMT ---
Addendum entered by Bea Chakraborty 11/29/18 13:44: Spoke with Caitie at [facility] - will visit with pt and family today at 2:30 pm for services. Original Note: Social Work Met with pt and daughter Angelina, in room. Discussed pt's current medical condition, her baseline, symptoms and frequent hospital visits. Explained Palliative care and their role to assist with symptom management in any setting. Pt stated her had [facility] at his end of life, and received great care - she is agreeable to Palliative Care referral at this time. Pt requested this SW to contact daughter AMANDA, Preeti, and for [facility] to schedule appointment with her. Left message with Preeti. Referral made to [facility]. Palliative Care Screening Tool completed and faxed with medical information. TRACEY FarleyW
[2018-11-28 17:01] LABS: Bedside Glucose 331 mg/dL (70-110)
[2018-11-28 22:25] LABS: Bedside Glucose 153 mg/dL (70-110)
[2018-11-29] VITALS (10 sets, daily range): BP systolic 118–140; BP diastolic 53–66; PULSE 81–99; RESP 15–22; TEMP 36.3–36.7; O2SAT 95–97
[2018-11-29] MEDS: Ipratropium 0.5 MG/2.5 ML SOLUTION INHALATION ×4 (01:17→19:01)
[2018-11-29] MEDS: 0.9% Normal Saline 1,000 ML 100 ML IV ×4 (02:37→20:54)
[2018-11-29 04:26] LABS: Absolute Lymphocyte Count 0.39 X10^3/uL (0.83-4.51); Absolute Neutrophil Count 3.8 X10^3/uL (2.0-7.7); Basophil# 0.01 X10^3/uL; Basophil% 0.2 % (0-1); Eosinophil# 0.01 X10^3/uL; Eosinophils% 0.2 % (0-5); Hematocrit 32.7 % (37-47); Hemoglobin 10.4 g/dL (12.0-15.0); Lymphocyte # 0.39 X10^3/ul (4.0); Lymphocyte % 8.6 % (19-41); Mean Corp Hgb Conc 31.8 g/dL (32-36); Mean Corpuscular Hgb 31.4 pg (27.0-32.0); Mean Corpuscular Volume 98.8 fL (81-99); Monocyte# 0.26 X10^3/uL; Monocyte% 5.7 % (0-10); NRBC Flagged by Analyzer 0 % (0-5); Neutrophil # 3.81 X10^3/uL (2.7-7.7); Neutrophil % 84.2 % (47-70); POSITIVE DIFFERENTIAL YES; Platelet Count 130 K/mm3 (150-450); RBC Distribution Width CV 16.6 % (11.6-14.6); RBC Distribution Width SD 60.4 fl (35.1-43.9); Red Blood Count 3.31 M/mm3 (4.2-5.4); White Blood Count 4.5 K/mm3 (4.4-11.0)
[2018-11-29 04:40] LABS: Differential Indicated SCAN CRITERIA MET
[2018-11-29 04:48] LABS: Anion Gap 7 (5-15); BUN 12 mg/dL (7-18); Calcium,Total 8.5 mg/dL (8.5-10.1); Chloride 108 mmol/L (98-107); Creatinine, Serum 0.63 mg/dL (0.55-1.02); EST Glomerular Filtration Rate 99 mL/min (>60); Est Glom Filt Rate - Afr Amer 120 mL/min (>60); Estimated Creatinine Clearance 40.07 ml/min; Glucose 176 mg/dL (74-106); Potassium 3.9 mmol/L (3.5-5.1); Sodium Level 142 mmol/L (136-145)
[2018-11-29] MEDS: Levothyroxine 50 MCG Tablet PO (05:13)
[2018-11-29 05:22] LABS: Differential Comment SCANNED
[2018-11-29 08:46] LABS: Bedside Glucose 121 mg/dL (70-110)
[2018-11-29] MEDS: dexAMETHasone 4 MG Tablet 2 MG PO (09:08)
[2018-11-29] MEDS: levETIRAcetam 500 MG Tablet PO ×2 (09:08→20:53)
[2018-11-29] MEDS: Pantoprazole Sodium 40 MG Tablet PO (09:08)
[2018-11-29] MEDS: Ciprofloxacin 400 MG/200 ML BAG 200 MG IV ×2 (09:08→20:59)
[2018-11-29] MEDS: amLODIPine 10 MG Tablet PO (09:08)
--- NOTE | 2018-11-29 09:17 | PN_ITS ---
Patient Problems: Active and Suspected Problems (Last Reviewed 11/28/18 @ 03:20 by Gerardo Gates MD) Sepsis (Acute) Subjective: She seems better today, less tired. She is feeling better than when she came in. Vitals/I&O's: Vital Signs Temp Pulse Resp BP Pulse Ox 97.9 F 81 22 H 135/64 H 97 11/29/18 03:46 11/29/18 06:30 11/29/18 06:30 11/29/18 03:46 11/29/18 06:30 Oxygen Flow Rate (L/min) 2 Oxygen Delivery Method Nasal Cannula Weight: 151 lb 14.376 oz Body Mass Index (BMI) 28.7 Intake and Output for Last 24 Hours 11/27/18 11/28/18 11/29/18 23:59 23:59 23:59 Intake Total 1609 / 1609 902 / 902 Output Total 1450 / 1450 750 / 750 Balance 159 / 159 152 / 152 General: Alert, Oriented x3, Cooperative, No apparent distress, - - Tired HEENT: Atraumatic, PERRLA, EOMI, Normocephalic Oral: Moist Mucosa Neck: Supple, No JVD Lungs: Clear to auscultation, Normal air movement, No rhonchi, No wheeze, No rales Cardiovascular: Regular rate, Regular Rhythm, Normal S1, Normal S2, No murmurs Abdomen: Soft, Non Tender, Non-Distended, No Hepato-splenomegaly Extremities: No edema, Capillary Refill Less than 3 Seconds Skin: No rashes, No breakdown Neurological: Neuro grossly intact, Sensory exam intact to light touch and pain Psych/Mental Status: Normal Affect, Appropriate Laboratory Results 11/28/18 16:50: POC Glucose 331 H 11/28/18 22:05: POC Glucose 153 H 11/29/18 03:40: WBC 4.5, RBC 3.31 L, Hgb 10.4 L, Hct 32.7 L, MCV 98.8, MCH 31.4, MCHC 31.8 L, RDW Std Deviation 60.4 H, RDW Coeff of Emily 16.6 H, Plt Count 130 L, MPV 9.0, Immature Gran % (Auto) 1.100 H, Neut % (Auto) 84.2 H, Lymph % (Auto) 8.6 L, Riley % (Auto) 5.7, Eos % (Auto) 0.2, Baso % (Auto) 0.2, Absolute Neuts (auto) 3.8, Absolute Lymphs (auto) 0.39 L, Absolute Nucleated RBC 0.00, Nucleated RBC % 0, Differential Comment SCANNED 11/29/18 03:40: Sodium 142, Potassium 3.9, Chloride 108 H, Carbon Dioxide 27.0, Anion Gap 7, BUN 12, Creatinine 0.63, Estim Creat Clear Calc 40.07, Est GFR (MDRD) Af Amer 120, Est GFR (MDRD) Non-Af 99, BUN/Creatinine Ratio 19.0, Glucose 176 H, Calcium 8.5 11/29/18 08:44: POC Glucose 121 H Current Medications Acetaminophen (Tylenol) 650 mg PO Q6H PRN PRN PRN Reason: Mild Pain (1-3)/Temp > 100.7 F Last Admin: 11/28/18 08:55 Dose: 650 mg Documented by: Albuterol Sulfate (Ventolin Aerosols) 2.5 mg INHALATION Q2H PRN PRN PRN Reason: Shortness of Breath/Wheezing Amlodipine Besylate (Norvasc) 10 mg PO DAILY [facility] Last Admin: 11/29/18 09:08 Dose: 10 mg Documented by: Artificial Tears (Tears Naturale, Artificial Tears) 1 drop EACH EYE Q1H PRN PRN PRN Reason: DRY EYES Last Admin: 11/28/18 08:56 Dose: 1 drop Documented by: Calamine/Phenol (Calmoseptine Ointment) 1 applic TOPICAL BID [facility]; Protocol Last Admin: 11/28/18 21:58 Dose: Not Given Documented by: Dexamethasone (Decadron) 2 mg PO DAILYCM [facility] Last Admin: 11/29/18 09:08 Dose: 2 mg Documented by: Dextrose (D50w Syringe) 0 gm IV X1 PRN; Protocol PRN Reason: Hypoglycemia Glucagon () 1 mg IM .X1 PRN PRN Reason: Hypoglycemia Sodium Chloride () 250 mls @ 15 mls/hr IV .[id number] PRN PRN Reason: SALINE FLUSH Ciprofloxacin (Cipro) 400 mg in 200 mls @ 200 mls/hr IV Q12 [facility] Last Admin: 11/29/18 09:08 Dose: 200 mls/hr Documented by: Sodium Chloride () 1,000 mls @ 100 mls/hr IV .Q10H [facility] Last Admin: 11/29/18 02:37 Dose: 100 mls/hr Documented by: Ipratropium Dale (Atrovent) 0.5 mg INHALATION Q6H.RT [facility] Last Admin: 11/29/18 06:29 Dose: 0.5 mg Documented by: Levetiracetam (Keppra Tablet) 500 mg PO BID [facility] Last Admin: 11/29/18 09:08 Dose: 500 mg Documented by: Levothyroxine Sodium (Synthroid) 50 mcg PO DAILY@0600 [facility] Last Admin: 11/29/18 05:13 Dose: 50 mcg Documented by: Non-Formulary Medication (Tomozolomide) 120 mg PO DAILY [facility] Ondansetron HCl (Zofran) 4 mg IV Q8H PRN PRN PRN Reason: NAUSEA/VOMITING Pantoprazole Sodium (Protonix) 40 mg PO DAILY [facility] Last Admin: 11/29/18 09:08 Dose: 40 mg Documented by: Sodium Chloride () 10 - 40 ml IV UD PRN PRN Reason: SALINE FLUSH Last Admin: 11/28/18 14:01 Dose: 10 ml Documented by: Medical Necessity - Tobacco Use Smoking Status: Never smoker Assessment/Plan All Active Problems (Last Reviewed 11/28/18 @ 03:20 by Gerardo Gates MD) Lower gastrointestinal bleeding (Acute) Left sided colitis (Acute) Abnormal CT of the chest (Acute) Status post craniotomy (Acute) Sepsis (Acute) 1. Sepsis secondary to urinary tract infection/metabolic encephalopathy -She is allergic to Keflex and will continue with IV Cipro -Blood cultures and urine cultures are pending -She does seem to be improving though given her chemotherapy cannot use leukocytosis as a tool -She remains afebrile -Her confusion is resolved, she does have some baseline confusion because of her brain tumor and craniotomy 2. Acute hypoxic respiratory failure -On admission she required Ventimask though now she is only on 1 L nasal cannula -Her improvement is likely secondary to the treatment of her sepsis -Chest x-ray was unremarkable 3. Brain tumor status post craniotomy -Follows with [facility] oncology -She is undergoing both radiation and chemotherapy -Her chemotherapy is completed on the which we will continue while she is here since she is on antibiotics -Her last radiation dose was supposed to be this Tuesday however she has missed the last 2 -Continue with her dexamethasone as well, and her Keppra 4. GERD -Stable -Continue with PPI 5. Hypothyroidism -Stable -Continue with Synthroid DVT: Lovenox Code Visit Inpatient E&M: 39153 Subs Hosp L2
--- NOTE | 2018-11-29 10:12 | CASEMGMT ---
Addendum entered by Jason Ruiz 11/29/18 15:41: Call received from [facility] that they can accept pt for Home Health on dc. Original Note: RN CM Note: Spoke with daughter and reviewed PT/OT evaluations. Would like Home Health RN PT OT on discharge. Choices given, [facility] preferred. Call, message left with [facility] to see pt on dc. Anticipated dc date 12/01/18. Order placed. Daughter said pt would also do speech therapy in the future per her community physician, but this would be after future chemo/radiation. Stephen BSN RN ACM
[2018-11-29 12:16] LABS: Bedside Glucose 209 mg/dL (70-110)
[2018-11-29] MEDS: Pentamidine Isethionate 300 MG, Water For Injection,Sterile 6 ML INHALATION (16:12)
[2018-11-29 17:26] LABS: Bedside Glucose 235 mg/dL (70-110)
--- NOTE | 2018-11-29 17:26 | CON.PCM_ITS ---
Problem List (1) Glioblastoma multiforme Status: Acute (2) Sepsis Status: Acute Qualifiers: Sepsis type: sepsis due to unspecified organism Qualified Code(s): A41.9 - Sepsis, unspecified organism - Consult Date of Consult: 11/29/18 Consultation requested for follow-up of patient with glioblastoma receiving concurrent chemoradiation therapy who presented with urosepsis. My final recommendation will be communicated to the ICU team and also by electronic medical records - Reason for Consult Problem List (1) Sepsis Status: Acute History of Present Illness Date of Admission: 11/28/18 68-year-old female significant for COPD asthma IBS, hypertension who was admitted to [facility] with change in mental status and urosepsis. 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 Has been receiving concurrent chemotherapy with Temodar & brain radiation therapy. She presented yesterday to the emergency department because of a fall. Associated with her symptoms is lethargy and chills. At the emergency department patient was found to have tachycardia and tachypnea. Because of low oxygenation she was put on Venturi mask. Because her urinalysis is abnormal so she was started on ciprofloxacin at the ED. However patient denies any urinary symptoms. Per family, patient has been confused after a craniotomy but her confusion increased last couple days. Past Medical History Past Medical History (Chronic Problems): Chronic Problems (Last Reviewed 11/28/18 @ 03:20 by Gerardo Gates MD) Acquired hypothyroidism (Chronic) Benign essential HTN (Chronic) Hypertriglyceridemia (Chronic) Odynophagia (Chronic) Non-small cell lung cancer (NSCLC) (Chronic) Thoracic back pain (Chronic) IBS (irritable bowel syndrome) (Chronic) Segmental and somatic dysfunction of thoracic region (Chronic) Segmental and somatic dysfunction of lumbar region (Chronic) Thoracic neuritis (Chronic) Fibromyalgia (Chronic) Breast density (Chronic) COPD exacerbation (Chronic) Medical History: Medical History (Last Reviewed 11/28/18 @ 03:20 by Gerardo Gates MD) IBS (irritable bowel syndrome) (Chronic) K58.9 Fibromyalgia (Chronic) M79.[address] of the chest (Acute) R93.89 Brain tumor D49.6 GERD (gastroesophageal reflux disease) E78.5 Hypothyroidism I10 Anemia D64.9 Asthma J45.909 IHSAN (obstructive sleep apnea) G47.33 Allergies doxycycline Allergy (Verified 11/27/18 21:23) Itching cephalexin Adverse Reaction (Verified 11/27/18 21:23) Other escitalopram [From Lexapro] Adverse Reaction (Verified 11/27/18 21:23) Nausea shaky, sweating, tired metoclopramide [From Reglan] Adverse Reaction (Verified 11/27/18 21:23) Other morphine Adverse Reaction (Verified 11/27/18 21:23) Low blood pressure pregabalin Adverse Reaction (Verified 11/27/18 21:23) Other Home Medications: Ambulatory Orders Medication Instructions Recorded Felodipine [Plendil] 10 mg PO DAILY 02/13/15 Acetaminophen [Tylenol Tablet] 650 mg PO Q6H PRN PRN tablet 10/04/18 Amlodipine [Norvasc] 10 mg PO DAILY #30 tablet 10/04/18 Insulin Glargine [Lantus SoloStar 15 units SC QHS #1 pen 10/04/18 Pen] Levothyroxine [Synthroid] 50 mcg PO DAILY@0600 tablet 10/04/18 Pantoprazole Sodium [Protonix] 40 mg PO DAILY #30 tablet 10/04/18 Peg 400/Hypromellose/Glycerin 1 drop EACH EYE Q1H PRN bottle 10/04/18 [Artificial Tears] levETIRAcetam tablet [Keppra 500 mg PO BID #60 tablet 10/04/18 tablet] Silver Sulfadiazine 1% Crm 1 applic TOPICAL BID #1 bottle 10/21/18 [Silvadene (BKC)] Dexamethasone [Decadron] 2 mg PO DAILY 11/27/18 Surgical History: Surgical History (Last Reviewed 11/28/18 @ 03:20 by Gerardo Gates MD) Status post craniotomy (Acute) Z98.890 H/O cataract extraction Z98.49 bilateral S/P appendectomy Z90.49 S/P bilateral foot surgery Z98.890 S/P breast biopsy, bilateral Z98.890 with clip in left breast S/P cholecystectomy Z90.49 S/P partial lobectomy of lung Z90.2 left due to lung cancer S/P removal of ovarian cyst Z98.890, Z87.42 Surgical History: appendectomy, cholecystectomy, hysterectomy Psychiatric History: Anxiety, Depression 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 Denies: Weight Change HEENT: Denies: Head Aches, Sinus Congestion, Sinus Drainage Cardiovascular: Denies: Chest Pain, Palpitations Respiratory: Denies: Cough, Sputum production Gastrointestinal: Denies: Abdominal Pain, Nausea, Vomiting Genitourinary: Denies: Dysuria Musculoskeletal: Denies: Joint Pain, Joint Tenderness Skin: Denies: Rash, Wounds Neurological: Reports: Confusion. Denies: Focal weakness, Numbness, Tingling Psychiatric: Denies: Anxiety, Depression, Homicidal Ideations, Suicidal Ideations Hematologic/ Lymphatic: Denies: Easy Bruising, Easy Bleeding VTE Information - Inpt Only VTE Present on Admission: No VTE Mechan Device Prophylaxis: None VTE Pharm Prophylaxis ordered?: Yes Patient Problems: Active and Suspected Problems (Last Reviewed 11/28/18 @ 03:20 by Gerardo Gates MD) Sepsis (Acute) - Physical Exam General: Vital Signs - 24 hr Temp Pulse Resp BP Pulse Ox 11/29/18 16:12 98 18 11/29/18 13:11 94 16 11/29/18 09:00 98.1 F 93 18 126/66 H 96 11/29/18 06:30 81 22 H 97 11/29/18 03:46 97.9 F 84 17 135/64 H 95 11/29/18 01:20 99 18 11/28/18 22:00 97.4 F L 88 20 H 120/68 97 11/28/18 19:15 89 16 94 Patient alert and orientated x 2 HEENT: - - Healed surgical incision on head. 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 Laboratory Results 11/28/18 22:05: POC Glucose 153 H 11/29/18 03:40: WBC 4.5, RBC 3.31 L, Hgb 10.4 L, Hct 32.7 L, MCV 98.8, MCH 31.4, MCHC 31.8 L, RDW Std Deviation 60.4 H, RDW Coeff of Emily 16.6 H, Plt Count 130 L , MPV 9.0, Immature Gran % (Auto) 1.100 H, Neut % (Auto) 84.2 H, Lymph % (Auto) 8.6 L, Phillips % (Auto) 5.7, Eos % (Auto) 0.2, Baso % (Auto) 0.2, Absolute Neuts (auto) 3.8, Absolute Lymphs (auto) 0.39 L, Absolute Nucleated RBC 0.00, Nucleated RBC % 0, Differential Comment SCANNED 11/29/18 03:40: Sodium 142, Potassium 3.9, Chloride 108 H, Carbon Dioxide 27.0, Anion Gap 7, BUN 12, Creatinine 0.63, Estim Creat Clear Calc 40.07, Est GFR (MDRD) Af Amer 120, Est GFR (MDRD) Non-Af 99, BUN/Creatinine Ratio 19.0, Glucose 176 H, Calcium 8.5 11/29/18 08:44: POC Glucose 121 H 11/29/18 11:38: POC Glucose 209 H 11/29/18 17:17: POC Glucose 235 H CXR: No active disease Assessment/Plan 68-year-old female with history of obstructive sleep apnea, status post craniotomy resection of right parietal lobe for GBM. She is immunocompromised on dexamethasone and Temodar; now present with urosepsis. Mental status appear to have improved overnight. 1) change in mental status/acute encephalopathy appeared to be related to sepsis CT head did not show acute pathology. Plan: -Continue to monitor mental status and watch for delirium 2) GBM status post craniotomy on concurrent chemotherapy radiation Plan: -Hold Temodar & and resume next week when she resume radiation therapy. 3) sepsis Plan: -Continue antibiotic -Pending blood and urine culture result. 4) acute hypoxic respiratory failure secondary to above Plan: -BiPAP as needed -Regimen for treatment of COPD and asthma -Pentamadine prophylaxis x1 & monthly for PCP. 5) DVT prophylaxis, and fall precaution. cc: Dr. Connie Cordova, Dr. Fredrick Maguire, Dr.Joseph Gates, Dr. Yadira Alston
[2018-11-29] MEDS: 0.9% NaCl Peripheral Flush Adult/Peds IV (21:00)
[2018-11-29 22:25] LABS: Bedside Glucose 294 mg/dL (70-110)
[2018-11-30 02:46] VITALS: PULSE 91; RESP 15; TEMP 36.3; O2SAT 95
[2018-11-30 03:00] VITALS: RESP 15; O2SAT 97
[2018-11-30 03:06] VITALS: BP 140/53; PULSE 99; RESP 15; TEMP 36.3; O2SAT 97
[2018-11-30 06:36] VITALS: PULSE 82; RESP 16; O2SAT 91
[2018-11-30] MEDS: Ipratropium 0.5 MG/2.5 ML SOLUTION INHALATION (06:36)
[2018-11-30 06:40] LABS: Bedside Glucose 130 mg/dL (70-110)
[2018-11-30] MEDS: Levothyroxine 50 MCG Tablet PO (06:52)
--- NOTE | 2018-11-30 07:46 | PCM.PN.HOSP ---
Patient Problems: Active and Suspected Problems (Last Reviewed 11/28/18 @ 03:20 by Gerardo Gates MD) Sepsis (Acute) Glioblastoma multiforme (Acute) Subjective: Feeling much better, off the oxygen. No acute events overnight Vitals/I&O's: Vital Signs Temp Pulse Resp BP Pulse Ox 97.3 F L 99 15 140/53 H 97 11/30/18 03:06 11/30/18 03:06 11/30/18 03:06 11/30/18 03:06 11/30/18 03:06 Oxygen Flow Rate (L/min) 1 Oxygen Delivery Method Room Air Weight: 151 lb 14.376 oz Body Mass Index (BMI) 28.7 Intake and Output for Last 24 Hours 11/28/18 11/29/18 11/30/18 23:59 23:59 23:59 Intake Total 1609 / 1609 2714 / 2914 749 / 749 Output Total 1450 / 1450 750 / 750 Balance 159 / 159 1964 / 2164 749 / 749 General: Alert, Oriented x3, Cooperative, No apparent distress, HEENT: Atraumatic, PERRLA, EOMI, Normocephalic Oral: Moist Mucosa Neck: Supple, No JVD Lungs: Clear to auscultation, Normal air movement, No rhonchi, No wheeze, No rales Cardiovascular: Regular rate, Regular Rhythm, Normal S1, Normal S2, No murmurs Abdomen: Soft, Non Tender, Non-Distended, No Hepato-splenomegaly Extremities: No edema, Capillary Refill Less than 3 Seconds Skin: No rashes, No breakdown Neurological: Neuro grossly intact, Sensory exam intact to light touch and pain Psych/Mental Status: Normal Affect, Appropriate Microbiology Past 72 Hours 11/28/18 00:25 Urine, Clean Catch Urine 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 - 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 Laboratory Results 11/29/18 08:44: POC Glucose 121 H 11/29/18 11:38: POC Glucose 209 H 11/29/18 17:17: POC Glucose 235 H 11/29/18 22:23: POC Glucose 294 H 11/30/18 06:18: POC Glucose 130 H Current Medications Acetaminophen (Tylenol) 650 mg PO Q6H PRN PRN PRN Reason: Mild Pain (1-3)/Temp > 100.7 F Last Admin: 11/28/18 08:55 Dose: 650 mg Documented by: Albuterol Sulfate (Ventolin Aerosols) 2.5 mg INHALATION Q2H PRN PRN PRN Reason: Shortness of Breath/Wheezing Amlodipine Besylate (Norvasc) 10 mg PO DAILY [facility] Last Admin: 11/29/18 09:08 Dose: 10 mg Documented by: Artificial Tears (Tears Naturale, Artificial Tears) 1 drop EACH EYE Q1H PRN PRN PRN Reason: DRY EYES Last Admin: 11/28/18 08:56 Dose: 1 drop Documented by: Calamine/Phenol (Calmoseptine Ointment) 1 applic TOPICAL BID [facility]; Protocol Last Admin: 11/29/18 20:54 Dose: Not Given Documented by: Dexamethasone (Decadron) 2 mg PO DAILYCM [facility] Last Admin: 11/29/18 09:08 Dose: 2 mg Documented by: Dextrose (D50w Syringe) 0 gm IV X1 PRN; Protocol PRN Reason: Hypoglycemia Enoxaparin Sodium (Lovenox) 40 mg SC DAILY [facility] Last Admin: 11/29/18 10:03 Dose: Not Given Documented by: Glucagon () 1 mg IM .X1 PRN PRN Reason: Hypoglycemia Sodium Chloride () 250 mls @ 15 mls/hr IV .[id number] PRN PRN Reason: SALINE FLUSH Ciprofloxacin (Cipro) 400 mg in 200 mls @ 200 mls/hr IV Q12 [facility] Last Admin: 11/29/18 20:59 Dose: 200 mls/hr Documented by: Sodium Chloride () 1,000 mls @ 100 mls/hr IV .Q10H [facility] Last Admin: 11/29/18 20:54 Dose: 100 mls/hr Documented by: Ipratropium Wisner (Atrovent) 0.5 mg INHALATION Q6H.RT [facility] Last Admin: 11/30/18 06:36 Dose: 0.5 mg Documented by: Levetiracetam (Keppra Tablet) 500 mg PO BID [facility] Last Admin: 11/29/18 20:53 Dose: 500 mg Documented by: Levothyroxine Sodium (Synthroid) 50 mcg PO DAILY@0600 [facility] Last Admin: 11/30/18 06:52 Dose: 50 mcg Documented by: Ondansetron HCl (Zofran) 4 mg IV Q8H PRN PRN PRN Reason: NAUSEA/VOMITING Pantoprazole Sodium (Protonix) 40 mg PO DAILY [facility] Last Admin: 11/29/18 09:08 Dose: 40 mg Documented by: Sodium Chloride () 10 - 40 ml IV UD PRN PRN Reason: SALINE FLUSH Last Admin: 11/29/18 21:00 Dose: 10 ml Documented by: Medical Necessity - Tobacco Use Smoking Status: Never smoker Assessment/Plan All Active Problems (Last Reviewed 11/28/18 @ 03:20 by Gerardo Gates MD) Lower gastrointestinal bleeding (Acute) Left sided colitis (Acute) Abnormal CT of the chest (Acute) Status post craniotomy (Acute) Sepsis (Acute) Glioblastoma multiforme (Acute) 1. Sepsis secondary to urinary tract infection/metabolic encephalopathy -She is allergic to Keflex and will continue with IV Cipro -Blood cultures and urine cultures are pending, urine cultures with greater than 100,000 gram-negative rods -She does seem to be improving though given her chemotherapy cannot use leukocytosis as a tool -She remains afebrile -Her confusion is resolved, she does have some baseline confusion because of her brain tumor and craniotomy -If we get sensitivities to result from her urine, can discharge home later today 2. Acute hypoxic respiratory failure-resolved -On admission she required Ventimask though now she is only on 1 L nasal cannula -Her improvement is likely secondary to the treatment of her sepsis -Chest x-ray was unremarkable 3. Brain tumor status post craniotomy -Follows with [facility] oncology -She is undergoing both radiation and chemotherapy -Her chemotherapy is completed on the which we will continue while she is here since she is on antibiotics -Her last radiation dose was supposed to be this Tuesday however she has missed the last 3 -Continue with her dexamethasone as well, and her Keppra 4. GERD -Stable -Continue with PPI 5. Hypothyroidism -Stable -Continue with Synthroid DVT: Lovenox Code Visit Inpatient E&M: 08566 Subs Hosp L2
[2018-11-30 09:00] VITALS: BP 133/55; PULSE 85; RESP 16; TEMP 36.6; O2SAT 96
[2018-11-30] MEDS: levETIRAcetam 500 MG Tablet PO (09:07)
[2018-11-30] MEDS: amLODIPine 10 MG Tablet PO (09:07)
[2018-11-30] MEDS: Pantoprazole Sodium 40 MG Tablet PO (09:07)
[2018-11-30] MEDS: dexAMETHasone 4 MG Tablet 2 MG PO (09:07)
--- NOTE | 2018-11-30 09:28 | CASEMGMT ---
Addendum entered by Kay Montez 11/30/18 09:33: SW spoke w/pt about LW. let her know POA is on chart but not LW. Pt states she does have this document, states her daughter has a copy. BARRON Amado Original Note: Pt does have POA in echart, no LW. SW printed POA and placed in paper chart. BARRON Amado
--- NOTE | 2018-11-30 10:21 | DCINST_ITS ---
- Discharge Diagnoses Current Active Problems: Current Active and Chronic Problems (Last Reviewed 11/28/18 @ 03:20 by Gerardo Gates MD) Sepsis (Acute) Glioblastoma multiforme (Acute) You will use the following diet at home:: Regular Your food should be the consistency of: Regular Your liquids should be the consistency of: Regular/Thin Discharge Activity: Return to Normal Activity Call your doctor if you observe: Fever of 101 or Higher, Shortness of breath, Dizziness, Fainting spells, Swelling in the ankles, Chest pain, Increased palpitations (irregular heartbeat) Allergies/Adverse Reactions: Allergies doxycycline Allergy (Verified 11/27/18 21:23) Itching cephalexin Adverse Reaction (Verified 11/27/18 21:23) Other escitalopram [From Lexapro] Adverse Reaction (Verified 11/27/18 21:23) Nausea shaky, sweating, tired metoclopramide [From Reglan] Adverse Reaction (Verified 11/27/18 21:23) Other morphine Adverse Reaction (Verified 11/27/18 21:23) Low blood pressure pregabalin Adverse Reaction (Verified 11/27/18 21:23) Other Medications to take at Discharge Felodipine [Plendil] 10 mg PO DAILY 02/13/15 Acetaminophen [Tylenol Tablet] 650 mg PO Q6H PRN PRN tablet 10/04/18 Amlodipine [Norvasc] 10 mg PO DAILY #30 tablet 10/04/18 Insulin Glargine [Lantus SoloStar Pen] 15 units SC QHS #1 pen 10/04/18 Levothyroxine [Synthroid] 50 mcg PO DAILY@0600 tablet 10/04/18 Pantoprazole Sodium [Protonix] 40 mg PO DAILY #30 tablet 10/04/18 Peg 400/Hypromellose/Glycerin [Artificial Tears] 1 drop EACH EYE Q1H PRN bottle 10/04/18 levETIRAcetam tablet [Keppra tablet] 500 mg PO BID #60 tablet 10/04/18 Dexamethasone [Decadron] 2 mg PO BID 11/27/18 Atorvastatin Calcium [Lipitor] 10 mg PO QHS 11/28/18 Ondansetron [Zofran] 8 mg PO DAILY PRN PRN 11/28/18 Polyethylene Glycol 3350 [Miralax] 17 gm PO DAILY 11/28/18 Psyllium Husk/Aspartame [Metamucil Powder] 11/28/18 Silver Sulfadiazine 1% Crm [Silvadene Cream] 1 applic TOPICAL BID 11/28/18 Tomozolomide 120 mg PO DAILY 11/28/18 Ciprofloxacin [Cipro] 500 mg PO BID #10 tab 11/30/18 The following prescriptions were given: Ciprofloxacin [Cipro] 500 mg PO BID #10 tab Transmission Status: Pending to [facility] Primary Care Physician: Yadira Alston MD [Primary Care Provider] - Please follow up with your Primary Care Physician in: 3-5 days Test Results: Test results from this visit will be discussed in further detail at your follow- up appointment, if applicable.
--- NOTE | 2018-11-30 10:24 | DS.PCM_ITS ---
Discharge Date and Diagnosis - Problem List Patient Problems: Active and Suspected Problems (Last Reviewed 11/28/18 @ 03:20 by Gerardo Gates MD) Sepsis (Acute) Glioblastoma multiforme (Acute) Date of Admission: 11/28/18 Date of Discharge: 11/30/18 - Primary Discharge Diagnosis Active and Suspected Problems (Last Reviewed 11/28/18 @ 03:20 by Gerardo Gates MD) Sepsis (Acute) Glioblastoma multiforme (Acute) - Secondary Discharge Diagnosis Chronic Problems (Last Reviewed 11/28/18 @ 03:20 by Gerardo Gates MD) Acquired hypothyroidism (Chronic) Benign essential HTN (Chronic) Hypertriglyceridemia (Chronic) Odynophagia (Chronic) Non-small cell lung cancer (NSCLC) (Chronic) Thoracic back pain (Chronic) IBS (irritable bowel syndrome) (Chronic) Segmental and somatic dysfunction of thoracic region (Chronic) Segmental and somatic dysfunction of lumbar region (Chronic) Thoracic neuritis (Chronic) Fibromyalgia (Chronic) Breast density (Chronic) COPD exacerbation (Chronic) Hospital Course and Treatment Imaging Results: CT Brain:IMPRESSION: Postoperative changes of the left temporal lobe probably related to surgical resection of a neoplasm. CXR: IMPRESSION: Normal x-ray examination of the chest. Consults: Oncology Operations: None Procedures: None Summary of Care Provided: Per HPI: The patient is a 68 year old F with a significant history of obstructive sleep apnea; fibromyalgia; non-small cell lung cancer status post partial lobectomy; brain tumor; and hypothyroidism who presented to the emergency department because of a fall. Associated with her symptoms is lethargy and chills. At the emergency department patient was found to have tachycardia and tachypnea. Because of low oxygenation she was put on Venturi mask. Because her urinalysis is abnormal so she was started on ciprofloxacin at the ED. However patient denies any urinary symptoms. Per family, patient has been confused after a craniotomy but her confusion increased on the day of presentation. Hospital Course: 1. Sepsis secondary to urinary tract infection/metabolic encephalopathy- 68-year-old female with a history of glioblastoma status post craniotomy and currently in chemoradiation. She presented with acute altered mental status, which was worse from her normal baseline of confusion after her surgery. She was afebrile and did not have a leukocytosis secondary to her chemotherapy, however she was lethargic and had chills. Her urine sample demonstrated Klebsiella that was sensitive to Cipro, and she was discharged on 5 more days of p.o. ciprofloxacin to complete a 7-day course secondary to her immunosuppressed status her blood cultures have both been negative for over 48 hours. I discussed the plan with her going home and she was in agreement. 2. Acute hypoxic respiratory failure-this is likely secondary to her sepsis, and initially she was on a Ventimask and is now on room air. Her chest x-ray on admission was unremarkable and her lung sounds were normal today on discharge. 3. Glioblastoma status post craniotomy currently with chemoradiation-her oncologist was contacted and he recommended stopping her chemotherapy until she completed antibiotic therapy next week. She will be sent home with outpatient follow-up. She will continue her dexamethasone as well as her Keppra while on the antibiotics. 4. Her other medical diagnoses were evaluated and her home occasions were continued where appropriate Patient Problems: Active and Suspected Problems (Last Reviewed 11/28/18 @ 03:20 by Gerardo Gates MD) Sepsis (Acute) Glioblastoma multiforme (Acute) - Physical Exam Vital Signs Temp Pulse Resp BP Pulse Ox 97.8 F 85 16 133/55 H 96 11/30/18 09:00 11/30/18 09:00 11/30/18 09:00 11/30/18 09:00 11/30/18 09:00 Oxygen Flow Rate (L/min) 1 Oxygen Delivery Method Room Air Weight: 151 lb 14.376 oz Body Mass Index (BMI) 28.7 Intake and Output for Last 24 Hours 11/28/18 11/29/18 11/30/18 23:59 23:59 23:59 Intake Total 1609 / 1609 2714 / 2914 749 / 749 Output Total 1450 / 1450 750 / 750 Balance 159 / 159 1964 / 2164 749 / 749 Microbiology Past 72 Hours 11/28/18 03:00 Blood Culture - Preliminary Blood Culture (Wb) - Right Wrist No growth in 48 hours. 11/28/18 01:25 Blood Culture - Preliminary Blood Culture (Wb) - Left Forearm No growth in 48 hours. 11/28/18 00:25 Urine Culture - Final Urine, Clean Catch Klebsiella pneumoniae sp pneum POC Glucose 11/30/18 11/29/18 11/29/18 06:18 22:23 17:17 POC Glucose 130 H 294 H 235 H 11/29/18 11:38 POC Glucose 209 H Discharge Activity: Return to Normal Activity Call your doctor if you observe: Fever of 101 or Higher, Shortness of breath, Dizziness, Fainting spells, Swelling in the ankles, Chest pain, Increased palpitations (irregular heartbeat) Home Medications: Medications to take at Discharge Felodipine [Plendil] 10 mg PO DAILY 02/13/15 Acetaminophen [Tylenol Tablet] 650 mg PO Q6H PRN PRN tablet 10/04/18 Amlodipine [Norvasc] 10 mg PO DAILY #30 tablet 10/04/18 Insulin Glargine [Lantus SoloStar Pen] 15 units SC QHS #1 pen 10/04/18 Levothyroxine [Synthroid] 50 mcg PO DAILY@0600 tablet 10/04/18 Pantoprazole Sodium [Protonix] 40 mg PO DAILY #30 tablet 10/04/18 Peg 400/Hypromellose/Glycerin [Artificial Tears] 1 drop EACH EYE Q1H PRN bottle 10/04/18 levETIRAcetam tablet [Keppra tablet] 500 mg PO BID #60 tablet 10/04/18 Dexamethasone [Decadron] 2 mg PO BID 11/27/18 Atorvastatin Calcium [Lipitor] 10 mg PO QHS 11/28/18 Ondansetron [Zofran] 8 mg PO DAILY PRN PRN 11/28/18 Polyethylene Glycol 3350 [Miralax] 17 gm PO DAILY 11/28/18 Psyllium Husk/Aspartame [Metamucil Powder] 11/28/18 Silver Sulfadiazine 1% Crm [Silvadene Cream] 1 applic TOPICAL BID 11/28/18 Tomozolomide 120 mg PO DAILY 11/28/18 Ciprofloxacin [Cipro] 500 mg PO BID #10 tab 11/30/18 Following Prescrptions Were Given to Patient: Ciprofloxacin [Cipro] 500 mg PO BID #10 tab Transmission Status: Received by [facility] Primary Care Physician: Yadira Alston MD [Primary Care Provider] - Please follow up with your Primary Care Physician in: 3-5 days Disposition: Home Minutes spent on discharge:: 35 Patient Condition:: Stable Medical Necessity - Tobacco Use Smoking Status: Never smoker Meaningful Use Info Meaningful Use Diagnoses (Choose all that apply): None applicable Code Visit Inpatient E&M: 59398 Disch Hosp
--- NOTE | 2018-11-30 10:27 | CASEMGMT ---
RN CM NOTE: Pt being discharged home w/[facility] PT/OT and RN. Message left for Carissa @ [facility] informing her that pt is discharging today. Erica BARILLASN RN CM
--- NOTE | 2018-12-04 13:46 | CASEMGMT ---
[facility] PHONE CALL DC DATE: 11/30/18 DC Disposition: Home with [facility] Diagnosis on Discharge: Sepsis /UTI. LACE/STRATA: 26/08 Unable to have phone number connect. Call to Carissa [facility] to verify pt was seen by [facility] and is current with them. Stephen BARILLASN [facility] ACM
== END 2018-11-30 11:00 | disposition home or self-care (01) | DRG 871 ==
LOC: ED 23:16 → ICU 11-28 05:40
PROVIDERS: Admitting Provider Hospitalist; Emergency Provider Emergency Medicine; Family Provider Family Medicine; PCP Family Medicine; Referring Provider Hospitalist; Visit Provider Family Medicine
DX: A41.9 Sepsis, unspecified organism (principal); J96.01 Acute respiratory failure with hypoxia; G93.41 Metabolic encephalopathy; C71.9 Malignant neoplasm of brain, unspecified; N39.0 Urinary tract infection, site not specified; M79.7 Fibromyalgia; G47.33 Obstructive sleep apnea (adult) (pediatric); E03.9 Hypothyroidism, unspecified; I10 Essential (primary) hypertension; Z79.899 Other long term (current) drug therapy; Z90.2 Acquired absence of lung [part of]; B96.1 Klebsiella pneumoniae [K. pneumoniae] as the cause of diseases classified elsewhere; E78.1 Pure hyperglyceridemia
CPT/HCPCS: 70450; 71045; 80048; 80053; 81001; 82962; 83605; 85025; 87040; 87077; 87086; 87088; 87186; 93005; 94640; 97162; 97166; 97530; 97802; 99285; J7030; J7050; A4216; J0744

== ENCOUNTER 2018-12-25 13:50 | Emergency (ER) | payer MEDICARE, OTHER, SELFPAY ==
[2018-11-28 03:46] VITALS: BMI 28.7
[2018-12-25] VITALS (7 sets, daily range): BP systolic 116–148; BP diastolic 53–77; PULSE 88–103; RESP 16–28; TEMP 36.7; O2SAT 91–94; BMI 29.6; BMI 29.7
--- NOTE | 2018-12-25 15:05 | EKG12_ITS ---
Test Reason : Blood Pressure : / mmHG Vent. Rate : 090 BPM Atrial Rate : 090 BPM P-R Int : 114 ms QRS Dur : 082 ms QT Int : 378 ms P-R-T Axes : 060 -28 099 degrees QTc Int : 462 ms Normal sinus rhythm Nonspecific ST and T wave abnormality Abnormal ECG Confirmed by ROHIT CAROL[place], VANESSA ([id number]), graphics editor MIA LAWSON ([id number]) on 12/27/2018 8:59:36 AM Referred By: KAYE Confirmed By:VANESSA BEE MD
--- NOTE | 2018-12-25 15:07 | CT_ITS ---
STUDY: CT BRAIN WITH AND WITHOUT CONTRAST REASON FOR EXAM: Female, 68 years old. Brought in for her family for increasing confusion, dizziness and weakness. Difficulty talking. Symptoms began 3 days ago. History of partial brain tumor removal in September. RADIATION DOSAGE (If Supplied By Facility): CTDIvol = ( 44.99 ) mGy, DLP = ( 1580.97 ) mGycm TECHNIQUE: Transaxial CT imaging of the brain was performed pre and post contrast administration. The examination was performed with intravenous administration of 50 IV Isovue 370. Individualized dose optimization techniques were used for this CT. COMPARISON: November 28, 2018. FINDINGS: Normal soft tissue structures. Remote left posterior parietal craniotomy. Again seen is a large area of encephalomalacia in the left posterior temporoparietal lobe underlying the craniotomy site. Minimal thickening of the overlying dura. There is no evidence of abnormal contrast enhancement. There is asymmetry of the ventricles consistent with an anatomic variant. There are areas of decreased attenuation within the white matter tracts of the supratentorial brain, consistent with microvascular disease changes. There is stable hypodensities anteriorly in both basal ganglia, left greater than right. Normal bilateral thalami. Normal brainstem. Normal cerebellum. There is no intracranial hemorrhage. There are no findings of an acute ischemic infarction. The visualized intracranial vessels appear grossly normal. Normal visualized paranasal sinuses. CT/Brain/Head W/WO Contrast IMPRESSION: No acute intracranial abnormality or interval change. Electronically Signed: Lazarus Izquierdo DO at 17:01 EDT Tel [phone], Service support ,
--- NOTE | 2018-12-25 15:28 | ED.VIS.GEN ---
History of Present Illness Chief Complaint: Confusion Detail of Chief Complaint: Depressed level of consciousness Informant: Family Limited by: - - Altered level of consciousness Onset: Days Context: Sudden Onset Timing: Continuous Quality: Decreased level conscious, retro-orbital pressure Location: Had Current Severity: Moderate Maximum Severity: Severe Worsened by: History of glioblastoma Relieved by: Nothing Associated Symptoms: Decreased urine output, decreased p.o. intake Narrative: Patient is a 68-year-old woman history of glioblastoma that was partially resected September 2018. She is presently on Decadron. Decadron was increased. She was sent to the emergency department by her radiation oncologist. She is not able to participate in history. She has markedly depressed level of conscious. When she is awakened and able to keep her eyes open the answer to her questions are appropriate for brief. The primary informant is the daughter. She mentioned palliative care. She does have a living well. She does not have a formal CODE STATUS. Prognosis is 11 to 14 months since initiation of radiation and chemotherapy, September 2018. She was recently admitted for urosepsis. Patient's only complaint is retro-orbital discomfort. She also states her eyes are heavy Prior similar symptoms: Yes Recent Illness/Hospitalization: Yes - Past Medical History (1) Glioblastoma multiforme Status: Acute (2) Left sided colitis Status: Acute (3) Lower gastrointestinal bleeding Status: Acute (4) Acquired hypothyroidism Status: Chronic (5) Benign essential HTN Status: Chronic (6) COPD exacerbation Status: Chronic (7) Hypertriglyceridemia Status: Chronic (8) IBS (irritable bowel syndrome) Status: Chronic (9) Non-small cell lung cancer (NSCLC) Status: Chronic (10) Thoracic neuritis Status: Chronic Past Medical History - Allergies and Home Meds Allergies/Adverse Reactions: Allergies doxycycline Allergy (Verified 12/25/18 13:51) Itching cephalexin Adverse Reaction (Verified 12/25/18 13:51) Other escitalopram [From Lexapro] Adverse Reaction (Verified 12/25/18 13:51) Nausea shaky, sweating, tired metoclopramide [From Reglan] Adverse Reaction (Verified 12/25/18 13:51) Other morphine Adverse Reaction (Verified 12/25/18 13:51) Low blood pressure pregabalin Adverse Reaction (Verified 12/25/18 13:51) Other Primary Care Physician: Yadira Alston MD [Primary Care Provider] - Prior records reviewed: Yes Surgical History: appendectomy, cholecystectomy, hysterectomy Lives: Alone Smoking Status: Former smoker Alcohol: None Drugs: None - Family History Paternal Family History: Family History (Last Reviewed 11/28/18 @ 03:20 by Gerardo Gates MD) Mother Diabetes Lung cancer CHF (congestive heart failure) Hypertension Father CHF (congestive heart failure) Hypertension Brother Hypertension Sister Hypertension Diabetes Aunt Breast cancer Other Heart disease Family History: Reports: No pertinent history Review of Systems ROS: Unable to Obtain - Please read history of present illness Neurological: Reports: Headache Physical Exam Vital Signs/Narrative: Vital Signs Temp Pulse Resp BP Pulse Ox 12/25/18 15:24 91 16 128/55 H 94 12/25/18 14:50 88 18 124/61 H 93 12/25/18 13:51 98.1 F 91 17 116/53 L 91 Inital Vital Signs reviewed: Yes General: Well nourished, Well developed, Obese, No Acute Distress Head: Normocephalic, Atraumatic, - - Patient has a cushingoid appearance. Eyes: Perrl, EOMI. Negative for: Pale conjunctiva, Scleral icterus ENT: No rhinorrhea, TM's clear, Dry mucous membranes Neck: Supple, Nontender, No lymphadenopathy, No JVD, - - Trachea is midline there is no stridor Cardiovascular: Regular rate, Regular rhythm, No murmurs, Normal S1, Normal S2 Respiratory: No distress, CTA bilaterally, Chest nontender Abdomen: Soft, Nontender, Nondistended, Normal bowel sounds, No masses Rectal: Deferred Back: Nontender, Normal Inspection Extremities: Nontender, Edema. Negative for: No edema, Tenderness, Calf Tenderness Skin: No rash, No Trauma, Pallor. Negative for: Normal color, Cyanosis, Diaphoresis, Jaundice Neurological: Cranial nerves II-XII grossly intact, Normal Strength - She is able to move all her extremities., Normal Sensation, Normal DTR. Negative for: Alert, Oriented x3, Normal Gait - Not able to assess Psychological: - - Somnolent Diagnostic/Tx/Re-eval Impressions Brain CT 12/25/18 15:07 IMPRESSION: No acute intracranial abnormality or interval change. Electronically Signed: Lazarus Izquierdo DO at 17:01 EDT Tel [phone], Service support , 12/25/18 15:07 CT Head [Brain/Head W/WO Contrast] [CT] Stat Laboratory Results 12/25/18 12/25/18 12/25/18 15:17 15:17 15:17 WBC 8.6 RBC 4.02 L Hgb 13.2 Hct 38.7 MCV 96.3 MCH 32.8 H MCHC 34.1 RDW Std Deviation 51.5 H RDW Coeff of Emily 14.6 Plt Count 144 L MPV 9.7 Immature Gran % (Auto) 1.900 H Neut % (Auto) 91.3 H Lymph % (Auto) 3.5 L [place] % (Auto) 3.2 Eos % (Auto) 0.0 Baso % (Auto) 0.1 Absolute Neuts (auto) 7.8 H Absolute Lymphs (auto) 0.30 L Nucleated RBC % 0.7 Differential Comment Platelet Estimate ADEQUATE RBC Morphology N CHROM Anisocytosis 1+ Sodium 137 Potassium 3.8 Chloride 104 Carbon Dioxide 23.0 Anion Gap 10 BUN 27 H Creatinine 0.93 Estim Creat Clear Calc 43.08 Est GFR (MDRD) Af Amer 77 Est GFR (MDRD) Non-Af 63 BUN/Creatinine Ratio 29.0 H Glucose 375 H Lactic Acid 4.7 H* Calcium 8.7 Total Bilirubin 0.30 AST 14 L ALT 63 H Alkaline Phosphatase 47 Total Protein 6.3 L Albumin 3.2 Globulin 3.1 Albumin/Globulin Ratio 1.0 Urine Color Urine Clarity Urine pH Ur Specific [place]ance Urine Protein Urine Glucose (UA) Urine Ketones Urine Occult Blood Urine Nitrite Urine Bilirubin Urine Urobilinogen Ur Leukocyte Esterase Urine RBC Urine WBC Ur Squamous Epith Cells Urine Bacteria Urine Mucus 12/25/18 16:14 WBC RBC Hgb Hct MCV MCH MCHC RDW Std Deviation RDW Coeff of Emily Plt Count MPV Immature Gran % (Auto) Neut % (Auto) Lymph % (Auto) [place] % (Auto) Eos % (Auto) Baso % (Auto) Absolute Neuts (auto) Absolute Lymphs (auto) Nucleated RBC % Differential Comment Platelet Estimate RBC Morphology Anisocytosis Sodium Potassium Chloride Carbon Dioxide Anion Gap BUN Creatinine Estim Creat Clear Calc Est GFR (MDRD) Af Amer Est GFR (MDRD) Non-Af BUN/Creatinine Ratio Glucose Lactic Acid Calcium Total Bilirubin AST ALT Alkaline Phosphatase Total Protein Albumin Globulin Albumin/Globulin Ratio Urine Color Yellow Urine Clarity Clear Urine pH 6.0 Ur Specific [place] 1.020 Urine Protein 15 H Urine Glucose (UA) 1000 H Urine Ketones Negative Urine Occult Blood 10 H Urine Nitrite Negative Urine Bilirubin Negative Urine Urobilinogen Normal Ur Leukocyte Esterase Negative Urine RBC 0 SEEN Urine WBC 0 SEEN Ur Squamous Epith Cells 0 SEEN Urine Bacteria 0 SEEN Urine Mucus 0 SEEN Blood work results indicate patient is prerenal. Lactate elevated 4.7. There is no evidence of urinary tract infection. CT of the head with and without contrast reveals no change. Patient was ordered a liter of normal saline wide open. She did receive bolus prior to CT with contrast as well. - EKG Initial EKG Interpretation: Sinus Rhythm - Ventricular rate is 90. RI interval is 114 ms. QRS durations 82 ms. QT duration 378 with a QTC of 462 ms. There are no ossific ST-T wave changes noted in lead I, lead II, aVL. These are essentially unchanged from November 27, 2018. Prior: Unchanged - Medical Decision Making With history of glioblastoma that was not successfully resected and increased retro-orbital pressure with headache decrease of conscious concern for intracranial hypertension and worsening of her condition secondary to the glioblastoma. She has received increased doses of Decadron. She is presently on 12 mg of Decadron. With recent history of urosepsis will obtain urine specimen by catheter. Appropriate blood work was ordered. CT of the head with and without IV contrast was ordered to evaluate patient's symptoms. Because patient has evidence of prerenal azotemia and is in shock she received IV fluids. Cavazos was left initially in place. The Cavazos is now been removed since she has been made DNR comfort care. Case management was consulted regarding end-of-life and disposition. Spoke with , 's , children and initially they requested everything. Once lab results returned informed him that her lactate was elevated and this is associated with a poor prognosis. Family had conversation by themselves. After the conversation they request to speak with me. They had many questions. Their questions were answered. They informed me that her quality of life is been poor the last 1 to 2 weeks. They also informed me that her prognosis is poor with life expectancy of only 11 to 14 months. They were informed of this september. The decision was made to make Ms. Smith DNR comfort care only. Mignon who had spoken to them will speak with them again and make arrangements for home hospice. DNR Comfort Care document was completed by me. - Critical Care Time Critical care time (excluding procedures): 30-74 minutes - 32 minutes, Discussing w/Patient &/or Family/Marketing Regional Consultant, Discussing w/Consultants, Arranging Admission or Transfer, Performing Direct Patient Care at Bedside ED Disposition - Plan for ED Patient: Disposition: Home or Assisted Living Diagnosis: Shock, unspecified, Acute prerenal azotemia, Change in mental status, Glioblastoma multiforme Referrals: Yadira Alston MD [Primary Care Provider] -
[2018-12-25 15:31] LABS: Absolute Neutrophil Count 7.8 X10^3/uL (2.0-7.7); Basophil# 0.01 X10^3/uL; Basophil% 0.1 % (0-1); Hematocrit 38.7 % (37-47); Hemoglobin 13.2 g/dL (12.0-15.0); Lymphocyte % 3.5 % (19-41); Mean Corp Hgb Conc 34.1 g/dL (32-36); Mean Corpuscular Hgb 32.8 pg (27.0-32.0); Mean Corpuscular Volume 96.3 fL (81-99); Mean Platelet Vol. 9.7 fl (6.2-12.0); Monocyte# 0.27 X10^3/uL; Monocyte% 3.2 % (0-10); NRBC Flagged by Analyzer 0.7 % (0-5); Neutrophil # 7.82 X10^3/uL (2.7-7.7); Neutrophil % 91.3 % (47-70); POSITIVE DIFFERENTIAL YES; POSITIVE MORPHOLOGY YES; Platelet Count 144 K/mm3 (150-450); RBC Distribution Width CV 14.6 % (11.6-14.6); RBC Distribution Width SD 51.5 fl (35.1-43.9); Red Blood Count 4.02 M/mm3 (4.2-5.4); White Blood Count 8.6 K/mm3 (4.4-11.0)
[2018-12-25 15:42] LABS: AST(SGOT) 14 U/L (15-37); Alanine Aminotransfer ALT/SGPT 63 U/L (13-56); Albumin, Serum 3.2 g/dL (3.2-5.0); Alkaline Phosphatase 47 U/L (45-117); Anion Gap 10 (5-15); BUN 27 mg/dL (7-18); Calcium,Total 8.7 mg/dL (8.5-10.1); Chloride 104 mmol/L (98-107); Creatinine, Serum 0.93 mg/dL (0.55-1.02); EST Glomerular Filtration Rate 63 mL/min (>60); Est Glom Filt Rate - Afr Amer 77 mL/min (>60); Estimated Creatinine Clearance 43.08 ml/min; Globulin 3.1 g/dL (2.2-4.2); Glucose 375 mg/dL (74-106); Potassium 3.8 mmol/L (3.5-5.1); Protein, Total 6.3 g/dL (6.4-8.2); Sodium Level 137 mmol/L (136-145)
[2018-12-25 15:56] LABS: Differential Indicated SCAN CRITERIA MET
[2018-12-25 15:57] LABS: Anisocytosis 1+; Platelet Estimate ADEQUATE (ADEQ); Red Cell Morphology N CHROM NORMAL (NORM C&C)
[2018-12-25 15:58] LABS: Lactic Acid 4.7 mmol/L (0.4-2.0)
--- NOTE | 2018-12-25 16:05 | CHAPLAIN ---
Type of Pastoral Visit _x__ Initial Visit ___ Follow-up Visit ___ On-call Visit ___ General Patient Visit ___ Spiritual Assessment ___ Family Conference ___ Bereavement ___ Rapid Response ___ Code Blue ___ Other (describe below) Pastoral Care Referral From ___ Patient ___ Family _x__ Nurse ___ Physician ___ Coater Hand ___ Stock Handler ___ Other (describe below) Sacrament/Intervention ___ Active listening ___ Anointing ___ Restoration ___ Bereavement ___ Communion ___ Julieta exploration ___ ___ Life review _x__ Prayer ___ Reconciliation ___ Sacrament of Sick _x__ Supportive presence ___ Wedding ___ Other (describe below) Pastoral Comments availability to family members as well
[2018-12-25 16:20] LABS: Bacteria 0 SEEN /hpf (None Seen); Mucous, Urine 0 SEEN /hpf (<or=2+); Red Blood Cells-Urine 0 SEEN /hpf (0-5); Squamous Epithelial Cells - UA 0 SEEN /hpf (5-10); White Blood Cells 0 SEEN /hpf (0-5)
[2018-12-25 16:22] LABS: Color, Urine Yellow (Yellow); Glucose, Dipstick 1000 mg/dl (Normal); Ketone-Dipstick Negative (Negative); Leukocyte Esterase-Dipstick Negative /ul (Negative); Nitrite-Dipstick Negative (Negative); Occult Blood-Urine 10 /ul (Negative); Protein-Dipstick 15 mg/dl (Negative); Urine Bilirubin Dipstick Negative (Negative); Urine Clarity Clear (Clear); Urine Urobilinogen Normal (Normal)
--- NOTE | 2018-12-25 16:39 | ED.RN ---
PT WANTS HEART CATH REMOVED. DR AWARE. REQUESTS CATHETER REMAIN UNTIL DETERMINATION OF INFECTION OCCURRS
--- NOTE | 2018-12-25 17:30 | CM.ED ---
SOCIAL WORK INFORMANT: DR. RESTREPO REASON FOR REFERRAL: END OF LIFE ISSUES MET WITH FAMILY AND DR. RESTREPO OUTSIDE OF ROOM. DR. RESTREPO DISCUSSING WORK UP WITH FAMILY. THIS WORKER PROVIDED EDUCATION ON HOSPICE SERVICES. FAMILY REQUESTING TIME TO DISCUSS. PATIENT IS FROM HOME WITH DAUGHTER AND SON-IN-LAW. PATIENT PRESENTS TO ED WITH CONFUSION AND WEAKNESS. DAUGHTER, KALE MOYA IS HPOA. FAMILY DISCUSSING OPTIONS AT THIS TIME. PLAN: TBD FARHAD NOBLES, BASEBALL CLUB MANAGER, CUSTOM FEED MILL OPERATOR HELPER.
[2018-12-25] MEDS: 0.9% Normal Saline 1,000 ML 1000 ML IV (17:35)
--- NOTE | 2018-12-25 18:00 | CM.ED ---
SOCIAL WORK FAMILY WANTING TO TAKE PATIENT HOME WITH HOSPICE. CALL TO ON-CALL CONCERT PROMOTER, KAM WHO REPORTS WILL NEED TO DISCUSS WITH SPRINKLER WORKER AND GET BACK TO THIS WORKER. AWAITING CALL BACK AT THIS TIME.
--- NOTE | 2018-12-25 18:15 | CM.ED ---
SOCIAL WORK SPOKE WITH KAM WHO REPORTS UNABLE TO ADMIT PATIENT THIS EVENING. THIS WORKER TO DISCUSS WITH FAMILY.
--- NOTE | 2018-12-25 19:00 | CM.ED ---
SOCIAL WORK DISCUSSED CASE WITH DR. RESTREPO AND WITH FAMILY. PLAN TO TAKE PATIENT HOME WITH HOSPICE TO FOLLOW UP IN THE MORNING AT HOME. PER KAM, COMBINATION WORKER- HOSPICE TO CALL FAMILY IN THE MORNING. FAMILY UPDATED ON THE ABOVE. THIS WORKER TO FAX REFERRAL TO HOSPICE. FARHAD NOBLES, CROTCH PIECE BASTER, CHILD PROTECTIVE INVESTIGATOR.
[2018-12-25 19:22] LABS: Reflex Lactate? Y
--- NOTE | 2018-12-25 20:23 | ED.VISSUMM ---
- ER Visit Summary Date of Service: 12/25/18 Chief Complaint: [] History of Present Illness: The patient is a 68 F [] Physical Examination: [] Test Results: [] Emergency Department Course and Treatment: [] Treatment Plan: [] Disposition: [] Impression: [] This note was generated with [employer] dictation software. It may contain incorrect words, spelling, and punctuation that were not noted in review of the chart prior to signing ED Disposition - Plan for ED Patient: Disposition: Home or Assisted Living Diagnosis: Shock, unspecified, Acute prerenal azotemia, Change in mental status, Glioblastoma multiforme Referrals: Yadira Alston MD [Primary Care Provider] - Additional Instructions: Your family member illness is causing poor perfusion of vital organs and has shock. This is the cause of her confusion, sleepiness and decline in mental status. Prognosis is poor. Hospice will see her and family tomorrow as arranged by case management.
--- NOTE | 2018-12-25 20:48 | ED.RN ---
NOT ABLE TO DOCUMENT ON D/C ASSESSMENT. [employer] PRODUCES A MESSAGE STATING THAT I AM NOT ABLE TO DOCUMENT BECAUSE OF MY PROVIDER TYPE. PT AND PT'S FAMILY GIVEN WRITTEN AND VERBAL D/C INSTRUCTION, VOICES UNDERSTANDING. IV D/C, CANNULA INTACT, 2X2 DRESSING IN PLACE. PT OFF UNIT VIA WHEELCHAIR.
== END 2018-12-25 20:48 | disposition home or self-care (01) ==
PROVIDERS: Emergency Provider Emergency Medicine; Family Provider Family Medicine; PCP Family Medicine
DX: R57.9 Shock, unspecified (principal); C71.9 Malignant neoplasm of brain, unspecified; R74.0 Nonspecific elevation of levels of transaminase and lactic acid dehydrogenase [LDH]; R79.89 Other specified abnormal findings of blood chemistry; J44.9 Chronic obstructive pulmonary disease, unspecified; I10 Essential (primary) hypertension; E03.9 Hypothyroidism, unspecified; K58.9 Irritable bowel syndrome, unspecified; E78.1 Pure hyperglyceridemia; E66.9 Obesity, unspecified; Z88.1 Allergy status to other antibiotic agents; Z88.8 Allergy status to other drugs, medicaments and biological substances; Z85.118 Personal history of other malignant neoplasm of bronchus and lung; Z87.891 Personal history of nicotine dependence; Z90.49 Acquired absence of other specified parts of digestive tract; Z90.710 Acquired absence of both cervix and uterus
CPT/HCPCS: 51702; 70470; 80053; 81001; 83605; 85025; 93005; 96360; 96361; 99284; J7030; Q9967; A4216; J2405